=== PATIENT | male | born 1940 | race Caucasian/White ===

== ENCOUNTER 2022-11-04 09:11 | Outpatient (OUT) | payer MEDICARE, SELFPAY ==
[2022-11-04 13:36] LABS: Prostate Specific Antigen Dx <0.13 ng/mL (<=4.00)
== END 2022-11-04 09:12 | disposition home or self-care (01) ==
LOC: LAB 09:15
PROVIDERS: PCP Nurse Practitioner Family; Visit Provider Urology
DX: Z85.46 Personal history of malignant neoplasm of prostate (principal); N40.1 Benign prostatic hyperplasia with lower urinary tract symptoms
CPT/HCPCS: 36415; 84153

== ENCOUNTER 2022-11-04 09:19 | Outpatient (OUT) | payer MEDICARE, SELFPAY ==
[2022-11-04 09:41] LABS: Basophils Absolute Auto 0.1 10^3/uL (0.0-0.1); Basophils Percent Auto 0.8 % (0.2-2.0); Eosinophils Absolute Auto 0.2 10^3/uL (0.0-0.7); Eosinophils Percent Auto 2.3 % (0.9-7.0); Hematocrit 44.9 % (42.0-54.0); Hemoglobin 15.3 g/dL (14.0-18.0); Immature Granulocytes Abs Auto 0.11 10^3/uL (0.00-0.03); Immature Granulocytes Pct Auto 1.7 % (0.0-0.5); Lymphocytes Absolute Auto 0.7 10^3/uL (1.2-3.8); Lymphocytes Percent Auto 10.9 % (20.5-60.0); Mean Corpuscular HGB Conc 34.1 g/dL (29.9-35.2); Mean Corpuscular Hemoglobin 32.1 pg (25.9-34.0); Mean Corpuscular Volume 94.1 fL (80.0-94.0); Mean Platelet Volume 9.5 fL (9.5-13.5); Monocytes Absolute Auto 0.5 10^3/uL (0.3-0.8); Monocytes Percent Auto 7.5 % (1.7-12.0); Neutrophils Percent Auto 76.8 % (43.0-75.0); Platelet Count 195 10^3/uL (150-450); Red Blood Count 4.77 10^6/uL (4.70-6.10); Red Cell Distribution Width 13.4 % (11.0-15.0); White Blood Count 6.5 10^3/uL (4.0-11.0)
[2022-11-04 10:06] LABS: Estimated Average Glucose 126 mg/dL
[2022-11-04 11:24] LABS: Free T4 1.01 ng/dL (0.76-1.46)
[2022-11-04 13:07] LABS: Alanine Aminotransferase 31 U/L (16-63); Albumin Globulin Ratio 1.1; Albumin Level 3.7 g/dL (3.4-5.0); Alkaline Phosphatase 48 U/L (46-116); Anion Gap 15.2; Aspartate Amino Transferase 18 U/L (15-37); BUN Creatinine Ratio 14.9; Bilirubin Total 0.6 mg/dL (0.2-1.0); Calcium 8.8 mg/dL (8.5-10.1); Carbon Dioxide 25.8 mmol/L (21.0-32.0); Chloride 102 mmol/L (98-107); Chol HDL Ratio 5.4; Cholesterol 189 mg/dL (<=200); Estimated GFR (African America >60 (>=60); Estimated GFR (Non-African Ame >60 (>=60); Free T3 2.35 pg/mL (2.18-3.98); Globulin 3.4 g/dL; Glucose 124 mg/dL (74-106); HDL Cholesterol 35 mg/dL (40-60); Sodium 139 mmol/L (136-145); Thyroid Stimulating Hormone 6.817 uIU/mL (0.358-3.740); Total Protein 7.1 g/dL (6.4-8.2); Triglycerides 211 mg/dL (<=150); VLDL CHOLESTEROL 42.2 mg/dL
== END 2022-11-04 09:20 | disposition home or self-care (01) ==
LOC: LAB 09:20
PROVIDERS: PCP Nurse Practitioner Family; Visit Provider Family Medicine
DX: Z00.00 Encounter for general adult medical examination without abnormal findings (principal); I10 Essential (primary) hypertension; E78.1 Pure hyperglyceridemia; E03.9 Hypothyroidism, unspecified; R73.9 Hyperglycemia, unspecified; Z85.46 Personal history of malignant neoplasm of prostate; N40.1 Benign prostatic hyperplasia with lower urinary tract symptoms
CPT/HCPCS: 36415; 80053; 80061; 83036; 84153; 84439; 84443; 84481; 85025

== ENCOUNTER 2023-01-11 13:41 | Outpatient (OUT) | payer MEDICARE, SELFPAY ==
--- NOTE | 2023-01-11 | CONS_ITS ---
CONSULTATION DATE: ??01/11/2023 TO:? Dr. Marion CHIEF COMPLAINT:? Includes right lower back pain. HISTORY OF PRESENT ILLNESS:? Review of systems, past medical/surgical history were obtained and documented on the health questionnaire and is available upon request. He is an 82-year-old male, reports having pain in the above mentioned area for the last four years.? He reports the pain is in his right lower back area, sharp in character, increased with activities such as standing, walking and performing transitioning maneuvers.? He feels most comfortable in the semi-recumbent position.? He denies any change in bowel and bladder habits or new sensorimotor changes in the lower extremities.? He has undergone a home exercise program.? He has also been treated with prednisone orally, gabapentin 100 mg daily and Tylenol p.r.n.; this along with activity modification.? He has failed conservative therapy and is intolerant to nonsteroidal use, and his pain has progressed to the point it has altered his quality of life, level of functioning and sleep pattern.? EXAMINATION:? Notable for patient having no clinical radiculopathy involving the lower extremities.? He did have severe pain with lumbar facet loading maneuvers on the right side from L4 through S1, associated with myofascial spasm.? PLAN:? I have discontinued his gabapentin secondary to ineffectiveness.? I will trial him on Zonegran 50 mg, one at h.s. for seven days, then will increase this to 100 mg at h.s. thereafter.? I have asked him to initiate aquatic therapy.? I have asked him to consider a lumbar MRI without contrast as he has failed conservative.? As well, he has tried two rounds of physical therapy, the last one approximately one year ago, and to proceed with diagnostic right L3, L4, L5 medial branch block for pain from his spondylosis.? Plan was discussed in detail with the patient.? All his questions were answered.? He agrees to proceed with the outlined plan. As part of providing excellent, safe, comprehensive care, the following was completed at our patient's visit: 1. A medication reconciliation and review to ensure accurate knowledge of current/active medications, including asking our patients to inform us about any zerx-gtm-kolzixy medications or herbal remedies/nutritional supplements/alternative remedies. 2. A review to specifically ensure our patients have had annual screening for: elevated body mass index (BMI, see intake chart for exact total), tobacco use, screening for depression, and screening for unhealthy alcohol use.? When screening is concerning, patients are provided with education and the specific recommendation to discuss the concerning health issue and treatment options with their primary care provider. KATHRYN
== END 2023-01-11 13:42 | disposition home or self-care (01) ==
LOC: PM 13:42
PROVIDERS: PCP Nurse Practitioner Family; Visit Provider Anesthesiology
DX: M54.50 Low back pain, unspecified (principal)
CPT/HCPCS: G0463

== ENCOUNTER 2023-01-13 15:41 | Outpatient (RCR) | payer MEDICARE, SELFPAY | END 2023-03-02 13:41 | disposition home or self-care (01) | LOC: PT 15:41 | PROVIDERS: PCP Nurse Practitioner Family; Visit Provider Anesthesiology | DX: M47.816 Spondylosis without myelopathy or radiculopathy, lumbar region (principal) | CPT/HCPCS: 97010; 97012; 97110; 97113; 97140; 97162; 97530; G0283 ==

== ENCOUNTER 2023-01-25 12:07 | Day surgery (SDC) | payer MEDICARE, SELFPAY ==
[2023-01-25 13:01] VITALS: BP 149/77; PULSE 77; RESP 14; TEMP 36.3; O2SAT 96
[2023-01-25 13:48] VITALS: RESP 20
[2023-01-25 13:50] VITALS: BP 149/71; PULSE 89; O2SAT 94
[2023-01-25] MEDS: BUPIVACAINE HCL 0.25% PF 25 MG/10 ML VIAL 4 ML INJ (13:51)
[2023-01-25 13:53] VITALS: BP 147/70; PULSE 80; O2SAT 97
--- NOTE | 2023-01-25 14:01 | W.PM.PROCNOT ---
Date of procedure: 01/25/23 Pre-op diagnosis: Lumbar Spondylosis Post-op diagnosis: same as pre-op Procedure: Right Lumbar 3,4,5 medial branch block Under fluoroscopic guidance Solution injected: 2millilitersMarcaine 0.25% Anesthesia :none Immediate complications none Time out process compliant After informed consent obtained from the patient placed in the Prone proposition . area was prepped and draped in a sterile fashion using Cloraprep .25 gauge spinal needle inserted over each of the above mentioned target areas . [place] were directed towards the target under fluoroscopic guidance . after encountering each of the targets , no indication of intravascular intraneuronal or intrathecal needle tip placement. Then 0 .5 to 1 Milliliter was injected at each level. [place] removed postoperatively. patient transferred to recovery in stable condition to be discharged home after meeting criteria Anesthesia: Local Surgeon: Blaise Acuna Condition: stable
== END 2023-01-25 13:57 | disposition home or self-care (01) ==
LOC: SURGOUT 12:08
PROVIDERS: PCP Nurse Practitioner Family; Visit Provider Anesthesiology Pain Medicine
DX: M47.816 Spondylosis without myelopathy or radiculopathy, lumbar region (principal)
CPT/HCPCS: 64493; 64494

== ENCOUNTER 2023-02-08 14:49 | Outpatient (OUT) | payer MEDICARE, SELFPAY ==
--- NOTE | 2023-02-08 | CONS_ITS ---
CONSULTATION DATE: ??02/08/2023 HISTORY:? Patient returns to the office complaining of 2-7/10 pain in his left buttock area, left lower extremity.? He reports the pain as being 2-7/10 pain, deep aching in character, with a sharp component, increased with activities such as standing and walking.? He reports he feels most comfortable in the semi- recumbent position and sitting.? Denies any change in bowel and bladder habits.? He reports progressive weakness and numbness of his left lower extremity. MEDICATION:? Current medication includes Zonegran 50 mg pills, two pills at bedtime; Tylenol Extra Strength.? He is unable to tolerate nonsteroidal agents.? EXAM:? His examination is notable for patient having 3/5 strength of his left extensor hallucis, a depressed left Achilles reflex.? Straight leg raise on the left side was positive at 90 degrees.? There were no clinical signs consistent with myelopathy, and hypoesthesia along the left L5 dermatome was noted.? There is significant myofascial spasm of the lumbar paravertebral muscles on the left side as well.? IMPRESSION:? Our impression is patient has chronic pain secondary to left L5 radiculopathy. RECOMMENDATIONS:? I recommend patient undergo a lumbosacral MRI without contrast.? Patient has been in physical therapy in the past.? I have asked him to continue with his aquatic program in an independent fashion.? Despite the physical therapy, he continues to have progressive weakness of the left lower extremity.? Will also obtain a lumbar spine film, PA and lateral views, and I have increased the Zonegran, 50 mg pills, three pills at h.s. and to proceed with an L5-S1 epidural injection for the patient?s radicular sign and symptoms. As part of providing excellent, safe, comprehensive care, the following was completed at our patient's visit: 1. A medication reconciliation and review to ensure accurate knowledge of current/active medications, including asking our patients to inform us about any vpyr-lnr-gaacxsz medications or herbal remedies/nutritional supplements/alternative remedies. 2. A review to specifically ensure our patients have had annual screening for: elevated body mass index (BMI, see intake chart for exact total), tobacco use, screening for depression, and screening for unhealthy alcohol use.? When screening is concerning, patients are provided with education and the specific recommendation to discuss the concerning health issue and treatment options with their primary care provider. MTDD
== END 2023-02-08 14:50 | disposition home or self-care (01) ==
LOC: PM 14:50
PROVIDERS: PCP Nurse Practitioner Family; Visit Provider Anesthesiology Pain Medicine
DX: M54.16 Radiculopathy, lumbar region (principal); G89.29 Other chronic pain
CPT/HCPCS: G0463

== ENCOUNTER 2023-02-18 10:21 | Outpatient (OUT) | payer MEDICARE, SELFPAY ==
--- NOTE | 2023-02-18 | MR_ITS ---
The [address] [address] Patient Name: MICHAEL LITTLE MRN: [id number] date: 1940 Sex: M Assigned Patient Location: MRI Current Patient Location: Accession/Order Number: [id number] Exam Date: 02/18/2023 10:50 Report Date: 02/20/2023 19:44 At the request of: KAREN BERRY Procedure: MR lumbar spine wo con MR lumbar spine wo con, 02/18/2023 10:50 AM EDT INDICATION: Lumbar Radiculopathy COMPARISON: Prior x-ray of lumbar spine dated 11/03/2021 TECHNIQUE: Multiplanar, multisequential MRI images of lumbar spine were obtained without contrast. FINDINGS: For dictation purposes, the lowest complete disc space in the lumbar spine considered as S1-S2. 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 There is mild loss of normal physiologic lumbar lordosis. The vertebral height is preserved. The conus medullaris is at the level of L2. No signal abnormality within the visualized spinal cord is noted. Level of T12-L1 is unremarkable. No neural foraminal narrowing or canal stenoses at the level of L1-L2 and L2-L3 is noted. At the level of L3-4, there are disc bulge with mild left neuroforaminal narrowing and no canal stenosis. At the level of L4-5, there are disc bulge with mild to moderate bilateral neuroforaminal narrowing and no canal stenosis. At the level of L5-S1, there grade 1 anterolisthesis uncovering the disc with severe bilateral neuroforaminal narrowing and no canal stenosis. Bilateral S1 nerve roots are in close contact with the disc bulge in the lateral recesses. The paraspinal muscles are unremarkable. Signal abnormality within the sacral bone marrow may be due to postradiation changes in appropriate clinical setting. A sclerotic lesion within the left iliac bone likely a bone island. MR/MR lumbar spine wo con IMPRESSION: Mild to moderate degenerative changes of lumbar spine in particular at L5-S1. Electronically authenticated by: PARTH WALTER Date: 02/20/2023 19:44
== END 2023-02-18 10:22 | disposition home or self-care (01) ==
LOC: MRI 10:21
PROVIDERS: PCP Nurse Practitioner Family; Visit Provider Anesthesiology Pain Medicine
DX: M47.26 Other spondylosis with radiculopathy, lumbar region (principal)
CPT/HCPCS: 72148

== ENCOUNTER 2023-03-15 11:03 | Day surgery (SDC) | payer MEDICARE, SELFPAY ==
[2023-03-15 11:33] VITALS: BP 158/88; PULSE 88; RESP 14; TEMP 36.7; O2SAT 96
[2023-03-15 12:37] VITALS: BP 139/77; PULSE 84; RESP 18; O2SAT 98
[2023-03-15] MEDS: BUPIVACAINE HCL 0.25% PF 25 MG/10 ML VIAL 2 ML INJ (12:38)
[2023-03-15] MEDS: 0.9 % SODIUM CHLORIDE 10 ML SYRINGE - SALINE FLUSH 2 ML INJ (12:38)
[2023-03-15] MEDS: METHYLPREDNISOLONE ACETATE 80 MG/ML VIAL INJ (12:38)
[2023-03-15] MEDS: LIDOCAINE HCL 2% PF 100 MG/5 ML VIAL 2 ML INJ (12:38)
[2023-03-15 12:40] VITALS: PULSE 81; RESP 16; O2SAT 98
[2023-03-15 12:42] VITALS: BP 140/77
[2023-03-15] MEDS: IOHEXOL 300 MG/ML - 50 ML BTL 12 MG INJ (12:47)
--- NOTE | 2023-03-15 13:09 | P.ON_ITS ---
Date of procedure: 03/15/23 Pre-op diagnosis: Lumbar spondylosis Post-op diagnosis: same as pre-op Procedure: Lumbar 5/sacral 1 Epidural Steroid Injection Under fluoroscopic guidance Immediate complications none Solution used for injection: Marcaine 0.25% 2mL, 2cc Normal saline, Depo-Medrol 80mg Omnipaque 3 mL Anesthesia local 2% lidocaine up to 4ml Timeout process compliant After informed consent obtained. Patient brought to the procedure room placed in the prone position. Skin overlying the area was prepped and draped in a sterile fashion using betadine. 25 gauge needle used to raise a skin wheel with local anesthetic over the target area identified under fluoroscopy. A 17 gauge Touhy needle Was inserted over the anesthetized area and directed towards the inter- space under fluoroscopic guidance. Epidural space was identified with loss of resistance technique to air. Needle Tip placement confirmed with injection of contrast solution. Steroid solution was then injected. Anesthesia: Local Surgeon: Blaise Acuna Condition: stable
== END 2023-03-15 12:46 | disposition home or self-care (01) ==
LOC: SURGOUT 11:04
PROVIDERS: PCP Nurse Practitioner Family; Visit Provider Anesthesiology Pain Medicine
DX: M47.816 Spondylosis without myelopathy or radiculopathy, lumbar region (principal)
CPT/HCPCS: 62323; J1040; Q9967

== ENCOUNTER 2023-03-30 10:18 | Outpatient (OUT) | payer MEDICARE, SELFPAY ==
--- NOTE | 2023-03-30 10:39 | PM.CN ---
Consult Note: HPI Data of Consult Patient: known to practice within the last 3 years Requesting Physician: Sahnnon Bradford NP Primary Care Provider: FRANKLYN MCCORD Consult Narrative Reason for consult: f/u Narrative: Dank Barahona a pleasant 82 year old male presents for evaluation and management of low back pain. Today rating pain 5/10 in bilateral legs, extreme numbness and heaviness left leg worse than right. Patient reporting 80% pain relief in low back pain, no change in bilateral leg numbness and weakness/heaviness. Patient does not like the way zonegran makes him feel and wants to restart gabapentin. cc:: CC: Shannon Bradford NP Review of Systems ROS Status of ROS 10 or more systems reviewed and unremarkable except as noted in history and below Meds Home Medications and Allergies Home Medications Medication Instructions Recorded Confirmed Type albuterol sulfate 90 mcg/actuation 1 puff inhalation Q4H PRN 01/14/23 03/15/23 History aerosol inhaler shortness of breath or wheezing budesonide 160 mcg-glycopyr 9 2 inh inhalation BID 01/14/23 03/15/23 History mcg-formot 4.8 mcg/actuation HFA inhaler (Breztri Aerosphere) levothyroxine 50 mcg tablet 50 mcg PO DAILY 01/14/23 03/15/23 History prednisone 5 mg tablet 5 mg PO DAILY 01/14/23 03/15/23 History tamsulosin 0.4 mg capsule 0.4 mg PO BID 01/14/23 03/15/23 History vit C 250 mg-vit E 90 mg-zinc 40 1 tab PO BID 01/14/23 03/15/23 History mg-copper 1 vx-lkerpk-rnnmsb capsule (PreserVision AREDS-2) zonisamide 50 mg capsule 150 mg PO .HS 01/14/23 03/15/23 History Allergies Allergy/AdvReac Type Severity Reaction Status Date / Time No Known Drug Allergies Allergy Verified 01/25/23 12:57 Exam Constitutional Documenting provider has reviewed patient's vital signs: yes Common normals: no apparent distress, oriented x3, healthy appearing, alert and well nourished General appearance: cooperative HENOH Common normals: normocephalic, hearing grossly normal bilaterally and moist oral mucous membranes Head and scalp: normocephalic Eye Common normals: PERRL Pupil: PERRL Neck & C-Spine Common normals: full ROM General: normal visual inspection Chest Common normals: inspection of chest normal Respiratory Common normals: normal respiratory effort, no retractions and no use of accessory muscles Back & Pelvis Lumbar spine/lower back: ROM limited and straight leg raise negative bilaterally Extremity Other: numbness tingling bilateral feet and calves no edema, discoloration. pulses equal and strong decreased sensation to touch bilaterally Neuro Common normals: oriented x3, CN's II-XII intact bilaterally, moves all extremities, no focal motor deficits, no sensory deficits noted and deep tendon reflexes 2+ bilaterally Sensorium/orientation: alert Motor exam: strength 5/5 throughout and no movement abnormalities noted Psych Common normals: mental status grossly normal, thought process normal, cooperative, affect normal, speech normal and activity/motor behavior normal Speech: normal speech Thought process: normal thought process Results Additional Findings Additional findings: I have checked an OARRS report on this patient today and there are no aberrancies noted in the prescribing history.?? A drug screen was completed and reviewed within the last year, and if there has not been a drug screen completed we ordered one today to monitor higher risk, state monitored pain medication use. As part of providing excellent, safe, comprehensive care, the following was completed at our patient's visit: 1. A medication reconciliation and review to ensure accurate knowledge of current/active medications, including asking our patients to inform us about any jhxj-zez-gtqneli medications or herbal remedies/nutritional supplements/alternative remedies. 2. A review to specifically ensure our patients have had annual screening for: elevated body mass index (BMI), tobacco use, screening for depression, and screening for unhealthy alcohol use. When screening is concerning, patients are provided with education and the specific recommendation to discuss the concerning health issue and treatment options with their primary care provider. Assessment and Plan Assessment and Plan (1) Lumbar radiculopathy: (2) Neuropathy: (3) Lumbar spondylosis: Plan emg and ncv stop zonegran start gabapentin 100mg hs for two weeks then increase to 2-3 capsules daily f/u 1 month
== END 2023-03-30 10:19 | disposition home or self-care (01) ==
LOC: PM 10:18
PROVIDERS: PCP Nurse Practitioner Family; Visit Provider Nurse Practitioner
DX: M54.16 Radiculopathy, lumbar region (principal); G62.9 Polyneuropathy, unspecified; M47.816 Spondylosis without myelopathy or radiculopathy, lumbar region
CPT/HCPCS: G0463

== ENCOUNTER 2023-05-05 09:59 | Outpatient (OUT) | payer MEDICARE, SELFPAY ==
--- OUTSIDE RECORDS SUMMARY | 2023-05-05 10:12 | XMS_ITS | CCD ---
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 removed completely through an open incision or with a laparoscope or robotics. ?Transurethral resection of the prostate (TURP). In this procedure, a tool is inserted through the opening at the tip of the penis (urethra). It is used to cut away tissue of the inner core of the prostate. The pieces are removed through the same opening of the penis. This removes the blockage. ?Transurethral incision (TUIP). In this procedure, small cuts are made in the prostate. This lessens the prostate's pressure on the urethra. ?Transurethral microwave thermotherapy (TUMT). This procedure uses microwaves to create heat. The heat destroys and removes a small amount of prostate tissue. ?Transurethral needle ablation (TUNA). This procedure uses radio frequencies to destroy and remove a small amount of prostate tissue. ?Interstitial laser coagulation (ILC). This procedure uses a laser to destroy and remove a small amount of prostate tissue. ?Transurethral electrovaporization (TUVP). This procedure uses electrodes to destroy and remove a small amount of prostate tissue. ?Prostatic urethral lift. This procedure inserts an implant to push the lobes of the prostate away from the urethra. Follow these instructions at home: Take [id number] and prescription medicines only as told by your health care provider. Monitor your symptoms for any changes. Contact your health care provider with any changes. Avoid drinking large amounts of liquid before going to bed or out in public. Avoid or reduce how much caffeine or alcohol you drink. Give yourself time when you urinate. Keep all follow-up visits as told by your health care provider. This is important. Contact a health care provider if: You have unexplained back pain. Your symptoms do not get better with treatment. You develop side effects from the medicine you are taking. Your urine becomes very dark or has a bad smell. Your lower abdomen becomes distended and you have trouble passing your urine. Get help right away if: You have a fever or chills. You suddenly cannot urinate. You feel lightheaded, or very dizzy, or you faint. There are large amounts of blood or clots in the urine. Your urinary problems become hard to manage. You develop moderate to severe low back or flank pain. The flank is the side of your body between the ribs and the hip. These symptoms may represent a serious problem that is an emergency. Do not wait to see if the symptoms will go away. Get medical help right away. Call your local emergency services (911 in the [place] Do not drive yourself to the hospital. Summary Benign prostatic hyperplasia (BPH) is an enlarged prostate that is caused by the normal aging process and not by cancer. An enlarged prostate can press on the urethra. This can make it hard to pass urine. This condition is part of a normal aging process and is more likely to develop in men over the age of 50 years. Get help right away if you suddenly cannot urinate. This information is not intended to replace advice given to you by your health care provider. Make sure you discuss any questions you have with your health care provider. Document Released: 04/25/2006 Document Revised: 03/20/2019 Document Reviewed: 05/30/2017 [employer] Patient Education 2020 [employer]. Follow Up Care 11/03/2020 12:25:53 With:ALOK GARZON, Bigg Isabel, URL Address: [facility] [address], [place] [id number]- [phone] When:Within 1 Year(s) Comments:1 year fu w PSA [facility] Evaluation + Plan note Note Date & Type Note Facility Evaluation + Plan note Future Appointments Appointment Date:11/19/2022 11:00:00 AM Scheduled Provider:Bigg DUNCAN MD Location:[facility] Appointment Type:URO Office Visit Diagnostic Tests PendingPSA Total 11/16/21PSA Total 11/16/21 [facility] Evaluation + Plan note Note Date & Type Note Facility Evaluation + Plan note Future Appointments Appointment Date:11/21/2023 09:45:00 AM Scheduled Provider:Bigg DUNCAN MD Location:[facility] Appointment Type:URO Office Visit Diagnostic Tests PendingPSA Total 10/08/23 [facility] Hospital course Narrative Note Date & Type Note Facility Hospital course Narrative No data available for this section [facility] Progress note Note Date & Type Note Facility Progress note No data available for this section [facility] Summary Purpose Family History No Family History Records FoundNo Family History Records FoundNo Family History Records FoundNo Family History Records Found Advance Directives No Advanced Directives Records FoundNo Advanced Directives Records FoundNo Advanced Directives Records FoundNo Advanced Directives Records Found Additional Source Comments (unrecognized sect ion and content) No Status Records FoundNo Status Records FoundNo Status Records FoundNo Status Records Found INFORMATION SOURCE (unrecogn ized section and content) DATE CREATED AUTHOR 11/02/2017 [facility] DATE CREATED AUTHOR AUTHOR'S ORGANIZ ATION 05/31/2021 [facility] DATE CREATED AUTHOR AUTHOR'S ORGANIZ ATION [facility]/30/2022 [facility] DATE CREATED AUTHOR AUTHOR'S ORGANIZ ATION 11/23/2022 [facility] Care Team (unrecognized sect ion and content) Personnel Name: FRANKLYN BENAVIDES CNP Address: [address] [place] [address] Personnel Name: FRANKLYN BENAVIDES CNP Address: Address: [address] [place] [address] FOR RECORDS PERTAINING TO PATIENTS WHO ARE OR HAVE BEEN ENROLLED IN A CHEMICAL DEPENDENCY/SUBSTANCEABUSE PROGRAM, SOME INFORMATION MAY BE OMITTED. This clinical summary was aggregated from multiple sources. Caution should be exercised in using it in the provision of clinical care. This summary normalizes information from multiple sources, and as a consequence, information in this document may materially change the coding, format and clinical context of patient data. In addition, data may be omitted in some cases. CLINICAL DECISIONS SHOULD BE BASED ON THE PRIMARY CLINICAL RECORDS. [facility] [employer] [facility]. provides no warranty or guarantee of the accuracy or completeness of information in this document.
--- NOTE | 2023-05-05 10:13 | P.CN_ITS ---
Consult Note: HPI Data of Consult Patient: known to practice within the last 3 years Requesting Physician: Shannon Bradford NP Primary Care Provider: FRANKLYN MCCORD Consult Narrative Reason for consult: f/u Narrative: Dank Barahona a pleasant 82 year old male presents for evaluation and management of low back pain and numbness to bilateral legs/feet. Patient finding benefit to gabapentin 100mg daily, did not try increasing as previously discussed. EMG NCV confirmed mild chronic change so S1. Patient feels his symptoms at this time are tolerable and improved. cc:: CC: Shannon Bradford NP Review of Systems ROS Status of ROS 10 or more systems reviewed and unremark able except as noted in history and below Meds Home Medications and Allergies Home Medications Medication Instructions Recorded Confirmed Type albuterol sulfate 90 mcg/actuation 1 puff inhalation Q4H PRN 01/14/23 03/15/23 History aerosol inhaler shortness of breath or wheezing budesonide 160 mcg-glycopyr 9 2 inh inhalation BID 01/14/23 03/15/23 History mcg-formot 4.8 mcg/actuation HFA inhaler (Breztri Aerosphere) levothyroxine 50 mcg tablet 50 mcg PO DAILY 01/14/23 03/15/23 History prednisone 5 mg tablet 5 mg PO DAILY 01/14/23 03/15/23 History tamsulosin 0.4 mg capsule 0.4 mg PO BID 01/14/23 03/15/23 History vit C 250 mg-vit E 90 mg-zinc 40 1 tab PO BID 01/14/23 03/15/23 History mg-copper 1 [id number] capsule (PreserVision AREDS-2) zonisamide 50 mg capsule 150 mg PO .HS 01/14/23 03/15/23 History Allergies Allergy/AdvReac Type Severity Reaction Status Date / Time No Known Drug Allergies Allergy Verified 01/25/23 12:57 Exam Constitutional Documenting provider has reviewed patient's vital signs: yes Common normals: no apparent distress, oriented x3, healthy appearing, alert and well nourished General appearance: cooperative HENMT Common normals: normocephalic, hearing grossly normal bilaterally and moist oral mucous membranes Head and scalp: normocephalic Eye Common normals: PERRL Pupil: PERRL Neck & C-Spine Common normals: full ROM General: normal visual inspection Chest Common normals: inspection of chest normal Respiratory Common normals: normal respiratory effort, no retractions and no use of accessory muscles Back & Pelvis Lumbar spine/lower back: ROM limited and straight leg raise negative bilaterally Extremity Other: numbness tingling bilateral feet and calves no edema, discoloration. pulses equal and strong decreased sensation to touch bilaterally Neuro Common normals: oriented x3, CN's II-XII intact bilaterally, moves all extremities, no focal motor deficits, no sensory deficits noted and deep tendon reflexes 2+ bilaterally Sensorium/orientation: alert Motor exam: strength 5/5 throughout and no movement abnormalities noted Psych Common normals: mental status grossly normal, thought process normal, cooperative, affect normal, speech normal and activity/motor behavior normal Speech: normal speech Thought process: normal thought process Assessment and Plan Assessment and Plan (1) Neuropathy: (2) Lumbar radiculopathy: (3) Lumbar spondylosis: Plan gabapentin 100-200mg daily f/u 6 months, consider caudal JESUS in the future
== END 2023-05-05 10:00 | disposition home or self-care (01) ==
LOC: PM 09:59
PROVIDERS: PCP Nurse Practitioner Family; Visit Provider Nurse Practitioner
DX: G62.9 Polyneuropathy, unspecified (principal); M54.16 Radiculopathy, lumbar region; M47.816 Spondylosis without myelopathy or radiculopathy, lumbar region
CPT/HCPCS: G0463

== ENCOUNTER 2023-07-22 09:21 | Outpatient (OUT) | payer MEDICARE, SELFPAY ==
--- OUTSIDE RECORDS SUMMARY | 2023-07-22 09:32 | XMS_ITS | CCD ---
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 Copies to: Uziel [...] SCV 12/01/201645 Dictated By: Uziel Mcgovern MD, [facility] 12/01/20 1217 Signed By: 12/01/201645 Normal [facility] Hemogram CBC Without Diffon 12-01-2020 Erythrocyte distribution width (RBC) [Ratio] 14.4 % Normal 12.0-14.8 [facility] Comment on above: Performed By: #### B MP, CKMB, HS TROP, CK, CBCNO #### [address] Hematocrit (Bld) [Volume fraction] 43.2 % Normal 38.8-50.0 [facility] Comment on above: Performed By: #### B MP, CKMB, HS TROP, CK, CBCNO #### [address] Hemoglobin (Bld) [Mass/Vol] 14.9 g/dL Normal 13.0-17.0 [facility] Comment on above: Performed By: #### B MP, CKMB, HS TROP, CK, CBCNO #### [address] MCH (RBC) [Entitic mass] 31.3 pg Normal 27.5-35.2 [facility] Comment on above: Performed By: #### B MP, CKMB, HS TROP, CK, CBCNO #### [address] MCV (RBC) [Entitic vol] 91.1 fL Normal 83.5-101 [facility] Comment on above: Performed By: #### B MP, CKMB, HS TROP, CK, CBCNO #### [address] Mean Corpuscular HGB Conc 34.4 g/dL Normal 32.5-35.6 [facility] Comment on above: Performed By: #### B MP, CKMB, HS TROP, CK, CBCNO #### [address] Platelet mean volume (Bld) [Entitic vol] 8.0 fL Normal 6.6-10.1 [facility] Comment on above: Result Comment: PERF ORMED BY: [place] [address] PATHOLOGIST [employer] GUILHERME BRADFORD M.D. Performed By: #### B MP, CKMB, HS TROP, CK, CBCNO #### [address] Platelets (Bld) [#/Vol] 193 10*3/uL Normal 150-450 [facility] Comment on above: Performed By: #### B MP, CKMB, HS TROP, CK, CBCNO #### [facility] [address] RBC (Bld) [#/Vol] 4.74 10*6/uL Normal 3.90-5.60 [facility] Comment on above: Performed By: #### B MP, CKMB, HS TROP, CK, CBCNO #### [address] WBC (Bld) [#/Vol] 5.8 10*3/uL Normal 4.1-10.5 [facility] Comment on above: Performed By: #### B MP, CKMB, HS TROP, CK, CBCNO #### [address] Troponin I High Sensitivityo n 12-01-2020 Troponin I High Sensitivity 3 pg/mL Normal 0-20 [facility] Comment on above: Result Comment: PERF ORMED BY: [place] [address] PATHOLOGIST [employer] GUILHERME BRADFORD M.D. Performed By: #### B MP, CKMB, HS TROP, CK, CBCNO #### [address] Troponin I High Sensitivity 4 pg/mL Normal 0-20 [facility] Comment on above: Result Comment: PERF ORMED BY: [place] [address] PATHOLOGIST [employer] GUILHERME BRADFORD M.D. Performed By: #### C MP, BNP, CBC, HS TROP #### [place] [address] [place] XR chest 1V portableon 12-01 XR chest 1V portable [facility] Main [place] [address] [place] [address] XRay Report Signed Patient: Michael Barahona MR#: [id number] 425 : 1940 Acct:[id number] Age/Sex: 79 / M ADM Date: 12/01/20 Loc: 4N Room: [address] [place] [address] Type: ADM IN Attending Dr: Evert Dent [...] Vicky Bonner M.D.12/01/2020 7:40 AM Dictation Location: [place] [address] Transcribed By: [facility] 12/01/20 0740 Dictated By: Vicky Bonner MD 12/01/20 0739 Signed By: 12/01/20 0740 Normal [facility] ECG 12 lead ECGon 11-30-2020 ECG 12 lead ECG [facility] [place] [address] Electrocardiograph Report Signed Patient: Michael Barahona MR#: [id number] 425 : 1940 Acct:[id number] Age/Sex: 79 / M ADM Date: 12/01/20 Loc: 4N Room: [address] [place] [address] Type: DIS INOo Attending Dr: Evert Dent [...] Rowland DO 11/30/201732 Signed By: 12/02/20 0800 [facility] Vital Signs Date Time Vital Sign Value Performing Clinician Sarah sanchez 11-19-2022 11:29-0400 Blood Pressure Location Bigg DUNCAN [facility] 11-19-2022 11:29-0400 Diastolic blood pressure 77 mm[Hg] Bigg DUNCAN [facility] 11-19-2022 11:29-0400 Heart rate 69 /min Bigg DUNCAN [facility] 11-19-2022 11:29-0400 Respiratory rate 16 /min Bigg DUNCAN [facility] 11-19-2022 11:29-0400 Systolic blood pressure 119 mm[Hg] Bigg DUNCAN [facility] Encounters Encounter Date Encounter Type Care Provider Facility Start: 11-21-2023 ambulatory Bigg DUNCAN Facili ty:[facility] Start: 11-19-2022 End: 11-20-2022 ambulatory Bigg DUNCAN Facility:[facility] Start: 11-19-2022 End: 11-19-2022 Patient encounter procedure Bigg DUNCAN [facility] Start: 12-31-2021 End: 01-15-2022 ambulatory FRANKLYN MCCORD Facility: Start: 11-16-2021 End: 11-16-2021 Patient encounter procedure Bigg DUNCAN [facility] Start: 11-03-2021 End: 11-04-[address] ALEXEY MICHELLE Facility:[facility] Start: 10-21-2021 End: 10-22-[address] FERNANDO GILLSEPIE Facility:[facility] Start: 10-20-2021 End: 10-21-[address] BIGG DUNCAN Facility:[facility] Start: 01-03-2017 End: 01-04-2017 Ambulatory DEFAULT PHYSICIAN Facility:[facility] Procedures Date Procedure Procedure Detail Performing Clinician Start: 10-20-[address] ALEXEY MICHELLE Comment on above: Performed By: #### PSAD #### [facility] [address] [place] [address] Dr. Vannessa Quiroga Start: 01-08-2020 Cystoscopy Bigg DUNCAN Start: 10-14-2016 Brachytherapy Bigg DUNCAN Start: [...] DUNCAN Payers Date Payer Category Payer Unknown [id number] 1940 Unknown [id number] 2.16.84 [id number] 1940 Unknown [id number] 2.16.84 [id number] 1940 Unknown [id number] 2.16.84 [id number] 1940 Unknown [id number] 2.16.84 [id number] 1940 Unknown [id number] 2.16.8 [id number] 1940 Unknown [id number] 2.16.8 [id number] Unknown Social History Date Type Detail Facility Start: 01-08-2020 Tobacco smoking status Ex-smoker (fi nding) [facility] Sex Assigned At Male [facility] Functional Status Date Assessment Result Facility 11-19-2022 Functional Status N/A [facility] 11-16-2021 Functional Status N/A [facility] Discharge instructions 11-19-2022 Note Date & [...] urethra. Follow these instructions at home: Take [id number] and prescription medicines only as told by [...] provider. Document Revised: 11/11/2021 Document Reviewed: 11/11/2021 [employer] Patient Education 2022 [employer]. Follow Up Care 11/16/2021 14:26:07 With:ALOK GARZON, Bigg Isabel, URL Address: [facility] [address], [place] [address]- When: Unknown [facility] Hospital Discharge instructions 11-16-2021 Note Date & [...] 04/25/2006 Document Revised: 01/12/2019 Document Reviewed: 03/25/2017 [employer] Patient Education 2020 [employer]. 11/16/2021 14:13:15 Benign Prostatic Hyperplasia Benign Prostatic [...] urethra. Follow these instructions at home: Take [id number] and prescription medicines only as told by [...] 04/25/2006 Document Revised: 03/20/2019 Document Reviewed: 05/30/2017 [employer] Patient Education 2020 [employer]. Follow Up Care 11/03/2020 12:25:53 With:ALOK GARZON, Bigg Isabel, URL Address: [facility] [address], [place] [address]- [phone] When:Within 1 Year(s) Comments:1 year fu w PSA [facility] Evaluation + Plan note Note Date & Type Note Facility Evaluation + Plan note Future Appointments Appointment Date:11/19/2022 11:00:00 AM Scheduled Provider:Bigg DUNCAN MD Location:[facility] Appointment Type:URO Office Visit Diagnostic Tests PendingPSA Total 11/16/21PSA Total 11/16/21 [facility] Evaluation + Plan note Note Date & Type Note Facility Evaluation + Plan note Future Appointments Appointment Date:11/21/2023 09:45:00 AM Scheduled Provider:Bigg DUNCAN MD Location:[facility] Appointment Type:URO Office Visit Diagnostic Tests PendingPSA Total 10/08/23 [facility] Hospital course Narrative Note Date & Type Note Facility Hospital course Narrative No data available for this section [facility] Progress note Note Date & Type Note Facility Progress note No data available for this section [facility] Summary Purpose Family History No Family History [...] and content) DATE CREATED AUTHOR 11/02/2017 [facility] DATE CREATED AUTHOR AUTHOR'S ORGANIZ ATION 05/31/2021 [facility] DATE CREATED AUTHOR AUTHOR'S ORGANIZ ATION 04/30/2022 [facility] DATE CREATED AUTHOR AUTHOR'S ORGANIZ ATION 11/23/2022 [facility] Care Team (unrecognized sect ion and content) Personnel Name: FRANKLYN BENAVIDES CNP Address: [address] [place] [address] Personnel Name: FRANKLYN BENAVIDES CNP Address: Address: [address] [place] [address] FOR RECORDS PERTAINING TO PATIENTS WHO ARE [...] BE BASED ON THE PRIMARY CLINICAL RECORDS. [facility] [employer] provides no warranty or guarantee of the accuracy or completeness of information in this document.
[2023-07-22 09:44] LABS: Basophils Absolute Auto 0.1 10^3/uL (0.0-0.1); Basophils Percent Auto 0.8 % (0.2-2.0); Eosinophils Absolute Auto 0.2 10^3/uL (0.0-0.7); Eosinophils Percent Auto 2.2 % (0.9-7.0); Hemoglobin 15.1 g/dL (14.0-18.0); Immature Granulocytes Abs Auto 0.08 10^3/uL (0.00-0.03); Immature Granulocytes Pct Auto 1.1 % (0.0-0.5); Lymphocytes Absolute Auto 1.2 10^3/uL (1.2-3.8); Lymphocytes Percent Auto 17.1 % (20.5-60.0); Mean Corpuscular HGB Conc 32.8 g/dL (29.9-35.2); Mean Corpuscular Hemoglobin 32.2 pg (25.9-34.0); Mean Corpuscular Volume 98.1 fL (80.0-94.0); Mean Platelet Volume 10.2 fL (9.5-13.5); Monocytes Absolute Auto 0.8 10^3/uL (0.3-0.8); Monocytes Percent Auto 11.1 % (1.7-12.0); Neutrophils Absolute Auto 4.8 10^3/uL (1.4-6.5); Neutrophils Percent Auto 67.7 % (43.0-75.0); Platelet Count 213 10^3/uL (150-450); Red Blood Count 4.69 10^6/uL (4.70-6.10); Red Cell Distribution Width 12.6 % (11.0-15.0); White Blood Count 7.1 10^3/uL (4.0-11.0)
[2023-07-22 10:44] LABS: Alanine Aminotransferase 26 U/L (16-63); Albumin Globulin Ratio 1.2; Albumin Level 3.8 g/dL (3.4-5.0); Alkaline Phosphatase 44 U/L (46-116); Anion Gap 11.7; Aspartate Amino Transferase 17 U/L (15-37); BUN Creatinine Ratio 14.3; Bilirubin Total 0.7 mg/dL (0.2-1.0); Calcium 9.2 mg/dL (8.5-10.1); Carbon Dioxide 28.2 mmol/L (21.0-32.0); Chloride 102 mmol/L (98-107); Estimated GFR (African America >60 (>=60); Estimated GFR (Non-African Ame >60 (>=60); Free T3 2.31 pg/mL (2.18-3.98); Globulin 3.2 g/dL; Glucose 105 mg/dL (74-106); Potassium 3.9 mmol/L (3.5-5.1); Sodium 138 mmol/L (136-145); Thyroid Stimulating Hormone 5.299 uIU/mL (0.358-3.740)
[2023-07-22 10:48] LABS: Bilirubin Urine NEGATIVE (NEGATIVE); Blood Urine NEGATIVE (NEGATIVE); Clarity Urine CLEAR (CLEAR); Color Urine LT. YELLOW (YELLOW); Glucose Urine UA NEGATIVE (NEGATIVE); Ketones Urine NEGATIVE (NEGATIVE); Leukocyte Esterase Urine NEGATIVE (NEGATIVE); Nitrite Urine NEGATIVE (NEGATIVE); Protein Urine NEGATIVE (NEG/TRACE); Specific Gravity Urine 1.025 (1.005-1.025); Urobilinogen Urine 0.2 EU/dL (0.2-1.0)
[2023-07-22 10:57] LABS: Bacteria Urine NONE SEEN #/HPF (NONE SEEN); Crystals Seen? None Seen #/HPF (None Seen); Mucus Urine TRACE (NONE SEEN); RBC Urine 0-2 #/HPF (0-2); Squamous Epithelial Cell Urine RARE #/LPF (NONE/RARE); WBC Urine 0-2 #/HPF (NONE SEEN)
[2023-07-22 10:58] LABS: Cast Seen? NONE SEEN #/LPF (NONE SEEN)
== END 2023-07-22 09:22 | disposition home or self-care (01) ==
LOC: LAB 09:24
PROVIDERS: PCP Nurse Practitioner Family; Visit Provider Nurse Practitioner Family
DX: R53.83 Other fatigue (principal)
CPT/HCPCS: 36415; 80053; 81001; 84436; 84443; 84481; 85025; 87086

== ENCOUNTER 2023-08-31 12:52 | Outpatient (OUT) | payer MEDICARE, SELFPAY ==
--- NOTE | 2023-08-31 17:13 | W.PM.PROCNOT ---
Date of procedure: 08/31/23 Procedure: Procedure 6-minute walk Date 08/31/2023 Indication Dyspnea MMRC 3 Procedure A 6-minute walk (6MW) was initiated according to standard protocol. Resting BP: 139/78 HR: 89 SpO2: 98% FiO2: 21% (RA) Patti: 0 Patient ambulated for a total of 2 minutes with SpO2 dropping to 88% on RA. New 6MW was initiated on 2L/min. A second 6MW was initiated. HR: 84 SpO2: 97% FiO2: 2L/min Patti: 0 Patient ambulated for a total of 6 minutes with lowest SpO2 dropping to 90% on 2L/min O2. Maximum HR was 116. Maximum Patti was 3. Patient was recovered Recovery BP: 138/85 HR: 97 SpO2: 95% FiO2: 2L/min O2 Patti: 0 Total number of stops: None Total Distance walked: 232m which is 107% of predicted walk distance Impressions: No resting hypoxemia. Ambulatory desaturations on room air successfully resolved on 2L/min supplemental O2. Excellent walk distance. Recommendations: Supplemental O2 @ 2L/min with activity/ambulation. Clinical correlation required.
== END 2023-08-31 12:53 | disposition home or self-care (01) ==
LOC: CARD 12:53
PROVIDERS: PCP Nurse Practitioner Family; Visit Provider Nurse Practitioner Family
DX: J44.9 Chronic obstructive pulmonary disease, unspecified (principal)
CPT/HCPCS: 94618

== ENCOUNTER 2023-09-21 10:37 | Outpatient (OUT) | payer MEDICARE, SELFPAY ==
--- OUTSIDE RECORDS SUMMARY | 2023-09-21 10:57 | XMS_ITS | CCD ---
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 [facility] [address] [place] [address] [place] Platelets (Bld) [#/Vol] 239 10*3/uL Normal 150-450 [facility] Comment on above: Performed By: #### C MP, BNP, CBC, HS TROP #### [facility] [address] [place] [address] RBC (Bld) [#/Vol] 5.19 10*6/uL Normal 3.90-5.60 [facility] Comment on above: Performed By: #### C MP, BNP, CBC, HS TROP #### [address] WBC (Bld) [#/Vol] 8.3 10*3/uL Normal 4.5-11.0 [facility] Comment on above: Performed By: #### C MP, BNP, CBC, HS TROP #### [address] Comprehensive Metabolic Pane johnny 12-01-2020 Albumin [Mass/Vol] 4.4 g/dL Normal 3.2-5.5 [facility] Comment on above: Performed By: #### C MP, BNP, CBC, HS TROP #### [address] Albumin/Globulin [Mass ratio] 1.6 {ratio} Normal [facility] Comment on above: Performed By: #### C MP, BNP, CBC, HS TROP #### [address] ALP [Catalytic activity/Vol] 48 U/L Normal 32-92 [facility] Comment on above: Performed By: #### C MP, BNP, CBC, HS TROP #### [address] ALT [Catalytic activity/Vol] 28 U/L Normal 10-60 [facility] Comment on above: Performed By: #### C MP, BNP, CBC, HS TROP #### [address] AST [Catalytic activity/Vol] 30 U/L Normal 10-42 [facility] Comment on above: Performed By: #### C MP, BNP, CBC, HS TROP #### [address] Bilirubin [Mass/Vol] 1.1 mg/dL Normal 0.3-1.2 [facility] Comment on above: Performed By: #### C MP, BNP, CBC, HS TROP #### [facility] [address] Calcium [Mass/Vol] 9.7 mg/dL Normal 8.2-10.2 [facility] Comment on above: Performed By: #### C MP, BNP, CBC, HS TROP #### [facility] [address] Chloride [Moles/Vol] 101 mmol/L Normal 95-114 [facility] Comment on above: Performed By: #### C MP, BNP, CBC, HS TROP #### [address] CO2 [Moles/Vol] 20.9 mmol/L Low 22.0-30.0 [facility] Comment on above: Performed By: #### C MP, BNP, CBC, HS TROP #### [address] Creatinine [Mass/Vol] 1.33 mg/dL High 0.64-1.27 [facility] Comment on above: Performed By: #### C MP, BNP, CBC, HS TROP #### [address] Creatinine Clr Calc Pharmacy 42.86 [facility] Comment on above: Result Comment: PERF ORMED BY: [place] [address] PATHOLOGIST CLOTHES SHAKER GUILHERME BRADFORD M.D. Performed By: #### C MP, BNP, CBC, HS TROP #### [address] Estimated GFR ( Kacie > 60 Normal [facility] Comment on above: Result Comment: GFR estimated reference range: According to KDOQI guidelines, <60 ml/min/1.73m2 is sufficient to diagnose a patient with chronic kidney disease. Performed By: #### C MP, BNP, CBC, HS TROP #### [address] Estimated GFR (Non- Am 52 Normal [facility] Comment on above: Performed By: #### C MP, BNP, CBC, HS TROP #### [facility] [address] Globulin (S) [Mass/Vol] 2.7 g/dL Normal [facility] Comment on above: Performed By: #### C MP, BNP, CBC, HS TROP #### [address] Glucose [Mass/Vol] 109 mg/dL High 70-100 [facility] Comment on above: Result Comment: [place] Glucose Reference Range is dependent on time and content of last meal. Glucose of more than 200 mg/dL in a nonstressed, ambulatory subject supports the diagnosis of Diabetes Mellitus. ADA recommended reference range Performed By: #### C MP, BNP, CBC, HS TROP #### [address] Potassium [Moles/Vol] 4.4 mmol/L Normal 3.5-5.1 [facility] Comment on above: Performed By: #### C MP, BNP, CBC, HS TROP #### [address] Protein [Mass/Vol] 7.1 g/dL Normal 6.1-7.9 [facility] Comment on above: Performed By: #### C MP, BNP, CBC, HS TROP #### [address] Sodium [Moles/Vol] 139 mmol/L Normal 136-146 [facility] Comment on above: Performed By: #### C MP, BNP, CBC, HS TROP #### [address] Urea nitrogen [Mass/Vol] 25 mg/dL High 9-23 [facility] Comment on above: Performed By: #### C MP, BNP, CBC, HS TROP #### [place] [address] [place] Creatine Kinaseon 07-26-2021 CK [Catalytic activity/Vol] 546 U/L High 22-269 [facility] Comment on above: Performed By: #### B MP, CKMB, HS TROP, CK, CBCNO #### [facility] [address] [place] [id number] [place] Creatinine Kinase MBon 12-01 CK.MB [Mass/Vol] 4.5 ng/mL Normal 0.6-6.3 [facility] Comment on above: Performed By: #### B MP, CKMB, HS TROP, CK, CBCNO #### [facility] [address] [place] [address] [facility] CKMB Relative Index 0.8 % Normal 0.00-2.50 [facility] Comment on above: Performed By: #### B MP, CKMB, HS TROP, CK, CBCNO #### [facility] [address] [place] [id number] [facility] ECG 12 lead ECGon 12-01-2020 ECG 12 lead ECG [facility] Main [place] [address] [place] [address] Electrocardiograph Report Signed Patient: Michael Barahona MR#: [id number] 425 : 1940 Acct:[id number] Age/Sex: 79 / M ADM Date: 12/01/20 Loc: Room: [address] [place] [address] Type: ADM INOo Attending Dr: Evert Dent [...] DO 12/01/20 0734 Signed By: 12/01/20 1214 [facility] echo transthoracicon [facility] echo transthoracic [facility] Main [place] [address] [place], [place] [id number] Echocardiogram Signed Patient: Michael Barahona MR#: [id number] 425 : 1940 Acct:[id number] Age/Sex: 79 / M ADM Date: 12/01/20 Loc: Room: [address] [place] [address] Type: ADM INOo Attending Dr: Evert Dent DO Ordering Provider: Shweta Garcia DO Date of Service: 12/01/20 [facility] echo transthoracic: pericardial effusion Copies to: Uziel [...] mmHg RAP systole: 3.0 mmHg Transcribed By: VERA 12/01/201645 Dictated By: Uziel Mcgovern MD, [facility] 12/01/20 1217 Signed By: 12/01/201645 Normal [facility] Hemogram CBC Without Diffon 12-01-2020 Erythrocyte distribution width (RBC) [Ratio] 14.4 % Normal 12.0-14.8 [facility] Comment on above: Performed By: #### B MP, CKMB, HS TROP, CK, CBCNO #### [facility] [address] [place] [address] Hematocrit (Bld) [Volume fraction] 43.2 % Normal 38.8-50.0 [facility] Comment on above: Performed By: #### B MP, CKMB, HS TROP, CK, CBCNO #### [facility] [address] Hemoglobin (Bld) [Mass/Vol] 14.9 g/dL Normal 13.0-17.0 [facility] Comment on above: Performed By: #### B MP, CKMB, HS TROP, CK, CBCNO #### [address] MCH (RBC) [Entitic mass] 31.3 pg Normal 27.5-35.2 [facility] Comment on above: Performed By: #### B MP, CKMB, HS TROP, CK, CBCNO #### [address] MCV (RBC) [Entitic vol] 91.1 fL Normal 83.5-101 [facility] Comment on above: Performed By: #### B MP, CKMB, HS TROP, CK, CBCNO #### [address] Mean Corpuscular HGB Conc 34.4 g/dL Normal 32.5-35.6 [facility] Comment on above: Performed By: #### B MP, CKMB, HS TROP, CK, CBCNO #### [address] Platelet mean volume (Bld) [Entitic vol] 8.0 fL Normal 6.6-10.1 [facility] Comment on above: Result Comment: PERF ORMED BY: [place] [address] PATHOLOGIST CLOTHES SHAKER GUILHERME BRADFORD M.D. Performed By: #### B MP, CKMB, HS TROP, CK, CBCNO #### [address] Platelets (Bld) [#/Vol] 193 10*3/uL Normal 150-450 [facility] Comment on above: Performed By: #### B MP, CKMB, HS TROP, CK, CBCNO #### [address] RBC (Bld) [#/Vol] 4.74 10*6/uL Normal 3.90-5.60 [facility] Comment on above: Performed By: #### B MP, CKMB, HS TROP, CK, CBCNO #### [address] WBC (Bld) [#/Vol] 5.8 10*3/uL Normal 4.1-10.5 [facility] Comment on above: Performed By: #### B MP, CKMB, HS TROP, CK, CBCNO #### [facility] [address] [place] [address] Troponin I High Sensitivityo n 12-01-2020 Troponin I High Sensitivity 3 pg/mL Normal 0-20 [facility] Comment on above: Result Comment: PERF ORMED BY: [place] [address] PATHOLOGIST CLOTHES SHAKER GUILHERME BRADFORD M.D. Performed By: #### B MP, CKMB, HS TROP, CK, CBCNO #### [facility] [address] [place] [address] Troponin I High Sensitivity 4 pg/mL Normal 0-20 [facility] Comment on above: Result Comment: PERF ORMED BY: [place] [address] PATHOLOGIST CLOTHES SHAKER GUILHERME BRADFORD M.D. Performed By: #### C MP, BNP, CBC, HS TROP #### [facility] [address] [place] [address] XR chest 1V portableon 12-01 XR chest 1V portable [facility] [place] [address] [place] [address] XRay Report Signed Patient: Michael Barahona MR#: [id number] 425 : 1940 Acct:[id number] Age/Sex: 79 / M ADM Date: 12/01/20 Loc: Room: [address] [place] [address] Type: ADM IN Attending Dr: Evert Dent [...] Vicky Bonner M.D.12/01/2020 7:40 AM Dictation Location: [place] [address] Transcribed By: [facility] 12/01/2040 Dictated By: Vicky Bonner MD 12/01/20 0739 Signed By: 12/01/20 0740 [facility] ECG 12 lead ECGon 11-30-2020 ECG 12 lead ECG [facility] [address] Electrocardiograph Report Signed Patient: Michael Barahona MR#: [id number] 425 : 1940 Acct:[id number] Age/Sex: 79 / M ADM Date: 12/01/20 Loc: Room: [address] [place] [address] Type: DIS INOo Attending Dr: Evert Dent [...] By: MUS Dictated By: Brenna Rowland DO 11/30/20 173 Signed By: 12/02/20 08 [facility] Vital Signs Date Time Vital Sign Value Performing Clinician Faci lity 11-19-2022 11:29-0400 Blood Pressure Location Bigg DNUCAN [facility] 11-19-2022 11:29-0400 Diastolic blood pressure 77 mm[Hg] Bigg DUNCAN [facility] 11-19-2022 11:29-0400 Heart rate 69 /min Bigg DUNCAN [facility] 11-19-2022 11:29-0400 Respiratory rate 16 /min Bigg DUNCAN [facility] 11-19-2022 11:29-0400 Systolic blood pressure 119 mm[Hg] Bigg DUNCAN [facility] Encounters Encounter Date Encounter Type Care Provider Facility Start: 11-21-2023 ambulatory Bigg DUNCAN Facili ty:[facility] Start: 09-05-2023 End: 09-05-2023 ambulatory [facility] Start: 08-09-2023 End: 08-11-2023 Emergency department patient visit [facility] Start: 08-09-2023 End: 08-10-2023 ambulatory [facility] Start: 08-02-2023 End: 08-03-2023 ambulatory [facility] Start: 08-01-2023 Telephone encounter Shanti Liu RN [facility] Start: 11-19-2022 End: 11-20-2022 ambulatory Bigg DUNCAN Facility:[facility] Start: 11-19-2022 End: 11-19-2022 Patient encounter procedure Bigg DUNCAN [facility] Start: 12-31-2021 End: 01-15-2022 ambulatory MARZENA MCCORD Facility: Start: 11-16-2021 End: 11-16-2021 Patient encounter procedure Bigg DUNCAN [facility] Start: 11-03-2021 End: 11-04-[address] ALEXEY MICHELLE Facility:[facility] Start: 10-21-2021 End: 10-22-[address] FERNANDO GILLESPIE Facility:[facility] Start: 10-20-2021 End: 10-21-[address] BIGG DUNCAN Facility:[facility] Start: 01-03-2017 End: 01-04-2017 Ambulatory DEFAULT PHYSICIAN Facility:[facility] Procedures Date Procedure Procedure Detail Performing Clinician Start: 09-05-2023 Follow-up visit Follow-up EDWIGE DELANEY Start: 10-20-[address] ALEXEY MICHELLE Comment on above: Performed By: #### PSAD #### [facility] [address] [place] [address] Dr. Vannessa Quiroga Start: 01-08-2020 Cystoscopy Bigg DUNCAN Start: 10-14-2016 Brachytherapy Bigg DUNCAN Start: 06-29-2016 Transrectal biopsy of prostate using ultrasound guidance Bigg DUNCAN Colonoscopy Bigg DUNCAN Cystoscopy Bigg DUNCAN Esophagogastroduodenoscopy P marcy DUNCAN Laser assisted in si tu keratomileusis Bigg DUNCAN Repair of musculoten dinous cuff of shoulder Bigg DUNCAN Repair of spleen Bigg ABBASI ERS Total orchidectomy Bigg CAPONE Transrectal biopsy o f prostate using ultrasound guidance Bigg DUNCAN Transurethral prostatectomy Bigg DUNCAN Plan of Treatment Date Care Activity Detail Author Start: 04-04-2024 Adult BMI Screening Adult BMI Screening [facility] Start: 04-04-2024 Tobacco Screening Tobacco Screening [facility] Start: 10-17-2023 End: 10-17-2023 Patient encounter procedure 10/17/2023 2:30 PM EDT Office Visit [facility] [address] [address] Edwige Delaney MD [address] [facility] [place] [address] [facility] Start: 04-06-2023 COVID-19 Vaccine ( season) COVID-19 Vaccine ( season) [facility] Start: 12-16-2003 Fall Risk Screening Fall Risk Screening [facility] Start: 1957 Administration of varicella zoster vaccine Zoster (Shingles) Vaccine (1 of 2) [facility] Start: 1957 DTaP,Tdap and Td Vaccines (1 - Tdap) DTaP,Tdap and Td Vaccines (1 - Tdap) [facility] Start: 1956 Adult BMI Follow Up Plan Adult BMI Follow Up Plan [facility] Start: 1950 Depression Screening Depression Screening [facility] Start: 1938 Medicare Annual Wellness Visit Medicare Annual Wellness Visit [facility] Payers Date Payer Category Payer Medicare ANTHEM MEDICARE AN[employer]M MEDICARE ADVANTAGE [id number] 2016-Present [phone] [address] [place] [address] [id number] 1959 Unknown [id number] 1940 Unknown [id number] 1940 Unknown [id number] 1938 Unknown [id number] 1938 Unknown [id number] 1938 Unknown [id number] 1938 Unknown [id number] 1938 Unknown [id number] 1940 Unknown [id number] 1940 Unknown [id number] 1940 Unknown [id number] Unknown Social History Date Type Detail Facility Start: 01-08-2020 End: 03-01-2022 Tobacco smoking status Ex-smoker (finding) [facility] Start: 06-19-2020 End: 04-04-2023 Sex Assigned At Male [facility] History of tobacco use Current smoker [facility] Start: 03-01-2022 Tobacco use and exposure Smokeless tobacco non-user [facility] Start: 04-04-2023 Alcohol intake Current non-dr object oriented developer of alcohol (finding[facility] Start: 06-19-2020 End: 04-04-2023 Alcohol intake [facility] Childcare Unknown [facility] Start: 1940 Sex Assigned At Not on file [facility] Functional Status Date Assessment Result Facility 11-19-2022 Functional Status N/A [facility] 11-16-2021 Functional Status N/A [facility] Note 08-01-2023 Telephone Encounter - Shanti Liu RN - 08/01/2023 11:44 AM EDT Note Date & Type Note Facility 08-01-2023 Miscellaneous Notes Formattin g of this note might be different from the original. Pt Angie left message, returned call left message documented in this encounter [facility] Telephone encounter Note 08-01-2023 Telephone Encounter - Shanti Liu RN - 08/01/2023 11:44 AM EDT Note Date & Type Note Facility 08-01-2023 Telephone encount er Note Pt Angie left message, returned call left message [facility] Discharge instructions 11-19-2022 Note Date & [...] urethra. Follow these instructions at home: Take sfxa-jdj-eipksnn and prescription medicines only as told by [...] provider. Document Revised: 11/11/2021 Document Reviewed: 11/11/2021 [employer] Patient Education 2022 [employer]. Follow Up Care 11/16/2021 14:26:07 With:ALOK GARZON, Bigg Isabel, URL Address: [facility] [address], [place] [id number]- When: Unknown [facility] [place] [facility] Discharge instructions 11-16-2021 Note Date & [...] 04/25/2006 Document Revised: 01/12/2019 Document Reviewed: 03/25/2017 [employer] Patient Education 2020 [employer]. 11/16/2021 14:13:15 Benign Prostatic Hyperplasia Benign Prostatic [...] urethra. Follow these instructions at home: Take alpa-gjd-rxsycbi and prescription medicines only as told by [...] 04/25/2006 Document Revised: 03/20/2019 Document Reviewed: 05/30/2017 [employer] Patient Education 2020 [employer]. Follow Up Care 11/03/2020 12:25:53 With:ALOK GARZON, RAYMUNDO Cortez Address: [facility] [address] , [place] [phone] When:Within 1 Year(s) Comments:1 year fu w PSA [facility] Evaluation + Plan note Note Date & Type Note Facility Evaluation + Plan note Future Appointments Appointment Date:11/19/2022 11:00:00 AM Scheduled Provider:Bigg DUNCAN MD Location:[facility] Appointment Type:URO Office Visit Diagnostic Tests PendingPSA Total 11/16/21PSA Total 11/16/21 [facility] Evaluation + Plan note Note Date & Type Note Facility Evaluation + Plan note Future Appointments Appointment Date:11/21/2023 09:45:00 AM Scheduled Provider:Bigg DUNCAN MD Location:[facility] Appointment Type:URO Office Visit Diagnostic Tests PendingPSA Total 10/08/23 [facility] Hospital course Narrative Note Date & Type Note Facility Hospital course Narrative No data available for this section [facility] Instructions Note Date & Type Note Facility Instructions Not on filedocumented in this en counter [facility] note Note Date & Type Note Facility Progress note No data available for this section [facility] Summary Purpose Family History No Family History [...] section and content) DATE CREATED AUTHOR 11/02/2017 [facility] DATE CREATED AUTHOR AUTHOR'S ORGANIZ ATION 05/31/2021 [facility] DATE CREATED AUTHOR AUTHOR'S ORGANIZ ATION 04/30/2022 [facility] [place] [facility] DATE CREATED AUTHOR AUTHOR'S ORGANIZ ATION [facility]2022 [facility] DATE CREATED AUTHOR AUTHOR'S ORGANIZ ATION 08/12/2023 [facility] DATE CREATED AUTHOR AUTHOR'S ORGANIZ ATION 09/06/2023 [facility] Team (unrecognized sect ion and content) Lab Technologist Relationship Specialty Start Date End Date Marzena Mccord, INFECTIOUS DISEASE TECHNICIAN-COOKING INSTRUCTOR [address] [facility] [place] [address] PCP - General Family Medicine 07/18/18 FOR RECORDS PERTAINING TO PATIENTS WHO ARE [...] BE BASED ON THE PRIMARY CLINICAL RECORDS. [employer] provides no warranty or guarantee of the accuracy or completeness of information in this document.
--- NOTE | 2023-09-21 11:15 | P.CN_ITS ---
Consult Note: HPI Data of Consult Patient: known to practice within the last 3 years Requesting Physician: Shannon Bradford NP Primary Care Provider: FRANKLYN MCCORD Consult Narrative Reason for consult: f/u Narrative: Dank Barahona a pleasant 82 year old male presents for evaluation and management of low back pain and numbness to bilateral legs/feet. Patient finding benefit to gabapentin 100mg daily, could not tolerate a higher dose. Prior EMG NCV confirmed mild chronic change so S1. Since last visit patient now utilizing home oxygen and has upcoming EKG, echocardiogram, and abdominal ultrasound. Pain today 3-4/10 in low back increasing pain and weakness in bilateral legs with twisting lifting bending activity walking, improved with sleep and lying down. Patient reports pain increases to 9/10 at its worst, denies loss of bowel/bladders, denies falls. Utilizing a walker. Prior l5-s1 JESUS provided >80% improvement greater than 3 months, patient would like to discuss repeating. cc:: CC: Shannon Bradford NP Review of Systems ROS Status of ROS 10 or more systems reviewed and unremark able except as noted in history and below Musculoskeletal Reports: back pain and muscle weakness Meds Home Medications and Allergies Home Medications ?Medication ?Instructions ?Recorded ?Confirmed ?Type albuterol sulfate 90 mcg/actuation 1 puff inhalation Q4H PRN 01/14/23 03/15/23 History aerosol inhaler shortness of breath or wheezing budesonide 160 mcg-glycopyr 9 2 inh inhalation BID 01/14/23 03/15/23 History mcg-formot 4.8 mcg/actuation HFA inhaler (Breztri Aerosphere) levothyroxine 50 mcg tablet 50 mcg PO DAILY 01/14/23 03/15/23 History prednisone 5 mg tablet 5 mg PO DAILY 01/14/23 03/15/23 History tamsulosin 0.4 mg capsule 0.4 mg PO BID 01/14/23 03/15/23 History vit C 250 mg-vit E 90 mg-zinc 40 1 tab PO BID 01/14/23 03/15/23 History mg-copper 1 [id number]-hgsqnj capsule (PreserVision AREDS-2) zonisamide 50 mg capsule 150 mg PO .HS 01/14/23 03/15/23 History gabapentin 100 mg capsule 100 mg PO DAILY #90 caps 03/04/24 Rx Allergies Allergy/AdvReac Type Severity Reaction Status Date / Time No Known Drug Allergies Allergy Verified 01/25/23 12:57 Exam Constitutional Documenting provider has reviewed patient's vital signs: yes Common normals: no apparent distress, oriented x3, healthy appearing, alert and well nourished General appearance: cooperative HENMT Common normals: normocephalic, hearing grossly normal bilaterally and moist oral mucous membranes Head and scalp: normocephalic Eye Common normals: PERRL Pupil: PERRL Neck & C-Spine Common normals: full ROM General: normal visual inspection Chest Common normals: inspection of chest normal Respiratory Common normals: normal respiratory effort, no retractions and no use of accessory muscles Back & Pelvis Lumbar spine/lower back: ROM limited, pain with ROM and straight leg raise negative bilaterally Extremity Other: numbness tingling bilateral feet and calves no edema, discoloration. pulses equal and strong decreased sensation to touch bilaterally following S1 pattern strength 4/5 in BLE Neuro Common normals: oriented x3, CN's II-XII intact bilaterally, moves all extremities, no focal motor deficits, no sensory deficits noted and deep tendon reflexes 2+ bilaterally Sensorium/orientation: alert Gait (neuro): antalgic Motor exam: no movement abnormalities noted and strength abnormal Psych Common normals: mental status grossly normal, thought process normal, cooperative, affect normal, speech normal and activity/motor behavior normal Speech: normal speech Thought process: normal thought process Assessment and Plan Assessment and Plan (1) Lumbar radiculopathy: (2) Lumbar stenosis with neurogenic claudication: (3) Neuropathy: (4) Lumbar spondylosis: Plan repeat L5-S1 JESUS under fluoroscopy. risks vs benefits discussed. prior JESUS provided >80% improvement in pain and functional ability greater than 3 months continue gabapentin 100 daily, max tolerated doses f/u 2 weeks after JESUS
== END 2023-09-21 10:38 | disposition home or self-care (01) ==
LOC: PM 10:37
PROVIDERS: PCP Nurse Practitioner Family; Visit Provider Nurse Practitioner
DX: M54.16 Radiculopathy, lumbar region (principal); M48.062 Spinal stenosis, lumbar region with neurogenic claudication; G62.9 Polyneuropathy, unspecified; M47.816 Spondylosis without myelopathy or radiculopathy, lumbar region
CPT/HCPCS: G0463

== ENCOUNTER 2023-09-27 09:50 | Day surgery (SDC) | payer MEDICARE, SELFPAY ==
[2023-09-27 10:13] VITALS: BP 149/82; PULSE 90; TEMP 37; O2SAT 95
[2023-09-27 11:17] VITALS: BP 142/63; PULSE 95; O2SAT 97
[2023-09-27 11:19] VITALS: BP 145/65; PULSE 92; O2SAT 97
[2023-09-27] MEDS: IOHEXOL 240 MG/ML - 10 ML VIAL 24 MG INJ (11:23)
[2023-09-27] MEDS: 0.9 % SODIUM CHLORIDE 10 ML SYRINGE - SALINE FLUSH 2 ML INJ (11:23)
[2023-09-27] MEDS: BUPIVACAINE HCL 0.25% PF 25 MG/10 ML VIAL 2 ML INJ (11:23)
--- NOTE | 2023-09-27 11:23 | P.ON_ITS ---
Date of procedure: 09/27/23 Pre-op diagnosis: Lumbar radiculopathy Post-op diagnosis: same as pre-op Procedure: Lumbar 5/sacral 1 Epidural Steroid Injection Under fluoroscopic guidance Immediate complications none Solution used for injection: Marcaine 0.25% 2mL, 2cc Normal saline, Depo-Medrol 80mg Omnipaque 3 mL Anesthesia local 2% lidocaine up to 4ml Timeout process compliant After informed consent obtained. Patient brought to the procedure room placed in the prone position. Skin overlying the area was prepped and draped in a sterile fashion using betadine. 25 gauge needle used to raise a skin wheel with local anesthetic over the target area identified under fluoroscopy. A 17 gauge Touhy needle Was inserted over the anesthetized area and directed towards the inter- space under fluoroscopic guidance. Epidural space was identified with loss of resistance technique to air. Needle Tip placement confirmed with injection of contrast solution. Steroid solution was then injected. Anesthesia: Local Surgeon: Blaise Acuna Condition: stable
[2023-09-27] MEDS: LIDOCAINE HCL 2% PF 100 MG/5 ML VIAL 3 ML INJ (11:24)
[2023-09-27] MEDS: METHYLPREDNISOLONE ACETATE 80 MG/ML VIAL INJ (11:24)
== END 2023-09-27 11:26 | disposition home or self-care (01) ==
LOC: SURGOUT 09:51
PROVIDERS: PCP Nurse Practitioner Family; Visit Provider Anesthesiology Pain Medicine
DX: M54.16 Radiculopathy, lumbar region (principal)
CPT/HCPCS: 62323; J1010; Q9966

== ENCOUNTER 2023-10-06 13:36 | Outpatient (OUT) | payer MEDICARE, SELFPAY ==
--- NOTE | 2023-10-06 13:48 | PM.CN ---
Consult Note: HPI Data of Consult Patient: known to practice within the last 3 years Requesting Physician: Shannon Bradford NP Primary Care Provider: FRANKLYN MCCORD Consult Narrative Reason for consult: f/u Narrative: Dank Barahona a pleasant 82 year old male presents for evaluation and management of low back pain and numbness to bilateral legs/feet. Patient finding benefit to gabapentin 100mg daily, could not tolerate a higher dose. Prior EMG NCV confirmed mild chronic change so S1. Pain today 2/10 in low back increasing pain and weakness in bilateral legs with twisting lifting bending activity walking, improved with sleep and lying down. Patient reports pain increases to 9/10 at its worst, denies loss of bowel/bladders, denies falls. Utilizing a walker. Recently underwent repeat L5-S1 JESUS with moderate improvement ongoing. cc:: CC: Shannon Bradford NP Review of Systems ROS Status of ROS 10 or more systems reviewed and unremarkable except as noted in history and below Musculoskeletal Reports: back pain Meds Home Medications and Allergies Home Medications ?Medication ?Instructions ?Recorded ?Confirmed ?Type albuterol sulfate 90 mcg/actuation 1 puff inhalation Q4H PRN 01/14/23 09/27/23 History aerosol inhaler shortness of breath or wheezing budesonide 160 mcg-glycopyr 9 2 inh inhalation BID 01/14/23 09/27/23 History mcg-formot 4.8 mcg/actuation HFA inhaler (Breztri Aerosphere) levothyroxine 50 mcg tablet 50 mcg PO DAILY 01/14/23 09/27/23 History prednisone 5 mg tablet 5 mg PO DAILY 01/14/23 09/27/23 History tamsulosin 0.4 mg capsule 0.4 mg PO BID 01/14/23 09/27/23 History vit C 250 mg-vit E 90 mg-zinc 40 1 tab PO BID 01/14/23 09/27/23 History mg-copper 1 ne-ijwkmz-raxsru capsule (PreserVision AREDS-2) gabapentin 100 mg capsule 100 mg PO DAILY #90 caps 07/11/23 09/27/23 Rx Allergies Allergy/AdvReac Type Severity Reaction Status Date / Time No Known Drug Allergies Allergy Verified 09/27/23 10:21 Exam Constitutional Documenting provider has reviewed patient's vital signs: yes Common normals: no apparent distress, oriented x3, healthy appearing, alert and well nourished General appearance: cooperative [facility] Common normals: normocephalic, hearing grossly normal bilaterally and moist oral mucous membranes Head and scalp: normocephalic Eye Common normals: PERRL Pupil: PERRL Neck & C-Spine Common normals: full ROM General: normal visual inspection Chest Common normals: inspection of chest normal Respiratory Common normals: normal respiratory effort, no retractions and no use of accessory muscles Back & Pelvis Lumbar spine/lower back: ROM limited, pain with ROM and straight leg raise negative bilaterally Sacroiliac joints: SI joints normal Extremity Other: numbness tingling bilateral feet and calves no edema, discoloration. pulses equal and strong decreased sensation to touch bilaterally following S1 pattern strength 4/5 in BLE Neuro Common normals: oriented x3, CN's II-XII intact bilaterally, moves all extremities, no focal motor deficits, no sensory deficits noted and deep tendon reflexes 2+ bilaterally Sensorium/orientation: alert Gait (neuro): antalgic Motor exam: no movement abnormalities noted and strength abnormal Psych Common normals: mental status grossly normal, thought process normal, cooperative, affect normal, speech normal and activity/motor behavior normal Speech: normal speech Thought process: normal thought process Assessment and Plan Assessment and Plan (1) Lumbar radiculopathy: (2) Lumbar stenosis with neurogenic claudication: (3) Neuropathy: (4) Lumbar spondylosis: Plan patient would like to try gabapentin 100mg BID, will call if he experiences side effects f/u 3 months, sooner if needed
--- OUTSIDE RECORDS SUMMARY | 2023-10-06 13:53 | XMS_ITS | CCD ---
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 [facility] Comment on above: Performed By: #### B MP, CKMB, HS TROP, CK, CBCNO #### [address] WBC (Bld) [#/Vol] 5.8 10*3/uL Normal 4.1-10.5 [facility] Comment on above: Performed By: #### B MP, CKMB, HS TROP, CK, CBCNO #### [address] Troponin I High Sensitivityo n 12-01-2020 Troponin I High Sensitivity 3 pg/mL Normal 0-20 [facility] Comment on above: Result Comment: PERF ORMED BY: [place] [address] PATHOLOGIST PRODUCTION ASSISTANT GUILHERME BRADFORD M.D. Performed By: #### B MP, CKMB, HS TROP, CK, CBCNO #### [address] Troponin I High Sensitivity 4 pg/mL Normal 0-20 [facility] Comment on above: Result Comment: PERF ORMED BY: [place] [address] PATHOLOGIST PRODUCTION ASSISTANT GUILHERME BRADFORD M.D. Performed By: #### C MP, BNP, CBC, HS TROP #### [place] [id number] [place] XR chest 1V portableon 12-01 XR chest 1V portable [facility] [place] [address] XRay Report Signed Patient: Michael Barahona MR#: [id number] 425 : 1940 Acct:[id number] Age/Sex: 79 / M ADM Date: 12/01/20 Loc: Room: [address] [place] [address] Type: ADM IN Attending Dr: Evert Dent [...] Vicky Bonner M.D.12/01/2020 7:40 AM Dictation Location: [place] [address] Transcribed By: [facility] 12/01/2040 Dictated By: Vicky Bonner MD 12/01/20 0739 Signed By: 12/01/20 0740 Normal [facility] ECG 12 lead ECGon 11-30-2020 ECG 12 lead ECG [facility] [place] [id number] Electrocardiograph Report Signed Patient: Michael Barahona MR#: [id number] 425 : 1940 Acct:[id number] Age/Sex: 79 / M ADM Date: 12/01/20 Loc: 4N Room: [address] [place] [address] Type: DIS INOo Attending Dr: Evert Dent [...] Rowland DO 11/30/20 173 Signed By: 12/02/20 0800 [facility] Vital Signs Date Time Vital Sign Value Performing Clinician Sarah sanchez 11-19-2022 11:29-0400 Blood Pressure Location Bigg DUNCAN [facility] 11-19-2022 11:29-0400 Diastolic blood pressure 77 mm[Hg] Bigg DUNCAN [facility] 11-19-2022 11:29-0400 Heart rate 69 /min Bigg DUNCAN [facility] 11-19-2022 11:29-0400 Respiratory rate 16 /min Bigg DUNCAN [facility] 11-19-2022 11:29-0400 Systolic blood pressure 119 mm[Hg] Bigg DUNCAN [facility] Encounters Encounter Date Encounter Type Care Provider Facility Start: 11-21-2023 ambulatory Bigg Payne ty:[facility] Start: 09-29-2023 End: 09-30-2023 ambulatory EDWIGE Dwight ELAINA [facility] Start: 09-26-2023 End: 09-27-2023 ambulatory EDWIGE Dwight ELAINA [facility] Start: 09-05-2023 End: 09-05-2023 ambulatory EDWIGE DELANEY [facility] Start: 08-09-2023 End: 08-11-2023 Emergency department patient visit ANTHON[facility] Start: 08-09-2023 End: 08-10-2023 ambulatory MARZENA MCCORD [facility] Start: 08-02-2023 End: 08-03-2023 ambulatory EDWIGE DELANEY [facility] Start: 08-01-2023 Telephone encounter Shanti Liu RN [facility] Start: 11-19-2022 End: 11-20-2022 ambulatory Bigg DUNCAN Facility:[facility] Start: 11-19-2022 End: 11-19-2022 Patient encounter procedure Bigg DUNCAN [facility] Start: 12-31-2021 End: 01-15-2022 ambulatory MARZENA MCCORD Facility:[facility] Start: 11-16-2021 End: 11-16-2021 Patient encounter procedure Bigg DUNCAN [facility] Start: 11-03-2021 End: 11-04-[address] ALEXEY MICHELLE Facility:[facility] Start: 10-21-2021 End: 10-22-[address] FERNANDO GILLESPIE Facility:[facility] Start: 10-20-2021 End: 10-21-[address] BIGG DUNCAN Facility:[facility] Start: 01-03-2017 End: 01-04-2017 Ambulatory DEFAULT PHYSICIAN Facility:[facility] Procedures Date Procedure Procedure Detail Performing Clinician Start: 09-05-2023 Follow-up visit Follow-up EDWIGE DELANEY Start: 10-20-[address] ALEXEY MICHELLE Comment on above: Performed By: #### PSAD #### [facility] [address] [place] [address] [address] Vannessa Quiroga Start: 01-08-2020 Cystoscopy Bigg DUNCAN Start: 10-14-2016 Brachytherapy Bigg DUNCAN Start: 06-29-2016 Transrectal biopsy of prostate using ultrasound guidance Bigg DUNCAN Colonoscopy Bigg DUNCAN Cystoscopy Bigg DUNCAN Esophagogastroduodenoscopy P marcy DUNCAN Laser assisted in si tu keratomileusis Bigg DUNCAN Repair of musculoten dinous cuff of shoulder Bigg DUNCAN Repair of spleen Bigg ELROY ECHEVERRIA Total orchidectomy Bigg Shweta CAPONE Transrectal biopsy o f prostate using ultrasound guidance Bigg DUNCAN Transurethral prostatectomy Bigg DUNCAN Plan of Treatment Date Care Activity Detail Author Start: 04-04-2024 Adult BMI Screening Adult BMI Screening [facility] Start: 04-04-2024 Tobacco Screening Tobacco Screening [facility] Start: 10-17-2023 End: 10-17-2023 Patient encounter procedure 10/17/2023 2:30 PM EDT Office Visit [facility] [address] [place] [address] Edwige Delaney MD [address] [address] [facility] Start: 04-06-2023 COVID-19 Vaccine ( season) COVID-19 Vaccine ( season) [facility] Start: 12-16-2003 Fall Risk Screening Fall Risk Screening [facility] Start: 1957 Administration of varicella zoster vaccine Zoster (Shingles) Vaccine (1 of 2) [facility] Start: 1957 DTaP,Tdap and Td Vaccines (1 - Tdap) DTaP,Tdap and Td Vaccines (1 - Tdap) [facility] Start: 1956 Adult BMI Follow Up Plan Adult BMI Follow Up Plan [facility] [employer] Start: 1950 Depression Screening Depression Screening [facility] Start: 1938 Medicare Annual Wellness Visit Medicare Annual Wellness Visit [facility] Payers Date Payer Category Payer Medicare ANTHEM MEDICARE ANTHEM MEDICARE ADVANTAGE [id number] 2016-Present [phone] [address] [place] [address] [id number] 1959 Unknown [id number] 1940 Unknown [id number] 1940 Unknown [id number] 1938 Unknown [id number] [id number] 1938 Unknown [id number] 1938 Unknown [id number] [id number] 1938 Unknown [id number] [id number] 1938 Unknown [id number] [id number] 6 1940 Unknown [id number] [id number] 6 1938 Unknown [id number] [id number] 6 1938 Unknown [id number] 2.16.840.1.328973.3.579.2.128 6 1938 Unknown [id number] [id number] 6 1938 Unknown [id number] [id number] 6 1940 Unknown [id number] [id number] 6 Unknown Social History Date Type Detail Facility Start: 01-08-2020 End: 03-01-2022 Tobacco smoking status Ex-smoker (finding) [facility] Start: 06-19-2020 End: 04-04-2023 Sex Assigned At Male [facility] History of tobacco use Current smoker [facility] Start: 03-01-2022 Tobacco use and exposure Smokeless tobacco non-user [facility] Start: 04-04-2023 Alcohol intake Current non-dr administrative fellow of alcohol (finding) [facility] Start: 06-19-2020 End: 04-04-2023 Alcohol intake [facility] Childcare Unknown [facility] Start: 1940 Sex Assigned At Not on file [facility] Functional Status Date Assessment Result Facility 11-19-2022 Functional Status N/A [facility] 11-16-2021 Functional Status N/A [facility] Note 08-01-2023 Telephone Encounter - Shanti Liu RN - 08/01/2023 11:44 AM EDT Note Date & Type Note Facility 08-01-2023 Miscellaneous Notes Formattin g of this note might be different from the original. Pt Angie left message, returned call left message documented in this encounter [facility] Telephone encounter Note 08-01-2023 Telephone Encounter - Shanti Liu RN - 08/01/2023 11:44 AM EDT Note Date & Type Note Facility 08-01-2023 Telephone encount er Note Pt Angie left message, returned call left message [facility] Hospital Discharge instructions 11-19-2022 Note Date & [...] urethra. Follow these instructions at home: Take mnam-ebs-brbkgua and prescription medicines only as told by [...] provider. Document Revised: 11/11/2021 Document Reviewed: 11/11/2021 [employer] Patient Education 2022 [employer] Follow Up Care 11/16/2021 14:26:07 With:ALOK GARZON, Bigg Isabel, URL Address: [facility] [address] , [place] [address]- When: Unknown [facility] Hospital Discharge instructions 11-16-2021 Note Date [...] 04/25/2006 Document Revised: 01/12/2019 Document Reviewed: 03/25/2017 [employer] Patient Education 2020 [employer]. 11/16/2021 14:13:15 Benign Prostatic Hyperplasia Benign Prostatic [...] urethra. Follow these instructions at home: Take cter-axd-jhpxssy and prescription medicines only as told by [...] 04/25/2006 Document Revised: 03/20/2019 Document Reviewed: 05/30/2017 [employer] Patient Education 2020 [employer] Follow Up Care 11/03/2020 12:25:53 With:ALOK GARZON, Bigg Isabel, SILVIOL Address: [facility] [address], [place] [phone] When:Within 1 Year(s) Comments:1 year fu w PSA [facility] Evaluation + Plan note Note Date & Type Note Facility Evaluation + Plan note Future Appointments Appointment Date:11/19/2022 11:00:00 AM Scheduled Provider:Bigg DUNCAN MD Location:[facility] Appointment Type:URO Office Visit Diagnostic Tests PendingPSA Total 11/16/21PSA Total 11/16/[address] [facility] Evaluation + Plan note Note Date & Type Note Facility Evaluation + Plan note Future Appointments Appointment Date:11/21/2023 09:45:00 AM Scheduled Provider:Bigg DUNCAN MD Location:[facility] Appointment Type:URO Office Visit Diagnostic Tests PendingPSA Total 10/08/[address] [facility] Hospital course Narrative Note Date & Type Note Facility Hospital course Narrative No data available for this section [facility] Instructions Note Date & Type Note Facility Instructions Not on filedocumented in this en counter [facility] Progress note Note Date & Type Note Facility Progress note No data available for this section [facility] Summary Purpose Family History No Family History [...] section and content) DATE CREATED AUTHOR 11/02/2017 [facility] DATE CREATED AUTHOR AUTHOR'S ORGANIZ ATION 05/31/2021 [facility] DATE CREATED AUTHOR AUTHOR'S ORGANIZ ATION 04/30/2022 [facility] DATE CREATED AUTHOR AUTHOR'S ORGANIZ ATION 11/23/2022 [facility] DATE CREATED AUTHOR AUTHOR'S ORGANIZ ATION 09/06/2023 [facility] DATE CREATED AUTHOR AUTHOR'S ORGANIZ ATION 10/01/2023 [facility] Care Team (unrecognized sect ion and content) 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 [employer] [facility]. provides no warranty or guarantee of the accuracy or completeness of information in this document.
== END 2023-10-06 13:37 | disposition home or self-care (01) ==
LOC: PM 13:37
PROVIDERS: PCP Nurse Practitioner Family; Visit Provider Nurse Practitioner
DX: M54.16 Radiculopathy, lumbar region (principal); M48.062 Spinal stenosis, lumbar region with neurogenic claudication; G62.9 Polyneuropathy, unspecified; M47.816 Spondylosis without myelopathy or radiculopathy, lumbar region
CPT/HCPCS: G0463

== ENCOUNTER 2023-11-17 14:20 | Outpatient (OUT) | payer MEDICARE, SELFPAY ==
[2023-11-17 16:13] LABS: Prostate Specific Antigen Dx <0.13 ng/mL (<=4.00)
== END 2023-11-17 14:21 | disposition home or self-care (01) ==
LOC: LAB 14:21
PROVIDERS: PCP Nurse Practitioner Family; Visit Provider Urology
DX: Z85.46 Personal history of malignant neoplasm of prostate (principal)
CPT/HCPCS: 36415; 84153

== ENCOUNTER 2023-12-26 13:35 | Outpatient (OUT) | payer MEDICARE, SELFPAY ==
[2023-12-26 14:16] LABS: Ammonia 15 umol/L (11-32)
[2023-12-26 16:00] LABS: Alanine Aminotransferase 29 U/L (16-63); Albumin Globulin Ratio 1.2; Albumin Level 3.7 g/dL (3.4-5.0); Alkaline Phosphatase 49 U/L (46-116); Anion Gap 10.7; Aspartate Amino Transferase 15 U/L (15-37); BUN Creatinine Ratio 17.6; Bilirubin Total 0.6 mg/dL (0.2-1.0); Calcium 9.2 mg/dL (8.5-10.1); Carbon Dioxide 27.6 mmol/L (21.0-32.0); Chloride 101 mmol/L (98-107); Estimated GFR (African America >60 (>=60); Estimated GFR (Non-African Ame >60 (>=60); Globulin 3.2 g/dL; Glucose 98 mg/dL (74-106); Potassium 4.3 mmol/L (3.5-5.1); Sodium 135 mmol/L (136-145); Total Protein 6.9 g/dL (6.4-8.2)
== END 2023-12-26 13:36 | disposition home or self-care (01) ==
LOC: LAB 13:36
PROVIDERS: PCP Nurse Practitioner Family; Visit Provider Nurse Practitioner Family
DX: I10 Essential (primary) hypertension (principal)
CPT/HCPCS: 36415; 80053; 82140

== ENCOUNTER 2024-01-05 13:14 | Outpatient (OUT) | payer MEDICARE, SELFPAY ==
--- NOTE | 2024-01-05 14:01 | P.CN_ITS ---
Consult Note: HPI Data of Consult Patient: known to practice within the last 3 years Requesting Physician: Shannon Bradford NP Primary Care Provider: FRANKLYN MCCORD Consult Narrative Reason for consult: f/u Narrative: Dank Barahona a pleasant 83 year old male presents for evaluation and management of low back pain and numbness to bilateral legs/feet. Patient finding no benefit to gabapentin 100mg daily, could not tolerate a higher dose. Prior EMG NCV confirmed mild chronic change to S1. Pain today 6/10 in low back increasing pain and weakness in bilateral legs with twisting lifting bending activity walking, improved with sleep and lying down. Patient reports pain increases to 9/10 at its worst, denies loss of bowel/bladders, denies falls. Utilizing a walker. Patient does not feel his last JESUS was helpful and would like to discuss alternative treatment options. cc:: CC: Shannon Bradford NP Review of Systems ROS Status of ROS 10 or more systems reviewed and unremark able except as noted in history and below Musculoskeletal Reports: back pain, extremity pain and muscle weakness Meds Home Medications and Allergies Home Medications ?Medication ?Instructions ?Recorded ?Confirmed ?Type albuterol sulfate 90 mcg/actuation 1 puff inhalation Q4H PRN 01/14/23 09/27/23 History aerosol inhaler shortness of breath or wheezing budesonide 160 mcg-glycopyr 9 2 inh inhalation BID 01/14/23 09/27/23 History mcg-formot 4.8 mcg/actuation HFA inhaler (Breztri Aerosphere) levothyroxine 50 mcg tablet 50 mcg PO DAILY 01/14/23 09/27/23 History prednisone 5 mg tablet 5 mg PO DAILY 01/14/23 09/27/23 History tamsulosin 0.4 mg capsule 0.4 mg PO BID 01/14/23 09/27/23 History vit C 250 mg-vit E 90 mg-zinc 40 1 tab PO BID 01/14/23 09/27/23 History mg-copper 1 [id number] capsule (PreserVision AREDS-2) gabapentin 100 mg capsule 100 mg PO DAILY #90 caps 07/11/23 09/27/23 Rx Allergies Allergy/AdvReac Type Severity Reaction Status Date / Time No Known Drug Allergies Allergy Verified 09/27/23 10:21 Exam Constitutional Documenting provider has reviewed patient's vital signs: yes Common normals: no apparent distress, oriented x3, healthy appearing, alert and well nourished General appearance: cooperative HENMT Common normals: normocephalic, hearing grossly normal bilaterally and moist oral mucous membranes Head and scalp: normocephalic Eye Common normals: PERRL Pupil: PERRL Neck & C-Spine Common normals: full ROM General: normal visual inspection Chest Common normals: inspection of chest normal Respiratory Common normals: no retractions and no use of accessory muscles Effort & inspection: not able to speak in complete sentences Back & Pelvis Lumbar spine/lower back: ROM limited, pain with ROM and straight leg raise negative bilaterally Sacroiliac joints: SI joints normal Other: chronic pain following L5/S1 dermatomal pattern numbness tingling to bilateral calves and feet, severe per pt strength 4/5 in BLE Extremity Common normals: normal to inspection and full ROM Neuro Common normals: oriented x3, CN's II-XII intact bilaterally, moves all extremities, no focal motor deficits, no sensory deficits noted and deep tendon reflexes 2+ bilaterally Sensorium/orientation: alert Gait (neuro): antalgic Motor exam: strength 5/5 throughout and no movement abnormalities noted Psych Common normals: mental status grossly normal, thought process normal, cooperative, affect normal, speech normal and activity/motor behavior normal Speech: normal speech Thought process: normal thought process Results Additional Findings Additional findings: If on a controlled substance or opioids, I have checked an [place] report on this patient and there are no aberrancies noted in the prescribing history.??If on a controlled substance or opioid a drug screen was completed and reviewed within the last year, and if there has not been a drug screen completed we ordered one today to monitor higher risk, state monitored pain medication use. As part of providing excellent, safe, comprehensive care, the following was completed at our patient's visit: 1. A medication reconciliation and review to ensure accurate knowledge of current/active medications, including asking our patients to inform us about any [id number] medications or herbal remedies/nutritional supplements/alternative remedies. 2. A review to specifically ensure our patients have had annual screening for screening for depression, screening for tobacco use, and screening for unhealthy alcohol use. For concerning screenings had a discussion with the patient, provided patient education, and recommended follow-up with primary care provider when appropriate. If patient noted with a risk of falling, they received education on strength, gait, and balance training to prevent future risk of falling. Assessment and Plan Assessment and Plan (1) Lumbar radiculopathy: (2) Lumbar spondylosis: Plan Patient expressed interest in surgical intervention for chronic pain, however he does not want back surgery. we discussed trialing a spinal cord stimulator for chronic lumbar radiculopathy unresponsive to greater than 6 weeks of PT, NSAIDs, tylenol, and gabapentin. Patient would like to proceed with spinal cord stimulator trial, risks vs benefits reviewed. We ask that patient complete the psychiatric evaluation and we will request records from PCP from recent visits as patient has a hx of COPD but worsening SOB over the last few months. patient would require PAT prior to IV sedation required to place the spinal cord stimulator trial. handout provided, all questions answered.
== END 2024-01-05 13:15 | disposition home or self-care (01) ==
PROVIDERS: PCP Nurse Practitioner Family; Visit Provider Nurse Practitioner
DX: M54.16 Radiculopathy, lumbar region (principal); M47.816 Spondylosis without myelopathy or radiculopathy, lumbar region
CPT/HCPCS: G0463

== ENCOUNTER 2024-02-10 10:55 | Outpatient (OUT) | payer MEDICARE, SELFPAY ==
--- NOTE | 2024-02-10 | XR_ITS ---
The [address] [address] Patient Name: MICHAEL LITTLE MRN: [id number] date: 1940 Sex: M Assigned Patient Location: Current Patient Location: Accession/Order Number: [id number] Exam Date: 02/10/2024 11:05 Report Date: 02/12/2024 07:21 At the request of: VILLA PRICE Procedure: XR lumbar spine min 4V EXAMINATION: XR lumbar spine min 4V HISTORY: LUMBAR SPINE PAIN COMPARISON: XR L-spine 11/03/2021 FINDINGS: BONES: 21 mm anterior listhesis of L5 on S1 secondary to bilateral pars interarticularis defects. Mild degenerative facet arthropathy L3-L4, L4-L5. Mild bone encroachment on the neural foramen L2-L3 through L5-S1. Normal height and alignment of the remaining lumbar vertebral bodies. Multilevel prominent anterior endplate osteophytes. DISC SPACES: Moderate narrowing L5-S1. Normal height at remaining levels. PARASPINOUS: Negative. No paraspinous abnormality is seen. OTHER: Negative. XR/XR lumbar spine min 4V IMPRESSION: 1. 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 2. Multilevel mild degenerative changes. Electronically authenticated by: JULI OWUSU Date: 02/12/2024 07:21
--- OUTSIDE RECORDS SUMMARY | 2024-02-10 11:07 | XMS_ITS | CCD ---
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 disease. 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 Approved by Resident Miki Gray MD on 10/31/2023 10:44 AM Calos Hubbard MD have personally reviewed the image(s) and agree with and/or edited the report Finalized by Calos Amaya MD on 10/31/2023 11:13 AM Normal [facility] US ABDOMEN LMTDon 10-01-2023 US ABDOMEN LMTD [...] Reilly MD on 10/01/2023 8:35 AM Normal [facility] CBC AND AUTO DIFFon 08-10-19 ABSOLUTE BASOPHIL 0.0 X10E9/L Normal 0.0-0.2 [facility] Comment on above: Performed By: #### C BILLIE [facility], 90634-5 ####[facility] ([id number])[address] [place] [address] 98112 ABSOLUTE NEUTROPHIL 9.7 X10E9/L High 1.5-6.6 [facility] Comment on above: Performed By: #### C BUDDY WISE, 78589-9 ####[facility] ([id number])[address] [place] [address] 46635 Basophils/100 WBC (Bld) 0.2 % Normal [facility] Comment on above: Performed By: #### C BILLIE [facility], 74552-9 ####[facility] ([id number])[address] [place] [address] 80779 Eosinophils (Bld) [#/Vol] 0.0 10*3/uL Normal 0.0-0.4 [facility] Comment on above: Performed By: #### C BUDDY WISE, ####[facility] ([id number])[address] [place] [address] 69198 Eosinophils/100 WBC (Bld) 0.0 % Normal [facility] Comment on above: Performed By: #### Sarah WISE CMP, ####[facility] ([id number])[address] [place] [address] 82616 Erythrocyte distribution width (RBC) [Ratio] 14.1 % Normal 11.5-15.0 [facility] Comment on above: Performed By: #### Sarah WISE CMP, ####[facility] ([id number])[address] [place] [address] 22778 Hematocrit (Bld) [Volume fraction] 41.7 % Normal 39-49 [facility] Comment on above: Performed By: #### Sarah WISE CMP, ####[facility] ([id number])[address] [place] [address] 93142 Hemoglobin (Bld) [Mass/Vol] 14.1 g/dL Normal 13.0-17.0 [facility] Comment on above: Performed By: #### Sarah WISE CMP, ####[facility] ([id number])[address] [place] [address] 81583 Lymphocytes (Bld) [#/Vol] 0.4 10*3/uL Low 1.0-3.5 [facility] Comment on above: Performed By: #### Sarah WISE CMP, ####[facility] ([id number])[address] [place] [address] 06834 Lymphocytes/100 WBC (Bld) 3.4 % Normal [facility] Comment on above: Performed By: #### C BILLIE, CMP, ####[facility] ([id number])[address] [place] [address] 73402 MCH (RBC) [Entitic mass] 33.0 pg Normal 27-34 [facility] Comment on above: Performed By: #### Sarah WISE, CMP, ####[facility] ([id number])[address] [place] [address] 18765 MCHC (RBC) [Mass/Vol] 33.9 g/dL Normal 32-36 [facility] Comment on above: Performed By: #### Sarah WISE, CMP, ####[facility] ([id number])[address] [place] [address] 06649 MCV (RBC) [Entitic vol] 97 fL Normal 80-100 [facility] Comment on above: Performed By: #### Sarah WISE, CMP, ####[facility] ([id number])[address] [place] [address] 78801 Monocytes (Bld) [#/Vol] 0.2 10*3/uL Normal 0-0.9 [facility] Comment on above: Performed By: #### Sarah WISE, CMP, ####[facility] ([id number])[address] [place] [address] 02140 Monocytes/100 WBC (Bld) 1.7 % Normal [facility] Comment on above: Performed By: #### Sarah WISE, CMP, ####[facility] ([id number])[address] [place] [address] 65596 Neutrophils/100 WBC (Bld) 94.7 % Normal [facility] Comment on above: Performed By: #### Sarah WISE, CMP, ####[facility] ([id number])[address] [place] [address] 69796 Platelet mean volume (Bld) [Entitic vol] 8.7 fL Normal 7-12 [facility] Comment on above: Performed By: #### Sarah WISE CMP, 49953-1 ####[facility] ([id number])[address] [place] [address] 24828 Platelets (Bld) [#/Vol] 227 10*3/uL Normal 150-450 [facility] Comment on above: Performed By: #### Sarah WISE CMP, ####[facility] ([id number])[address] [place] [address] 28503 RBC COUNT 4.29 X10E12/L Normal 4.10-5.70 [facility] Comment on above: Performed By: #### Sarah WISE CMP, 40113-9 ####[facility] ([id number])[address] [place] [address] 09561 WBC (Bld) [#/Vol] 10.2 10*3/uL Normal 4.0-11.0 [facility] Comment on above: Performed By: #### Sarah WISE, CMP, 92381-5 ####[facility] ([id number])[address] [place] [address] 79762 COMPREHENSIVE METABOLIC PANE Johnny 08-10-2023 Albumin [Mass/Vol] 3.7 g/dL Normal 3.2-5.3 [facility] Comment on above: Performed By: #### Sarah WISE CMP, 49812-6 ####[facility] ([id number])[address] [place] [address] 41293 ALP [Catalytic activity/Vol] 34 U/L Low 39-130 [facility] Comment on above: Performed By: #### Sarah WISE, CMP, 10601-0 ####[facility] ([id number])[address] [place] [address] [place] [address] ALT [Catalytic activity/Vol] 27 U/L Normal 0-40 [facility] Comment on above: Performed By: #### C BUDDY WISE, ####[facility] ([id number])[address] [place] [address] [place] [address] Anion gap [Moles/Vol] 11 mmol/L Normal 5-15 [facility] Comment on above: Performed By: #### C BUDDY WISE, ####[facility] ([id number])[address] [place] [address] 43662 AST [Catalytic activity/Vol] 21 U/L Normal 0-41 [facility] Comment on above: Performed By: #### C BILLIE [facility], ####[facility] ([id number])[address] [place] [address] 10632 Bilirubin [Mass/Vol] 1.0 mg/dL Normal 0.3-1.2 [facility] Comment on above: Performed By: #### C BILLIE [facility], ####[facility] ([id number])[address] [place] [address] 83217 Calcium [Mass/Vol] 8.9 mg/dL Normal 8.5-10.5 [facility] Comment on above: Performed By: #### C BILLIE [facility], ####[facility] ([id number])[address] [place] [address] [place] [address] Chloride [Moles/Vol] 104 mmol/L Normal 98-109 [facility] Comment on above: Performed By: #### C BILLIE CMP, ####[facility] ([id number])[address] [place] [address] [place] [address] CO2 [Moles/Vol] 21 mmol/L Low 22-32 [facility] Comment on above: Performed By: #### C BILLIE [facility], ####[facility] ([id number])[address] [place] [address] 58809 Creatinine [Mass/Vol] 1.04 mg/dL Normal 0.70-1.20 [facility] Comment on above: Result Comment: METH OD TRACEABLE TO IDMS STANDARD Performed By: #### C BILLIE [facility], ####[facility] ([id number])[address] [place] [address] 96586 GFR/1.73 sq M.predicted among non-blacks MDRD (S/P/Bld) [Vol rate/Area] 71 mL/min/{1.73_m2} Normal >59 [facility] Comment on above: Result Comment: Reported eGFR is based on the CKD-EPI 2020 equation that does not use a race coefficient. Performed By: #### C BILLIE [facility], ####[facility] ([id number])[address] [place] [address] 18455 Glucose [Mass/Vol] 144 mg/dL High 65-99 [facility] Comment on above: Performed By: #### C BILLIE [facility], ####[facility] ([id number])[address] [place] [address] 14011 Potassium [Moles/Vol] 4.1 mmol/L Normal 3.5-5.0 [facility] Comment on above: Performed By: #### C BILLIE [facility], ####[facility] ([id number])[address] [place] [address] 67432 Protein [Mass/Vol] 6.1 g/dL Normal 6.0-8.0 [facility] Comment on above: Performed By: #### C BILLIE [facility], ####[facility] ([id number])[address] [place] [address] 71114 Sodium [Moles/Vol] 136 mmol/L Normal 134-146 [facility] Comment on above: Performed By: #### C BCA, CMP, 46238-5 ####[facility] ([id number])[address] [place] [address] 96617 Urea nitrogen [Mass/Vol] 20 mg/dL Normal 5-27 [facility] Comment on above: Performed By: #### C BCA, CMP, 96731-1 ####[facility] ([id number])[address] [place] [address] 20933 MAGNESIUMon 08-10-2023 Magnesium [Mass/Vol] 2.1 mg/dL Normal 1.8-2.6 [facility] Comment on above: Performed By: #### C BCA, CMP, 22509-2 ####[facility] ([id number])[address] [place] [address] 38713 CBC AND AUTO DIFFon 08-09-19 24 Band form neutrophils/100 WBC (Bld) 1.0 % Normal [facility] Comment on above: Performed By: #### C BCA, CMP, 65993-4, 32609-9, 35556-1, 69382-2, 45632-4, PINR, 55755-5 #### [facility] ([id number]) [address] [place] [address] 67826 Eosinophils (Bld) [#/Vol] 0.1 10*3/uL Normal 0.0-0.4 [facility] Comment on above: Performed By: #### C BCA, CMP, 87366-5, 47814-2, 03311-2, 99268-3, 33620-8, PINR, 07736-7 #### [facility] ([id number]) [address] [place] [address] 34832 Eosinophils/100 WBC (Bld) 1.0 % Normal [facility] Comment on above: Performed By: #### C BCA, CMP, 42625-6, 17038-2, 51471-4, 73029-0, 67266-7, PINR, 98249-1 #### [facility] ([id number]) [address] [place] [address] 24155 Erythrocyte distribution width (RBC) [Ratio] 13.9 % Normal 11.5-15.0 [facility] Comment on above: Performed By: #### C BCA, CMP, 13796-0, 20716-4, 65789-1, 24367-8, 94333-8, PINR, 55288-0 #### [facility] ([id number]) [address] [place] [address] 30323 Hematocrit (Bld) [Volume fraction] 42.3 % Normal 39-49 [facility] Comment on above: Performed By: #### C BCA, CMP, 14126-5, 94212-1, 23935-2, 95708-4, 97462-3, PINR, 13810-5 #### [facility] ([id number]) [address] [place] [address] 78744 Hemoglobin (Bld) [Mass/Vol] 14.5 g/dL Normal 13.0-17.0 [facility] Comment on above: Performed By: #### C BCA, CMP, 83098-5, 43548-0, 62623-9, 80586-7, 63819-1, PINR, 70353-5 #### [facility] ([id number]) [address] [place] [address] 87328 Lymphocytes (Bld) [#/Vol] 1.2 10*3/uL Normal 1.0-3.5 [facility] Comment on above: Performed By: #### C BCA, CMP, 89338-4, 38860-7, 08386-0, 32679-5, 68191-2, PINR, 01108-8 #### [facility] ([id number]) [address] [place] [address] 50836 Lymphocytes/100 WBC (Bld) 14.0 % Normal [facility] Comment on above: Performed By: #### C BCA, CMP, 69733-4, 36654-8, 78955-9, 64629-8, 78029-2, PINR, 88967-1 #### [facility] ([id number]) [address] [place] [address] 28186 MCH (RBC) [Entitic mass] 33.2 pg Normal 27-34 [facility] Comment on above: Performed By: #### C BCA, CMP, 98366-6, 84920-6, 58406-3, 77495-3, 23463-0, PINR, 46369-6 #### [facility] ([id number]) [address] [place] [address] 59427 MCHC (RBC) [Mass/Vol] 34.3 g/dL Normal 32-36 [facility] Comment on above: Performed By: #### C BCA, CMP, 71482-2, 45029-1, 04550-5, 47601-1, 21276-3, PINR, 83027-2 #### [facility] ([id number]) [address] [place] [address] 48245 MCV (RBC) [Entitic vol] 97 fL Normal 80-100 [facility] Comment on above: Performed By: #### C BCA, CMP, 15736-9, 13549-3, 46995-2, 49083-2, 17683-5, PINR, 21304-7 #### [facility] ([id number]) [address] [place] [address] 60786 Metamyelocytes/100 WBC (Bld) 1.0 % Normal [facility] Comment on above: Performed By: #### C BCA, CMP, 95999-1, 97581-6, 62177-7, 95212-6, 61714-5, PINR, 20296-3 #### [facility] ([id number]) [address] [place] [address] 42632 Monocytes (Bld) [#/Vol] 0.8 10*3/uL Normal 0-0.9 [facility] Comment on above: Performed By: #### C BCA, CMP, 93054-1, 44830-2, 60950-8, 48993-2, 93920-4, PINR, 75481-7 #### [facility] ([id number]) [address] [place] [address] 03686 Monocytes/100 WBC (Bld) 9.0 % Normal [facility] Comment on above: Performed By: #### C BCA, CMP, 40256-8, 30683-1, 63400-7, 30671-2, 82269-6, PINR, 39090-7 #### [facility] ([id number]) [address] [place] [address] 09876 MYELOCYTE 1.0 % Normal [facility] Comment on above: Performed By: #### C BCA, CMP, 42379-9, 89933-9, 70742-8, 59226-1, 85930-4, PINR, 65217-9 #### [facility] ([id number]) [address] [place] [address] 44015 Neutrophils (Bld) [#/Vol] 6.4 10*3/uL Normal 1.5-6.6 [facility] Comment on above: Performed By: #### C BCA, CMP, 13135-2, 37222-1, 38266-5, 49843-6, 34407-2, PINR, 19528-1 #### [facility] ([id number]) [address] [place] [address] 99218 Platelet mean volume (Bld) [Entitic vol] 9.0 fL Normal 7-12 [facility] Comment on above: Performed By: #### C BCA, CMP, 83449-3, 39036-4, 92766-1, 66388-2, 49920-8, PINR, 32940-9 #### [facility] ([id number]) [address] [place] [address] 17705 Platelets (Bld) [#/Vol] 241 10*3/uL Normal 150-450 [facility] Comment on above: Performed By: #### C BCA, CMP, 38191-2, 92767-9, 11070-7, 00803-5, 76795-7, PINR, 30350-3 #### [facility] ([id number]) [address] [place] [address] 61318 RBC COUNT 4.37 X10E12/L Normal 4.10-5.70 [facility] Comment on above: Performed By: #### C BCA, CMP, 02667-1, 99179-4, 06443-2, 23077-8, 47564-9, PINR, 47701-1 #### [facility] ([id number]) [address] [place] [address] 47809 SEG NEUTROPHIL 73.0 % Normal [facility] Comment on above: Performed By: #### C BCA, CMP, 19935-6, 12533-9, 93313-8, 36771-9, 23176-9, PINR, 62601-4 #### [facility] ([id number]) [address] [place] [address] 92625 TEARDROP 1+ Abnormal NONE [facility] Comment on above: Performed By: #### C BCA, CMP, 46176-0, 10982-1, 96190-1, 24416-0, 02159-9, PINR, 09449-4 #### [facility] ([id number]) [address] [place] [address] 02965 WBC (Bld) [#/Vol] 8.8 10*3/uL Normal 4.0-11.0 [facility] Comment on above: Performed By: #### C BCA, CMP, 69644-5, 94778-4, 98468-9, 66846-8, 55511-5, PINR, 41258-2 #### [facility] ([id number]) [address] [place] [address] 80646 COMPREHENSIVE METABOLIC PANE Johnny 08-09-2023 Albumin [Mass/Vol] 4.0 g/dL Normal 3.2-5.3 [facility] Comment on above: Performed By: #### C BCA, CMP, 40379-4, 90259-3, 89041-0, 54962-3, 60635-2, PINR, 75034-2 #### [facility] ([id number]) [address] [place] [address] 72656 ALP [Catalytic activity/Vol] 37 U/L Low 39-130 [facility] Comment on above: Performed By: #### C BCA, CMP, 55750-4, 32299-9, 19668-7, 71597-3, 26388-3, PINR, 99418-5 #### [facility] ([id number]) [address] [place] [address] 23309 ALT [Catalytic activity/Vol] 27 U/L Normal 0-40 [facility] Comment on above: Performed By: #### C BCA, CMP, 89741-4, 10465-0, 41511-4, 66242-1, 76855-9, PINR, 04324-1 #### [facility] ([id number]) [address] [place] [address] 95715 Anion gap [Moles/Vol] 5 mmol/L Normal 5-15 [facility] Comment on above: Performed By: #### C BCA, CMP, 92946-9, 84521-4, 97113-2, 49052-1, 69837-8, PINR, 23706-7 #### [facility] ([id number]) [address] [place] [address] 40872 AST [Catalytic activity/Vol] 24 U/L Normal 0-41 [facility] Comment on above: Performed By: #### C BCA, CMP, 65569-1, 96383-0, 16380-9, 91843-1, 82069-5, PINR, 76550-9 #### [facility] ([id number]) [address] [place] [address] 15464 Bilirubin [Mass/Vol] 0.7 mg/dL Normal 0.3-1.2 [facility] Comment on above: Performed By: #### C BCA, CMP, 94420-8, 26588-5, 32495-3, 86781-6, 94804-3, PINR, 15259-1 #### [facility] ([id number]) [address] [place] [address] 02636 Calcium [Mass/Vol] 8.7 mg/dL Normal 8.5-10.5 [facility] Comment on above: Performed By: #### C BCA, CMP, 28805-2, 44469-6, 83818-0, 32879-3, 30044-7, PINR, 60788-9 #### [facility] ([id number]) [address] [place] [address] 68251 Chloride [Moles/Vol] 107 mmol/L Normal 98-109 [facility] Comment on above: Performed By: #### C BCA, CMP, 22092-4, 32601-1, 23798-6, 81350-8, 81908-3, PINR, 76152-0 #### [facility] ([id number]) [address] [place] [address] 35757 CO2 [Moles/Vol] 24 mmol/L Normal 22-32 [facility] Comment on above: Performed By: #### C BCA, CMP, 07387-7, 47996-9, 16322-7, 74596-5, 15511-6, PINR, 83291-2 #### [facility] ([id number]) [address] [place] [address] Creatinine [Mass/Vol] 1.00 mg/dL Normal 0.70-1.20 [facility] Comment on above: Result Comment: METH OD TRACEABLE TO IDMS STANDARD Performed By: #### C BCA, CMP, 22607-3, 61305-4, 81942-1, 18401-3, 35077-1, PINR, 08522-1 #### [facility] ([id number]) [address] [place] [address] 48486 GFR/1.73 sq M.predicted among non-blacks MDRD (S/P/Bld) [Vol rate/Area] 74 mL/min/{1.73_m2} Normal >59 [facility] Comment on above: Result Comment: Reported eGFR is based on the CKD-EPI 2020 equation that does not use a race coefficient. Performed By: #### C BCA, CMP, 55320-8, 81615-6, 52242-5, 90024-7, 31098-1, PINR, 64386-7 #### [facility] ([id number]) [address] [place] [address] 68233 Glucose [Mass/Vol] 100 mg/dL High 65-99 [facility] Comment on above: Performed By: #### C BCA, CMP, 73852-4, 68959-7, 16186-8, 81651-6, 91115-4, PINR, 88384-6 #### [facility] ([id number]) [address] [place] [address] 24232 Potassium [Moles/Vol] 3.9 mmol/L Normal 3.5-5.0 [facility] Comment on above: Performed By: #### C BCA, CMP, 18411-4, 01229-5, 15181-7, 53929-1, 54165-3, PINR, 92982-6 #### [facility] ([id number]) [address] [place] [address] 63288 Protein [Mass/Vol] 6.7 g/dL Normal 6.0-8.0 [facility] Comment on above: Performed By: #### C BCA, CMP, 82866-1, 34510-1, 93892-2, 16451-8, 39495-8, PINR, 73057-8 #### [facility] ([id number]) [address] [place] [address] 16813 Sodium [Moles/Vol] 136 mmol/L Normal 134-146 [facility] Comment on above: Performed By: #### C BCA, CMP, 84656-8, 97941-3, 40347-8, 92065-7, 07592-4, PINR, 90253-1 #### [facility] ([id number]) [address] [place] [address] 98508 Urea nitrogen [Mass/Vol] 19 mg/dL Normal 5-27 [facility] Comment on above: Performed By: #### C BCA, CMP, 20540-1, 27837-3, 25550-6, 44213-7, 07403-4, PINR, 74127-3 #### [facility] ([id number]) [address] [place] [address] 29827 Fibrin D-dimer DDU (PPP) [Ma ss/Vol]on 08-09-2023 D DIMER <150 Normal <255 [facility] Comment on above: Result Comment: Results <255 ng/mL DDU: The presence of a VTE can safely be excluded with a negative D-Dimer result and Wells score. A negative result doesn't exclude the possibility of DIC. The test be repeated along with other diagnostic tests if the patient's symptoms persist or worsen. [email or web address] Performed By: #### C BCA, CMP, 03018-6, 15719-0, 34006-7, 59232-8, 52942-6, PINR, 94469-3 #### [facility] ([id number]) [address] [place] [address]54 Lactate (P antonette) [Moles/Vol]o n 08-09-2023 LACTATE W/REFLEX 1.3 mmol/L Normal 0.4-2.0 [facility] Comment on above: Result Comment: Result did not trigger repeat Lactate, re-order if needed. Performed By: #### C BCA, CMP, 95353-2, 47433-0, 49215-2, 78627-5, 04146-9, PINR, 11645-6 #### [facility] ([id number]) [address] [place] [address]99 MAGNESIUMon 08-09-2023 Magnesium [Mass/Vol] 2.3 mg/dL Normal 1.8-2.6 [facility] Comment on above: Performed By: #### C BCA, CMP, 27895-6, 38629-8, 91812-7, 35265-7, 06849-7, PINR, 25567-6 #### [facility] ([id number]) [address] [place] [address] 36382 Natriuretic peptide B [Mass/ Vol]on 08-09-2023 Natriuretic peptide B (Bld) [Mass/Vol] 79 pg/mL Normal <100.0 [facility] Comment on above: Performed By: #### C BCA, CMP, 60470-1, 24506-4, 93733-5, 27202-2, 67959-9, PINR, 00938-0 #### [facility] ([id number]) [address] [place] [address]752 PROTIME AND INRon 08-09-2023 INR Coag (PPP) [Relative time] 1.1 {INR} Normal 0.8-1.1 [facility] Comment on above: Performed By: #### C BCA, CMP, 51200-0, 09604-9, 58831-7, 47337-5, 68974-5, PINR, 98918-2 #### [facility] ([id number]) [address] [facility], [place] [address] PT Coag (PPP) [Time] 13.0 s Normal 9.8-13.2 [facility] Comment on above: Result Comment: NEW REFERENCE RANGE Performed By: #### C BCA, CMP, 37180-3, 52378-3, 10517-3, 32843-3, 32985-6, PINR, 84846-8 #### [facility] ([id number]) [address] [place] [address] SARS/FLU A+B/RSV by NAAT/Mol ecularon 08-09-2023 SARS/FLU [...] operators who are performing tests using either [employer] or [employer] systems and is limited to laboratories that [...] specimen repeat. Fact Sheet for Healthcare Providers: https://www.fda.gov/ak shiva/296297/download Fact Sheet for Patients: https://www.fda.gov/ak shiva/953430/download Normal [facility] Comment on above: Performed By: #### C OVFLR ####[facility] ([id number])[address] [place] [address] TROPONIN Ion 08-09-2023 Troponin I.cardiac [Mass/Vol] ng/mL Normal 0.00-0.04 [facility] Comment on above: Performed By: #### C BCA, CMP, 41834-6, 85522-3, 39204-2, 20844-5, 17904-8, PINR, [id number] #### [facility] ([id number]) [address] [place] [id number] XR CHEST 1 VWon 08-09-2023 XR CHEST [...] Gurdeep Strong on 08/09/2023 4:09 PM Normal [facility] aPTT Coag (PPP) [Time]on aPTT Coag (Bld) [Time] 32 s Normal 26-37 [facility] Comment on above: Result Comment: NEW REFERENCE RANGE Performed By: #### C BCA, CMP, 33639-8, 77754-3, 11832-5, 17905-4, 95492-5, PINR, [id number] ####[facility] ([id number])[address] [place] [address] XR CHEST 2 VWSon 08-02-2023 XR CHEST [...] Goodwin MD on 08/02/2023 4:01 PM Normal [facility] XR LSPINE MIN 4 VIEWSon 10-08 XR [...] ALEXEY MICHELLE Date: 2021-11-04 07:45 Normal [facility] CBC AUTO DIFFon 10-21-2021 BASO # 0.1 103/ul Normal 0.0-0.1 [facility] Comment on above: Performed By: #### C BC #### [facility] [address] [address] [address] Vannessa Quiroga Basophils/100 WBC (Bld) 1.1 % Normal 0.2-2.0 [facility] Comment on above: Performed By: #### C BC #### [facility] [address] [address] [address] Vannessa Quiroga EO # 0.2 103/ul Normal 0.0-0.7 [facility] Comment on above: Performed By: #### C BC #### [facility] [address] [address] [address] Vannessa Quiroga Eosinophils/100 WBC (Bld) 3.4 % Normal 0.9-7.0 [facility] Comment on above: Performed By: #### C BC #### [facility] [address] [address] [address] Vannessa Quiroga Erythrocyte distribution width (RBC) [Ratio] 13.0 % Normal 11.0-15.0 [facility] Comment on above: Performed By: #### C BC #### [facility] [address] [place] [address] Dr. Vannessa Quiroga Hematocrit (Bld) [Volume fraction] 45.1 % Normal 42.0-54.0 [facility] Comment on above: Performed By: #### C BC #### [facility] [address] [place] [address] Dr. Vannessa Quiroga Hemoglobin (Bld) [Mass/Vol] 15.0 g/dL Normal 14.0-18.0 [facility] Comment on above: Performed By: #### C BC #### [facility] [address] [place] [address] Dr. Vannessa Quiroga IG # 0.07 10e3/ul Critically high 0.00-0.03 [facility] Comment on above: Performed By: #### C BC #### [facility] [address] [place] [address] Dr. Vannessa Quiroga IG % 1.3 % Critically high 0.0-0.5 [facility] Comment on above: Performed By: #### C BC #### [facility] [address] [place] [address] Dr. Vannessa Quiroga LYMPH # 0.9 103/ul Critically low 1.2-3.8 [facility] Comment on above: Performed By: #### C BC #### [facility] [address] [place] [address] Dr. Vannessa Quiroga Lymphocytes/100 WBC (Bld) 17.2 % Critically low 20.5-60.0 [facility] Comment on above: Performed By: #### C BC #### [facility] [address] [place] [address] Dr. Vannessa Quiroga MANUAL DIFF REQ NO Normal [facility] Comment on above: Performed By: #### C BC #### [facility] [address] [place] [address] Dr. Vannessa Quiroga MCH (RBC) [Entitic mass] 31.3 pg Normal 25.9-34.0 [facility] Comment on above: Performed By: #### C BC #### [facility] [address] [place] [address] Dr. Vannessa Quiroga MCHC (RBC) [Mass/Vol] 33.3 g/dL Normal 29.9-35.2 [facility] Comment on above: Performed By: #### C BC #### [facility] [address] [place] [address] Dr. Vannessa Quiroga MCV (RBC) [Entitic vol] 94.2 fL Critically high 80.0-94.0 [facility] Comment on above: Performed By: #### C BC #### [facility] [address] [place] [address] Dr. Vannessa Quiroga MONO # 0.6 103/ul Normal 0.3-0.8 [facility] Comment on above: Performed By: #### C BC #### [facility] [address] [place] [address] Dr. Vannessa Quiroga Monocytes/100 WBC (Bld) 11.2 % Normal 1.7-12.0 [facility] Comment on above: Performed By: #### C BC #### [facility] [address] [place] [address] Dr. Vannessa Quiroga NEUT # 3.5 103/ul Normal 1.4-6.5 [facility] Comment on above: Performed By: #### C BC #### [facility] [address] [place] [address] Dr. Vannessa Quiroga Neutrophils/100 WBC (Bld) 65.8 % Normal 43.0-75.0 [facility] Comment on above: Performed By: #### C BC #### [facility] [address] [address] [address] Vannessa Quiroga Platelet mean volume (Bld) [Entitic vol] 9.9 fL Normal 9.5-13.5 [facility] Comment on above: Performed By: #### C BC #### [facility] [address] [address] [address] Vannessa Quiroga PLT 175 103/ul Normal 150-450 [facility] Comment on above: Performed By: #### C BC #### [facility] [address] [address] [address] Vannessa Quiroga RBC 4.79 106/ul Normal 4.70-6.10 [facility] Comment on above: Performed By: #### C BC #### [facility] [address] [place] [address] Dr. Vannessa Quiroga WBC 5.4 103/ul Normal 4.0-11.0 [facility] Comment on above: Performed By: #### C BC #### [facility] [address] [place] [address] Dr. Vannessa Quiroga FREE T3on 10-21-2021 FREE T3 2.13 pg/mlL Critically low 2.18-3.98 [facility] Comment on above: Performed By: #### T SH, CMP, LIPID, FT3, T4 #### [facility] [address] [place] [address] Dr. Vannessa Quiroga GLYCOHEMOGLOBIN A1Con 2021 ADA RECOMMENDATION SEE BELOW Normal [facility] Comment on above: Result Comment: ADA RECOMMENDED LIMIT 4.0 - 6.0 ADA THERAPEUTIC TARGET < 7.0 ACTION SUGGESTED > 7.0 Performed By: #### A 1C #### [facility] [address] [place] [address] Dr. Vannessa Quiroga Glucose [Mass/Vol] 120 mg/dL Normal [facility] Comment on above: Performed By: #### A 1C #### [facility] [address] [place] [address] Dr. Vannessa Quiroga HbA1c (Bld) [Mass fraction] 5.8 % Normal 4.5-6.2 [facility] Comment on above: Performed By: #### A 1C #### [facility] [address]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 Follow-up visit Follow-up EDWIGE DELANEY Start: 10-20-[address] ALEXEY MICHELLE Comment on above: Performed By: #### PSAD #### [facility] [address] [place] [address] Dr. Vannessa Quiroga Start: 01-08-2020 Cystoscopy Bigg DUNCAN Start: 10-14-2016 Brachytherapy Bigg DUNCAN Start: 06-29-2016 Transrectal biopsy of prostate using ultrasound guidance Bigg DUNCAN Colonoscopy Bigg DUNCAN Cystoscopy Bigg DUNCAN Esophagogastroduodenoscopy P marcy DUNCAN Laser assisted in si tu keratomileusis Bigg DUNCAN Repair of musculoten dinous cuff of shoulder Bigg DUNCAN Repair of spleen Bigg ECHEVERRIA Total orchidectomy Bigg CAPONE Transrectal biopsy o f prostate using ultrasound guidance Bigg DUNCAN Transurethral prostatectomy Bigg DUNCAN Plan of Treatment Date Care Activity Detail Author Start: 04-04-2024 Adult BMI Screening Adult BMI Screening [facility] Start: 04-04-2024 Tobacco Screening Tobacco Screening [facility] Start: 10-17-2023 End: 10-17-2023 Patient encounter procedure 10/17/2023 2:30 PM EDT Office Visit [facility] [address] [place] [address] Edwige Delaney MD [address] [place], [place] [id number] [facility] Start: 04-06-2023 COVID-19 Vaccine ( season) COVID-19 Vaccine ( season) [facility] Start: 12-16-2003 Fall Risk Screening Fall Risk Screening [facility] Start: 1957 Administration of varicella zoster vaccine Zoster (Shingles) Vaccine (1 of 2) [facility] Start: 1957 DTaP,Tdap and Td Vaccines (1 - Tdap) DTaP,Tdap and Td Vaccines (1 - Tdap) [facility] Start: 1956 Adult BMI Follow Up Plan Adult BMI Follow Up Plan [facility] Start: 1950 Depression Screening Depression Screening [facility] Start: 1940 Medicare Annual Wellness Visit Medicare Annual Wellness Visit [facility] Payers Date Payer Category Payer Medicare ANTHEM MEDICARE ANTHEM MEDICARE ADVANTAGE [id number] 2016-Present [phone] [address] [place] [address] [id number] 1959 Unknown [id number] 1940 Unknown [id number] 1938 Unknown [id number] 2.840.1.591064.3.579.2.593 1938 Unknown [id number] 2.16.840.1.901722.3.579.2.593 1938 Unknown [id number] 2.16.840.1.435755.3.579.2.593 1938 Unknown [id number] 2.16.840.1.964250.3.579.2.128 6 1938 Unknown [id number] 2.16.840.1.405639.3.579.2.128 6 1938 Unknown [id number] 2.16.840.1.622799.3.579.2.128 6 1938 Unknown [id number] 2.16.840.1.304761.3.579.2.128 6 1938 Unknown [id number] 2.16.840.1.025119.3.579.2.128 6 1938 Unknown [id number] 2.16.840.1.238519.3.579.2.128 6 1938 Unknown [id number] 2.16.840.1.466417.3.579.2.128 6 1938 Unknown [id number] 2.16.840.1.183608.3.579.2.128 6 1938 Unknown [id number] 2.16.840.1.999023.3.579.2.128 6 1938 Unknown [id number] 2.16.840.1.168580.3.579.2.128 6 1938 Unknown [id number] 2.16.840.1.596805.3.579.2.128 6 1938 Unknown [id number] 2.16.840.1.750230.3.579.2.128 6 1938 Unknown [id number] 2.16.840.1.861611.3.579.2.128 6 1938 Unknown [id number] 2.16.840.1.177908.3.579.2.128 6 1938 Unknown [id number] 2.16.840.1.976546.3.579.2.128 6 1938 Unknown [id number] 2.16.840.1.687995.3.579.2.128 6 1938 Unknown [id number] 2.16.840.1.097391.3.579.2.727 1938 Unknown [id number] 2.16.840.1.975916.3.579.2.727 1938 Unknown [id number] 2.16.840.1.472528.3.579.2.128 6 1938 Unknown [id number] 2.16.840.1.312211.3.579.2.128 6 1938 Unknown [id number] 2.16.840.1.239835.3.579.2.128 6 1938 Unknown [id number] 2.16.840.1.475497.3.579.2.128 6 1938 Unknown [id number] 2.16.840.1.608463.3.579.2.128 6 1938 Unknown [id number] 2.16.840.1.933038.3.579.2.128 6 Unknown Social History Date Type Detail Facility Start: 01-08-2020 End: 12-30-2023 Tobacco smoking status Ex-smoker (finding) [facility] Start: 06-19-2020 End: 04-04-2023 Sex Assigned At Male [facility] History of tobacco use Current smoker [facility] Start: 03-01-2022 Tobacco use and exposure Smokeless tobacco non-user [facility] Start: 04-04-2023 Alcohol intake Current non-dr tube heater of alcohol (finding) [facility] Start: 06-19-2020 End: 04-04-2023 Alcohol intake [facility] Childcare Unknown [facility] Start: 1940 [facility]igned At [facility] Functional Status Date Assessment Result Facility 12-30-2023 Functional Status N/A [facility] 11-19-2022 Functional Status N/A [facility] 11-16-2021 Functional Status N/A [facility] Clinical Notes 11-16-2021 to 12-30-2023 Telephone Encounter - Shanti Liu RN - 08/01/2023 11:44 AM EDTTelephone Encounter - Shanti Liu RN - 08/01/2023 11:44 AM EDT Note Date & Type Note Facility 12-30-2023 Hospital Discharge instructions Patient Education 12/30/2023 11:56:03 Prostate Cancer Screening Prostate Cancer Screening Prostate cancer screening is testing that is done to check for the presence of prostate cancer in men. The prostate gland is a walnut-sized gland that is located below the bladder and in front of the rectum in males. The function of the prostate is to add fluid to semen during ejaculation. Prostate cancer is one of the most common types of cancer in men. Who should have prostate cancer screening? Screening recommendations vary based on age and other risk factors, as well as between the professional organizations who make the recommendations. In general, screening is recommended if: You are age 50 to 70 and have an average risk for prostate cancer. You should talk with your health care provider about your need for screening and how often screening should be done. Because most prostate cancers are slow growing and will not cause , screening in this age group is generally reserved for men who have a 10- to 15-year life expectancy. You are younger than age 50, and you have these risk factors: ?Having a father, brother, or uncle who has been diagnosed with prostate cancer. The risk is higher if your family member's cancer occurred at an early age or if you have multiple family members with prostate cancer at an early age. ?Being a male who is Black or is of [place] or sub-Saharan descent. In general, screening is not recommended if: You are younger than age 40. You are between the ages of 40 and 49 and you have no risk factors. You are 70 years of age or older. At this age, the risks that screening can cause are greater than the benefits that it may provide. If you are at high risk for prostate cancer, your health care provider may recommend that you have screenings more often or that you start screening at a younger age. How is screening for prostate cancer done? The recommended prostate cancer screening test is a blood test called the prostate-specific antigen (PSA) test. PSA is a protein that is made in the prostate. As you age, your prostate naturally produces more PSA. Abnormally high PSA levels may be caused by: Prostate cancer. An enlarged prostate that is not caused by cancer (benign prostatic hyperplasia, or BPH). This condition is very common in older men. A prostate gland infection (prostatitis) or urinary tract infection. Certain medicines such as male hormones (like testosterone) or other medicines that raise testosterone levels. A rectal exam may be done as part of prostate cancer screening to help provide information about the size of your prostate gland. When a rectal exam is performed, it should be done after the PSA level is drawn to avoid any effect on the results. Depending on the PSA results, you may need more tests, such as: A physical exam to check the size of your prostate gland, if not done as part of screening. Blood and imaging tests. A procedure to remove tissue samples from your prostate gland for testing (biopsy). This is the only way to know for certain if you have prostate cancer. What are the benefits of prostate cancer screening? Screening can help to identify cancer at an early stage, before symptoms start and when the cancer can be treated more easily. There is a small chance that screening may lower your risk of dying from prostate cancer. The chance is small because prostate cancer is a slow-growing cancer, and most men with prostate cancer from a different cause. What are the risks of prostate cancer screening? The main risk of prostate cancer screening is diagnosing and treating prostate cancer that would never have caused any symptoms or problems. This is called overdiagnosisand overtreatment. PSA screening cannot tell you if your PSA is high due to cancer or a different cause. A prostate biopsy is the only procedure to diagnose prostate cancer. Even the results of a biopsy may not tell you if your cancer needs to be treated. Slow-growing prostate cancer may not need any treatment other than monitoring, so diagnosing and treating it may cause unnecessary stress or other side effects. Questions to ask your health care provider When should I start prostate cancer screening? What is my risk for prostate cancer? How often do I need screening? What type of screening tests do I need? How do I get my test results? What do my results mean? Do I need treatment? Where to find more information [employer]: www.cancer.org [employer]: www.auanet.org Contact a health care provider if: You have difficulty urinating. You have pain when you urinate or ejaculate. You have blood in your urine or semen. You have pain in your back or in the area of your prostate. Summary Prostate cancer is a common type of cancer in men. The prostate gland is located below the bladder and in front of the rectum. This gland adds fluid to semen during ejaculation. Prostate cancer screening may identify cancer at an early stage, when the cancer can be treated more easily and is less likely to have spread to other areas of the body. The prostate-specific antigen (PSA) test is the recommended screening test for prostate cancer, but it has associated risks. Discuss the risks and benefits of prostate cancer screening with your health care provider. If you are age 70 or older, the risks that screening can cause are greater than the benefits that it may provide. This information is not intended to replace advice given to you by your health care provider. Make sure you discuss any questions you have with your health care provider. Document Revised: 10/19/2021 Document Reviewed: 10/19/2021 [employer] Patient Education 2022 Aternity. Follow Up Care 11/19/2022 12:00:06 With:ALOK GARZON, Bigg Isabel, URL Address: [facility] [address] , [place] [address] [phone] When: Unknown Comments:1 yr w/ PSA [facility] 12-30-2023 Note Patient Education Oncology Prostate Cancer Screening Prostate cancer screening is testing that is done to check for the presence of prostate cancer in men. The prostate gland is a walnut-sized gland that is located below the bladder and in front of the rectum in males. The function of the prostate is to add fluid to semen during ejaculation. Prostate cancer is one of the most common types of cancer in men. Who should have prostate cancer screening? Screening recommendations vary based on age and other risk factors, as well as between the professional organizations who make the recommendations. In general, screening is recommended if: ? You are age 50 to 70 and have an average risk for prostate cancer. You should talk with your health care provider about your need for screening and how often screening should be done. Because most prostate cancers are slow growing and will not cause , screening in this age group is generally reserved for men who have a 10- to 15-year life expectancy. ? You are younger than age 50, and you have these risk factors: ? Having a father, brother, or uncle who has been diagnosed with prostate cancer. The risk is higher if your family member's cancer occurred at an early age or if you have multiple family members with prostate cancer at an early age. ? Being a male who is Black or is of [place] or sub-Saharan descent. In general, screening is not recommended if: ? You are younger than age 40. ? You are between the ages of 40 and 49 and you have no risk factors. ? You are 70 years of age or older. At this age, the risks that screening can cause are greater than the benefits that it may provide. If you are at high risk for prostate cancer, your health care provider may recommend that you have screenings more often or that you start screening at a younger age. How is screening for prostate cancer done? The recommended prostate cancer screening test is a blood test called the prostate-specific antigen (PSA) test. PSA is a protein that is made in the prostate. As you age, your prostate naturally produces more PSA. Abnormally high PSA levels may be caused by: ? Prostate cancer. ? An enlarged prostate that is not caused by cancer (benign prostatic hyperplasia, or BPH). This condition is very common in older men. ? A prostate gland infection (prostatitis) or urinary tract infection. ? Certain medicines such as male hormones (like testosterone) or other medicines that raise testosterone levels. A rectal exam may be done as part of prostate cancer screening to help provide information about the size of your prostate gland. When a rectal exam is performed, it should be done after the PSA level is drawn to avoid any effect on the results. Depending on the PSA results, you may need more tests, such as: ? A physical exam to check the size of your prostate gland, if not done as part of screening. ? Blood and imaging tests. ? A procedure to remove tissue samples from your prostate gland for testing (biopsy). This is the only way to know for certain if you have prostate cancer. What are the benefits of prostate cancer screening? ? Screening can help to identify cancer at an early stage, before symptoms start and when the cancer can be treated more easily. ? There is a small chance that screening may lower your risk of dying from prostate cancer. The chance is small because prostate cancer is a slow-growing cancer, and most men with prostate cancer from a different cause. What are the risks of prostate cancer screening? The main risk of prostate cancer screening is diagnosing and treating prostate cancer that would never have caused any symptoms or problems. This is called overdiagnosisand overtreatment. PSA screening cannot tell you if your PSA is high due to cancer or a different cause. A prostate biopsy is the only procedure to diagnose prostate cancer. Even the results of a biopsy may not tell you if your cancer needs to be treated. Slow-growing prostate cancer may not need any treatment other than monitoring, so diagnosing and treating it may cause unnecessary stress or other side effects. Questions to ask your health care provider ? When should I start prostate cancer screening? ? What is my risk for prostate cancer? ? How often do I need screening? ? What type of screening tests do I need? ? How do I get my test results? ? What do my results mean? ? Do I need treatment? Where to find more information ? The [place] [employer]: www.cancer.org ? [employer]: www.auanet.org Contact a health care provider if: ? You have difficulty urinating. ? You have pain when you urinate or ejaculate. ? You have blood in your urine or semen. ? You have pain in your back or in the area of your prostate. Summary ? Prostate cancer is a common type of cancer in men. The prostate gland is located below the bladder and in front of the rectum. (more content not included)... [facility] 08-01-2023 Miscellaneous Notes Pt Angie left message, returned call left message documented in this encounter [facility] 08-01-2023 Telephone encounter Note Pt Angie left message, returned call left message [facility] 11-19-2022 Hospital Discharge instructions Patient Education 11/19/2022 [...] urethra. Follow these instructions at home: Take gotz-kvv-zshvhtr and prescription medicines only as told by [...] provider. Document Revised: 11/11/2021 Document Reviewed: 11/11/2021 [employer] Patient Education 2022 Aternity. Follow Up Care 11/16/2021 14:26:07 With:ALOK GARZON, Bigg Isabel, URL Address: [facility] [address] , [place] [address]- When: Unknown [facility] 11-16-2021 Hospital Discharge instructions Patient Education 11/16/2021 [...] 04/25/2006 Document Revised: 01/12/2019 Document Reviewed: 03/25/2017 [employer] Patient Education 2020 Aternity. 11/16/2021 14:13:15 Benign Prostatic Hyperplasia Benign Prostatic [...] urethra. Follow these instructions at home: Take tuqf-ewo-fyzykpf and prescription medicines only as told by [...] 04/25/2006 Document Revised: 03/20/2019 Document Reviewed: 05/30/2017 [employer] Patient Education 2020 A[employer]ity. Follow Up Care 11/03/2020 12:25:53 With:Bigg DUNCAN MD, URL Address: [facility] [address] , [place] [address]- [phone] When:Within 1 Year(s) Comments:1 year fu w PSA [facility] Evaluation + Plan note Future Appointments Appointment Date:11/19/2022 11:00:00 AM Scheduled Provider:Bigg DUNCAN MD Location:[facility] Appointment Type:URO Office Visit Diagnostic Tests PendingPSA Total 11/16/21PSA Total 11/16/21 [facility] Evaluation + Plan note Future Appointments Appointment Date:11/21/2023 09:45:00 AM Scheduled Provider:Bigg DUNCAN MD Location:[facility] Appointment Type:URO Office Visit Diagnostic Tests PendingPSA Total 10/08/23 [facility] Evaluation + Plan note Future Appointments Appointment Date:12/31/2024 10:45:00 AM Scheduled Provider:Bigg DUNCAN MD Location:[facility] Appointment Type:URO Office Visit Diagnostic Tests PendingPSA Total 12/30/23 [facility] Hospital course Narrative No data available for this section [facility] [employer] Instructions Not on filedocumente d in this encounter [facility] note No data available for this section [facility] Summary Purpose Family History No Family History Records FoundNo Family History Records FoundNo Family History Records FoundNo Family History Records Found No data available for this section No Family History Records FoundNo Family History [...] section and content) DATE CREATED AUTHOR 11/02/2017 [facility] DATE CREATED AUTHOR AUTHOR'S ORGANIZ ATION 05/31/2021 [facility] DATE CREATED AUTHOR AUTHOR'S ORGANIZ ATION 04/30/2022 [facility] DATE CREATED AUTHOR AUTHOR'S ORGANIZ ATION 12/10/2023 [facility] DATE CREATED AUTHOR AUTHOR'S ORGANIZ ATION 01/01/2024 [facility] DATE CREATED AUTHOR AUTHOR'S ORGANIZ ATION 02/09/2024 [facility] Care Team (unrecognized sect ion and content) 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 [employer] provides no warranty or guarantee of the accuracy or completeness of information in this document.
== END 2024-02-10 10:56 | disposition home or self-care (01) ==
LOC: EC 10:56
PROVIDERS: PCP Nurse Practitioner Family; Visit Provider Orthopaedic Surgery Orthopaedic Surgery of the Spine
DX: M54.50 Low back pain, unspecified (principal); M51.369 Other intervertebral disc degeneration, lumbar region without mention of lumbar back pain or lower extremity pain
CPT/HCPCS: 72110

== ENCOUNTER 2024-04-30 08:32 | Outpatient (OUT) | payer MEDICARE, SELFPAY ==
--- OUTSIDE RECORDS SUMMARY | 2024-04-30 09:00 | XMS_ITS | CCD ---
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 Lymphocytes (Bld) [#/Vol] 0.4 10*3/uL Low 1.0-3.5 [facility] Comment on above: Performed By: #### Sarah WISE CMP, ####[facility] ([id number])[address] [place] [address] 60718 Lymphocytes/100 WBC (Bld) 3.4 % Normal [facility] Comment on above: Performed By: #### C BILLIE CMP, ####[facility] ([id number])[address] [place] [address] 99897 MCH (RBC) [Entitic mass] 33.0 pg Normal 27-34 [facility] Comment on above: Performed By: #### Sarah WISE, CMP, ####[facility] ([id number])[address] [place] [address] 47628 MCHC (RBC) [Mass/Vol] 33.9 g/dL Normal 32-36 [facility] Comment on above: Performed By: #### Sarah WISE CMP, ####[facility] ([id number])[address] [place] [address] 16798 MCV (RBC) [Entitic vol] 97 fL Normal 80-100 [facility] Comment on above: Performed By: #### Sarah WISE, CMP, ####[facility] ([id number])[address] [place] [address] 75138 Monocytes (Bld) [#/Vol] 0.2 10*3/uL Normal 0-0.9 [facility] Comment on above: Performed By: #### Sarah WISE CMP, ####[facility] ([id number])[address] [place] [address] 36622 Monocytes/100 WBC (Bld) 1.7 % Normal [facility] Comment on above: Performed By: #### Sarah WISE, CMP, ####[facility] ([id number])[address] [place] [address] 84258 Neutrophils/100 WBC (Bld) 94.7 % Normal [facility] Comment on above: Performed By: #### Sarah WISE, CMP, ####[facility] ([id number])[address] [place] [address] 16858 Platelet mean volume (Bld) [Entitic vol] 8.7 fL Normal 7-12 [facility] Comment on above: Performed By: #### C BILLIE CMP, ####[facility] ([id number])[address] [place] [address] 04983 Platelets (Bld) [#/Vol] 227 10*3/uL Normal 150-450 [facility] Comment on above: Performed By: #### C BILLIE, CMP, ####[facility] ([id number])[address] [place] [address] 74618 RBC COUNT 4.29 X10E12/L Normal 4.10-5.70 [facility] Comment on above: Performed By: #### Sarah WISE CMP, ####[facility] ([id number])[address] [place] [address] 76648 WBC (Bld) [#/Vol] 10.2 10*3/uL Normal 4.0-11.0 [facility] Comment on above: Performed By: #### Sarah WISE, CMP, 18359-5 ####[facility] ([id number])[address] [place] [address] 38290 COMPREHENSIVE METABOLIC PANE Johnny 08-10-2023 Albumin [Mass/Vol] 3.7 g/dL Normal 3.2-5.3 [facility] Comment on above: Performed By: #### C BILLIE, CMP, ####[facility] ([id number])[address] [place] [address] 75304 ALP [Catalytic activity/Vol] 34 U/L Low 39-130 [facility] Comment on above: Performed By: #### Sarah BCA, CMP, ####[facility] ([id number])[address], [place] [address] ALT [Catalytic activity/Vol] 27 U/L Normal 0-40 [facility] Comment on above: Performed By: #### C BUDDY WISE, 74742-4 ####[facility] ([id number])[address] [place] [address] [place] [address] Anion gap [Moles/Vol] 11 mmol/L Normal 5-15 [facility] Comment on above: Performed By: #### C BUDDY WISE, 78019-6 ####[facility] ([id number])[address] [place] [address] 91664 AST [Catalytic activity/Vol] 21 U/L Normal 0-41 [facility] Comment on above: Performed By: #### C BUDDY WISE, 48881-3 ####[facility] ([id number])[address] [place] [address] [place] [address] Bilirubin [Mass/Vol] 1.0 mg/dL Normal 0.3-1.2 [facility] Comment on above: Performed By: #### C BUDDY WISE, 45575-7 ####[facility] ([id number])[address] [place] [address] [place] [address] Calcium [Mass/Vol] 8.9 mg/dL Normal 8.5-10.5 [facility] Comment on above: Performed By: #### C BUDDY WISE, 31991-1 ####[facility] ([id number])[address] [place] [address] [place] [address] Chloride [Moles/Vol] 104 mmol/L Normal 98-109 [facility] Comment on above: Performed By: #### C BILLIE CMP, 72527-5 ####[facility] ([id number])[address] [place] [address] [place] [address] CO2 [Moles/Vol] 21 mmol/L Low 22-32 [facility] Comment on above: Performed By: #### C BILLIE CMP, 08611-9 ####[facility] ([id number])[address] [place] [address] 01030 Creatinine [Mass/Vol] 1.04 mg/dL Normal 0.70-1.20 [facility] Comment on above: Result Comment: METH OD TRACEABLE TO IDMS STANDARD Performed By: #### C BILLIE [facility], ####[facility] ([id number])[address] [place] [address] 45664 GFR/1.73 sq M.predicted among non-blacks MDRD (S/P/Bld) [Vol rate/Area] 71 mL/min/{1.73_m2} Normal >59 [facility] Comment on above: Result Comment: Reported eGFR is based on the CKD-EPI 2020 equation that does not use a race coefficient. Performed By: #### C BILLIE [facility], ####[facility] ([id number])[address] [place] [address] 40617 Glucose [Mass/Vol] 144 mg/dL High 65-99 [facility] Comment on above: Performed By: #### C BILLIE [facility], 44759-7 ####[facility] ([id number])[address] [place] [address] 35960 Potassium [Moles/Vol] 4.1 mmol/L Normal 3.5-5.0 [facility] Comment on above: Performed By: #### C BILLIE [facility], 58830-1 ####[facility] ([id number])[address] [place] [address] 12917 Protein [Mass/Vol] 6.1 g/dL Normal 6.0-8.0 [facility] Comment on above: Performed By: #### C BILLIE [facility], 32633-4 ####[facility] ([id number])[address] [place] [address] 78024 Sodium [Moles/Vol] 136 mmol/L Normal 134-146 [facility] Comment on above: Performed By: #### C BCA, CMP, 72868-8 ####[facility] ([id number])[address] [place] [address] 00025 Urea nitrogen [Mass/Vol] 20 mg/dL Normal 5-27 [facility] Comment on above: Performed By: #### C BCA, CMP, 66347-7 ####[facility] ([id number])[address] [place] [address] 39360 MAGNESIUMon 08-10-2023 Magnesium [Mass/Vol] 2.1 mg/dL Normal 1.8-2.6 [facility] Comment on above: Performed By: #### C BCA, CMP, 55549-6 ####[facility] ([id number])[address] [place] [address] 22887 CBC AND AUTO DIFFon 08-09-19 24 Band form neutrophils/100 WBC (Bld) 1.0 % Normal [facility] Comment on above: Performed By: #### C BCA, CMP, 32603-5, 96584-5, 55701-5, 13922-5, 66830-0, PINR, 36191-4 #### [facility] ([id number]) [address] [place] [address] 33773 Eosinophils (Bld) [#/Vol] 0.1 10*3/uL Normal 0.0-0.4 [facility] Comment on above: Performed By: #### C BCA, CMP, 13677-7, 67307-6, 79131-5, 04916-2, 96590-1, PINR, 67546-1 #### [facility] ([id number]) [address] [place] [address] 13735 Eosinophils/100 WBC (Bld) 1.0 % Normal [facility] Comment on above: Performed By: #### C BCA, CMP, 94774-4, 55532-0, 44828-1, 44727-8, 70344-8, PINR, 29938-6 #### [facility] ([id number]) [address] [place] [address] 80434 Erythrocyte distribution width (RBC) [Ratio] 13.9 % Normal 11.5-15.0 [facility] Comment on above: Performed By: #### C BCA, CMP, 21016-2, 91869-9, 17902-6, 17648-4, 19231-7, PINR, 16237-8 #### [facility] ([id number]) [address] [place] [address] 19735 Hematocrit (Bld) [Volume fraction] 42.3 % Normal 39-49 [facility] Comment on above: Performed By: #### C BCA, CMP, 99447-3, 84708-2, 59383-2, 74088-2, 98132-0, PINR, 55139-6 #### [facility] ([id number]) [address] [place] [address] 78185 Hemoglobin (Bld) [Mass/Vol] 14.5 g/dL Normal 13.0-17.0 [facility] Comment on above: Performed By: #### C BCA, CMP, 47719-3, 30726-4, 80121-4, 81714-1, 02659-7, PINR, 71659-3 #### [facility] ([id number]) [address] [place] [address] 17333 Lymphocytes (Bld) [#/Vol] 1.2 10*3/uL Normal 1.0-3.5 [facility] Comment on above: Performed By: #### C BCA, CMP, 75607-9, 93732-7, 49740-2, 29055-2, 09473-4, PINR, 85804-5 #### [facility] ([id number]) [address] [place] [address] 81012 Lymphocytes/100 WBC (Bld) 14.0 % Normal [facility] Comment on above: Performed By: #### C BCA, CMP, 97017-3, 90702-9, 03519-6, 25419-5, 60540-6, PINR, 51455-9 #### [facility] ([id number]) [address] [place] [address] 36193 MCH (RBC) [Entitic mass] 33.2 pg Normal 27-34 [facility] Comment on above: Performed By: #### C BCA, CMP, 69960-2, 86668-1, 46165-9, 00330-2, 83647-1, PINR, 64062-5 #### [facility] ([id number]) [address] [place] [address] 44150 MCHC (RBC) [Mass/Vol] 34.3 g/dL Normal 32-36 [facility] Comment on above: Performed By: #### C BCA, CMP, 04014-9, 37813-5, 52148-5, 97137-2, 51743-5, PINR, 67295-8 #### [facility] ([id number]) [address] [place] [address] 01140 MCV (RBC) [Entitic vol] 97 fL Normal 80-100 [facility] Comment on above: Performed By: #### C BCA, CMP, 93703-5, 25270-1, 56832-9, 86564-9, 81276-7, PINR, 74939-8 #### [facility] ([id number]) [address] [place] [address] 99050 Metamyelocytes/100 WBC (Bld) 1.0 % Normal [facility] Comment on above: Performed By: #### C BCA, CMP, 89375-0, 85104-5, 04856-6, 51378-0, 52602-2, PINR, 02638-0 #### [facility] ([id number]) [address] [place] [address] 06966 Monocytes (Bld) [#/Vol] 0.8 10*3/uL Normal 0-0.9 [facility] Comment on above: Performed By: #### C BCA, CMP, 77960-2, 67437-7, 48659-8, 64760-3, 98209-6, PINR, 54201-9 #### [facility] ([id number]) [address] [place] [address] 32865 Monocytes/100 WBC (Bld) 9.0 % Normal [facility] Comment on above: Performed By: #### C BCA, CMP, 69577-8, 43117-6, 91667-3, 51127-1, 12424-0, PINR, 60724-9 #### [facility] ([id number]) [address] [place] [address] 22468 MYELOCYTE 1.0 % Normal [facility] Comment on above: Performed By: #### C BCA, CMP, 60912-6, 75196-9, 07794-4, 53339-2, 63916-5, PINR, 87881-0 #### [facility] ([id number]) [address] [place] [address] 85183 Neutrophils (Bld) [#/Vol] 6.4 10*3/uL Normal 1.5-6.6 [facility] Comment on above: Performed By: #### C BCA, CMP, 57065-3, 55422-4, 18000-9, 03583-0, 70371-3, PINR, 05925-1 #### [facility] ([id number]) [address] [place] [address] 81764 Platelet mean volume (Bld) [Entitic vol] 9.0 fL Normal 7-12 [facility] Comment on above: Performed By: #### C BCA, CMP, 34335-8, 66028-4, 34939-7, 80837-6, 89061-6, PINR, 98747-0 #### [facility] ([id number]) [address] [place] [address] 51709 Platelets (Bld) [#/Vol] 241 10*3/uL Normal 150-450 [facility] Comment on above: Performed By: #### C BCA, CMP, 48438-7, 67616-8, 60689-5, 44178-6, 10452-7, PINR, 61178-5 #### [facility] ([id number]) [address] [place] [address] 57825 RBC COUNT 4.37 X10E12/L Normal 4.10-5.70 [facility] Comment on above: Performed By: #### C BCA, CMP, 04807-7, 60762-9, 93785-2, 58649-9, 59770-9, PINR, 33490-5 #### [facility] ([id number]) [address] [place] [address] 68014 SEG NEUTROPHIL 73.0 % Normal [facility] Comment on above: Performed By: #### C BCA, CMP, 74632-0, 47382-5, 24233-0, 75521-0, 38351-3, PINR, 51745-8 #### [facility] ([id number]) [address] [place] [address] 84324 TEARDROP 1+ Abnormal NONE [facility] Comment on above: Performed By: #### C BCA, CMP, 50700-3, 25511-4, 21064-0, 80345-2, 56267-3, PINR, 72814-4 #### [facility] ([id number]) [address] [place] [address] 92027 WBC (Bld) [#/Vol] 8.8 10*3/uL Normal 4.0-11.0 [facility] Comment on above: Performed By: #### C BCA, CMP, 60425-4, 02612-7, 55097-3, 35101-4, 68253-4, PINR, 87906-8 #### [facility] ([id number]) [address] [place] [address] 17552 COMPREHENSIVE METABOLIC PANE Johnny 08-09-2023 Albumin [Mass/Vol] 4.0 g/dL Normal 3.2-5.3 [facility] Comment on above: Performed By: #### C BCA, CMP, 46283-2, 46426-9, 79431-9, 93420-4, 79083-7, PINR, 08102-1 #### [facility] ([id number]) [address] [place] [address] 50250 ALP [Catalytic activity/Vol] 37 U/L Low 39-130 [facility] Comment on above: Performed By: #### C BCA, CMP, 24853-4, 49410-9, 83641-9, 36621-0, 57571-4, PINR, 22769-5 #### [facility] ([id number]) [address] [place] [address] 59741 ALT [Catalytic activity/Vol] 27 U/L Normal 0-40 [facility] Comment on above: Performed By: #### C BCA, CMP, 93449-2, 44762-0, 06147-6, 30551-1, 03519-2, PINR, 48082-5 #### [facility] ([id number]) [address] [place] [address] 06814 Anion gap [Moles/Vol] 5 mmol/L Normal 5-15 [facility] Comment on above: Performed By: #### C BCA, CMP, 01631-4, 06980-4, 79023-8, 16916-2, 08509-9, PINR, 31442-7 #### [facility] ([id number]) [address], [place] [address] AST [Catalytic activity/Vol] 24 U/L Normal 0-41 [facility] Comment on above: Performed By: #### C BCA, CMP, 64951-3, 53093-3, 25727-3, 90418-1, 13436-1, PINR, 82264-4 #### [facility] ([id number]) [address] [place] [address] 60227 Bilirubin [Mass/Vol] 0.7 mg/dL Normal 0.3-1.2 [facility] Comment on above: Performed By: #### C BCA, CMP, 49699-6, 78226-3, 76309-3, 90168-0, 27241-1, PINR, 37370-1 #### [facility] ([id number]) [address] [place] [address] 66224 Calcium [Mass/Vol] 8.7 mg/dL Normal 8.5-10.5 [facility] Comment on above: Performed By: #### C BCA, CMP, 17822-5, 95295-6, 77121-6, 39121-6, 64948-2, PINR, 54582-8 #### [facility] ([id number]) [address] [place] [address] 74495 Chloride [Moles/Vol] 107 mmol/L Normal 98-109 [facility] Comment on above: Performed By: #### C BCA, CMP, 72946-8, 38666-8, 27767-2, 99069-2, 18010-5, PINR, 66180-0 #### [facility] ([id number]) [address] [place] [address] [place] [address] CO2 [Moles/Vol] 24 mmol/L Normal 22-32 [facility] Comment on above: Performed By: #### C BCA, CMP, 65840-0, 12495-5, 87242-9, 45622-2, 84016-2, PINR, 59433-8 #### [facility] ([id number]) [address] [place] [address] 72966 Creatinine [Mass/Vol] 1.00 mg/dL Normal 0.70-1.20 [facility] Comment on above: Result Comment: METH OD TRACEABLE TO IDMS STANDARD Performed By: #### C BCA, CMP, 55997-3, 17912-0, 04616-3, 40414-5, 85157-2, PINR, 69115-9 #### [facility] ([id number]) [address] [place] [address] 78860 GFR/1.73 sq M.predicted among non-blacks MDRD (S/P/Bld) [Vol rate/Area] 74 mL/min/{1.73_m2} Normal >59 [facility] Comment on above: Result Comment: Reported eGFR is based on the CKD-EPI 2020 equation that does not use a race coefficient. Performed By: #### C BCA, CMP, 61515-7, 16631-7, 62492-0, 13002-3, 19428-2, PINR, 41339-7 #### [facility] ([id number]) [address] [place] [address] 28727 Glucose [Mass/Vol] 100 mg/dL High 65-99 [facility] Comment on above: Performed By: #### C BCA, CMP, 28850-2, 35832-9, 30722-0, 33604-4, 68345-0, PINR, 77372-2 #### [facility] ([id number]) [address] [place] [address] 77131 Potassium [Moles/Vol] 3.9 mmol/L Normal 3.5-5.0 [facility] Comment on above: Performed By: #### C BCA, CMP, 10261-9, 29442-3, 46751-8, 07172-1, 38371-3, PINR, 14394-6 #### [facility] ([id number]) [address] [place] [address] [place] [address] Protein [Mass/Vol] 6.7 g/dL Normal 6.0-8.0 [facility] Comment on above: Performed By: #### C BCA, CMP, 20606-4, 48666-3, 53119-6, 52199-2, 00819-3, PINR, 69666-8 #### [facility] ([id number]) [address] [place] [address] 73532 Sodium [Moles/Vol] 136 mmol/L Normal 134-146 [facility] Comment on above: Performed By: #### C BCA, CMP, 19211-1, 54307-5, 16729-0, 69720-9, 14203-4, PINR, 67064-6 #### [facility] ([id number]) [address] [place] [address] 13944 Urea nitrogen [Mass/Vol] 19 mg/dL Normal 5-27 [facility] Comment on above: Performed By: #### C BCA, CMP, 96303-2, 82389-0, 83977-6, 72504-8, 94553-0, PINR, 40358-0 #### [facility] ([id number]) [address] [place] [address] 75629 Fibrin D-dimer DDU (PPP) [Ma ss/Vol]on 08-09-2023 D DIMER <150 Normal <255 [facility] Comment on above: Result Comment: Results <255 ng/mL DDU: The presence of a VTE can safely be excluded with a negative D-Dimer result and Wells score. A negative result doesn't exclude the possibility of DIC. The test be repeated along with other diagnostic tests if the patient's symptoms persist or worsen. [email or web address] Performed By: #### C BCA, CMP, 82743-7, 71678-3, 33426-4, 81004-5, 67675-4, PINR, 24093-5 #### [facility] ([id number]) [address] [place] [address] Lactate (P antonette) [Moles/Vol]o n 08-09-2023 LACTATE W/REFLEX 1.3 mmol/L Normal 0.4-2.0 [facility] Comment on above: Result Comment: Result did not trigger repeat Lactate, re-order if needed. Performed By: #### C BCA, CMP, 60464-2, 12350-3, 22353-6, 23896-0, 86451-7, PINR, 79318-6 #### [facility] ([id number]) [address] [place] [address] MAGNESIUMon 08-09-2023 Magnesium [Mass/Vol] 2.3 mg/dL Normal 1.8-2.6 [facility] Comment on above: Performed By: #### C BCA, CMP, 16601-3, 07783-8, 81780-9, 95875-9, 04029-0, PINR, 14382-0 #### [facility] ([id number]) [address] [place] [address] Natriuretic peptide B [Mass/ Vol]on 08-09-2023 Natriuretic peptide B (Bld) [Mass/Vol] 79 pg/mL Normal <100.0 [facility] Comment on above: Performed By: #### C BCA, CMP, 64976-1, 48554-7, 65045-4, 89157-2, 92742-5, PINR, 42179-0 #### [facility] ([id number]) [address] [place] [address]2812 PROTIME AND INRon 08-09-2023 INR Coag (PPP) [Relative time] 1.1 {INR} Normal 0.8-1.1 [facility] Comment on above: Performed By: #### C BCA, CMP, 76363-7, 43314-7, 80044-0, 37082-5, 99857-6, PINR, 24109-3 #### [facility] ([id number]) [address] [place] [address] PT Coag (PPP) [Time] 13.0 s Normal 9.8-13.2 [facility] Comment on above: Result Comment: NEW REFERENCE RANGE Performed By: #### C BCA, CMP, 07180-0, 68308-3, 61234-4, 28838-0, 12217-6, PINR, 79768-1 #### [facility] ([id number]) [address] [place] [address] SARS/FLU A+B/RSV by NAAT/Mol ecularon 08-09-2023 SARS/FLU [...] operators who are performing tests using either [email or web address] [facility] or [facility] systems and is limited to laboratories that [...] specimen repeat. Fact Sheet for Healthcare Providers: https://www.fda.gov/me shiva/819864/download Fact Sheet for Patients: https://www.fda.gov/ct shiva/294874/download Normal [facility] Comment on above: Performed By: #### C OVFLR ####[facility] ([id number])[address] [place] [address] TROPONIN Ion 08-09-2023 Troponin I.cardiac [Mass/Vol] ng/mL Normal 0.00-0.04 [facility] Comment on above: Performed By: #### C BCA, CMP, 30464-1, 98513-2, 77672-1, 98085-4, 53604-9, PINR, 64885-4 #### [facility] ([id number]) [address] [place] [address]17 XR CHEST 1 VWon 08-09-2023 XR CHEST [...] Gurdeep Strong on 08/09/2023 4:09 PM Normal [facility] aPTT Coag (PPP) [Time]on aPTT Coag (Bld) [Time] 32 s Normal 26-37 [facility] Comment on above: Result Comment: NEW REFERENCE RANGE Performed By: #### C BCA, CMP, 81397-0, 26310-7, 96193-7, 89604-5, 31515-1, PINR, 99081-0 ####[facility] ([id number])[address] [place] [address] XR CHEST 2 VWSon 08-02-2023 XR CHEST [...] Goodwin MD on 08/02/2023 4:01 PM Normal [facility] XR LSPINE MIN 4 VIEWSon 10-08 XR [...] ALEXEY MICHELLE Date: 2021-11-04 07:45 Normal [facility] CBC AUTO DIFFon 10-21-2021 BASO # 0.1 103/ul Normal 0.0-0.1 [facility] Comment on above: Performed By: #### C BC #### [facility] [address] [address] [address] Vannessa Quiroga Basophils/100 WBC (Bld) 1.1 % Normal 0.2-2.0 [facility] Comment on above: Performed By: #### C BC #### [facility] [address] [address] [address] Vannessa Quiroga EO # 0.2 103/ul Normal 0.0-0.7 [facility] Comment on above: Performed By: #### C BC #### [facility] [address] [address] [address] Vannessa Quiroga Eosinophils/100 WBC (Bld) 3.4 % Normal 0.9-7.0 [facility] Comment on above: Performed By: #### C BC #### [facility] [address] [place] [address] Dr. Vannessa Quiroga Erythrocyte distribution width (RBC) [Ratio] 13.0 % Normal 11.0-15.0 [facility] Comment on above: Performed By: #### C BC #### [facility] [address] [place] [address] Dr. Vannessa Quiroga Hematocrit (Bld) [Volume fraction] 45.1 % Normal 42.0-54.0 [facility] Comment on above: Performed By: #### C BC #### [facility] [address] [place] [address] Dr. Vannessa Quiroga Hemoglobin (Bld) [Mass/Vol] 15.0 g/dL Normal 14.0-18.0 [facility] Comment on above: Performed By: #### C BC #### [facility] [address] [place] [address] Dr. Vannessa Quiroga IG # 0.07 10e3/ul Critically high 0.00-0.03 [facility] Comment on above: Performed By: #### C BC #### [facility] [address] [place] [address] Dr. Vannessa Quiroga IG % 1.3 % Critically high 0.0-0.5 [facility] Comment on above: Performed By: #### C BC #### [facility] [address] [place] [address] Dr. Vannessa Quiroga LYMPH # 0.9 103/ul Critically low 1.2-3.8 [facility] Comment on above: Performed By: #### C BC #### [facility] [address] [place] [address] Dr. Vannessa Quiroga Lymphocytes/100 WBC (Bld) 17.2 % Critically low 20.5-60.0 [facility] Comment on above: Performed By: #### C BC #### [facility] [address] [place] [address] Dr. Vannessa Quiroga MANUAL DIFF REQ NO Normal [facility] Comment on above: Performed By: #### C BC #### [facility] [address] [place] [address] Dr. Vannessa Quiroga MCH (RBC) [Entitic mass] 31.3 pg Normal 25.9-34.0 [facility] Comment on above: Performed By: #### C BC #### [facility] [address] [place] [address] Dr. Vannessa Quiroga MCHC (RBC) [Mass/Vol] 33.3 g/dL Normal 29.9-35.2 [facility] Comment on above: Performed By: #### C BC #### [facility] [address] [place] [address] Dr. Vannessa Quiroga MCV (RBC) [Entitic vol] 94.2 fL Critically high 80.0-94.0 [facility] Comment on above: Performed By: #### C BC #### [facility] [address] [place] [address] Dr. Vannessa Quiroga MONO # 0.6 103/ul Normal 0.3-0.8 [facility] Comment on above: Performed By: #### C BC #### [facility] [address] [place] [address] Dr. Vannessa Quiroga Monocytes/100 WBC (Bld) 11.2 % Normal 1.7-12.0 [facility] Comment on above: Performed By: #### C BC #### [facility] [address] [place] [address] Dr. Vannessa Quiroga NEUT # 3.5 103/ul Normal 1.4-6.5 [facility] Comment on above: Performed By: #### C BC #### [facility] [address] [place] [address] Dr. Vannessa Quiroga Neutrophils/100 WBC (Bld) 65.8 % Normal 43.0-75.0 [facility] Comment on above: Performed By: #### C BC #### [facility] [address] [address] [address] Vannessa Quiroga Platelet mean volume (Bld) [Entitic vol] 9.9 fL Normal 9.5-13.5 [facility] Comment on above: Performed By: #### C BC #### [facility] [address] [address] [address] Vannessa Quiroga PLT 175 103/ul Normal 150-450 [facility] Comment on above: Performed By: #### C BC #### [facility] [address] [address] [address] Vannessa Quiroga RBC 4.79 106/ul Normal 4.70-6.10 [facility] Comment on above: Performed By: #### C BC #### [facility] [address] [place] [address] Dr. Vannessa Quiroga WBC 5.4 103/ul Normal 4.0-11.0 [facility] Comment on above: Performed By: #### C BC #### [facility] [address] [place] [address] Dr. Vannessa Quiroga FREE T3on 10-21-2021 FREE T3 2.13 pg/mlL Critically low 2.18-3.98 [facility] Comment on above: Performed By: #### T SH, CMP, LIPID, FT3, T4 #### [facility] [address] [address] [address] Vannessa Quiroga GLYCOHEMOGLOBIN A1Con 2021 ADA RECOMMENDATION SEE BELOW Normal [facility] Comment on above: Result Comment: ADA RECOMMENDED LIMIT 4.0 - 6.0 ADA THERAPEUTIC TARGET < 7.0 ACTION SUGGESTED > 7.0 Performed By: #### A 1C #### [facility] [address] [address] [address] Vannessa Quiroga Glucose [Mass/Vol] 120 mg/dL Normal [facility] Comment on above: Performed By: #### A 1C #### [facility] [address] [place] [address] Dr. Vannessa Quiroga HbA1c (Bld) [Mass fraction] 5.8 % Normal 4.5-6.2 [facility] Comment on above: Performed By: #### A 1C #### [facility] [address] [address] [address] Vannessa Quiroga LIPID PROFILEon 10-21-2021 CHOL-HDL RATIO NORM SEE BELOW Normal [facility] Comment on above: Result Comment: 3.3 - 4.4 LOW RISK 4.4 - 7.1 AVERAGE RISK 7.1 - 11.0 MODERATE RISK >11.0 HIGH RISK Performed By: #### T SH, CMP, LIPID, FT3, T4 #### [facility] [address] [address] [address] Vannessa Quiroga Cholesterol [Mass/Vol] 172 mg/dL Normal <=200 [facility] Comment on above: Performed By: #### T SH, CMP, LIPID, FT3, T4 #### [facility] [address] [address] [address] Vannessa Quiroga Cholesterol in HDL [Mass/Vol] 30 mg/dL Critically low 40-60 [facility] Comment on above: Performed By: #### T SH, CMP, LIPID, FT3, T4 #### [facility] [address] [address] [address] Vannessa Quiroga Cholesterol in LDL [Mass/Vol] 102.2 mg/dL Normal [facility] Comment on above: Performed By: #### T SH, CMP, LIPID, FT3, T4 #### [facility] [address] [address] [address] Vannessa Quiroga Cholesterol.total/Ch olesterol in HDL [Mass ratio] 5.7 {ratio} Normal [facility] Comment on above: Performed By: #### T SH, CMP, LIPID, FT3, T4 #### [facility] [address] [address] [address] Vannessa Quiroga HDL NORMAL > or = 60 mg/dl - LO W CARDIOVASCULAR RISK <40 mg/dl - HIGH CARDIOVASCULAR RISK Normal [facility] Comment on above: Performed By: #### T SH, CMP, LIPID, FT3, T4 #### [facility] [address] [place] [address] Dr. Vannessa Quiroga LDL CALC NORMAL SEE BELOW Normal [facility] Comment on above: Result Comment: <100 mg/dl OPTIMAL 100 - 129 mg/dl NEAR OR ABOVE OPTIMAL 130 - 159 mg/dl BORDERLINE HIGH 160 - 189 mg/dl HIGH >190 mg/dl VERY HIGH Performed By: #### T SH, CMP, LIPID, FT3, T4 #### [facility] [address] [address] [address] Vannessa Quiroga Triglyceride [Mass/Vol] 199 mg/dL Critically high <=150 [facility] Comment on above: Performed By: #### T SH, CMP, LIPID, FT3, T4 #### [facility] [address]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 Performing Clinician Start: 09-05-2023 Follow-up visit Follow-up EDWIGE DELANEY Start: 10-20-[address] ALEXEY MICHELLE Comment on above: Performed By: #### PSAD #### [facility] [address] [place] [address] Dr. Vannessa Quiroga Start: 01-08-2020 Cystoscopy Paula DUNCAN Start: 10-14-2016 Brachytherapy Paula DUNCAN Start: 06-29-2016 Transrectal biopsy of prostate using ultrasound guidance Paula DUNCAN Colonoscopy Paula DUNCAN Cystoscopy Paula DUNCAN Esophagogastroduodenoscopy P jannienolan DUNCAN Laser assisted in si tu keratomileusis Paula DUNCAN Repair of musculoten dinous cuff of shoulder Paula DUNCAN Repair of spleen Paula ELROY ECHEVERRIA Total orchidectomy Paula Shweta CAPONE Transrectal biopsy o f prostate using ultrasound guidance Paula DUNCAN Transurethral prostatectomy Paula DUNCAN Plan of Treatment Date Care Activity Detail Author Start: 02-07-2025 Adult BMI Screening Adult BMI Screen ing [facility] Start: 02-07-2025 Tobacco Screening Tobacco Screening [facility] [employer] [facility] Start: 08-20-2024 End: 08-20-2024 Patient encounter procedure 08/20/2024 11:45 AM EDT Office Visit [facility] [address] [place] [address] Edwige Delaney MD [address] [facility] [address] [place] [address] [facility] Start: 04-30-2024 End: 04-30-2024 Patient encounter procedure 04/30/2024 3:00 PM EST Office Visit [facility] [address] [place] [address] [place] [address] [place] [address] [facility] Start: 04-18-2024 End: 04-18-2025 XR Chest PA and Lateral X-ray chest 2 views Imaging Routine Chronic obstructive pulmonary disease, unspecified COPD type (CMS-HCC) SOB (shortness of breath) Emphysema ([facility]-HCC) Expected: 04/18/2024, Expires: 04/18/2025 [facility] Work Phone: Comment on above: Expected: 04/18/2024 , Expires: 04/18/2025 Start: 04-04-2024 Adult BMI Screening Adult BMI Screen ing [facility] Start: 04-04-2024 Tobacco Screening Tobacco Screening [facility] Start: 01-08-2024 COVID-19 Vaccine ( season) COVID-19 Vaccine () [facility] Start: 01-08-2024 COVID-19 Vaccine ( season) COVID-19 Vaccine ( season) [facility] Start: 01-08-2024 Influenza vaccination Influenza Vacc ine [facility] Start: 10-17-2023 End: 10-17-2023 Patient encounter procedure 10/17/2023 2:30 PM EDT Office Visit [facility] [address] [place] [id number] Edwige Delaney MD [address] [address] [facility] Start: 04-06-2023 COVID-19 Vaccine ( season) COVID-19 Vaccine ( season) [facility] Start: 12-16-2003 Fall Risk Screening Fall Risk Screen ing [facility] Start: 1957 Administration of varicella zoster vaccine Zoster (Shingles) Vaccine (1 of 2) [facility] Start: 1957 DTaP,Tdap and Td Vac cines (1 - Tdap) DTaP,Tdap and Td Vaccines (1 - Tdap) [facility] Start: 1956 Adult BMI Follow Up Plan Adult BMI Follow Up Plan [facility] Start: 1950 Depression Screening Depression Scre ening [facility] Start: 1938 Medicare Annual Well ness Visit Medicare Annual Wellness Visit [facility] Immunizations Immunization Date Immunization Notes Care Provider Fa cility 02-09-2023 Covid-19, Mrna, Lnp- s, Pf,priya-sucrose,30 Mcg/0.3ml Fall23 Ban Bill PHP SOFTWARE ENGINEER-AUTOMATION CONTROLS SPECIALIST Work Phone: [facility] 02-09-2023 Influenza Vaccine, Quadrivalent, Adjuvanted Ban Bill PHP SOFTWARE ENGINEER-AUTOMATION CONTROLS SPECIALIST Work Phone: [facility] 02-09-2023 RSV, bivalent, prote in subunit RSVpreF, diluent reconstituted, 0.5 mL, PF Ban Bill PHP SOFTWARE ENGINEER-AUTOMATION CONTROLS SPECIALIST Work Phone: [facility] 02-09-2023 influenza virus vacc ine, unspecified formulation Ban Bill PHP SOFTWARE ENGINEER-AUTOMATION CONTROLS SPECIALIST Work Phone: [facility] 03-01-2022 influenza, injectabl e, quadrivalent, preservative free Ban Bill PHP SOFTWARE ENGINEER-AUTOMATION CONTROLS SPECIALIST Work Phone: [facility] 03-02-2021 influenza, high dose seasonal, preservative-free aBn Bill PHP SOFTWARE ENGINEER-AUTOMATION CONTROLS SPECIALIST Work Phone: [facility] 08-25-2020 COVID-19 Vaccine, vector-nr, rS-Ad26, PF, 0.5mL Banharpreet Bill PHP SOFTWARE ENGINEER-AUTOMATION CONTROLS SPECIALIST Work Phone: [facility] 01-30-2020 Influenza, High-dose , Quadrivalent Ban Bill PHP SOFTWARE ENGINEER-AUTOMATION CONTROLS SPECIALIST Work Phone: [facility] 01-11-2018 influenza, high dose seasonal, preservative-free Ban Bill PHP SOFTWARE ENGINEER-AUTOMATION CONTROLS SPECIALIST Work Phone: [facility] 03-16-2017 pneumococcal conjuga te vaccine, 13 valent Ban Bill PHP SOFTWARE ENGINEER-AUTOMATION CONTROLS SPECIALIST Work Phone: [facility] 03-09-2017 influenza virus vacc ine, unspecified formulation Ban Bill PHP SOFTWARE ENGINEER-AUTOMATION CONTROLS SPECIALIST Work Phone: [facility] 04-08-2016 pneumococcal polysaccharide vaccine, 23 valent Ban Bill PHP SOFTWARE ENGINEER-AUTOMATION CONTROLS SPECIALIST Work Phone: [facility] 02-07-2016 influenza, injectabl e, quadrivalent, preservative free Ban Bill PHP SOFTWARE ENGINEER-AUTOMATION CONTROLS SPECIALIST Work Phone: [facility] 01-27-2016 influenza, seasonal, injectable, preservative free Ban Bill PHP SOFTWARE ENGINEER-AUTOMATION CONTROLS SPECIALIST Work Phone: [facility] 03-21-2015 pneumococcal conjuga te vaccine, 13 valent Ban Bill PHP SOFTWARE ENGINEER-AUTOMATION CONTROLS SPECIALIST Work Phone: [facility] 02-04-2015 influenza, seasonal, injectable Ban Bill PHP SOFTWARE ENGINEER-AUTOMATION CONTROLS SPECIALIST Work Phone: [facility] 02-19-2014 influenza, seasonal, injectable Ban Bill PHP SOFTWARE ENGINEER-AUTOMATION CONTROLS SPECIALIST Work Phone: [facility] 03-14-2013 influenza virus vacc ine, whole virus Ban Bill PHP SOFTWARE ENGINEER-AUTOMATION CONTROLS SPECIALIST Work Phone: [facility] 02-23-2012 influenza virus vacc ine, whole virus Ban Bill PHP SOFTWARE ENGINEER-AUTOMATION CONTROLS SPECIALIST Work Phone: [facility] 02-25-2011 influenza virus vacc ine, whole virus Ban Bill PHP SOFTWARE ENGINEER-AUTOMATION CONTROLS SPECIALIST Work Phone: [facility] 11-10-2010 pneumococcal polysaccharide vaccine, 23 valent Ban Fly PHP SOFTWARE ENGINEER-AUTOMATION CONTROLS SPECIALIST Work Phone: [facility] Payers Date Payer Category Payer Medicare [facility] MEDICARE ANTHEM MEDICARE ADVANTAGE [id number] 2016-Present [phone] [address] [place] [address] [id number] 2016 Medicare HMO AN[employer] MED[employer] Member Subscriber Plan / Payer (Effective 2016-Present) Name: Michael Barahona Relation to Subscriber: Self Name: Michael Barahona Payer ID: [id number] (NAIC) Group ID: [id number] Type: Not on file Address: [address] [place] [id number] 1959 Unknown [id number] 1940 Unknown [id number] 2.16.840.1.824138.3.579.2.59 3 1938 Unknown [id number] 2.16840.1.140597.3.579.2.59 3 1938 Unknown [id number] 2.16.840.1.594515.3.579.2.59 3 1938 Unknown [id number] 2.16.840.1.927544.3.579.2.59 3 1938 Unknown [id number] 2.16.840.1.915203.3.579.2.72 7 1938 Unknown [id number] 2.16.840.1.088892.3.579.2.72 7 1938 Unknown [id number] 2.16.840.1.710654.3.579.2.12 86 1938 Unknown [id number] 2.16.840.1.530804.3.579.2.12 86 1938 Unknown [id number] 2.16.840.1.119947.3.579.2.12 86 1938 Unknown [id number] 2.16.840.1.078061.3.579.2.12 86 1938 Unknown [id number] 2.16.840.1.701543.3.579.2.12 86 1938 Unknown [id number] 2.16.840.1.437265.3.579.2.12 86 1938 Unknown [id number] 2.16.840.1.099120.3.579.2.12 86 1938 Unknown [id number] 2.16.840.1.078945.3.579.2.12 86 1938 Unknown [id number] 2.16.840.1.820558.3.579.2.12 86 1938 Unknown [id number] 2.16.840.1.025982.3.579.2.12 86 1938 Unknown [id number] 2.16.840.1.227284.3.579.2.12 86 1938 Unknown [id number] 2.16.840.1.520017.3.579.2.12 86 1938 Unknown [id number] 2.16.840.1.990976.3.579.2.12 86 1938 Unknown [id number] 2.16.840.1.016124.3.579.2.12 86 1938 Unknown [id number] 2.16.840.1.368115.3.579.2.12 86 1938 Unknown [id number] 2.16.840.1.228648.3.579.2.12 86 1938 Unknown [id number] 2.16.840.1.576358.3.579.2.12 86 1938 Unknown [id number] 2.16.840.1.470358.3.579.2.12 86 1938 Unknown [id number] 2.16.840.1.023406.3.579.2.12 86 1938 Unknown [id number] 2.16.840.1.250610.3.579.2.12 86 1938 Unknown [id number] 2.16.840.1.456742.3.579.2.12 86 1938 Unknown [id number] 2.16.840.1.537925.3.579.2.12 86 1938 Unknown [id number] 2.16.840.1.999770.3.579.2.12 86 Unknown Social History Date Type Detail Facility Start: 01-08-2020 End: 03-01-2022 Tobacco smoking status Ex-smoker (finding) [facility] Start: 06-19-2020 End: 04-04-2023 Sex Assigned At Male [facility] History of tobacco use Current smoker [facility] Start: 03-01-2022 Tobacco use and exposure Smokeless tobacco non-user [facility] Start: 04-04-2023 End: 02-08-2024 Alcohol intake Current non-drinker of alcohol (finding) [facility] Start: 06-19-2020 End: 04-04-2023 Alcohol intake [facility] Childcare Unknown [facility] Start: 1940 Sex Assigned At Not on file P [facility] Has the [employer], charming charlie, or water [employer] threatened to shut off services in your home in past 12Mo No [facility] [employer] [facility] Start: 1940 Sex assigned at Male P [facility] Start: 08-09-2023 Gender identity Identifies as male gender (finding) [facility] Start: 08-09-2023 Sexual orientation Heterosexual (fin ding) [facility] Start: 12-12-2014 Sex Male (finding) [facility] Goals Date Patient Goal Desired Activity /State Personal health goal Comment on above: Formatting of this n ote might be different from the original. Evaluation of progress towards goal: home Functional Status Date Assessment Result Facility 12-30-2023 Functional Status N/A [facility] 11-19-2022 Functional Status N/A [facility] 11-16-2021 Functional Status N/A [facility] Clinical Notes 11-16-2021 to 04-18-2024 Telephone Encounter - Rosa Elena Melendez - 04/18/2024 12:34 PM ESTTelephone Encounter - RADHA Neumann - 04/18/2024 12:34 PM ESTTelephone Encounter - RADHA Neumann - 04/18/2024 12:34 PM EST Note Date & Type Note Facility 04-18-2024 Miscellaneous Notes Pt's doctors office LVM requesting pulmonary clearance for surgery scheduled on 05/16/2024. Please call Uma back to discuss at [phone], option 3, extension [phone]. Thank you! [employer] Operator called Uma back and left voicemail requesting a return call. Uma called office back and informed her that we would call patient and try to get him in on 04/30/2024. Uma verbalized understanding and asked that we call her once he is scheduled. [employer] Operator verbalized understanding. [employer] Operator called patient and spoke with his /HIPAA, Angie, offered 3pm on 04/30/2024 for pulmonary clearance. Angie confirmed appointment date and time. [employer] Operator called Uma back and left voicemail informing her of date and time. Asked that Uma fax over the clearance request form for KW to sign off on to [phone]. Chest xray only please Order for CXR placed, hand sign writer called patient and spoke to his /HIPAA, Angie, informed her that JOSÉ would like CXR completed prior to his appointment with her on 04/30/2024, Angie verbalized understanding. [facility] Telephone encounter Note Pt's doctors office LVM requesting pulmonary clearance for surgery scheduled on 05/16/2024. Please call Uma back to discuss at [phone], option 3, extension [phone]. Thank you! [facility] Telephone encounter Note Waste[employer] Treatment Plant Operator called Uma back and left voicemail requesting a return call. [facility] 04-18-2024 Telephone encounter Note Uma called office back and informed her that we would call patient and try to get him in on 04/30/2024. Uma verbalized understanding and asked that we call her once he is scheduled. [employer] Operator verbalized understanding. [facility] 04-18-2024 Telephone encounter Note Waste[employer] Treatment [employer] Operator called patient and spoke with his /HIPAA, Angie, offered 3pm on 04/30/2024 for pulmonary clearance. Angie confirmed appointment date and time. [facility] 04-18-2024 Telephone encounter Note [employer] Operator called Uma back and left voicemail informing her of date and time. Asked that Uma fax over the clearance request form for JOSÉ to sign off on to [phone]. [facility] 04-18-2024 Telephone encounter Note Chest xray only please [facility] 04-18-2024 Telephone encounter Note Order for CXR placed, hand sign writer called patient and spoke to his /HIPAA, Angie, informed her that JOSÉ would like CXR completed prior to his appointment with her on 04/30/2024, Angie verbalized understanding. [facility] 02-08-2024 History of Present illness Narrative [facility] Follow Up CHIEF COMPLAINT: Chief Complaint Patient presents with Difficulty Swallowing Follow-up hepatic steatosis -itchy all over HISTORY OF PRESENT ILLNESS: Michael Barahona is a 83 y.o. male who has a past medical history of BPH, gastritis, COPD, COVID-19, GERD, hypothyroidism, prostate CA s/p radiation seeds, and pulmonary HTN who presents today for follow up. He was initially seen in November 2023 with complaints of intermittent postprandial vomiting, ? Dysphagia, globus sensation, early satiety, bloating, constipation, and fatty liver. He had abdominal ultrasound 09/2023 that revealed increased hepatic echotexture suggestive of diffuse hepatocellular disease, most commonly diffuse hepatic steatosis. He has normal platelets. Liver enzymes showed AST and ALT normal. ALP 34. Viral hepatitis and autoimmune markers are negative. Fibrotest with F2, moderate fibrosis. He has no family history of liver disease. He denies any alcohol consumption. No illicit drug use. He has no jaundice or dark colored urine. UGI 11/2023 showed delayed gastric emptying. However SPGES 11/2023 was normal with only 2% remaining at 4 hours. KUB was not performed. Today he reports overall feeling well. No further nausea/vomiting since starting Pantoprazole 40 mg daily. He will use Zofran prn with relief but has not needed for awhile. He has no abdominal pain. He is moving his bowels every couple days. He is having harder stools with straining. No hematochezia or melena. He is taking a stool softener prn. His main complaint is generalized pruritus. He was prescribed Atarax without significant improvement. He reportedly had a prior EGD many years ago with possible ulcer. Weight 02/08/24 0917 79.8 kg (176 lb) 02/06/24 0902 78.6 kg (173 lb 4.8 oz) 11/14/23 1126 80.7 kg (178 lb) 11/07/23 1351 80.9 kg (178 lb 6.4 oz) 10/17/23 1419 83 kg (182 lb 14.4 oz) 09/05/23 1129 84.9 kg (187 lb 1.6 oz) 08/10/23 0357 85.2 kg (187 lb 14.4 oz) 08/09/23 1948 85.2 kg (187 lb 12.8 oz) 08/09/23 1545 83.9 kg (185 lb) 04/04/23 1441 84.3 kg (185 lb 12.8 oz) 09/13/22 1131 83.9 kg (185 lb) 05/18/22 1017 81.9 kg (180 lb 9.6 oz) 03/01/22 0922 83 kg (183 lb) 08/14/21 1011 82.6 kg (182 lb) 02/16/21 1454 84.4 kg (186 lb) 10/03/20 1051 81.6 kg (180 lb) 09/29/20 1501 85.4 kg (188 lb 3.2 oz) Past Medical History: Diagnosis Date Abnormal EKG 01/21/2017 Benign prostatic hyperplasia with urinary obstruction 08/09/2023 Chronic gastritis COPD (chronic obstructive pulmonary disease) ([facility]) COPD exacerbation ([facility]) 08/09/2023 COVID-19 05/25/2020 Esophagitis GERD (gastroesophageal reflux disease) Hypothyroidism 08/09/2023 On home oxygen therapy Prostate cancer ([facility]) 07/27/2016 Pulmonary hypertension ([facility]) 01/21/2017 Shortness of breath 01/21/2017 PREVIOUS ENDOSCOPY OR X-RAY PROCEDURES: As noted in the HPI Past Surgical History: Past Surgical History: Procedure Laterality Date COLONOSCOPY HERNIA REPAIR SHOULDER SURGERY Current Medications: Current Outpatient Medications: albuterol (PROVENTIL HFA;VENTOLIN HFA) 90 mcg/actuation inhaler, Inhale 2 puffs every 6 (six) hours as needed for wheezing., Disp: , Rfl: albuterol (PROVENTIL HFA;VENTOLIN HFA) 90 mcg/actuation inhaler, Inhale 2 puffs every 6 (six) hours as needed for wheezing., Disp: 18 g, Rfl: 11 albuterol (PROVENTIL,VENTOLIN) 2.5 mg /3 mL (0.083 %) nebulizer solution, Inhale 3 mL (2.5 mg total) by nebulization every 4 (four) hours as needed for wheezing., Disp: 75 mL, Rfl: 1 ANTIOX #8/OM3/DHA/EPA/LUT/ZEAX (PRESERVISION AREDS 2, OMEGA-3, ORAL), Take 2 capsules by mouth in the morning., Disp: , Rfl: mcgsdxgugm-xbxmfuaf-apmljupenb 160-9-4.8 mcg/actuation HFA aerosol inhaler, Inhale 2 puffs in the morning and 2 puffs before bedtime., Disp: 10.7 g, Rfl: 11 gabapentin (NEURONTIN) 100 mg capsule, Take 1 capsule (100 mg total) by mouth 3 (three) times a day., Disp: , Rfl: hydrOXYzine (ATARAX) 25 mg tablet, Take 1 tablet (25 mg total) by mouth., Disp: , Rfl: levothyroxine (SYNTHROID, LEVOTHROID) 50 MCG tablet, Take 1 tablet (50 mcg total) by mouth in the morning., Disp: , Rfl: ondansetron (ZOFRAN) 4 mg tablet, Take 1 tablet (4 mg total) by mouth., Disp: , Rfl: pantoprazole (PROTONIX) 40 mg EC tablet, Take 1 tablet (40 mg total) by mouth every morning before breakfast., Disp: , Rfl: predniSONE (DELTASONE) 5 mg tablet, Take 1 tablet (5 mg total) by mouth in the morning., Disp: 90 tablet, Rfl: 0 tamsulosin (FLOMAX) 0.4 mg capsule,extended release 24hr, Take 1 capsule (0.4 mg total) by mouth in the morning and 1 capsule (0.4 mg total) before bedtime., Disp: , Rfl: CEPHalexin (KEFLEX) 500 mg capsule, Take 1 capsule (500 mg total) by mouth in the morning and 1 capsule (500 mg total) before bedtime. (Patient not taking: Reported on 02/08/2024), Disp: , Rfl: I reviewed and reconciled this patient's medication list today. The list included in this note is the most up to date list that I can attest to at this time based on the information that the patient has provided me and the electronic medical record. ALLERGIES: Patient has no known allergies. SOCIAL HISTORY: Social History Tobacco Use Smoking status: Former Smokeless tobacco: Never Vaping Use Vaping status: Never Used Substance Use Topics Alcohol use: No Alcohol/week: 0.0 standard drinks of alcohol Drug use: No FAMILY HISTORY: Family History Problem Relation Age of Onset Glaucoma Mother Cancer Mother Diabetes Father Heart disease Father ASSESSMENTS: REVIEW OF SYSTEMS: See HPI, otherwise ROS as below CONSTITUTIONAL: No significant weight change, fatigue, fever, or chills HEENT: No eye pain or painful swallowing RESPIRATORY: Shortness of breath CARDIOVASCULAR: Dyspnea on exertion; No chest pain, palpitations or edema GASTROINTESTINAL: Constipation; No abdominal pain, nausea or blood in stools GENITOURINARY: No dysuria or hematuria INTEGUMENT/BREAST: No skin rashes or skin lesions HEMATOLOGIC/LYMPHATIC: No anemia or easy bruising ALLERGIC/IMMUNOLOGIC: No seasonal allergies, itching, or hay fever ENDOCRINE: No heat/cold intolerance, no diabetes MUSCULOSKELETAL: No joint/muscle pain or arthritis NEUROLOGICAL: No headache or seizures BEHAVIOR/PSYCH: No anxiety or depression PHYSICAL EXAM: Vitals: 02/08/24 0917 BP: 155/72 Weight: 79.8 kg (176 lb) Height: 165.1 cm (5' 5 ) Body mass index is 29.29 kg/m . CONSTITUTIONAL: Alert, well developed and well-nourished. No apparent distress. present for appt. TEJON. HEAD: Normocephalic, atraumatic EYES: Pupils equal, round and reactive to light; conjunctiva pink; no scleral icterus. ENT: Oral pharynx with moist mucus membranes. LUNGS: increased work of breathing CARDIOVASCULAR: no edema ABDOMEN: Soft, distended and non-tender. SKIN: Warm and dry. No bruising or bleeding, no rashes and no jaundice. MS: Normal range of motion, moves all 4 extremities spontaneously, and ambulates without difficulty. NEURO: Oriented to person, place, and time. No focal deficits. PSYCH: Normal mood and affect. Behavior is normal. Depression Screening DATA: CBC: Lab Results Component Value Date WBC 10.2 08/10/2023 HGB 14.1 08/10/2023 HCT 41.7 08/10/2023 MCV 97 08/10/2023 RDW 14.1 08/10/2023 PLT 227 08/10/2023 CMP: Lab Results Component Value Date K 4.1 08/10/2023 CL 104 08/10/2023 CO2 21 (L) 08/10/2023 BUN 20 08/10/2023 GLU 144 (H) 08/10/2023 08/09/23 15:55 08/10/23 04:42 Total bilirubin 0.7 1.0 AST 24 21 ALT 27 27 Alkaline phosphatase 37 (L) 34 (L) 11/09/23 08:23 Barbie screen Negative Mitochondrial AB (M2) <0.1 Smooth muscle AB Negative 11/09/23 08:23 Hep A IgM Ab Non-Reactive Hepatitis B Surface Ag Negative Hep B Core IgM Ab Negative Anti HCV w/ PCR reflex Non-Reactive FibroTest Stage F2 FibroTest Interpretation moderate fibrosis IMAGING: [facility] 11/2023: Findings: Static images demonstrate activity in the stomach with emptying. No distal esophageal activity is seen. At 1 hour, there is 92% retention of activity. At 2 hours, there is 61% retention of activity. At 4 hours, there is 2% retention of activity. Impression: * Normal solid phase gastric emptying UGI 11/2023: FINDINGS: Study was compromised due to patient's [...] IMPRESSION: Delayed gastric emptying. Small bowel diverticula. Abdominal ultrasound 09/2023: Findings: Real-time sonographic evaluation abdomen performed. Pancreas [...] hepatic steatosis. Unremarkable gallbladder. No biliary dilatation. ASSESSMENT AND PLAN: Michael Barahona is a 83 y.o. male with a past medical history of BPH, gastritis, COPD, COVID-19, GERD, hypothyroidism, prostate CA s/p radiation seeds, and pulmonary HTN who presents today for follow up. He had abdominal ultrasound 09/2023 that revealed increased hepatic echotexture suggestive of diffuse hepatocellular disease, most commonly diffuse hepatic steatosis. Viral hepatitis and autoimmune markers are negative. Fibrotest with F2, moderate fibrosis. Overall he is feeling well. His main complaint is constipation and generalized pruritus. We have discussed fatty liver with importance of diet and exercise as tolerated. I have advised him to avoid sugary foods/beverages. He will continue daily PPI. I have advised him to start one capful of MiraLax daily. He will call if no improvement. Michael was seen today for difficulty swallowing and follow-up. Diagnoses and all orders for this visit: Fatty liver Gastroesophageal reflux disease, unspecified whether esophagitis present Chronic idiopathic constipation Follow up in 6 months or sooner if needed. Ban Bill, PHP SOFTWARE ENGINEER-AUTOMATION CONTROLS SPECIALIST [facility] [address] [place] [address] PH: [phone] /KAELYN Total time spent: 45 minutes Preparing to see the patient (e.g., review of tests) Obtaining and/or reviewing separately obtained history Performing a medically appropriate examination and/or evaluation Counseling and educating the patient/family/caregiver Ordering medications, tests, or procedures GILBERTO Prince 02/08/24 1225 documented in this encounter [facility] 02-08-2024 Instructions GILBERTO Prince - 02/08/2024 9:30 AM EDT PLAN: Start one capful of MiraLax daily. Reduce sugar foods, caffeine Continue Pantoprazole 40 mg daily at least 30 minutes before breakfast. Call if no improvement. Follow up in 6 months or sooner if needed. The following attachments cannot be sent through Care Everywhere.Nonalcoholic fatty liver disease ([place])documented in this encounter [facility] 12-30-2023 Hospital Discharge instructions Patient Education 12/30/2023 [...] treatment? Where to find more information The [place] Cancer Society: www.cancer.org [place] Urological Association: www.auanet.org Contact a health care [...] provider. Document Revised: 10/19/2021 Document Reviewed: 10/19/2021 [employer] Patient Education 2022 [email or web address]. Follow Up Care 11/19/2022 12:00:06 With:ALOK GARZON, Paula Isabel, URL Address: [facility] [address] [place] [address]- [phone] When: Unknown Comments:1 yr w/ PSA [facility] 12-30-2023 Note Patient Education Oncology Prostate [...] Where to find more information ? [place] Cancer Society: www.cancer.org ? [place] Urological Association: www.auanet.org Contact a health care [...] of the rectum. (more content not included)... [facility] 08-01-2023 Miscellaneous Notes Pt Angie left message, returned call left message documented in this encounter [facility] 08-01-2023 Telephone encounter Note Pt Angie left message, returned call left message [facility] 11-19-2022 Hospital Discharge instructions Patient Education 11/19/2022 [...] urethra. Follow these instructions at home: Take vxhu-hie-fbchyrm and prescription medicines only as told by [...] provider. Document Revised: 11/11/2021 Document Reviewed: 11/11/2021 Elsevier Patient Education 2022 [email or web address]. Follow Up Care 11/16/2021 14:26:07 With:ALOK GARZON, Paula Isabel, URL Address: [facility] [address] , [place] [address]- When: Unknown [facility] 11-16-2021 Hospital Discharge instructions Patient Education 11/16/2021 [...] 04/25/2006 Document Revised: 01/12/2019 Document Reviewed: 03/25/2017 [employer] Patient Education 2020 [email or web address]. 11/16/2021 14:13:15 Benign Prostatic Hyperplasia Benign Prostatic [...] urethra. Follow these instructions at home: Take nfcr-rds-sxsitzh and prescription medicines only as told by [...] 04/25/2006 Document Revised: 03/20/2019 Document Reviewed: 05/30/2017 [employer] Patient Education 2020 [employer] Follow Up Care 11/03/2020 12:25:53 With:Paula DUNCAN MD, URL Address: [facility] [address] , [place] [address]- [phone] When:Within 1 Year(s) Comments:1 year fu w PSA [facility] Evaluation + Plan note Future Appointments Appointment Date:11/19/2022 11:00:00 AM Scheduled Provider:Paula DUNCAN MD Location:[facility] Appointment Type:URO Office Visit Diagnostic Tests PendingPSA Total 11/16/21PSA Total 11/16/21 [facility] Evaluation + Plan note Future Appointments Appointment Date:11/21/2023 09:45:00 AM Scheduled Provider:Paula DUNCAN MD Location:[facility] Appointment Type:URO Office Visit Diagnostic Tests PendingPSA Total 10/08/23 [facility] Evaluation + Plan note Future Appointments Appointment Date:12/31/2024 10:45:00 AM Scheduled Provider:Paula DUNCAN MD Location:[facility] Appointment Type:URO Office Visit Diagnostic Tests PendingPSA Total 12/30/23 [facility] Evaluation note Diagnosis Fatty liver- Primary Other chronic nonalcoholic liver disease Gastroesophageal reflux disease, unspecified whether esophagitis present Chronic idiopathic constipation Unspecified constipation [facility] Diagnosis Chronic obstructive pulmonary disease, unspecified COPD type (CMS-HCC)- Primary SOB (shortness of breath) Shortness of breath Emphysema (CMS-HCC) [facility] Narrative No data available for this section [facility] [employer] InstructionsNot on filedocumented in this encounter [facility] filedocumented in this encounter [facility] No data available for this section [facility] Summary Purpose Family History No Family History Records FoundNo Family History Records FoundNo Family History Records Found No data available for this section No Family History Records FoundNo Family History Records FoundNo Family History Records Found Advance Directives No Advanced Directives Records Found Date Activated Date Inactivated Comments 08/09/2023 5:48 PM 08/10/2023 2:14 PM Additional Source Comments (unrecognized sect ion and content) No Status Records FoundNo Status Records FoundNo Status Records FoundNo Status Records FoundNo Status Records FoundNo Status Records Found INFORMATION SOURCE (unrecogn ized section and content) DATE CREATED AUTHOR 11/02/2017 [facility] DATE CREATED AUTHOR AUTHOR'S ORGANIZ ATION 05/31/2021 [facility] DATE CREATED AUTHOR AUTHOR'S ORGANIZ ATION 04/30/2022 [facility] DATE CREATED AUTHOR AUTHOR'S ORGANIZ ATION 01/01/2024 [facility] DATE CREATED AUTHOR AUTHOR'S ORGANIZ ATION 02/09/2024 [facility] DATE CREATED AUTHOR AUTHOR'S ORGANIZ ATION 04/25/2024 [facility] Care Team (unrecognized sect ion and content) 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 Start Date End Date Marzena Mccord APRN-CNP [address] [facility] [place] [address] PCP - General Family Medicine 07/18/18 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 [facility]. provides no warranty or guarantee of the accuracy or completeness of information in this document.
[2024-04-30 09:31] LABS: Basophils Absolute Auto 0.1 10^3/uL (0.0-0.1); Basophils Percent Auto 0.7 % (0.2-2.0); Eosinophils Absolute Auto 0.2 10^3/uL (0.0-0.7); Eosinophils Percent Auto 2.5 % (0.9-7.0); Hematocrit 47.5 % (42.0-54.0); Hemoglobin 16.1 g/dL (14.0-18.0); Immature Granulocytes Abs Auto 0.09 10^3/uL (0.00-0.03); Lymphocytes Absolute Auto 1.1 10^3/uL (1.2-3.8); Lymphocytes Percent Auto 11.5 % (20.5-60.0); Mean Corpuscular HGB Conc 33.9 g/dL (29.9-35.2); Mean Corpuscular Hemoglobin 32.6 pg (25.9-34.0); Mean Corpuscular Volume 96.2 fL (80.0-94.0); Mean Platelet Volume 9.9 fL (9.5-13.5); Monocytes Absolute Auto 0.8 10^3/uL (0.3-0.8); Monocytes Percent Auto 8.7 % (1.7-12.0); Neutrophils Absolute Auto 6.9 10^3/uL (1.4-6.5); Neutrophils Percent Auto 75.6 % (43.0-75.0); Platelet Count 223 10^3/uL (150-450); Red Blood Count 4.94 10^6/uL (4.70-6.10); White Blood Count 9.2 10^3/uL (4.0-11.0)
--- NOTE | 2024-04-30 09:31 | XR_ITS ---
The [address] [address] Patient Name: MICHAEL LITTLE MRN: [id number] date: 1940 Sex: M Assigned Patient Location: LAB Current Patient Location: LAB Accession/Order Number: [id number] Exam Date: 04/30/2024 10:05 Report Date: 04/30/2024 23:37 At the request of: HATTIE ISAAC Procedure: XR chest 2V EXAMINATION: XR chest 2V HISTORY: Pre Surgical Evaluation COMPARISON: XR chest 06/02/2020 FINDINGS: LUNGS: Moderate chronic interstitial changes without appreciable acute infiltrates. Round circumscribed density projecting over left lung base suspected represent nipple shadow artifact, but chronic nodule cannot be excluded. VASCULATURE: No increased pulmonary vasculature. PLEURA: No pneumothorax, effusion, or pleural thickening. CARDIAC: No cardiomegaly or cardiac silhouette abnormality. MEDIASTINUM: No visible mass or adenopathy. BONES: No fracture or visible bone lesion. OTHER: Negative. XR/XR chest 2V IMPRESSION: 1. No appreciable acute cardiopulmonary process. 2. Grossly stable chronic interstitial changes. Electronically authenticated by: JULI OWUSU Date: 04/30/2024 23:37
[2024-04-30 09:50] LABS: INR 1.06; Partial Thromboplastin Time 28.7 sec (22.3-36.2); Prothrombin Time 11.2 sec (9.0-11.6)
[2024-04-30 10:13] LABS: Anion Gap 15.2; BUN Creatinine Ratio 14.5; Calcium 9.4 mg/dL (8.5-10.1); Carbon Dioxide 26.8 mmol/L (21.0-32.0); Chloride 104 mmol/L (98-107); Estimated GFR (African America >60 (>=60 mL/min/1.73m^2); Estimated GFR (Non-African Ame >60 (>=60 mL/min/1.73m^2); Glucose 113 mg/dL (74-106); Sodium 142 mmol/L (136-145)
== END 2024-04-30 08:33 | disposition home or self-care (01) ==
PROVIDERS: PCP Nurse Practitioner Family
DX: M43.17 Spondylolisthesis, lumbosacral region (principal); M51.372 Other intervertebral disc degeneration, lumbosacral region with discogenic back pain and lower extremity pain; M48.07 Spinal stenosis, lumbosacral region; M47.26 Other spondylosis with radiculopathy, lumbar region
CPT/HCPCS: 36415; 71046; 80048; 85025; 85610; 85730; 87081

== ENCOUNTER 2024-05-01 07:33 | Outpatient (OUT) | payer MEDICARE, SELFPAY ==
--- OUTSIDE RECORDS SUMMARY | 2024-05-01 07:35 | XMS_ITS | CCD ---
Author Organization [facility]iniSy[facility] Care Team Providers Care Account Management Specialist Name Role Phone PHYSICIAN, DEFAULT Unavailable Unavailable PHYSICIAN, DEFAULT Unavailable Unavailable KENNEDY, MARZENA Ordonez Primary Care Physician VIVIANA, DR ALEXEY Rodriguez Consulting Unavailable SURI, MARZENA Primary Care Unavailable SURI, MARZENA Admitting Unavailable SURI, MARZENA Attending Unavailable SURI, MARZENA Consulting Unavailable HOY, DR KING Attending Unavailable LIDYAY, DR KING Consulting Unavailable JOSE MIGUEL, DR KING Admitting Unavailable SURI, MARZENA Primary Care Unavailable ALOK, DR MITCHELL Attending Unavailable ALOK, DR MITCHELL Consulting Unavailable ALOK, DR MITCHELL Admitting Unavailable SURI, MARZENA Primary Care Unavailable SURI, MARZENA Attending Unavailable SURI, MARZENA Primary Care Unavailable SURI, MARZENA Admitting Unavailable Suri SCREEN HANDLER-APPOINTMENT COORDINATOR, Marzena S Primary Care Provider Paula DUNCAN [...] SURI, MARZENA S Primary Care Unavailable Suri SCREEN HANDLER-APPOINTMENT COORDINATOR, Marzena S Primary Care Provider EDWIGE DELANEY Attending Unavailable EDWIGE DELANEY Referring Unavailable SURI, MARZENA S Primary Care Unavailable SURI, MARZENA S Primary Care Unavailable MARIAH LANDIS Attending Unavailable CLINTONMIGUELYANG Garry Admitting Unavailable MARTINA, ANTHONY Attending Unavailable ANTHONY MACK Referring Unavailable SURI, [...] Drug Class(es) Dates Sig (Normalized) Sig (Original) [id number] 200 actuat albuterol 0.09 mg/actuat metered dose inhaler (13 sources) beta2-Adrenergic Agonist Start: 09-07-2023 take 2 puff(s) by inhalation every six hours as needed for wheezing albuterol (PROVENTIL HFA;VENTOLIN HFA) 90 mcg/actuation inhaler Indications: COPD with exacerbation ([facility]) Inhale 2 puffs every 6 (six) hours as needed for wheezing. 18 g 11 09/07/2023 Active Start: 08-10-2023 take 3 mL by inhalat ion every four hours as needed for wheezing albuterol (PROVENTIL,VENTOLIN) 2.5 mg /3 mL (0.083 %) nebulizer solution Indications: COPD exacerbation ([facility]) Inhale 3 mL (2.5 mg total) by [...] (six) hours as needed for wheezing. Active Budesonide / formoterol (1 source) Corticosteroid, beta2-Adrenergic Agonist Start: 11-30-2021 take 2 puff(s) by inhalation in the morning budesonide-formoteroL (SYMBICORT) 160-4.5 mcg/actuation inhaler Indications: Chronic obstructive pulmonary disease, unspecified COPD type ([facility]) Inhale 2 puffs in the morning and 2 puffs before bedtime. 10.2 g 12 11/30/2021 Active 120 actuat budesonide 0.16 mg/actuat / formoterol fumarate 0.0048 mg/actuat / glycopyrrolate 0.009 mg/actuat metered dose inhaler (4 sources) Corticosteroid, beta2-Adrenergic Agonist Start: 01-02-2024 End: 04-30-2024 take 2 puff(s) by inhalation in the morning prfapqzxqr-lugzakam-rjd moterol 160-9-4.8 mcg/actuation HFA aerosol inhaler Indications: Chronic obstructive pulmonary disease, unspecified COPD type ([facility]) Inhale 2 puffs in the morning and 2 puffs before bedtime. 10.7 g 5 04/30/2024 Active calcium carbonate 500 mg chewable tablet [...] 0 Active gabapentin 100 mg oral capsule (5 sources) Anti-epileptic Agent Start: 12-30-2023 gabapentin 100 mg Cap 100 mg = 1 cap(s), Refills(s) 0 Start Date: 12/30/23 Status: Ordered Start: 01-08-2023 take 1 capsule by mo uth once daily at bedtime gabapentin (NEURONTIN) 100 mg capsule TAKE 1 CAPSULE BY MOUTH EVERY DAY AT BEDTIME 0 01/08/2023 Active take 1 capsule by mo uth three times daily gabapentin (NEURONTIN) 100 mg capsule Take 1 capsule (100 mg total) by mouth 3 (three) times a day. Active hydrOXYzine hydrochloride 25 mg oral tablet (3 sources) Antihistamine hydrOXYzine (VANESSA RAX) 25 mg tablet Take 1 tablet (25 mg total) by mouth. Active levothyroxine sodium 0.05 mg oral tablet (7 sources) l-Thyroxine Start: 11-19-2022 Euthyrox 50 mcg [...] by mouth in the morning. 0 Active pantoprazole 40 mg delayed release oral tablet (3 sources) Proton Pump Inhibitor Start: 4 take 1 tablet by mouth once daily before breakfast pantoprazole (PROTONIX) 40 mg EC tablet Take 1 tablet (40 mg total) by mouth every morning before breakfast. 01/23/2024 Active predniSONE 5 mg oral tablet (4 sources) Start: 4 take 1 tablet by mouth in the [...] Active Start: 02-25-2023 take 1 tablet by [facility] in the morning predniSONE (DELTASONE) 5 mg tablet Take 1 tablet (5 mg total) by mouth in the morning. 30 tablet 5 02/25/2023 Active tamsulosin hydrochloride 0.4 mg oral capsule (7 sources) alpha-Adrenergic Dipika Start: 09-14-2023 take 1 capsule by mouth twice daily tamsulosin 0.4 mg Cap 0.4 mg = 1 cap(s), Oral, BID, # 180 cap(s), Refills(s) 3, Pharmacy: [facility], 165, cm, 11/19/22 11:43:00 EDT, Height/Length Dosing, 82, kg, 11/19/22 11:43:00 EDT, Weight Dosing Start Date: 09/14/23 Status: Ordered Start: 11-16-2021 take 1 capsule by [facility] twice daily tamsulosin 0.4 mg Cap 0.4 mg = 1 cap(s), Oral, BID, # 180 cap(s), Refills(s) 3, Pharmacy: [facility], 165, cm, 11/16/21 13:41:00 EDT, Height/Length Dosing, 80, kg, 11/16/21 13:41:00 EDT, Weight Dosing Start Date: 11/16/21 Status: Ordered take 1 capsule by [facility] every twenty-four hours in the morning, [...] Refills(s) 0 Start Date: 11/19/22 Status: Ordered Completed/Discontinued Medications Medication Drug Class(es) Dates Sig (Normalized) Sig (Original) ANTIOX #8/OM3/DHA/EPA/LUT /ZEAX (PRESERVISION AREDS 2, OMEGA-3, ORAL) (4 sources) End: 04-30-2024 take 2 capsules by mouth in the morning ANTIOX #8/OM3/DHA/EPA/LUT/ ZEAX (PRESERVISION AREDS 2, OMEGA-3, ORAL) Take 2 capsules by mouth in the morning. 04/30/2024 Discontinued take 2 capsules by m outh in the morning ANTIOX #8/OM3/DHA/EPA/LUT/ZEAX (PRESERVI GERBER AREDS 2, OMEGA-3, ORAL) Take 2 capsules by mouth in the morning. Active take 2 capsules by m outh twice daily ANTIOX #8/OM3/DHA/EPA/LUT/ZEAX (PRESERVI GERBER AREDS 2, OMEGA-3, ORAL) Take 2 capsules by mouth 2 (two) times a day. 0 Active cephalexin 500 mg oral capsule (3 sources) Cephalosporin Antibacterial Start: 12-27-2023 End: 04-30-2024 take 1 capsule by mouth in the morning, then take 1 capsule by mouth at bedtime CEPHalexin (KEFLEX) 500 mg capsule Take 1 capsule (500 mg total) by mouth in the morning and 1 capsule (500 mg total) before bedtime. 12/27/2023 04/30/2024 Discontinued ondansetron 4 mg oral tablet (3 sources) Serotonin-3 Receptor Antagonist Start: 01-23-2024 End: 04-30-2024 ondansetron (ZOFRAN) 4 mg tablet Take 1 tablet (4 mg total) by mouth. 01/23/2024 04/30/2024 Discontinued Problems Active Problems Problem Classification Problem Date Documented Da te Episodic/Chronic Cancer of prostate (4 sources) Malignant tumor of prostate; Translations: [Malignant neoplasm of prostate] Onset: 07-27-2016 02-28-2017 Chronic Cancer of prostate (10 sources) Personal history of malignant neoplasm of prostate; Translations: [History of malignant neoplasm of prostate] Onset: 10-20-2021 Episodic Chronic obstructive pulmonary disease and bronchiectasis (20 sources) Chronic obstructive lung disease; Translations: [Pulmonary [...] [Nocturia] Onset: 10-22-2021 Episodic Hyperplasia of prostate (9 sources) Benign prostatic hypertrophy with outflow obstruction; Translations: [Benign prostatic hyperplasia with lower urinary tract symptoms] Onset: 10-22-2021 02-16-2019 Chronic Osteoarthritis (1 source) Unspecified osteoarthritis, unspecified site; Translations: [UNSPECIFIED OSTEOARTHRITIS UNS SITE] Onset: 12-31-2021 Chronic Other aftercare (1 source) Long-term current use of systemic steroid; Translations: [rodent exterminator (current) use of systemic steroids] 04-30-2024 Episodic Other diseases of kidney and ureters (1 [...] of epididymis 02-07-2019 Episodic Pulmonary heart disease (4 sources) Pulmonary hypertension; Translations: [Pulmonary hypertension, unspecified] Onset: 01-21-2017 07-20-2018 Chronic Respiratory failure; insufficiency; arrest (adult) (2 sources) Chronic respiratory failure with hypoxia; Translations: [Chronic respiratory failure with hypoxia] Onset: 10-17-2023 Chronic Screening and history of mental health and substance abuse codes (3 sources) Ex-smoker 01-08-2020 Episodic Thyroid disorders (4 sources) Hypothyroidism, unspecified; Translations: [Hypothyroidism] Onset: 10-22-2021 [...] 11-07-2023 Episodic Other aftercare (1 source) Other rodent exterminator (current) drug therapy; Translations: [OTH GROUP HOME CURRENT DRUG THERAPY] Onset: 10-22-2021 Episodic Other gastrointestinal disorders (1 source) Other constipation; Translations: [Other constipation] Onset: 11-07-2023 Episodic Other gastrointestinal disorders (1 source) Other dysphagia; Translations: [Other dysphagia] Onset: 11-24-2023 Episodic Other lower respiratory disease (7 sources) Dyspnea; Translations: [Shortness of breath] Onset: [...] conditions (not mental disorders or infectious disease) (7 sources) Encounter for screening for malignant neoplasm [...] Chronic obstructive pulmonary disease, unspecified COPD type (CMS-HCC); SOB (shortness of breath); Emphysema (CMS-HCC) Comparison: 08/09/23. * No pulmonary edema or consolidation. Mild interstitial changes and scarring. Stable heart size. Degenerative changes of the thoracic spine. Postoperative changes with surgical fixation of the left proximal humerus. Severe left glenohumeral degenerative changes. Finalized by Maciel Pinto MD on 04/23/2024 1:45 PM Normal [facility] Urology Office/Clinic Noteon 12-30-2023 Urology Office/Clinic Note [...] <0.13 11/17/23 - <0.13 TRUS/bx 06/29/16 - [place] 7 (3+4) x1 core, 22% involvement. [place] 6 (3+3) x1 core, 3% involvement. Brachytherapy [...] URL [facility] [address], [place] [address]- [phone] Additional Instructions: 1 yr w/ PSA Patient Education Prostate Cancer Screening Heather Hubbard, personally scribed for Dr. Duncan on 12/30/2023 [...] Primary malignant neoplasm of lung: Mother. Normal [facility] Comment on above: Result Comment: Elec tronically Signed By: Paula DUNCAN MD\.br\Date and Time Signed: 12/30/23 12:03 EDT\.br\Electronically Co-Signed By: Heather Valadez\.br\Date and Time Co-Signed: 12/30/23 11:59 EDT ACUTE HEPATITIS PANELon 07-0 ANTI HCV W/PCR REFLX Non-Reactive Normal NRCT [facility] Comment on above: Result Comment: If recent infection suspected, recommend repeat testing (>2 months). Hsxcou-vq-wgixjh ratio is <0.80. Performed By: #### A , 68732-9 ####[facility] ([id number])[address], [address] [place] [address]#### 08458-1, 06123-1, 98682-6 ####[facility] ([id number])[address] [place] [address] 69728 HEPATITIS A IGM Non-Reactive Normal NRCT [facility] Comment on above: Performed By: #### A HP, 08785-0 ####[facility] ([id number])[address], [address] [place] [address]#### 75114-6, 64748-8, 89497-6 ####[facility] ([id number])[address] [place] [address] 34297 HEPATITIS B CORE IGM Negative Normal NEG [facility] Comment on above: Performed By: #### A , 34602-8 ####[facility] ([id number])[address], [address] [place] [address]71#### 73369-9, 52065-1, 93982-1 ####[facility] ([id number])[address] [place] [address] 10871 HEPATITIS B SURF AG Negative Normal NEG [facility] Comment on above: Performed By: #### A HP, 51063-7 ####[facility] ([id number])[address], [address] [place] [address]#### 81268-4, 81898-7, 47890-0 ####[facility] ([id number])[address] [place] [address] 03904 FL UGI WITH ESOPHAGUSon 07-0 3-2023 FL UGI WITH ESOPHAGUS FL UGI WITH [...] White MD on 11/09/2023 10:09 AM Normal [facility] HCV FibroSURE panelon 2023 ActiTest Grade A0 Normal [facility] Comment on above: Performed By: #### C BUDDY WISE, 15817-8, 47502-3, 02043-2, 45872-2, 84965-0, PINR, 03722-3 #### [facility] ([id number]) [address] [place] [address] ActiTest Interpretation no activity Normal [facility] Comment on above: Result Comment: NOTE ActiTest estimates necroinflammatory activity ActiTest Score Grade Interpretation 0.00-0.17 A0 no activity 0.17-0.29 A0-A1 no activity 0.29-0.36 A1 minimal activity 0.36-0.52 A1-A2 minimal activity 0.52-0.60 A2 significant activity 0.60-0.62 A2-A3 significant activity 0.62-1.00 A3 severe activity Performed By: #### C BUDDY WISE, 63510-2, 99337-2, 58179-3, 21250-0, 45240-9, PINR, 17983-9 #### [facility] ([id number]) [address] [place] [address] 70608 ActiTest Score 0.11 Normal [facility] Comment on above: Performed By: #### C BCA, CMP, 96495-1, 89835-1, 88225-6, 90586-6, 92193-9, PINR, 24607-7 #### [facility] ([id number]) [address] [place] [address] 05579 Fiehy-6-Gfxbrevwlbbb n, S 198 mg/dL Normal 100 - 280 [facility] Comment on above: Performed By: #### C BCA, CMP, 23832-9, 61590-5, 33960-3, 12417-2, 57253-0, PINR, 70996-3 #### [facility] ([id number]) [address] [place] [address] 40425 ALT [Catalytic activity/Vol] 20 U/L Normal 7-55 [facility] Comment on above: Performed By: #### C BCA, CMP, 52692-1, 02283-8, 37455-1, 84985-1, 04047-6, PINR, 08060-5 #### [facility] ([id number]) [address] [place] [address] 60410 Amylase [Catalytic activity/Vol] 12 U/L Normal 8 - 61 [facility] Comment on above: Performed By: #### C BCA, CMP, 34035-2, 88110-9, 18025-0, 90488-9, 20402-3, PINR, 01448-2 #### [facility] ([id number]) [address] [place] [address] 77139 Apolipoprotein A1, S 109 mg/dL Low >=120 [facility] Comment on above: Performed By: #### C BCA, CMP, 56905-8, 33924-4, 99343-9, 86279-1, 95985-8, PINR, 89064-8 #### [facility] ([id number]) [address] [place] [address] 11727 Bilirubin [Mass/Vol] 0.7 mg/dL Normal 0.0 - 1.2 [facility] Comment on above: Result Comment: NOTE Test Performed by: [facility] [address] [place] [address] [employer] Sales Representative: Rosendo Gerardo Ph.D.; CLIA# [id number] Test Performed by: [facility] [address] [place] [address] [employer] Sales Representative: Rosendo Gerardo Ph.D.; CLIA# [id number] Performed By: #### C BCA, CMP, 09380-5, 43811-6, 15915-7, 96859-4, 80935-8, PINR, 53773-1 #### [facility] ([id number]) [address] [place] [address] [employer] Serial Number [id number] Normal [facility] Comment on above: Performed By: #### C BCA, CMP, 56753-0, 79917-5, 83272-1, 66596-6, 12355-8, PINR, 18238-4 #### [facility] ([id number]) [address] [place] [address] 47183 FibroTest Interpretation moderate fibrosis Normal [facility] Comment on above: Result Comment: NOTE FibroTest estimates liver fibrosis FibroTest Score Stage Interpretation 0.00-0.21 F0 no fibrosis 0.21-0.27 F0-F1 no fibrosis 0.27-0.31 F1 minimal fibrosis 0.31-0.48 F1-F2 minimal fibrosis 0.48-0.58 F2 moderate fibrosis 0.58-0.72 F3 advanced fibrosis 0.72-0.74 F3-F4 advanced fibrosis 0.74-1.00 F4 severe fibrosis (Cirrhosis) Performed By: #### C BCA, CMP, 84996-0, 91430-4, 61423-2, 43586-5, 65666-7, PINR, 00304-0 #### [facility] ([id number]) [address] [facility], [place] [address] FibroTest Score 0.50 Normal [facility] Comment on above: Performed By: #### C BCA, CMP, 56081-9, 41649-0, 79498-4, 10694-2, 23638-3, PINR, 62599-7 #### [facility] ([id number]) [address] [facility], [place] [address] FibroTest Stage F2 Normal [facility] Comment on above: Performed By: #### C BCA, CMP, 01016-6, 19321-5, 07754-5, 94799-2, 62331-6, PINR, 78922-7 #### [facility] ([id number]) [address] [facility], [place] [address] FibroTest-ActiTest Comment See Note Normal [facility] Comment on above: Result Comment: NOTE The reliability of results is dependent on compliance with the preanalytical and analytical conditions recommended by [employer]. The tests have to be deferred for: [...] developed and its performance characteristics determined by [facility] in a manner consistent with CLIA requirements. This test has not been cleared or approved by the U.S. Food and Drug Administration. Performed By: #### C BCA, CMP, 50592-8, 37678-6, 44021-5, 50237-3, 47216-7, PINR, 14023-1 #### [facility] ([id number]) [address] [place] [address] 95345 Haptoglobin, S 127 mg/dL Normal 30 - 200 [facility] Comment on above: Performed By: #### C BCA, CMP, 62935-8, 35448-0, 71702-4, 17070-9, 05970-5, PINR, 77385-6 #### [facility] ([id number]) [address] [place] [address] 97887 Mitochondria M2 Ab IA Qn (S) on 11-09-2023 Mitochondrial Ab (M2) <0.1 Normal <0.1 (Negative) [facility] Comment on above: Result Comment: NOTE Test Performed by: [facility] [address] [place] [address] [employer] Sales Representative: Rosendo Gerardo Ph.D.; CLIA# [id number] Performed By: #### C BCA, CMP, 14314-0, 72618-8, 67493-9, 40327-2, 41676-2, PINR, 60396-8 #### [facility] ([id number]) [address] [place] [address] 08909 Nuclear Ab IA Ql (S)on 11-08 BARBIE Screen w/reflex Negative Normal NEG [facility] Comment on above: Result Comment: Testing performed using multiplex flow immunoassay. Eleven different antigens associated with systemic autoimmune diseases (dsDNA,Sm,Sm/GOLF BALL MARKER,GOLF BALL MARKER,Chromatin, SSA,SSB,Diane-1,Scl70,Ribo P,Centromere B) are included in this screening test. Performed By: #### A , 83434-0 ####[facility] ([id number])[address] [facility], [address] [place] [address]#### 30279-1, 39212-0, 61421-3 ####[facility] ([id number])[address] [place] [address] 63795 Smooth muscle Ab IF Ql (S)on 11-09-2023 Smooth Muscle Ab Negative Normal Negative [facility] Comment on above: Result Comment: NOTE Negative: No further testing will be performed ADDITIONAL INFORMATION This test was developed and its performance characteristics determined by [facility] in a manner consistent with CLIA requirements. This test has not been cleared or approved by the U.S. Food and Drug Administration. Test Performed by: [facility] - [address] [address] [employer] Sales Representative: Rosendo Gerardo Ph.D.; CLIA# [id number] Performed By: #### C BCA, CMP, 12829-1, 52731-2, 22813-8, 11359-4, 71348-4, PINR, 42110-1 #### [facility] ([id number]) [address] [place] [address] CHEST WO CONTon CT CHEST WO [...] Miki Gray MD on 10/31/2023 10:44 AM I, Calos Amaya MD have personally reviewed the image(s) and agree with and/or edited the report Finalized by Calos Amaya MD on 10/31/2023 11:13 AM Normal [facility] US ABDOMEN LMTDon 10-01-2023 US [...] Reilly MD on 10/01/2023 8:35 AM Normal [facility] CBC AND AUTO DIFFon 08-10-19 ABSOLUTE BASOPHIL 0.0 X10E9/L Normal 0.0-0.2 [facility] Comment on above: Performed By: #### C BCA, CMP, 58857-2 ####[facility] ([id number])[address] [place] [address] ABSOLUTE NEUTROPHIL 9.7 X10E9/L High 1.5-6.6 [facility] Comment on above: Performed By: #### Sarah WISE CMP, ####[facility] ([id number])[address] [place] [address] 40285 Basophils/100 WBC (Bld) 0.2 % Normal [facility] Comment on above: Performed By: #### Sarah WISE CMP, ####[facility] ([id number])[address] [place] [address] 93715 Eosinophils (Bld) [#/Vol] 0.0 10*3/uL Normal 0.0-0.4 [facility] Comment on above: Performed By: #### Sarah WISE CMP, ####[facility] ([id number])[address] [place] [address] 53712 Eosinophils/100 WBC (Bld) 0.0 % Normal [facility] Comment on above: Performed By: #### Sarah WISE CMP, ####[facility] ([id number])[address] [place] [address] 82402 Erythrocyte distribution width (RBC) [Ratio] 14.1 % Normal 11.5-15.0 [facility] Comment on above: Performed By: #### Sarah WISE CMP, ####[facility] ([id number])[address] [place] [address] 97226 Hematocrit (Bld) [Volume fraction] 41.7 % Normal 39-49 [facility] Comment on above: Performed By: #### Sarah WISE CMP, ####[facility] ([id number])[address] [place] [address] 40323 Hemoglobin (Bld) [Mass/Vol] 14.1 g/dL Normal 13.0-17.0 [facility] Comment on above: Performed By: #### C BUDDY WISE, ####[facility] ([id number])[address] [place] [address] 37791 Lymphocytes (Bld) [#/Vol] 0.4 10*3/uL Low 1.0-3.5 [facility] Comment on above: Performed By: #### Sarah WISE CMP, ####[facility] ([id number])[address] [place] [address] 85269 Lymphocytes/100 WBC (Bld) 3.4 % Normal [facility] Comment on above: Performed By: #### Sarah WISE CMP, ####[facility] ([id number])[address] [place] [address] 98100 MCH (RBC) [Entitic mass] 33.0 pg Normal 27-34 [facility] Comment on above: Performed By: #### Sarah WISE [facility], ####[facility] ([id number])[address] [place] [address] 46151 MCHC (RBC) [Mass/Vol] 33.9 g/dL Normal 32-36 [facility] Comment on above: Performed By: #### Sarah WISE CMP, ####[facility] ([id number])[address] [place] [address] 41650 MCV (RBC) [Entitic vol] 97 fL Normal 80-100 [facility] Comment on above: Performed By: #### Sarah WISE CMP, ####[facility] ([id number])[address] [place] [address] 99557 Monocytes (Bld) [#/Vol] 0.2 10*3/uL Normal 0-0.9 [facility] Comment on above: Performed By: #### Sarah WISE CMP, ####[facility] ([id number])[address] [place] [address] 00439 Monocytes/100 WBC (Bld) 1.7 % Normal [facility] Comment on above: Performed By: #### C BILLIE, CMP, 19847-2 ####[facility] ([id number])[address] [place] [address] 53383 Neutrophils/100 WBC (Bld) 94.7 % Normal [facility] Comment on above: Performed By: #### C BILLIE, CMP, 98789-2 ####[facility] ([id number])[address] [place] [address] 45146 Platelet mean volume (Bld) [Entitic vol] 8.7 fL Normal 7-12 [facility] Comment on above: Performed By: #### Sarah WISE, CMP, ####[facility] ([id number])[address] [place] [address] 40962 Platelets (Bld) [#/Vol] 227 10*3/uL Normal 150-450 [facility] Comment on above: Performed By: #### Sarah WISE, CMP, ####[facility] ([id number])[address] [place] [address] 33159 RBC COUNT 4.29 X10E12/L Normal 4.10-5.70 [facility] Comment on above: Performed By: #### Sarah WISE, CMP, ####[facility] ([id number])[address] [place] [address] 40369 WBC (Bld) [#/Vol] 10.2 10*3/uL Normal 4.0-11.0 [facility] Comment on above: Performed By: #### C BILLIE, CMP, ####[facility] ([id number])[address] [place] [address] 21992 COMPREHENSIVE METABOLIC PANE Johnny 08-10-2023 Albumin [Mass/Vol] 3.7 g/dL Normal 3.2-5.3 [facility] Comment on above: Performed By: #### C BILLIE CMP, ####[facility] ([id number])[address] [place] [address] 13600 ALP [Catalytic activity/Vol] 34 U/L Low 39-130 [facility] Comment on above: Performed By: #### C BCA, CMP, ####[facility] ([id number])[address] [place] [address] 44702 ALT [Catalytic activity/Vol] 27 U/L Normal 0-40 [facility] Comment on above: Performed By: #### C IBLLIE, CMP, ####[facility] ([id number])[address] [place] [address] [place] [address] Anion gap [Moles/Vol] 11 mmol/L Normal 5-15 [facility] Comment on above: Performed By: #### C BILLIE, CMP, ####[facility] ([id number])[address] [place] [address] 34215 AST [Catalytic activity/Vol] 21 U/L Normal 0-41 [facility] Comment on above: Performed By: #### C BCA, CMP, ####[facility] ([id number])[address] [place] [address] [place] [address] Bilirubin [Mass/Vol] 1.0 mg/dL Normal 0.3-1.2 [facility] Comment on above: Performed By: #### C BCA, CMP, 42392-7 ####[facility] ([id number])[address] [place] [address] 91176 Calcium [Mass/Vol] 8.9 mg/dL Normal 8.5-10.5 [facility] Comment on above: Performed By: #### C BILLIE [facility], ####[facility] ([id number])[address] [place] [address] 90138 Chloride [Moles/Vol] 104 mmol/L Normal 98-109 [facility] Comment on above: Performed By: #### C BILLIE [facility], ####[facility] ([id number])[address] [place] [address] 40481 CO2 [Moles/Vol] 21 mmol/L Low 22-32 [facility] Comment on above: Performed By: #### C BILLIE [facility], ####[facility] ([id number])[address] [place] [address] 23701 Creatinine [Mass/Vol] 1.04 mg/dL Normal 0.70-1.20 [facility] Comment on above: Result Comment: METH OD TRACEABLE TO IDMS STANDARD Performed By: #### C BILLIE [facility], ####[facility] ([id number])[address] [place] [address] 80644 GFR/1.73 sq M.predicted among non-blacks MDRD (S/P/Bld) [Vol rate/Area] 71 mL/min/{1.73_m2} Normal >59 [facility] Comment on above: Result Comment: Reported eGFR is based on the CKD-EPI 1 equation that does not use a race coefficient. Performed By: #### C BUDDY WISE, ####[facility] ([id number])[address] [place] [address] 96186 Glucose [Mass/Vol] 144 mg/dL High 65-99 [facility] Comment on above: Performed By: #### C BILLIE [facility], ####[facility] ([id number])[address] [place] [address] 26644 Potassium [Moles/Vol] 4.1 mmol/L Normal 3.5-5.0 [facility] Comment on above: Performed By: #### C BILLIE, CMP, ####[facility] ([id number])[address] [place] [address] 75629 Protein [Mass/Vol] 6.1 g/dL Normal 6.0-8.0 [facility] Comment on above: Performed By: #### C BILLIE, CMP, ####[facility] ([id number])[address] [place] [address] 86855 Sodium [Moles/Vol] 136 mmol/L Normal 134-146 [facility] Comment on above: Performed By: #### Sarah BCA, CMP, ####[facility] ([id number])[address] [place] [address] 62764 Urea nitrogen [Mass/Vol] 20 mg/dL Normal 5-27 [facility] Comment on above: Performed By: #### C BILLIE, CMP, ####[facility] ([id number])[address] [place] [address] 68418 MAGNESIUMon 08-10-2023 Magnesium [Mass/Vol] 2.1 mg/dL Normal 1.8-2.6 [facility] Comment on above: Performed By: #### Sarah BCA, CMP, ####[facility] ([id number])[address] [place] [address] 52070 CBC AND AUTO DIFFon 08-09-19 24 Band form neutrophils/100 WBC (Bld) 1.0 % Normal [facility] Comment on above: Performed By: #### C BCA, CMP, 13287-0, 76080-4, 63009-6, 79397-7, 76347-1, PINR, 43712-2 #### [facility] ([id number]) [address] [place] [address] 60181 Eosinophils (Bld) [#/Vol] 0.1 10*3/uL Normal 0.0-0.4 [facility] Comment on above: Performed By: #### C BCA, CMP, 90888-2, 74943-2, 85698-5, 83185-2, 60305-1, PINR, 51166-0 #### [facility] ([id number]) [address] [place] [address] 08394 Eosinophils/100 WBC (Bld) 1.0 % Normal [facility] Comment on above: Performed By: #### C BCA, CMP, 87044-4, 17484-3, 89523-1, 69954-7, 20961-8, PINR, 95117-5 #### [facility] ([id number]) [address] [place] [address] 01828 Erythrocyte distribution width (RBC) [Ratio] 13.9 % Normal 11.5-15.0 [facility] Comment on above: Performed By: #### C BCA, CMP, 79822-1, 40417-8, 20408-9, 40372-4, 33753-6, PINR, 50047-0 #### [facility] ([id number]) [address] [place] [address] 87587 Hematocrit (Bld) [Volume fraction] 42.3 % Normal 39-49 [facility] Comment on above: Performed By: #### C BCA, CMP, 85187-9, 68145-5, 42874-1, 20668-8, 66644-2, PINR, 92251-6 #### [facility] ([id number]) [address] [place] [address] 55402 Hemoglobin (Bld) [Mass/Vol] 14.5 g/dL Normal 13.0-17.0 [facility] Comment on above: Performed By: #### C BCA, CMP, 36286-4, 80405-0, 26512-6, 20301-1, 68466-7, PINR, 77083-8 #### [facility] ([id number]) [address] [place] [address] 52991 Lymphocytes (Bld) [#/Vol] 1.2 10*3/uL Normal 1.0-3.5 [facility] Comment on above: Performed By: #### C BCA, CMP, 07391-7, 33956-0, 10586-4, 13871-9, 96436-8, PINR, 21930-2 #### [facility] ([id number]) [address] [place] [address] 33707 Lymphocytes/100 WBC (Bld) 14.0 % Normal [facility] Comment on above: Performed By: #### C BCA, CMP, 49114-2, 83689-7, 13777-7, 65140-7, 12179-2, PINR, 90787-1 #### [facility] ([id number]) [address] [place] [address] 98541 MCH (RBC) [Entitic mass] 33.2 pg Normal 27-34 [facility] Comment on above: Performed By: #### C BCA, CMP, 35771-9, 94068-6, 26260-0, 22073-6, 50442-2, PINR, 35685-1 #### [facility] ([id number]) [address] [place] [address] 83345 MCHC (RBC) [Mass/Vol] 34.3 g/dL Normal 32-36 [facility] Comment on above: Performed By: #### C BCA, CMP, 29375-5, 93326-9, 64210-9, 81258-1, 85194-5, PINR, 02961-7 #### [facility] ([id number]) [address] [place] [address] 34449 MCV (RBC) [Entitic vol] 97 fL Normal 80-100 [facility] Comment on above: Performed By: #### C BCA, CMP, 59134-0, 70424-9, 65451-3, 32478-7, 75122-1, PINR, 27723-8 #### [facility] ([id number]) [address] [place] [address] 39536 Metamyelocytes/100 WBC (Bld) 1.0 % Normal [facility] Comment on above: Performed By: #### C BCA, CMP, 03148-0, 58707-8, 16023-8, 20677-9, 30290-1, PINR, 89556-2 #### [facility] ([id number]) [address] [place] [address] 57323 Monocytes (Bld) [#/Vol] 0.8 10*3/uL Normal 0-0.9 [facility] Comment on above: Performed By: #### C BCA, CMP, 37939-2, 49822-7, 08466-0, 62793-8, 07947-2, PINR, 62462-5 #### [facility] ([id number]) [address] [place] [address] 15313 Monocytes/100 WBC (Bld) 9.0 % Normal [facility] Comment on above: Performed By: #### C BCA, CMP, 47872-3, 63753-7, 41682-7, 37517-3, 16696-4, PINR, 47900-3 #### [facility] ([id number]) [address] [place] [address] 44282 MYELOCYTE 1.0 % Normal [facility] Comment on above: Performed By: #### C BCA, CMP, 46688-4, 92385-5, 30715-5, 87364-6, 57561-8, PINR, 12671-3 #### [facility] ([id number]) [address] [place] [address] 16954 Neutrophils (Bld) [#/Vol] 6.4 10*3/uL Normal 1.5-6.6 [facility] Comment on above: Performed By: #### C BCA, CMP, 36975-6, 92213-9, 34670-8, 23112-2, 67786-1, PINR, 11478-1 #### [facility] ([id number]) [address] [place] [address] 15139 Platelet mean volume (Bld) [Entitic vol] 9.0 fL Normal 7-12 [facility] Comment on above: Performed By: #### C BCA, CMP, 39811-6, 73979-2, 62015-9, 14970-8, 17620-9, PINR, 48809-6 #### [facility] ([id number]) [address] [place] [address] 40378 Platelets (Bld) [#/Vol] 241 10*3/uL Normal 150-450 [facility] Comment on above: Performed By: #### C BCA, CMP, 78266-1, 49443-9, 44749-4, 33301-4, 02006-7, PINR, 74258-2 #### [facility] ([id number]) [address] [place] [address] 09696 RBC COUNT 4.37 X10E12/L Normal 4.10-5.70 [facility] Comment on above: Performed By: #### C BCA, CMP, 34246-9, 47334-4, 36419-5, 93261-6, 26661-7, PINR, 91325-6 #### [facility] ([id number]) [address] [place] [address] 79584 SEG NEUTROPHIL 73.0 % Normal [facility] Comment on above: Performed By: #### C BCA, CMP, 88118-1, 08027-5, 35819-8, 63083-4, 91465-4, PINR, 59477-0 #### [facility] ([id number]) [address] [place] [address] 33410 TEARDROP 1+ Abnormal NONE [facility] Comment on above: Performed By: #### C BCA, CMP, 11057-5, 57031-0, 64343-1, 99335-3, 05762-6, PINR, 60636-3 #### [facility] ([id number]) [address] [place] [address] 07894 WBC (Bld) [#/Vol] 8.8 10*3/uL Normal 4.0-11.0 [facility] Comment on above: Performed By: #### C BCA, CMP, 52377-2, 50399-2, 11482-2, 70300-1, 88197-7, PINR, 04261-7 #### [facility] ([id number]) [address] [place] [address] 71086 COMPREHENSIVE METABOLIC PANE Johnny 08-09-2023 Albumin [Mass/Vol] 4.0 g/dL Normal 3.2-5.3 [facility] Comment on above: Performed By: #### C BCA, CMP, 15595-8, 09901-1, 65715-7, 37430-1, 99020-1, PINR, 17739-8 #### [facility] ([id number]) [address] [place] [address] 79968 ALP [Catalytic activity/Vol] 37 U/L Low 39-130 [facility] Comment on above: Performed By: #### C BCA, CMP, 66622-9, 21185-5, 68680-4, 75760-3, 24358-1, PINR, 68655-2 #### [facility] ([id number]) [address] [place] [address] 32515 ALT [Catalytic activity/Vol] 27 U/L Normal 0-40 [facility] Comment on above: Performed By: #### C BCA, CMP, 57017-1, 29645-9, 71899-2, 71198-8, 22277-5, PINR, 99330-0 #### [facility] ([id number]) [address] [place] [address] 24540 Anion gap [Moles/Vol] 5 mmol/L Normal 5-15 [facility] Comment on above: Performed By: #### C BCA, CMP, 77939-7, 14761-5, 55021-1, 29696-4, 64236-4, PINR, 35752-5 #### [facility] ([id number]) [address] [place] [address] 28688 AST [Catalytic activity/Vol] 24 U/L Normal 0-41 [facility] Comment on above: Performed By: #### C BCA, CMP, 61351-0, 24061-3, 55335-6, 11426-5, 41133-3, PINR, 23838-6 #### [facility] ([id number]) [address] [place] [address] 53025 Bilirubin [Mass/Vol] 0.7 mg/dL Normal 0.3-1.2 [facility] Comment on above: Performed By: #### C BCA, CMP, 77699-1, 03378-4, 97179-0, 11047-0, 65840-9, PINR, 80311-5 #### [facility] ([id number]) [address] [place] [address] 36001 Calcium [Mass/Vol] 8.7 mg/dL Normal 8.5-10.5 [facility] Comment on above: Performed By: #### C BCA, CMP, 97557-8, 54290-3, 33644-4, 28691-5, 94610-3, PINR, 08480-8 #### [facility] ([id number]) [address] [place] [address] 79457 Chloride [Moles/Vol] 107 mmol/L Normal 98-109 [facility] Comment on above: Performed By: #### C BCA, CMP, 73551-0, 11484-1, 31880-6, 43416-1, 20614-6, PINR, 88854-1 #### [facility] ([id number]) [address] [place] [address] 66889 CO2 [Moles/Vol] 24 mmol/L Normal 22-32 [facility] Comment on above: Performed By: #### C BCA, CMP, 38040-9, 00689-0, 71470-3, 10077-5, 55451-0, PINR, 52254-6 #### [facility] ([id number]) [address] [place] [address] 36944 Creatinine [Mass/Vol] 1.00 mg/dL Normal 0.70-1.20 [facility] Comment on above: Result Comment: METH OD TRACEABLE TO IDMS STANDARD Performed By: #### C BCA, CMP, 08296-9, 63840-2, 89908-5, 99578-0, 90818-4, PINR, 39913-6 #### [facility] ([id number]) [address] [place] [address] 95461 GFR/1.73 sq M.predicted among non-blacks MDRD (S/P/Bld) [Vol rate/Area] 74 mL/min/{1.73_m2} Normal >59 [facility] Comment on above: Result Comment: Reported eGFR is based on the CKD-EPI 2020 equation that does not use a race coefficient. Performed By: #### C BCA, CMP, 19052-0, 81635-1, 65166-4, 37172-1, 25061-8, PINR, 41709-7 #### [facility] ([id number]) [address] [place] [address] 54507 Glucose [Mass/Vol] 100 mg/dL High 65-99 [facility] Comment on above: Performed By: #### C BCA, CMP, 68604-1, 39871-3, 77075-4, 61930-1, 31194-6, PINR, 27735-8 #### [facility] ([id number]) [address] [place] [address] 52248 Potassium [Moles/Vol] 3.9 mmol/L Normal 3.5-5.0 [facility] Comment on above: Performed By: #### C BCA, CMP, 03675-8, 42636-9, 07073-8, 18565-0, 31433-1, PINR, 31119-4 #### [facility] ([id number]) [address] [place] [address] 53919 Protein [Mass/Vol] 6.7 g/dL Normal 6.0-8.0 [facility] Comment on above: Performed By: #### C BCA, CMP, 66960-0, 02329-4, 34069-8, 24923-1, 79876-6, PINR, 07778-5 #### [facility] ([id number]) [address] [place] [address] 29389 Sodium [Moles/Vol] 136 mmol/L Normal 134-146 [facility] Comment on above: Performed By: #### C BCA, CMP, 66768-6, 53314-9, 30362-4, 70974-4, 38949-3, PINR, 39585-6 #### [facility] ([id number]) [address] [place] [address] 51169 Urea nitrogen [Mass/Vol] 19 mg/dL Normal 5-27 [facility] Comment on above: Performed By: #### C BCA, CMP, 21563-6, 29985-0, 25891-1, 36656-0, 14256-4, PINR, 84950-8 #### [facility] ([id number]) [address] [place] [address] 78807 Fibrin D-dimer DDU (PPP) [Ma ss/Vol]on 08-09-2023 D DIMER <150 Normal <255 [facility] Comment on above: Result Comment: Results <255 ng/mL DDU: The presence of a VTE can safely be excluded with a negative D-Dimer result and Wells score. A negative result doesn't exclude the possibility of DIC. The test be repeated along with other diagnostic tests if the patient's symptoms persist or worsen. [email or web address] Performed By: #### C BCA, CMP, 99057-5, 92490-2, 33447-5, 87436-3, 48110-6, PINR, 83305-8 #### [facility] ([id number]) [address] [place] [address] 75345 Lactate (P antonette) [Moles/Vol]o n 08-09-2023 LACTATE W/REFLEX 1.3 mmol/L Normal 0.4-2.0 [facility] Comment on above: Result Comment: Result did not trigger repeat Lactate, re-order if needed. Performed By: #### C BCA, CMP, 60711-0, 93898-1, 64320-7, 71354-1, 12854-6, PINR, 93676-6 #### [facility] ([id number]) [address] [place] [address] 28429 MAGNESIUMon 08-09-2023 Magnesium [Mass/Vol] 2.3 mg/dL Normal 1.8-2.6 [facility] Comment on above: Performed By: #### C BCA, CMP, 38175-4, 77916-0, 18770-4, 46311-0, 01226-5, PINR, 33705-7 #### [facility] ([id number]) [address] [place] [address] 66352 Natriuretic peptide B [Mass/ Vol]on 08-09-2023 Natriuretic peptide B (Bld) [Mass/Vol] 79 pg/mL Normal <100.0 [facility] Comment on above: Performed By: #### C BCA, CMP, 39897-8, 74750-0, 03479-0, 83958-3, 42026-1, PINR, 92111-7 #### [facility] ([id number]) [address] [place] [address] PROTIME AND INRon 08-09-2023 INR Coag (PPP) [Relative time] 1.1 {INR} Normal 0.8-1.1 [facility] Comment on above: Performed By: #### C BCA, CMP, 11119-6, 25320-3, 89671-2, 64437-6, 13170-8, PINR, 83513-0 #### [facility] ([id number]) [address] [place] [address], [place] [address] PT Coag (PPP) [Time] 13.0 s Normal 9.8-13.2 [facility] Comment on above: Result Comment: NEW REFERENCE RANGE Performed By: #### C BCA, CMP, 55317-1, 53965-3, 19744-4, 51948-3, 98325-2, PINR, 61930-3 #### [facility] ([id number]) [address] [place] [address], [place] [address] SARS/FLU A+B/RSV by NAAT/Mol ecularon 08-09-2023 SARS/FLU [...] operators who are performing tests using either Gene[employer] Party DX or GeneXDobleas systems and is limited to laboratories that [...] repeat. Fact Sheet for Healthcare Providers: https://www.fda.gov/me shiva/928338/download Fact Sheet for Patients: https://www.fda.gov/me shiva/642491/download Normal [facility] Comment on above: Performed By: #### C OVFLR ####[facility] ([id number])[address] [place] [address] 36867 TROPONIN Ion 08-09-2023 Troponin I.cardiac [Mass/Vol] ng/mL Normal 0.00-0.04 [facility] Comment on above: Performed By: #### C BCA, CMP, 38673-3, 42440-6, 31484-6, 54046-0, 57777-1, PINR, 61327-6 #### [facility] ([id number]) [address] [place] [address] 39374 XR CHEST 1 VWon 08-09-2023 XR CHEST [...] Gurdeep Strong on 08/09/2023 4:09 PM Normal [facility] aPTT Coag (PPP) [Time]on aPTT Coag (Bld) [Time] 32 s Normal 26-37 [facility] Comment on above: Result Comment: NEW REFERENCE RANGE Performed By: #### C BCA, CMP, 65319-0, 69674-6, 78416-0, 12313-0, 45394-6, PINR, 10534-4 ####[facility] ([id number])[address] [place] [address] XR CHEST 2 VWSon 08-02-2023 XR CHEST [...] Goodwin MD on 08/02/2023 4:01 PM Normal [facility] XR LSPINE MIN 4 VIEWSon [...] by: ALEXEY MICHELLE Date: 2021-11-04 07:45 Normal [facility] CBC AUTO DIFFon 10-21-2021 BASO # 0.1 103/ul Normal 0.0-0.1 [facility] Comment on above: Performed By: #### C BC #### [facility] [address] [address] [address] Vannessa Quiroga Basophils/100 WBC (Bld) 1.1 % Normal 0.2-2.0 [facility] Comment on above: Performed By: #### C BC #### [facility] [address] [address] [address] Vannessa Quiroga EO # 0.2 103/ul Normal 0.0-0.7 [facility] Comment on above: Performed By: #### C BC #### [facility] [address] [place] [address] Dr. Vannessa Quiroga Eosinophils/100 WBC (Bld) 3.4 % Normal 0.9-7.0 [facility] Comment on above: Performed By: #### C BC #### [facility] [address] [place] [address] Dr. Vannessa Quiroga Erythrocyte distribution width (RBC) [Ratio] 13.0 % Normal 11.0-15.0 [facility] Comment on above: Performed By: #### C BC #### [facility] [address] [place] [address] Dr. Vannessa Quiroga Hematocrit (Bld) [Volume fraction] 45.1 % Normal 42.0-54.0 [facility] Comment on above: Performed By: #### C BC #### [facility] [address] [place] [address] Dr. Vannessa Quiroga Hemoglobin (Bld) [Mass/Vol] 15.0 g/dL Normal 14.0-18.0 [facility] Comment on above: Performed By: #### C BC #### [facility] [address] [place] [address] Dr. Vannessa Quiroga IG # 0.07 10e3/ul Critically high 0.00-0.03 [facility] Comment on above: Performed By: #### C BC #### [facility] [address] [place] [address] Dr. Vannessa Quiroga IG % 1.3 % Critically high 0.0-0.5 [facility] Comment on above: Performed By: #### C BC #### [facility] [address] [address] [address] Vannessa Quiroga LYMPH # 0.9 103/ul Critically low 1.2-3.8 [facility] Comment on above: Performed By: #### C BC #### [facility] [address] [address] [address] Vannessa Quiroga Lymphocytes/100 WBC (Bld) 17.2 % Critically low 20.5-60.0 [facility] Comment on above: Performed By: #### C BC #### [facility] [address] [place] [address] Dr. Vannessa Quiroga MANUAL DIFF REQ NO Normal [facility] Comment on above: Performed By: #### C BC #### [facility] [address] [place] [address] Dr. Vannessa Quiroga MCH (RBC) [Entitic mass] 31.3 pg Normal 25.9-34.0 [facility] Comment on above: Performed By: #### C BC #### [facility] [address] [place] [address] Dr. Vannessa Quiroga MCHC (RBC) [Mass/Vol] 33.3 g/dL Normal 29.9-35.2 [facility] Comment on above: Performed By: #### C BC #### [facility] [address] [place] [address] Dr. Vannessa Quiroga MCV (RBC) [Entitic vol] 94.2 fL Critically high 80.0-94.0 [facility] Comment on above: Performed By: #### C BC #### [facility] [address] [place] [address] Dr. Vannessa Quiroga MONO # 0.6 103/ul Normal 0.3-0.8 [facility] Comment on above: Performed By: #### C BC #### [facility] [address] [place] [address] Dr. Vannessa Quiroga Monocytes/100 WBC (Bld) 11.2 % Normal 1.7-12.0 [facility] Comment on above: Performed By: #### C BC #### [facility] [address] [place] [address] Dr. Vannessa Quiroga NEUT # 3.5 103/ul Normal 1.4-6.5 [facility] Comment on above: Performed By: #### C BC #### [facility] [address] [place] [address] Dr. Vannessa Quiroga Neutrophils/100 WBC (Bld) 65.8 % Normal 43.0-75.0 [facility] Comment on above: Performed By: #### C BC #### [facility] [address] [place] [address] Dr. Vannessa Quiroga Platelet mean volume (Bld) [Entitic vol] 9.9 fL Normal 9.5-13.5 [facility] Comment on above: Performed By: #### C BC #### [facility] [address] [place] [address] Dr. Vannessa Quiroga PLT 175 103/ul Normal 150-450 [facility] Comment on above: Performed By: #### C BC #### [facility] [address] [place] [address] Dr. Vannessa Quiroga RBC 4.79 106/ul Normal 4.70-6.10 [facility] Comment on above: Performed By: #### C BC #### [facility] [address] [place] [address] Dr. Vannessa Quiroga WBC 5.4 103/ul Normal 4.0-11.0 [facility] Comment on above: Performed By: #### C BC #### [facility] [address] [place] [address] Dr. Vannessa Quiroga FREE T3on 10-21-2021 FREE T3 2.13 pg/mlL Critically low 2.18-3.98 [facility] Comment on above: Performed By: #### T SH, CMP, LIPID, FT3, T4 #### [facility] [address] [place] [address] Dr. Vannessa Quiroga GLYCOHEMOGLOBIN A1Con 2021 ADA RECOMMENDATION SEE BELOW Normal [facility] Comment on above: Result Comment: ADA RECOMMENDED LIMIT 4.0 - 6.0 ADA THERAPEUTIC TARGET < 7.0 ACTION SUGGESTED > 7.0 Performed By: #### A 1C #### [facility] [address] [place] [address] Dr. Vannessa Quiroga Glucose [Mass/Vol] 120 mg/dL Normal [facility] Comment on above: Performed By: #### A 1C #### [facility] [address] [place] [address] Dr. Vannessa Quiroga HbA1c (Bld) [Mass fraction] 5.8 % Normal 4.5-6.2 [facility] Comment on above: Performed By: #### A 1C #### [facility] [address] [place] [address] Dr. Vannessa Quiroga LIPID PROFILEon 10-21-2021 CHOL-HDL RATIO NORM SEE BELOW Normal [facility] Comment on above: Result Comment: 3.3 - 4.4 LOW RISK 4.4 - 7.1 AVERAGE RISK 7.1 - 11.0 MODERATE RISK >11.0 HIGH RISK Performed By: #### T SH, CMP, LIPID, FT3, T4 #### [facility] [address] [place] [address] Dr. Vannessa Quiroga Cholesterol [Mass/Vol] 172 mg/dL Normal <=200 [facility] Comment on above: Performed By: #### T SH, CMP, LIPID, FT3, T4 #### [facility] [address] [address] [address] Vannessa Quiroga Cholesterol in HDL [Mass/Vol] 30 mg/dL Critically low 40-60 [facility] Comment on above: Performed By: #### T SH, CMP, LIPID, FT3, T4 #### [facility] [address] [address] [address] Vannessa Quiroga Cholesterol in LDL [Mass/Vol] 102.2 mg/dL Normal [facility] Comment on above: Performed By: #### T SH, CMP, LIPID, FT3, T4 #### [facility] [address] [address] [address] Vannessa Quiroga Cholesterol.total/Ch olesterol in HDL [Mass ratio] 5.7 {ratio} Normal [facility] Comment on above: Performed By: #### T SH, CMP, LIPID, FT3, T4 #### [facility] [address] [address] [address] Vannessa Quiroga HDL NORMAL > or = 60 mg/dl - LO W CARDIOVASCULAR RISK <40 mg/dl - HIGH CARDIOVASCULAR RISK Normal [facility] Comment on above: Performed By: #### T SH, CMP, LIPID, FT3, T4 #### [facility] [address] [address] [address] Vannessa Quiroga LDL CALC NORMAL SEE BELOW Normal [facility] Comment on above: Result Comment: <100 mg/dl OPTIMAL 100 - 129 mg/dl NEAR OR ABOVE OPTIMAL 130 - 159 mg/dl BORDERLINE HIGH 160 - 189 mg/dl HIGH >190 mg/dl VERY HIGH Performed By: #### T SH, CMP, LIPID, FT3, T4 #### [facility] [address] [place] [address] Dr. Vannessa Quiroga Triglyceride [Mass/Vol] 199 mg/dL Critically high <=150 [facility] Comment on above: Performed By: #### T SH, CMP, LIPID, FT3, T4 #### [facility] [address] [address] [address] Vannessa Quiroga VLDL CALC 39.8 mg/dL Normal [facility] Comment on above: Performed By: #### T SH, CMP, LIPID, FT3, T4 #### [facility] [address] [place] [address] Dr. Vannessa Quiroga PROF 14(COMP METB)on 022 Albumin [Mass/Vol] 3.6 g/dL Normal 3.4-5.0 [facility] Comment on above: Performed By: #### T SH, CMP, LIPID, FT3, T4 #### [facility] [address] [place] [address] Dr. Vannessa Quiroga Albumin/Globulin [Mass ratio] 1.2 {ratio} Normal [facility] Comment on above: Performed By: #### T SH, CMP, LIPID, FT3, T4 #### [facility] [address] [address] [address] Vannessa Quiroga ALP [Catalytic activity/Vol] 50 U/L Normal 46-116 [facility] Comment on above: Performed By: #### T SH, CMP, LIPID, FT3, T4 #### [facility] [address] [place] [address] Dr. Vannessa Quiroga ALT [Catalytic activity/Vol] 25 U/L Normal 16-63 [facility] Comment on above: Performed By: #### T SH, CMP, LIPID, FT3, T4 #### [facility] [address] [place] [address] Dr. Vannessa Quiroga Anion gap [Moles/Vol] 13.9 mmol/L Normal [facility] Comment on above: Performed By: #### T SH, CMP, LIPID, FT3, T4 #### [facility] [address] [place] [address] Dr. Vannessa Quiroga AST [Catalytic activity/Vol] 12 U/L Critically low 15-37 [facility] Comment on above: Performed By: #### T SH, CMP, LIPID, FT3, T4 #### [facility] [address] [place] [address] Dr. Vannessa Quiroga Bilirubin [Mass/Vol] 0.5 mg/dL Normal 0.2-1.0 [facility] Comment on above: Performed By: #### T SH, CMP, LIPID, FT3, T4 #### [facility] [address] [place] [address] Dr. Vannessa Quiroga Calcium [Mass/Vol] 8.5 mg/dL Normal 8.5-10.1 [facility] Comment on above: Performed By: #### T SH, CMP, LIPID, FT3, T4 #### [facility] [address] [place] [address] Dr. Vannessa Quiroga Chloride [Moles/Vol] 107 mmol/L Normal 98-107 [facility] Comment on above: Performed By: #### T SH, CMP, LIPID, FT3, T4 #### [facility] [address] [address] [address] Vannessa Quiroga CO2 [Moles/Vol] 25.3 mmol/L Normal 21.0-32.0 [facility] Comment on above: Performed By: #### T SH, CMP, LIPID, FT3, T4 #### [facility] [address] [place] [address] Dr. Vannessa Quiroga Creatinine [Mass/Vol] 1.09 mg/dL Normal 0.70-1.30 [facility] Comment on above: Performed By: #### T SH, CMP, LIPID, FT3, T4 #### [facility] [address] [place] [address] Dr. Vannessa Quiroga EGFR-AF SAO TOMEAN >60 Normal >=60 [facility] Comment on above: Performed By: #### T SH, CMP, LIPID, FT3, T4 #### [facility] [address] [place] [address] Dr. Vannessa Quiroga EGFR-NON AF SAO TOMEAN >60 Normal >=60 [facility] Comment on above: Performed By: #### T SH, CMP, LIPID, FT3, T4 #### [facility] [address] [place] [address] Dr. Vannessa Quiroga Globulin (S) [Mass/Vol] 3.0 g/dL Normal [facility] Comment on above: Performed By: #### T SH, CMP, LIPID, FT3, T4 #### [facility] [address] [place] [address] Dr. Vannessa Quiroga Glucose [Mass/Vol] 115 mg/dL Critically high 74-106 [facility] Comment on above: Performed By: #### T SH, CMP, LIPID, FT3, T4 #### [facility] [address] [place] [address] Dr. Vannessa Quiroga Potassium [Moles/Vol] 4.2 mmol/L Normal 3.5-5.1 [facility] Comment on above: Performed By: #### T SH, CMP, LIPID, FT3, T4 #### [facility] [address] [place] [address] Dr. Vannessa Quiroga Protein [Mass/Vol] 6.6 g/dL Normal 6.4-8.2 [facility] Comment on above: Performed By: #### T SH, CMP, LIPID, FT3, T4 #### [facility] [address] [place] [address] Dr. Vannessa Quiroga Sodium [Moles/Vol] 142 mmol/L Normal 136-145 [facility] Comment on above: Performed By: #### T SH, CMP, LIPID, FT3, T4 #### [facility] [address] [place] [address] Dr. Vannessa Quiroga Urea nitrogen [Mass/Vol] 12.0 mg/dL Normal 7.0-18.0 [facility] Comment on above: Performed By: #### T SH, CMP, LIPID, FT3, T4 #### [facility] [address] [place] [address] Dr. Vannessa Quiroga Urea nitrogen/Creatinine [Mass ratio] 11.0 mg/mg Normal [facility] Comment on above: Performed By: #### T SH, CMP, LIPID, FT3, T4 #### [facility] [address] [place] [address] Dr. Vannessa Quiroga T4on 10-21-2021 T4 [Mass/Vol] 7.60 ug/dL Normal 4.50-12.10 [facility] Comment on above: Performed By: #### T SH, CMP, LIPID, FT3, T4 #### [facility] [address] [place] [address] Dr. Vannessa Quiroga TSHon 10-21-2021 TSH 4.103 uIU/mL Critically high 0.358-3.740 [facility] Comment on above: Performed By: #### T SH, CMP, LIPID, FT3, T4 #### [facility] [address] [place] [address] Dr. Vannessa Quiroga B-Type Natriuretic Peptideon 12-01-2020 Natriuretic peptide B (Bld) [Mass/Vol] 32.0 pg/mL Normal 5-100 [facility] Comment on above: Result Comment: PERF ORMED BY: [place] [address] PATHOLOGIST [employer]BOARD MAKER GUILHERME BRADFORD M.D. Performed By: #### C MP, BNP, CBC, HS TROP #### [address] Basic Metabolic Panelon 07-2 Calcium [Mass/Vol] 9.0 mg/dL Normal 8.2-10.2 [facility] Comment on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 Phone: [facility] 01-11-2018 influenza, high dose seasonal, preservative-free Ban Bill SCREEN HANDLER-APPOINTMENT COORDINATOR Work Phone: [facility] 03-16-2017 pneumococcal conjuga te vaccine, 13 valent Ban Bill SCREEN HANDLER-APPOINTMENT COORDINATOR Work Phone: [facility] 03-09-2017 influenza virus vacc ine, unspecified formulation Ban Bill SCREEN HANDLER-APPOINTMENT COORDINATOR Work Phone: [facility] 04-08-2016 pneumococcal polysaccharide vaccine, 23 valent Ban Bill SCREEN HANDLER-APPOINTMENT COORDINATOR Work Phone: [facility] 02-07-2016 influenza, injectabl e, quadrivalent, preservative free Ban Bill SCREEN HANDLER-APPOINTMENT COORDINATOR Work Phone: [facility] 01-27-2016 influenza, seasonal, injectable, preservative free Ban Bill SCREEN HANDLER-APPOINTMENT COORDINATOR Work Phone: [facility] 03-21-2015 pneumococcal conjuga te vaccine, 13 valent Ban Bill SCREEN HANDLER-APPOINTMENT COORDINATOR Work Phone: [facility] 02-04-2015 influenza, seasonal, injectable Ban Bill SCREEN HANDLER-APPOINTMENT COORDINATOR Work Phone: [facility] 02-19-2014 influenza, seasonal, injectable Ban Bill SCREEN HANDLER-APPOINTMENT COORDINATOR Work Phone: [facility] 03-14-2013 influenza virus vacc ine, whole virus Ban Bill SCREEN HANDLER-APPOINTMENT COORDINATOR Work Phone: [facility] 02-23-2012 influenza virus vacc ine, whole virus Ban Bill SCREEN HANDLER-APPOINTMENT COORDINATOR Work Phone: [facility] 02-25-2011 influenza virus vacc ine, whole virus Ban Bill SCREEN HANDLER-APPOINTMENT COORDINATOR Work Phone: [facility] 11-10-2010 pneumococcal polysaccharide vaccine, 23 valent Ban Bill SCREEN HANDLER-APPOINTMENT COORDINATOR Work Phone: [facility] Payers Date Payer Category Payer Medicare ANTHEM MEDICARE ANTHEM MEDICARE ADVANTAGE [id number] 2016-Present [phone] [address] [place] [address] [id number] 2016 Medicare HMO [facility] MED[facility] [id number] 1959 Unknown [id number] 1938 Unknown [id number] 2.16.840.1.172633.3.579.2.59 3 1938 Unknown [id number] 2.16.840.1.065484.3.579.2.59 3 1938 Unknown [id number] 2.16.840.1.304404.3.579.2.59 3 1938 Unknown [id number] 2.16.840.1.417067.3.579.2.59 3 1938 Unknown [id number] 2.16.840.1.092990.3.579.2.72 7 1938 Unknown [id number] 2.16.840.1.859380.3.579.2.72 7 1938 Unknown [id number] 2.16.840.1.916210.3.579.2.12 86 1938 Unknown [id number] 2.16.840.1.212670.3.579.2.12 86 1938 Unknown [id number] 2.16.840.1.062775.3.579.2.12 86 1938 Unknown [id number] 2.16.840.1.672027.3.579.2.12 86 1938 Unknown [id number] 2.16.840.1.849058.3.579.2.12 86 1938 Unknown [id number] 2.16.840.1.807926.3.579.2.12 86 1938 Unknown [id number] 2.16.840.1.508058.3.579.2.12 86 1938 Unknown [id number] 2.16.840.1.283045.3.579.2.12 86 1938 Unknown [id number] 2.16.840.1.995159.3.579.2.12 86 1938 Unknown [id number] 2.16.840.1.195582.3.579.2.12 86 1938 Unknown [id number] 2.16.840.1.337720.3.579.2.12 86 1938 Unknown [id number] 2.16.840.1.330046.3.579.2.12 86 1938 Unknown [id number] 2.16.840.1.239887.3.579.2.12 86 1938 Unknown [id number] 2.16.840.1.558565.3.579.2.12 86 1938 Unknown [id number] 2.16.840.1.081745.3.579.2.12 86 1938 Unknown [id number] 2.16.840.1.943560.3.579.2.12 86 1938 Unknown [id number] 2.16.840.1.007256.3.579.2.12 86 1938 Unknown [id number] 2.16.840.1.365179.3.579.2.12 86 1938 Unknown [id number] 2.16.840.1.322006.3.579.2.12 86 1938 Unknown [id number] 2.16.840.1.107019.3.579.2.12 86 1938 Unknown [id number] 2.16.840.1.184776.3.579.2.12 86 1938 Unknown [id number] 2.16.840.1.568385.3.579.2.12 86 1938 Unknown [id number] 2.16.840.1.594296.3.579.2.12 86 Unknown Social History Date Type Detail Facility Start: 01-08-2020 End: 03-01-2022 Tobacco smoking status Ex-smoker (finding) [facility] Start: 06-19-2020 End: 04-04-2023 Sex Assigned At Male [facility] History of tobacco use Current smoker [facility] [employer] [facility] Start: 03-01-2022 Tobacco use and exposure Smokeless tobacco non-user [facility] Start: 04-04-2023 End: 04-30-2024 Alcohol intake Current non-drinker of alcohol (finding) [facility] Start: 06-19-2020 End: 04-04-2023 Alcohol intake [facility] Childcare Unknown [facility] Start: 1940 Sex Assigned At Not on file P [facility] Has the [employer], [employer], [employer], or water company threatened to shut off services in your home in past 12Mo No [facility] Start: 1940 [facility] Start: 08-09-2023 Gender identity Identifies as male gender (finding) [facility] Start: 08-09-2023 Sexual orientation Heterosexual (fin ding) [facility] Start: 12-12-2014 Sex Male (finding) [facility] Goals Date Patient Goal Desired Activity /State Personal health goal Comment on above: Formatting of this n ote might be different from the original. Evaluation of progress towards goal: home Functional Status Date Assessment Result Facility 12-30-2023 Functional Status N/A [facility] 11-19-2022 Functional Status N/A [facility] 11-16-2021 Functional Status N/A [facility] Clinical Notes 11-16-2021 to 04-30-2024 Edwige Delaney MD - 04/30/2024 3:00 PM ESTPatient InstructionsTelephone Encounter - Rosa Elena Melendez - 04/18/2024 12:34 PM ESTTelephone Encounter - RADHA Neumann - 04/18/2024 12:34 PM EST Note Date & Type Note Facility 04-30-2024 History of Present illness Narrative Images from the original note were not included. [address] [place] [address] Patient: Dank Barahona Date of : 1940 Encounter Date: 04/30/2024 History of Present Illness: The patient is a 83 y.o. male, is here for follow up of preoperative risk assessment. He is here today with his . He reports that he has been to see a surgeon about his chronic back pain. He is looking to have back surgery in May to help with some of his mobility. [] Cough [] Dry [] Productive [] Wheeze [x] Shortness of breath - stable [] Chest pain [] Lower limb swelling Supplemental oxygen = 6 minute walk, November 2023, did not require supplemental oxygen Pulmonary regimen: Current = Breztri 2 puffs, BID Prednisone 5 mg Albuterol HFA, rare Albuterol Neblizer 2-3x a week (has shaking) Past = Trelegy (ineffective), symbicort (ineffective) Triggers: Nicotine use = remote history, (1 ppd), quit 2005 Vaping / e-cigarettes = none Second hand smoke = none Exacerbation history = Last hospitalization = August 2023 (dyspnea) Last ER / urgent care visit August 2023 Respiratory need for antibiotics steroids August 2023, prednisone July 2023 (doxy / pred burst) Physical Exam: BP 149/74 (BP Site: Right Arm, BP Postition: Sitting) Pulse 79 Ht 165.1 cm (5' 5 ) Wt 80.7 kg (178 lb) SpO2 94% BMI 29.62 kg/m General Appearance - Awake, alert, oriented, in no acute distress Neck - Supple, trachea midline Lungs - Clear Cardiovascular - Heart sounds are normal. Regular rate and rhythm. Skin - no bruising or bleeding Extremities - no cyanosis, clubbing or edema Assessment: 1. 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 Severe emphysematous lung disease 3. GERD 4. Generalized pruritus 5. History of prostate cancer 6. COVID infection May 2020 7. Chronic back pain 8. Extensive nicotine use history, 48 pyh, quit 2006 Plan: 1. Continue on prednisone 5 mg 2. Possible travel insurance agent for itching 3. Intermediate risk for perioperative pulmonary complications, not prohibitive for surgery 4. Follow up in 6 month Edwige Delaney MD Pulmonary [facility] Sleep Medicine [facility] Past Medical, Family, and Social History Update: The following portions of the patient's history were reviewed and updated as appropriate: allergies, current medications, past family history, past medical history, past social history, past surgical history and problem list. Past Medical History: Diagnosis Date Abnormal EKG 01/21/2017 Benign prostatic hyperplasia with urinary obstruction 08/09/2023 Chronic gastritis COPD (chronic obstructive pulmonary disease) ([facility]) COPD exacerbation ([facility]) 08/09/2023 COVID-19 05/25/2020 Esophagitis GERD (gastroesophageal reflux disease) Hypothyroidism 08/09/2023 On home oxygen therapy Prostate cancer ([facility]) 07/27/2016 Pulmonary hypertension ([facility]) 01/21/2017 Shortness of breath 01/21/2017 Past Surgical History: Procedure Laterality Date COLONOSCOPY HERNIA REPAIR SHOULDER SURGERY Family History Problem Relation Age of Onset Glaucoma Mother Cancer Mother Diabetes Father Heart disease Father Current Outpatient Medications Medication Sig Dispense Refill albuterol (PROVENTIL HFA;VENTOLIN HFA) 90 mcg/actuation inhaler Inhale 2 puffs every 6 (six) hours as needed for wheezing. albuterol (PROVENTIL HFA;VENTOLIN HFA) 90 mcg/actuation inhaler Inhale 2 puffs every 6 (six) hours as needed for wheezing. 18 g 11 albuterol (PROVENTIL,VENTOLIN) 2.5 mg /3 mL (0.083 %) nebulizer solution Inhale 3 mL (2.5 mg total) by nebulization every 4 (four) hours as needed for wheezing. 75 mL 1 gabapentin (NEURONTIN) 100 mg capsule Take 1 capsule (100 mg total) by mouth 3 (three) times a day. hydrOXYzine (ATARAX) 25 mg tablet Take 1 tablet (25 mg total) by mouth. levothyroxine (SYNTHROID, LEVOTHROID) 50 MCG tablet Take 1 tablet (50 mcg total) by mouth in the morning. pantoprazole (PROTONIX) 40 mg EC tablet Take 1 tablet (40 mg total) by mouth every morning before breakfast. predniSONE (DELTASONE) 5 mg tablet Take 1 tablet (5 mg total) by mouth in the morning. 90 tablet 0 tamsulosin (FLOMAX) 0.4 mg capsule,extended release 24hr Take 1 capsule (0.4 mg total) by mouth in the morning and 1 capsule (0.4 mg total) before bedtime. No current facility-administered medications for this visit. (All medications reviewed and updated by provider since last office visit or hospitalization) Allergies: Patient has no known allergies. Tobacco History: Social History Tobacco Use Smoking Status Former Smokeless Tobacco Never (If patient a smoker, smoking cessation counseling offered) Social History: Social History Substance and Sexual Activity Alcohol Use No Alcohol/week: 0.0 standard drinks of alcohol documented in this encounter [facility] 04-30-2024 Instructions Edwige Delaney MD - 04/30/2024 3:00 PM EST 1. Continue on prednisone 5 mg 2. Possible travel insurance agent for itching 3. Intermediate risk for perioperative pulmonary complications, not prohibitive for surgery 4. Follow up in 6 month documented in this encounter [facility] 04-18-2024 Miscellaneous Notes Pt's doctors office LVM requesting pulmonary clearance for surgery scheduled on 05/16/2024. Please call Uma back to discuss at [phone], option 3, extension [phone]. Thank you! Metallurgical Analyst called Uma back and left voicemail requesting a return call. Uma called office back and informed her that we would call patient and try to get him in on 04/30/2024. Uma verbalized understanding and asked that we call her once he is scheduled. Metallurgical Analyst verbalized understanding. Metallurgical Analyst called patient and spoke with his /HIPAA, Angie, offered 3pm on 04/30/2024 for pulmonary clearance. Angie confirmed appointment date and time. Metallurgical Analyst called Uma back and left voicemail informing her of date and time. Asked that Uma fax over the clearance request form for KW to sign off on to [phone]. Chest xray only please Order for CXR placed, information writer called patient and spoke to his /HIPAA, Angie, informed her that KW would like CXR completed prior to his appointment with her on 04/30/2024, Angie verbalized understanding. [facility] Telephone encounter Note Pt's doctors office LVM requesting pulmonary clearance for surgery scheduled on 05/16/2024. Please call Uma back to discuss at [phone], option 3, extension [phone]. Thank you! [facility] Telephone encounter Note Metallurgical Analyst called Uma back and left voicemail requesting a return call. [facility] Telephone encounter Note Uma called office back and informed her that we would call patient and try to get him in on 04/30/2024. Uma verbalized understanding and asked that we call her once he is scheduled. Metallurgical Analyst verbalized understanding. [facility] 04-18-2024 Telephone encounter Note Metallurgical Analyst called patient and spoke with his /HIPAA, Angie, offered 3pm on 04/30/2024 for pulmonary clearance. Angie confirmed appointment date and time. [facility] 04-18-2024 Telephone encounter Note Metallurgical Analyst called Uma back and left voicemail informing her of date and time. Asked that Uma fax over the clearance request form for JOSÉ to sign off on to [phone]. [facility] 04-18-2024 Telephone encounter Note Chest xray only please [facility] 04-18-2024 Telephone encounter Note Order for CXR placed, information writer called patient and spoke to his /HIPAA, Angie, informed her that JOSÉ would like CXR completed prior to his appointment with her on 04/30/2024, Angie verbalized understanding. [facility] 02-08-2024 History of Present illness Narrative [facility] Follow Up CHIEF COMPLAINT: Chief Complaint Patient presents with Difficulty Swallowing Follow-up hepatic steatosis -itchy all over HISTORY OF PRESENT ILLNESS: Dank Barahona is a 83 y.o. male who [...] Chronic gastritis COPD (chronic obstructive pulmonary disease) ([facility]) COPD exacerbation ([facility]) 08/09/2023 COVID-19 05/25/2020 Esophagitis GERD (gastroesophageal reflux disease) Hypothyroidism 08/09/2023 On home oxygen therapy Prostate cancer ([facility]) 07/27/2016 Pulmonary hypertension ([facility]) 01/21/2017 Shortness of breath 01/21/2017 PREVIOUS ENDOSCOPY [...] mouth in the morning., Disp: , Rfl: ortcyhkvyp-vuojdhgd-wogunellzs 160-9-4.8 mcg/actuation HFA aerosol inhaler, Inhale 2 [...] well-nourished. No apparent distress. present for appt. QAGAN TAYAGUNGIN. HEAD: Normocephalic, atraumatic EYES: Pupils equal, round [...] Stage F2 FibroTest Interpretation moderate fibrosis IMAGING: SPGES 11/2023: Findings: Static images demonstrate activity in [...] gallbladder. No biliary dilatation. ASSESSMENT AND PLAN: Dank Barahona is a 83 y.o. male with [...] daily. He will call if no improvement. Dank was seen today for difficulty swallowing and follow-up. Diagnoses and all orders for this visit: Fatty liver Gastroesophageal reflux disease, unspecified whether esophagitis present Chronic idiopathic constipation Follow up in 6 months or sooner if needed. GILBERTO Turcios [facility] [address] [place] [address] PH: [phone] /KAELYN Total time spent: 45 minutes Preparing to see the patient (e.g., review of tests) Obtaining and/or reviewing separately obtained history Performing a medically appropriate examination and/or evaluation Counseling and educating the patient/family/caregiver Ordering medications, tests, or procedures GILBERTO Prince 02/08/24 1225 documented in this encounter [facility] [employer] [facility] 02-08-2024 Instructions GILBERTO Prince - 02/08/2024 9:30 AM EDT PLAN: Start one capful of MiraLax daily. Reduce sugar foods, caffeine Continue Pantoprazole 40 mg daily at least 30 minutes before breakfast. Call if no improvement. Follow up in 6 months or sooner if needed. The following attachments cannot be sent through Care Everywhere.Nonalcoholic fatty liver disease (Faroese)documented in this encounter [facility] [employer] [facility] 12-30-2023 Hospital Discharge instructions Patient Education 12/30/2023 [...] treatment? Where to find more information The [employer]: www.cancer.org [place] [employer]: www.auanet.org Contact a health care [...] provider. Document Revised: 10/19/2021 Document Reviewed: 10/19/2021 [employer] Patient Education 2022 [employer]. Follow Up Care 11/19/2022 12:00:06 With:ALOK GARZON, Paula Isabel, URL Address: [facility] [address] , [place] [address]- [phone] When: Unknown Comments:1 yr w/ PSA [facility] 12-30-2023 Note Patient Education Oncology Prostate Cancer [...] Where to find more information ? The [employer]: www.cancer.org ? [employer]: www.auanet.org Contact a health care [...] of the rectum. (more content not included)... [facility] 08-01-2023 Miscellaneous Notes Pt Angie left message, returned call left message documented in this encounter [facility] 08-01-2023 Telephone encounter Note Pt Angie left message, returned call left message [facility] 11-19-2022 Hospital Discharge instructions Patient Education 11/19/2022 [...] urethra. Follow these instructions at home: Take ylgu-ifp-zripoav and prescription medicines only as told by [...] provider. Document Revised: 11/11/2021 Document Reviewed: 11/11/2021 [employer] Patient Education 2022 [employer]. Follow Up Care 11/16/2021 14:26:07 With:ALOK GARZON, RAYMUNDO Cortez Address: [facility] [address] , [place] [address]- When: Unknown [facility] 11-16-2021 Hospital Discharge instructions Patient Education 11/16/2021 [...] 04/25/2006 Document Revised: 01/12/2019 Document Reviewed: 03/25/2017 [employer] Patient Education 2020 [employer]. 11/16/2021 14:13:15 Benign Prostatic Hyperplasia Benign Prostatic [...] urethra. Follow these instructions at home: Take fzqb-qmh-xkqzbsz and prescription medicines only as told by [...] 04/25/2006 Document Revised: 03/20/2019 Document Reviewed: 05/30/2017 [employer] Patient Education 2020 [employer]. Follow Up Care 11/03/2020 12:25:53 With:ALOK GARZON, RAYMUNDO Cortez Address: [facility] [address] , [place] [address]- [phone] When:Within 1 Year(s) Comments:1 year rebel HACKETT [facility] note Future Appointments Appointment Date:11/19/2022 11:00:00 AM Scheduled Provider:Paula DUNCAN MD Location:[facility] Appointment Type:URO Office Visit Diagnostic Tests PendingPSA Total 11/16/21PSA Total 11/16/21 [facility] Plan note Future Appointments Appointment Date:11/21/2023 09:45:00 AM Scheduled Provider:Paula DUNCAN MD Location:[facility] Appointment Type:URO Office Visit Diagnostic Tests PendingPSA Total 10/08/23 [facility] + Plan note Future Appointments Appointment Date:12/31/2024 10:45:00 AM Scheduled Provider:Paula DUNCAN MD Location:[facility] Appointment Type:URO Office Visit Diagnostic Tests PendingPSA Total 12/30/23 [facility] note Diagnosis Fatty liver- Primary Other chronic nonalcoholic liver disease Gastroesophageal reflux disease, unspecified whether esophagitis present Chronic idiopathic constipation Unspecified constipation documented in this encounter [facility] Diagnosis Chronic obstructive pulmonary disease, unspecified COPD type (CMS-HCC)- Primary SOB (shortness of breath) Shortness of breath Emphysema (CMS-HCC) [facility] Diagnosis Preop pulmonary/respiratory exam- Primary Pre-operative respiratory examination Chronic obstructive pulmonary disease, unspecified COPD type (CMS-HCC) Current chronic use of systemic steroids documented in this encounter [facility] Narrative No data available for this section [facility] InstructionsNot on filedocumented in this encounter [facility] filedocumented in this encounter [facility] No data available for this section [facility] Summary Purpose Family History No Family History Records FoundNo Family History Records FoundNo Family History Records Found No data available for this section No Family History Records FoundNo Family History Records FoundNo Family History Records Found Advance Directives Date Activated Date Inactivated Comments 08/09/2023 5:48 PM 08/10/2023 2:14 PM Additional Source Comments (unrecognized sect ion and content) No Status Records FoundNo Status Records FoundNo Status Records FoundNo Status Records FoundNo Status Records FoundNo Status Records Found INFORMATION SOURCE (unrecogn ized section and content) DATE CREATED AUTHOR 11/02/2017 [facility] DATE CREATED AUTHOR AUTHOR'S ORGANIZ ATION 05/31/2021 [facility] DATE CREATED AUTHOR AUTHOR'S ORGANIZ ATION 04/30/2022 [facility] DATE CREATED AUTHOR AUTHOR'S ORGANIZ ATION 01/01/2024 [facility] DATE CREATED AUTHOR AUTHOR'S ORGANIZ ATION 02/09/2024 [facility] DATE CREATED AUTHOR AUTHOR'S ORGANIZ ATION 04/25/2024 [facility] Care Team (unrecognized sect ion and content) Account Management Specialist Relationship Specialty Start Date End Date Marzena Mccord APRN-CNP [address] [place] [address] PCP - General Family Medicine 07/18/18 Account Management Specialist Relationship Specialty Start Date End Date Marzena Mccord APRN-CNP [address] [facility] [place] [address] PCP - General Family Medicine 08/09/23 Account Management Specialist Relationship Specialty Start Date End Date Marzena Mccord APRN-CNP [address] [facility] [place] [address] PCP - General Family Medicine 08/09/23 Account Management Specialist Relationship Specialty Start Date End Date Marzena Mccord APRN-CNP [address] [facility] [place] [address] PCP - General Family Medicine 08/09/23 Reason for Visit (unrecogniz ed section and content) Reason Comments Difficulty Swallowing Follow-up hepatic steatosis -i tchy all over Reason Comments Follow-up Needs clearance for surgeryCXR: 04/13/24CT w/o contrast: 10/28/23PFT: 11/30/23 FOR RECORDS PERTAINING TO PATIENTS WHO ARE [...] BE BASED ON THE PRIMARY CLINICAL RECORDS. [facility]. provides no warranty or guarantee of the accuracy or completeness of information in this document.
--- NOTE | 2024-05-01 07:45 | ECG_ITS ---
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
== END 2024-05-01 07:34 | disposition home or self-care (01) ==
LOC: CARD 07:33
PROVIDERS: PCP Nurse Practitioner Family
DX: M43.17 Spondylolisthesis, lumbosacral region (principal)
CPT/HCPCS: 93005

== ENCOUNTER 2024-05-21 12:40 | Outpatient (OUT) | payer MEDICARE, SELFPAY ==
--- NOTE | 2024-05-21 12:44 | MR_ITS ---
[address] [address] Patient Name: MICHAEL LITTLE MRN: [id number] date: 1940 Sex: M Assigned Patient Location: MRI Current Patient Location: MRI Accession/Order Number: [id number] Exam Date: 05/21/2024 13:00 Report Date: 05/21/2024 15:16 At the request of: HATTIE ISAAC Procedure: MR lumbar spine wo con EXAMINATION: MR lumbar spine wo con HISTORY: spondyloisthesis, lumbosacral region COMPARISON: No relevant comparison available. TECHNIQUE: A variety of imaging planes and parameters were utilized for visualization of suspected pathology. FINDINGS: For the purposes of numbering, sagittal T2 image # 8 extends from the T11 vertebral body superiorly to the S2 level inferiorly. PARASPINAL AREA: Normal with no visible mass. BONES: Stable 1.1 cm anterolisthesis of L5 on S1 CORD/CAUDA EQUINA: Normal caliber, contour, and signal intensity. DISC LEVELS: 12-L1: No significant disc/facet abnormality, spinal stenosis, or foraminal stenosis. L1-L2: No significant disc/facet abnormality, spinal stenosis, or foraminal stenosis. L2-L3: No significant disc/facet abnormality, spinal stenosis, or foraminal stenosis. L3-L4: No significant disc/facet abnormality, spinal stenosis, or foraminal stenosis. L4-L5: No significant disc/facet abnormality, spinal stenosis, or foraminal stenosis. L5-S1: 1.1 cm anterolisthesis of L5 on S1 with bilateral pars interarticularis fractures. Severe disc space narrowing. Severe bilateral foraminal stenosis with no central canal stenosis MR/MR lumbar spine wo con IMPRESSION: Stable 1.1 cm anterolisthesis of L5 on S1 with severe bilateral foraminal stenosis Electronically authenticated by: ALEXEY MICHELLE Date: 05/21/2024 15:16
== END 2024-05-21 12:41 | disposition home or self-care (01) ==
LOC: MRI 12:40
PROVIDERS: PCP Nurse Practitioner Family
DX: M43.17 Spondylolisthesis, lumbosacral region (principal)
CPT/HCPCS: 72148

== ENCOUNTER 2024-05-30 13:45 | Outpatient (OUT) | payer MEDICARE, SELFPAY ==
--- NOTE | 2024-05-30 14:00 | CA_ITS ---
Patient Name: MICHAEL LITTLE MR#: [id number] : 1940 Exam Date: 05/30/2024 Ordering Doctor: FRANKLYN MCCORD LICENSED PRACTICAL VOCATIONAL NURSE ECHOCARDIOGRAM REPORT PROCEDURE: CA ECHO DOPPLER COMPLETE INDICATIONS: Pre-op testing, chronic diastolic heart failure, pulmonary hypertension, COPD COMPARISON: None. DESCRIPTION: COMPLETE ECHOCARDIOGRAM Real-time transthoracic echocardiography with 2D, M-mode, spectral and color flow Doppler performed. QUALITY: Technical quality was good. LEFT VENTRICLE: Normal chamber size. Proximal septal hypertrophy (sigmoid septum). LV EF: Global left ventricular systolic function is normal; visually estimated ejection fraction is 55 to 60%. No wall motion abnormalities. DIASTOLIC: Diastolic function is indeterminate. ATRIAL SEPTUM: Visually appears intact. LEFT ATRIUM: Normal chamber size. RIGHT ATRIUM: Normal chamber size. RIGHT VENTRICLE: Normal chamber size. Normal right ventricular systolic function. TRICUSPID VALVE: Normal mobility and thickness. No stenosis with trivial regurgitation. Doppler studies reveal mildly (35-45) elevated right sided pressures. RVSP 43 mmHg MITRAL VALVE: Normal mobility and thickness. No evidence of mitral valve stenosis. There is no mitral annular calcification. No mitral regurgitation. AORTIC VALVE: Normal trileaflet appearance. Mildly calcified aortic valve. Normal leaflet mobility. No evidence of aortic valve stenosis. No aortic regurgitation. AORTIC ROOT: Normal diameter and appearance. Ascending aorta is normal in size. PULMONIC VALVE: Normal thickness and mobility. No stenosis. Mild regurgitation. PERICARDIUM: Anterior free space; trivial effusion versus fat pad. IVC: IVC is normal in size, does not fully collapse. PLEURA: CONCLUSION: 1. Global left ventricular systolic function is normal; visually estimated ejection fraction is 55 to 60% 2. Normal right ventricular size and systolic function 3. Diastolic function is indeterminate 4. The left atrium is normal in size 5. Mildly elevated right ventricular systolic pressure; RVSP 43 mmHg 6. Mild pulmonic regurgitation 7. Anterior free space; trivial effusion versus fat pad Adult Echocardiography Procedure Report Left Ventricle LVEDD (3.7 - 5.6 cm): 4.01 cm LVESD (2.2 - 4.0 cm): 2.51 cm LVIVS thickness (0.6 - 1.2 cm): 1.42 cm LVPW thickness (0.5 - 1.0 cm): 0.54 cm e': 0.07 m/s E - e': 12.40 LVOT Max Gradient: 1.79 mm[Hg] LVOT Area (cm2): 0.67 m/s Peak Velocity (LVOT): 0.67 m/s Mean Velocity (LVOT): 0.44 m/s LVOT Diameter 2.07 cm Left Atrium Left Atrium Systolic Dimension: 3.27 cm Mitral Valve MV E to A Ratio: 0.91 Mitral Valve A-Wave Peak Velocity: 0.91 m/s Mitral Valve E-Wave Peak Velocity: 0.83 m/s Right Ventricle Aorta AO Root Diam: 3.47 cm Ascending Ao Diam: 2.77 cm Aortic Valve AoV Area (Peak John): 2.32 cm2, 2.32 cm2 AoV Area (VTI): 2.42 cm2, 2.42 cm2 Peak Velocity(Antegrade Flow): 0.97 m/s Peak Gradient(Antegrade Flow): 3.77 mm[Hg] Mean Velocity(Antegrade Flow): 0.65 m/s Mean Gradient(Antegrade Flow): 1.93 mm[Hg] Velocity Time Integral: 23.77 cm Tricuspid Valve Peak Velocity (Regurgitant Flow): 2.95 m/s Pulmonic Valve Mean Gradient: 3.18 mm[Hg] Mean Velocity: 0.83 m/s Peak Velocity: 1.27 m/s, 1.26 m/s Peak Gradient: 6.39 mm[Hg], 6.48 mm[Hg] Right Atrium Right Atrium Systolic Pressure: 36.10 ml, 36.10 ml Dictated by: Leroy Shipman M.D. on 05/31/2024 at 12:40 Approved by: Leroy Shipman M.D. on 05/31/2024 at 12:44
--- OUTSIDE RECORDS SUMMARY | 2024-05-30 14:00 | XMS_ITS | CCD ---
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 16632-8, 73012-8, 00849-5, 64896-8, PINR, 55101-0 #### [facility] ([id number]) [address] [place] [address] 58635 Erythrocyte distribution width (RBC) [Ratio] 13.9 % Normal 11.5-15.0 [facility] Comment on above: Performed By: #### C BCA, CMP, 03411-8, 39136-7, 39321-1, 37294-0, 12946-2, PINR, 43056-8 #### [facility] ([id number]) [address] [place] [address] 37457 Hematocrit (Bld) [Volume fraction] 42.3 % Normal 39-49 [facility] Comment on above: Performed By: #### C BCA, CMP, 62314-4, 30754-2, 66239-6, 94372-4, 26538-3, PINR, 34544-2 #### [facility] ([id number]) [address] [place] [address] 01330 Hemoglobin (Bld) [Mass/Vol] 14.5 g/dL Normal 13.0-17.0 [facility] Comment on above: Performed By: #### C BCA, CMP, 23299-9, 47106-1, 03554-3, 45083-1, 47234-0, PINR, 60306-3 #### [facility] ([id number]) [address] [place] [address] 18748 Lymphocytes (Bld) [#/Vol] 1.2 10*3/uL Normal 1.0-3.5 [facility] Comment on above: Performed By: #### C BCA, CMP, 23670-4, 73242-6, 71300-4, 45443-4, 44910-3, PINR, 09355-0 #### [facility] ([id number]) [address] [place] [address] 90390 Lymphocytes/100 WBC (Bld) 14.0 % Normal [facility] Comment on above: Performed By: #### C BCA, CMP, 19965-1, 23388-4, 03717-4, 95452-2, 82077-1, PINR, 26863-1 #### [facility] ([id number]) [address] [place] [address] 43723 MCH (RBC) [Entitic mass] 33.2 pg Normal 27-34 [facility] Comment on above: Performed By: #### C BCA, CMP, 71832-7, 14889-8, 80928-5, 68894-0, 56913-5, PINR, 22090-0 #### [facility] ([id number]) [address] [place] [address] 86220 MCHC (RBC) [Mass/Vol] 34.3 g/dL Normal 32-36 [facility] Comment on above: Performed By: #### C BCA, CMP, 13598-8, 47863-1, 50284-5, 48724-8, 12937-9, PINR, 00071-8 #### [facility] ([id number]) [address] [place] [address] 99719 MCV (RBC) [Entitic vol] 97 fL Normal 80-100 [facility] Comment on above: Performed By: #### C BCA, CMP, 86962-9, 71073-7, 04745-9, 24022-6, 07737-9, PINR, 94258-9 #### [facility] ([id number]) [address] [place] [address] 35639 Metamyelocytes/100 WBC (Bld) 1.0 % Normal [facility] Comment on above: Performed By: #### C BCA, CMP, 76402-6, 64975-5, 94307-5, 74309-6, 76304-9, PINR, 28477-2 #### [facility] ([id number]) [address] [place] [address] 60422 Monocytes (Bld) [#/Vol] 0.8 10*3/uL Normal 0-0.9 [facility] Comment on above: Performed By: #### C BCA, CMP, 23958-4, 29144-1, 99613-0, 91494-1, 11190-2, PINR, 05505-4 #### [facility] ([id number]) [address] [place] [address] 46021 Monocytes/100 WBC (Bld) 9.0 % Normal [facility] Comment on above: Performed By: #### C BCA, CMP, 71290-3, 32748-0, 91549-0, 61917-0, 16892-0, PINR, 88216-5 #### [facility] ([id number]) [address] [place] [address] 73227 MYELOCYTE 1.0 % Normal [facility] Comment on above: Performed By: #### C BCA, CMP, 75875-4, 13189-2, 86876-9, 66326-9, 75768-2, PINR, 32931-5 #### [facility] ([id number]) [address] [place] [address] 60370 Neutrophils (Bld) [#/Vol] 6.4 10*3/uL Normal 1.5-6.6 [facility] Comment on above: Performed By: #### C BCA, CMP, 75042-6, 54111-1, 29702-1, 33840-2, 73850-8, PINR, 53032-4 #### [facility] ([id number]) [address] [place] [address] 94904 Platelet mean volume (Bld) [Entitic vol] 9.0 fL Normal 7-12 [facility] Comment on above: Performed By: #### C BCA, CMP, 46550-9, 94389-0, 72720-7, 93223-5, 24220-1, PINR, 35728-7 #### [facility] ([id number]) [address] [place] [address] 40737 Platelets (Bld) [#/Vol] 241 10*3/uL Normal 150-450 [facility] Comment on above: Performed By: #### C BCA, CMP, 14581-1, 48256-7, 81772-6, 58068-3, 20344-4, PINR, 82700-7 #### [facility] ([id number]) [address] [place] [address] 47288 RBC COUNT 4.37 X10E12/L Normal 4.10-5.70 [facility] Comment on above: Performed By: #### C BCA, CMP, 62201-6, 78031-0, 42912-9, 99824-5, 00835-8, PINR, 17621-0 #### [facility] ([id number]) [address] [place] [address] 12697 SEG NEUTROPHIL 73.0 % Normal [facility] Comment on above: Performed By: #### C BCA, CMP, 26751-0, 30694-3, 91020-9, 08912-9, 72926-8, PINR, 33783-7 #### [facility] ([id number]) [address] [place] [address] 33393 TEARDROP 1+ Abnormal NONE [facility] Comment on above: Performed By: #### C BCA, CMP, 55175-7, 67677-2, 27474-4, 83211-1, 17426-4, PINR, 60762-9 #### [facility] ([id number]) [address] [place] [address] 83677 WBC (Bld) [#/Vol] 8.8 10*3/uL Normal 4.0-11.0 [facility] Comment on above: Performed By: #### C BCA, CMP, 37947-0, 57907-5, 33856-6, 66050-3, 08000-2, PINR, 21542-8 #### [facility] ([id number]) [address] [place] [address] 54524 COMPREHENSIVE METABOLIC PANE Johnny 08-09-2023 Albumin [Mass/Vol] 4.0 g/dL Normal 3.2-5.3 [facility] Comment on above: Performed By: #### C BCA, CMP, 55928-2, 23757-0, 05451-1, 35117-2, 13168-3, PINR, 12386-7 #### [facility] ([id number]) [address] [place] [address] 86052 ALP [Catalytic activity/Vol] 37 U/L Low 39-130 [facility] Comment on above: Performed By: #### C BCA, CMP, 29883-2, 34408-6, 04902-5, 12567-5, 90652-2, PINR, 17561-0 #### [facility] ([id number]) [address] [place] [address] 78297 ALT [Catalytic activity/Vol] 27 U/L Normal 0-40 [facility] Comment on above: Performed By: #### C BCA, CMP, 72831-9, 57104-1, 98142-8, 87785-5, 48218-5, PINR, 33791-8 #### [facility] ([id number]) [address] [place] [address] 13426 Anion gap [Moles/Vol] 5 mmol/L Normal 5-15 [facility] Comment on above: Performed By: #### C BCA, CMP, 35393-0, 46765-4, 61221-2, 92256-1, 77616-3, PINR, 32332-8 #### [facility] ([id number]) [address] [place] [address] 09365 AST [Catalytic activity/Vol] 24 U/L Normal 0-41 [facility] Comment on above: Performed By: #### C BCA, CMP, 49487-0, 90859-6, 78708-9, 82559-4, 28680-7, PINR, 02695-5 #### [facility] ([id number]) [address] [place] [address] 49263 Bilirubin [Mass/Vol] 0.7 mg/dL Normal 0.3-1.2 [facility] Comment on above: Performed By: #### C BCA, CMP, 25247-0, 58808-0, 37438-4, 99696-7, 63641-3, PINR, 47461-1 #### [facility] ([id number]) [address] [place] [address] 93438 Calcium [Mass/Vol] 8.7 mg/dL Normal 8.5-10.5 [facility] Comment on above: Performed By: #### C BCA, CMP, 30372-3, 34245-4, 54743-0, 44471-3, 36147-1, PINR, 81245-6 #### [facility] ([id number]) [address] [place] [address] 57127 Chloride [Moles/Vol] 107 mmol/L Normal 98-109 [facility] Comment on above: Performed By: #### C BCA, CMP, 39356-7, 95930-7, 48659-1, 15748-4, 58601-9, PINR, 92072-1 #### [facility] ([id number]) [address] [place] [address] 00153 CO2 [Moles/Vol] 24 mmol/L Normal 22-32 [facility] Comment on above: Performed By: #### C BCA, CMP, 38125-7, 02992-7, 62841-8, 76790-1, 66626-4, PINR, 26735-0 #### [facility] ([id number]) [address] [place] [address] 03438 Creatinine [Mass/Vol] 1.00 mg/dL Normal 0.70-1.20 [facility] Comment on above: Result Comment: METH OD TRACEABLE TO IDMS STANDARD Performed By: #### C BCA, CMP, 44787-5, 56616-9, 15795-9, 60918-9, 00658-6, PINR, 58311-3 #### [facility] ([id number]) [address] [place] [address] 10815 GFR/1.73 sq M.predicted among non-blacks MDRD (S/P/Bld) [Vol rate/Area] 74 mL/min/{1.73_m2} Normal >59 [facility] Comment on above: Result Comment: Reported eGFR is based on the CKD-EPI 2020 equation that does not use a race coefficient. Performed By: #### C BCA, CMP, 72317-2, 90466-9, 56130-3, 63748-7, 14041-4, PINR, 37838-0 #### [facility] ([id number]) [address] [place] [address] 47522 Glucose [Mass/Vol] 100 mg/dL High 65-99 [facility] Comment on above: Performed By: #### C BCA, CMP, 43204-3, 09878-3, 35733-4, 08419-5, 08060-9, PINR, 10980-3 #### [facility] ([id number]) [address] [place] [address] 26838 Potassium [Moles/Vol] 3.9 mmol/L Normal 3.5-5.0 [facility] Comment on above: Performed By: #### C BCA, CMP, 02493-3, 66567-3, 71984-9, 82797-5, 14024-0, PINR, 07512-6 #### [facility] ([id number]) [address] [place] [address] 68168 Protein [Mass/Vol] 6.7 g/dL Normal 6.0-8.0 [facility] Comment on above: Performed By: #### C BCA, CMP, 06686-6, 02122-4, 82064-8, 64918-0, 96181-8, PINR, 19192-1 #### [facility] ([id number]) [address] [place] [address] 21808 Sodium [Moles/Vol] 136 mmol/L Normal 134-146 [facility] Comment on above: Performed By: #### C BCA, CMP, 73206-7, 44853-7, 82742-1, 99518-9, 09962-9, PINR, 17561-0 #### [facility] ([id number]) [address] [place] [address] 34106 Urea nitrogen [Mass/Vol] 19 mg/dL Normal 5-27 [facility] Comment on above: Performed By: #### C BCA, CMP, 50511-1, 87098-1, 16062-2, 85435-4, 29268-3, PINR, 59906-4 #### [facility] ([id number]) [address] [place] [address] 82966 Fibrin D-dimer DDU (PPP) [Ma ss/Vol]on 08-09-2023 D DIMER <150 Normal <255 [facility] Comment on above: Result Comment: Results <255 ng/mL DDU: The presence of a VTE can safely be excluded with a negative D-Dimer result and Wells score. A negative result doesn't exclude the possibility of DIC. The test be repeated along with other diagnostic tests if the patient's symptoms persist or worsen. [email or web address] Performed By: #### C BILLIE, BUDDY, 77857-1, 84704-5, 52087-1, 28385-9, 13349-2, PINR, 60358-7 #### [facility] ([id number]) [address] [place] [address] 43466 Lactate (P antonette) [Moles/Vol]o n 08-09-2023 LACTATE W/REFLEX 1.3 mmol/L Normal 0.4-2.0 [facility] Comment on above: Result Comment: Result did not trigger repeat Lactate, re-order if needed. Performed By: #### C BILLIE, CMP, 83696-3, 02472-3, 68889-8, 29495-6, 12457-9, PINR, 42338-1 #### [facility] ([id number]) [address] [place] [address] 80042 MAGNESIUMon 08-09-2023 Magnesium [Mass/Vol] 2.3 mg/dL Normal 1.8-2.6 [facility] Comment on above: Performed By: #### C BILLIE, CMP, 91779-6, 80869-6, 96771-9, 14126-8, 47322-2, PINR, 41903-8 #### [facility] ([id number]) [address] [place] [address] 40576 Natriuretic peptide B [Mass/ Vol]on 08-09-2023 Natriuretic peptide B (Bld) [Mass/Vol] 79 pg/mL Normal <100.0 [facility] Comment on above: Performed By: #### C BCA, CMP, 00716-7, 70392-8, 88416-4, 83004-1, 47099-8, PINR, 53270-8 #### [facility] ([id number]) [address] [place] [address] 08017 PROTIME AND INRon 08-09-2023 INR Coag (PPP) [Relative time] 1.1 {INR} Normal 0.8-1.1 [facility] Comment on above: Performed By: #### C BCA, CMP, 52692-5, 93697-5, 40239-6, 95768-9, 03139-5, PINR, 82633-6 #### [facility] ([id number]) [address] [place] [address] PT Coag (PPP) [Time] 13.0 s Normal 9.8-13.2 [facility] Comment on above: Result Comment: NEW REFERENCE RANGE Performed By: #### C BCA, CMP, 84230-0, 87513-2, 86438-0, 26063-5, 26577-7, PINR, 09619-8 #### [facility] ([id number]) [address] [place] [address] SARS/FLU A+B/RSV by NAAT/Mol ecularon 08-09-2023 SARS/FLU [...] operators who are performing tests using either [employer] or [place] systems and is limited to laboratories that [...] repeat. Fact Sheet for Healthcare Providers: https://www.fda.gov/me shiva/682806/download Fact Sheet for Patients: https://www.fda.gov/me shiva/879523/download Normal [facility] Comment on above: Performed By: #### C OVFLR ####[facility] ([id number])[address] [place] [address] 06860 TROPONIN Ion 08-09-2023 Troponin I.cardiac [Mass/Vol] ng/mL Normal 0.00-0.04 [facility] Comment on above: Performed By: #### C BCA, CMP, 38673-6, 16781-2, 65617-9, 24945-7, 45325-1, PINR, 78146-4 #### [facility] ([id number]) [address] [place] [address] 06524 XR CHEST 1 VWon 08-09-2023 XR CHEST [...] Gurdeep Strong on 08/09/2023 4:09 PM Normal [facility] aPTT Coag (PPP) [Time]on aPTT Coag (Bld) [Time] 32 s Normal 26-37 [facility] Comment on above: Result Comment: NEW REFERENCE RANGE Performed By: #### C BCA, CMP, 11244-9, 35547-0, 87388-6, 10501-9, 28069-6, PINR, 76762-5 ####[facility] ([id number])[address] [place] [address] 73137 XR CHEST 2 VWSon 08-02-2023 XR CHEST [...] Goodwin MD on 08/02/2023 4:01 PM Normal [facility] XR LSPINE MIN 4 VIEWSon [...] ALEXEY MICHELLE Date: 2021-11-04 07:45 Normal [facility] CBC AUTO DIFFon 10-21-2021 BASO # 0.1 103/ul Normal 0.0-0.1 [facility] Comment on above: Performed By: #### C BC #### [facility] [address] [place] [address] Dr. Vannessa Quiroga Basophils/100 WBC (Bld) 1.1 % Normal 0.2-2.0 [facility] Comment on above: Performed By: #### C BC #### [facility] [address] [address] [address] Vannessa Quiroga EO # 0.2 103/ul Normal 0.0-0.7 [facility] Comment on above: Performed By: #### C BC #### [facility] [address] [place] [address] Dr. Vannessa Quiroga Eosinophils/100 WBC (Bld) 3.4 % Normal 0.9-7.0 [facility] Comment on above: Performed By: #### C BC #### [facility] [address] [place] [address] Dr. Vannessa Quiroga Erythrocyte distribution width (RBC) [Ratio] 13.0 % Normal 11.0-15.0 [facility] Comment on above: Performed By: #### C BC #### [facility] [address] [place] [address] Dr. Vannessa Quiroga Hematocrit (Bld) [Volume fraction] 45.1 % Normal 42.0-54.0 [facility] Comment on above: Performed By: #### C BC #### [facility] [address] [place] [address] Dr. Vannessa Quiroga Hemoglobin (Bld) [Mass/Vol] 15.0 g/dL Normal 14.0-18.0 [facility] Comment on above: Performed By: #### C BC #### [facility] [address] [place] [address] Dr. Vannessa Quiroga IG # 0.07 10e3/ul Critically high 0.00-0.03 [facility] Comment on above: Performed By: #### C BC #### [facility] [address] [address] [address] Vannessa Quiroga IG % 1.3 % Critically high 0.0-0.5 [facility] Comment on above: Performed By: #### C BC #### [facility] [address] [address] [address] Vannessa Quiroga LYMPH # 0.9 103/ul Critically low 1.2-3.8 [facility] Comment on above: Performed By: #### C BC #### [facility] [address] [place] [address] Dr. Vannessa Quiroga Lymphocytes/100 WBC (Bld) 17.2 % Critically low 20.5-60.0 [facility] Comment on above: Performed By: #### C BC #### [facility] [address] [place] [address] Dr. Vannessa Quiroga MANUAL DIFF REQ NO Normal [facility] Comment on above: Performed By: #### C BC #### [facility] [address] [place] [address] Dr. Vannessa Quiroga MCH (RBC) [Entitic mass] 31.3 pg Normal 25.9-34.0 [facility] Comment on above: Performed By: #### C BC #### [facility] [address] [place] [address] Dr. Vannessa Quiroga MCHC (RBC) [Mass/Vol] 33.3 g/dL Normal 29.9-35.2 [facility] Comment on above: Performed By: #### C BC #### [facility] [address] [place] [address] Dr. Vannessa Quiroga MCV (RBC) [Entitic vol] 94.2 fL Critically high 80.0-94.0 [facility] Comment on above: Performed By: #### C BC #### [facility] [address] [place] [address] Dr. Vannessa Quiroga MONO # 0.6 103/ul Normal 0.3-0.8 [facility] Comment on above: Performed By: #### C BC #### [facility] [address] [place] [address] Dr. Vannessa Quiroga Monocytes/100 WBC (Bld) 11.2 % Normal 1.7-12.0 [facility] Comment on above: Performed By: #### C BC #### [facility] [address] [place] [address] Dr. Vannessa Quiroga NEUT # 3.5 103/ul Normal 1.4-6.5 [facility] Comment on above: Performed By: #### C BC #### [facility] [address] [place] [address] Dr. Vannessa Quiroga Neutrophils/100 WBC (Bld) 65.8 % Normal 43.0-75.0 [facility] Comment on above: Performed By: #### C BC #### [facility] [address] [place] [address] Dr. Vannessa Quiroga Platelet mean volume (Bld) [Entitic vol] 9.9 fL Normal 9.5-13.5 [facility] Comment on above: Performed By: #### C BC #### [facility] [address] [place] [address] Dr. Vannessa Quiroga PLT 175 103/ul Normal 150-450 [facility] Comment on above: Performed By: #### C BC #### [facility] [address] [place] [address] Dr. Vanenssa Quiroga RBC 4.79 106/ul Normal 4.70-6.10 [facility] Comment on above: Performed By: #### C BC #### [facility] [address] [place] [address] Dr. Vannessa Quiroga WBC 5.4 103/ul Normal 4.0-11.0 [facility] Comment on above: Performed By: #### C BC #### [facility] [address] [place] [address] Dr. Vannessa Quiroga FREE T3on 10-21-2021 FREE T3 2.13 pg/mlL Critically low 2.18-3.98 [facility] Comment on above: Performed By: #### T SH, CMP, LIPID, FT3, T4 #### [facility] [address] [address] [address] Vannessa Quiroga GLYCOHEMOGLOBIN A1Con 2021 ADA RECOMMENDATION SEE BELOW Normal [facility] Comment on above: Result Comment: ADA RECOMMENDED LIMIT 4.0 - 6.0 ADA THERAPEUTIC TARGET < 7.0 ACTION SUGGESTED > 7.0 Performed By: #### A 1C #### [facility] [address] [address] [address] Vannessa Quiroga Glucose [Mass/Vol] 120 mg/dL Normal [facility] Comment on above: Performed By: #### A 1C #### [facility] [address] [address] [address] Vannessa Quiroga HbA1c (Bld) [Mass fraction] 5.8 % Normal 4.5-6.2 [facility] Comment on above: Performed By: #### A 1C #### [facility] [address] [place] [address] Dr. Vannessa Quiroga LIPID PROFILEon 10-21-2021 CHOL-HDL RATIO NORM SEE BELOW Normal [facility] Comment on above: Result Comment: 3.3 - 4.4 LOW RISK 4.4 - 7.1 AVERAGE RISK 7.1 - 11.0 MODERATE RISK >11.0 HIGH RISK Performed By: #### T SH, CMP, LIPID, FT3, T4 #### [facility] [address] [address] [address] Vannessa Quiroga Cholesterol [Mass/Vol] 172 mg/dL Normal <=200 [facility] Comment on above: Performed By: #### T SH, CMP, LIPID, FT3, T4 #### [facility] [facility] [address] [address] [address] Vannessa Quiroga Cholesterol in HDL [Mass/Vol] 30 mg/dL Critically low 40-60 [facility] Comment on above: Performed By: #### T SH, CMP, LIPID, FT3, T4 #### [facility] [address] [address] [address] Vannessa Quiroga Cholesterol in LDL [Mass/Vol] 102.2 mg/dL Normal [facility] Comment on above: Performed By: #### T SH, CMP, LIPID, FT3, T4 #### [facility] [address] [address] [address] Vannessa Quiroga Cholesterol.total/Ch olesterol in HDL [Mass ratio] 5.7 {ratio} Normal [facility] Comment on above: Performed By: #### T SH, CMP, LIPID, FT3, T4 #### [facility] [address] [address] [address] Vannessa Quiroga HDL NORMAL > or = 60 mg/dl - LO W CARDIOVASCULAR RISK <40 mg/dl - HIGH CARDIOVASCULAR RISK Normal [facility] Comment on above: Performed By: #### T SH, CMP, LIPID, FT3, T4 #### [facility] [address] [address] [address] Vannessa Quiroga LDL CALC NORMAL SEE BELOW Normal [facility] Comment on above: Result Comment: <100 mg/dl OPTIMAL 100 - 129 mg/dl NEAR OR ABOVE OPTIMAL 130 - 159 mg/dl BORDERLINE HIGH 160 - 189 mg/dl HIGH >190 mg/dl VERY HIGH Performed By: #### T SH, CMP, LIPID, FT3, T4 #### [facility] [address] [address] [address] Vannessa Quiroga Triglyceride [Mass/Vol] 199 mg/dL Critically high <=150 [facility] Comment on above: Performed By: #### T SH, CMP, LIPID, FT3, T4 #### [facility] [address] [address] [address] Vannessa Quiroga VLDL CALC 39.8 mg/dL Normal [facility] Comment on above: Performed By: #### T SH, CMP, LIPID, FT3, T4 #### [facility] [address] [address] [address] Vannessa Quiroga PROF 14(COMP METB)on 022 Albumin [Mass/Vol] 3.6 g/dL Normal 3.4-5.0 [facility] Comment on above: Performed By: #### T SH, CMP, LIPID, FT3, T4 #### [facility] [address] [place] [address] Dr. Vannessa Quiroga Albumin/Globulin [Mass ratio] 1.2 {ratio} Normal [facility] Comment on above: Performed By: #### T SH, CMP, LIPID, FT3, T4 #### [facility] [address] [address] [address] Vannessa Quiroga ALP [Catalytic activity/Vol] 50 U/L Normal 46-116 [facility] Comment on above: Performed By: #### T SH, CMP, LIPID, FT3, T4 #### [facility] [address] [place] [address] Dr. Vannessa Quiroga ALT [Catalytic activity/Vol] 25 U/L Normal 16-63 [facility] Comment on above: Performed By: #### T SH, CMP, LIPID, FT3, T4 #### [facility] [address] [place] [address] Dr. Vannessa Quiroga Anion gap [Moles/Vol] 13.9 mmol/L Normal [facility] Comment on above: Performed By: #### T SH, CMP, LIPID, FT3, T4 #### [facility] [address] [place] [address] Dr. Vannessa Quiroga AST [Catalytic activity/Vol] 12 U/L Critically low 15-37 [facility] Comment on above: Performed By: #### T SH, CMP, LIPID, FT3, T4 #### [facility] [address] [place] [address] Dr. Vannessa Quiroga Bilirubin [Mass/Vol] 0.5 mg/dL Normal 0.2-1.0 [facility] Comment on above: Performed By: #### T SH, CMP, LIPID, FT3, T4 #### [facility] [address] [place] [address] Dr. Vannessa Quiroga Calcium [Mass/Vol] 8.5 mg/dL Normal 8.5-10.1 [facility] Comment on above: Performed By: #### T SH, CMP, LIPID, FT3, T4 #### [facility] [address] [place] [address] Dr. Vannessa Quiroga Chloride [Moles/Vol] 107 mmol/L Normal 98-107 [facility] Comment on above: Performed By: #### T SH, CMP, LIPID, FT3, T4 #### [facility] [address] [place] [address] Dr. Vannessa Quiroga CO2 [Moles/Vol] 25.3 mmol/L Normal 21.0-32.0 [facility] Comment on above: Performed By: #### T SH, CMP, LIPID, FT3, T4 #### [facility] [address] [place] [address] Dr. Vannessa Quiroga Creatinine [Mass/Vol] 1.09 mg/dL Normal 0.70-1.30 [facility] Comment on above: Performed By: #### T SH, CMP, LIPID, FT3, T4 #### [facility] [address] [place] [address] Dr. Vannessa Quiroga EGFR-AF [place]LANDER >60 Normal >=60 [facility] Comment on above: Performed By: #### T SH, CMP, LIPID, FT3, T4 #### [facility] [address] [place] [address] Dr. Vannessa Quiroga EGFR-NON AF [place] >60 Normal >=60 [facility] Comment on above: Performed By: #### T SH, CMP, LIPID, FT3, T4 #### [facility] [address] [place] [address] Dr. Vannessa Quiroga Globulin (S) [Mass/Vol] 3.0 g/dL Normal [facility] Comment on above: Performed By: #### T SH, CMP, LIPID, FT3, T4 #### [facility] [address] [place] [address] Dr. Vannessa Quiroga Glucose [Mass/Vol] 115 mg/dL Critically high 74-106 [facility] Comment on above: Performed By: #### T SH, CMP, LIPID, FT3, T4 #### [facility] [address] [place] [address] Dr. Vannessa Quiroga Potassium [Moles/Vol] 4.2 mmol/L Normal 3.5-5.1 [facility] Comment on above: Performed By: #### T SH, CMP, LIPID, FT3, T4 #### [facility] [address] [place] [address] Dr. Vannessa Quiroga Protein [Mass/Vol] 6.6 g/dL Normal 6.4-8.[address] [facility] Comment on above: Performed By: #### T SH, CMP, LIPID, FT3, T4 #### [facility] [address] [place] [address] Dr. Vannessa Quiroga Sodium [Moles/Vol] 142 mmol/L Normal 136-[address] [facility] Comment on above: Performed By: #### T SH, CMP, LIPID, FT3, T4 #### [facility] [address] [place] [address] Dr. Vannessa Quiroga Urea nitrogen [Mass/Vol] 12.0 mg/dL Normal 7.0-18.0 [facility] Comment on above: Performed By: #### T SH, CMP, LIPID, FT3, T4 #### [facility] [address] [place] [address] Dr. Vannessa Quiroga Urea nitrogen/Creatinine [Mass ratio] 11.0 mg/mg Normal [facility] Comment on above: Performed By: #### T SH, CMP, LIPID, FT3, T4 #### [facility] [address] [place] [address] Dr. Vannessa Quiroga T4on 10-21-2021 T4 [Mass/Vol] 7.60 ug/dL Normal 4.50-12.10 [facility] Comment on above: Performed By: #### T SH, CMP, LIPID, FT3, T4 #### [facility] [address] [place] [address] Dr. Vannessa Quiroga TSHon 10-21-2021 TSH 4.103 uIU/mL Critically high 0.358-3.[address] [facility] Comment on above: Performed By: #### T SH, CMP, LIPID, FT3, T4 #### [facility] [address] [place] [address] Dr. Vannessa Quiroga B-Type Natriuretic Peptideon 12-01-2020 Natriuretic peptide B (Bld) [Mass/Vol] 32.0 pg/mL Normal 5-100 [facility] Comment on above: Result Comment: PERF ORMED BY: [place] [address] PATHOLOGIST [employer] GUILHERME BRADFORD M.D. Performed By: #### C MP, BNP, CBC, HS TROP #### [address] Basic Metabolic Panelon 11-07 Calcium [Mass/Vol] 9.0 mg/dL Normal 8.2-10.2 [facility] Comment on above: Performed By: #### B MP, CKMB, HS TROP, CK, CBCNO #### [address] Chloride [Moles/Vol] 106 mmol/L Normal 95-114 [facility] Comment on above: Performed By: #### B MP, CKMB, HS TROP, CK, CBCNO #### [address] CO2 [Moles/Vol] 20.1 mmol/L Low 22.0-30.0 [facility] Comment on above: Performed By: #### B MP, CKMB, HS TROP, CK, CBCNO #### [address] Creatinine [Mass/Vol] 1.02 mg/dL Normal 0.64-1.27 [facility] Comment on above: Performed By: #### B MP, CKMB, HS TROP, CK, CBCNO #### [address] Creatinine Clr Calc Pharmacy 55.48 [facility] Comment on above: Result Comment: PERF ORMED BY: [place] [address] PATHOLOGIST [employer] GUILHERME BRADFORD M.D. Performed By: #### B MP, CKMB, HS TROP, CK, CBCNO #### [address] Estimated GFR ( Kacie > 60 Normal [facility] Comment on above: Result Comment: GFR estimated reference range: According to KDOQI guidelines, <60 ml/min/1.73m2 is sufficient to diagnose a patient with chronic kidney disease. Performed By: #### B MP, CKMB, HS TROP, CK, CBCNO #### [facility] [address] [place] [address] [place] Estimated GFR (Non- Am > 60 Normal [facility] Comment on above: Performed By: #### B MP, CKMB, HS TROP, CK, CBCNO #### [facility] [address] [place] [address] [place] Glucose [Mass/Vol] 120 mg/dL High 70-100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 GRINDING WHEEL FACER-RENAL DIETITIAN Work Phone: [facility] 02-19-2014 influenza, seasonal, injectable Ban Bill GRINDING WHEEL FACER-RENAL DIETITIAN Work Phone: [facility] 03-14-2013 influenza virus vacc ine, whole virus Ban Bill GRINDING WHEEL FACER-RENAL DIETITIAN Work Phone: [facility] 02-23-2012 influenza virus vacc ine, whole virus Ban Bill GRINDING WHEEL FACER-RENAL DIETITIAN Work Phone: [facility] 02-25-2011 influenza virus vacc ine, whole virus Ban Bill GRINDING WHEEL FACER-RENAL DIETITIAN Work Phone: [facility] 11-10-2010 pneumococcal polysaccharide vaccine, 23 valent Ban Bill GRINDING WHEEL FACER-RENAL DIETITIAN Work Phone: [facility] Payers Date Payer Category Payer Medicare ANTHEM MEDICARE [facility] MEDICARE ADVANTAGE [id number] 2016-Present [phone] [address] [place] [address] [id number] 2016 Medicare HMO [employer]M MEDICARE [id number] 1959 Unknown [id number] 1938 Unknown [id number] 2.16.840.1.019221.3.579.2.59 3 1938 Unknown [id number] 2.16.840.1.623102.3.579.2.59 3 1938 Unknown [id number] 2.16.840.1.865235.3.579.2.59 3 1938 Unknown [id number] 2.16.840.1.327134.3.579.2.59 3 1938 Unknown [id number] 2.16.840.1.759644.3.579.2.72 7 1938 Unknown [id number] 2.16.840.1.272481.3.579.2.72 7 1938 Unknown [id number] 2.16.840.1.398186.3.579.2.12 86 1938 Unknown [id number] 2.16.840.1.827110.3.579.2.12 86 1938 Unknown [id number] 2.16.840.1.710218.3.579.2.12 86 1938 Unknown [id number] 2.16.840.1.241547.3.579.2.12 86 1938 Unknown [id number] 2.16.840.1.750023.3.579.2.12 86 1938 Unknown [id number] 2.16.840.1.874270.3.579.2.12 86 1938 Unknown [id number] 2.16.840.1.680664.3.579.2.12 86 1938 Unknown [id number] 2.16.840.1.510919.3.579.2.12 86 1938 Unknown [id number] 2.16.840.1.808841.3.579.2.12 86 1938 Unknown [id number] 2.16.840.1.953442.3.579.2.12 86 1938 Unknown [id number] 2.16.840.1.778555.3.579.2.12 86 1938 Unknown [id number] 2.16.840.1.992252.3.579.2.12 86 1938 Unknown [id number] 2.16.840.1.994117.3.579.2.12 86 1938 Unknown [id number] 2.16.840.1.791112.3.579.2.12 86 1938 Unknown [id number] 2.16.840.1.900901.3.579.2.12 86 1938 Unknown [id number] 2.16.840.1.937583.3.579.2.12 86 1938 Unknown [id number] 2.16.840.1.544802.3.579.2.12 86 1938 Unknown [id number] 2.16.840.1.253668.3.579.2.12 86 1938 Unknown [id number] 2.16.840.1.244224.3.579.2.12 86 1938 Unknown [id number] 2.16.840.1.641271.3.579.2.12 86 1938 Unknown [id number] 2.16.840.1.657616.3.579.2.12 86 1938 Unknown [id number] 2.16.840.1.159034.3.579.2.12 86 1938 Unknown [id number] 2.16.840.1.241662.3.579.2.12 86 1938 Unknown [id number] 2.16.840.1.633819.3.579.2.12 86 Unknown Social History Date Type Detail Facility Start: 01-08-2020 End: 03-01-2022 Tobacco smoking status Ex-smoker (finding) [facility] Start: 06-19-2020 End: 04-04-2023 Sex Assigned At Male [facility] History of tobacco use Current smoker [facility] Start: 03-01-2022 Tobacco use and exposure Smokeless tobacco non-user [facility] Start: 04-04-2023 End: 04-30-2024 Alcohol intake Current non-drinker of alcohol (finding) [facility] Start: 06-19-2020 End: 04-04-2023 Alcohol intake [facility] Childcare Unknown [facility] Start: 1940 Sex Assigned At Not on file [facility] Has the [employer], [employer], or [employer] threatened to shut off services in your home in past 12Mo No [facility] Start: 1940 Sex assigned at Male P [facility] Start: 08-09-2023 Gender identity Identifies as male gender (finding) [facility] Start: 08-09-2023 Sexual orientation Heterosexual (fin ding) [facility] Start: 12-12-2014 Sex Male (finding) [facility] Goals Date Patient Goal Desired Activity /State Personal health goal Comment on above: Formatting of this n ote might be different from the original. Evaluation of progress towards goal: home Functional Status Date Assessment Result Facility 12-30-2023 Functional Status N/A [facility] 11-19-2022 Functional Status N/A [facility] 11-16-2021 Functional Status N/A [facility] Clinical Notes 11-16-2021 to 04-30-2024 Edwige Delaney MD - 04/30/2024 3:00 PM ESTPatient InstructionsTelephone Encounter - Rosa Elena Melendez - 04/18/2024 12:34 PM ESTTelephone Encounter - RADHA Neumann - 04/18/2024 12:34 PM EST Note Date & Type Note Facility 04-30-2024 History of Present illness Narrative Images from the original note were not included. [address] [place] [address] Patient: Dank Barahona Date of : 1940 [...] Extensive nicotine use history, 50 pyh, quit 2005 Plan: 1. Continue on prednisone 5 mg 2. 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 Intermediate risk for perioperative pulmonary complications, not prohibitive for surgery 4. Follow up in 6 month Edwige Delaney MD Pulmonary and Sleep Medicine [facility] Past Medical, Family, and Social History Update: The following portions of the patient's history were reviewed and updated as appropriate: allergies, current medications, past family history, past medical history, past social history, past surgical history and problem list. Past Medical History: Diagnosis Date Abnormal EKG 01/21/2017 Benign prostatic hyperplasia with urinary obstruction 08/09/2023 Chronic gastritis COPD (chronic obstructive pulmonary disease) ([facility]) COPD exacerbation ([facility]) 08/09/2023 COVID-19 05/25/2020 Esophagitis GERD (gastroesophageal reflux disease) Hypothyroidism 08/09/2023 On home oxygen therapy Prostate cancer ([facility]) 07/27/2016 Pulmonary hypertension ([facility]) 01/21/2017 Shortness of breath 01/21/2017 Past Surgical [...] drinks of [facility] Instructions Edwige Delaney MD - 04/30/2024 3:00 PM EST 1. Continue on prednisone 5 mg 2. 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 Intermediate risk for perioperative pulmonary complications, not prohibitive for surgery 4. Follow up in 6 month [facility] Miscellaneous Notes Pt's doctors office LVM requesting pulmonary clearance for surgery scheduled on 05/16/2024. Please call Uma back to discuss at [phone], option 3, extension [phone]. Thank you! Heater Operator called Uma back and left voicemail requesting a return call. Uma called office back and informed her that we would call patient and try to get him in on 04/30/2024. Uma verbalized understanding and asked that we call her once he is scheduled. Heater Operator verbalized understanding. Heater Operator called patient and spoke with his /HIPAA, Angie, offered 3pm on 04/30/2024 for pulmonary clearance. Angie confirmed appointment date and time. Heater Operator called Uma back and left voicemail informing her of date and time. Asked that Uma fax over the clearance request form for KW to sign off on to [phone]. Chest xray only please Order for CXR placed, curriculum writer called patient and spoke to his /HIPAA, Angie, informed her that JOSÉ would like CXR completed prior to his appointment with her on 04/30/2024, Angie verbalized understanding. [facility] Telephone encounter Note Pt's doctors office LVM requesting pulmonary clearance for surgery scheduled on 05/16/2024. Please call Uma back to discuss at [phone], option 3, extension [phone]. Thank you! [facility] 04-18-2024 Telephone encounter Note Heater Operator called Uma back and left voicemail requesting a return call. [facility] 04-18-2024 Telephone encounter Note Uma called office back and informed her that we would call patient and try to get him in on 04/30/2024. Uma verbalized understanding and asked that we call her once he is scheduled. Heater Operator verbalized understanding. [facility] 04-18-2024 Telephone encounter Note Heater Operator called patient and spoke with his /HIPAA, Angie, offered 3pm on 04/30/2024 for pulmonary clearance. Angie confirmed appointment date and time. [facility] 04-18-2024 Telephone encounter Note Heater Operator called Uma back and left voicemail informing her of date and time. Asked that Uma fax over the clearance request form for KW to sign off on to [phone]. [facility] 04-18-2024 Telephone encounter Note Chest xray only please [facility] 04-18-2024 Telephone encounter Note Order for CXR placed, curriculum writer called patient and spoke to his /HIPAA, Angie, informed her that JOSÉ would like CXR completed prior to his appointment with her on 04/30/2024, Angie verbalized understanding. [facility] 02-08-2024 History of Present illness Narrative [facility] Follow Up CHIEF [...] Chronic gastritis COPD (chronic obstructive pulmonary disease) ([facility]) COPD exacerbation ([facility]) 08/09/2023 COVID-19 05/25/2020 Esophagitis GERD (gastroesophageal reflux disease) Hypothyroidism 08/09/2023 On home oxygen therapy Prostate cancer ([facility]) 07/27/2016 Pulmonary hypertension ([facility] [facility] [place] 01/21/2017 Shortness of breath 01/21/2017 PREVIOUS ENDOSCOPY [...] mouth in the morning., Disp: , Rfl: htbnbmjvqk-qzpjezrl-ufzwqlkevo 160-9-4.8 mcg/actuation HFA aerosol inhaler, Inhale 2 [...] well-nourished. No apparent distress. present for appt. CHITIMACHA. HEAD: Normocephalic, atraumatic EYES: Pupils equal, round [...] months or sooner if needed. GILBERTO [facility] [address] [address] PH: [phone] /KAELYN Total time spent: 45 minutes Preparing to see the patient (e.g., review of tests) Obtaining and/or reviewing separately obtained history Performing a medically appropriate examination and/or evaluation Counseling and educating the patient/family/caregiver Ordering medications, tests, or procedures GILBERTO Prince 02/08/24 1225 [facility] Instructions GILBERTO Prince - 02/08/2024 9:30 AM EDT PLAN: Start one capful of MiraLax daily. Reduce sugar foods, caffeine Continue Pantoprazole 40 mg daily at least 30 minutes before breakfast. Call if no improvement. Follow up in 6 months or sooner if needed. The following attachments cannot be sent through Care Everywhere.Nonalcoholic fatty liver disease (Romanian)documented [facility] Discharge instructions Patient Education 12/30/2023 [...] treatment? Where to find more information [employer]: www.cancer.org [employer]: www.auanet.org Contact a health care [...] provider. Document Revised: 10/19/2021 Document Reviewed: 10/19/2021 [email or web address] Patient Education 2022 [employer]. Follow Up Care 11/19/2022 12:00:06 With:ALOK GARZON, Paula Isabel, URL Address: [facility] [address] [place] [address]- [phone] When: Unknown Comments:1 yr w/ PSA [facility] 12-30-2023 Note Patient Education Oncology Prostate [...] Where to find more information ? [employer]: www.cancer.org ? [employer]: www.auanet.org Contact a health care [...] of the rectum. (more content not included)... [facility] 08-01-2023 Miscellaneous Notes Pt Angie left message, returned call left message documented in this encounter [facility] 08-01-2023 Telephone encounter Note Pt Angie left message, returned call left message [facility] 11-19-2022 Hospital Discharge instructions Patient Education [...] urethra. Follow these instructions at home: Take gjth-aqw-ckcczgn and prescription medicines only as told by [...] Document Reviewed: 11/11/2021 Elsevier Patient Education 2022 [employer]. Follow Up Care 11/16/2021 14:26:07 With:ALOK GARZON, Paula Isabel, URL Address: [facility] [address] [place] [address]- When: Unknown [facility] 11-16-2021 Hospital Discharge instructions Patient Education [...] 04/25/2006 Document Revised: 01/12/2019 Document Reviewed: 03/25/2017 [employer] Patient Education 2020 [employer]. 11/16/2021 14:13:15 Benign Prostatic Hyperplasia Benign Prostatic [...] urethra. Follow these instructions at home: Take gspf-htf-eupwgbs and prescription medicines only as told by [...] 04/25/2006 Document Revised: 03/20/2019 Document Reviewed: 05/30/2017 Elsevier Patient Education 2020 [employer] Inc. Follow Up Care 11/03/2020 12:25:53 With:Paula DUNCAN MD, URL Address: [facility] [address], [place] [address]- [phone] When:Within 1 Year(s) Comments:1 year fu w PSA [facility] Evaluation + Plan note Future Appointments Appointment Date:11/19/2022 11:00:00 AM Scheduled Provider:Paula DUNCAN MD Location:[facility] Appointment Type:URO Office Visit Diagnostic Tests PendingPSA Total 11/16/21PSA Total 11/16/21 [facility] Evaluation + Plan note Future Appointments Appointment Date:11/21/2023 09:45:00 AM Scheduled Provider:Paula DUNCAN MD Location:[facility] Appointment Type:URO Office Visit Diagnostic Tests PendingPSA Total 10/08/23 [facility] Evaluation + Plan note Future Appointments Appointment Date:12/31/2024 10:45:00 AM Scheduled Provider:Paula DUNCAN MD Location:[facility] Appointment Type:URO Office Visit Diagnostic Tests PendingPSA Total 12/30/23 [facility] Evaluation note Diagnosis Fatty liver- Primary Other chronic nonalcoholic liver disease Gastroesophageal reflux disease, unspecified whether esophagitis present Chronic idiopathic constipation Unspecified constipation documented in this encounter [facility]* Diagnosis Chronic obstructive pulmonary disease, unspecified COPD type (CMS-HCC)- Primary SOB (shortness of breath) Shortness of breath Emphysema (CMS-HCC) documented in this encounter [facility]* Diagnosis Preop pulmonary/respiratory exam- Primary Pre-operative respiratory examination Chronic obstructive pulmonary disease, unspecified COPD type (CMS-HCC) Current chronic use of systemic steroids documented in this encounter [facility] Narrative No data available for this section [facility] InstructionsNot on filedocumented in this encounter [facility] filedocumented in this encounter [facility] No data available for this section [facility] Summary Purpose Family History No Family [...] section and content) DATE CREATED AUTHOR 11/02/2017 [facility] DATE CREATED AUTHOR AUTHOR'S ORGANIZ ATION 05/31/2021 [facility] DATE CREATED AUTHOR AUTHOR'S ORGANIZ ATION 04/30/2022 [facility] DATE CREATED AUTHOR AUTHOR'S ORGANIZ ATION 01/01/2024 [facility] DATE CREATED AUTHOR AUTHOR'S ORGANIZ ATION 04/25/2024 [facility] DATE CREATED AUTHOR AUTHOR'S ORGANIZ ATION 05/02/2024 [facility] Care Team (unrecognized sect ion and content) Product Test Engineer Relationship Specialty Start Date End Date Marzena Mccord APRN-CNP [address] [facility] [place] [place] [address] PCP - General Family Medicine 07/18/18 Product Test Engineer Relationship Specialty Start Date End Date Marzena Mccord APRN-CNP [address] [place] [address] PCP - General Family Medicine 08/09/23 Product Test Engineer Relationship Specialty Start Date End Date Marzena Mccord GRINDING WHEEL FACER-RENAL DIETITIAN [address] [facility] [place] [address] PCP - General Family Medicine 08/09/23 Product Test Engineer Relationship Specialty Start Date End Date Marzena Mccord APRN-CNP [address] [facility] [place] [address] PCP - General Family Medicine 08/09/23 Reason [...] BE BASED ON THE PRIMARY CLINICAL RECORDS. Relevant e-solution [facility]. provides no warranty or guarantee of the accuracy or completeness of information in this document.
== END 2024-05-30 13:46 | disposition home or self-care (01) ==
LOC: CARD 13:45
PROVIDERS: PCP Nurse Practitioner Family; Visit Provider Nurse Practitioner Family
DX: Z01.810 Encounter for preprocedural cardiovascular examination (principal); Z01.818 Encounter for other preprocedural examination; I10 Essential (primary) hypertension; E03.9 Hypothyroidism, unspecified; E78.1 Pure hyperglyceridemia; R20.2 Paresthesia of skin; J44.9 Chronic obstructive pulmonary disease, unspecified; U07.1 COVID-19; K21.9 Gastro-esophageal reflux disease without esophagitis; C61 Malignant neoplasm of prostate
CPT/HCPCS: 93306

== ENCOUNTER 2024-07-05 09:50 | Outpatient (OUT) | payer MEDICARE, SELFPAY ==
--- NOTE | 2024-07-05 10:16 | P.CN_ITS ---
Consult Note: HPI Data of Consult Patient: known to practice within the last 3 years Requesting Physician: Shannon Bradford NP Primary Care Provider: FRANKLYN MCCORD Consult Narrative Reason for consult: f/u Narrative: Dank Barahona a pleasant 83 year old male presents for evaluation and management of low back pain and numbness to bilateral legs/feet. Patient finding benefit to gabapentin 100mg BID. Prior EMG NCV confirmed mild chronic change to S1. Pain today 8/10 in low back increasing pain and weakness in bilateral legs with twisting lifting bending activity walking, improved with sleep and lying down. Patient reports pain increases to 9/10 at its worst, denies loss of bowel/bladders, denies falls. Utilizing a walker. Pending L5-S1 decompression and fusion with Dr Alba, previously we had discussed a spinal cord stim trial. cc:: CC: Shannon Bradford NP Review of Systems ROS Status of ROS 10 or more systems reviewed and unremark able except as noted in history and below Musculoskeletal Reports: back pain, extremity pain and muscle weakness Meds Home Medications and Allergies Home Medications ?Medication ?Instructions ?Recorded ?Confirmed ?Type albuterol sulfate 90 mcg/actuation 1 puff inhalation Q4H PRN 01/14/23 09/27/23 History aerosol inhaler shortness of breath or wheezing budesonide 160 mcg-glycopyr 9 2 inh inhalation BID 01/14/23 09/27/23 History mcg-formot 4.8 mcg/actuation HFA inhaler (Breztri Aerosphere) levothyroxine 50 mcg tablet 50 mcg PO DAILY 01/14/23 09/27/23 History prednisone 5 mg tablet 5 mg PO DAILY 01/14/23 09/27/23 History tamsulosin 0.4 mg capsule 0.4 mg PO BID 01/14/23 09/27/23 History vit C 250 mg-vit E 90 mg-zinc 40 1 tab PO BID 01/14/23 09/27/23 History mg-copper 1 kk-gfaokl-ebiokj capsule (PreserVision AREDS-2) gabapentin 100 mg capsule 100 mg PO DAILY #90 caps 07/11/23 09/27/23 Rx Allergies Allergy/AdvReac Type Severity Reaction Status Date / Time No Known Drug Allergies Allergy Verified 09/27/23 10:21 Exam Constitutional Documenting provider has reviewed patient's vital signs: yes Common normals: no apparent distress, oriented x3, healthy appearing, alert and well nourished General appearance: cooperative HENMT Common normals: normocephalic, hearing grossly normal bilaterally and moist oral mucous membranes Head and scalp: normocephalic Eye Common normals: PERRL Pupil: PERRL Neck & C-Spine Common normals: full ROM General: normal visual inspection Chest Common normals: inspection of chest normal Respiratory Common normals: normal respiratory effort, no retractions and no use of acces gabo muscles Effort & inspection: not able to speak in complete sentences Back & Pelvis Lumbar spine/lower back: ROM limited, pain with ROM and straight leg raise negative bilaterally Sacroiliac joints: SI joints normal Other: chronic pain following L5/S1 dermatomal pattern numbness tingling to bilateral calves and feet, severe per pt strength 4/5 in BLE Extremity Common normals: normal to inspection and full ROM Neuro Common normals: oriented x3, CN's II-XII intact bilaterally, moves all extremities, no focal motor deficits, no sensory deficits noted and deep tendon reflexes 2+ bilaterally Sensorium/orientation: alert Gait (neuro): antalgic Motor exam: strength 5/5 throughout and no movement abnormalities noted Psych Common normals: mental status grossly normal, thought process normal, cooperative, affect normal, speech normal and activity/motor behavior normal Speech: normal speech Thought process: normal thought process Results Additional Findings Additional findings: If on a controlled substance or opioids, I have checked an [place]ARRS report on this patient and there are no aberrancies noted in the prescribing history.??If on a controlled substance or opioid a drug screen was completed and reviewed within the last year, and if there has not been a drug screen completed we ordered one today to monitor higher risk, state monitored pain medication use. As part of providing excellent, safe, comprehensive care, the following was completed at our patient's visit: 1. A medication reconciliation and review to ensure accurate knowledge of current/active medications, including asking our patients to inform us about any qhzv-dyv-jsmzwgs medications or herbal remedies/nutritional supplements/alternative remedies. 2. A review to specifically ensure our patients have had annual screening for screening for depression, screening for tobacco use, and screening for unhealthy alcohol use. For concerning screenings had a discussion with the patient, provided patient education, and recommended follow-up with primary care provider when appropriate. If patient noted with a risk of falling, they received education on strength, gait, and balance training to prevent future risk of falling. Portions of this note may have been carried over from the previous visit and u pdated as appropriate. Please note this office utilizes paper charting in addition to the electronic medical record. A list of current medications, vitals, and PMH is available there as the clinical staff outside of myself do not have access to [employer] charting during the clinic day operations. As part of providing quality comprehensive care the current medications, vitals, and PMH were reviewed in the paper chart. Assessment and Plan Assessment and Plan (1) Lumbar radiculopathy: (2) Lumbar spondylosis: Plan continue care with Dr Alba, pending L5-S1 decompression/fusion continue current medications, risks vs benefits reviewed continue HEP as tolerated f/u 6 months, sooner if needed
== END 2024-07-05 09:51 | disposition home or self-care (01) ==
LOC: PM 09:51
PROVIDERS: PCP Nurse Practitioner Family; Visit Provider Nurse Practitioner
DX: M54.16 Radiculopathy, lumbar region (principal); M47.816 Spondylosis without myelopathy or radiculopathy, lumbar region
CPT/HCPCS: G0463

== ENCOUNTER 2024-07-27 11:03 | Outpatient (OUT) | payer MEDICARE, SELFPAY ==
[2024-07-27 14:08] LABS: Free T3 1.98 pg/mL (2.18-3.98)
[2024-07-27 14:09] LABS: Thyroid Stimulating Hormone 3.554 uIU/mL (0.358-3.740)
== END 2024-07-27 11:04 | disposition home or self-care (01) ==
LOC: LAB 07-30 11:03
PROVIDERS: PCP Nurse Practitioner Family; Visit Provider Nurse Practitioner Family
DX: E03.9 Hypothyroidism, unspecified (principal)
CPT/HCPCS: 84436; 84443; 84481

== ENCOUNTER 2024-07-27 12:29 | Outpatient (OUT) | payer MEDICARE, SELFPAY ==
[2024-07-27 13:27] LABS: Hematocrit 46.2 % (42.0-54.0); Hemoglobin 15.8 g/dL (14.0-18.0); Mean Corpuscular HGB Conc 34.2 g/dL (29.9-35.2); Mean Corpuscular Hemoglobin 32.5 pg (25.9-34.0); Mean Corpuscular Volume 95.1 fL (80.0-94.0); Mean Platelet Volume 9.8 fL (9.5-13.5); Platelet Count 206 10^3/uL (150-450); Red Blood Count 4.86 10^6/uL (4.70-6.10); Red Cell Distribution Width 13.4 % (11.0-15.0); White Blood Count 9.6 10^3/uL (4.0-11.0)
[2024-07-27 13:46] LABS: INR 1.11; Partial Thromboplastin Time 31.4 sec (22.3-36.2); Prothrombin Time 11.6 sec (9.0-11.6)
[2024-07-27 14:09] LABS: Alanine Aminotransferase 32 U/L (16-63); Albumin Globulin Ratio 1.2; Alkaline Phosphatase 52 U/L (46-116); Anion Gap 12.8; Aspartate Amino Transferase 21 U/L (15-37); Band Neutrophils Absolute 0.2 10^3/uL (0.0-0.3); Bilirubin Direct 0.2 mg/dL (0.0-0.2); Bilirubin Total 0.9 mg/dL (0.2-1.0); Calcium 9.1 mg/dL (8.5-10.1); Carbon Dioxide 26.6 mmol/L (21.0-32.0); Chloride 102 mmol/L (98-107); Eosinophils Absolute Manual 0.19 10^3/uL (0.00-0.70); Estimated GFR (African America >60 (>=60 mL/min/1.73m^2); Estimated GFR (Non-African Ame >60 (>=60 mL/min/1.73m^2); Globulin 3.4 g/dL; Glucose 112 mg/dL (74-106); Lymphocytes Absolute Manual 0.96 10^3/uL (1.20-3.80); Monocytes Absolute Manual 0.86 10^3/uL (0.30-0.80); Potassium 4.4 mmol/L (3.5-5.1); Segmented Neut Absolute Manual 7.39 10^3/uL (1.4-6.5); Sodium 137 mmol/L (136-145); Total Protein 7.4 g/dL (6.4-8.2)
== END 2024-07-27 12:30 | disposition home or self-care (01) ==
LOC: PST 12:29
PROVIDERS: PCP Nurse Practitioner Family; Visit Provider Orthopaedic Surgery Orthopaedic Surgery of the Spine
DX: Z01.812 Encounter for preprocedural laboratory examination (principal); M48.07 Spinal stenosis, lumbosacral region; E03.9 Hypothyroidism, unspecified
CPT/HCPCS: 80048; 80076; 84436; 84443; 84481; 85007; 85027; 85610; 85730; 86850; 86900; 86901; 87081

== ENCOUNTER 2024-08-10 11:44 | Observation (INO) | payer MEDICARE, SELFPAY ==
[2024-07-27 13:17] VITALS: BP 156/83; PULSE 80; TEMP 36.3; O2SAT 95; BMI 30.7
[2024-08-10] VITALS (173 sets, daily range): BP systolic 121–190; BP diastolic 68–104; PULSE 74–99; TEMP 36.2–36.6; O2SAT 2–99; BMI 30.3
--- NOTE | 2024-08-10 | XR_ITS ---
The [address] [address] Patient Name: MICHAEL LITTLE MRN: [id number] date: 1940 Sex: M Assigned Patient Location: [facility] Current Patient Location: [facility] Accession/Order Number: [id number] Exam Date: 08/10/2024 10:36 Report Date: 08/10/2024 10:41 At the request of: VILLA PRICE MD Procedure: XR lumbar spine 2-3V PORTABLE LUMBAR SPINE - 1view COMPARISON: 02/12/2024 and MRI 05/21/2024 CLINICAL DATA: Intraoperative localization for lumbosacral fusion A single lateral prone view of the lumbar spine was obtained in the operating room following surgery. This demonstrates new laminectomy and fusion with posterior rods and pedicle screws at the lumbosacral junction. There is continued lumbosacral spondylolisthesis of approximately 12 mm. There is disc space narrowing at that level. There is also still minimal retrolisthesis of L4 and L5. XR/XR lumbar spine 2-3V IMPRESSION: INTERVAL LUMBOSACRAL DECOMPRESSION AND FUSION Impression dictated by: Vicky Bonner M.D.08/10/2024 10:41 AM Dictation Location: [place] [address] Electronically authenticated by: [id number] Y Date: 08/10/2024 10:41
[2024-08-10] MEDS: ALBUTEROL SULFATE 2.5 MG/3 ML VIAL NEB IH (07:26)
[2024-08-10] MEDS: LACTATED RINGER'S SOLUTION 1,000 ML 50 ML IV ×2 (07:26→09:27)
[2024-08-10] MEDS: CEFAZOLIN SODIUM 2 GM/50 ML D5W PREMIX IV (07:44)
[2024-08-10] MEDS: VANCOMYCIN HCL 1,000 MG VIAL 1000 MG TOPICAL (09:50)
--- NOTE | 2024-08-10 10:17 | PM.ONB ---
Brief Operative Note Date of procedure: 08/10/24 Pre-op diagnosis general: L5-S1 spondylolisthesis with stenosis and radiculopathy Post-op diagnosis: same as pre-op Procedure: L5-S1 decompression and fusion Anesthesia: CRISTÓBAL Surgeon: Candis Portillo Purchasing Assistant: Shabbir Castelan Estimated blood loss (mL): 400 Pathology: none sent Condition: stable Disposition: PACU
[2024-08-10] MEDS: HYDROMORPHONE HCL 0.5 MG/0.5 ML SYRINGE IV ×4 (10:41→23:26)
[2024-08-10] MEDS: 0.9 % SODIUM CHLORIDE 1,000 ML 125 ML IV ×2 (11:59→20:17)
--- OUTSIDE RECORDS SUMMARY | 2024-08-10 12:03 | XMS_ITS | CCD ---
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 ([id number])[address] [place] [address] 21114 Creatinine [Mass/Vol] 1.04 mg/dL Normal 0.70-1.20 [facility] Comment on above: Result Comment: METH OD TRACEABLE TO IDMS STANDARD Performed By: #### C BUDDY WISE, 80305-2 ####[facility] ([id number])[address] [place] [address] 42748 GFR/1.73 sq M.predicted among non-blacks MDRD (S/P/Bld) [Vol rate/Area] 71 mL/min/{1.73_m2} Normal >59 [facility] Comment on above: Result Comment: Reported eGFR is based on the CKD-EPI 2020 equation that does not use a race coefficient. Performed By: #### C BUDDY WISE, 31620-2 ####[facility] ([id number])[address] [place] [address] 94149 Glucose [Mass/Vol] 144 mg/dL High 65-99 [facility] Comment on above: Performed By: #### C BUDDY WISE, 01243-9 ####[facility] ([id number])[address] [place] [address] 43385 Potassium [Moles/Vol] 4.1 mmol/L Normal 3.5-5.0 [facility] Comment on above: Performed By: #### C BUDDY WISE, ####[facility] ([id number])[address] [place] [address] 09524 Protein [Mass/Vol] 6.1 g/dL Normal 6.0-8.0 [facility] Comment on above: Performed By: #### C BUDDY WISE, ####[facility] ([id number])[address] [place] [address] 48500 Sodium [Moles/Vol] 136 mmol/L Normal 134-146 [facility] Comment on above: Performed By: #### C BCA, CMP, 78146-3 ####[facility] ([id number])[address] [place] [address] 17510 Urea nitrogen [Mass/Vol] 20 mg/dL Normal 5-27 [facility] Comment on above: Performed By: #### C BCA, CMP, 64827-6 ####[facility] ([id number])[address] [place] [address] 93776 MAGNESIUMon 08-10-2023 Magnesium [Mass/Vol] 2.1 mg/dL Normal 1.8-2.6 [facility] Comment on above: Performed By: #### C BCA, CMP, 85429-9 ####[facility] ([id number])[address] [place] [address] 42542 CBC AND AUTO DIFFon 08-09-19 24 Band form neutrophils/100 WBC (Bld) 1.0 % Normal [facility] Comment on above: Performed By: #### C BCA, CMP, 44694-1, 23105-8, 95713-2, 00432-1, 31214-2, PINR, 94761-8 #### [facility] ([id number]) [address] [place] [address] 78153 Eosinophils (Bld) [#/Vol] 0.1 10*3/uL Normal 0.0-0.4 [facility] Comment on above: Performed By: #### C BCA, CMP, 13905-2, 74650-3, 72586-4, 94026-3, 43854-6, PINR, 66044-0 #### [facility] ([id number]) [address] [place] [address] 16487 Eosinophils/100 WBC (Bld) 1.0 % Normal [facility] Comment on above: Performed By: #### C BCA, CMP, 69274-2, 52185-0, 51625-4, 25954-2, 57983-1, PINR, 67696-6 #### [facility] ([id number]) [address] [place] [address] 70004 Erythrocyte distribution width (RBC) [Ratio] 13.9 % Normal 11.5-15.0 [facility] Comment on above: Performed By: #### C BCA, CMP, 26552-7, 13434-0, 03036-2, 96454-2, 12938-4, PINR, 65549-1 #### [facility] ([id number]) [address] [place] [address] 06512 Hematocrit (Bld) [Volume fraction] 42.3 % Normal 39-49 [facility] Comment on above: Performed By: #### C BCA, CMP, 07956-2, 26237-2, 06061-7, 81353-1, 91406-1, PINR, 69556-4 #### [facility] ([id number]) [address] [place] [address] 61350 Hemoglobin (Bld) [Mass/Vol] 14.5 g/dL Normal 13.0-17.0 [facility] Comment on above: Performed By: #### C BCA, CMP, 36376-5, 11710-9, 30533-0, 82035-3, 16101-6, PINR, 14243-9 #### [facility] ([id number]) [address] [place] [address] 45609 Lymphocytes (Bld) [#/Vol] 1.2 10*3/uL Normal 1.0-3.5 [facility] Comment on above: Performed By: #### C BCA, CMP, 55225-4, 75292-8, 67240-4, 07853-3, 90577-2, PINR, 51797-5 #### [facility] ([id number]) [address] [place] [address] 15267 Lymphocytes/100 WBC (Bld) 14.0 % Normal [facility] Comment on above: Performed By: #### C BCA, CMP, 70066-3, 94247-0, 78239-5, 43651-7, 54673-7, PINR, 79332-7 #### [facility] ([id number]) [address] [place] [address] 07458 MCH (RBC) [Entitic mass] 33.2 pg Normal 27-34 [facility] Comment on above: Performed By: #### C BCA, CMP, 03338-6, 52604-8, 47559-5, 52394-0, 14082-4, PINR, 17602-8 #### [facility] ([id number]) [address] [place] [address] 61037 MCHC (RBC) [Mass/Vol] 34.3 g/dL Normal 32-36 [facility] Comment on above: Performed By: #### C BCA, CMP, 00993-6, 04798-1, 46166-1, 90283-7, 14861-1, PINR, 06908-8 #### [facility] ([id number]) [address] [place] [address] 90707 MCV (RBC) [Entitic vol] 97 fL Normal 80-100 [facility] Comment on above: Performed By: #### C BCA, CMP, 34091-4, 53957-2, 51690-3, 89757-3, 21939-6, PINR, 32522-3 #### [facility] ([id number]) [address] [place] [address] 83587 Metamyelocytes/100 WBC (Bld) 1.0 % Normal [facility] Comment on above: Performed By: #### C BCA, CMP, 20938-6, 01063-3, 29181-9, 99176-2, 24134-5, PINR, 13808-0 #### [facility] ([id number]) [address] [place] [address] Monocytes (Bld) [#/Vol] 0.8 10*3/uL Normal 0-0.9 [facility] Comment on above: Performed By: #### C BCA, CMP, 54138-4, 48722-4, 68038-6, 78922-9, 24677-3, PINR, 18343-3 #### [facility] ([id number]) [address] [place] [address] 87523 Monocytes/100 WBC (Bld) 9.0 % Normal [facility] Comment on above: Performed By: #### C BCA, CMP, 03824-9, 48531-9, 48158-1, 74663-8, 66434-3, PINR, 03505-3 #### [facility] ([id number]) [address] [place] [address] 77761 MYELOCYTE 1.0 % Normal [facility] Comment on above: Performed By: #### C BCA, CMP, 16026-1, 49049-8, 07369-6, 83929-9, 84620-8, PINR, 42235-4 #### [facility] ([id number]) [address] [place] [address] 05490 Neutrophils (Bld) [#/Vol] 6.4 10*3/uL Normal 1.5-6.6 [facility] Comment on above: Performed By: #### C BCA, CMP, 60124-3, 72890-2, 88523-3, 57575-8, 77919-4, PINR, 74117-3 #### [facility] ([id number]) [address] [place] [address] 16885 Platelet mean volume (Bld) [Entitic vol] 9.0 fL Normal 7-12 [facility] Comment on above: Performed By: #### C BCA, CMP, 87966-7, 92021-1, 59523-3, 03909-2, 88190-0, PINR, 06394-8 #### [facility] ([id number]) [address] [place] [address] 70214 Platelets (Bld) [#/Vol] 241 10*3/uL Normal 150-450 [facility] Comment on above: Performed By: #### C BCA, CMP, 71771-7, 86288-1, 84684-9, 50419-6, 37833-6, PINR, 13076-6 #### [facility] ([id number]) [address] [place] [address] 28720 RBC COUNT 4.37 X10E12/L Normal 4.10-5.70 [facility] Comment on above: Performed By: #### C BCA, CMP, 43687-8, 46523-2, 99018-8, 16320-7, 72506-2, PINR, 48930-6 #### [facility] ([id number]) [address] [place] [address] 61351 SEG NEUTROPHIL 73.0 % Normal [facility] Comment on above: Performed By: #### C BCA, CMP, 63987-9, 76352-2, 13344-8, 42776-9, 52883-3, PINR, 25144-6 #### [facility] ([id number]) [address] [place] [address] 13182 TEARDROP 1+ Abnormal NONE [facility] Comment on above: Performed By: #### C BCA, CMP, 84193-5, 62591-2, 79451-3, 55031-6, 08141-5, PINR, 03406-8 #### [facility] ([id number]) [address] [place] [address] 17289 WBC (Bld) [#/Vol] 8.8 10*3/uL Normal 4.0-11.0 [facility] Comment on above: Performed By: #### C BCA, CMP, 33710-9, 76494-3, 04277-2, 91693-5, 79119-0, PINR, 35195-6 #### [facility] ([id number]) [address] [place] [address] 01411 COMPREHENSIVE METABOLIC PANE Johnny 08-09-2023 Albumin [Mass/Vol] 4.0 g/dL Normal 3.2-5.3 [facility] Comment on above: Performed By: #### C BCA, CMP, 10086-8, 04037-7, 87101-1, 72575-8, 90591-6, PINR, 28448-5 #### [facility] ([id number]) [address] [place] [address] 75301 ALP [Catalytic activity/Vol] 37 U/L Low 39-130 [facility] Comment on above: Performed By: #### C BCA, CMP, 19566-7, 98111-2, 16745-9, 80584-3, 82041-1, PINR, 78025-0 #### [facility] ([id number]) [address] [place] [address] 44368 ALT [Catalytic activity/Vol] 27 U/L Normal 0-40 [facility] Comment on above: Performed By: #### C BCA, CMP, 46675-9, 00014-1, 18428-6, 16342-1, 39457-0, PINR, 76414-4 #### [facility] ([id number]) [address] [place] [address] 70200 Anion gap [Moles/Vol] 5 mmol/L Normal 5-15 [facility] Comment on above: Performed By: #### C BCA, CMP, 14204-3, 63304-4, 61680-9, 34573-7, 98201-6, PINR, 28439-1 #### [facility] ([id number]) [address] [place] [address] 39460 AST [Catalytic activity/Vol] 24 U/L Normal 0-41 [facility] Comment on above: Performed By: #### C BCA, CMP, 04823-4, 75989-8, 10412-7, 88074-0, 22891-6, PINR, 93182-9 #### [facility] ([id number]) [address] [place] [address] 03035 Bilirubin [Mass/Vol] 0.7 mg/dL Normal 0.3-1.2 [facility] Comment on above: Performed By: #### C BCA, CMP, 14591-0, 20668-8, 22280-9, 34903-2, 42882-4, PINR, 17734-4 #### [facility] ([id number]) [address] [place] [address] 16264 Calcium [Mass/Vol] 8.7 mg/dL Normal 8.5-10.5 [facility] Comment on above: Performed By: #### C BCA, CMP, 42525-9, 66966-6, 48700-1, 85339-3, 53565-3, PINR, 97338-0 #### [facility] ([id number]) [address] [place] [address] 08514 Chloride [Moles/Vol] 107 mmol/L Normal 98-109 [facility] Comment on above: Performed By: #### C BCA, CMP, 38760-4, 59638-1, 69285-5, 95380-6, 66968-1, PINR, 38394-3 #### [facility] ([id number]) [address] [place] [address] 13191 CO2 [Moles/Vol] 24 mmol/L Normal 22-32 [facility] Comment on above: Performed By: #### C BCA, CMP, 83128-4, 93004-4, 46639-2, 48510-5, 80838-0, PINR, 52466-7 #### [facility] ([id number]) [address] [place] [address] 31202 Creatinine [Mass/Vol] 1.00 mg/dL Normal 0.70-1.20 [facility] Comment on above: Result Comment: METH OD TRACEABLE TO IDMS STANDARD Performed By: #### C BCA, CMP, 53115-6, 73747-4, 85395-9, 53857-6, 05554-0, PINR, 15849-4 #### [facility] ([id number]) [address] [place] [address] 32214 GFR/1.73 sq M.predicted among non-blacks MDRD (S/P/Bld) [Vol rate/Area] 74 mL/min/{1.73_m2} Normal >59 [facility] Comment on above: Result Comment: Reported eGFR is based on the CKD-EPI 2020 equation that does not use a race coefficient. Performed By: #### C BCA, CMP, 13219-7, 23348-1, 15657-2, 54440-2, 83836-0, PINR, 06035-6 #### [facility] ([id number]) [address] [place] [address] 78231 Glucose [Mass/Vol] 100 mg/dL High 65-99 [facility] Comment on above: Performed By: #### C BCA, CMP, 37305-4, 34537-5, 88762-8, 97863-4, 32070-9, PINR, 07906-7 #### [facility] ([id number]) [address] [place] [address] 89689 Potassium [Moles/Vol] 3.9 mmol/L Normal 3.5-5.0 [facility] Comment on above: Performed By: #### C BCA, CMP, 73529-2, 26142-1, 25645-4, 37579-2, 09423-5, PINR, 65163-1 #### [facility] ([id number]) [address] [place] [address] Protein [Mass/Vol] 6.7 g/dL Normal 6.0-8.0 [facility] Comment on above: Performed By: #### C BCA, CMP, 40637-6, 07711-9, 09361-3, 37433-3, 52828-5, PINR, 58449-8 #### [facility] ([id number]) [address] [place] [address] 22814 Sodium [Moles/Vol] 136 mmol/L Normal 134-146 [facility] Comment on above: Performed By: #### C BCA, CMP, 55948-7, 99592-2, 79231-3, 52406-8, 12284-4, PINR, 32245-0 #### [facility] ([id number]) [address] [place] [address] 34309 Urea nitrogen [Mass/Vol] 19 mg/dL Normal 5-27 [facility] Comment on above: Performed By: #### C BCA, CMP, 35167-3, 45955-7, 58925-5, 57018-9, 83331-9, PINR, 11280-2 #### [facility] ([id number]) [address] [place] [address] [place] [address] Fibrin D-dimer DDU (PPP) [Ma ss/Vol]on 08-09-2023 D DIMER <150 Normal <255 [facility] Comment on above: Result Comment: Results <255 ng/mL DDU: The presence of a VTE can safely be excluded with a negative D-Dimer result and Wells score. A negative result doesn't exclude the possibility of DIC. The test be repeated along with other diagnostic tests if the patient's symptoms persist or worsen. [email or web address] Performed By: #### C BCA, CMP, 71486-8, 23060-9, 20150-3, 05350-0, 15306-6, PINR, 76173-4 #### [facility] ([id number]) [address] [place] [address] 03296 Lactate (P antonette) [Moles/Vol]o n 08-09-2023 LACTATE W/REFLEX 1.3 mmol/L Normal 0.4-2.0 [facility] Comment on above: Result Comment: Result did not trigger repeat Lactate, re-order if needed. Performed By: #### C BCA, CMP, 49629-3, 59764-5, 99889-9, 70235-8, 56049-8, PINR, 91662-2 #### [facility] ([id number]) [address] [place] [address] 41035 MAGNESIUMon 08-09-2023 Magnesium [Mass/Vol] 2.3 mg/dL Normal 1.8-2.6 [facility] Comment on above: Performed By: #### C BCA, CMP, 12798-4, 73737-1, 19783-1, 85065-5, 32940-3, PINR, 88068-3 #### [facility] ([id number]) [address] [place] [address] 39164 Natriuretic peptide B [Mass/ Vol]on 08-09-2023 Natriuretic peptide B (Bld) [Mass/Vol] 79 pg/mL Normal <100.0 [facility] Comment on above: Performed By: #### C BCA, CMP, 62839-7, 94173-9, 07482-5, 66995-2, 87696-4, PINR, 34276-5 #### [facility] ([id number]) [address] [place] [address] 29649 PROTIME AND INRon 08-09-2023 INR Coag (PPP) [Relative time] 1.1 {INR} Normal 0.8-1.1 [facility] Comment on above: Performed By: #### C BCA, CMP, 82542-4, 13779-5, 76568-7, 29347-9, 16609-8, PINR, 57989-9 #### [facility] ([id number]) [address] [facility], [place] [address] PT Coag (PPP) [Time] 13.0 s Normal 9.8-13.2 [facility] Comment on above: Result Comment: NEW REFERENCE RANGE Performed By: #### C BCA, CMP, 87620-8, 91078-5, 84491-8, 13877-3, 59865-9, PINR, 02369-5 #### [facility] ([id number]) [address] [facility], [place] [address] SARS/FLU A+B/RSV by NAAT/Mol ecularon 08-09-2023 SARS/FLU [...] operators who are performing tests using either [employer] or [employer] systems and is limited to laboratories that [...] specimen repeat. Fact Sheet for Healthcare Providers: https://www.[facility].gov/pr shiva/169235/download Fact Sheet for Patients: https://www.[facility].gov/pr shiva/981622/download Normal [facility] Comment on above: Performed By: #### C OVFLR ####[facility] ([id number])[address] [place] [address] 27797 TROPONIN Ion 08-09-2023 Troponin I.cardiac [Mass/Vol] ng/mL Normal 0.00-0.04 [facility] Comment on above: Performed By: #### C BCA, CMP, 37218-8, 54932-9, 19375-2, 29627-7, 17141-0, PINR, 47949-8 #### [facility] ([id number]) [address] [place] [address] 59428 XR CHEST 1 VWon 08-09-2023 XR CHEST [...] Gurdeep Strong on 08/09/2023 4:09 PM Normal [facility] aPTT Coag (PPP) [Time]on aPTT Coag (Bld) [Time] 32 s Normal 26-37 [facility] Comment on above: Result Comment: NEW REFERENCE RANGE Performed By: #### C BCA, CMP, 67526-4, 17106-8, 13689-9, 86989-1, 20784-9, PINR, 96648-9 ####[facility] ([id number])[address] [place] [address] XR CHEST 2 VWSon 08-02-2023 XR CHEST [...] Goodwin MD on 08/02/2023 4:01 PM Normal [facility] XR LSPINE MIN 4 VIEWSon 10-08 [...] ALEXEY MICHELLE Date: 2021-11-04 07:45 Normal [facility] CBC AUTO DIFFon 10-21-2021 BASO # 0.1 103/ul Normal 0.0-0.1 [facility] Comment on above: Performed By: #### C BC #### [facility] [address] [place] [address] Dr. Vannessa Quiroga Basophils/100 WBC (Bld) 1.1 % Normal 0.2-2.0 [facility] Comment on above: Performed By: #### C BC #### [facility] [address] [place] [address] [address] Vannessa Quiroga EO # 0.2 103/ul Normal 0.0-0.7 [facility] Comment on above: Performed By: #### C BC #### [facility] [address] [address] [address] Vannessa Quiroga Eosinophils/100 WBC (Bld) 3.4 % Normal 0.9-7.0 [facility] Comment on above: Performed By: #### C BC #### [facility] [address] [address] [address] Vannessa Quiroga Erythrocyte distribution width (RBC) [Ratio] 13.0 % Normal 11.0-15.0 [facility] Comment on above: Performed By: #### C BC #### [facility] [address] [place] [address] Dr. Vannessa Quiroga Hematocrit (Bld) [Volume fraction] 45.1 % Normal 42.0-54.0 [facility] Comment on above: Performed By: #### C BC #### [facility] [address] [place] [address] Dr. Vannessa Quiroga Hemoglobin (Bld) [Mass/Vol] 15.0 g/dL Normal 14.0-18.0 [facility] Comment on above: Performed By: #### C BC #### [facility] [address] [place] [address] Dr. Vannessa Quiroga IG # 0.07 10e3/ul Critically high 0.00-0.03 [facility] Comment on above: Performed By: #### C BC #### [facility] [address] [place] [address] Dr. Vannessa Quiroga IG % 1.3 % Critically high 0.0-0.5 [facility] Comment on above: Performed By: #### C BC #### [facility] [address] [place] [address] Dr. Vannessa Quiroga LYMPH # 0.9 103/ul Critically low 1.2-3.8 [facility] Comment on above: Performed By: #### C BC #### [facility] [address] [place] [address] Dr. Vannessa Quiroga Lymphocytes/100 WBC (Bld) 17.2 % Critically low 20.5-60.0 [facility] Comment on above: Performed By: #### C BC #### [facility] [address] [place] [address] Dr. Vannessa Quiroga MANUAL DIFF REQ NO Normal [facility] Comment on above: Performed By: #### C BC #### [facility] [address] [place] [address] Dr. Vannessa Quiroga MCH (RBC) [Entitic mass] 31.3 pg Normal 25.9-34.0 [facility] Comment on above: Performed By: #### C BC #### [facility] [address] [place] [address] Dr. Vannessa Quiroga MCHC (RBC) [Mass/Vol] 33.3 g/dL Normal 29.9-35.2 [facility] Comment on above: Performed By: #### C BC #### [facility] [address] [place] [address] Dr. Vannessa Quiroga MCV (RBC) [Entitic vol] 94.2 fL Critically high 80.0-94.0 [facility] Comment on above: Performed By: #### C BC #### [facility] [address] [place] [address] Dr. Vannessa Quiroga MONO # 0.6 103/ul Normal 0.3-0.8 [facility] Comment on above: Performed By: #### C BC #### [facility] [address] [place] [address] Dr. Vannessa Quiroga Monocytes/100 WBC (Bld) 11.2 % Normal 1.7-12.0 [facility] Comment on above: Performed By: #### C BC #### [facility] [address] [place] [address] Dr. Vannessa Quiroga NEUT # 3.5 103/ul Normal 1.4-6.5 [facility] Comment on above: Performed By: #### C BC #### [facility] [address] [place] [address] Dr. Vannessa Quiroga Neutrophils/100 WBC (Bld) 65.8 % Normal 43.0-75.0 [facility] Comment on above: Performed By: #### C BC #### [facility] [address] [address] [address] Vannessa Quiroga Platelet mean volume (Bld) [Entitic vol] 9.9 fL Normal 9.5-13.5 [facility] Comment on above: Performed By: #### C BC #### [facility] [address] [place] [address] Dr. Vannessa Quiroga PLT 175 103/ul Normal 150-450 [facility] Comment on above: Performed By: #### C BC #### [facility] [address] [address] [address] Vannessa Quiroga RBC 4.79 106/ul Normal 4.70-6.10 [facility] Comment on above: Performed By: #### C BC #### [facility] [address] [place] [address] Dr. Vannessa Quiroga WBC 5.4 103/ul Normal 4.0-11.0 [facility] Comment on above: Performed By: #### C BC #### [facility] [address] [place] [address] Dr. Vannessa Quiroga FREE T3on 10-21-2021 FREE T3 2.13 pg/mlL Critically low 2.18-3.98 [facility] Comment on above: Performed By: #### T SH, CMP, LIPID, FT3, T4 #### [facility] [address] [place] [address] Dr. Vannessa Quiroga GLYCOHEMOGLOBIN A1Con 2021 ADA RECOMMENDATION SEE BELOW Normal [facility] Comment on above: Result Comment: ADA RECOMMENDED LIMIT 4.0 - 6.0 ADA THERAPEUTIC TARGET < 7.0 ACTION SUGGESTED > 7.0 Performed By: #### A 1C #### [facility] [address] [place] [address] Dr. Vannessa Quiroga Glucose [Mass/Vol] 120 mg/dL Normal [facility] Comment on above: Performed By: #### A 1C #### [facility] [address] [place] [address] Dr. Vannessa Quiroga HbA1c (Bld) [Mass fraction] 5.8 % Normal 4.5-6.2 [facility] Comment on above: Performed By: #### A 1C #### [facility] [address] [address] [address] Vannessa Quiroga LIPID PROFILEon 10-21-2021 CHOL-HDL RATIO NORM SEE BELOW Normal [facility] Comment on above: Result Comment: 3.3 - 4.4 LOW RISK 4.4 - 7.1 AVERAGE RISK 7.1 - 11.0 MODERATE RISK >11.0 HIGH RISK Performed By: #### T SH, CMP, LIPID, FT3, T4 #### [facility] [address] [address] [address] Vannessa Quiroga Cholesterol [Mass/Vol] 172 mg/dL Normal <=200 [facility] Comment on above: Performed By: #### T SH, CMP, LIPID, FT3, T4 #### [facility] [address] [address] [address] Vannessa Quiroga Cholesterol in HDL [Mass/Vol] 30 mg/dL Critically low 40-60 [facility] Comment on above: Performed By: #### T SH, CMP, LIPID, FT3, T4 #### [facility] [address] [address] [address] Vannessa Quiroga Cholesterol in LDL [Mass/Vol] 102.2 mg/dL Normal [facility] Comment on above: Performed By: #### T SH, CMP, LIPID, FT3, T4 #### [facility] [address] [place] [address] Dr. Vannessa Quiroga Cholesterol.total/Ch olesterol in HDL [Mass ratio] 5.7 {ratio} Normal [facility] Comment on above: Performed By: #### T SH, CMP, LIPID, FT3, T4 #### [facility] [address] [address] [address] Vannessa Quiroga HDL NORMAL > or = 60 mg/dl - LO W CARDIOVASCULAR RISK <40 mg/dl - HIGH CARDIOVASCULAR RISK Normal [facility] Comment on above: Performed By: #### T SH, CMP, LIPID, FT3, T4 #### [facility] [address] [address] [address] Vannessa Quiroga LDL CALC NORMAL SEE BELOW Normal [facility] Comment on above: Result Comment: <100 mg/dl OPTIMAL 100 - 129 mg/dl NEAR OR ABOVE OPTIMAL 130 - 159 mg/dl BORDERLINE HIGH 160 - 189 mg/dl HIGH >190 mg/dl VERY HIGH Performed By: #### T SH, CMP, LIPID, FT3, T4 #### [facility] [address] [address] [address] Vannessa Quiroga Triglyceride [Mass/Vol] 199 mg/dL Critically high <=150 [facility] Comment on above: Performed By: #### T SH, CMP, LIPID, FT3, T4 #### [facility] [address] [address] [address] Vannessa Quiroga VLDL CALC 39.8 mg/dL Normal [facility] Comment on above: Performed By: #### T SH, CMP, LIPID, FT3, T4 #### [facility] [address] [place] [address] Dr. Vannessa Quiroga PROF 14(COMP METB)on 022 Albumin [Mass/Vol] 3.6 g/dL Normal 3.4-5.0 [facility] Comment on above: Performed By: #### T SH, CMP, LIPID, FT3, T4 #### [facility] [address] [place] [address] Dr. Vannessa Quiroga Albumin/Globulin [Mass ratio] 1.2 {ratio} Normal [facility] Comment on above: Performed By: #### T SH, CMP, LIPID, FT3, T4 #### [facility] [address] [address] [address] Vannessa Quiroga ALP [Catalytic activity/Vol] 50 U/L Normal 46-116 [facility] Comment on above: Performed By: #### T SH, CMP, LIPID, FT3, T4 #### [facility] [address] [place] [address] Dr. Vannessa Quiroga ALT [Catalytic activity/Vol] 25 U/L Normal 16-63 [facility] Comment on above: Performed By: #### T SH, CMP, LIPID, FT3, T4 #### [facility] [address] [place] [address] Dr. Vannessa Quiroga Anion gap [Moles/Vol] 13.9 mmol/L Normal [facility] Comment on above: Performed By: #### T SH, CMP, LIPID, FT3, T4 #### [facility] [address] [address] [address] Vannessa Quiroga AST [Catalytic activity/Vol] 12 U/L Critically low 15-37 [facility] Comment on above: Performed By: #### T SH, CMP, LIPID, FT3, T4 #### [facility] [address] [address] [address] Vannessa Quiroga Bilirubin [Mass/Vol] 0.5 mg/dL Normal 0.2-1.0 [facility] Comment on above: Performed By: #### T SH, CMP, LIPID, FT3, T4 #### [facility] [address] [address] [address] Vannessa Quiroga Calcium [Mass/Vol] 8.5 mg/dL Normal 8.5-10.1 [facility] Comment on above: Performed By: #### T SH, CMP, LIPID, FT3, T4 #### [facility] [address] [address] [address] Vannessa Quiroga Chloride [Moles/Vol] 107 mmol/L Normal 98-107 [facility] Comment on above: Performed By: #### T SH, CMP, LIPID, FT3, T4 #### [facility] [address] [address] [address] Vannessa Quiroga CO2 [Moles/Vol] 25.3 mmol/L Normal 21.0-32.0 [facility] Comment on above: Performed By: #### T SH, CMP, LIPID, FT3, T4 #### [facility] [address] [address] [address] Vannessa Quiroga Creatinine [Mass/Vol] 1.09 mg/dL Normal 0.70-1.30 [facility] Comment on above: Performed By: #### T SH, CMP, LIPID, FT3, T4 #### [facility] [address] [address] [address] Vannessa Quiroga EGFR-AF BRITISH >60 Normal >=60 [facility] Comment on above: Performed By: #### T SH, CMP, LIPID, FT3, T4 #### [facility] [address] [place] [address] Dr. Vannessa Quiroga EGFR-NON AF BRITISH >60 Normal >=60 [facility] Comment on above: Performed By: #### T SH, CMP, LIPID, FT3, T4 #### [facility] [address] [place] [address] Dr. Vannessa Qurioga Globulin (S) [Mass/Vol] 3.0 g/dL Normal [facility] Comment on above: Performed By: #### T SH, CMP, LIPID, FT3, T4 #### [facility] [address] [place] [address] Dr. Vannessa Quiroga Glucose [Mass/Vol] 115 mg/dL Critically high 74-106 [facility] Comment on above: Performed By: #### T SH, CMP, LIPID, FT3, T4 #### [facility] [address] [place] [address] Dr. Vannessa Quiroga Potassium [Moles/Vol] 4.2 mmol/L Normal 3.5-5.1 [facility] Comment on above: Performed By: #### T SH, CMP, LIPID, FT3, T4 #### [facility] [address] [place] [address] Dr. Vannessa Quiroga Protein [Mass/Vol] 6.6 g/dL Normal 6.4-8.2 [facility] Comment on above: Performed By: #### T SH, CMP, LIPID, FT3, T4 #### [facility] [address] [place] [address] Dr. Vannessa Quiroga Sodium [Moles/Vol] 142 mmol/L Normal 136-145 [facility] Comment on above: Performed By: #### T SH, CMP, LIPID, FT3, T4 #### [facility] [address] [place] [address] Dr. Vannessa Quiroga Urea nitrogen [Mass/Vol] 12.0 mg/dL Normal 7.0-18.0 [facility] Comment on above: Performed By: #### T SH, CMP, LIPID, FT3, T4 #### [facility]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 [facility] Start: 10-31-2023 End: 10-31-2023 ambulatory EDWIGE DELANEY [facility] Start: 10-28-2023 End: 10-28-2023 ambulatory EDWIGE DELANEY [facility] Start: 10-24-2023 End: 10-27-2023 Telephone encounter Chetna [facility] Start: 10-17-2023 End: 10-17-2023 Office outpatient visit 25 minutes Edwige Delaney MD [facility] Comment on above: Chronic respiratory failure with hypoxia ([facility]) (Primary Dx); Dyspnea, unspecified type; COPD with exacerbation ([facility]) Start: 10-17-2023 End: 10-17-2023 ambulatory EDWIGE DELANEY [facility] Start: 09-29-2023 End: 09-29-2023 ambulatory EDWIGE DELANEY [facility] Start: 09-26-2023 End: 09-26-2023 ambulatory EDWIGE DELANEY [facility] Start: 09-26-2023 End: 09-27-2023 ambulatory EDWIGE DELANEY [facility] Start: 09-05-2023 End: 09-05-2023 Office outpatient visit 15 minutes Edwige Delaney MD Work Phone: [facility] Comment on above: SOB (shortness of br eath) (Primary Dx); COPD with exacerbation (CMS-HCC) Start: 09-05-2023 End: 09-05-2023 ambulatory EDWIGE DELANEY [facility] Start: 08-26-2023 End: 09-05-2023 Telephone encounter Shanti Liu RN [facility] Start: 08-09-2023 End: 08-11-2023 Emergency department patient visit ANTHONY [facility] Start: 08-09-2023 End: 08-10-2023 ambulatory MARZENA S [facility] Start: 08-02-2023 End: 08-02-2023 ambulatory EDWIGE DELANEY [facility] Start: 08-01-2023 Telephone encounter Shanti Liu RN [facility] Start: 11-19-2022 End: 11-19-2022 Patient encounter procedure Paula DUNCAN [facility] Start: 12-31-2021 End: 01-15-2022 ambulatory MARZENA MCCORD Facility:[facility] Start: 11-16-2021 End: 11-16-2021 Patient encounter procedure Paula DUNCAN [facility] Start: 11-03-2021 End: 11-04-[address] ALEXEY MICHELLE Facility:[facility] Start: 10-21-2021 End: 10-22-[address] FERNANDO GILLESPIE Facility:[facility] Start: 10-20-2021 End: 10-21-[address] PAULA DUNCAN Facility:[facility] Start: 01-03-2017 End: 01-04-2017 Ambulatory DEFAULT PHYSICIAN Facility:[facility] Procedures Date Procedure Procedure Detail Performing Clinician Start: 09-05-2023 Follow-up visit Follow-up EDWIGE DELANEY Start: 10-20-[address] ALEXEY MICHELLE Comment on above: Performed By: #### PSAD #### [facility] [address] [place] [address] Dr. Vannessa Quiroga Start: 01-08-2020 Cystoscopy Paula DUNCAN Start: 10-14-2016 Brachytherapy Paula DUNCAN Start: 06-29-2016 Transrectal biopsy of prostate using ultrasound guidance Paula DUNCAN Colonoscopy Paula DUNCAN Cystoscopy Paula DUNCAN Esophagogastroduodenoscopy Donna DUNCAN Laser assisted in si tu keratomileusis Paula DUNCAN Repair of musculoten dinous cuff of shoulder Paula DUNCAN Repair of spleen Paula ECHEVERRIA Total orchidectomy Paula CAPONE Transrectal biopsy o f prostate using ultrasound guidance Paula DUNCAN Transurethral prostatectomy Paula DUNCAN Plan of Treatment Date Care Activity Detail Author Start: 04-30-2025 Tobacco Screening Tobacco Screening [facility] Start: 02-07-2025 Adult BMI Screening Adult BMI Screening [facility] Start: 02-07-2025 Tobacco Screening Tobacco Screening [facility] Start: 02-05-2025 Adult BMI Screening Adult BMI Screening [facility] Start: 02-05-2025 Tobacco Screening Tobacco Screening [facility] Start: 11-13-2024 Adult BMI Screening Adult BMI Screening [facility] Start: 11-13-2024 Tobacco Screening Tobacco Screening [facility] Start: 11-06-2024 Adult BMI Screening Adult BMI Screening [facility] Start: 11-06-2024 Tobacco Screening Tobacco Screening [facility] Start: 11-05-2024 End: 11-05-2024 Patient encounter procedure 11/05/2024 2:00 PM EDT Office Visit [facility] [address] [place] [address] [place] [address] [place] [address] [place] [address] [facility] Start: 10-16-2024 Adult BMI Screening Adult BMI Screening [facility] Start: 10-16-2024 Tobacco Screening Tobacco Screening [facility] Start: 09-04-2024 Adult BMI Screening Adult BMI Screening [facility] Start: 09-04-2024 Tobacco Screening Tobacco Screening [facility] Start: 08-20-2024 End: 08-20-2024 Patient encounter procedure 08/20/2024 11:45 AM EDT Office Visit [facility] [address] [place] [address] [place] [address] [place] [address] [place] [address] [facility] Start: 05-19-2024 COVID-19 Vaccine ( season) COVID-19 Vaccine ( season) [facility] Start: 04-30-2024 End: 04-30-2024 Patient encounter procedure 04/30/2024 3:00 PM EST Office Visit [facility] [address] [place] [address] [place] [address] [place] [address] [place] [address] [facility] Start: 04-18-2024 End: 04-18-2025 XR Chest PA and Lateral X-ray chest 2 views Imaging Routine Chronic obstructive pulmonary disease, unspecified COPD type (CMS-HCC) SOB (shortness of breath) Emphysema ([facility]) Expected: 04/18/2024, Expires: 04/18/2025 [facility] Work Phone: Comment on above: Expected: 04/18/2024, Expires: Start: 04-04-2024 Adult BMI Screening Adult BMI Screening [facility] Start: 04-04-2024 Tobacco Screening Tobacco Screening [facility] Start: 02-09-2024 End: 02-09-2024 Patient encounter procedure 02/09/2024 1:15 PM EDT Office Visit [facility] [address] [place] [phone] Ban Bill, RIBBON INKER-LABEL CUTTER [email or web address] [address] [address] [facility] Start: 02-08-2024 End: 02-08-2024 Patient encounter procedure 02/08/2024 9:30 AM EDT Office Visit [facility] [email or web address] [address] [address] Ban Bill, RIBB[employer] INKER-LABEL CUTTER [email or web address] [address] [address] [facility] Start: 02-06-2024 End: 02-06-2024 Patient encounter procedure 02/06/2024 9:00 AM EDT Office Visit [facility] [address] [place] [id number] [place] [address] [place] [address] [facility] Start: 01-08-2024 COVID-19 Vaccine ( season) COVID-19 Vaccine ( season) [facility] Start: 01-08-2024 COVID-19 Vaccine ( season) COVID-19 Vaccine () [facility] Start: 01-08-2024 Influenza vaccination Influenza Vaccine [facility] Start: 11-24-2023 End: 11-24-2023 Patient encounter procedure [facility] - Nuclear MedIcine Start: 11-14-2023 End: 11-14-2023 Patient encounter procedure 11/14/2023 11:15 AM EDT Office Visit [facility] [address] [place] [address] Edwige Delaney MD [address] [address] [facility] Start: 11-07-2023 End: 11-07-2023 Patient encounter procedure 11/07/2023 2:00 PM EDT Office Visit [facility] [email or web address] [address] [address] Ban Bill, [facility] [place] [address] [employer] [address] [facility] Start: 11-07-2023 End: 11-06-2024 RF Gastrointestinal tract upper Views W air contrast PO and W barium contrast PO Fluoroscopy upper GI with esophagus Imaging Routine Globus sensation Vomiting without nausea, unspecified vomiting type Expected: 11/07/2023, Expires: 11/06/2024 [facility] Work Phone: Comment on above: Expected: 11/07/2023, Expires: Start: 11-07-2023 End: 11-06-2024 XR Abdomen AP X-ray abdomen ap 1 view Imaging Routine Chronic constipation Expected: 11/07/2023, Expires: 11/06/2024 [facility] Comment on above: Expected: 11/07/2023, Expires: Start: 10-31-2023 End: 10-31-2023 Patient encounter procedure 10/31/2023 11:30 AM EDT Appointment [facility] - Pulmonary Function [address] [place] [address] [place] [address] [place] [address] [facility] - Pulmonary Function Start: 10-28-2023 End: 10-28-2023 Patient encounter procedure 10/28/2023 10:30 AM EDT Appointment [facility] - CT Imaging [address] [place] [address] [place] [address] [place] [address] [facility] - CT Imaging Start: 10-17-2023 End: 10-17-2023 Patient encounter procedure 10/17/2023 2:30 PM EDT Office Visit [facility] [address] [place] [address] [place] [address] [place] [address] [facility] Start: 10-17-2023 End: 10-16-2024 CT Chest WO contrast CT chest without contrast Imaging Routine Dyspnea, unspecified type Expected: 10/17/2023, Expires: 10/16/2024 [facility] Comment on above: Expected: 10/17/2023, Expires: Start: 09-26-2023 End: 09-26-2023 Patient encounter procedure [facility] - Ultrasound Start: 09-05-2023 End: 09-04-2024 Echo complete W/O contrast Echo complete W/O contrast Echocardiography Routine SOB (shortness of breath) Expected: 09/05/2023, Expires: 09/04/2024 [employer] Work Phone: Comment on above: Expected: 09/05/2023, Expires: Start: 09-05-2023 End: 09-04-2024 US Abdomen Ultrasound abdomen complete Imaging Routine SOB (shortness of breath) Expected: 09/05/2023, Expires: 09/04/2024 [facility] Comment on above: Expected: 09/05/2023, Expires: Start: 04-06-2023 COVID-19 Vaccine ( season) COVID-19 Vaccine () [facility] Start: 12-16-2003 Fall Risk Screening Fall Risk Screening [facility] Start: 1957 Administration of varicella zoster vaccine Zoster (Shingles) Vaccine (1 of 2) [facility] Start: 1957 DTaP,Tdap and Td Vaccines (1 - Tdap) DTaP,Tdap and Td Vaccines (1 - Tdap) [facility] Start: 1956 Adult BMI Follow Up Plan Adult BMI Follow Up Plan [facility] Start: 1950 Depression Screening Depression Screening [facility] Start: 1938 Medicare Annual Wellness Visit Medicare Annual Wellness Visit [facility] End: 11-06-2024 BARBIE Screen w/ Reflex BARBIE Screen w/ Reflex Lab Routine Hepatic steatosis 1 Occurrences starting 11/07/2023 until 11/06/2024 [facility] Comment on above: 1 Occurrences starting 11/07/2023 until 11/06/2024 End: 11-06-2024 FibroTest-ActiTest FibroTest-ActiTest Lab Routine Hepatic steatosis 1 Occurrences starting 11/07/2023 until 11/06/2024 [facility] Comment on above: 1 Occurrences starting 11/07/2023 until 11/06/2024 End: 11-06-2024 Hepatitis panel, acute Hepatitis panel, acute Lab Routine Hepatic steatosis Abnormal results of liver function studies 1 Occurrences starting 11/07/2023 until 11/06/2024 [facility] [employer] Comment on above: 1 Occurrences starting 11/07/2023 until 11/06/2024 End: 11-06-2024 Mitochondrial AB (M2) Mitochondrial AB (M2) Lab Routine Hepatic steatosis 1 Occurrences starting 11/07/2023 until 11/06/2024 [facility] Comment on above: 1 Occurrences starting 11/07/2023 until 11/06/2024 End: 10-16-2024 Pulmonary function test Complete PFT w/ BD (Spirometry (Flow Volume Loop) pre/post short acting bronchodilator w/ DLCO (diffusion study) and Lung Volume) Pulmonary function test Complete PFT w/ BD (Spirometry (Flow Volume Loop) pre/post short acting bronchodilator w/ DLCO (diffusion study) and Lung Volume) PFT Routine Chronic respiratory failure with hypoxia (CMS-HCC) 1 Occurrences starting 10/17/2023 until 10/16/2024 [employer]: Comment on above: 1 Occurrences starting 10/17/2023 until 10/16/2024 End: 11-06-2024 Smooth Muscle AB Smooth Muscle AB Lab Routine Hepatic steatosis 1 Occurrences starting 11/07/2023 until 11/06/2024 [facility] [employer] Comment on above: 1 Occurrences starting 11/07/2023 until 11/06/2024 Immunizations Immunization Date Immunization Notes Care Provider Fa cility 02-09-2023 Covid-19, Mrna, Lnp- s, Pf,priya-sucrose,30 Mcg/0.3ml Fall23 Shanti Liu RN [facility] 02-09-2023 Influenza Vaccine, Quadrivalent, Adjuvanted Shanti Liu RN [facility] 02-09-2023 RSV, bivalent, prote in subunit RSVpreF, diluent reconstituted, 0.5 mL, PF Shanti Liu RN [facility] 02-09-2023 influenza virus vacc ine, unspecified formulation Shanti Liu RN [facility] 03-01-2022 influenza, injectabl e, quadrivalent, preservative free Shanti Liu RN [facility] 03-02-2021 influenza, high dose seasonal, preservative-free Shanti Liu RN [facility] 08-25-2020 COVID-19 Vaccine, vector-nr, rS-Ad26, PF, 0.5mL Shanti Liu RN [facility] 01-30-2020 Influenza, High-dose , Quadrivalent Shanti Liu RN [facility] 01-11-2018 influenza, high dose seasonal, preservative-free Shanti Liu RN [facility] 03-16-2017 pneumococcal conjuga te vaccine, 13 valent Shanti Mehranoff RN [facility] 03-09-2017 influenza virus vacc ine, unspecified formulation Shanti Liu RN [facility] 04-08-2016 pneumococcal polysaccharide vaccine, 23 valent Shanti Panoff RN [facility] 02-07-2016 influenza, injectabl e, quadrivalent, preservative free Shanti Liu RN [facility] 01-27-2016 influenza, seasonal, injectable, preservative free Shanti Mehranoff RN [facility] 03-21-2015 pneumococcal conjuga te vaccine, 13 valent Shanti Panoff RN [facility] 02-04-2015 influenza, seasonal, injectable Shanti Alexa RN [facility] 02-19-2014 influenza, seasonal, injectable Shanti Panoff RN [facility] 03-14-2013 influenza virus vacc ine, whole virus Shanti Alexa RN [facility] 02-23-2012 influenza virus vacc ine, whole virus Shanti Mehranoff RN [facility] 02-25-2011 influenza virus vacc ine, whole virus Shanti Panoff RN [facility] 11-10-2010 pneumococcal polysaccharide vaccine, 23 valent Shanti Panoff RN [facility] Payers Date Payer Category Payer Medicare ANTHEM MEDICARE ANTHEM MEDICARE ADVANTAGE [id number] 2016-Present [phone] [address] [place] [address] [id number] 2016 Medicare HMO [employer]M MEDICARE [id number] 1959 Unknown [id number] 1938 Unknown [id number] 2.16.840.1.879366.3.579.2.59 3 1938 Unknown [id number] 2.16.840.1.599735.3.579.2.59 3 1938 Unknown [id number] 2.16.840.1.310680.3.579.2.59 3 1938 Unknown [id number] 2.16.840.1.537357.3.579.2.59 3 1938 Unknown [id number] 2.16.840.1.889333.3.579.2.72 7 1938 Unknown [id number] 2.16.840.1.474930.3.579.2.72 7 1938 Unknown [id number] 2.16.840.1.122058.3.579.2.12 86 1938 Unknown [id number] 2.16.840.1.432532.3.579.2.12 86 1938 Unknown [id number] 2.16.840.1.805945.3.579.2.12 86 1938 Unknown [id number] 2.16.840.1.842985.3.579.2.12 86 1938 Unknown [id number] 2.16.840.1.872042.3.579.2.12 86 1938 Unknown [id number] 2.16.840.1.173009.3.579.2.12 86 1938 Unknown [id number] 2.16.840.1.317772.3.579.2.12 86 1938 Unknown [id number] 2.16.840.1.661761.3.579.2.12 86 1938 Unknown [id number] 2.16.840.1.838546.3.579.2.12 86 1938 Unknown [id number] 2.16.840.1.151631.3.579.2.12 86 1938 Unknown [id number] 2.16.840.1.288331.3.579.2.12 86 1938 Unknown [id number] 2.16.840.1.759711.3.579.2.12 86 1938 Unknown [id number] 2.16.840.1.986858.3.579.2.12 86 1938 Unknown [id number] 2.16.840.1.643777.3.579.2.12 86 1938 Unknown [id number] 2.16.840.1.539736.3.579.2.12 86 1938 Unknown [id number] 2.16.840.1.193886.3.579.2.12 86 1938 Unknown [id number] 2.16.840.1.238808.3.579.2.12 86 1938 Unknown [id number] 2.16.840.1.141850.3.579.2.12 86 1938 Unknown [id number] 2.16.840.1.398418.3.579.2.12 86 1938 Unknown [id number] 2.16.840.1.492616.3.579.2.12 86 1938 Unknown [id number] 2.16.840.1.336867.3.579.2.12 86 1938 Unknown [id number] 2.16.840.1.825058.3.579.2.12 86 1938 Unknown [id number] 2.16.840.1.280766.3.579.2.12 86 1938 Unknown [id number] 2.16.840.1.096312.3.579.2.12 86 Unknown Social History Date Type Detail Facility Start: 01-08-2020 End: 03-01-2022 Tobacco smoking status Ex-smoker (finding) [facility] Start: 06-19-2020 End: 08-09-2023 Sex Assigned At Male [facility] Tobacco smoking status Never [facility] History of tobacco use Current smoker [facility] Start: 03-01-2022 Tobacco use and exposure Smokeless tobacco non-user [facility] Start: 02-08-2024 End: 04-30-2024 Alcoholic beverage intake Current non-drinker of alcohol (finding) [facility] Start: 06-19-2020 End: 04-30-2024 Alcoholic beverage intake [facility] Has the [employer], or [employer] threatened to shut off services in your home in past 12Mo No [facility] Start: 1940 Sex assigned at Male P [facility] Start: 12-12-2014 Sex Male (finding) [facility] Start: 08-09-2023 Gender identity Identifies as male gender (finding) [facility] Start: 08-09-2023 Sexual orientation Heterosexual (fin ding) [facility] Start: 1940 Sex Assigned At Not on file P [facility] Goals Date Patient Goal Desired Activity /State Personal health goal Comment on above: Formatting of this n ote might be different from the original. Evaluation of progress towards goal: home Functional Status Date Assessment Result Facility 12-30-2023 Functional Status N/A [facility] 11-19-2022 Functional Status N/A [facility] 11-16-2021 Functional Status N/A [facility] Clinical Notes 11-16-2021 to 06-08-2024 Telephone Encounter - RADHA Neumann - 06/08/2024 9:50 AM ESTTelephone Encounter - RADHA Neumann - 06/08/2024 9:50 AM Noah Delaney MD - 04/30/2024 3:00 PM ESTPatient Instructions Note Date & Type Note Facility 06-08-2024 Miscellaneous Notes Patient's /HIPAAAngie, called office requesting a refill of Prednisone 5 mg to be sent to [facility] in [place]. documented in this encounter [facility] 06-08-2024 Telephone encounter Note Patient's /HIPAAAngie, called office requesting a refill of Prednisone 5 mg to be sent to [facility] in [place]. [facility] 04-30-2024 History of Present illness Narrative Images from the original note were not included. [address] [place] [address] Patient: Dank Barahona Date of : 1940 [...] symbicort (ineffective) Triggers: Nicotine use = remote history,12-66 (1 ppd), quit 2005 Vaping / e-cigarettes [...] Continue on prednisone 5 mg 2. Possible health professional for itching 3. Intermediate risk for perioperative [...] Chronic gastritis COPD (chronic obstructive pulmonary disease) ([facility]) [place] 08/09/2023 COVID-19 05/25/2020 Esophagitis GERD (gastroesophageal reflux disease) Hypothyroidism 08/09/2023 On home oxygen therapy Prostate cancer [place] 07/27/2016 Pulmonary hypertension ([facility] 01/21/2017 Shortness of breath 01/21/2017 Past Surgical [...] drinks of alcohol documented in this encounter [facility] 04-30-2024 Instructions Edwige Delaney MD - 04/30/2024 3:00 PM EST 1. Continue on prednisone 5 mg 2. Possible health professional for itching 3. Intermediate risk for perioperative pulmonary complications, not prohibitive for surgery 4. Follow up in 6 month documented in this encounter [facility] 04-18-2024 Miscellaneous Notes Pt's doctors office LVM requesting pulmonary clearance for surgery scheduled on 05/16/2024. Please call Uma back to discuss at [phone], option 3, extension [phone]. Thank you! Spinneret Cleaner called Uma back and left voicemail requesting a return call. Uma called office back and informed her that we would call patient and try to get him in on 04/30/2024. Uma verbalized understanding and asked that we call her once he is scheduled. [employer] verbalized understanding. [employer] called patient and spoke with his /HIPAA, Angie, offered 3pm on 04/30/2024 for pulmonary clearance. Angie confirmed appointment date and time. [employer]er called Uma back and left voicemail informing her of date and time. Asked that Uma fax over the clearance request form for KW to sign off on to [phone]. Chest xray only please Order for CXR placed, health technical writer called patient and spoke to his /HIPAA, Angie, informed her that KW would like CXR completed prior to his appointment with her on 04/30/2024, Angie verbalized understanding. [facility] 04-18-2024 Telephone encounter Note Pt's doctors office LVM requesting pulmonary clearance for surgery scheduled on 05/16/2024. Please call Uma back to discuss at [phone], option 3, extension [phone]. Thank you! [facility] 04-18-2024 Telephone encounter Note [employer]er called Uma back and left voicemail requesting a return call. [facility] 04-18-2024 Telephone encounter Note Uma called office back and informed her that we would call patient and try to get him in on 04/30/2024. Uma verbalized understanding and asked that we call her once he is scheduled. [employer] verbalized understanding. [facility] 04-18-2024 Telephone encounter Note Spinne[employer] Cleaner called patient and spoke with his /HIPAA, Angie, offered 3pm on 04/30/2024 for pulmonary clearance. Angie confirmed appointment date and time. [facility] 04-18-2024 Telephone encounter Note Spinne[employer] Cleaner called Uma back and left voicemail informing her of date and time. Asked that Uma fax over the clearance request form for JOSÉ to sign off on to [phone]. [facility] 04-18-2024 Telephone encounter Note Chest xray only please [facility] 04-18-2024 Telephone encounter Note Order for CXR placed, health technical writer called patient and spoke to his /HIPAA, Angie, informed her that JOSÉ would like CXR completed prior to his appointment with her on 04/30/2024, Angie verbalized understanding. [facility] 02-08-2024 History of Present illness Narrative [facility] Follow Up CHIEF [...] Chronic gastritis COPD (chronic obstructive pulmonary disease) [place] exacerbation [place] 08/09/2023 COVID-19 05/25/2020 Esophagitis GERD (gastroesophageal reflux disease) Hypothyroidism 08/09/2023 On home oxygen therapy Prostate cancer [place] 07/27/2016 Pulmonary hypertension [place] 01/21/2017 Shortness of breath 01/21/2017 PREVIOUS ENDOSCOPY [...] mouth in the morning., Disp: , Rfl: zqvruevxhx-cssnmnqh-kluwceyicz 160-9-4.8 mcg/actuation HFA aerosol inhaler, Inhale 2 [...] well-nourished. No apparent distress. present for appt. [facility]. HEAD: Normocephalic, atraumatic EYES: Pupils equal, round [...] months or sooner if needed. GILBERTO Turcios [facility] [place] [address] PH: [phone] /KAELYN Total time spent: 45 minutes Preparing to see the patient (e.g., review of tests) Obtaining and/or reviewing separately obtained history Performing a medically appropriate examination and/or evaluation Counseling and educating the patient/family/caregiver Ordering medications, tests, or procedures GILBERTO Prince 02/08/24 1225 documented in this encounter [facility] 02-08-2024 Instructions GILBERTO Prince - 02/08/2024 9:30 AM EDT PLAN: Start one capful of MiraLax daily. Reduce sugar foods, caffeine Continue Pantoprazole 40 mg daily at least 30 minutes before breakfast. Call if no improvement. Follow up in 6 months or sooner if needed. The following attachments cannot be sent through Care Everywhere.Nonalcoholic fatty liver disease (Lithuanian)documented in this encounter [employer] 02-06-2024 History of Present illness Narrative Images from the original note were not included. [address] [place] [address] Patient: Dank Barahona Date of : 1940 Encounter Date: 02/06/2024 History of Present Illness: The patient is a 83 y.o. male, is here for follow up of dyspnea, emphysema and COPD. He is here today with his . He reports he continues to be short of breath with minimal exertion. Additionally he has started developing generalized pruritus. They are going to change his washing detergent. He has had an evaluation for an abnormal liver ultrasound which has been unremarkable thus far per his report. He continues to struggle with back pain. His has noted some change in his overall personality where he becomes more short tempered. [] Cough [] Dry [] Productive [] Wheeze [x] Shortness of breath [] Chest pain [] Lower limb swelling Supplemental oxygen = 6 minute walk completed 11/30/2023 did not show any evidence of hypoxemia on exertion. Pulmonary regimen: Current = Breztri 2 puffs BID Albuterol HFA as needed, rare use Albuterol nebulizer 3-4x a day Prednisone 5 mg daily Nasal saline Past = Trelegy (ineffective), symbicort (ineffective) Triggers: Nicotine use = remote history, (1 ppd), quit 2005 Vaping / e-cigarettes = none Second hand smoke = none currently Exacerbation history = Last hospitalization = August 2023 (dyspnea) Last ER / urgent care visit August 2023 Respiratory need for antibiotics steroids August 2023, prednisone July 2023 (doxy / pred burst) Physical Exam: BP 145/69 Pulse 70 Ht 165.1 cm (5' 5 ) Wt 78.6 kg (173 lb 4.8 oz) SpO2 95% BMI 28.84 kg/m General Appearance - Awake, alert, oriented, in no acute distress Neck - Supple, trachea midline Lungs - Clear Cardiovascular - Heart sounds are normal. Regular rate and rhythm. Skin - no bruising or bleeding Extremities - no cyanosis, clubbing or edema October 2023 Assessment: 1. 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 Severe emphysematous lung disease 3. GERD 4. Generalized pruritus 5. History of prostate cancer 6. COVID infection May 2020 7. Chronic back pain 8. Extensive nicotine use history, 50 pyh, quit 2005 Plan: 1. Focus on purse lip breathing (on exertion). Discussed extensively the technique in the importance of this with his breathing. 2. Reviewed CT, discussed emphysema 3. Continue on current regimen. Prednisone may contribute to his mood change. Could consider decreasing total steroid dose over time. 4. Follow up in 6 months Edwige Delaney MD Pulmonary and Sleep Medicine [...] Chronic gastritis COPD (chronic obstructive pulmonary disease) [place] COPD exacerbation [place] 08/09/2023 COVID-19 05/25/2020 Esophagitis GERD (gastroesophageal reflux disease) Hypothyroidism 08/09/2023 On home oxygen therapy Prostate cancer [place] 07/27/2016 Pulmonary hypertension ([facility] 01/21/2017 Shortness of breath 01/21/2017 Past Surgical [...] as needed for wheezing. 75 mL 1 ANTIOX #8/OM3/DHA/EPA/LUT/ZEAX (PRESERVISION AREDS 2, OMEGA-3, ORAL) Take 2 capsules by mouth in the morning. pxoqzgoswe-zryjozeb-jmmcwtfkhq 160-9-4.8 mcg/actuation HFA aerosol inhaler Inhale 2 puffs in the morning and 2 puffs before bedtime. 10.7 g 11 CEPHalexin (KEFLEX) 500 mg capsule Take 1 capsule (500 mg total) by mouth in the morning and 1 capsule (500 mg total) before bedtime. gabapentin (NEURONTIN) 100 mg capsule Take 1 capsule (100 mg total) by mouth 3 (three) times a day. hydrOXYzine (ATARAX) 25 mg tablet Take 1 tablet (25 mg total) by mouth. levothyroxine (SYNTHROID, LEVOTHROID) 50 MCG tablet Take 1 tablet (50 mcg total) by mouth in the morning. predniSONE (DELTASONE) 5 mg tablet Take 1 [...] drinks of alcohol [facility] 02-06-2024 Instructions Edwige Delaney MD - 02/06/2024 9:00 AM EDT 1. Focus on purse lip breathing (on exertion) 2. Reviewed CT, discussed emphysema 3. Follow up in 6 months documented in this encounter [facility] 01-02-2024 Miscellaneous Notes Patient needs new prescription for Breztri, prescription needs printed and signed and then sent to [facility]. documented in this encounter [facility] 01-02-2024 Telephone encounter Note Patient needs new prescription for Breztri, prescription needs printed and signed and then sent to [facility]. [facility] 12-30-2023 Hospital Discharge instructions Patient Education [...] treatment? Where to find more information [employer]: www.cancer.org [employer]: www.auanet.org Contact a health care [...] provider. Document Revised: 10/19/2021 Document Reviewed: 10/19/2021 [employer] Patient Education 2022 [employer]. Follow Up Care 11/19/2022 12:00:06 With:ALOK GARZON, Paula Isabel, URL Address: [facility] [address] , [place] [address]- [phone] When: Unknown Comments:1 yr w/ PSA [facility] 12-30-2023 Note Patient Education Oncology Prostate Cancer [...] Where to find more information ? The [employer]: www.cancer.org ? [employer]: www.auanet.org Contact a health care [...] of the rectum. (more content not included)... [facility] 12-09-2023 History of Present illness Narrative Received fax from [facility] requesting update six minute test results. Routed message to KW and MP to review patient's six minute walk test results and advise if oxygen is needed. documented in this encounter [facility] 11-21-2023 Miscellaneous Notes Received fax from [facility] requesting an updated order and updated office note, re-faxed updated oxygen order, office note, and 6MWT to [facility]. documented in this encounter [facility] 11-21-2023 Telephone encounter Note Received fax from [facility] requesting an updated order and updated office note, re-faxed updated oxygen order, office note, and 6MWT to [facility]. [facility] 11-14-2023 History of Present illness Narrative Images from the original note were not included. [address] [place] [address] Patient: Dank Barahona Date of : 1940 Encounter Date: 11/14/2023 History of Present Illness: The patient is a 82 y.o. male, is here for follow up of dyspnea. 6MW at [facility] faxed to [facility] on 11/08. Has repeated PFTs and is here for follow up. He feels his shortness of breath is about the same. It varies from day-to-day. He does note that when he is more bloated he is significantly more short of breath. He is having episodes of regurgitation every night after dinnertime. [] Cough [] Dry [] Productive [] Wheeze [x] Shortness of breath - stable [] Chest pain [] Lower limb swelling Supplemental oxygen = 2L continuously Pulmonary regimen: Current = Breztri 2 puffs BID (no missed doses) Albuterol HFA as needed, rare use Albuterol nebulizer 3-4x a day Prednisone 5 mg daily Nasal saline Past = Trelegy (ineffective), symbicort (ineffective) Breo (ineffective) Triggers: Nicotine use = 12-66 (1 ppd), quit 2005 Second hand smoke = none Exacerbation history = Last hospitalization = August 2023 (dyspnea) Last ER / urgent care visit August 2023 Respiratory need for antibiotics steroids August 2023, prednisone July 2023 (doxy / pred burst) Physical Exam: BP 127/69 (BP Site: Right Arm, BP Postition: Sitting) Pulse 80 Ht 165.1 cm (5' 5 ) Wt 80.7 kg (178 lb) SpO2 100% Comment: 2L BMI 29.62 kg/m General Appearance - Awake, alert, oriented, in no acute distress Neck - Supple, trachea midline Lungs - Clear Cardiovascular - Heart sounds are normal. Regular rate and rhythm. Skin - no bruising or bleeding Extremities - no cyanosis, clubbing or edema PFTS FVC FEV1 DLCO 2015 3.88 (116) 1.78 (75) 2016 (-BD) 5.36 (163) 2.25 (96) 2019 (-BD) 4.17 (123) 1.94 (90) 10 (60) 2020 3.84 (115) 2.09 (98) 8.7 (54) 2023 (-BD) 4.33 (132) 2.07 (102) 7.7 (48) September 2023: Assessment: 1. 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 Severe emphysematous lung disease 3. Delayed gastric emptying 4. Generalized pruritus 5. History of prostate cancer 6. COVID infection May 2020 7. Frequent GERD / waterbrash / vomiting 8. Extensive nicotine use history, 50 pyh, quit 2005 Plan: 1. Discussed prednisone and GERD 2. Biotine mouth wash (prior to bed time), if no improvement, consider xylomelts (over the counter) 3. Discussed possible referral to Dr. Keller for valve therapy for empyhsema 4. Follow up in 3 months Edwige Delaney MD Pulmonary and Sleep Medicine [...] Chronic gastritis COPD (chronic obstructive pulmonary disease) [place] 08/09/2023 COVID-19 05/25/2020 Esophagitis GERD (gastroesophageal reflux disease) Hypothyroidism 08/09/2023 On home oxygen therapy Prostate cancer [place] 07/27/2016 Pulmonary hypertension [place] 01/21/2017 Shortness of breath 01/21/2017 Past Surgical [...] as needed for wheezing. 75 mL 1 ANTIOX #8/OM3/DHA/EPA/LUT/ZEAX (PRESERVISION AREDS 2, OMEGA-3, ORAL) Take 2 capsules by mouth in the morning. gnozdyrknd-wlyamnqo-qcjsjbhapc 160-9-4.8 mcg/actuation HFA aerosol inhaler Inhale. gabapentin (NEURONTIN) 100 mg capsule Take 1 capsule (100 mg total) by mouth 3 (three) times a day. levothyroxine (SYNTHROID, LEVOTHROID) 50 MCG tablet Take 1 tablet (50 mcg total) by mouth in the morning. predniSONE (DELTASONE) 5 mg tablet Take 1 [...] drinks of alcohol documented in this encounter [facility] 11-14-2023 Instructions Edwige Delaney MD - 11/14/2023 11:15 AM EDT 1. Discussed prednisone and GERD 2. Biotine mouth wash (prior to bed time), if no improvement, consider xylomelts (over the counter) 3. Discussed possible referral to Dr. Keller for valve therapy for empyhsema 4. Follow up in 3 months documented in this encounter [facility] 11-07-2023 History of Present illness Narrative [facility] New Patient Visit - History & Physical CHIEF COMPLAINT: Chief Complaint Patient presents with GI Problem Difficulty Swallowing Vomiting New patient here for fatty liver, also states he has some difficulty swallowing, food gets stuck and he coughs and vomits. He complains of itching from head to toe. HISTORY OF PRESENT ILLNESS: Dank Barahona is a 82 y.o. male who has a past medical history of BPH, gastritis, COPD, COVID-19, GERD, hypothyroidism, prostate CA s/p radiation seeds, and pulmonary HTN who presents today for evaluation of fatty liver. He recently had abdominal ultrasound 09/2023 that revealed increased hepatic echotexture suggestive of diffuse hepatocellular disease, most commonly diffuse hepatic steatosis. He has normal platelets. Liver enzymes showed AST and ALT normal. ALP 34. He has no family history of liver disease. He denies any alcohol consumption. No illicit drug use. He has no jaundice or dark colored urine. Today he has several GI complaints. He has intermittent postprandial vomiting. No specific trigger foods. He is unsure if he has dysphagia. He has no odynophagia. He notes a globus sensation that resolves with vomiting. No heartburn. He has early satiety. No nausea or abdominal pain. He does have complaints of abdominal bloating. He has been struggling with constipation. He is moving his bowels roughly every other day but passing a small amount of hard stools. No hematochezia or melena. He will take MOM prn with relief. He has been losing weight. Appetite is decreased. He has complaints of generalized pruritus. He reportedly had a prior EGD many years ago with possible ulcer. Past Medical History: Diagnosis Date Abnormal EKG 01/21/2017 Benign prostatic hyperplasia with urinary obstruction 08/09/2023 Chronic gastritis COPD (chronic obstructive pulmonary disease) [place] exacerbation [place] 08/09/2023 COVID-19 05/25/2020 Esophagitis GERD (gastroesophageal reflux disease) Hypothyroidism 08/09/2023 On home oxygen therapy Prostate cancer [place] 07/27/2016 Pulmonary hypertension [place] 01/21/2017 Shortness of breath 01/21/2017 PREVIOUS ENDOSCOPY [...] mouth in the morning., Disp: , Rfl: nanthgwzkg-qblmdfmm-trcxuuhvfg 160-9-4.8 mcg/actuation HFA aerosol inhaler, Inhale., Disp: , Rfl: gabapentin (NEURONTIN) 100 mg capsule, Take 1 capsule (100 mg total) by mouth 3 (three) times a day., Disp: , Rfl: levothyroxine (SYNTHROID, LEVOTHROID) 50 MCG tablet, Take 1 tablet (50 mcg total) by mouth in the morning., Disp: , Rfl: predniSONE (DELTASONE) 5 mg tablet, Take 1 tablet (5 mg total) by mouth in the morning., Disp: 90 tablet, Rfl: 0 tamsulosin (FLOMAX) 0.4 mg capsule,extended release 24hr, Take 1 capsule (0.4 mg total) by mouth in the morning and 1 capsule (0.4 mg total) before bedtime., Disp: , Rfl: I reviewed and reconciled [...] No chest pain, palpitations or edema GASTROINTESTINAL: Vomiting and constipation; No abdominal pain, nausea or blood in stools GENITOURINARY: No dysuria or hematuria INTEGUMENT/BREAST: No skin rashes or skin lesions HEMATOLOGIC/LYMPHATIC: No anemia or easy bruising ALLERGIC/IMMUNOLOGIC: No seasonal allergies, itching, or hay fever ENDOCRINE: No heat/cold intolerance, no diabetes MUSCULOSKELETAL: No joint/muscle pain or arthritis NEUROLOGICAL: No headache or seizures BEHAVIOR/PSYCH: No anxiety or depression PHYSICAL EXAM: Vitals: 11/07/23 1351 BP: 151/81 Weight: 80.9 kg (178 lb 6.4 oz) Height: 165.1 cm (5' 5 ) Body mass index is 29.69 kg/m . CONSTITUTIONAL: Alert, well developed and well-nourished. No apparent distress. present for appt. [facility]. HEAD: Normocephalic, atraumatic EYES: Pupils equal, round and reactive to light; conjunctiva pink; no scleral icterus. ENT: Oral pharynx with moist mucus membranes. LUNGS: increased work of breathing; on 2L per [place] CARDIOVASCULAR: no edema ABDOMEN: Soft, distended and [...] 27 Alkaline phosphatase 37 (L) 34 (L) IMAGING: Abdominal ultrasound 09/2023: Findings: Real-time sonographic evaluation [...] ASSESSMENT AND PLAN: Dank Barahona is a 82 y.o. male with a past medical history of BPH, gastritis, COPD, COVID-19, GERD, hypothyroidism, prostate CA s/p radiation seeds, and pulmonary HTN who presents today for evaluation of fatty liver. He recently had abdominal ultrasound 09/2023 that revealed increased hepatic echotexture suggestive of diffuse hepatocellular disease, most commonly diffuse hepatic steatosis. His main GI complaints today include intermittent postprandial vomiting, ? Dysphagia, bloating, and constipation. He has no blood in the stool. He has early satiety. Prior EGD many years ago reportedly with an ulcer. Will check viral hepatitis and autoimmune liver disease as well as Fibrotest to evaluate fibrosis. I will plan UGI and KUB to assess stool burden. Would consider SPGES and possible EGD pending results. Diagnoses and all orders for this visit: Chronic constipation - X-ray abdomen ap 1 view; Future Hepatic steatosis - Hepatitis panel, acute; Future - Mitochondrial AB (M2); Future - Smooth Muscle AB; Future - BARBIE Screen w/ Reflex; Future - FibroTest-ActiTest; Future Globus sensation - Fluoroscopy upper GI with esophagus; Future Vomiting without nausea, unspecified vomiting type - Fluoroscopy upper GI with esophagus; Future Follow up in 3 months or sooner if [place] [address] PH: [phone] SR/MB Total time spent: 45 minutes Preparing to see the patient (e.g., review of tests) Obtaining and/or reviewing separately obtained history Performing a medically appropriate examination and/or evaluation Counseling and educating the patient/family/caregiver Ordering medications, tests, or procedures GILBERTO Prince 11/07/23 1545 documented in this encounter [facility] 10-24-2023 Miscellaneous Notes Images from the original note were not included. [facility] sent out office a fax requesting that patient has updated oxygen testing. Please review and advise. It was just done at [facility] [employer]er called and left voicemail for [facility] Records requesting that they fax any recent oxygen testing that the patient had completed with them recently. Images from the original note were not included. Received 6MWT from [facility], health technical writer faxed 6MWT with oxygen order to [facility]. documented in this encounter [facility] 10-24-2023 Telephone encounter Note Images from the original note were not included. [facility] sent out office a fax requesting that patient has updated oxygen testing. Please review and advise. [facility] 10-24-2023 Telephone encounter Note It was just done at [facility] 10-24-2023 Telephone encounter Note [employer]er called and left voicemail for [facility] Records requesting that they fax any recent oxygen testing that the patient had completed with them recently. [facility] 10-24-2023 Telephone encounter Note Images from the original note were not included. Received 6MWT from [facility], health technical writer faxed 6MWT with oxygen order to [facility]. [facility] 10-17-2023 History of Present illness Narrative Images from the original note were not included. [address] [place] [id number] Patient: Dank Barahona Date of : 1940 Encounter Date: 10/17/2023 History of Present Illness: The patient is a 82 y.o. male, is here for follow up of dyspnea on exertion. He is here today with his . Since our last visit he has continued to be persistently short of breath with minimal exertion. Often he will be on his supplemental oxygen and his saturations are in the mid 90s but his heart rate are in the 110s. He feels short of breath with minimal exertion. His abdomen continues to get bigger, he feels very bloated and feels as though this is increasing with time. [] Cough [] Dry [] Productive [] Wheeze [x] Shortness of breath - mMRC 4 [] Chest pain [] Lower limb swelling Supplemental oxygen = 2L continously Pulmonary regimen: Current = Breztri 2 puffs BID Albuterol HFA as needed, rare use Albuterol nebulizer 3-4x a day Prednisone 5 mg daily Nasal saline Past = Trelegy (ineffective), symbicort (ineffective) Triggers: Nicotine use = none Second hand smoke = none Exacerbation history = Last hospitalization = August 2023 (dyspnea) Last ER / urgent care visit August 2023 Respiratory need for antibiotics steroids August 2023, prednisone July 2023 (doxy / pred burst) Physical Exam: Ht 165.1 cm (5' 5 ) Wt 83 kg (182 lb 14.4 oz) SpO2 95% Comment: Arrived on 2Lnc of O2 BMI 30.44 kg/m General Appearance - Awake, alert, oriented, in no acute distress Neck - Supple, trachea midline Lungs - Clear Cardiovascular - Heart sounds are normal. Regular rate and rhythm. Skin - no bruising or bleeding Extremities - no cyanosis, clubbing or edema Assessment: 1. COPD (FEV1 98%, reduced ratio, 2020) chronic bronchitis phenotype with preserved pulmonary function, currently poorly controlled 2. Bilateral lower lobe interstitial change, unknown subtype 3. Chronic hypoxic respiratory failure 4. GERD 5. Prostate cancer 6. COVID 27 May 2020 7. Chronic steroid use (prednisone 5 mg daily) 8. History of nicotine use, 2005 Plan: 1. Normal d-dimer, CT chest 2. Repeat PFTs 3. Prescription for oxygen concentrator 4. Continue on Breztri 5. Follow up after testing by phone call. Edwige Delaney MD Pulmonary and Sleep Medicine [facility] Past Medical, Family, and Social History Update: The following portions of the patient's history were reviewed and updated as appropriate: allergies, current medications, past family history, past medical history, past social history, past surgical history and problem list. Past Medical History: Diagnosis Date Chronic gastritis COPD (chronic obstructive pulmonary disease) ([facility]) COVID-19 05/25/2020 Esophagitis GERD (gastroesophageal reflux disease) Hypothyroidism 08/09/2023 Past Surgical History: Procedure Laterality Date COLONOSCOPY [...] as needed for wheezing. 75 mL 1 ANTIOX #8/OM3/DHA/EPA/LUT/ZEAX (PRESERVISION AREDS 2, OMEGA-3, ORAL) Take 2 capsules by mouth in the morning. anxbprtsaz-ejuwdmal-jbmrmwphsh 160-9-4.8 mcg/actuation HFA aerosol inhaler Inhale. gabapentin (NEURONTIN) 100 mg capsule Take 1 capsule (100 mg total) by mouth 3 (three) times a day. levothyroxine (SYNTHROID, LEVOTHROID) 50 MCG tablet Take 1 tablet (50 mcg total) by mouth in the morning. tamsulosin (FLOMAX) 0.4 mg capsule,extended release 24hr [...] drinks of alcohol [facility] Instructions Edwige Delaney MD - 10/17/2023 2:30 PM EDT 1. Normal d-dimer, CT chest 2. Repeat PFTs 3. Prescription for oxygen concentrator 4. Continue on Breztri 5. Follow up after testing by phone call. [facility] History of Present illness Narrative Images from the original note were not included. [address] [place] [address] Patient: Dank Barahona Date of : 1940 Encounter Date: 09/05/2023 History of Present Illness: The patient is a 82 y.o. male, is here for follow up of COPD. [x] Cough [x] Dry - started July 2023 [] Productive [] Wheeze [x] Shortness of breath - with minimal exertion, talking [] Chest pain [x] Lower limb swelling / abdominal swelling Supplemental oxygen = 2L with sleep Pulmonary regimen: Current = Breztri 2 puffs BID Albuterol HFA as needed, rare use Albuterol nebulizer 3-4x a day Prednisone 5 mg daily Nasal saline Past = Trelegy (ineffective), symbicort (ineffective) Triggers: Nicotine use = none Second hand smoke = none Exacerbation history = Last hospitalization = August 2023 (dyspnea) Last ER / urgent care visit August 2023 Respiratory need for antibiotics steroids July 2023 (doxy / pred burst) Physical Exam: BP 145/65 Pulse 80 Ht 165.1 cm (5' 5 ) Wt 84.9 kg (187 lb 1.6 oz) SpO2 97% Comment: arrived on 2Lnc of O2 BMI 31.14 kg/m General Appearance - Awake, alert, oriented, in no acute distress Neck - Supple, trachea midline Lungs - diminished Cardiovascular - Heart sounds are normal. Regular rate and rhythm. Skin - no bruising or bleeding Extremities - no cyanosis, clubbing or edema Assessment: 1. COPD (FEV1 98%, reduced ratio, 2020) chronic bronchitis phenotype with preserved pulmonary function, currently poorly controlled 2. Possible pulmonary hypertension (RVSP 36 mmHg, improved from 2017) 3. Bilateral lower lobe interstitial change, unknown subtype 4. GERD 5. Prostate cancer 6. COVID 27 May 2020 7. Chronic steroid use (prednisone 5 mg daily) 8. History of nicotine use, 2005 Plan: 1. 6 minute walk from [place] last week 2. Use oxygen when exerting 3. Discuss issues with swallowing with PCP 4. Start antihistamine (Claritin) 5. Continue Breztri 6. ECHO and ultrasound of abdomen. Jitendra has a very distended abdomen and I do wonder if this is contributing to his significant dyspnea 7. Follow up in October 2023 Edwige Delaney MD Pulmonary and Sleep Medicine [facility] Past Medical, Family, and Social History Update: The following portions of the patient's history were reviewed and updated as appropriate: allergies, current medications, past family history, past medical history, past social history, past surgical history and problem list. Past Medical History: Diagnosis Date Chronic gastritis COPD (chronic obstructive pulmonary disease) ([facility]) COVID-19 05/25/2020 Esophagitis GERD (gastroesophageal reflux disease) Hypothyroidism 08/09/2023 Past Surgical History: Procedure Laterality Date COLONOSCOPY HERNIA REPAIR SHOULDER SURGERY Family History Problem Relation Age of Onset Glaucoma Mother Cancer Mother Diabetes Father Heart disease Father Current Outpatient Medications Medication Sig Dispense Refill albuterol (PROVENTIL HFA;VENTOLIN HFA) 90 mcg/actuation inhaler Inhale 2 puffs every 6 (six) hours as needed for wheezing. albuterol (PROVENTIL,VENTOLIN) 2.5 mg /3 mL (0.083 %) nebulizer solution Inhale 3 mL (2.5 mg total) by nebulization every 4 (four) hours as needed for wheezing. 75 mL 1 ANTIOX #8/OM3/DHA/EPA/LUT/ZEAX (PRESERVISION AREDS 2, OMEGA-3, ORAL) Take 2 capsules by mouth in the morning. belajfxtnh-goareuwv-cygnzfmuew 160-9-4.8 mcg/actuation HFA aerosol inhaler Inhale. gabapentin (NEURONTIN) 100 mg capsule Take 1 capsule (100 mg total) by mouth 3 (three) times a day. levothyroxine (SYNTHROID, LEVOTHROID) 50 MCG tablet Take 1 tablet (50 mcg total) by mouth in the morning. tamsulosin (FLOMAX) 0.4 mg capsule,extended release 24hr Take 1 capsule (0.4 mg total) by mouth in the morning and 1 capsule (0.4 mg total) before bedtime. budesonide-formoteroL (SYMBICORT) 160-4.5 mcg/actuation inhaler Inhale 2 puffs in the morning and 2 puffs before bedtime. (Patient not taking: Reported on 09/05/2023) 10.2 g 12 No current facility-administered medications for this visit. [...] drinks of alcohol [facility] Instructions Edwige Delaney MD - 09/05/2023 11:15 AM EDT 1. 6 minute walk from [place] last week 2. Use oxygen when exerting 3. Discuss issues with swallowing with PCP 4. Start antihistamine (Claritin) 5. Continue Breztri 6. ECHO and ultrasound of abdomen 7. Follow up in October 2023 documented in this encounter [employer] [facility] 08-26-2023 Miscellaneous Notes Received call from pt PCP asking to move appt up. Per PCP pt has been experiencing increase in SOB. Call pt, spoke with pt . Pt has increase in SOB on exertion. Denies cough, wheeze or fever. Pt is using albuterol nebulizer BID is some relief, Breztri and rescue inhaler daily. O2 levels have been >90%. Most recent CXR done 08/09/23 while in ED. Ok to add on. Please have him increase his albuterol to every 4 hours. Pt agreeable to increase albuterol q4h. Chetna can you reach out to schedule? Lives in [place]. Spinneret Cleaner called patient and spoke with patient's /HIPAA, Angie, offered for patient to follow up in [facility] due to no sooner appointments in [place], Angie stated she would prefer [place] as they are unsure where the [facility] is and they are not comfortable traveling that far. Please advise as KW has no sooner appointments in [place] and has patient's already scheduled over her lunch. Can we keep an eye out for a cancellation with KW? Patient was seen in office on 09/05/2023 with JOSÉ. documented in this encounter [facility] 08-26-2023 Telephone encounter Note Received call from pt PCP asking to move appt up. Per PCP pt has been experiencing increase in SOB. Call pt, spoke with pt . Pt has increase in SOB on exertion. Denies cough, wheeze or fever. Pt is using albuterol nebulizer BID is some relief, Breztri and rescue inhaler daily. O2 levels have been >90%. Most recent CXR done 08/09/23 while in ED. [facility] 08-26-2023 Telephone encounter Note Ok to add on. Please have him increase his albuterol to every 4 hours. [facility] 08-26-2023 Telephone encounter Note Pt agreeable to increase albuterol q4h. Chetna can you reach out to schedule? Lives in [place]. [facility] 08-26-2023 Telephone encounter Note [employer] Cleaner called patient and spoke with patient's /HIPAA, Angie, offered for patient to follow up in [facility] due to no sooner appointments in [place], Angie stated she would prefer [place] as they are unsure where the [facility] is and they are not comfortable traveling that far. Please advise as KW has no sooner appointments in [place] and has patient's already scheduled over her lunch. [facility] 08-26-2023 Telephone encounter Note Can we keep an eye out for a cancellation with KW? [facility] 08-26-2023 Telephone encounter Note Patient was seen in office on 09/05/2023 with KW. [facility] 08-01-2023 Miscellaneous Notes Pt Angie left message, returned call left message documented in this encounter [facility] 08-01-2023 Telephone encounter Note Pt Angie left message, returned call left message [facility] 11-19-2022 Hospital Discharge instructions Patient Education [...] urethra. Follow these instructions at home: Take rqxn-sns-txtlymv and prescription medicines only as told by [...] provider. Document Revised: 11/11/2021 Document Reviewed: 11/11/2021 [employer] Patient Education 2022 [employer]. Follow Up Care 11/16/2021 14:26:07 With:ALOK GARZON, Paula Isabel, URL Address: [facility] [address] [place] [address]- When: Unknown [facility] 11-16-2021 Hospital Discharge instructions Patient Education [...] 04/25/2006 Document Revised: 01/12/2019 Document Reviewed: 03/25/2017 [employer] Patient Education 2020 [employer] 11/16/2021 14:13:15 Benign Prostatic Hyperplasia Benign Prostatic [...] urethra. Follow these instructions at home: Take cqlm-gfv-bcaqlbt and prescription medicines only as told by [...] 04/25/2006 Document Revised: 03/20/2019 Document Reviewed: 05/30/2017 [employer] Patient Education 2020 [employer]. Follow Up Care 11/03/2020 12:25:53 With:Paula DUNCAN MD, URL Address: [facility] [address] , [place] [address]- [phone] When:Within 1 Year(s) Comments:1 year fu w PSA [facility] Evaluation + Plan note Future Appointments Appointment Date:11/19/2022 11:00:00 AM Scheduled Provider:Paula DUNCAN MD Location:[facility] Appointment Type:URO Office Visit Diagnostic Tests PendingPSA Total 11/16/21PSA Total 11/16/21 [facility] Evaluation + Plan note Future Appointments Appointment Date:11/21/2023 09:45:00 AM Scheduled Provider:Paula DUNCAN MD Location:[facility] Appointment Type:URO Office Visit Diagnostic Tests PendingPSA Total 10/08/23 [facility] Evaluation + Plan note Future Appointments Appointment Date:12/31/2024 10:45:00 AM Scheduled Provider:Paula DUNCAN MD Location:[facility] Appointment Type:URO Office Visit Diagnostic Tests PendingPSA Total 12/30/23 [facility] Evaluation note Diagnosis Preop pulmonary/respiratory exam- Primary Pre-operative respiratory examination Chronic obstructive pulmonary disease, unspecified COPD type (CMS-HCC) Current chronic use of systemic steroids [facility] Diagnosis SOB (shortness of breath)- Primary Shortness of breath COPD with exacerbation (CMS-HCC) documented in this encounter [facility]* Diagnosis Chronic respiratory failure with hypoxia (CMS-HCC)- Primary Dyspnea, unspecified type COPD with exacerbation (CMS-HCC) documented in this encounter [facility]* Diagnosis Chronic constipation- Primary Unspecified constipation Hepatic steatosis Other chronic nonalcoholic liver disease Globus sensation Gastrointestinal malfunction arising from mental factors Vomiting without nausea, unspecified vomiting type Abnormal results of liver function studies Nonspecific abnormal results of liver function study documented in this encounter [facility]* Diagnosis Dyspnea, unspecified type Hepatic steatosis Other chronic nonalcoholic liver disease Chronic respiratory failure with hypoxia (CMS-HCC) Chronic obstructive pulmonary disease, unspecified COPD type (CMS-HCC) documented in this encounter [facility]* Diagnosis Chronic respiratory failure with hypoxia (CMS-HCC)- Primary SOB (shortness of breath) Shortness of breath Chronic obstructive pulmonary disease, unspecified COPD type (CMS-HCC) documented in this encounter [facility]* Diagnosis Chronic obstructive pulmonary disease, unspecified COPD type (CMS-HCC)- Primary documented in this encounter [facility] SystemEvaluation [facility]* Diagnosis Chronic obstructive pulmonary disease, unspecified COPD type (CMS-HCC)- Primary SOB (shortness of breath) Shortness of breath Pulmonary emphysema, unspecified emphysema type (CMS-HCC) Generalized pruritus Unspecified pruritic disorder documented in this encounter [facility] Diagnosis Fatty liver- Primary Other chronic nonalcoholic liver disease Gastroesophageal reflux disease, unspecified whether esophagitis present Chronic idiopathic constipation Unspecified constipation documented in this encounter [facility]* Diagnosis Chronic obstructive pulmonary disease, unspecified COPD type ([facility])- Primary SOB (shortness of breath) Shortness of breath Emphysema ([facility]) documented in this encounter [facility] SystemHospital course Narrative No data available for this section [facility] InstructionsNot on filedocumented in this encounter [facility] filedocumented in this encounter [facility]ructionsNot on filedocumented in this encounter [facility]* Attachments The following attachments cannot be sent through Care Everywhere. * Nonalcoholic fatty liver disease (Lithuanian) [facility]ructionsNot on file documented in [facility] System[facility]ructionsNot on file [facility] No data available for this section [facility] Summary Purpose Family History No Family History Records FoundNo Family History Records FoundNo Family History Records Found No data available for this section No Family History Records FoundNo Family History Records FoundNo Family History Records Found Advance Directives Date Activated Date Inactivated Comments 08/09/2023 5:48 PM 08/10/2023 2:14 PM Date Activated Date Inactivated Comments 08/09/2023 5:48 PM 08/10/2023 2:14 PM Reason for Referral Specialty Diagnoses / Procedures Referred By Raphael teixeira Referred To Contact Diagnoses Globus sensation Vomiting without nausea, unspecified vomiting type Procedures Fluoroscopy upper GI with esophagus Ban Bill, [employer] [address] [id number] Referral ID Status Reason Start Date Expiration Date V isits Requested Visits Authorized [id number] Pending Review 11/07/2023 11/06/2024 1 1 Specialty Diagnoses / Procedures Referred By Contac t Referred To Contact Radiology Diagnoses Dyspnea, unspecified type Procedures [place] [address] [place] [id number] Referral ID Status Reason Start Date Expiration Date V isits Requested Visits Authorized [id number] Pending Review 10/17/2023 10/16/2024 1 1 Specialty Diagnoses / Procedures Referred By Contac t Referred To Contact Diagnoses Chronic respiratory failure with hypoxia ([facility]) Procedures [place] [address] [place] [id number] Referral ID Status Reason Start Date Expiration Date V isits Requested Visits Authorized [id number] Pending Review 10/17/2023 10/16/2024 1 1 Specialty Diagnoses / Procedures Referred By Contac t Referred To Contact Diagnoses SOB (shortness of breath) Procedures Echo complete W/O contrast Edwige Delaney MD [address] [place] [id number] [facility] [address] [place] [address] Phone: [phone] Referral ID Status Reason Start Date Expiration Date V isits Requested Visits Authorized [id number] Authorized 09/06/2023 12/04/2023 1 1 Additional Source Comments (unrecognized sect ion and content) No Status Records FoundNo Status Records FoundNo Status Records FoundNo Status Records FoundNo Status Records FoundNo Status Records Found INFORMATION SOURCE (unrecogn ized section and content) DATE CREATED AUTHOR 11/02/2017 [facility] DATE CREATED AUTHOR AUTHOR'S ORGANIZ ATION 05/31/2021 [facility] DATE CREATED AUTHOR AUTHOR'S ORGANIZ ATION 04/30/2022 [facility] DATE CREATED AUTHOR AUTHOR'S ORGANIZ ATION 01/01/2024 [facility] DATE CREATED AUTHOR AUTHOR'S ORGANIZ ATION 04/25/2024 [facility] DATE CREATED AUTHOR AUTHOR'S ORGANIZ ATION 05/02/2024 [facility] Team (unrecognized sect ion and content) Porter Marina Relationship Specialty Start Date End Date Marzena Mccord APRN-CNP [address], [place] [address] PCP - General Family Medicine 08/09/23 Porter Marina Relationship Specialty Start Date End Date Marzena Mccord APRN-CNP [address], [place] [address] PCP - General Family Medicine 08/09/23 Porter Marina Relationship Specialty Start Date End Date Marzena Mccord APRN-LABEL CUTTER [address], [place] [address] PCP - General Family Medicine 08/09/23 Porter Marina Relationship Specialty Start Date End Date Marzena Mccord APRN-LABEL CUTTER [address], [place] [address] PCP - General Family Medicine 08/09/23 Porter Marina Relationship Specialty Start Date End Date Marzena Mccord APRN-LABEL CUTTER [address], [place] [address] PCP - General Family Medicine 08/09/23 Porter Marina Relationship Specialty Start Date End Date Marzena Mccord APRN-LABEL CUTTER [address], [place] [address] PCP - General Family Medicine 08/09/23 Porter Marina Relationship Specialty Start Date End Date Marzena Mccord APRN-LABEL CUTTER [address], [place] [address] PCP - General Family Medicine 08/09/23 Porter Marina Relationship Specialty Start Date End Date Marzena Mccord APRN-CNP [address], [place] [address] PCP - General Family Medicine 08/09/23 Porter Marina Relationship Specialty Start Date End Date Marzena Mccord APRN-CNP [address], [place] [address] PCP - General Family Medicine 07/18/18 Porter Marina Relationship Specialty Start Date End Date Marzena Mccord APRN-CNP [address] [place] [address] PCP - General Family Medicine 08/09/23 Porter Marina Relationship Specialty Start Date End Date Marzena Mccord APRN-CNP [address] , [place] [address] PCP - General Family Medicine 08/09/23 Porter Marina Relationship Specialty Start Date End Date Marzena Mccord APRN-CNP [address] , [place] [address] PCP - General Family Medicine 08/09/23 Porter Marina Relationship Specialty Start Date End Date Marzena Mccord APRN-CNP [address] , [place] [address] PCP - General Family Medicine 08/09/23 Reason for Visit (unrecogniz ed section and content) Reason Comments Follow-up Needs clearance for surgeryCXR: 04/13/24CT w/o contrast: 10/28/23PFT: 11/30/23 Reason Onset Date Comments Med Refill 06/08/2024 Reason Comments Follow-up CXR: 08/02/2023 & 4Arrived on 2Lnc of O2On 2Lnc of O2 at home on exertion COPD Shortness of Breath Reason Comments COPD Echo: 4Arri carmine on 2Lnc of O2On 2Lnc of O2 with ambulation and at nightUS: 09/29/2023 Reason Comments GI Problem Difficulty Swallowing Vomiting New patient here for fatty liver, also states he has some difficulty swallowing, food gets stuck and he coughs and vomits. He complains of itching from head to toe. Specialty Diagnoses / Procedures Referred By Raphael teixeira Referred To Contact Gastroenterology Diagnoses [place] [address] [place] [address] [address] [place] [address] [place] [address] [place] [address], [address] [place] [address] Referral ID Status Reason Start Date Expiration Date Visits Requested Visits Authorized [id number] Pending Review Specialty Services Required 10/10/2023 10/09/2024 1 1 Reason Comments Follow-up Shortness of Breath Still the same as fa r as sob goes -2L Cough Occasionally Wheezing Denies Reason Onset Date Comments Med Refill 01/02/2024 Reason Comments Follow-up Chronic respiratory failure with hypoxiaCT: 4PFT: MWT: 11/30/2023 Shortness of Breath Reason Comments Difficulty Swallowing Follow-up hepatic steatosis [...] BE BASED ON THE PRIMARY CLINICAL RECORDS. [facility] provides no warranty or guarantee of the accuracy or completeness of information in this document.
--- NOTE | 2024-08-10 12:05 | P.PN_ITS ---
Progress Note: Subjective Subjective Interval history: Patient known to me from the office, sees my nurse practitioner, had discussion with anesthesia right after surgery and difficulty maintaining oxygenation, patient has been slowly improving since that time, still requiring 3 L of supplemental extremity first got to the ICU, now down to 2 L, patient denies shortness of breath or chest pain, only concern is his back pain Exam Constitutional Vital Signs, click to edit/add: Last Vital Signs Temp 97.8 F 08/10/24 10:21 Pulse 87 08/10/24 11:35 Resp 27 H 08/10/24 10:46 BP 163/80 H 08/10/24 11:30 Pulse Ox 98 08/10/24 11:35 O2 Del Method Nasal Cannula 08/10/24 11:31 O2 Flow Rate 4 08/10/24 11:31 Documenting provider has reviewed patient's vital signs: yes Common normals: no apparent distress Chest Common normals: inspection of chest normal Respiratory Common normals: normal respiratory effort, no retractions and clear to auscultation bilaterally Cardio Common normals: regular rate, regular rhythm and no murmurs GI Common normals: Normal to inspection, nondistended, normoactive bowel sounds present, soft to palpation and non-tender Extremity Common normals: normal to inspection and no clubbing, cyanosis or edema Progress Note: A&P Assessment and Plan (1) Lumbar stenosis with neurogenic claudication: (2) Hypothyroidism: (3) Pulmonary hypertension: (4) Hypothyroidism (acquired): (5) GERD (gastroesophageal reflux disease): (6) COPD (chronic obstructive pulmonary disease): Plan Admission findings: Patient with acute hypoxia mild respiratory distress postoperatively with uncontrolled hypertension, slowly improving since admission to the ICU Lumbar radiculopathy-plan per surgery Acute hypoxia on top of chronic hypoxic respiratory failure secondary to COPD- complicated by surgery, so far improving and is down to 2 L, respiratory distress also significantly improved Uncontrolled hypertension postop-improving Hypothyroidism-continue with home medications BPH-continue with home medications Admission status: Patient placed in observation status postoperatively, discharge disposition per orthopedic surgery assuming his respiratory status continues to improve, if unable to discharge safely tomorrow, medically necessary treatment would then span 2 midnights, patient to be changed to inpatient status
--- NOTE | 2024-08-10 12:31 | PC.NURSE ---
neurovascular assessment completed. levon post tib and dorsalis pedis pulses palpable,strong. pt denies n/t to levon le, feels this nurse touching feet. wiggles toes without difficulty. levon feet warm, pink
[2024-08-10] MEDS: OXYCODONE HCL 5 MG TABLET PO ×2 (13:19→20:40)
[2024-08-10] MEDS: POLYETHYLENE GLYCOL 3350 17 GM POWDER PACKET PO (15:12)
[2024-08-10] MEDS: BISACODYL 5 MG TABLET PO (15:12)
[2024-08-10] MEDS: CYCLOBENZAPRINE HCL 10 MG TABLET PO (15:14)
--- NOTE | 2024-08-10 15:31 | SWNOTE1 ---
ILIANA consulted for home health. SW stopped in and spoke with pt, pt's , and pt's son in room. SW did explain that there is a chance pt will return home with the hemovac drain. Pt's son then stated it was removed, SW asked nurse, and it was still there. ILIANA explained that we can set up nurse to asssist and monitor hemovac drain. Pt and family in agreement. They do not have a preference on company. ILIANA to send to [facility] as they have a quick response time. Referral sent to [facility]. Referral included face sheet, pre-admission H&P, and operative note.
[2024-08-10] MEDS: CEFAZOLIN SODIUM/DEXTROSE,ISO 2 GM/50 ML PIGGYBACK IV (16:01)
--- NOTE | 2024-08-10 16:08 | SWNOTE1 ---
ILIANA received a call and [facility] is able to accept. ILIANA let nurse and family know. ILIANA left CRF and list of information that will need sent to [facility] at discharge on pt's chart.
[2024-08-10] MEDS: ONDANSETRON PF 4 MG/2 ML VIAL IV (16:24)
[2024-08-10] MEDS: 0.9 % SODIUM CHLORIDE 10 ML SYRINGE - SALINE FLUSH IV (20:17)
[2024-08-10] MEDS: TAMSULOSIN HCL 0.4 MG CAPSULE PO (20:18)
[2024-08-10] MEDS: [UNRECOGNIZED DRUG - REMARK] 1 EACH IH (22:32)
[2024-08-11] VITALS (21 sets, daily range): BP systolic 116–159; BP diastolic 2–77; PULSE 72–113; TEMP 36.3–36.7; O2SAT 88–97
[2024-08-11] MEDS: CEFAZOLIN SODIUM/DEXTROSE,ISO 2 GM/50 ML PIGGYBACK IV (00:14)
[2024-08-11] MEDS: HYDROMORPHONE HCL 0.5 MG/0.5 ML SYRINGE IV ×3 (01:56→05:53)
[2024-08-11] MEDS: 0.9 % SODIUM CHLORIDE 1,000 ML 125 ML IV (03:47)
[2024-08-11] MEDS: ACETAMINOPHEN 500 MG TABLET 1000 MG PO ×3 (03:57→22:56)
[2024-08-11] MEDS: CYCLOBENZAPRINE HCL 10 MG TABLET PO ×2 (04:00→14:42)
[2024-08-11] MEDS: PANTOPRAZOLE SODIUM 40 MG TABLET.DR PO (05:53)
[2024-08-11] MEDS: LEVOTHYROXINE SODIUM 25 MCG TABLET 50 MCG PO (05:53)
[2024-08-11 06:25] LABS: Basophils Percent Auto 0.1 % (0.2-2.0); Hematocrit 37.2 % (42.0-54.0); Hemoglobin 12.4 g/dL (14.0-18.0); Immature Granulocytes Abs Auto 0.15 10^3/uL (0.00-0.03); Immature Granulocytes Pct Auto 0.9 % (0.0-0.5); Lymphocytes Absolute Auto 0.8 10^3/uL (1.2-3.8); Lymphocytes Percent Auto 4.4 % (20.5-60.0); Mean Corpuscular HGB Conc 33.3 g/dL (29.9-35.2); Mean Corpuscular Hemoglobin 32.5 pg (25.9-34.0); Mean Corpuscular Volume 97.4 fL (80.0-94.0); Mean Platelet Volume 10.1 fL (9.5-13.5); Monocytes Absolute Auto 1.3 10^3/uL (0.3-0.8); Monocytes Percent Auto 7.6 % (1.7-12.0); Neutrophils Absolute Auto 14.7 10^3/uL (1.4-6.5); Platelet Count 271 10^3/uL (150-450); Red Blood Count 3.82 10^6/uL (4.70-6.10); Red Cell Distribution Width 13.2 % (11.0-15.0); White Blood Count 16.9 10^3/uL (4.0-11.0)
[2024-08-11 06:46] LABS: Anion Gap 16.3; BUN Creatinine Ratio 11.6; Calcium 8.5 mg/dL (8.5-10.1); Chloride 105 mmol/L (98-107); Estimated GFR (African America >60 (>=60 mL/min/1.73m^2); Estimated GFR (Non-African Ame 57 (>=60 mL/min/1.73m^2); Glucose 111 mg/dL (74-106); Potassium 4.3 mmol/L (3.5-5.1); Sodium 142 mmol/L (136-145)
--- NOTE | 2024-08-11 07:47 | P.PN_ITS ---
Progress Note: Subjective Subjective Interval history: Patient is 83 y.o with known COPD requiring 2L of as needed oxygen at home, CHF, pulmonary hypertension. He is POD #1 s/p L5/S1 decompression and fusion by Dr. Hart. Patient was having some issues maintaining oxygen saturations post op as to be expected with known COPD, age, surgical risks. He was in the ICU yesterday and with administration of IV pain medications had respiratory decompensation. He has been doing well on 3L and 2L of Nasal [place] oxygen overnight. Saturations have been in the 90's. Patient was transferred to Med surg. Overall his pain is controlled with oral medications. He has no complaints this morning. Exam Narrative Exam Narrative: General: Patient is alert, and oriented to person, place and time with normal affect, proper hygiene Skin: no visible rashes, or ulcers Head: atraumatic, acephalic Eyes: PERRLA, no nystagmus present, conjunctiva clear, no scleral icterus Ears: normal gross auditory acuity Heart: Normal rate and rhythm, no murmurs/rubs/gallops Lungs: no audible wheezes, crackles and normal breath sounds all lung mayers Abdomen: Normal audible bowel sounds, no distension, No palpable masses, no organomegaly, no rebound/guarding/ or rigidity Musculoskeletal: no swelling bilateral lower extremities, back brace in place Neuro: CN II-X grossly intact Constitutional Vital Signs, click to edit/add: Last Vital Signs Temp 97.4 F L 08/11/24 05:00 Pulse 72 08/11/24 06:00 Resp 16 08/11/24 05:00 BP 150/76 H 08/11/24 05:00 Pulse Ox 97 08/11/24 05:00 O2 Del Method Nasal Cannula 08/11/24 05:00 O2 Flow Rate 2 08/11/24 05:00 Progress Note: Objective Labs Labs: Short CBC 08/11/24 Range/Units 05:35 WBC 16.9 H (4.0-11.0) 10^3/uL Hgb 12.4 L (14.0-18.0) g/dL Hct 37.2 L (42.0-54.0) % Plt Count 271 (150-450) 10^3/uL BMP 08/11/24 05:35 Sodium 142 Potassium 4.3 Chloride 105 Carbon Dioxide 25.0 BUN 14.0 Creatinine 1.21 Glucose 111 H Calcium 8.5 Progress Note: A&P Assessment and Plan (1) Lumbar stenosis with neurogenic claudication: Assessment and Plan: POD #1, pain control per primary surgical team along with restrictions, and discharge planning. Try to avoid IV sedative pain medications. continue gabapentin and oxycodone (2) Hypothyroidism: Assessment and Plan: resume levothyroxine Qualifiers: Hypothyroidism type: acquired Qualified Code(s): E03.9 - Hypothyroi dism, unspecified (3) Pulmonary hypertension: Assessment and Plan: monitor respiratory status, inhalers as needed. (4) GERD (gastroesophageal reflux disease): Assessment and Plan: continue protonix Qualifiers: Esophagitis presence: without esophagitis Qualified Code(s): K21.9 - Gastro-esophageal reflux disease without esophagitis (5) COPD (chronic obstructive pulmonary disease): Assessment and Plan: continue nebs, add OPEP and pulmicort. Check Chest X-ray today. Qualifiers: COPD type: emphysema Emphysema type: panlobular Qualified Code(s): J43.1 - Panlobular emphysema (6) On home oxygen therapy: Assessment and Plan: due to #5 (7) BPH with obstruction/lower urinary tract symptoms: Assessment and Plan: continue flomax Plan Patient is a full code Patient is in surgical observation
--- NOTE | 2024-08-11 09:21 | P.ORPN_ITS ---
Progress Note: A&P Assessment and Plan (1) Lumbar stenosis with neurogenic claudication: Assessment and Plan: POD #1 L5-S1 decompression/fusion - Neurovascularly intact bilateral lower extremities - PT evaluation?ambulation as tolerated by pain - LSO brace when out of bed - Hemovac output 100 mL in 6 hours, last recorded, maintain for today - Bowel regimen - Hopeful for discharge tomorrow if medically stable Plan discussed with my Supervising Physician, Dr Portillo. (2) Hypothyroidism: Qualifiers: Hypothyroidism type: acquired Qualified Code(s): E03.9 - Hypoth yroidism, unspecified (3) Pulmonary hypertension: (4) GERD (gastroesophageal reflux disease): Qualifiers: Esophagitis presence: without esophagitis Qualified Code(s): K21.9 - Gastro-esophageal reflux disease without esophagitis (5) COPD (chronic obstructive pulmonary disease): Qualifiers: COPD type: emphysema Emphysema type: panlobular Qualified Code(s): J43.1 - Panlobular emphysema (6) On home oxygen therapy: (7) BPH with obstruction/lower urinary tract symptoms: Subjective Subjective Principal diagnosis: Post Operative Care after L5-S1 decompression with Fusion Interval history: Patient is POD #1 status post L5-S1 decompression/fusion. Patient sitting in the chair this morning, working with physical therapy. He was in the ICU postoperatively yesterday for some increased oxygen demand in the setting of his COPD. His baseline is 2L. He is now a MedSurg floor and O2 saturations are fine on 2 L. He did desat briefly when moving to the chair from the bed this morning into the 80s but recovered quickly and was asymptomatic. Patient reports that he is having flatus, but denies bowel movement yet. He is having some tingling to his toes bilaterally. Exam Narrative Exam Narrative: On exam patient is in no distress, sitting in the chair, age-appropriate, alert and oriented x 3. LSO brace and Hemovac in place. There is 5/5 strength to the right lower extremity, 4+/5 strength to the left lower extremity in flexion/extension, flexion/extension, otherwise 5/5. 2+ DP pulses palpated. Sensation is intact light touch to bilateral lower extremities. Constitutional Vital Signs, click to edit/add: Last Vital Signs Temp 97.7 F 08/11/24 07:51 Pulse 82 04/05/25 08:00 Resp 18 08/11/24 07:51 BP 148/77 H 08/11/24 07:51 Pulse Ox 90 L 08/11/24 08:00 O2 Del Method Nasal Cannula 08/11/24 07:51 O2 Flow Rate 2 08/11/24 07:51
[2024-08-11] MEDS: HYDROXYZINE HCL 25 MG TABLET PO (09:42)
[2024-08-11] MEDS: GABAPENTIN 100 MG CAPSULE PO ×2 (09:42→22:56)
[2024-08-11] MEDS: PREDNISONE 5 MG TABLET PO (09:42)
[2024-08-11] MEDS: TAMSULOSIN HCL 0.4 MG CAPSULE PO ×2 (09:42→22:55)
[2024-08-11] MEDS: BISACODYL 5 MG TABLET PO (09:43)
[2024-08-11] MEDS: SENNOSIDES/DOCUSATE SODIUM 1 TAB TABLET PO ×2 (09:43→22:55)
[2024-08-11] MEDS: POLYETHYLENE GLYCOL 3350 17 GM POWDER PACKET PO (09:43)
--- NOTE | 2024-08-11 10:32 | PT.DAILY ---
Physical Therapy Daily Note PT Daily Note/Assess Start: 08/11/24 10:21 Freq: Status: Active Protocol: Document 08/11/24 10:21 [id number] (Rec: 08/11/24 10:31 [id number]) Physical Therapy Daily Note/Assessment Time In/Time Out Time In 08:49 Time Out 09:09 Pain In Pain Level 5 Pain Out Pain Level 3 Subjective Subjective Patient received supine in bed. Patient agreeable to participate with PT and requests to use urinal. Therapeutic Activity Time Therapeutic Activity 20 Minutes (minutes) Therapeutic Activity 1 Units Therapeutic Activity Treatment Bed Mobility Ability Minimum Assist,Moderate Assist,1 Person Assist Chair Transfer Contact Guard Assist Ability Therapeutic Activity O2 level 94% prior to functional mobility. Bed Comments mobility: supine to R log rolling with use of R hand rail is MIN to MOD A +1, MOD A for transfer from R side lying to sitting. MAX A +1 to henri lumbar brace. Sit to stand to 2WW is MIN A +1. Patient stood at 2WW ~3 minutes with 1 UE on 2WW while urinating. Patient ambulated ~15 feet with 2WW with CGA +1. Patient seated in chair at bedside, O2 level 84%. Verbal cues for breathing, level returned to 94% ~30 seconds. Sit to stand to 2WW with CGA +1 and ambulated 5 ft FWD & retro with return to chair. O2 level @ 84% and recovers in ~30 seconds to 94%. Patient performed second time with O2 level @ 84% with exertion and returns to 94% ~30 seconds. Patient experienced one episode of L knee buckling, able to self correct without assistance. Patient JP elevated, CBWR and post treatment needs met. Total Physical Therapy Time Total Therapy 20 Minutes Total Physical 1 Therapy Units Summary Daily Note Summary Patient demonstrates increased walking distance. O2 levels drop to 84% with exertion and recover in ~30 seconds. Patient report pain level at 3/10 after walking. Patient would benefit from PT to address L LE weakness for return to PLOF.
[2024-08-11] MEDS: [UNRECOGNIZED DRUG - REMARK] 1 EACH IH ×2 (11:15→22:56)
--- NOTE | 2024-08-11 11:17 | RESP.RT ---
titrated down to 1 LPM
[2024-08-11] MEDS: OXYCODONE HCL 5 MG TABLET PO ×2 (11:28→17:43)
[2024-08-11] MEDS: MAGNESIUM SULFATE IN WATER 2 GM/50 ML PREMIX IV (17:44)
[2024-08-11] MEDS: TIZANIDINE HCL 4 MG TABLET PO (22:55)
[2024-08-12] VITALS (9 sets, daily range): BP systolic 118; BP diastolic 64–72; PULSE 73–98; TEMP 36.6; O2SAT 86–98
[2024-08-12] MEDS: OXYCODONE HCL 5 MG TABLET PO ×2 (00:07→08:19)
[2024-08-12] MEDS: TIZANIDINE HCL 4 MG TABLET PO (05:45)
[2024-08-12] MEDS: PANTOPRAZOLE SODIUM 40 MG TABLET.DR PO (05:46)
[2024-08-12] MEDS: LEVOTHYROXINE SODIUM 25 MCG TABLET 50 MCG PO (05:46)
[2024-08-12 06:08] LABS: Basophils Percent Auto 0.3 % (0.2-2.0); Eosinophils Absolute Auto 0.1 10^3/uL (0.0-0.7); Eosinophils Percent Auto 0.9 % (0.9-7.0); Hemoglobin 10.3 g/dL (14.0-18.0); Immature Granulocytes Abs Auto 0.06 10^3/uL (0.00-0.03); Immature Granulocytes Pct Auto 0.7 % (0.0-0.5); Lymphocytes Absolute Auto 0.8 10^3/uL (1.2-3.8); Lymphocytes Percent Auto 8.5 % (20.5-60.0); Mean Corpuscular HGB Conc 33.2 g/dL (29.9-35.2); Mean Corpuscular Hemoglobin 32.4 pg (25.9-34.0); Mean Corpuscular Volume 97.5 fL (80.0-94.0); Monocytes Absolute Auto 1.2 10^3/uL (0.3-0.8); Neutrophils Absolute Auto 6.8 10^3/uL (1.4-6.5); Neutrophils Percent Auto 76.6 % (43.0-75.0); Platelet Count 192 10^3/uL (150-450); Red Blood Count 3.18 10^6/uL (4.70-6.10); Red Cell Distribution Width 13.5 % (11.0-15.0); White Blood Count 8.9 10^3/uL (4.0-11.0)
[2024-08-12 06:20] LABS: Anion Gap 12.5; BUN Creatinine Ratio 16.8; Calcium 8.2 mg/dL (8.5-10.1); Carbon Dioxide 27.4 mmol/L (21.0-32.0); Chloride 105 mmol/L (98-107); Estimated GFR (African America >60 (>=60 mL/min/1.73m^2); Estimated GFR (Non-African Ame >60 (>=60 mL/min/1.73m^2); Glucose 116 mg/dL (74-106); Potassium 3.9 mmol/L (3.5-5.1); Sodium 141 mmol/L (136-145)
--- NOTE | 2024-08-12 07:15 | PM.PN ---
Progress Note: Subjective Subjective Interval history: Patient is POD #2 s/p L5/S1 decompression and fusion by Dr. Hart. Overall his pain is controlled with oral medications. Patient did complain of some bilateral lower ext muscle cramps yesterday evening. I increased Gabapentin to 100mg BID, stopped Flexeril and added Zanaflex to see if this would improve symptoms and gave him 2 grams of IV magnesium. He has been walking with brace. He is still requiring 2-3 L of NC oxygen but has this at home. Chest X-ray on 08/11/24 showed no acute changes, no effusions. Labs are stable. Hb 10.3. Patient wishes to go home today and from hospitalist stand point he is able. He will need to be cleared by primary ortho team today for final discharge planning. He has home health set up to call/start tomorrow. Oxygen walk test 86% on room air saturation, and recovered on 2L via NC to >90%. Patient uses [employer] in [place] for oxygen. He has portable oxygen at home. He will remain on 2L via NC continuous until evaluated by PCP. Exam Narrative Exam Narrative: General: Patient is alert, and oriented to person, place and time with normal affect, proper hygiene Skin: no visible rashes, or ulcers Head: atraumatic, acephalic Eyes: PERRLA, no nystagmus present, conjunctiva clear, no scleral icterus Ears: normal gross auditory acuity Heart: Normal rate and rhythm, no murmurs/rubs/gallops Lungs: no audible wheezes, crackles and normal breath sounds all lung mayers Abdomen: Normal audible bowel sounds, no distension, No palpable masses, no organomegaly, no rebound/guarding/ or rigidity Musculoskeletal: no swelling bilateral lower extremities, back brace in place, KEVIN drain visible Neuro: CN II-X grossly intact Constitutional Vital Signs, click to edit/add: Last Vital Signs Temp 97.8 F 08/12/24 03:00 Pulse 93 H 08/12/24 06:00 Resp 18 08/12/24 03:00 BP 118/72 08/12/24 03:00 Pulse Ox 95 08/12/24 06:00 O2 Del Method Nasal Cannula 08/12/24 03:00 O2 Flow Rate 3 08/12/24 03:00 Progress Note: Objective Labs Labs: Short CBC 08/12/24 Range/Units 05:39 WBC 8.9 (4.0-11.0) 10^3/uL Hgb 10.3 L (14.0-18.0) g/dL Hct 31.0 L (42.0-54.0) % Plt Count 192 (150-450) 10^3/uL BMP 08/12/24 05:39 Sodium 141 Potassium 3.9 Chloride 105 Carbon Dioxide 27.4 BUN 17.0 Creatinine 1.01 Glucose 116 H Calcium 8.2 L Progress Note: A&P Assessment and Plan (1) Lumbar stenosis with neurogenic claudication: Assessment and Plan: POD #2, pain control per primary surgical team along with restrictions, and discharge planning and narcotic prescriptions. Try to avoid IV sedative pain medications. continue gabapentin and oxycodone, zanaflex. (2) Hypothyroidism: Assessment and Plan: continue levothyroxine Qualifiers: Hypothyroidism type: acquired Qualified Code(s): E03.9 - Hypothyroidism, unspecified (3) Pulmonary hypertension: Assessment and Plan: monitor respiratory status, inhalers as needed. OPEP (4) GERD (gastroesophageal reflux disease): Assessment and Plan: continue protonix Qualifiers: Esophagitis presence: without esophagitis Qualified Code(s): K21.9 - Gastro-esophageal reflux disease without esophagitis (5) COPD (chronic obstructive pulmonary disease): Assessment and Plan: continue nebs, add OPEP and pulmicort.Chest X-ray clear 08/11/24 Qualifiers: COPD type: emphysema Emphysema type: panlobular Qualified Code(s): J43.1 - Panlobular emphysema (6) On home oxygen therapy: Assessment and Plan: due to #5 (7) BPH with obstruction/lower urinary tract symptoms: Assessment and Plan: continue flomax Plan Patient is a full code Patient is in surgical observation and is expected to be discharged home today per primary surgical team with close follow up.
[2024-08-12] MEDS: BISACODYL 5 MG TABLET PO (08:18)
[2024-08-12] MEDS: GABAPENTIN 100 MG CAPSULE PO (08:18)
[2024-08-12] MEDS: PREDNISONE 5 MG TABLET PO (08:18)
[2024-08-12] MEDS: HYDROXYZINE HCL 25 MG TABLET PO (08:18)
[2024-08-12] MEDS: TAMSULOSIN HCL 0.4 MG CAPSULE PO (08:18)
[2024-08-12] MEDS: SENNOSIDES/DOCUSATE SODIUM 1 TAB TABLET PO (08:19)
[2024-08-12] MEDS: POLYETHYLENE GLYCOL 3350 17 GM POWDER PACKET PO (08:19)
--- NOTE | 2024-08-12 10:02 | PM.ORCN ---
History of Present Illness HPI Chief complaint: spinal stenosis Narrative: Error [facility] Medical History (Updated 08/11/24 @ 07:53 by Shahnaz Saravia DO) Shoulder pain ?M25.519 - Pain in unspecified shoulder (ICD-10) Arthritis ?M19.90 - Unspecified osteoarthritis, unspecified site (ICD-10) Dyspnea on exertion ?R06.09 - Other forms of dyspnea (ICD-10) Hypothyroidism ?E03.9 - Hypothyroidism, unspecified (ICD-10) History of brachytherapy ?Z92.3 - Personal history of irradiation (ICD-10) Ruptured spleen ?S36.09XA - Other injury of spleen, initial encounter (ICD-10) Macular degeneration ?H35.30 - Unspecified macular degeneration (ICD-10) Cataract ?H26.9 - Unspecified cataract (ICD-10) Dry mouth ?R68.2 - Dry mouth, unspecified (ICD-10) Pulmonary hypertension ?I27.20 - Pulmonary hypertension, unspecified (ICD-10) On home oxygen therapy ?Z99.81 - Dependence on supplemental oxygen (ICD-10) Hypothyroidism (acquired) ?E03.9 - Hypothyroidism, unspecified (ICD-10) Esophagitis ?K20.90 - Esophagitis, unspecified without bleeding (ICD-10) Gastritis ?K29.70 - Gastritis, unspecified, without bleeding (ICD-10) BPH with obstruction/lower urinary tract symptoms ?N40.1 - Benign prostatic hyperplasia with lower urinary tract symptoms (ICD-10) ?N13.8 - Other obstructive and reflux uropathy (ICD-10) Abnormal EKG ?R94.31 - Abnormal electrocardiogram [ECG] [EKG] (ICD-10) COVID-19 ?U07.1 - COVID-19 (ICD-10) Prostate cancer ?C61 - Malignant neoplasm of prostate (ICD-10) Pruritus ?L29.9 - Pruritus, unspecified (ICD-10) GERD (gastroesophageal reflux disease) ?K21.9 - Gastro-esophageal reflux disease without esophagitis (ICD-10) Emphysema lung ?J43.9 - Emphysema, unspecified (ICD-10) COPD (chronic obstructive pulmonary disease) ?J44.9 - Chronic obstructive pulmonary disease, unspecified (ICD-10) Back pain ?M54.9 - Dorsalgia, unspecified (ICD-10) Spinal stenosis ?M48.00 - Spinal stenosis, site unspecified (ICD-10) Surgical History (Updated 07/27/24 @ 13:19 by Jessie Altamirano NP) H/O abdominal surgery ?Z98.890 - Other specified postprocedural states (ICD-10) History of spinal surgery (1981) ?Z98.890 - Other specified postprocedural states (ICD-10) S/P cataract extraction and insertion of intraocular lens ?Z98.49 - Cataract extraction status, unspecified eye (ICD-10) ?Z96.1 - Presence of intraocular lens (ICD-10) S/P epidural steroid injection ?Z92.241 - Personal history of systemic steroid therapy (ICD-10) History of open reduction and internal fixation (ORIF) procedure (~1984) ?Z98.890 - Other specified postprocedural states (ICD-10) History of hernia repair ?Z98.890 - Other specified postprocedural states (ICD-10) ?Z87.19 - Personal history of other diseases of the digestive system (ICD-10) H/O colonoscopy ?Z98.890 - Other specified postprocedural states (ICD-10) Family History (Updated 07/27/24 @ 13:04 by Jessie Altamirano NP) Other Family history of diabetes mellitus Family history of lung cancer Family history of myocardial infarction Social History (Updated 07/27/24 @ 12:53 by Jessie Altamirano NP) Within the past year, how often did you have a drink containing alcohol: never Score interpretation: A score less than 4 is consistent with normal alcohol consumption. Smoking status: Former smoker Non-prescribed substance use: denies use Highest level of school completed/degree received: 7th grade Little interest or pleasure in doing things: not at all Feeling down, depressed, or hopeless: not at all Meds Home Medications and Allergies Home Medications ?Medication ?Instructions ?Recorded ?Confirmed ?Type albuterol sulfate 90 mcg/actuation 1 puff inhalation Q4H PRN 01/14/23 08/10/24 History aerosol inhaler shortness of breath or wheezing budesonide 160 mcg-glycopyr 9 2 inh inhalation BID 01/14/23 08/10/24 History mcg-formot 4.8 mcg/actuation HFA inhaler (Breztri Aerosphere) levothyroxine 50 mcg tablet 50 mcg PO DAILY 01/14/23 08/10/24 History prednisone 5 mg tablet 5 mg PO DAILY 01/14/23 08/10/24 History tamsulosin 0.4 mg capsule 0.4 mg PO BID 01/14/23 08/10/24 History vit C 250 mg-vit E 90 mg-zinc 40 1 tab PO BID 01/14/23 08/10/24 History mg-copper 1 ke-jtdaep-lqzuve capsule (PreserVision AREDS-2) gabapentin 100 mg capsule 100 mg PO DAILY #90 caps 07/11/23 08/10/24 Rx pantoprazole 40 mg tablet,delayed 40 mg PO DAILY 07/27/24 08/10/24 History release hydroxyzine HCl 25 mg tablet 25 mg PO DAILY 08/10/24 08/10/24 History Allergies Allergy/AdvReac Type Severity Reaction Status Date / Time No Known Drug Allergies Allergy Verified 08/10/24 06:51 Exam Constitutional Vital Signs, click to edit/add: Last Vital Signs Temp 97.8 F 08/12/24 07:26 Pulse 93 H 08/12/24 09:56 Resp 16 08/12/24 07:26 BP 118/64 08/12/24 07:26 Pulse Ox 94 L 08/12/24 09:56 O2 Del Method Nasal Cannula 08/12/24 07:26 O2 Flow Rate 3 08/12/24 03:00 Results Labs Labs: Abnormal lab results 08/12/24 Range/Units 05:39 RBC 3.18 L (4.70-6.10) 10^6/uL Hgb 10.3 L (14.0-18.0) g/dL Hct 31.0 L (42.0-54.0) % MCV 97.5 H (80.0-94.0) fL Neut % (Auto) 76.6 H (43.0-75.0) % Lymph % (Auto) 8.5 L (20.5-60.0) % [place] % (Auto) 13.0 H (1.7-12.0) % Neut # (Auto) 6.8 H (1.4-6.5) 10^3/uL Lymph # (Auto) 0.8 L (1.2-3.8) 10^3/uL [place] # (Auto) 1.2 H (0.3-0.8) 10^3/uL Abs Immat Gran (auto) 0.06 H (0.00-0.03) 10^3/uL Imm/Tot Granulo (auto) 0.7 H (0.0-0.5) % Glucose 116 H (74-106) mg/dL Calcium 8.2 L (8.5-10.1) mg/dL H & H 08/11/24 08/12/24 Range/Units 05:35 05:39 Hgb 12.4 L 10.3 L (14.0-18.0) g/dL Hct 37.2 L 31.0 L (42.0-54.0) % All other labs normal. Assessment and Plan Assessment and Plan (1) Lumbar stenosis with neurogenic claudication:
--- NOTE | 2024-08-12 10:09 | PM.ORPN ---
Progress Note: A&P Assessment and Plan (1) Lumbar stenosis with neurogenic claudication: Assessment and Plan: POD #2 L5-S1 decompression/fusion - Neurovascularly intact bilateral lower extremities - Ambulate as tolerated with LSO brace on when out of bed - Hemovac output 45 mL in 24 hours, drain removed at bedside, patient tolerated well. Dressing for this can may need to be changed more often throughout the day at first, change daily if not saturated. 4x4 with tape is fine. - Bowel regimen, continue at home while on pain medications. - Post op pain meds sent to pharmacy, pt confirmed with family member that they have picked them up, Flexeril 10mg and Percocet 5mg. Percocet may have caused patient to be confused briefly, he told me he is aware that he doesn't do well mentally when in the hospital, patients family can call us when he gets home if he is still having issues with confusion and we may need to change meds. - Will discharge patient to home today, Hospitalist cleared patient medically for discharge. Plan discussed and agreed upon by my Supervising Physician, Dr Portillo. Subjective Subjective Principal diagnosis: Post Op Care status post L5-S1 decompression and fusion Interval history: Patient is POD #2 status post L5-S1 decompression/fusion and continues to do well. Pain is controlled. Per his RN, he did have a bit of confusion after she changed his IV and he had called his and was confused. Other than this episode she has not had any issues with disorientation and he has been A&O x 3. Patient is still getting some muscle spasms in his legs and numbness in his feet depending on his position. He has not had a BM but does endorse flatus still. He states that he does not go every day and has not been eating a lot here. He denies abdominal pain. Exam Narrative Exam Narrative: On exam patient is in no distress, sitting in the chair, age-appropriate, alert and oriented x 3. Hemovac in place. There is 5/5 strength to the right lower extremity, 4+/5 strength to the left lower extremity in hip flexion/extension, otherwise 5/5. 2+ DP pulses palpated. Sensation is intact light touch to bilateral lower extremities. Constitutional Vital Signs, click to edit/add: Last Vital Signs Temp 97.8 F 04/06/25 07:26 Pulse 93 H 08/12/24 09:56 Resp 16 08/12/24 07:26 BP 118/64 08/12/24 07:26 Pulse Ox 94 L 08/12/24 09:56 O2 Del Method Nasal Cannula 08/12/24 07:26 O2 Flow Rate 3 08/12/24 03:00
--- NOTE | 2024-08-12 10:40 | PT.DAILY ---
Physical Therapy Daily Note PT Daily Note/Assess Start: 08/11/24 10:21 Freq: Status: Active Protocol: Document 08/12/24 10:30 [id number] (Rec: 08/12/24 10:40 [id number]) Physical Therapy Daily Note/Assessment Time In/Time Out Time In 10:11 Time Out 10:29 Pain In Pain Level 4 Pain Out Pain Level 4 Subjective Subjective Patient seated in chair at beside. Patient on 2L O2 NC . Patient agreeable to participate with PT. Son present during treatment. Chair alarm disengaged. Therapeutic Exercise Time Therapeutic Exercise 5 Minutes (minutes) Therapeutic Exercise 0 Units Therapeutic Exercise Treatment Therapeutic Exercise Seated JP LE ankle/heel raises, marching, hip ABD x 10 Treatment reps to increase LE strength with gait and ADL's Therapeutic Activity Time Therapeutic Activity 13 Minutes (minutes) Therapeutic Activity 1 Units Therapeutic Activity Treatment Chair Transfer Contact Guard Assist Ability Therapeutic Activity Patient is MAX +1 to henri lumbar brace. Patient O2 Comments level at 95% prior to functional movement. Sit to stand to 2WW transfer is CGA +1 with verbal cues for safe hand placement on arms of chair. Per nursing patient is allow to ambulate without O2. Patient ambulated ~60 feet with 2WW with CGA +1. One episode of L knee buckling ~ 40 feet into walk, patient is able to self correct without assistance. Patient returned to chair at beside and chair alarm engaged. CBWR and tray placed beside patient. All post treatment needs met. Patient O2 level post ambulation was 82%, required ~2 minutes for O2 level to return to 95%. Total Physical Therapy Time Total Therapy 18 Minutes Total Physical 1 Therapy Units Summary Daily Note Summary Patient re-educated to ensure lumbar brace is on when up. States he understands. Patient demonstrates increased distance walking this date. Patient verbalizes increased JP calf pain during walking. Experienced one episode of L knee buckling with self correction. Patient would benefit from HH PT upon DC to address LE weakness and overall functional deficits for return to PLOF.
[2024-08-12] MEDS: [UNRECOGNIZED DRUG - REMARK] 1 EACH IH (11:08)
--- NOTE | 2024-08-13 13:34 | CM.NOTE ---
Spoke with Dr. Saravia, pt had home oxygen prn and discharged on Tuesday to home. New walk test and order for continous oxygen faxed to [facility]. Face Sheet, discharge, H&P and order.
--- NOTE | 2024-08-13 14:30 | W.PM.OPNOTE ---
Surgery Operative Note Operative Note Procedure Date: 08/10/24 Time Out Performed: yes Pre-op Diagnosis: 1. Chronic bilateral L5 spondylolysis 2. L5-S1 spondylolisthesis, grade 1 3. L5-S1 degenerative disc disease with discogenic back pain and leg pain 4. L5-S1 lumbar stenosis with radiculopathy Post-op Diagnosis: same as pre-op Procedures performed: 1. ?L5-S1 bilateral laminectomy, partial medial facetectomies and foraminotomies of L5 and S1 nerve roots along with total facetectomies at L5-S1 for complete decompression of the bilateral L5 nerve roots 2. ?L5-S1 posterior spinal fusion. 3. ?L5-S1 posterior spinal instrumentation, Goblin, Medynus instrumentation. 4. ?Use of local autograft bone Anesthesia: CRISTÓBAL Primary Surgeon: Candis Portillo Complications: None Estimated blood loss (mL): 400 Findings: Stenosis Specimens: None Drains: Hemovac Indications for Procedures: This is a 83-year-old male with refractory back and leg pain from degenerative disc disease and lumbar stenosis L5-S1. Patient also with a spondylolytic spondylolisthesis at L5-S1. ?Patient has failed full conservative therapy including medication management, physical therapy, and epidural steroid injections. Due to the persistence of symptoms and reduction in the ADLs, patient elected surgical treatment.?Patient, therefore, understood indications for the surgery as well as its risks, benefits, and alternatives. ?These risks include but are not limited to paralysis, infection, hematoma, dural tear, nerve root injury, nonunion, DVT/PE, stroke, IA, etc. ?All questions were answered. Informed consent was obtained. Detailed description of Procedure: The patient was taken to the operating room by the Anesthesiology Service and had satisfactory general anesthesia.?A first-generation cephalosporin was given within 1 hour of surgical incision. ?2 gm of cefazolin was given IV. ?Venous thromboembolic prophylaxis was performed with sequential devices. The patient was then positioned prone on a standard OSI frame with the abdomen hanging free and all bony prominences well padded. ?The low back was then prepped and draped in its entirety in the usual sterile fashion. Before incision, a formal timeout was taken per protocol. We next took a midline longitudinal approach and performed subperiosteal dissection out to the tips of the transverse processes of L5 and S1.?Intraoperative localization of level was confirmed using anatomic landmarks. ?We then began the laminectomy as well as decompression by removing the spinous process of L5. ?We entered the spinal canal, resecting the ligamentum flavum in its entirety over this region. Patient had significant stenosis in the lateral recess and neural foramina.?Partial medial facetectomy was then performed with an osteotome to get lateral to the facet overhang, but just medial to the pedicles and nerve roots. ?Kerrison's were then used to perform foraminotomies of the L5 and S1 nerve roots bilaterally. In order to get further lateral to the bilateral L5 nerve root, total facetectomy was performed at L5-S1. ?In this way, the bilateral L5 nerve root was completely visualized and foraminized. ?In this way, we completed decompression at L5-S1 with foraminotomies of the L5 and S1 nerve roots bilaterally. Satisfied with this, we then turned our attention to perform spinal instrumentation and posterolateral fusion. Using anatomic landmarks and guided by direct visualization of the pedicles from within the canal, pedicle screws were placed bilaterally at L5 and S1. ?All the screws were completely interosseous as determined by bony palpation except for the tip of the S1 screw which remained bicortical by design. ?Before the screws were inserted, the transverse processes were decorticated with a high-speed bur at L5 and S1. ?Local autograft bone was placed over the decorticated elements bilaterally from L5-S1. The screws were then inserted which were under tapped by 1 mm. ?Two rods were placed from L5-S1, set screws engaged and tightened down to their final torque.?Everything was tightened down. ?A very rigid construct was achieved. ?Final x-ray was taken, demonstrated good position of the spine and all of the implants. Satisfied with this, we then achieved hemostasis. ?We then copiously irrigated the wound with Irrisept. ?We then inserted a Hemovac drain through a separate stab incision. ?The wound was then closed in layer with interrupted 1 and 2-0 Vicryl sutures and dusted with vancomycin powder. ?A 3-0 Monocryl was used for the skin. The skin edges were sealed with Dermabond. ?A dry sterile dressing was applied. ?The patient was then returned to the hospital bed, extubated, and taken to the recovery room in stable condition. Spinal cord monitoring remained stable throughout the operation. SALES DONOR RECRUITMENT REPRESENTATIVE: ?BHARGAVI Worthy PA-C, assisted throughout the procedure with positioning, draping, retraction, wound closure, and dressing application. POSTOPERATIVE CARE: ?The patient will be recovered in PACU and then a regular nursing floor. ??Once the drainage is low and pain is under control, patient will be discharged home per clinical indication. Patient will follow up in the office in 6 weeks. ?At that time, AP and lateral x-rays of the lumbar spine will be obtained to assess instrumentation and fusion. MODIFIER 22: ?Due to the patient's BMI greater than 30, modifier 22 will be applied due to the patient's case taking 50% longer due to poor visualization and orientation. Parking Meter Servicer: Shabbir Castelan
--- NOTE | 2024-08-13 15:37 | CM.NOTE ---
Spoke with Dr. Saravia regarding pt not having active order for oxygen through [place] [place]. SW talking with [place] [place] and they are running pt's insurance.
--- NOTE | 2024-08-13 15:45 | SWNOTE1 ---
See case management notes as well. ILIANA received call from Ivette at [facility] and she received referral and Ivette asked if pt was discharging today? ILIANA advised that he left over the weekend. ILIANA advised Ivette that physician was told by patient that he had PRN oxygen from [facility]. Ivette confirmed that he does not, but she will process the order and call SW back. ILIANA updated case management, who updated doctor.
--- NOTE | 2024-08-14 10:09 | SWNOTE1 ---
ILIANA called [facility] to check on pt's home oxygen. Ivette at [facility] stated it has been approved and it will be delivered today and [facility] reaching out to pt.
--- NOTE | 2024-08-14 14:09 | CM.DCFOLLOWU ---
Person spoke with:patient's How are you feeling? well How is your pain? none Did you understand your discharge instructions?yes Do you have any questions about your discharge instructions?no Were you given any prescriptions at discharge?yes Were you able to get your prescriptions filled?yes Do you understand how to take your medications as ordered?yes Do you have any questions about your follow up appointment and do you plan to keep your follow up appointment? no questions, follow ups reviewed Is there anything else that you would like to discuss? no Questions/Comments/Concerns/Other: none
== END 2024-08-12 11:10 | disposition home health service (06) ==
LOC: SURGOUT 11:45 → ICU 11:45 → MS 08-11 01:48
PROVIDERS: Family Medicine; Admitting Provider Family Medicine; PCP Nurse Practitioner Family; Visit Provider Orthopaedic Surgery Orthopaedic Surgery of the Spine
PROC: (CPT 20936; principal; 2024-08-10 07:30)
DX: M51.372 Other intervertebral disc degeneration, lumbosacral region with discogenic back pain and lower extremity pain (principal); M48.07 Spinal stenosis, lumbosacral region; Z87.891 Personal history of nicotine dependence; M43.17 Spondylolisthesis, lumbosacral region; M54.17 Radiculopathy, lumbosacral region; M48.062 Spinal stenosis, lumbar region with neurogenic claudication; R25.2 Cramp and spasm; Z99.81 Dependence on supplemental oxygen; E03.9 Hypothyroidism, unspecified; Z79.890 Hormone replacement therapy; K21.9 Gastro-esophageal reflux disease without esophagitis; I27.20 Pulmonary hypertension, unspecified; J43.1 Panlobular emphysema; N40.1 Benign prostatic hyperplasia with lower urinary tract symptoms; I50.9 Heart failure, unspecified; J96.11 Chronic respiratory failure with hypoxia; I11.0 Hypertensive heart disease with heart failure
CPT/HCPCS: 20936; 22612; 22840; 63047; 63048; 36415; 71045; 72100; 80048; 85025; 94640; 94667; 94668; 94761; 95861; 95938; 96365; 96367; 96375; 96376; 97161; 97530; C1713; G0378; J0690; J1100; J1171; J1805; J2371; J2405; J2704; J3010; J3370; J3475; J7512

== ENCOUNTER 2024-09-03 14:59 | Emergency (ER) | payer MEDICARE, SELFPAY ==
[2024-09-03 15:05] VITALS: BP 168/96; PULSE 91; TEMP 36.6; O2SAT 96
--- NOTE | 2024-09-03 15:14 | ECG_ITS ---
[facility] Test Date: 2024-09-03 Pat Name: MICHAEL LITTLE Department: Room: - Gender: Male Twisthand: : 1940 Requested By: [id number] Order Number: [id number] Reading MD: AMINAH THOMAS Measurements Intervals [place] Rate: 83 P: 47 DE: 134 QRS: 45 QRSD: 76 T: 68 QT: 374 QTc: 413 Interpretive Statements 1100 Sinus rhythm 1970 with occasional ectopic premature complexes 9140 abnormal rhythm ECG Compared to ECG 09/03/2024 15:14:14 No significant changes Electronically Signed On 09-04-2024 12:22:30 EDT by AMINAH THOMAS
--- NOTE | 2024-09-03 15:21 | ECG_ITS ---
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 Measurements Intervals [place] Rate: 87 P: 138 MI: 138 QRS: 52 QRSD: 108 T: 37 QT: 382 QTc: 436 Interpretive Statements Sinus rhythm with frequent supraventricular premature complexes ARTIFACT IN LEAD(S) Otherwise normal ECG Compared to ECG 05/01/2024 07:55:45 No significant changes Electronically Signed On 09-03-2024 16:16:10 EDT by LILIAN PRECIADO M.D.
[2024-09-03 15:24] VITALS: PULSE 85; O2SAT 100
[2024-09-03 15:28] LABS: Basophils Percent Auto 0.4 % (0.2-2.0); Eosinophils Absolute Auto 0.1 10^3/uL (0.0-0.7); Eosinophils Percent Auto 0.9 % (0.9-7.0); Hematocrit 35.1 % (42.0-54.0); Hemoglobin 11.5 g/dL (14.0-18.0); Immature Granulocytes Abs Auto 0.03 10^3/uL (0.00-0.03); Immature Granulocytes Pct Auto 0.4 % (0.0-0.5); Lymphocytes Absolute Auto 0.6 10^3/uL (1.2-3.8); Lymphocytes Percent Auto 9.4 % (20.5-60.0); Mean Corpuscular HGB Conc 32.8 g/dL (29.9-35.2); Mean Corpuscular Hemoglobin 31.8 pg (25.9-34.0); Mean Platelet Volume 9.4 fL (9.5-13.5); Monocytes Absolute Auto 0.7 10^3/uL (0.3-0.8); Neutrophils Absolute Auto 5.4 10^3/uL (1.4-6.5); Neutrophils Percent Auto 78.9 % (43.0-75.0); Platelet Count 292 10^3/uL (150-450); Red Blood Count 3.62 10^6/uL (4.70-6.10); Red Cell Distribution Width 13.5 % (11.0-15.0); White Blood Count 6.8 10^3/uL (4.0-11.0)
[2024-09-03 15:40] LABS: INR 1.14; Prothrombin Time 11.9 sec (9.0-11.6)
[2024-09-03 15:44] LABS: Alanine Aminotransferase 23 U/L (16-63); Albumin Globulin Ratio 1.2; Albumin Level 3.6 g/dL (3.4-5.0); Alkaline Phosphatase 74 U/L (46-116); Anion Gap 13.2; Aspartate Amino Transferase 23 U/L (15-37); BUN Creatinine Ratio 15.6; Bilirubin Total 0.6 mg/dL (0.2-1.0); Carbon Dioxide 26.6 mmol/L (21.0-32.0); Chloride 105 mmol/L (98-107); Estimated GFR (African America >60 (>=60 mL/min/1.73m^2); Estimated GFR (Non-African Ame >60 (>=60 mL/min/1.73m^2); Globulin 3.1 g/dL; Glucose 104 mg/dL (74-106); Potassium 3.8 mmol/L (3.5-5.1); Sodium 141 mmol/L (136-145); Total Protein 6.7 g/dL (6.4-8.2)
[2024-09-03 15:46] LABS: Troponin I High Sensitivity 8.2 pg/mL (4.0-76.1)
[2024-09-03 16:25] VITALS: BP 158/78; PULSE 84; O2SAT 96
--- NOTE | 2024-09-03 16:25 | ED.SOB1 ---
HPI - SOB/Dyspnea General Chief Complaint: Shortness of Breath/Dyspnea Stated Complaint: SHORT OF BREATH Time Seen by Provider: 09/03/24 15:20 Source: patient Mode of arrival: Wheelchair History of Present Illness HPI Narrative: There she has come to the ER with a few days history of shortness of breath, although he mentioned that he has been having the shortness of breath since he had a back surgery, this shortness of breath is not associated with any nausea vomiting chest pain or any coughing, he mentioned that it is episodic The patient is wearing his 2 L nasal cannula as a baseline he did not use more than that at any time Related Data Home Medications ?Medication ?Instructions ?Recorded ?Confirmed albuterol sulfate 90 mcg/actuation 1 puff inhalation Q4H PRN 01/14/23 09/03/24 aerosol inhaler shortness of breath or wheezing budesonide 160 mcg-glycopyr 9 2 inh inhalation BID 01/14/23 09/03/24 mcg-formot 4.8 mcg/actuation HFA inhaler (Breztri Aerosphere) levothyroxine 50 mcg tablet 50 mcg PO DAILY 01/14/23 09/03/24 prednisone 5 mg tablet 5 mg PO DAILY 01/14/23 09/03/24 tamsulosin 0.4 mg capsule 0.4 mg PO BID 01/14/23 09/03/24 vit C 250 mg-vit E 90 mg-zinc 40 1 tab PO BID 01/14/23 09/03/24 mg-copper 1 [id number] capsule (PreserVision AREDS-2) pantoprazole 40 mg tablet,delayed 40 mg PO DAILY 07/27/24 09/03/24 release hydroxyzine HCl 25 mg tablet 25 mg PO DAILY 08/10/24 09/03/24 Previous Rx's ?Medication ?Instructions ?Recorded gabapentin 100 mg capsule 100 mg PO DAILY #90 caps 07/11/23 Allergies Allergy/AdvReac Type Severity Reaction Status Date / Time No Known Drug Allergies Allergy Verified 09/03/24 15:04 Review of Systems ROS Status of ROS 10 or more systems reviewed and unremarkable except as noted in history and below [facility] Medical History (Updated 09/03/24 @ 16:26 by Sara Mueller MD) Shoulder pain ?M25.519 - Pain in unspecified shoulder (ICD-10) Arthritis ?M19.90 - Unspecified osteoarthritis, unspecified site (ICD-10) Dyspnea on exertion ?R06.09 - Other forms of dyspnea (ICD-10) Hypothyroidism ?E03.9 - Hypothyroidism, unspecified (ICD-10) History of brachytherapy ?Z92.3 - Personal history of irradiation (ICD-10) Ruptured spleen ?S36.09XA - Other injury of spleen, initial encounter (ICD-10) Macular degeneration ?H35.30 - Unspecified macular degeneration (ICD-10) Cataract ?H26.9 - Unspecified cataract (ICD-10) Dry mouth ?R68.2 - Dry mouth, unspecified (ICD-10) Pulmonary hypertension ?I27.20 - Pulmonary hypertension, unspecified (ICD-10) On home oxygen therapy ?Z99.81 - Dependence on supplemental oxygen (ICD-10) Hypothyroidism (acquired) ?E03.9 - Hypothyroidism, unspecified (ICD-10) Esophagitis ?K20.90 - Esophagitis, unspecified without bleeding (ICD-10) Gastritis ?K29.70 - Gastritis, unspecified, without bleeding (ICD-10) BPH with obstruction/lower urinary tract symptoms ?N40.1 - Benign prostatic hyperplasia with lower urinary tract symptoms (ICD-10) ?N13.8 - Other obstructive and reflux uropathy (ICD-10) Abnormal EKG ?R94.31 - Abnormal electrocardiogram [ECG] [EKG] (ICD-10) COVID-19 ?U07.1 - COVID-19 (ICD-10) Prostate cancer ?C61 - Malignant neoplasm of prostate (ICD-10) Pruritus ?L29.9 - Pruritus, unspecified (ICD-10) GERD (gastroesophageal reflux disease) ?K21.9 - Gastro-esophageal reflux disease without esophagitis (ICD-10) Emphysema lung ?J43.9 - Emphysema, unspecified (ICD-10) COPD (chronic obstructive pulmonary disease) ?J44.9 - Chronic obstructive pulmonary disease, unspecified (ICD-10) Back pain ?M54.9 - Dorsalgia, unspecified (ICD-10) Spinal stenosis ?M48.00 - Spinal stenosis, site unspecified (ICD-10) Surgical History (Updated 07/27/24 @ 13:19 by Jessie Altamirano NP) H/O abdominal surgery ?Z98.890 - Other specified postprocedural states (ICD-10) History of spinal surgery (1981) ?Z98.890 - Other specified postprocedural states (ICD-10) S/P cataract extraction and insertion of intraocular lens ?Z98.49 - Cataract extraction status, unspecified eye (ICD-10) ?Z96.1 - Presence of intraocular lens (ICD-10) S/P epidural steroid injection ?Z92.241 - Personal history of systemic steroid therapy (ICD-10) History of open reduction and internal fixation (ORIF) procedure (~1984) ?Z98.890 - Other specified postprocedural states (ICD-10) History of hernia repair ?Z98.890 - Other specified postprocedural states (ICD-10) ?Z87.19 - Personal history of other diseases of the digestive system (ICD-10) H/O colonoscopy ?Z98.890 - Other specified postprocedural states (ICD-10) Family History (Updated 07/27/24 @ 13:04 by Jessie Altamirano NP) Other Family history of diabetes mellitus Family history of lung cancer Family history of myocardial infarction Social History (Updated 07/27/24 @ 12:53 by Jessie Altamirano NP) Within the past year, how often did you have a drink containing alcohol: never Score interpretation: A score less than 4 is consistent with normal alcohol consumption. Smoking status: Former smoker Non-prescribed substance use: denies use Highest level of school completed/degree received: 7th grade Little interest or pleasure in doing things: not at all Feeling down, depressed, or hopeless: not at all Exam Narrative Exam Narrative: Nurses notes and vital signs reviewed and patient is not hypoxic. General: Well-appearing and in no apparent distress. Skin: Warm, dry, no pallor noted. No rash. Head: Normocephalic, atraumatic. Neck: Supple, non-tender. Eye: Pupils are equal, round and EOMI. No scleral icterus. Ears, Nose, Mouth, and Throat: TM are clear, no nasal mucosal hypertrophy. Oral mucosa is moist, no posterior oropharynx erythema, uvula is mid-line Cardiovascular: Regular Rate and Rhythm without murmur, gallop or rub. Respiratory :distant breathing sound bilaterally Chest Wall: no tenderness Back: No midline thoracic or lumbar vertebral tenderness. No CVA tenderness Musculoskeletal: normal ROM, no calf or popliteal tenderness, no lower extremity edema/swelling GI: Abdomen is soft, non-distended. Normal bowel sounds. No masses appreciated. No tenderness to palpation. No rebound, guarding, or rigidity noted. Neurological: A&O x4. No cranial nerve dysfunction observed. No truncal ataxia. Moves all extremities. Sensation intact. Psychiatric: Cooperative and interactive. Normal mood and affect. Constitutional Vital Signs, click to edit/add: Last Vital Signs Temp 97.9 F 09/03/24 15:05 Pulse 84 09/03/24 16:25 Resp 18 09/03/24 16:25 BP 158/78 H 09/03/24 16:25 Pulse Ox 96 09/03/24 16:25 O2 Del Method Nasal Cannula 09/03/24 15:24 O2 Flow Rate 2 09/03/24 15:24 Course Vital Signs Vital signs: Vital Signs Temperature 97.9 F 09/03/24 15:05 Pulse Rate 91 H 09/03/24 15:05 Respiratory Rate 20 09/03/24 15:05 Blood Pressure 168/96 H 09/03/24 15:05 Pulse Oximetry 96 09/03/24 15:05 Oxygen Delivery Method Room Air 09/03/24 15:05 Temperature 97.9 F 09/03/24 15:05 Pulse Rate 84 09/03/24 16:25 Respiratory Rate 18 09/03/24 16:25 Blood Pressure 158/78 H 09/03/24 16:25 Pulse Oximetry 96 09/03/24 16:25 Oxygen Delivery Method Nasal Cannula 09/03/24 15:24 Oxygen Delivery Flow Rate 2 09/03/24 15:24 MDM - SOB/Dyspnea MDM Narrative Medical decision making narrative: Patient EKG showing sinus rhythm with a heart rate of 87 there was some artifact but there is no ST elevation or depression Patient had no chest pain at any time CBC chemistry showed no acute significant pathology and his chest x-ray showed no acute pathology as well The patient has been short of breath since he had the surgery he actually was evaluated by pulmonary critical and started on oxygen because on movement he needs oxygen sometimes His shortness of breath today is not continuous it is episodic. By the time he came back to evaluate the patient he was feeling much better he was able to ambulate with no difficulty, I did explain to the patient that right now initially my plan was to keep him for observation but since he was feeling much better he was discharged to follow-up with his primary care he is to come back to the ER in case of any new symptoms or concerns It is highly unlikely that the patient have a PE especially that the shortness of breath started from the day of surgery and with shortness of breath being episodic that is not likely The patient is to follow up with primary care physician in next 2-3 days or to return to the emergency department should any of the signs or symptoms worsen or new symptoms develop. The patient agrees with the following Diagnosis and Treatment plan and the patient will be discharged home. Lab Data Labs: Lab Results 09/03/24 Range/Units 15:12 WBC 6.8 (4.0-11.0) 10^3/uL RBC 3.62 L (4.70-6.10) 10^6/uL Hgb 11.5 L (14.0-18.0) g/dL Hct 35.1 L (42.0-54.0) % MCV 97.0 H (80.0-94.0) fL MCH 31.8 (25.9-34.0) pg MCHC 32.8 (29.9-35.2) g/dL RDW 13.5 (11.0-15.0) % Plt Count 292 (150-450) 10^3/uL MPV 9.4 L (9.5-13.5) fL Neut % (Auto) 78.9 H (43.0-75.0) % Lymph % (Auto) 9.4 L (20.5-60.0) % [place] % (Auto) 10.0 (1.7-12.0) % Eos % (Auto) 0.9 (0.9-7.0) % Baso % (Auto) 0.4 (0.2-2.0) % Neut # (Auto) 5.4 (1.4-6.5) 10^3/uL Lymph # (Auto) 0.6 L (1.2-3.8) 10^3/uL [place] # (Auto) 0.7 (0.3-0.8) 10^3/uL Eos # (Auto) 0.1 (0.0-0.7) 10^3/uL Baso # (Auto) 0.0 (0.0-0.1) 10^3/uL Abs Immat Gran (auto) 0.03 (0.00-0.03) 10^3/uL Imm/Tot Granulo (auto) 0.4 (0.0-0.5) % PT 11.9 H (9.0-11.6) sec INR 1.14 Sodium 141 (136-145) mmol/L Potassium 3.8 (3.5-5.1) mmol/L Chloride 105 (98-107) mmol/L Carbon Dioxide 26.6 (21.0-32.0) mmol/L Anion Gap 13.2 BUN 14.0 (7.0-18.0) mg/dL Creatinine 0.90 (0.70-1.30) mg/dL Est GFR ( Amer) >60 (>=60 mL/min/1.73m^2) Est GFR (Non-Af Amer) >60 (>=60 mL/min/1.73m^2) BUN/Creatinine Ratio 15.6 Glucose 104 (74-106) mg/dL Calcium 9.0 (8.5-10.1) mg/dL Total Bilirubin 0.6 (0.2-1.0) mg/dL AST 23 (15-37) U/L ALT 23 (16-63) U/L Alkaline Phosphatase 74 (46-116) U/L Troponin I High Sens 8.2 (4.0-76.1) pg/mL Total Protein 6.7 (6.4-8.2) g/dL Albumin 3.6 (3.4-5.0) g/dL Globulin 3.1 g/dL Albumin/Globulin Ratio 1.2 Discharge Plan Discharge Chief Complaint: Shortness of Breath/Dyspnea Clinical Impression: Dyspnea Patient Disposition: Home, Self-Care Time of Disposition Decision: 16:25 Condition: Good Prescriptions / Home Meds: No Action albuterol sulfate 90 mcg/actuation HFA aerosol inhaler 1 puff INHALATION Q4H PRN (Reason: shortness of breath or wheezing) PreserVision AREDS-2 250-90-40-1 mg capsule 1 tab PO BID tamsulosin 0.4 mg capsule 0.4 mg PO BID levothyroxine 50 mcg tablet 50 mcg PO DAILY prednisone 5 mg tablet 5 mg PO DAILY Breztri Aerosphere 160-9-4.8 mcg/actuation HFA aerosol inhaler 2 inh inhalation BID pantoprazole 40 mg tablet,delayed release (DR/EC) 40 mg PO DAILY hydroxyzine HCl 25 mg tablet 25 mg PO DAILY gabapentin 100 mg capsule 100 mg PO DAILY Qty: 90 0RF Print Language: Icelandic Instructions: Dyspnea (ED) Referrals: Blayne Marion MD [Primary Care Provider] - 1 week
== END 2024-09-03 16:32 | disposition home or self-care (01) ==
PROVIDERS: Emergency Provider Emergency Medicine; PCP Family Medicine
DX: R06.00 Dyspnea, unspecified (principal); Z99.81 Dependence on supplemental oxygen; Z87.891 Personal history of nicotine dependence; Z98.890 Other specified postprocedural states
CPT/HCPCS: 36415; 71045; 80053; 84484; 85025; 85610; 93005; 99285

== ENCOUNTER 2024-10-09 21:23 | Emergency (ER) | payer MEDICARE, SELFPAY ==
--- OUTSIDE RECORDS SUMMARY | 2020-11-11 09:30 | XMS_ITS | Continuity of Care Document ---
Author Organization [facility] Address [address] [place] [address] Phone Care Team Providers Care Supervisor Special Education Name Role Phone David Iglesias MD Unavailable Unavailable Allergies, Adverse Reactions, Alerts Substance Reaction Status Criticality No Known Allergies Active No Inform ation Medications Medication Instructions Dosage Effective Dates (start - stop) Status Comments AREDS 2 BUCCAL TABLET - Active TRELEGY ELLIPTA (unknown strength) inhale 1 puff by inhalation route every day at the same time each day Not Available - Active albuterol sulfate 2.5 mg/3 mL (0.083 %) solution for nebulization inhale 3 milliliter by nebulization route 3 times every day 2.5 MG - Active Flomax 0.4 mg capsule take 1 capsule by oral route every day - Active CLEAR EYES COMPLETE (unknown strength) OU PRN as needed Not Available - Active Tirosint 25 mcg capsule take 1 capsule by oral route every day 25 MCG - Active Symbicort 160 mcg-4.5 mcg/actuation HFA aerosol inhaler inhale 1 by inhalation route once in the morning and evening - No Longer Active Procedures Procedure Date Ophthal DX Image Post Retina I And R Uni Or Bi OFFICE/OUTPATIENT VISIT, EST, Moderate J Ophthal DX Image Post Retina I And R Uni Or Bi Eye Exam Established Patient Comprehensi ve 1 Or More Visits Ophthal DX Image Post Retina I And R Uni Or Bi Eye Exam Established Patient Comprehensi ve 1 Or More Visits Ophthal DX Image Post Retina I And R Uni Or Bi Eye Exam Established Patient Intermediat e Ophthal DX Image Post Retina I And R Uni Or Bi Eye Exam Established Patient Comprehensi ve 1 Or More Visits Fluorescein Angiography Fundus Photos Medical Eye Exam, Est With Tx 9 OCT Medical Eye Exam, Est With Tx 8 OCT Medical Eye Exam, Est With Tx 8 OCT Medical Eye Exam, Est With Tx 8 OCT Medical Eye Exam, Established 8 OCT Medical Eye Exam, Established 8 OCT Medical Eye Exam, Est With Tx 7 OCT Medical Eye Exam, Established 7 OCT Medical Eye Exam, Est With Tx 7 Intravitreal Injection OCT Eylea Aflibercept Intravitreal Injection OCT Eylea Aflibercept Intravitreal Injection OCT Eylea Aflibercept Medical Eye Exam, Established 7 Intravitreal Injection OCT Eylea Aflibercept Intravitreal Injection OCT Eylea Aflibercept Intravitreal Injection OCT Eylea Aflibercept Medical Eye Exam, Established 7 Intravitreal Injection OCT Eylea Aflibercept Intravitreal Injection OCT Eylea Aflibercept Intravitreal Injection OCT Eylea Aflibercept Medical Eye Exam, Established 6 Intravitreal Injection OCT Injection Bevacizumab .25 MG Intraocular Avastin Medical Eye Exam, Established With Tx No Intravitreal Injection OCT Injection Bevacizumab .25 MG Intraocular Avastin Intravitreal Injection OCT Injection Bevacizumab .25 MG Intraocular Avastin Fluorescein Angiography Fluorescein Angiography Intravitreal Injection Fundus Photos Injection Bevacizumab .25 MG Intraocular Avastin New Patient, Moderate Advance Directives Directive Yes / No Effective Date File Name No Information Encounters Encounter Description Practice Location Reason(s) For Visit Diagnoses Date Provider Providers Copied on Encounter OFFICE/OUTPA TIENT VISIT, EST, Moderate [facility], [address] [place], [address], [place] tel:[phone] [facility] [place] AMD (chief complaint) Exudative age-rel mclr degn, left eye, with inactive scarNexdtve age-related mclr degn, right eye, intermed dry stageVitreous degeneration, bilateralPresence of intraocular lens 1 Kelsie Hernandez. [address] [place] [address], [place], [place], [id number] , [place]. tel:[phone] Referring Provider: Hira Quintanilla, [address], [place], [address]. tel:[phone] [facility], [address] [place], [place], [facility], [place] tel:[phone] [facility] [place] macular degeneration (chief complaint)sta ble vision (chief complaint) Exudative age-rel mclr degn, left eye, with inactive scarNexdtve age-related mclr degn, right eye, intermed dry stageVitreous degeneration, bilateralPresence of intraocular lens 0 Kelsie Pedroza [address], [address], [place], [place], [address] , [place]. tel:[phone] Referring Provider: aDvid Colunga, [address], [place], [address] . tel:[phone] [facility], [address] [place], [address], [place] tel:[phone] [facility] [place] macular degeneration (chief complaint)sta ble vision (chief complaint) Exdtve age-rel mclr degn, left eye, with actv chrdl neovasSerous detachment of retinal pigment epithelium, left eyeNexdtve age-related mclr degn, right eye, intermed dry stagePuckering of macula, right eyePresence of intraocular lens Apr- 9 Orgel Rachelle. [address], [address], [place], [place], [id number] , . tel:[phone] Referring Provider: Rachelle Colunga, [address], [place], [address] . 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 [address], [address], [place], [id number] , . [phone] Referring Provider: Rachelle Colunga, [address], [address] . tel:[phone] [facility], [address] [employer] [place], [place], [facility], tel:[phone] [facility] [place] macular degeneration (chief complaint) Exdtve age-rel mclr degn, left eye, with actv chrdl neovasSerous detachment of retinal pigment epithelium, left eyeNexdtve age-related mclr degn, right eye, intermed dry stagePuckering of macula, right eyePresence of intraocular lens 9 Orgel Rachelle. [address], [address], [place], [id number] , [place]. tel:[phone] Referring Provider: Hira Quintanilla, [address], [place], [address]. tel:[phone] [facility] Physician [facility], [address] [place], [address], [place] tel:[phone] [facility] [place] macular degeneration (chief complaint)dec reased vision (chief complaint) Exdtve age-rel mclr degn, left eye, with actv chrdl neovasSerous detachment of retinal pigment epithelium, left eyeNexdtve age-related mclr degn, right eye, intermed dry stagePuckering of macula, right eyePresence of intraocular lens Jul-05 09- 9 Orgel Rachelle. [address], [address], [place], [place], [address] , [place]. [phone] Referring Provider: Hira Quintanilla, [address], [place], [address]. tel:[phone] [facility]ician [facility], [address] [employer] [place], [place], [facility], [place] tel:[phone] [facility] [place] macular degeneration (chief complaint)sta ble vision (chief complaint) Exdtve age-rel mclr degn, left eye, with actv chrdl neovasSerous detachment of retinal pigment epithelium, left eyeNexdtve age-related mclr degn, right eye, intermed dry stagePuckering of macula, right eyePresence of intraocular lens 0 8 Orgel Rachelle. [address], [address], [place], [place], [id number] , [place]. tel:[phone] Referring Provider: Hira Quintanilla, [address], [place], [address]. 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 [address], [address], [place], [place], [address] , . tel:[phone] Referring Provider: Rachelle Colunga, [address], [place], [address] . 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 [address], Suite [facility], [place], [place], [address] , . tel:[phone] Referring Provider: Rachelle Colunga, [address] [facility], [place], [address] . tel:[phone] [facility], [address] [place], [place], [facility], tel:[phone] [facility] [place] macular degeneration (chief complaint)imp rovement in spot in vision (chief complaint)rep orts no visual changes (chief complaint) Exdtve age-rel mclr degn, left eye, with actv chrdl neovasSerous detachment of retinal pigment epithelium, left eyeNexdtve age-related mclr degn, right eye, intermed dry stageDrusen (degenerative) of macula, bilateralPuckering of macula, right eyePresence of intraocular lens Mar-2 6-201 8 Orgel Rachelle. [address], [address], [place], [place], [address] , [place]. tel:[phone] Referring Provider: Rachelle Colunga, [address], [place], [address] . 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 [address], [address], [place], [place], [address] , [place]. tel:[phone] Referring Provider: Rachelle Colunga, [address], [place], [address] . tel:[phone] [facility], [address] [place], [place], [facility], [place] tel:[phone] [facility] macular degeneration (chief complaint)rep orts no visual changes (chief complaint)B/P (chief complaint) Exdtve age-rel mclr degn, left eye, with actv chrdl neovasSerous detachment of retinal pigment epithelium, left eyeNexdtve age-related mclr degn, right eye, intermed dry stageDrusen (degenerative) of macula, bilateralPuckering of macula, right eyePresence of intraocular lens Orgel Rachelle. [address], [address], [place], [place], [id number] , [place]. tel:[phone] Referring Provider: Rachelle Colunga, [address], [place], [address] . tel:[phone] [facility], [address] [place], [place], [place] tel:[phone] [facility] [place] macular degeneration (chief complaint)den ies vision changes (chief complaint)BP 123/79 (chief complaint) Exdtve age-rel mclr degn, left eye, with actv chrdl neovasSerous detachment of retinal pigment epithelium, left eyeNexdtve age-related mclr degn, right eye, intermed dry stageDrusen (degenerative) of macula, bilateralPuckering of macula, right eyePresence of intraocular lens Nov- 7 Orgel Rachelle. [address], [address], [place], [place], [id number] , [place]. tel:[phone] Referring Provider: Rachelle Colunga, [address], [place], [address] . tel:[phone] [facility], [address] [place], [address], [place] tel:[phone] [facility] [place] macular degeneration (chief complaint)adrian rry vision (chief complaint)Add itional Information (chief complaint) Exdtve age-rel mclr degn, left eye, with actv chrdl neovasSerous detachment of retinal pigment epithelium, left eyeNexdtve age-related mclr degn, right eye, intermed dry stageDrusen (degenerative) of macula, bilateralPuckering of macula, right eyePresence of intraocular lens Oct-0 7 Orgel Rachelle. [address], [address], [place], [place], [address] , [place]. [phone] Referring Provider: Rachelle Colunga, [address], [place], [address] . 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 [address], [address], [place], [address] , [place]. tel:[phone] Referring Provider: Rachelle Colunga, [address] [place] [address], [address] . 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 [address], [address] [place] [address], [id number] , [place]. tel:[phone] Referring Provider: Rachelle Colunga, [address] [place] [address], [address] . 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 [address], [address], [place], [address] , [place]. tel:[phone] Referring Provider: Rachelle Orgel K, [address], [place], [address] . 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 [address], [address], [place], [place], [address] , [place]. tel:[phone] Referring Provider: Rachelle Colunga, [address], [place], [address] . tel:[phone] [facility], [address] [place], [place], [place] tel:[phone] [facility] [place] macular degeneration (chief complaint)Add itional Information (chief complaint)no changes in vision (chief complaint) Exdtve age-rel mclr degn, left eye, with actv chrdl neovasNexdtve age-related mclr degn, right eye, intermed dry stageSerous detachment of retinal pigment epithelium, left eyeDrusen (degenerative) of macula, bilateralPuckering of macula, right eyePresence of intraocular lens 7 Orgel Rachelle. [address], [address], [place], [place], [address] , [place]. tel:[phone] Referring Provider: Rachelle Colunga, [address], [place], [address] . tel:[phone] [facility], [address] [place], [place] tel:[phone] [facility] macular degeneration (chief complaint)Add itional Information (chief complaint)imp roved vision (chief complaint) Exdtve age-rel mclr degn, left eye, with actv chrdl neovasNexdtve age-related mclr degn, right eye, intermed dry stageSerous detachment of retinal pigment epithelium, left eyeDrusen (degenerative) of macula, bilateralPuckering of macula, right eyePresence of intraocular lens Orgel Rachelle. [address], [address], [place], [place], [address] , [place]. tel:[phone] Referring Provider: Rachelle Colunga, [address], [place], [address] . tel:[phone] [facility], [address] [place], [address], [place] tel:[phone] [facility] [place] macular degeneration (chief complaint)inc rease in vision (chief complaint)fla shes (chief complaint) Exdtve age-rel mclr degn, left eye, with actv chrdl neovasNexdtve age-related mclr degn, right eye, intermed dry stageSerous detachment of retinal pigment epithelium, left eyeDrusen (degenerative) of macula, bilateralPuckering of macula, right eyePresence of intraocular lens Orgel Rachelle. [address], [address], [place], [place], [address] , [place]. tel:[phone] Referring Provider: Rachelle Colunga, [address], [place], [address] . tel:[phone] [facility]ician [facility], [address] [place], [address], [place] tel:[phone] [facility] macular degeneration (chief complaint)sta ble vision (chief complaint)blo od pressure (chief complaint) Exdtve age-rel mclr degn, left eye, with actv chrdl neovasNexdtve age-related mclr degn, right eye, intermed dry stageSerous detachment of retinal pigment epithelium, left eyeDrusen (degenerative) of macula, bilateralPuckering of macula, right eyePresence of intraocular lens 7 Orgel Rachelle. [address], [address], [place], [place], [address] , . tel:[phone] Referring Provider: Rachelle Colunga, [address], [place], [address] . tel:[phone] [facility], [address] [place], [place], [place] tel:[phone] [facility] macular degeneration (chief complaint)inc rease in vision (chief complaint)sta ble vision (chief complaint) Exdtve age-rel mclr degn, left eye, with actv chrdl neovasNexdtve age-related mclr degn, right eye, intermed dry stageSerous detachment of retinal pigment epithelium, left eyeDrusen (degenerative) of macula, bilateralPuckering of macula, right eyePresence of intraocular lens 6 Orgel Rachelle. [address], [address], [place], [place], [address] , [place]. [phone] Referring Provider: Rachelle Colunga, [address], [place], [address] . tel:[phone] [facility], [address] [place], [place], tel:[phone] [facility] [place] macular degeneration (chief complaint)imp roving vision (chief complaint)___ _ (chief complaint) Exdtve age-rel mclr degn, left eye, with actv chrdl neovasNexdtve age-related mclr degn, right eye, intermed dry stageDrusen (degenerative) of macula, bilateralPuckering of macula, right eyePresence of intraocular lensSerous detachment of retinal pigment epithelium, left eye 6 Orgel Rachelle. [address], [address], [place], [place], [address] , . tel:[phone] Referring Provider: Rachelle Colunga, [address] , [place], [address] . tel:[phone] [facility], [address] [place], [address], [place] tel:[phone] [facility] [place] amd (chief complaint)imp roved vision (chief complaint)blo od pressure reading (chief complaint) Exdtve age-rel mclr degn, left eye, with actv chrdl neovasNexdtve age-related mclr degn, right eye, intermed dry stageDrusen (degenerative) of macula, bilateralPuckering of macula, right eyePresence of intraocular lensSerous detachment of retinal pigment epithelium, left eye Oct-1 0-201 6 Orgel Rachelle. [address], [address], [place], [place], [address] , . [phone] Referring Provider: Rachelle Colunga, [address], [place], [address] . tel:[phone] [facility], [address] [employer] [place], [place], [facility], [place] tel:[phone] [facility] [place] AMD (chief complaint)imp roved vision (chief complaint)no visual changes (chief complaint) Exudative age-related macular degenerationRetina l hemorrhage, left eyeSerous detachment of retinal pigment epithelium, left eyeNonexudative age-related macular degenerationDrusen (degenerative) of macula, bilateralPuckering of macula, right eyePresence of intraocular lens Sep-1 2-201 6 Orgel Rachelle. [address], [address], [place], [place], [address] , [place]. [phone] Referring Provider: Rachelle Colunga, [address], [place], [address] . tel:[phone] New Patient, Moderate [facility], [address] [place], [address], [place] tel: [phone] HUMBERTO Saleem referred by Dr. Cowan for AMD (chief complaint)alissa ck spot in center of vision (chief complaint)thao udiness in vision (chief complaint) Drusen (degenerative) of macula, bilateralPuckering of macula, right eyeExudative age-related macular degenerationNonexu dative age-related macular degenerationPresen ce of intraocular lensSerous detachment of retinal pigment epithelium, left eyeRetinal hemorrhage, left eye 6 Org Rachelle. [address] [facility] [address], [address], [place], [place], [address] , . tel: [phone] Referring Provider: Hira Quintanilla [address], [place], [address]. tel:[phone] Family History Family Member Type Diagnosis Age At Onset Problem (finding) Family history of Cance r, brain Problem (finding) Family history of malignant neoplasm of lung Problem (finding) Family history of blind ness Problem (finding) Family history of glauc maria r Problem (finding) Family history of catar act Immunizations Vaccine Date Status Comments Influenza, seasonal, injecta ble, 3 yrs or older (36 mos+) FluLaval administered Source: Other Provider Payers Payer name Insurance type Covered constitution party ID Authorjonathana corry(s) Anthem Medicare BL [id number] Social History Type Description Quantity Date Captured Comments Alcohol Use Details No Caffeine Use Details coffee 2 cups per day Tobacco Use Status Ex-cigarette smoker 021 Smoking Status Former smoker Smoking Tobacco Use Details Cigarette: Age Started: 13, Age Stopped: 60, Years Used 45 Cigarette: 20 Cigarettes per day, Pack Year: 47 Sex Male Vital Signs Date / Time: Height Weight BMI Pulse Rate Blood Pressure Temperature Respiratory Rate Body Surface Area Head Circumference Head Circ. Percentile Wt./Miguel. Percentile BMI percentile Pulse Ox Inhaled Ox 1:57 PM 131/67 mm[Hg] Chief Complaint And Reason For Visit From encounter dated '11/11/2020 13:30'. AMD (chief complaint). Description: The 79 year old male presents for AMD in the right and left eyes since last visit 1 year ago. Patient reports stable vision OU. Occasional floaters OU. It affects both near and distance vision. In addition, the condition is associated with daily activities and chores. Patient denies eye pain and flashes. Reason For Referral Reason For Referral No Information Plan Of Treatment Date Type Action Status Goal Tobacco cessation counseling completed Goal Tobacco cessation counseling completed Goal Tobacco cessation counseling completed Goal Tobacco cessation counseling completed Goal Tobacco cessation counseling completed Goal Tobacco cessation counseling completed Goal Tobacco cessation counseling completed Goal Tobacco cessation counseling completed Goal Tobacco cessation counseling completed Goal Tobacco cessation counseling completed History Of Present Illness Encounter Date Complaint History Of Prese nt Illness AMD The 79 year old male presents for AMD in the right and left eyes since last visit 1 year ago. Patient reports stable vision OU. Occasional floaters OU. It affects both near and distance vision. In addition, the condition is associated with daily activities and chores. Patient denies eye pain and flashes. macular degeneration The 78 year old male presents for macular degeneration in both eyes. stable vision The patient repo rts stable vision in both eyes since last visit 6 months ago. It occurs constantly. It affects both near and distance vision. The symptom is all of the time. In addition, the condition is associated with daily activities and chores. Patient denies flashes and floaters. macular degeneration The 78 year old male presents for evaluation of macular degeneration in both eyes. stable vision The patient repo rts stable vision in both eyes since his last visit 3 months ago. It occurs constantly. It affects both near and distance vision. The symptom is all of the time. In addition, the condition is associated with daily activities and chores. Patient denies eye pain. Patient reports a floater in the right eye x years not affecting the vision. macular degeneration followup Th e 78 year old male presents for evaluation of macular degeneration followup in both eyes. The patient reports stable vision since last exam 3 months ago. The patient denies eye pain and flashes. macular degeneration The 77 year old male presents for evaluation of macular degeneration in both eyes. The patient reports stable vision since last exam 3 months ago. It affects both near and far vision. The symptom is constant. In addition, the condition is associated with daily activity and chores. Patient denies eye pain and flashes. macular degeneration The 77 year old male presents for macular degeneration in both eyes. decreased vision The patient rep orts decreased vision in both eyes since last visit about 3 months ago. It occurs when reading. The onset was gradual. It affects near vision. In addition, the condition is associated with daily activity and chores. Patient denies flashes. Patient reports intermittent floaters in right eye. macular degeneration The 77 year old male presents for evaluation of macular degeneration in the right eye and left eye. stable vision The patient is p resent for evaluation of stable vision in both eyes since last exam about 3 months ago. It affects both near and far vision. The symptom is constant. In addition, the condition is associated with daily activity and chores. Patient denies eye pain and flashes. denies vision change The patient denies vision change in both eyes since his last exam 3 months ago. The patient denies eye pain. macular degeneration The 77 year old male presents for evaluation of macular degeneration in both eyes. reports no visual chanes The jay mally reports no visual changes in the right eye and left eye since last visit 6 weeks ago. It affects both near and far vision. The symptom is constant. The condition is stable. In addition, the condition is associated with daily activity and chores. The patient denies flashes, floaters. BP 110 BP 110/60 macular degeneration The 76 year old male presents for evaluation of macular degeneration in the right eye and left eye. improvement in spot in vision Th e patient reports an improvement in vision in the left eye. It started about 8 weeks ago . The onset was gradual. It affects near vision. The symptom is constant. The condition is improving. The condition is described as blurring. In addition, the condition is associated with daily activity and chores. 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 reports no visual changes The nika emerson reports no visual changes in the right eye since his last visit 8 weeks ago. It affects both near and far vision. The symptom is constant. The condition is stable. In addition, the condition is associated with daily activity and chores. The patient denies flashes and floaters. macular degeneration The 76 year old male presents for evaluation of macular degeneration in the right eye and left eye. Additional Information BP is 101 /69. blurry vision The patient repo rts stable blurry vision in the left > right. It started about 6 weeks ago. The onset was gradual. It affects both near and far vision. The symptom is constant. It occurs all the time. The condition is severe. The condition is described as fuzzy vision. In addition, the condition is associated with daily activity and chores. macular degeneration The 76 year old male presents for evaluation of macular degeneration in the right eye and left eye. S/P Eylea OS 01/03/17. B/P B/P: 143/69 reports no visual changes The pa idania reports no visual changes in the right eye and left eye since his last visit 5 weeks ago. It affects both near and far vision. The symptom is constant. The condition is stable. In addition, the condition is associated with daily activity and chores. The patient denies flashes, floaters. macular degeneration The 76 year old male presents for evaluation of macular degeneration in the right eye and left eye. BP 123/79 BP 123/79 denies vision changes The patien t denies vision changes in the right eye and left eye since last visit about 4 weeks ago . The onset was ongoing. It affects both near and far vision. The symptom is constant. It occurs when focusing. In addition, the condition is associated with daily activity and chores. macular degeneration The 76 year old male presents for evaluation of macular degeneration in the right eye and left eye. Additional Information Additiona l Information: BP today is 135/68. blurry vision The patient comp lains of blurry vision in the left eye. It started about 5 weeks ago. It affects both near and far vision. The symptom is constant. It occurs all the time. The condition is moderate. The condition is described as fuzzy vision. In addition, the condition is associated with daily activity and chores. macular degeneration The 76 year old male presents for evaluation of macular degeneration in the right eye and left eye. floaters The patient repo rts floaters in the left > right. It started about 1 year ago in the left eye and years in the right eye. The onset was gradual. Vision is not affected. The symptom is intermittent. The condition is mild. In addition, the condition is associated with daily activity and chores. The patient denies flashes. increase in vision The patient r eports an increase in vision in the left eye. It started about 4 weeks ago . The onset was gradual. It affects both near and far vision. The symptom is constant. The condition is improving. In addition, the condition is associated with daily activity and chores. macular degeneration The 76 year old male presents for evaluation of macular degeneration in the right eye and left eye. stable vision The patient repo rts stable vision in the right eye. It started about 5 weeks ago. It affects both near and far vision. The symptom is constant. It occurs all the time. The condition is stable. The patient denies flashes and floaters. BP 115/68 improved vision The patient repo rts improved vision in the left eye. It started about 5 weeks ago . The onset was gradual. It affects both near and far vision. The symptom is constant. The condition is improving. The condition is described as seeing floaters. The patient denies flashes, eye pain. macular degeneration The 75 year old male presents for evaluation of macular degeneration in both eyes. stable vision The patient repo rts constant stable distance and near vision in the rights. Occasional floaters. Denies flashes.BP 119/69 improved vision The patient repo rts gradual improved distance and near vision in the left eye X 1 month. Patient reports occasional flashes and floaters. macular degeneration The 75 year old male presents for evaluation of macular degeneration in both eyes. Blood Pressure Blood Pressure 1 37/75 reports vision improvement The p atient reports vision improvement in the left eye. It started about 1 month ago . The onset was gradual. It affects peripheral vision. The symptom is constant. It occurs when focusing. The condition is improving. In addition, the condition is associated with daily activity and chores. macular degeneration The 75 year old male presents for evaluation of macular degeneration in the right eye and left eye. Additional Information Patient's blood pressure is 122/65. no changes in vision Patient den ies any significant changes to vision of either eye since the last exam and treatment. macular degeneration The 75 year old male presents for evaluation of macular degeneration in the right eye and left eye. Additional Information Patient's blood pressure is 121/81 improved vision Patient feels th at there has been some improvement in vision in the left eye more so than the right eye since the last exam and treatment. macular degeneration The 75 year old male presents for evaluation of macular degeneration in the right eye and left eye. flashes The patient repo rts flashes in the left eye for monthsThe onset was sudden. Vision is not affected. The symptom is intermittent. The condition is mild. In addition, the condition is associated with evening hours. increase in vision The patient r eports of an increase in vision in the left eye. It started about 5 weeks ago . The onset was gradual. It affects both near and far vision. The symptom is constant. The condition is improving. In addition, the condition is associated with daily activity and chores. Patient reports fogginess is improving and he can see a little bit better. macular degeneration The 75 year old male presents for evaluation of macular degeneration in the right eye and left eye. blood pressure blood pressure 1 54/91 stable vision The patient note s of stable vision in both eyes since his last visit 5 weeks ago. It affects both near and far vision. The symptom is frequent. It occurs persistently. In addition, the condition is associated with daily activity and chores. The patient denies eye pain, floaters. macular degeneration The 75 year old male presents for evaluation of macular degeneration in both eyes. increase in vision The patient r eports an increase in vision in the left eye. It started about 5 weeks ago. The onset was gradual. It affects both near and far vision. The symptom is constant. The condition is improving. In addition, the condition is associated with daily activity and chores. stable vision Patient states t he vision has been stable in the right eye since his last visit 3 weeks ago that is constant in all activities. macular degeneration The 75 year old male presents for evaluation of macular degeneration in the right eye and left eye. B P 148/80 improving vision The patient rep orts improving vision in the right eye and left eye. It started about 1 month ago . The onset was gradual. It affects both near and far vision. The symptom is frequent. It occurs with no pattern. The condition is improving. The condition is described as sharper. In addition, the condition is associated with daily activity and chores. The patient denies decreased vision. macular degeneration The 75 year old male presents for evaluation of macular degeneration in the right eye and left eye. blood pressure reading blood pre ssure reading 152/78 improved vision The patient stat es of improved vision in both eyes since his last visit about 1 month ago. It affects both near and far vision. The symptom is constant. It occurs all the time. The condition is improving. In addition, the condition is associated with daily activity and chores. The patient denies eye pain, flashes. amd The 75 year old male presents for evaluation of amd in the left eye. no visual changes The patient st ates of no visual changes in the right eye. It started about 4 weeks ago. The symptom is constant. It occurs all the time. In addition, the condition is associated with daily activity and chores. The patient denies eye pain and flashes. Blood pressure reading of 132/71 improved vision The patient stat es of improved vision in the left eye. It started about 4 weeks ago. Patient states that the black spot in the left eye has improved greatly, states he can almost see through the spot now. Patient also stated that the spot is no longer black and is becoming talley/white and is able to see through it better. Patient states that the more light he has to the eye the better he can see. The symptom is constant. It occurs all the time. The condition is improving. The patient denies eye pain, flashes, floaters. AMD The 75 year old male presents for evaluation of AMD in the left eye. black spot in center of vision T he patient notes black spot in center of vision in the left eye. It started about 2 months ago. The onset was gradual. It affects both near and far vision. The symptom is constant. The condition is improving. The condition is described as blurring. In addition, the condition is associated with daily activity and chores. Patient states the black spot is now ewing. cloudiness in vision The patient reports cloudiness in vision in the right eye. It started about 6 months ago. The onset was gradual. Vision is not affected. The symptom is constant. The condition is mild. In addition, the condition is associated with daily activity and chores. The patient denies flashes and floaters. referred by Dr. Cowan for AMD Th e 75 year old male referred by Dr. Cowan for AMD in the left eye. 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, left eye Impression/Plan 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, left eye, with actv chrdl neovas Return in 3 months w agustina Colon for FU/OCT Related to Presence of intraocular lens Impression/Plan Related to Prese nce of intraocular lens Impression/Plan 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, right eye Impression/Plan 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, right eye, intermed dry stage Impression/Plan 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, left eye Impression/Plan 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, left eye, with actv chrdl neovas Impression/Plan Related to Prese nce of intraocular lens Impression/Plan 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, right eye Impression/Plan 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, right eye, intermed dry stage Impression/Plan 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, left eye Impression/Plan 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, left eye, with actv chrdl neovas Impression/Plan 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, right eye Impression/Plan 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, right eye, intermed dry stage Impression/Plan 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 Colon for follow up exam and OCT. Impression/Plan - We ll positioned intraocular lens implants were again noted on examination today. I advised the patient of the importance of regular follow up appointments with the patients referring physician for all comprehensive needs. 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 Surgical intervention is not indicated at this time. Will continue to monitor for progression. The patient was advised to call with vision changes. Related to Puckering of macula, right eye Impression/Plan - No nexudative Age Related Macular Degeneration was noted on examination today and explained to the patient. The patient was advised to monitor an Amsler grid on a daily basis and to use the antioxidant vitamins as described in the Age Related Eye Disease Study. The patient was instructed to call immediately with any grid or vision changes. 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 Because of the poor prognosis and the patient not noticing a significant change in vision, we will continue to hold off on treatment and observe closely for now. Patient was advised to call [facility] with any vision changes and to continue the use of the Amsler grid. 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 Surgical intervention is not indicated at this time. Will continue to monitor for progression. The patient was advised to call with vision changes. 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 I advised the patient of the importance of regular follow up appointments with the patients referring physician for all comprehensive needs. 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 Colon for follow up exam and OCT. Impression/Plan - No nexudative Age Related Macular Degeneration was noted on examination today and explained to the patient. The patient was advised to monitor an Amsler grid on a daily basis and to use the antioxidant vitamins as described in the Age Related Eye Disease Study. The patient was instructed to call immediately with any grid or vision changes. 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 Because of the poor prognosis and the patient not noticing a significant change in vision, we will continue to hold off on treatment and observe closely for now. Patient was advised to call [facility] with any vision changes and to continue the use of the Amsler grid. 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 The patient was advised to monitor an Amsler grid on a daily basis and to use the antioxidant vitamins as described in the Age Related Eye Disease Study. The patient was instructed to call immediately with any grid or vision changes. 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 Because of the poor prognosis and the patient not noticing a significant change in vision, we will continue to hold off on treatment and observe closely for now. Patient was advised to call [facility] with any vision changes and to continue the use of the Amsler grid. 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 Colon for follow up exam and OCT. Impression/Plan - We ll positioned intraocular lens implants were again noted on examination today. I advised the patient of the importance of regular follow up appointments with the patients referring physician for all comprehensive needs. 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 Surgical intervention is not indicated at this time. Will continue to monitor for progression. The patient was advised to call with vision changes. 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 Surgical intervention is not indicated at this time. Will continue to monitor for progression. The patient was advised to call with vision changes. 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 The patient was advised to monitor an Amsler grid on a daily basis and to use the antioxidant vitamins as described in the Age Related Eye Disease Study. The patient was instructed to call immediately with any grid or vision changes. 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 Because of the poor prognosis and the patient not noticing a significant change in vision, we will continue to hold off on treatment and observe closely for now. Patient was advised to call [facility] with any vision changes and to continue the use of the Amsler grid. 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 I advised the patient of the importance of regular follow up appointments with the patients referring physician for all comprehensive needs. 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 Colon for follow up exam and OCT. Impression/Plan - We will continue to monitor. 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 Colon for follow up exam and OCT. Impression/Plan - We ll positioned intraocular lens implants were again noted on examination today. I advised the patient of the importance of regular follow up appointments with the patients referring physician for all comprehensive needs. 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 Surgical intervention is not indicated at this time. Will continue to monitor for progression. The patient was advised to call with vision changes. 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 The patient was advised to monitor an Amsler grid on a daily basis and to use the antioxidant vitamins as described in the Age Related Eye Disease Study. The patient was instructed to call immediately with any grid or vision changes. 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 Because of the poor prognosis and the patient not noticing a significant change in vision, we will continue to hold off on treatment and observe closely for now. Patient was advised to call GUY with any vision changes and to continue the use of the Amsler grid. 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 Surgical intervention is not indicated at this time. Will continue to monitor for progression. The patient was advised to call with vision changes. 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 The patient was advised to monitor an Amsler grid on a daily basis and to use the antioxidant vitamins as described in the Age Related Eye Disease Study. The patient was instructed to call immediately with any grid or vision changes. 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 Because of the poor prognosis, we discussed the possibility of stopping anti-VEGf. Will continue to hold off on treatment and observe closely for now. The patient will return in 4-5 weeks for re-evaluation. Patient was advised to call GUY with any vision changes and to continue the use of the Amsler grid. 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 Colon for follow up exam with OCT and possible Eylea. Impression/Plan - We ll positioned intraocular lens implants were again noted on examination today. I advised the patient of the importance of regular follow up appointments with the patients referring physician for all comprehensive needs. Related to Presence of intraocular lens Feb- Impression/Plan - We will continue to monitor. 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 Because of the poor prognosis, we discussed the possibility of stopping anti-VEGf. After a lengthy discussion, the patient has agreed to hold off on treatment and observe closely for now. The patient will return in 4-5 weeks for re-evaluation. Patient was advised to call GUY with any vision changes and to continue the use of the Amsler grid. 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 Surgical intervention is not indicated at this time. Will continue to monitor for progression. The patient was advised to call with vision changes. 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 The patient was advised to monitor an Amsler grid on a daily basis and to use the antioxidant vitamins as described in the Age Related Eye Disease Study. The patient was instructed to call immediately with any grid or vision changes. 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 Colon for follow up exam with OCT and possible Eylea. Impression/Plan - We ll positioned intraocular lens implants were again noted on examination today. I advised the patient of the importance of regular follow up appointments with the patients referring physician for all comprehensive needs. Related to Presence of intraocular lens Follow up - Return i n 5-[address] Colon for follow up exam with OCT and possible Eylea. Impression/Plan - We ll positioned intraocular lens implants were again noted on examination today. I advised the patient of the importance of regular follow up appointments with the patients referring physician for all comprehensive needs. 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 Surgical intervention is not indicated at this time. Will continue to monitor for progression. The patient was advised to call with vision changes. 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 The patient was advised to monitor an Amsler grid on a daily basis and to use the antioxidant vitamins as described in the Age Related Eye Disease Study. The patient was instructed to call immediately with any grid or vision changes. 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 The risks, benefits, and alternatives were reviewed. The patient wishes to continue and received an intravitreal injection of Eylea today. We will slowly increase dosing intervals to 5-6 weeks. If fluid continues to persistent at next visit we may consider stopping treatment due to poor response to anti-VEGf. The patient tolerated the procedure well and has been instructed to call immediately with the onset of severe pain or visual loss. The patient will continue following an Amsler grid daily and the use of the Age Related Eye Disease Study vitamins. 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 The patient was advised to monitor an Amsler grid on a daily basis and to use the antioxidant vitamins as described in the Age Related Eye Disease Study. The patient was instructed to call immediately with any grid or vision changes. 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 The risks, benefits, and alternatives were reviewed. The patient wishes to continue and received an intravitreal injection of Eylea today. We will maintain dosing intervals at 4-5 weeks. The patient tolerated the procedure well and has been instructed to call immediately with the onset of severe pain or visual loss. The patient was strongly advised on the importance of keeping up with current treatment schedule. The patient will continue following an Amsler grid daily and the use of the Age Related Eye Disease Study vitamins. 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 Colon for follow up exam with OCT and possible Eylea OS. Impression/Plan - We ll positioned intraocular lens implants were again noted on examination today. I advised the patient of the importance of regular follow up appointments with the patients referring physician for all comprehensive needs. 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 Surgical intervention is not indicated at this time. Will continue to monitor for progression. The patient was advised to call with vision changes. 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 Surgical intervention is not indicated at this time. Will continue to monitor for progression. The patient was advised to call with vision changes. 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 The patient was advised to monitor an Amsler grid on a daily basis and to use the antioxidant vitamins as described in the Age Related Eye Disease Study. The patient was instructed to call immediately with any grid or vision changes. 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 The risks, benefits, and alternatives were reviewed. The patient wishes to continue and received an intravitreal injection of Eylea today. We will maintain dosing intervals at 4-5 weeks. The patient tolerated the procedure well and has been instructed to call immediately with the onset of severe pain or visual loss. The patient was strongly advised on the importance of keeping up with current treatment schedule. The patient will continue following an Amsler grid daily and the use of the Age Related Eye Disease Study vitamins. 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 I advised the patient of the importance of regular follow up appointments with the patients referring physician for all comprehensive needs. 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 Colon for , follow up exam with OCT and possible Eylea OS. Impression/Plan - We ll positioned intraocular lens implants were again noted on examination today. I advised the patient of the importance of regular follow up appointments with the patients referring physician for all comprehensive needs. Related to Presence of intraocular lens Impression/Plan - We will continue to monitor. 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 The patient was advised to monitor an Amsler grid on a daily basis and to use the antioxidant vitamins as described in the Age Related Eye Disease Study. The patient was instructed to call immediately with any grid or vision changes. 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 The risks, benefits, and alternatives were reviewed. The patient wishes to continue and received an intravitreal injection of Eylea today. We will maintain dosing intervals at 4-5 weeks. The patient tolerated the procedure well and has been instructed to call immediately with the onset of severe pain or visual loss. The patient was strongly advised on the importance of keeping up with current treatment schedule. The patient will continue following an Amsler grid daily and the use of the Age Related Eye Disease Study vitamins. 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 Colon for follow up exam with OCT and possible Eylea OS. 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 Surgical intervention is not indicated at this time. Will continue to monitor for progression. The patient was advised to call with vision changes. 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 The patient was advised to monitor an Amsler grid on a daily basis and to use the antioxidant vitamins as described in the Age Related Eye Disease Study. The patient was instructed to call immediately with any grid or vision changes. 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 Colon for follow up exam with OCT and possible Eylea. Impression/Plan - We ll positioned intraocular lens implants were again noted on examination today. I advised the patient of the importance of regular follow up appointments with the patients referring physician for all comprehensive needs. 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 Surgical intervention is not indicated at this time. Will continue to monitor for progression. The patient was advised to call with vision changes. 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 The risks, benefits, and alternatives were reviewed. The patient wishes to continue and received an intravitreal injection of Eylea today. We will maintain dosing intervals at 4-5 weeks due to persistent fluid. The patient tolerated the procedure well and has been instructed to call immediately with the onset of severe pain or visual loss. The patient was strongly advised on the importance of keeping up with current treatment schedule. The patient will continue following an Amsler grid daily and the use of the Age Related Eye Disease Study vitamins. 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 Colon for follow up exam with OCT and possible Eylea OS. Exdtve age-rel mclr degn, left eye, with actv chrdl neovas - Use of grid discussed. 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 I advised the patient of the importance of regular follow up appointments with the patients referring physician for all comprehensive needs. 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 Surgical intervention is not indicated at this time. Will continue to monitor for progression. The patient was advised to call with vision changes. 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 The risks, benefits, and alternatives were reviewed. The patient wishes to continue and received an intravitreal injection of Eylea today. We will maintain dosing intervals at 4-5 weeks due to persistent fluid. The patient tolerated the procedure well and has been instructed to call immediately with the onset of severe pain or visual loss. The patient was strongly advised on the importance of keeping up with current treatment schedule. The patient will continue following an Amsler grid daily and the use of the Age Related Eye Disease Study vitamins. 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 Because of the high risk of progression to Exudative ARMD, an exam of this eye was performed today. The patient was advised to monitor an Amsler grid on a daily basis and to use the antioxidant vitamins as described in the Age Related Eye Disease Study. The patient was instructed to call immediately with any grid or vision changes. 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 Colon for follow up, OCT, and possible EYL OS. 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 I advised the patient of the importance of regular follow up appointments with the patients referring physician for all comprehensive needs. 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 Surgical intervention is not indicated at this time. Will continue to monitor for progression. The patient was advised to call with vision changes. 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 The risks, benefits, and alternatives were reviewed. The patient wishes to continue and received an intravitreal injection of Eylea today. We switched from Avastin to Eylea due to persistent fluid. The patient tolerated the procedure well and has been instructed to call immediately with the onset of severe pain or visual loss. The patient was strongly advised on the importance of keeping up with current treatment schedule. The patient will continue following an Amsler grid daily and the use of the Age Related Eye Disease Study vitamins. Continue with q 4-5 week interval at this time. 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 Because of the high risk of progression to Exudative ARMD, an exam of this eye was performed today. The patient was advised to monitor an Amsler grid on a daily basis and to use the antioxidant vitamins as described in the Age Related Eye Disease Study. The patient was instructed to call immediately with any grid or vision changes. 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 The risks, benefits, and alternatives were reviewed. The patient wishes to continue and received an intravitreal injection of Eylea today. We switched from Avastin to Eylea due to persistent fluid. The patient tolerated the procedure well and has been instructed to call immediately with the onset of severe pain or visual loss. The patient was strongly advised on the importance of keeping up with current treatment schedule. The patient will continue following an Amsler grid daily and the use of the Age Related Eye Disease Study vitamins. Eylea program signed today. 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 Surgical intervention is not indicated at this time. Will continue to monitor for progression. The patient was advised to call with vision changes. 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 Colon for follow up exam with OCT and possible Eylea OS. Impression/Plan - No nexudative Age Related Macular Degeneration was noted on examination today and explained to the patient. Because of the high risk of progression to Exudative ARMD, an exam of this eye was performed today. The patient was advised to monitor an Amsler grid on a daily basis and to use the antioxidant vitamins as described in the Age Related Eye Disease Study. The patient was instructed to call immediately with any grid or vision changes. 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 I advised the patient of the importance of regular follow up appointments with the patients referring physician for all comprehensive needs. Related to Presence of intraocular lens Impression/Plan - We will continue to monitor. 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 Because of the high risk of progression to Exudative ARMD, an exam of this eye was performed today. The patient was advised to monitor an Amsler grid on a daily basis and to use the antioxidant vitamins as described in the Age Related Eye Disease Study. The patient was instructed to call immediately with any grid or vision changes. 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 The risks, benefits, and alternatives were reviewed. The patient wishes to continue and received an intravitreal injection of Avastin today. We will maintain dosing intervals at 4-5 weeks initially. The patient tolerated the procedure well and has been instructed to call immediately with the onset of severe pain or visual loss. The patient was strongly advised on the importance of keeping up with current treatment schedule. The patient will continue following an Amsler grid daily and the use of the Age Related Eye Disease Study vitamins. 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 Colon for follow up exam with OCT and possible Avastin or Eylea OS. Impression/Plan - We ll positioned intraocular lens implants were again noted on examination today. I advised the patient of the importance of regular follow up appointments with the patients referring physician for all comprehensive needs. 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 Surgical intervention is not indicated at this time. Will continue to monitor for progression. The patient was advised to call with vision changes. 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 Colon for follow up exam with OCT and possible Avastin OS. 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 The goal of a treat and extend regimen was explained and will be implemented as long as good treatment response and resolution of subretinal blood and subretinal fluid and/or subRPE fluid is observed. The off-label status of Avastin and use of a compounding pharmacy were discussed. The patient chose to continue and received an intravitreal injection of Avastin today. The patient tolerated the procedure well and has been instructed to call immediately with the onset of severe pain, non-watery discharge or visual loss. The patient will continue following an Amsler grid daily and the use of the Age Related Eye Disease Study vitamins. Appropriate follow up with primary eye vision care associate was recommended. The patient should call with any concerns or change in symptoms. 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 The patient was advised to monitor an Amsler grid on a daily basis and to use the antioxidant vitamins as described in the Age Related Eye Disease Study. They were instructed to report any grid or vision changes immediately. Risk of transition to Exudative AMD was discussed. 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 Colon for follow up exam with OCT and possible Avastin OS. 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 I advised the patient of the importance of regular follow up appointments with the patients referring physician for all comprehensive needs. Related to Presence of intraocular lens Feb- Impression/Plan - Ma cular Pucker was noted on examination today and explained to the patient. Surgical intervention is not indicated at this time. Will continue to monitor for progression. The patient was advised to call with vision changes. 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 Colon for follow up exam with OCT and possible Avastin OS. Exudative age-relate d macular degeneration - Use of grid discussed. Related to Exudative age-related macular degeneration Impression/Plan - Ma cular Pucker was again noted on examination today and explained to the patient. Surgical intervention is not indicated at this time. Will continue to monitor for progression. The patient was advised to call with vision changes. 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 I advised the patient of the importance of regular follow up appointments with the patients referring physician for all comprehensive needs. Related to Presence of intraocular lens Impression/Plan - No nexudative Age Related Macular Degeneration was again noted on examination today and explained to the patient. The patient was advised to monitor an Amsler grid on a daily basis and to use the antioxidant vitamins as described in the Age Related Eye Disease Study. The patient was instructed to call immediately with any grid or vision changes. Related to Nonexudative age-related macular degeneration Impression/Plan - We will continue to monitor. 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 We will continue to monitor. Related to Retinal hemorrhage, left eye Impression/Plan - Ba sed on today's exam findings and interpretation of testing, continued antiVEGF treatment for Exudative Age Related Macular Degeneration was again recommended and discussed with the patient. The risks, benefits, and alternatives were reviewed. The patient wishes to continue and received an intravitreal injection of Avastin today. The patient tolerated the procedure well and has been instructed to call immediately with the onset of severe pain or visual loss. The patient was strongly advised on the importance of keeping up with current treatment schedule. The patient will continue following an Amsler grid daily and the use of the Age Related Eye Disease Study vitamins. Related to Exudative age-related macular degeneration - Based on today's e xam and interpretation of testing, initial antiVEGF treatment for Exudative Age Related Macular Degeneration was recommended and explained to the patient. The risks, benefits, and alternatives were discussed. The goal of a treat and extend regimen was explained and will be implemented as long as good treatment response and regressing exam findings allow. The off-label status of Avastin and use of a compounding pharmacy was discussed. The patient wishes to proceed and received an intravitreal injection of Avastin today. The patient tolerated the procedure well and has been instructed to call immediately with the onset of severe pain or visual loss. The need for ongoing treatment will be determined at future visits. The patient was instructed to start using the antioxidant vitamins as described in the Age Related Eye Disease Study and to follow an Amsler grid daily. Informational brochure, AREDS sample and amsler provided today. Related to Exudative age-related macular degeneration - Well positioned in traocular lens implants were noted on examination today. I advised the patient of the importance of regular follow up appointments with the patients referring physician for all comprehensive needs. Related to Presence of intraocular lens - Macular Pucker was noted on examination today and explained to the patient. Surgical intervention is not indicated at this time. Will continue to monitor for progression. The patient was advised to call with vision changes. 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 R elated to Drusen (degenerative) of macula, bilateral Exudative age-relate d macular degeneration - Use of grid discussed. Related to Exudative age-related macular degeneration - Nonexudative Age R elated Macular Degeneration was noted on examination today and explained to the patient. The patient was advised to monitor an Amsler grid on a daily basis and to use the antioxidant vitamins as described in the Age Related Eye Disease Study. The patient was instructed to call immediately with any grid or vision changes. Informational brochure, AREDS sample and amsler provided today. Related to Nonexudative age-related macular degeneration - Associated with TYLER GARZON. We will continue to monitor. Related to Retinal hemorrhage, left eye - We will continue to monitor. R elated to Serous detachment of retinal pigment epithelium, left eye - Return in [address] Colon for follow up exam with OCT and possible INJ-Avastin OS. Related to Exudative age-related macular degeneration Assessments Type Assessment Date assessment Exudative age-rel mclr degn, lef t eye, with inactive scar impression Exudative age-rel mc lr degn, left eye, with inactive scar: H35.3223. Conditions: severe, chronic, stable assessment Nexdtve age-related mclr degn, r ight eye, intermed dry stage impression Nexdtve age-related mclr degn, right eye, intermed dry stage: H35.3112. OD. Condition: chronic, moderate, stable assessment Vitreous degeneration, bilateral impression Vitreous degeneration, bilateral : H43.813. Conditions: stable assessment Presence of intraocular lens Nov impression Diagnosis: Presence of intraocular lens. Code: Z96.1. Side: OU. Condition: established, stable Patient Care Teams Name Effective Dates (start - stop) Status Members No Information
[2024-10-09 21:27] VITALS: BP 139/93; PULSE 94; TEMP 36.4; O2SAT 97
--- NOTE | 2024-10-09 21:28 | CT_ITS ---
[facility] [place] [id number] Patient Name: MICHAEL LITTLE MRN: [id number] date: 1940 Sex: M Assigned Patient Location: ED.MAIN Current Patient Location: ED.MAIN Accession/Order Number: [id number] Exam Date: 10/09/2024 22:15 Report Date: 10/09/2024 22:27 At the request of: COLLETTE ARMANDO Procedure: CT cervical spine wo con CT Cervical Spine withoutcontrast TECHNIQUE: Axial imaging with 2-D and 3-D reconstruction. The CT exam was performed using one or more the following dose reduction techniques: Automated exposure control, adjustment of the MA and/or Kv according to patient size, or use of the iterative reconstruction technique. COMPARISON: None HISTORY: Neck pain with radiation into the shoulders POST SURGERY CHANGES: None BONY ALIGNMENT: Adequate BONY SPINAL CANAL: Patent central bony canal FRACTURE: None BONY LESIONS: None SOFT TISSUES: Unremarkable DEGENERATIVE CHANGES: Extensive C5-6 and C6-7 disc space narrowing and endplate spurring. Extensive multilevel facet degeneration. Moderate C5-6 and C6-7 bilateral bony neural foraminal narrowing. 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 Impression dictated by: Charles Thomason M.D. 10/09/2024 10:27 PM Dictation Location: [place] [address] Electronically authenticated by: [id number] Y Date: 10/09/2024 22:27
--- NOTE | 2024-10-09 21:29 | ED_ITS ---
Documented by User: Isabel Allen 10/09/24 21:47 HPI HPI - Neck Pain/Injury General Chief Complaint: Neck Pain/Injury Stated Complaint: NECK PAIN Time Seen by Provider: 10/09/24 21:28 History of Present Illness HPI Narrative: 83 year old male presents to the ED for neck pain, muscle spasms. Onset was 10/07/24 upon waking. Denies injury, fever, chills, weakness, N/T. The pain is worse with movement and palpation. he took Tylenol earlier today without relief. He is accompanied by his son for a ride home. Related Data Home Medications ?Medication ?Instructions ?Recorded ?Confirmed albuterol sulfate 90 mcg/actuation 1 puff inhalation Q 4H PRN 01/14/23 10/09/24 aerosol inhaler shortness of breath or wheez ing budesonide 160 mcg-glycopyr 9 2 inh inhalation BID 12/2910/09/24 mcg-formot 4.8 mcg/actuation HFA inhaler (Breztri Aerosphere) levothyroxine 50 mcg tablet 50 mcg PO DAILY 01/14/23 0 10/09/24 prednisone 5 mg tablet 5 mg PO DAILY 01/14/2310/09 tamsulosin 0.4 mg capsule 0.4 mg PO BID 01/14/2310/09 vit C 250 mg-vit E 90 mg-zinc 40 1 tab PO BID 01/14/23 10/09/24 mg-copper 1 [id number]-[id number] capsule (PreserVision AREDS-2) pantoprazole 40 mg tablet,delayed 40 mg PO DAILY 07/2710/09/24 release hydroxyzine HCl 25 mg tablet 25 mg PO DAILY 08/10/24 0 10/09/24 Previous Rx's ?Medication ?Instructions ?Recorded gabapentin 100 mg capsule 100 mg PO DAILY #90 caps 08/30 Allergies Allergy/AdvReac Type Severity Reaction Status Date / Time No Known Drug Allergies Allergy Verified 09/03/24 15:04 Opioid HPI Opioid Management Most Recent Opioid Data: Last Pain Scale 8 Today, 22:14 Last Pain Intensity 4 08/12/24, 10:30 Last MAR Pain Assessment Today, 21:40 Last ORT Total Score 0 08/10/24, 11:54 Last ORT Risk Category Low Risk 08/10/24, 11:54 Review of Systems ROS Constitutional Denies: fever or chills Ears, nose, mouth, and throat Reports: neck pain; Denies: throat pain Cardiovascular Denies: chest pain Respiratory Denies: shortness of breath Gastrointestinal Denies: abdominal pain, nausea or vomiting Musculoskeletal Reports: neck pain; Denies: back pain or extremity pain Integumentary/Breast Denies: rash Neurological Denies: headache, numbness in extremities, weakness in extremities or dizziness [facility] Medical History (Updated 10/09/24 @ 22:43 by Rosamaria Redman MD) Shoulder pain ?M25.519 - Pain in unspecified shoulder (ICD-10) Arthritis ?M19.90 - Unspecified osteoarthritis, unspecified site (ICD-10) Dyspnea on exertion ?R06.09 - Other forms of dyspnea (ICD-10) Hypothyroidism ?E03.9 - Hypothyroidism, unspecified (ICD-10) History of brachytherapy ?Z92.3 - Personal history of irradiation (ICD-10) Ruptured spleen ?S36.09XA - Other injury of spleen, initial encounter (ICD-10) Macular degeneration ?H35.30 - Unspecified macular degeneration (ICD-10) Cataract ?H26.9 - Unspecified cataract (ICD-10) Dry mouth ?R68.2 - Dry mouth, unspecified (ICD-10) Pulmonary hypertension ?I27.20 - Pulmonary hypertension, unspecified (ICD-10) On home oxygen therapy ?Z99.81 - Dependence on supplemental oxygen (ICD-10) Hypothyroidism (acquired) ?E03.9 - Hypothyroidism, unspecified (ICD-10) Esophagitis ?K20.90 - Esophagitis, unspecified without bleeding (ICD-10) Gastritis ?K29.70 - Gastritis, unspecified, without bleeding (ICD-10) BPH with obstruction/lower urinary tract symptoms ?N40.1 - Benign prostatic hyperplasia with lower urinary tract symptoms (ICD- 10) ?N13.8 - Other obstructive and reflux uropathy (ICD-10) Abnormal EKG ?R94.31 - Abnormal electrocardiogram [ECG] [EKG] (ICD-10) COVID-19 ?U07.1 - COVID-19 (ICD-10) Prostate cancer ?C61 - Malignant neoplasm of prostate (ICD-10) Pruritus ?L29.9 - Pruritus, unspecified (ICD-10) GERD (gastroesophageal reflux disease) ?K21.9 - Gastro-esophageal reflux disease without esophagitis (ICD-10) Emphysema lung ?J43.9 - Emphysema, unspecified (ICD-10) COPD (chronic obstructive pulmonary disease) ?J44.9 - Chronic obstructive pulmonary disease, unspecified (ICD-10) Back pain ?M54.9 - Dorsalgia, unspecified (ICD-10) Spinal stenosis ?M48.00 - Spinal stenosis, site unspecified (ICD-10) Surgical History (Updated 07/27/24 @ 13:19 by Jessie Altamirano NP) H/O abdominal surgery ?Z98.890 - Other specified postprocedural states (ICD-10) History of spinal surgery (1981) ?Z98.890 - Other specified postprocedural states (ICD-10) S/P cataract extraction and insertion of intraocular lens ?Z98.49 - Cataract extraction status, unspecified eye (ICD-10) ?Z96.1 - Presence of intraocular lens (ICD-10) S/P epidural steroid injection ?Z92.241 - Personal history of systemic steroid therapy (ICD-10) History of open reduction and internal fixation (ORIF) procedure (~1984) ?Z98.890 - Other specified postprocedural states (ICD-10) History of hernia repair ?Z98.890 - Other specified postprocedural states (ICD-10) ?Z87.19 - Personal history of other diseases of the digestive system (ICD-10) H/O colonoscopy ?Z98.890 - Other specified postprocedural states (ICD-10) Family History (Updated 07/27/24 @ 13:04 by Jessie Altamirano NP) Other Family history of diabetes mellitus Family history of lung cancer Family history of myocardial infarction Social History (Updated 07/27/24 @ 12:53 by Jessie Altamirano NP) Within the past year, how often did you have a drink containing alcohol: never Score interpretation: A score less than 4 is consistent with normal alcohol consumption. Smoking status: Former smoker Non-prescribed substance use: denies use Highest level of school completed/degree received: 7th grade Little interest or pleasure in doing things: not at all Feeling down, depressed, or hopeless: not at all Exam Constitutional Vital Signs, click to edit/add: Last Vital Signs Temp 97.6 F 10/09/24 21:27 Pulse 94 H 10/09/24 21:27 Resp 20 10/09/24 21:27 BP 139/93 H 10/09/24 21:27 Pulse Ox 97 10/09/24 21:27 O2 Del Method Room Air 10/09/24 21:27 Common normals: oriented x3 General appearance: cooperative and in distress; not ill appearing and not diaphoretic HENMT Common normals: moist oral mucous membranes Eye Common normals: conjunctivae normal and no scleral icterus Neck & C-Spine Cervical spine: cervical spine tenderness, paracervical muscle tenderness and paracervical muscle spasm Chest Chest: symmetrical chest wall rise Respiratory Common normals: normal respiratory effort Effort & inspection: able to speak in complete sentences and symmetric chest movement Cardio Common normals: regular rate Neuro Common normals: oriented x3, CN's II-XII intact bilaterally, moves all extremities and no focal motor deficits Sensorium/orientation: awake and alert Speech: speech normal Course Vital Signs Vital signs: Vital Signs Temperature 97.6 F 10/09/24 21:27 Pulse Rate 94 H 10/09/24 21:27 Respiratory Rate 20 10/09/24 21:27 Blood Pressure 139/93 H 10/09/24 21:27 Pulse Oximetry 97 10/09/24 21:27 Oxygen Delivery Method Room Air 10/09/24 21:27 Temperature 97.6 F 10/09/24 21:27 Pulse Rate 94 H 10/09/24 21:27 Respiratory Rate 20 10/09/24 21:27 Blood Pressure 139/93 H 10/09/24 21:27 Pulse Oximetry 97 10/09/24 21:27 Oxygen Delivery Method Room Air 10/09/24 21:27 MDM - Neck Pain/Injury MDM Narrative Medical decision making narrative: CT scan was ordered and was pending. The patient was medicated with Decadron, Norflex, and Goodrich here in the ED. Care was resumed to Dr. Redman. See her dictation for further evaluation and treatment. Differential Diagnosis Differential diagnosis: Likely disc disorder of cervical region, cervical radiculopathy, torticollis and strain of neck muscle Medical Records Attestation: I reviewed the patient's medical records. 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 Impression dictated by: Charles Thomason M.D. 10/09/2024 10:27 PM Dictation Location: [place] [address] Electronically authenticated by: [id number] Y Date: 10/09/2024 22:27 Discharge Plan Discharge Chief Complaint: Neck Pain/Injury Clinical Impression: Neck pain, Muscle spasms of neck Patient Disposition: Home, Self-Care Time of Disposition Decision: 22:42 Condition: Good Prescriptions / Home Meds: No Action albuterol sulfate 90 mcg/actuation HFA aerosol inhaler 1 puff INHALATION Q4H PRN (Reason: shortness of breath or wheezing) PreserVision AREDS-2 250-90-40-1 mg capsule 1 tab PO BID tamsulosin 0.4 mg capsule 0.4 mg PO BID levothyroxine 50 mcg tablet 50 mcg PO DAILY prednisone 5 mg tablet 5 mg PO DAILY Breztri Aerosphere 160-9-4.8 mcg/actuation HFA aerosol inhaler 2 inh inhalation BID pantoprazole 40 mg tablet,delayed release (DR/EC) 40 mg PO DAILY hydroxyzine HCl 25 mg tablet 25 mg PO DAILY gabapentin 100 mg capsule 100 mg PO DAILY Qty: 90 0RF Print Language: Micronesian Instructions: Muscle Spasm (ED), Acute Neck Pain (ED) Referrals: Blayne Marion MD [Primary Care Provider, Family Practice] - 1 week Documented by User: Rosamaria Redman MD 10/09/24 22:49 HPI HPI - Neck Pain/Injury General Chief Complaint: Neck Pain/Injury Stated Complaint: NECK PAIN Time Seen by Provider: 10/09/24 21:28 Related Data Home Medications ?Medication ?Instructions ?Recorded ?Confirmed albuterol sulfate 90 mcg/actuation 1 puff inhalation Q 4H PRN 01/14/23 10/09/24 aerosol inhaler shortness of breath or wheez ing budesonide 160 mcg-glycopyr 9 2 inh inhalation BID 12/2910/09/24 mcg-formot 4.8 mcg/actuation HFA inhaler (Breztri Aerosphere) levothyroxine 50 mcg tablet 50 mcg PO DAILY 01/14/23 0 10/09/24 prednisone 5 mg tablet 5 mg PO DAILY 01/14/2310/09 tamsulosin 0.4 mg capsule 0.4 mg PO BID 01/14/2310/09 vit C 250 mg-vit E 90 mg-zinc 40 1 tab PO BID 01/14/23 10/09/24 mg-copper 1 [id number] capsule (PreserVision AREDS-2) pantoprazole 40 mg tablet,delayed 40 mg PO DAILY 07/2710/09/24 release hydroxyzine HCl 25 mg tablet 25 mg PO DAILY 08/10/24 0 10/09/24 Previous Rx's ?Medication ?Instructions ?Recorded gabapentin 100 mg capsule 100 mg PO DAILY #90 caps 08/30 Allergies Allergy/AdvReac Type Severity Reaction Status Date / Time No Known Drug Allergies Allergy Verified 09/03/24 15:04 Opioid HPI Opioid Management Most Recent Opioid Data: Last Pain Scale 8 Today, 22:14 Last Pain Intensity 4 08/12/24, 10:30 Last MAR Pain Assessment Today, 21:40 Last ORT Total Score 0 08/10/24, 11:54 Last ORT Risk Category Low Risk 08/10/24, 11:54 [facility] Medical History (Updated 10/09/24 @ 22:43 by Rosamaria Redman MD) Shoulder pain ?M25.519 - Pain in unspecified shoulder (ICD-10) Arthritis ?M19.90 - Unspecified osteoarthritis, unspecified site (ICD-10) Dyspnea on exertion ?R06.09 - Other forms of dyspnea (ICD-10) Hypothyroidism ?E03.9 - Hypothyroidism, unspecified (ICD-10) History of brachytherapy ?Z92.3 - Personal history of irradiation (ICD-10) Ruptured spleen ?S36.09XA - Other injury of spleen, initial encounter (ICD-10) Macular degeneration ?H35.30 - Unspecified macular degeneration (ICD-10) Cataract ?H26.9 - Unspecified cataract (ICD-10) Dry mouth ?R68.2 - Dry mouth, unspecified (ICD-10) Pulmonary hypertension ?I27.20 - Pulmonary hypertension, unspecified (ICD-10) On home oxygen therapy ?Z99.81 - Dependence on supplemental oxygen (ICD-10) Hypothyroidism (acquired) ?E03.9 - Hypothyroidism, unspecified (ICD-10) Esophagitis ?K20.90 - Esophagitis, unspecified without bleeding (ICD-10) Gastritis ?K29.70 - Gastritis, unspecified, without bleeding (ICD-10) BPH with obstruction/lower urinary tract symptoms ?N40.1 - Benign prostatic hyperplasia with lower urinary tract symptoms (ICD- 10) ?N13.8 - Other obstructive and reflux uropathy (ICD-10) Abnormal EKG ?R94.31 - Abnormal electrocardiogram [ECG] [EKG] (ICD-10) COVID-19 ?U07.1 - COVID-19 (ICD-10) Prostate cancer ?C61 - Malignant neoplasm of prostate (ICD-10) Pruritus ?L29.9 - Pruritus, unspecified (ICD-10) GERD (gastroesophageal reflux disease) ?K21.9 - Gastro-esophageal reflux disease without esophagitis (ICD-10) Emphysema lung ?J43.9 - Emphysema, unspecified (ICD-10) COPD (chronic obstructive pulmonary disease) ?J44.9 - Chronic obstructive pulmonary disease, unspecified (ICD-10) Back pain ?M54.9 - Dorsalgia, unspecified (ICD-10) Spinal stenosis ?M48.00 - Spinal stenosis, site unspecified (ICD-10) Surgical History (Updated 07/27/24 @ 13:19 by Jessie Altamirano NP) H/O abdominal surgery ?Z98.890 - Other specified postprocedural states (ICD-10) History of spinal surgery (1981) ?Z98.890 - Other specified postprocedural states (ICD-10) S/P cataract extraction and insertion of intraocular lens ?Z98.49 - Cataract extraction status, unspecified eye (ICD-10) ?Z96.1 - Presence of intraocular lens (ICD-10) S/P epidural steroid injection ?Z92.241 - Personal history of systemic steroid therapy (ICD-10) History of open reduction and internal fixation (ORIF) procedure (~1984) ?Z98.890 - Other specified postprocedural states (ICD-10) History of hernia repair ?Z98.890 - Other specified postprocedural states (ICD-10) ?Z87.19 - Personal history of other diseases of the digestive system (ICD-10) H/O colonoscopy ?Z98.890 - Other specified postprocedural states (ICD-10) Family History (Updated 07/27/24 @ 13:04 by Jessie Altamirano NP) Other Family history of diabetes mellitus Family history of lung cancer Family history of myocardial infarction Social History (Updated 07/27/24 @ 12:53 by Jessie Altamirano NP) Within the past year, how often did you have a drink containing alcohol: never Score interpretation: A score less than 4 is consistent with normal alcohol consumption. Smoking status: Former smoker Non-prescribed substance use: denies use Highest level of school completed/degree received: 7th grade Little interest or pleasure in doing things: not at all Feeling down, depressed, or hopeless: not at all Exam Constitutional Vital Signs, click to edit/add: Last Vital Signs Temp 97.6 F 10/09/24 21:27 Pulse 94 H 10/09/24 21:27 Resp 20 10/09/24 21:27 BP 139/93 H 10/09/24 21:27 Pulse Ox 97 10/09/24 21:27 O2 Del Method Room Air 10/09/24 21:27 Course Vital Signs Vital signs: Vital Signs Temperature 97.6 F 10/09/24 21:27 Pulse Rate 94 H 10/09/24 21:27 Respiratory Rate 20 10/09/24 21:27 Blood Pressure 139/93 H 10/09/24 21:27 Pulse Oximetry 97 10/09/24 21:27 Oxygen Delivery Method Room Air 10/09/24 21:27 Temperature 97.6 F 10/09/24 21:27 Pulse Rate 94 H 10/09/24 21:27 Respiratory Rate 20 10/09/24 21:27 Blood Pressure 139/93 H 10/09/24 21:27 Pulse Oximetry 97 10/09/24 21:27 Oxygen Delivery Method Room Air 10/09/24 21:27 MDM - Neck Pain/Injury MDM Narrative Medical decision making narrative: CT scan was ordered and was pending. The patient was medicated with Decadron, Norflex, and Goodrich here in the ED. Care was resumed to Dr. Redman. See her dictation for further evaluation and treatment. This patient was seen and evaluated in conjunction with the midlevel provider. Please refer to her H&P. He was seen and evaluated and is uncomfortable due to neck pain and spasms. He does not have any focal weakness numbness or tingling. He did recently have back surgery with Dr. Saint Hadley in [facility]. He took Percocet at that time. I did review his OARRS report. He gets gabapentin prescriptions and had 28 Percocet after his back surgery. In the emergency department despite Decadron, Goodrich and Norflex he was moaning in pain. He was able to tolerate a CT scan. After coming back from CT scan he was given 4 mg of IM morphine and oral Zofran. His CT scan shows degenerative changes in the neck specifically at C5-C6 and C6-C7 but no acute fractures or spinal cord impingement noted. The results of the CT scan were discussed with the patient and his son. He was given a copy. He will be referred back to Dr. Saint Hadley for further evaluation and treatment. He will be discharged home with 2 Percocet for home use and a prescription for Percocet, Norflex and Colace was given to him at the time of discharge. 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 Impression dictated by: Charles Thomason M.D. 10/09/2024 10:27 PM Dictation Location: [email or web address] Electronically authenticated by: [id number] Y Date: 10/09/2024 22:27 Discharge Plan Discharge Chief Complaint: Neck Pain/Injury Clinical Impression: Neck pain, Muscle spasms of neck Patient Disposition: Home, Self-Care Time of Disposition Decision: 22:42 Condition: Good Prescriptions / Home Meds: No Action albuterol sulfate 90 mcg/actuation HFA aerosol inhaler 1 puff INHALATION Q4H PRN (Reason: shortness of breath or wheezing) PreserVision AREDS-2 250-90-40-1 mg capsule 1 tab PO BID tamsulosin 0.4 mg capsule 0.4 mg PO BID levothyroxine 50 mcg tablet 50 mcg PO DAILY prednisone 5 mg tablet 5 mg PO DAILY Breztri Aerosphere 160-9-4.8 mcg/actuation HFA aerosol inhaler 2 inh inhalation BID pantoprazole 40 mg tablet,delayed release (DR/EC) 40 mg PO DAILY hydroxyzine HCl 25 mg tablet 25 mg PO DAILY gabapentin 100 mg capsule 100 mg PO DAILY Qty: 90 0RF Print Language: Micronesian Instructions: Muscle Spasm (ED), Acute Neck Pain (ED) Referrals: Blayne Marion MD [Primary Care Provider, Family Practice] - 1 week
--- OUTSIDE RECORDS SUMMARY | 2024-10-09 21:29 | XMS_ITS | Encounter Summary ---
Author Organization [facility] [employer] Address [id number] [address] [place] [address] Care Team Providers Care Boxcar Weigher Name Role Phone Marzena Fong BUNCHER HAND-GROUP CHIEF OPERATOR Primary Care Provider Encounter Details Date Type Department Care Team (Late st Contact Info) Description 09/13/2024 Telephone [facility] [address] [place] [phone] Shanti Liu, RN Social History Tobacco Use Types Packs/Day Years Used Date Smoking Tobacco: Former Smokeless Tobacco: Never Alcohol Use Standard Drinks/Week Comments No 0 (1 standard drink = 0.6 oz pur e alcohol) [facility] Utilities Answer Date Recorded In the past 12 months has e electric, gas, oil, or water company threatened to shut off services in your home? No 08/09/2023 PRAPARE - Transportation Answer Date Re corded In the past 12 months, has l ack of transportation kept you from medical appointments or from getting medications? No 06/2023 In the past 12 months, has l ack of transportation kept you from meetings, work, or from getting things needed for daily living? No 08/09/2023 Housing Instability Answer Date Recorde d Are you worried or concerned that in the next two months you may not have stable housing that you own, rent or stay in as a part of a household? No 08/09/2023 Childcare Answer Date Recorded Childcare Unknown 10/18/2018 Employment Answer Date Recorded Employment Unknown 10/18/2018 Hunger Screening Answer Date Recorded Within the past 12 months we worried whether our food would run out before we got money to buy more. Never True 02/08/2024 Within the past 12 months th e food we bought just didn't last and we didn't have money to get more. Never True 02/08/2024 Purpose - Life Answer Date Recorded Purpose and direction in life Unknown Sex and Gender Information Value Date Recorded Sex Assigned at Male 08/09/2023 9:00 PM EDT Legal Sex Male 11:25 AM EDT Gender Identity Male 08/09/2023 9:00 PM EDT Sexual Orientation Straight 08/09/2023 9: 00 PM EDT documented as of this encounter Miscellaneous Notes * Telephone Encounter - Shanti Liu RN - 09/13/2024 2:04 PM EDT Received call from PCP asking if appt could be moved up if possible. Per PCP pt unable to get off O2 since back surgery. Currently scheduled 11/05 documented in this encounter Plan of Treatment Upcoming Encounters Date Type Department Care Team ([facility] st Contact Info) Description 11/05/2024 2:00 PM EDT Office Visit [facility] [address] [place] [address] Edwige Patel MD [address] [place] [address] documented as of this encounter Goals Goal Patient Goal Type Associated Problems Recent Progress Patient-Stated? Author home with self care General Yes Lian Reyes RN Note: Evaluation of progress towards goal: home documented as of this encounter Visit Diagnoses Not on filedocumented in this encounter Care Teams Boxcar Weigher Relationship Specialty Start Date End Date Marzena Fong, BUNCHER HAND-GROUP CHIEF OPERATOR [address] [facility] [place] [address] PCP - General Family Medicine 08/09/23 documented as of this encounter
--- OUTSIDE RECORDS SUMMARY | 2024-10-09 21:29 | XMS_ITS | Encounter Summary ---
[id number] [address] [place] [address] Care Team Providers Care Seed Cleaning Machine Operator Name Role Phone Marzena Fong SENIOR ADVOCATE-OFFICE MACHINE INSPECTOR Primary Care Provider Encounter Details Date Type Department Care Team (Late st Contact Info) Description 10/27/2023 Orders Only [facility] [address] [place] [phone] Shanti Liu, RN Social History Tobacco Use Types Packs/Day Years Used Date Smoking Tobacco: Former Smokeless Tobacco: Never Alcohol Use Standard Drinks/Week Comments No 0 (1 standard drink = 0.6 oz pur e alcohol) [facility] Utilities Answer Date Recorded In the past 12 months has e [employer], gas, oil, or water company threatened to [...] got money to buy more. Never True 08/09/2023 Within the past 12 months th e food we bought just didn't last and we didn't have money to get more. Never True 08/09/2023 Purpose - Life Answer Date Recorded Purpose and direction in life Unknown Sex and Gender Information Value Date Recorded Sex Assigned at Male 08/09/2023 9:00 PM EDT Legal Sex Male 11:25 AM EDT Gender Identity Male 08/09/2023 9:00 PM EDT Sexual Orientation Straight 08/09/2023 9: 00 PM EDT documented as of this encounter Plan of Treatment Upcoming Encounters Date Type Department Care Team (Late st Contact Info) Description 11/05/2024 2:00 PM EDT Office Visit [facility] [address] [place] [address] Edwige Patel MD [address] [facility] [place] [address] documented as of this encounter Goals Goal Patient Goal Type Associated Problems Recent Progress Patient-Stated? Author home with self care General Yes Lian Reyes, RN Note: Evaluation of progress towards goal: home documented as of this encounter Procedures Procedure Name Priority Date/Time Associated Diagnosis Comments SIX MINUTE WALK Routine 08/31/2023 3:56 PM EDT documented in this encounter Results * Six minute walk (08/31/2023 3:56 PM EDT) us Scanning Provider External RESPIRATORY CARE SUDHA GRANT Final Result MANUALLY TRANSCRIBED RESULTS documented in this encounter Visit Diagnoses Not on filedocumented in this encounter Care Teams Seed Cleaning Machine Operator Relationship Specialty Start Date End Date Marzena Fong, SENIOR ADVOCATE-OFFICE MACHINE INSPECTOR [address] [facility] [place] [phone] PCP - General Family Medicine 08/09/23 documented as of this encounter
--- OUTSIDE RECORDS SUMMARY | 2024-10-09 21:29 | XMS_ITS | Encounter Summary ---
Author Organization [facility] [employer] Address [facility] [id number] [address] [place] [address] Care Team Providers Care Business Integration Analyst Name Role Phone Marzena Fong SYBASE DEVELOPER-BUSINESS REPORTING DEVELOPER Primary Care Provider Encounter Details Date Type Department Care Team (Late st Contact Info) Description 08/01/2023 Telephone [facility] [address] [place] [phone] Shanti Liu, RN Social History Tobacco Use Types Packs/Day Years Used Date Smoking Tobacco: Former Smokeless Tobacco: Never Alcohol Use Standard Drinks/Week Comments No 0 (1 standard drink = 0.6 oz pur e alcohol) Childcare Answer Date Recorded Childcare Unknown 10/18/2018 Employment Answer Date Recorded Employment Unknown 10/18/2018 Hunger Screening Answer Date Recorded Within the past 12 months we worried whether our food would run out before we got money to buy more. Never True 09/13/2022 Within the past 12 months th e food we bought just didn't last and we didn't have money to get more. Never True 09/13/2022 Purpose - Life Answer Date Recorded Purpose [...] Encounter - Shanti Liu RN - 08/01/2023 4:26 PM EDT Pt called c/o increase SOB over the last couple of weeks, dry cough. Pt using Breztri, albuterol rescue inhaler and prednisone 5 mg daily. Pt pulse ox has been >95%. Denies fever. * Telephone Encounter - Edwige Patel MD - 08/01/2023 4:26 PM EDT Increase prednisone to 40 mg x 5 days and CXR * Telephone Encounter - Shanti Liu RN - 08/01/2023 4:26 PM EDT Spoke with pt , agreeable to plan. CXR order placed, prednisone sent to pharmacy documented in this encounter Plan of Treatment Upcoming Encounters Date Type Department Care Team (Late st Contact Info) Description 11/05/2024 2:00 PM EDT Office Visit [facility] [address] [place] [phone] Edwige Patel MD [address] [place] [address] documented as of this encounter Visit Diagnoses Not on filedocumented in this encounter Additional Health Concerns Infection Onset Date Last Indicated Resolved Time COVID-19 Rule-Out 08/09/2023 08/09/2023 08/09/2023 5:26 PM EDT documented as of this encounter Care Teams Business Integration Analyst Relationship Specialty Start Date End Date Marzena Fong, SYBASE DEVELOPER-BUSINESS REPORTING DEVELOPER [address] [facility] [place] [phone] PCP - General Family Medicine 08/09/23 documented as of this encounter
--- OUTSIDE RECORDS SUMMARY | 2024-10-09 21:29 | XMS_ITS | Encounter Summary ---
[id number] [address] [place] [address] Care Team Providers Care Analysis Manager Name Role Phone Marzena Fong APRN-BLEACHER KRAFT PULP Primary Care Provider Encounter Details Date Type Department Care Team (Late Contact Info) Description 03/25/2021 Orders Only [facility] [address] [place] [address] Ref Prov, [place] [address] Social History Tobacco Use Types Packs/Day Years Used Date Smoking Tobacco: Former Smokeless Tobacco: Never Alcohol Use Standard Drinks/Week Comments No 0 (1 standard drink = 0.6 oz pur e alcohol) Childcare Answer Date Recorded Childcare Unknown 10/18/2018 Employment Answer Date Recorded Employment Unknown 10/18/2018 Purpose - Life Answer Date Recorded Purpose [...] Visit [facility] [address] [place] [address] Edwige Patel MD [address] [facility] [address] [place], [place] [id number] documented as of this encounter Procedures Procedure Name Priority Date/Time Associated Diagnosis Comments [id number] Routine 03/20/2021 documented in this encounter Results * [id number] (03/20/2021) us Not In System Ref Prov LAB BLOOD ORDERABLES Iwona l Result MANUALLY TRANSCRIBED RESULTS documented in this encounter Visit Diagnoses Not on filedocumented in this encounter Additional Health Concerns Infection Onset Date Last Indicated Resolved Time COVID-19 Rule-Out 08/09/2023 08/09/2023 08/09/2023 5:26 PM EDT documented as of this encounter Care Teams Analysis Manager Relationship Specialty Start Date End Date Marzena Fong, PRECISION ASSEMBLY INSPECTOR-BLEACHER KRAFT PULP [address] [facility] [place] [phone] PCP - General Family Medicine 08/09/23 documented as of this encounter
--- OUTSIDE RECORDS SUMMARY | 2024-10-09 21:29 | XMS_ITS | Clinical Summary ---
Author Organization [facility] Address [address] [place], [place] [id number] Care Team Providers Care Senior Actuarial Analyst Name Role Phone Blayne Marion MD Primary Care Provider [phone] Allergies No known active allergies Medications VIT C/E/ZN/COPPR/ARGENIS TEIN/ZEAXAN (PRESERVISION AREDS 2 ORAL)Indication s:Prostate cancer (HCC) Take by mouth. Ac tive budesonide-form oterol (SYMBICORT) 160-4.5 mcg/actuation inhalerIndicati ons:Prostate cancer (HCC) Inhale 2 Puffs as instructed twice daily. Active albuterol HFA (PROAIR HFA) 90 mcg/actuation inhalerIndicati ons:Prostate cancer (HCC) Inhale 2 Puffs as instructed. Active levothyroxine (SYNTHROID) 50 mcg tablet 7 Active Active Problems Problem Noted Date Diagnosed Date History of prostate cancer 06/08/2017 Prostate cancer 07/27/2016 Family History Medical History Relation Comments Cancer Brother astrocytoma Cancer Mother Lung Relation Status Comments Brother Mother Social History Tobacco Use Types Packs/Day Years Used Date Smoking Tobacco: Former Cigarettes 1 56 1 950 - 05/09/2005 Smokeless Tobacco: Former Alcohol Use Standard Drinks/Week Comments No 0 (1 standard drink = 0.6 oz pur e alcohol) PHQ-2 Answer Date Recorded PHQ-2 score 0 06/06/2019 Area Deprivation Index Answer Date Elliot rded National Score (1-100), lower number is lower ri sk Not on file 04/17/2020 State Score (1-10), lower number is lower risk N ot on file 04/17/2020 Data from: https://www.neighborhoodatlas.medicine.[facility]/. Last address used for calculation Not on file 04/17/2020 Sex and Gender Information Value Date Recorded Sex Assigned at Not on file Legal Sex Male 4:28 PM EST Gender Identity Not on file Sexual Orientation Not on file Last Filed Vital Signs Vital Sign Reading Time Taken Comments Blood Pressure 141/77 06/06/2019 9:30 AM EST Pulse 78 06/06/2019 9:30 AM EST Temperature 36.4 C (97.5 F) 06/06/2019 9:30 AM EST Respiratory Rate 16 06/06/2019 9:30 AM EST Oxygen Saturation 95% 06/07/2018 9:22 AM EST Inhaled Oxygen Concentration - - Weight 79.4 kg (175 lb) 06/06/2019 9:30 AM EST Height 171.5 cm (5' 7.5 ) 07/27/2016 10:46 AM ED T Body Mass Index 27 07/27/2016 10:46 AM EDT Plan of Treatment Health Maintenance Due Date Last Done Comments Anxiety Screening 1958 Depression Screening 1958 DTaP,Tdap,Td Vaccine (1 - Tdap) 1957 Diabetes Screening 12/16/1983 Shingrix Vaccine (1 of 2) 1988 RSV Vaccine (1 - 1-dose 75+ series) 2013 Covid-19 Vaccine ( - 2023-2 5 season) 2024 Advance Directive Discussion 05/09/2024 Influenza Vaccine (Season Ended) 2025 03/09/2017, 02/07/2016, 01/27/2016, Additional history exists Pneumococcal Vaccine: 50+ Completed 2016, 04/08/2016, 03/21/2015, Additional history exists Insurance MEDICARE ADVANTAGE HMO Care Teams Senior Actuarial Analyst Relationship Specialty Start Date End Date Blayne Marion MD PCP - General Family Medicine 06/06/19
--- OUTSIDE RECORDS SUMMARY | 2024-10-09 21:29 | XMS_ITS | Encounter Summary ---
Author Organization [facility] Address [id number] [address] [place] [address] Care Team Providers Care Sound Mixer Name Role Phone Marzena Fong BED SETTER-CLUTCH MECHANIC Primary Care Provider Encounter Details Date Type Department Care Team (Late st Contact Info) Description 03/01/2024 Orders Only [facility] [address] [place] [phone] Shanti Liu, RN Social History Tobacco Use Types Packs/Day Years Used Date Smoking Tobacco: Former Smokeless Tobacco: Never Alcohol Use Standard Drinks/Week Comments No 0 (1 standard drink = 0.6 oz pur e alcohol) [facility] Utilities Answer Date Recorded In the past 12 months has e [employer], gas, oil, or water company threatened to [...] Upcoming Encounters Date Type Department Care Team ([facility] st Contact Info) Description 11/05/2024 2:00 PM EDT Office Visit [facility] [address] [facility] [address] [place] [place] [address] Edwige Patel MD [address] [facility] [place] [address] documented as of this encounter Goals Goal Patient Goal Type Associated Problems Recent Progress Patient-Stated? Author home with self care General Yes Lian Reyes, RN Note: Evaluation of progress towards goal: home documented as of this encounter Visit Diagnoses Not on filedocumented in this encounter Care Teams Sound Mixer Relationship Specialty Start Date End Date Marzena Fong, BED SETTER-CLUTCH MECHANIC [address] [place] [address] PCP - General Family Medicine 08/09/23 documented as of this encounter
--- OUTSIDE RECORDS SUMMARY | 2024-10-09 21:29 | XMS_ITS | Encounter Summary ---
Author Organization [facility] Address [id number] [address] [place] [address] Care Team Providers Care University Extension Specialist Name Role Phone Marzena Fong ELECTRICAL APPRENTICE-LADLE OPERATOR Primary Care Provider Encounter Details Date Type Department Care Team (Late st Contact Info) Description 11/23/2023 Orders Only [facility] [address] [place] [phone] Shanti Liu, ELBA Dyspnea, unspecified type (Primary Dx) Social History Tobacco Use Types Packs/Day Years Used Date Smoking Tobacco: Former Smokeless Tobacco: Never Alcohol Use Standard Drinks/Week Comments No 0 (1 standard drink = 0.6 oz pur e alcohol) [facility] Utilities Answer Date Recorded In the past 12 months has e [employer], gas, oil, or water [employer] threatened to shut off services in your [...] got money to buy more. Never True 11/07/2023 Within the past 12 months th e food we bought just didn't last and we didn't have money to get more. Never True 11/07/2023 Purpose - Life Answer Date Recorded Purpose [...] Office Visit [facility] [address] [place] [address] Edwige Patel MD [address] [facility] [address] [place] [address] documented as of this encounter Goals Goal Patient Goal Type Associated Problems Recent Progress Patient-Stated? Author home with self care General Yes Lian Reyes, RN Note: Evaluation of progress towards goal: home documented as of this encounter Results * 6 MINUTE WALK TESTING (PFT) (11/30/2023 12:04 PM EDT) Narrative MANUALLY TRANSCRIBED RESULTS - 12/25/2023 3:50 PM EDT Pt on room air saO2 reading 96%. Pt started walk and instantly began breathing thur mouth. Instructed pt to do pursed lip breathing technique. Pt had no breaks and continued walk with heavy breathing and instructed to do pursed-lip breathing. Sao2 ranged from 96% to 90% with walk. Pt tolerated procedure well. Total distance was 54% predicted. No evidence of desaturation, suboptimal distance walked, clinical correlation for underlying lung disease and recommendation for pulmonary rehab if available. Edwige Patel MD PFT ORDERABLES Final Resu lt MANUALLY TRANSCRIBED RESULTS documented in this encounter Visit Diagnoses Diagnosis Dyspnea, unspecified type- Primary Dyspnea, unspecified type documented in this encounter Care Teams University Extension Specialist Relationship Specialty Start Date End Date Marzena Fong, ELECTRICAL APPRENTICE-LADLE OPERATOR [address] [place] [phone] PCP - General Family Medicine 08/09/23 documented as of this encounter
--- OUTSIDE RECORDS SUMMARY | 2024-10-09 21:29 | XMS_ITS | Clinical Summary ---
Author Organization [facility] tem Address [id number] [address] [place] [address] Care Team Providers Care Public Relations Analyst Name Role Phone Marzena Fong PROFESSOR OF RELIGIOUS STUDIES-MEDICAL ANTHROPOLOGIST Primary Care Provider Allergies No known active allergies Medications albuterol (PROVENTIL HFA;VENTOLIN HFA) 90 mcg/actuation inhaler Inhale 2 puffs every 6 (six) hours as needed for wheezing. Active tamsulosin (FLOMAX) 0.4 mg capsule,extended release 24hr Take 1 capsule (0.4 mg total) by mouth in the morning and 1 capsule (0.4 mg total) before bedtime. Active levothyroxine (SYNTHROID, LEVOTHROID) 50 MCG tablet Take 1 tablet (50 mcg total) by mouth in the morning. Active albuterol (PROVENTIL,LUCIANA JIMMIE) 2.5 mg /3 mL (0.083 %) nebulizer solutionIndicati ons:COPD exacerbation (CMS-HCC) Inhale 3 mL (2.5 mg total) by nebulization every 4 (four) hours as needed for wheezing. 75 mL 1 4 Active gabapentin (NEURONTIN) 100 mg capsule Take 1 capsule (100 mg total) by mouth 3 (three) times a day. Active albuterol (PROVENTIL HFA;VENTOLIN HFA) 90 mcg/actuation inhalerIndicatio ns:COPD with exacerbation (CMS-HCC) Inhale 2 puffs every 6 (six) hours as needed for wheezing. 18 g 11 4 Active hydrOXYzine (ATARAX) 25 mg tablet Take 1 tablet (25 mg total) by mouth. Active pantoprazole (PROTONIX) 40 mg EC tablet Take 1 tablet (40 mg total) by mouth every morning before breakfast. 4 Active budesonide-glyco pyr-formoterol 160-9-4.8 mcg/actuation HFA aerosol inhalerIndicatio ns:Chronic obstructive pulmonary disease, unspecified COPD type ([facility]-H[facility]) Inhale 2 puffs in the morning and 2 puffs before bedtime. 10.7 g 5 4 Active predniSONE (DELTASONE) 5 mg tablet TAKE 1 TABLET BY MOUTH IN THE MORNING 90 tablet 5 Active Active Problems Problem Noted Date Diagnosed Date Benign prostatic hyperplasia with urinary obstru ction 08/09/2023 COPD exacerbation 08/09/2023 Hypothyroidism 08/09/2023 Shortness of breath 01/21/2017 Abnormal EKG 01/21/2017 Pulmonary hypertension 01/21/2017 Prostate cancer 07/27/2016 COPD (chronic obstructive pulmonary disease) Encounters Date Type Department Care Team Description 09/13/2024 Telephone [facility] [address] [place] [address] Shanti Liu RN 09/03/2024 Refill [facility] [address] [address] Edwige Patel MD from Last 3 Months Immunizations Immunization Administration Dates Next Due COVID-19 Vaccine, vector-nr, rS-Ad26, PF, 0.5mL 08/25/2020 Covid-19, Mrna, Lnp-s, Pf,tr is-sucrose,30 Mcg/0.3ml Seasonal 02/09/2023 Influenza (IM) Preservative Free 01/27/2016 Influenza High Dose Preservative Free IM 021,01/11/2018 Influenza Vaccine, Quadrivalent, Adjuvanted 08/2022 Influenza Whole 03/14/2013,02/23/2012,02/25/2011 Influenza, High-dose, Quadrivalent 01/30/2020 Influenza, Im Trivalent Preservative 02/04/2015, 02/19/2014 Influenza, Injectable, quadrivalent (PF) 022,02/07/2016 Influenza, Unspecified 03/09/2017 Pneumococcal Conjugate 13-Valent 03/16/2017,03/09 Pneumococcal Polysaccharide 04/08/2016, 1 RSV, bivalent, protein subun it RSVpreF, diluent reconstituted, 0.5 mL, PF 02/09/2023 Family History Medical History Relation Name Comments Diabetes Father Heart disease Father Cancer Mother Glaucoma Mother Relation Name Status Comments Father Mother Social History Tobacco Use Types Packs/Day Years Used Date Smoking Tobacco: Former Smokeless Tobacco: Never Tobacco Cessation:Counseling Given: Not Answered Alcohol Use Standard Drinks/Week Comments No 0 (1 standard drink = 0.6 oz pur e alcohol) [facility] Utilities Answer Date Recorded In the past 12 months has th e [employer], gas, oil, or water company threatened to [...] Orientation Straight 08/09/2023 9: 00 PM EDT Last Filed Vital Signs Vital Sign Reading Time Taken Comments Blood Pressure 149/74 04/30/2024 3:40 PM EST Pulse 79 04/30/2024 3:40 PM EST Temperature 36.7 C (98 F) 08/10/2023 7:11 AM EDT Respiratory Rate 20 08/10/2023 7:11 AM EDT Oxygen Saturation 94% 04/30/2024 3:40 PM EST Inhaled Oxygen Concentration - - Weight 80.7 kg (178 lb) 04/30/2024 3:40 PM EST Height 165.1 cm (5' 5 ) 04/30/2024 3:40 PM EST Body Mass Index 29.62 04/30/2024 3:40 PM EST Plan of Treatment Upcoming Encounters Date Type Department Care Team (Late st Contact Info) Description 11/05/2024 2:00 PM EDT Office Visit [facility] [address] [place] [address] Edwige Patel MD [id number] [place], [place] [id number] Health Maintenance Due Date Last Done Comments Depression Screening 1952 DTaP,Tdap and Td Vaccines (1 - Tdap) 1957 Zoster (Shingles) Vaccine (1 of 2) 1959 Fall Risk Screening 12/16/2003 COVID-19 Vaccine (2023-2 5 season) 2024 03/24/2024, 02/09/2023, 03/01/2022, Additional history exists Influenza Vaccine 01/07/2025 03/24/2024, , 03/01/2022, Additional history exists Tobacco Screening 04/30/2025 04/30/2024 Goals Goal Patient Goal Type Associated Problems Recent Progress Patient-Stated? Author home with self care General Yes Lian Reyes, RN Note: Evaluation of progress towards goal: home Medical Devices Not on file [place] [address] MEDICARE Advance Directives * Full Code (Latest Code Status on File) Date Activated Date Inactivated Comments 08/09/2023 5:48 PM 08/10/2023 2:14 PM Care Teams Public Relations Analyst Relationship Specialty Start Date End Date Marzena Fong, PROFESSOR OF RELIGIOUS STUDIES-MEDICAL ANTHROPOLOGIST [address] [facility] [place] [id number] PCP - General Family Medicine 08/09/23
--- OUTSIDE RECORDS SUMMARY | 2024-10-09 21:29 | XMS_ITS | Encounter Summary ---
Author Organization [facility] tem Address [id number] [address] [place] [address] Care Team Providers Care Supervisory Lifeguard Name Role Phone AjitMarzena Luann ZHONG-PRESCHOOL TEACHER AIDE Primary Care Provider Reason for Referral * Diagnostic Imaging (Routine) - Closed Specialty Diagnoses / Procedures Referred By Raphael teixeira Referred To Contact Radiology Diagnoses Other dysphagia Procedures NM gastric emptying solid Ban Haney APRN-CNP [address] [place] [id number] Phone: tel: fax: [facility] [address] [place] [address] Phone: tel: Referral ID Status Reason Start Date Expiration Date Visits Re quested Visits Authorized [id number] Closed 11/11/2023 11/10/2024 5 5 Encounter Details Date Type Department Care Team (Late st Contact Info) Description 11/11/2023 Orders Only [facility] [address] [place] [id number] Morenita Rojas CMA Other dysphagia (Primary Dx) Social History Tobacco Use Types Packs/Day Years Used Date Smoking Tobacco: Former Smokeless Tobacco: Never Alcohol Use Standard Drinks/Week Comments No 0 (1 standard drink = 0.6 oz pur e alcohol) [facility] Utilities Answer Date Recorded In the past 12 months has th e electric, gas, oil, or water company [...] [facility] [address] [place] [address] Edwige Patel MD [address] [facility] [place] [address] documented as of this encounter Goals Goal Patient Goal Type Associated Problems Recent Progress Patient-Stated? Author home with self care General Yes Lian Reyes RN Note: Evaluation of progress towards goal: home documented as of this encounter Results * NM gastric emptying solid (11/24/2023 12:56 PM EDT) Anatomical Region Laterality Modality Nuc Med N/A Nuclear Medicine 11/25/2023 11:0 1 AM EDT Narrative 11/25/2023 11:02 AM EDT NM GASTRIC EMPTYING SOLID: 11/24/2023 8:24 AM Clinical: Nausea vomiting EXAM: SOLID PHASE GASTRIC EMPTYING Procedure: Solid-phase gastric emptying study performed with PO administration of 1.1 mCi technetium 99m sulfur colloid in egg meal. Findings: Static images demonstrate activity in the stomach with emptying. No distal esophageal activity is seen. At 1 hour, there is 92% retention of activity. At 2 hours, there is 61% retention of activity. At 4 hours, there is 2% retention of activity. Impression: * Normal solid phase gastric emptying NORMAL VALUES: 1 hour - 30 - 90% retention 2 hour - < 60% retention 3 hour - < 30% retention 4 hour < 10% retention Finalized by Sai Perez MD on 11/25/2023 11:02 AM Procedure Note Sai Perez MD - 11/25/2023 NM GASTRIC EMPTYING SOLID: 11/24/2023 8:24 AM Clinical: Nausea vomiting EXAM: SOLID PHASE GASTRIC EMPTYING Procedure: Solid-phase gastric emptying study performed with PO administration of 1.1mCi technetium 99m sulfur colloid in egg meal. Findings: Static images demonstrate activity in the stomach with emptying. No distalesophageal activity is seen. At 1 hour, there is 92% retention of activity. At 2 hours, there is 61% retention of activity. At 4 hours, there is 2% retention of activity. Impression: * Normal solid phase gastric emptying NORMAL VALUES: 1 hour - 30 - 90% retention 2 hour - < 60% retention 3 hour - < 30% retention 4 hour < 10% retention Finalized by Sai Perez MD on 11/25/2023 11:02 AM us Ban Haney PHOTOGRAPH FINISHER-PRESCHOOL TEACHER AIDE IMG NM ORDERABLES Iwona l Result documented in this encounter Visit Diagnoses Diagnosis Other dysphagia- Primary Other dysphagia documented in this encounter Care Teams Supervisory Lifeguard Relationship Specialty Start Date End Date Marzena Fong, PHOTOGRAPH FINISHER-PRESCHOOL TEACHER AIDE [address] [facility], [place] [address] PCP - General Family Medicine 08/09/23 documented as of this encounter
--- OUTSIDE RECORDS SUMMARY | 2024-10-09 21:29 | XMS_ITS | CCD ---
Author Organization [facility] CliniSymt Care Team Providers Care Organizational Effectiveness Director Name Role Phone PHYSICIAN, DEFAULT Unavailable Unavailable PHYSICIAN, DEFAULT Unavailable Unavailable MARZENA BENAVIDES Primary Care Physician VIVIANA, DR ALEXEY Rodriguez Consulting Unavailable SURI, MARZENA Primary Care Unavailable SURI, MARZENA Admitting Unavailable SURI, MARZENA Attending Unavailable SURI, MARZENA Consulting Unavailable JOSE MIGUEL, DR KING Attending Unavailable LIDYAY, DR KING [...] SURI, MARZENA S Primary Care Unavailable Suri TITLE SPECIALISTDEB Marzena S Primary Care Provider EDWIGE DELANEY [...] SURI, MARZENA S Primary Care Unavailable Suri TITLE SPECIALISTDEB Marzena S Primary Care Provider [facility] Marzena S Primary Care Provider Medications Current Medications Medication Drug Class(es) Dates Sig (Normalized) Sig (Original) [id number] actuat albuterol 0.09 mg/actuat metered dose inhaler (20 sources) beta2-Adrenergic Agonist Start: 09-07-2023 take 2 puff(s) by inhalation every six hours as needed for wheezing albuterol (PROVENTIL HFA;VENTOLIN HFA) 90 mcg/actuation inhaler Indications: COPD with exacerbation ([facility]) Inhale 2 puffs every 6 (six) hours as needed for wheezing. 18 g 11 09/07/2023 Active Start: 08-10-2023 take 3 mL by inhalat ion every four hours as needed for wheezing albuterol (PROVENTIL,VENTOLIN) 2.5 mg /3 mL (0.083 %) nebulizer solution Indications: [place] exacerbation [place] Inhale 3 mL (2.5 mg total) [...] / glycopyrrolate 0.009 mg/actuat metered dose inhaler (17 sources) Corticosteroid, beta2-Adrenergic Agonist Start: 01-02-2024 End: 04-30-2024 take 2 puff(s) by inhalation in the morning tepdcmvtgb-rkafuerh-kxogtxwnsr 160-9-4.8 mcg/actuation HFA aerosol inhaler Indications: Chronic obstructive pulmonary disease, unspecified COPD type [place] [place] Inhale 2 puffs in the morning and 2 puffs before bedtime. 10.7 g 5 04/30/2024 Active End: 01-02-2024 yxwrddvamb-urlhifta-dxiafmag ol 160-9-4.8 mcg/actuation HFA aerosol inhaler Inhale. [...] 0 Active gabapentin 100 mg oral capsule (17 sources) Anti-epileptic Agent Start: 4 gabapentin 100 mg Cap 100 mg = 1 cap(s), Refills(s) 0 Start Date: 12/30/23 Status: Ordered Start: 01-08-2023 take 1 capsule by mo uth once daily at bedtime gabapentin (NEURONTIN) 100 mg capsule TAKE 1 CAPSULE BY MOUTH EVERY DAY AT BEDTIME 0 01/08/2023 Active hydrOXYzine hydrochloride 25 mg oral tablet (6 sources) Antihistamine hydrOXYzine (VANESSA RAX) 25 mg tablet Take 1 tablet (25 mg total) by mouth. Active levothyroxine sodium 0.05 mg oral tablet (20 sources) l-Thyroxine Start: 11-19-2022 Euthyrox 50 mcg [...] pantoprazole 40 mg delayed release oral tablet (5 sources) Proton Pump Inhibitor Start: 4 take 1 tablet by mouth once daily before breakfast pantoprazole (PROTONIX) 40 mg EC tablet Take 1 tablet (40 mg total) by mouth every morning before breakfast. 01/23/2024 Active predniSONE 5 mg oral tablet (15 sources) Start: 5 take 1 tablet by mouth in the morning predniSONE (DELTASONE) 5 mg tablet TAKE 1 TABLET BY MOUTH IN THE MORNING 90 tablet 09/04/2024 Active Start: 03-01-2024 End: 09-04-2024 take 1 tablet by mouth in the morning predniSONE (DELTASONE) 5 mg tablet Take 1 tablet (5 mg total) by mouth in the morning. 90 tablet 06/08/2024 09/04/2024 Discontinued Start: 10-27-2023 take 1 tablet by daniel [...] Active tamsulosin hydrochloride 0.4 mg oral capsule (20 sources) alpha-Adrenergic Dipika Start: 09-14-2023 take 1 capsule by mouth twice daily tamsulosin 0.4 mg Cap 0.4 mg = 1 cap(s), Oral, BID, # 180 cap(s), Refills(s) 3, Pharmacy: [facility], 165, cm, 11/19/22 11:43:00 EDT, Height/Length Dosing, 82, kg, 11/19/22 11:43:00 EDT, Weight Dosing Start Date: 09/14/23 Status: Ordered Start: 11-16-2021 take 1 capsule by [facility] twice daily tamsulosin 0.4 mg Cap 0.4 mg = 1 cap(s), Oral, BID, # 180 cap(s), Refills(s) 3, Pharmacy: [facility], 165, cm, 11/16/21 13:41:00 EDT, Height/Length Dosing, 80, kg, 11/16/21 13:41:00 EDT, Weight Dosing Start Date: 11/16/21 Status: Ordered take 1 capsule by [facility] every twenty-four hours in the morning, then [...] Documented Da te Episodic/Chronic Cancer of prostate (17 sources) Malignant tumor of prostate; Translations: [Malignant [...] current use of systemic steroid; 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] 04-30-2024 Episodic [...] of epididymis 02-07-2019 Episodic Pulmonary heart disease (17 sources) Pulmonary hypertension; Translations: [Pulmonary hypertension, unspecified] Onset: 01-21-2017 07-20-2018 Chronic Respiratory failure; insufficiency; arrest (adult) (5 sources) Chronic respiratory failure with hypoxia; Translations: [Chronic hypoxemic respiratory failure] Onset: 10-17-2023 10-17-2023 Chronic Screening and history of mental health and substance abuse codes (3 sources) Ex-smoker 01-08-2020 Episodic Thyroid disorders (17 sources) Hypothyroidism, unspecified; Translations: [Hypothyroidism] Onset: 10-22-2021 [...] 11-07-2023 Episodic Other aftercare (1 source) 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 * No pulmonary edema or consolidation. Mild interstitial changes and scarring. Stable heart size. Degenerative changes of the thoracic spine. Postoperative changes with surgical fixation of the left proximal humerus. Severe left glenohumeral degenerative changes. Finalized by Maciel Pinto MD on 04/23/2024 1:45 PM Normal [facility] Urology Office/Clinic Noteon 12-30-2023 Urology Office/Clinic Note [...] <0.13 11/17/23 - <0.13 TRUS/bx 06/29/16 - [place] 7 (3+4) x1 core, 22% involvement. [place] 6 (3+3) x1 core, 3% involvement. Brachytherapy [...] [facility] [address], [place] [address] [id number] Additional Instructions: 1 yr w/ PSA Patient [...] Primary malignant neoplasm of lung: Mother. Normal [facility] Comment on above: Result Comment: Elec tronically Signed By: Paula DUNCAN MD\.br\Date and Time Signed: 12/30/23 12:03 EDT\.br\Electronically Co-Signed By: Heather Valadez\.br\Date and Time Co-Signed: 12/30/23 11:59 EDT ACUTE HEPATITIS PANELon 07-0 ANTI HCV W/PCR REFLX Non-Reactive Normal NRCT Pr [facility] Comment on above: Result Comment: If recent infection suspected, recommend repeat testing (>2 months). Njttkm-bp-dzfqgc ratio is <0.80. Performed By: #### A , 13341-3 ####[facility] ([id number])[address] [place] [address], [address] [place] [address]#### 38964-9, 59657-0, 39511-7 ####[facility] ([id number])[address] [place] [address] HEPATITIS A IGM Non-Reactive Normal NR[facility] Comment on above: Performed By: #### A HP, 03949-9 ####[facility] ([id number])[address] [place] [address], [place] [address]#### 77204-9, 94481-4, 09367-4 ####[facility] ([id number])[address] [place] [address] HEPATITIS B CORE IGM Negative Normal NEG [facility] Comment on above: Performed By: #### A , 09547-8 ####[facility] ([id number])[facility], [address] [place] [address]#### 25982-1, 33724-8, 84020-8 ####[facility] ([id number])[address] [place] [address] HEPATITIS B SURF AG Negative Normal NEG [facility] Comment on above: Performed By: #### A HP, 35807-9 ####[facility] ([id number])[facility], [address] [place] [address]#### 47769-2, 96892-0, 20149-3 ####[facility] ([id number])[address] [place] [address] FL UGI WITH ESOPHAGUSon FL UGI WITH [...] White MD on 11/09/2023 10:09 AM Normal [facility] HCV FibroSURE panelon 2023 ActiTest Grade A0 Normal [facility] Comment on above: Performed By: #### C BCA, CMP, 07088-8, 73321-2, 37561-4, 13359-5, 68330-8, PINR, 61589-9 #### [facility] ([id number]) [address] [place] [address] ActiTest Interpretation no activity Normal [facility] Comment on above: Result Comment: NOTE ActiTest estimates necroinflammatory activity ActiTest Score Grade Interpretation 0.00-0.17 A0 no activity 0.17-0.29 A0-A1 no activity 0.29-0.36 A1 minimal activity 0.36-0.52 A1-A2 minimal activity 0.52-0.60 A2 significant activity 0.60-0.62 A2-A3 significant activity 0.62-1.00 A3 severe activity Performed By: #### C BCA, CMP, 02263-4, 80850-9, 28606-5, 21638-3, 60987-0, PINR, 03864-2 #### [facility] ([id number]) [address] [place] [address] 55712 ActiTest Score 0.11 Normal [facility] Comment on above: Performed By: #### C BCA, CMP, 16977-4, 66060-6, 16956-9, 84180-3, 56445-0, PINR, 62592-6 #### [facility] ([id number]) [address] [place] [address] 66751 Lozzc-0-Sebksuylvqds n, S 198 mg/dL Normal 100 - 280 [facility] Comment on above: Performed By: #### C BCA, CMP, 18163-3, 25082-3, 76979-2, 79473-7, 60075-3, PINR, 39834-7 #### [facility] ([id number]) [address] [place] [address] 55467 ALT [Catalytic activity/Vol] 20 U/L Normal 7-55 [facility] Comment on above: Performed By: #### C BCA, CMP, 03937-1, 26533-9, 96295-1, 62978-4, 91095-6, PINR, 02685-6 #### [facility] ([id number]) [address] [place] [address] 82904 Amylase [Catalytic activity/Vol] 12 U/L Normal 8 - 61 [facility] Comment on above: Performed By: #### C BCA, CMP, 60721-0, 94556-3, 32455-1, 92812-8, 51575-6, PINR, 38237-5 #### [facility] ([id number]) [address] [place] [address] 08632 Apolipoprotein A1, S 109 mg/dL Low >=120 [facility] Comment on above: Performed By: #### C BCA, CMP, 61873-7, 66107-4, 73423-2, 05058-9, 21726-3, PINR, 27953-6 #### [facility] ([id number]) [address] [place] [address] 03031 Bilirubin [Mass/Vol] 0.7 mg/dL Normal 0.0 - 1.2 [facility] Comment on above: Result Comment: NOTE Test Performed by: [facility] [address] [place] [address] Broaching Machine Repairer: Rosendo Gerardo Ph.D.; CLIA# [id number] Test Performed by: [facility] [address] [place] [address] Broaching Machine Repairer: Rosendo Gerardo Ph.D.; CLIA# [id number] Performed By: #### C BCA, CMP, 03820-5, 19753-0, 55886-0, 53743-2, 30349-1, PINR, 08203-7 #### [facility] ([id number]) [address] [place] [address] 68140 BioPredictive Serial Number [id number] Normal [facility] Comment on above: Performed By: #### C BCA, CMP, 67696-6, 74142-5, 27485-1, 37961-9, 52295-6, PINR, 38331-0 #### [facility] ([id number]) [address] [place] [address] 62265 FibroTest Interpretation moderate fibrosis [facility] Comment on above: Result Comment: NOTE FibroTest estimates liver fibrosis FibroTest Score Stage Interpretation 0.00-0.21 F0 no fibrosis 0.21-0.27 F0-F1 no fibrosis 0.27-0.31 F1 minimal fibrosis 0.31-0.48 F1-F2 minimal fibrosis 0.48-0.58 F2 moderate fibrosis 0.58-0.72 F3 advanced fibrosis 0.72-0.74 F3-F4 advanced fibrosis 0.74-1.00 F4 severe fibrosis (Cirrhosis) Performed By: #### C BCA, CMP, 33580-3, 09564-1, 21913-2, 45645-1, 14355-7, PINR, 76200-4 #### [facility] ([id number]) [address] [place] [address] 72757 FibroTest Score 0.50 Normal [facility] Comment on above: Performed By: #### C BCA, CMP, 34498-5, 58036-9, 87274-2, 50660-9, 02878-4, PINR, 03399-4 #### [facility] ([id number]) [address] [place] [address] 81465 FibroTest Stage F2 Normal [facility] Comment on above: Performed By: #### C BCA, CMP, 93344-9, 01401-4, 48862-8, 54820-4, 41311-9, PINR, 38612-3 #### [facility] ([id number]) [address] [place] [address] FibroTest-ActiTest Comment See Note Normal [facility] Comment on above: Result Comment: NOTE The [...] developed and its performance characteristics determined by [facility] in a manner consistent with CLIA requirements. This test has not been cleared or approved by the U.S. Food and Drug Administration. Performed By: #### C BCA CMP, 59038-9, 44938-5, 80395-0, 14400-2, 28138-3, PINR, 50772-7 #### [facility] ([id number]) [address] [place] [address] Haptoglobin, S 127 mg/dL Normal 30 - 200 [facility] Comment on above: Performed By: #### C BCA, CMP, 30103-7, 72411-3, 74238-3, 38558-5, 30937-0, PINR, 20758-4 #### [facility] ([id number]) [address] [place] [address] 46462 Mitochondria M2 Ab IA Qn (S) on 11-09-2023 Mitochondrial Ab (M2) <0.1 Normal <0.1 (Negative) [facility] Comment on above: Result Comment: NOTE Test Performed by: [facility] [address] [place] [address] Broaching Machine Repairer: Rosendo Gerardo Ph.D.; CLIA# [id number] Performed By: #### C BCA, CMP, 68601-4, 64092-2, 33371-1, 85548-4, 63464-0, PINR, 81138-1 #### [facility] ([id number]) [address] [place] [address] 93680 Nuclear Ab IA Ql (S)on 11-08 ABRBIE Screen w/reflex Negative Normal NEG [facility] Comment on above: Result Comment: Testing performed using multiplex flow immunoassay. Eleven different antigens associated with systemic autoimmune diseases (dsDNA,Sm,Sm/OYSTER WASHER,OYSTER WASHER,Chromatin, SSA,SSB,Diane-1,Scl70,Ribo P,Centromere B) are included in this screening test. Performed By: #### A , 48339-3 ####[facility] ([id number])[address] [facility], [address] [place] [address]#### 54568-0, 26253-2, 61461-9 ####[facility] ([id number])[address] [place] [address] 18494 Smooth muscle Ab IF Ql (S)on 11-09-2023 Smooth Muscle Ab Negative Normal Negative [facility] Comment on above: Result Comment: NOTE Negative: No further testing will be performed ADDITIONAL INFORMATION This test was developed and its performance characteristics determined by [facility] in a manner consistent with CLIA requirements. This test has not been cleared or approved by the U.S. Food and Drug Administration. Test Performed by: [facility] [address] [place] [address] Broaching Machine Repairer: Rosendo Gerardo Ph.D.; CLIA# [id number] Performed By: #### C BCA, CMP, 64008-6, 32952-5, 22264-0, 76832-7, 17837-4, PINR, 75451-5 #### [facility] ([id number]) [address] [place] [address], [place] [address] CT CHEST WO CONTon CT CHEST WO [...] Amaya MD on 10/31/2023 11:13 AM Normal [facility] US ABDOMEN LMTDon 10-01-2023 US ABDOMEN LMTD [...] Reilly MD on 10/01/2023 8:35 AM Normal [facility] CBC AND AUTO DIFFon 08-10-19 ABSOLUTE BASOPHIL 0.0 X10E9/L Normal 0.0-0.2 [facility] Comment on above: Performed By: #### C BILLIE [facility], 37652-6 ####[facility] ([id number])[address] [place] [address] 59465 ABSOLUTE NEUTROPHIL 9.7 X10E9/L High 1.5-6.6 [facility] Comment on above: Performed By: #### C BILLIE [facility], 50395-3 ####[facility] ([id number])[address] [place] [address] 26655 Basophils/100 WBC (Bld) 0.2 % Normal [facility] Comment on above: Performed By: #### C BILLIE [facility], 92710-0 ####[facility] ([id number])[address] [place] [address] 02519 Eosinophils (Bld) [#/Vol] 0.0 10*3/uL Normal 0.0-0.4 [facility] Comment on above: Performed By: #### C BUDDY WISE, ####[facility] ([id number])[address] [place] [address] 33698 Eosinophils/100 WBC (Bld) 0.0 % Normal [facility] Comment on above: Performed By: #### Sarah WISE CMP, ####[facility] ([id number])[address] [place] [address] 00970 Erythrocyte distribution width (RBC) [Ratio] 14.1 % Normal 11.5-15.0 [facility] Comment on above: Performed By: #### Sarah WISE CMP, ####[facility] ([id number])[address] [place] [address] 88800 Hematocrit (Bld) [Volume fraction] 41.7 % Normal 39-49 [facility] Comment on above: Performed By: #### Sarah WISE [facility], ####[facility] ([id number])[address] [place] [address] 19083 Hemoglobin (Bld) [Mass/Vol] 14.1 g/dL Normal 13.0-17.0 [facility] Comment on above: Performed By: #### Sarah WISE CMP, ####[facility] ([id number])[address] [place] [address] 57529 Lymphocytes (Bld) [#/Vol] 0.4 10*3/uL Low 1.0-3.5 [facility] Comment on above: Performed By: #### Sarah WISE CMP, ####[facility] ([id number])[address] [place] [address] 72990 Lymphocytes/100 WBC (Bld) 3.4 % Normal [facility] Comment on above: Performed By: #### C BILLIE CMP, ####[facility] ([id number])[address] [place] [address] 19086 MCH (RBC) [Entitic mass] 33.0 pg Normal 27-34 [facility] Comment on above: Performed By: #### Sarah WISE, CMP, ####[facility] ([id number])[address] [place] [address] 20672 MCHC (RBC) [Mass/Vol] 33.9 g/dL Normal 32-36 [facility] Comment on above: Performed By: #### Sarah WISE CMP, ####[facility] ([id number])[address] [place] [address] 95789 MCV (RBC) [Entitic vol] 97 fL Normal 80-100 [facility] Comment on above: Performed By: #### Sarah WISE, CMP, ####[facility] ([id number])[address] [place] [address] 07909 Monocytes (Bld) [#/Vol] 0.2 10*3/uL Normal 0-0.9 [facility] Comment on above: Performed By: #### Sarah WISE CMP, ####[facility] ([id number])[address] [place] [address] 57753 Monocytes/100 WBC (Bld) 1.7 % Normal [facility] Comment on above: Performed By: #### Sarah WISE, CMP, ####[facility] ([id number])[address] [place] [address] 62285 Neutrophils/100 WBC (Bld) 94.7 % Normal [facility] Comment on above: Performed By: #### Sarah WISE, CMP, ####[facility] ([id number])[address] [place] [address] 39802 Platelet mean volume (Bld) [Entitic vol] 8.7 fL Normal 7-12 [facility] Comment on above: Performed By: #### C BILLIE CMP, ####[facility] ([id number])[address] [place] [address] 10171 Platelets (Bld) [#/Vol] 227 10*3/uL Normal 150-450 [facility] Comment on above: Performed By: #### C BILLIE, CMP, ####[facility] ([id number])[address] [place] [address] 70517 RBC COUNT 4.29 X10E12/L Normal 4.10-5.70 [facility] Comment on above: Performed By: #### Sarah WISE CMP, ####[facility] ([id number])[address] [place] [address] 04632 WBC (Bld) [#/Vol] 10.2 10*3/uL Normal 4.0-11.0 [facility] Comment on above: Performed By: #### Sarah WISE, CMP, 76454-0 ####[facility] ([id number])[address] [place] [address] 26440 COMPREHENSIVE METABOLIC PANE Johnny 08-10-2023 Albumin [Mass/Vol] 3.7 g/dL Normal 3.2-5.3 [facility] Comment on above: Performed By: #### C BILLIE, CMP, ####[facility] ([id number])[address] [place] [address] 37857 ALP [Catalytic activity/Vol] 34 U/L Low 39-130 [facility] Comment on above: Performed By: #### Sarah BCA, CMP, ####[facility] ([id number])[address], [place] [address] ALT [Catalytic activity/Vol] 27 U/L Normal 0-40 [facility] Comment on above: Performed By: #### C BUDDY WISE, 17466-7 ####[facility] ([id number])[address] [place] [address] [place] [address] Anion gap [Moles/Vol] 11 mmol/L Normal 5-15 [facility] Comment on above: Performed By: #### C BUDDY WISE, 05338-0 ####[facility] ([id number])[address] [place] [address] 89544 AST [Catalytic activity/Vol] 21 U/L Normal 0-41 [facility] Comment on above: Performed By: #### C BUDDY WISE, 70524-4 ####[facility] ([id number])[address] [place] [address] [place] [address] Bilirubin [Mass/Vol] 1.0 mg/dL Normal 0.3-1.2 [facility] Comment on above: Performed By: #### C BUDDY WISE, 98022-3 ####[facility] ([id number])[address] [place] [address] [place] [address] Calcium [Mass/Vol] 8.9 mg/dL Normal 8.5-10.5 [facility] Comment on above: Performed By: #### C BUDDY WISE, 13628-6 ####[facility] ([id number])[address] [place] [address] [place] [address] Chloride [Moles/Vol] 104 mmol/L Normal 98-109 [facility] Comment on above: Performed By: #### C BILLIE CMP, 39911-9 ####[facility] ([id number])[address] [place] [address] [place] [address] CO2 [Moles/Vol] 21 mmol/L Low 22-32 [facility] Comment on above: Performed By: #### C BILLIE CMP, 94289-0 ####[facility] ([id number])[address] [place] [address] 07083 Creatinine [Mass/Vol] 1.04 mg/dL Normal 0.70-1.20 [facility] Comment on above: Result Comment: METH OD TRACEABLE TO IDMS STANDARD Performed By: #### C BILLIE [facility], ####[facility] ([id number])[address] [place] [address] 57024 GFR/1.73 sq M.predicted among non-blacks MDRD (S/P/Bld) [Vol rate/Area] 71 mL/min/{1.73_m2} Normal >59 [facility] Comment on above: Result Comment: Reported eGFR is based on the CKD-EPI 2020 equation that does not use a race coefficient. Performed By: #### C BILLIE [facility], ####[facility] ([id number])[address] [place] [id number] Glucose [Mass/Vol] 144 mg/dL High 65-99 [facility] Comment on above: Performed By: #### C BILLIE [facility], [id number] ####[facility] ([id number])[address] [place] [address] 09318 Potassium [Moles/Vol] 4.1 mmol/L Normal 3.5-5.0 [facility] Comment on above: Performed By: #### C BILLIE [facility], 61590-2 ####[facility] ([id number])[address] [place] [address] 76651 Protein [Mass/Vol] 6.1 g/dL Normal 6.0-8.0 [facility] Comment on above: Performed By: #### C BILLIE [facility], 31406-9 ####[facility] ([id number])[address] [place] [address] 32831 Sodium [Moles/Vol] 136 mmol/L Normal 134-146 [facility] Comment on above: Performed By: #### C BCA, CMP, 86911-1 ####[facility] ([id number])[address] [place] [address] 20901 Urea nitrogen [Mass/Vol] 20 mg/dL Normal 5-27 [facility] Comment on above: Performed By: #### C BCA, CMP, 98084-2 ####[facility] ([id number])[address] [place] [address] 28996 MAGNESIUMon 08-10-2023 Magnesium [Mass/Vol] 2.1 mg/dL Normal 1.8-2.6 [facility] Comment on above: Performed By: #### C BCA, CMP, 88043-7 ####[facility] ([id number])[address] [place] [address] 60833 CBC AND AUTO DIFFon 08-09-19 24 Band form neutrophils/100 WBC (Bld) 1.0 % Normal [facility] Comment on above: Performed By: #### C BCA, CMP, 51735-5, 02808-3, 55454-7, 50606-2, 71262-3, PINR, 77459-6 #### [facility] ([id number]) [address] [place] [address] 84619 Eosinophils (Bld) [#/Vol] 0.1 10*3/uL Normal 0.0-0.4 [facility] Comment on above: Performed By: #### C BCA, CMP, 73889-9, 48615-1, 47200-2, 53356-4, 14662-0, PINR, 60721-4 #### [facility] ([id number]) [address] [place] [address] 87790 Eosinophils/100 WBC (Bld) 1.0 % Normal [facility] Comment on above: Performed By: #### C BCA, CMP, 92302-0, 17230-1, 31323-4, 39208-8, 35137-7, PINR, 49786-3 #### [facility] ([id number]) [address] [place] [address] 29208 Erythrocyte distribution width (RBC) [Ratio] 13.9 % Normal 11.5-15.0 [facility] Comment on above: Performed By: #### C BCA, CMP, 24581-7, 33547-3, 14047-5, 78692-2, 79412-8, PINR, 35860-4 #### [facility] ([id number]) [address] [place] [address] 55297 Hematocrit (Bld) [Volume fraction] 42.3 % Normal 39-49 [facility] Comment on above: Performed By: #### C BCA, CMP, 60597-8, 29184-1, 45413-4, 25140-6, 16462-0, PINR, 36838-8 #### [facility] ([id number]) [address] [place] [address] 59250 Hemoglobin (Bld) [Mass/Vol] 14.5 g/dL Normal 13.0-17.0 [facility] Comment on above: Performed By: #### C BCA, CMP, 54959-0, 77797-1, 54886-6, 22058-4, 97538-6, PINR, 56395-4 #### [facility] ([id number]) [address] [place] [address] 22351 Lymphocytes (Bld) [#/Vol] 1.2 10*3/uL Normal 1.0-3.5 [facility] Comment on above: Performed By: #### C BCA, CMP, 18531-7, 22617-8, 31144-3, 74740-3, 68828-9, PINR, 63116-9 #### [facility] ([id number]) [address] [place] [address] 96826 Lymphocytes/100 WBC (Bld) 14.0 % Normal [facility] Comment on above: Performed By: #### C BCA, CMP, 09123-5, 22742-2, 98055-5, 26540-9, 28100-0, PINR, 83948-4 #### [facility] ([id number]) [address] [place] [address] 92632 MCH (RBC) [Entitic mass] 33.2 pg Normal 27-34 [facility] Comment on above: Performed By: #### C BCA, CMP, 60753-2, 72612-5, 72370-2, 76104-7, 48802-2, PINR, 51424-8 #### [facility] ([id number]) [address] [place] [address] 11115 MCHC (RBC) [Mass/Vol] 34.3 g/dL Normal 32-36 [facility] Comment on above: Performed By: #### C BCA, CMP, 19748-9, 34829-4, 34203-7, 03620-3, 09160-8, PINR, 26050-6 #### [facility] ([id number]) [address] [place] [address] 91084 MCV (RBC) [Entitic vol] 97 fL Normal 80-100 [facility] Comment on above: Performed By: #### C BCA, CMP, 71510-2, 20697-0, 70348-0, 88898-5, 43491-2, PINR, 08072-3 #### [facility] ([id number]) [address] [place] [address] 17782 Metamyelocytes/100 WBC (Bld) 1.0 % Normal [facility] Comment on above: Performed By: #### C BCA, CMP, 92373-7, 91998-3, 11977-1, 89214-2, 10712-2, PINR, 49387-5 #### [facility] ([id number]) [address] [place] [address] 13364 Monocytes (Bld) [#/Vol] 0.8 10*3/uL Normal 0-0.9 [facility] Comment on above: Performed By: #### C BCA, CMP, 40091-6, 94735-7, 33011-2, 38570-6, 67132-7, PINR, 43556-9 #### [facility] ([id number]) [address] [place] [address] 56867 Monocytes/100 WBC (Bld) 9.0 % Normal [facility] Comment on above: Performed By: #### C BCA, CMP, 44590-6, 62644-7, 53323-5, 37927-0, 28341-7, PINR, 17920-7 #### [facility] ([id number]) [address]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 HS TROP #### [address] Eosinophils (Bld) [#/Vol] 0.0 10*3/uL Normal 0.0-0.45 [facility] Comment on above: Performed By: #### C MP, BNP, CBC, HS TROP #### [address] Eosinophils/100 WBC (Bld) 0.5 % Normal . [facility] Comment on above: Performed By: #### C MP, BNP, CBC, HS TROP #### [address] Erythrocyte distribution width (RBC) [Ratio] 14.0 % Normal 12.0-14.8 [facility] Comment on above: Performed By: #### C MP, BNP, CBC, HS TROP #### [address] Hematocrit (Bld) [Volume fraction] 47.3 % Normal 38.8-50.0 [facility] Comment on above: Performed By: #### C MP, BNP, CBC, HS TROP #### [address] Hemoglobin (Bld) [Mass/Vol] 15.8 g/dL Normal 13.0-17.0 [facility] Comment on above: Performed By: #### C MP, BNP, CBC, HS TROP #### [address] Lymphocytes (Bld) [#/Vol] 0.9 10*3/uL Low 1.00-4.8 [facility] Comment on above: Performed By: #### C MP, BNP, CBC, HS TROP #### [address] Lymphocytes/100 WBC (Bld) 10.7 % Normal . [facility] Comment on above: Performed By: #### C MP, BNP, CBC, HS TROP #### [address] MCH (RBC) [Entitic mass] 30.5 pg Normal 27.5-35.2 [facility] Comment on above: Performed By: #### C MP, BNP, CBC, HS TROP #### [address] MCV (RBC) [Entitic vol] 91.2 fL Normal 83.5-101 [facility] Comment on above: Performed By: #### C MP, BNP, CBC, HS TROP #### [address] Mean Corpuscular HGB Conc 33.4 g/dL Normal 32.5-35.6 [facility] Comment on above: Performed By: #### C MP, BNP, CBC, HS TROP #### [address] Monocytes (Bld) [#/Vol] 0.9 10*3/uL High 0.0-0.8 [facility] Comment on above: Performed By: #### C MP, BNP, CBC, HS TROP #### [place] [address] [place] Monocytes/100 WBC (Bld) 11.4 % Normal . [facility] Comment on above: Performed By: #### C MP, BNP, CBC, HS TROP #### [address] Neutrophils (Bld) [#/Vol] 6.4 10*3/uL Normal 1.8-7.7 [facility] Comment on above: Performed By: #### C MP, BNP, CBC, HS TROP #### [address] Neutrophils/100 WBC (Bld) 76.7 % Normal . [facility] Comment on above: Performed By: #### C MP, BNP, CBC, HS TROP #### [address] Nucleated RBC/100 WBC (Bld) [Ratio] 0.1 % Normal 0-0.5 [facility] Comment on above: Performed By: #### C MP, BNP, CBC, HS TROP #### [address] Platelet mean volume (Bld) [Entitic vol] 7.9 fL Normal 6.6-10.1 [facility] Comment on above: Performed By: #### C MP, BNP, CBC, HS TROP #### [address] Platelets (Bld) [#/Vol] 239 10*3/uL Normal 150-450 [facility] Comment on above: Performed By: #### C MP, BNP, CBC, HS TROP #### [address] RBC (Bld) [#/Vol] 5.19 10*6/uL Normal 3.90-5.60 [facility] Comment on above: Performed By: #### C MP, BNP, CBC, HS TROP #### [address] WBC (Bld) [#/Vol] 8.3 10*3/uL Normal 4.5-11.0 [facility] Comment on above: Performed By: #### C MP, BNP, CBC, HS TROP #### [address] Comprehensive Metabolic Pane johnny 12-01-2020 Albumin [Mass/Vol] 4.4 g/dL Normal 3.2-5.5 [facility] Comment on above: Performed By: #### C MP, BNP, CBC, HS TROP #### [facility] [address] [place] [address] [place] Albumin/Globulin [Mass ratio] 1.6 {ratio} Normal [facility] Comment on above: Performed By: #### C MP, BNP, CBC, HS TROP #### [facility] [address] [place] [id number] [facility] ALP [Catalytic activity/Vol] 48 U/L Normal 32-92 [facility] Comment on above: Performed By: #### C MP, BNP, CBC, HS TROP #### [facility] [address] [place] [address] [place] ALT [Catalytic activity/Vol] 28 U/L Normal 10-60 [facility] Comment on above: Performed By: #### C MP, BNP, CBC, HS TROP #### [facility] [address] AST [Catalytic activity/Vol] 30 U/L Normal 10-42 [facility] Comment on above: Performed By: #### C MP, BNP, CBC, HS TROP #### [facility] [address] [place] [address] [place] Bilirubin [Mass/Vol] 1.1 mg/dL Normal 0.3-1.2 [facility] Comment on above: Performed By: #### C MP, BNP, CBC, HS TROP #### [facility] [address] [place] [address] [place] Calcium [Mass/Vol] 9.7 mg/dL Normal 8.2-10.2 [facility] Comment on above: Performed By: #### C MP, BNP, CBC, HS TROP #### [facility] [address] [place] [address] [place] Chloride [Moles/Vol] 101 mmol/L Normal 95-114 [facility] Comment on above: Performed By: #### C MP, BNP, CBC, HS TROP #### [facility] [address] [place] [address] [place] CO2 [Moles/Vol] 20.9 mmol/L Low 22.0-30.0 [facility] Comment on above: Performed By: #### C MP, BNP, CBC, HS TROP #### [address] Creatinine [Mass/Vol] 1.33 mg/dL High 0.64-1.27 [facility] Comment on above: Performed By: #### C MP, BNP, CBC, HS TROP #### [address] Creatinine Clr Calc Pharmacy 42.86 [facility] Comment on above: Result Comment: PERF ORMED BY: [place] [address] PATHOLOGIST CURVE SAW OPERATOR GUILHERME BRADFORD M.D. Performed By: #### C MP, BNP, CBC, HS TROP #### [address] Estimated GFR ( Kacie > 60 [facility] Comment on above: Result Comment: GFR estimated reference range: According to KDOQI guidelines, <60 ml/min/1.73m2 is sufficient to diagnose a patient with chronic kidney disease. Performed By: #### C MP, BNP, CBC, HS TROP #### [address] Estimated GFR (Non- Am 52 [facility] Comment on above: Performed By: #### C MP, BNP, CBC, HS TROP #### [address] Globulin (S) [Mass/Vol] 2.7 g/dL [facility] Comment on above: Performed By: #### C MP, BNP, CBC, HS TROP #### [address] Glucose [Mass/Vol] 109 mg/dL High 70-100 [facility] Comment on above: Result Comment: [place] om Glucose Reference Range is dependent on time and content of last meal. Glucose of more than 200 mg/dL in a nonstressed, ambulatory subject supports the diagnosis of Diabetes Mellitus. ADA recommended reference range Performed By: #### C MP, BNP, CBC, HS TROP #### [address] Potassium [Moles/Vol] 4.4 mmol/L Normal 3.5-5.1 [facility] Comment on above: Performed By: #### C MP, BNP, CBC, HS TROP #### [address] Protein [Mass/Vol] 7.1 g/dL Normal 6.1-7.9 [facility] Comment on above: Performed By: #### C MP, BNP, CBC, HS TROP #### [address] Sodium [Moles/Vol] 139 mmol/L Normal 136-146 [facility] Comment on above: Performed By: #### C MP, BNP, CBC, HS TROP #### [address] Urea nitrogen [Mass/Vol] 25 mg/dL High 9-23 [facility] Comment on above: Performed By: #### C MP, BNP, CBC, HS TROP #### [address] Creatine Kinaseon 12-01-2020 CK [Catalytic activity/Vol] 546 U/L High 22-269 [facility] Comment on above: Performed By: #### B MP, CKMB, HS TROP, CK, CBCNO #### [address] Creatinine Kinase MBon 12-01 CK.MB [Mass/Vol] 4.5 ng/mL Normal 0.6-6.3 [facility] Comment on above: Performed By: #### B MP, CKMB, HS TROP, CK, CBCNO #### [address] CKMB Relative Index 0.8 % Normal 0.00-2.50 [facility] Comment on above: Performed By: #### B MP, CKMB, HS TROP, CK, CBCNO #### [address] ECG 12 lead ECGon 12-01-2020 ECG 12 lead ECG [facility] [address] [address] Electrocardiograph Report Signed Patient: Dank Barahona MR#: [id number] 425 : 1940 Acct:[id number] Age/Sex: 79 / M ADM Date: 12/01/20 Loc: 4N Room: [address] [place] [address] Type: ADM INOo Attending Dr: Evert Dent [...] 12/01/20 0734 Signed By: 12/01/20 1214 Normal [facility] ECH echo transthoracicon ECH echo transthoracic [facility] Main [address] [address] Echocardiogram Signed Patient: Dank Barahona MR#: [id number] 425 : 1940 Acct:[id number] Age/Sex: 79 / M ADM Date: 12/01/20 Loc: 4N Room: [address] [place] [address] Type: ADM INOo Attending Dr: Evert Dent [...] 12/01/20 1646 Dictated By: Ryder Mcgovern MD, [facility] 12/01/20 1217 Signed By: 12/01/20 1646 Normal [facility] Hemogram CBC Without Diffon 12-01-2020 Erythrocyte distribution width (RBC) [Ratio] 14.4 % Normal 12.0-14.8 [facility] Comment on above: Performed By: #### B MP, CKMB, HS TROP, CK, CBCNO #### [address] Hematocrit (Bld) [Volume fraction] 43.2 % Normal 38.8-50.0 [facility] Comment on above: Performed By: #### B MP, CKMB, HS TROP, CK, CBCNO #### [address] Hemoglobin (Bld) [Mass/Vol] 14.9 g/dL Normal 13.0-17.0 [facility] Comment on above: Performed By: #### B MP, CKMB, HS TROP, CK, CBCNO #### [address] MCH (RBC) [Entitic mass] 31.3 pg Normal 27.5-35.2 [facility] Comment on above: Performed By: #### B MP, CKMB, HS TROP, CK, CBCNO #### [address] MCV (RBC) [Entitic vol] 91.1 fL Normal 83.5-101 [facility] Comment on above: Performed By: #### B MP, CKMB, HS TROP, CK, CBCNO #### [address] Mean Corpuscular HGB Conc 34.4 g/dL Normal 32.5-35.6 [facility] Comment on above: Performed By: #### B MP, CKMB, HS TROP, CK, CBCNO #### [address] Platelet mean volume (Bld) [Entitic vol] 8.0 fL Normal 6.6-10.1 [facility] Comment on above: Result Comment: PERF ORMED BY: [place] [address] PATHOLOGIST CURVE SAW OPERATOR GUILHERME BRADFORD M.D. Performed By: #### B MP, CKMB, HS TROP, CK, CBCNO #### [facility] [address] [place] [address] [place] Platelets (Bld) [#/Vol] 193 10*3/uL Normal 150-450 [facility] Comment on above: Performed By: #### B MP, CKMB, HS TROP, CK, CBCNO #### [facility] [address] RBC (Bld) [#/Vol] 4.74 10*6/uL Normal 3.90-5.60 [facility] Comment on above: Performed By: #### B MP, CKMB, HS TROP, CK, CBCNO #### [facility] [address] WBC (Bld) [#/Vol] 5.8 10*3/uL Normal 4.1-10.5 [facility] Comment on above: Performed By: #### B MP, CKMB, HS TROP, CK, CBCNO #### [address] Troponin I High Sensitivityo n 12-01-2020 Troponin I High Sensitivity 3 pg/mL Normal 0-20 [facility] Comment on above: Result Comment: PERF ORMED BY: [facility] [address] [place] [address] PATHOLOGIST CURVE SAW OPERATOR GUILHERME BRADFORD M.D. Performed By: #### B MP, CKMB, HS TROP, CK, CBCNO #### [address] Troponin I High Sensitivity 4 pg/mL Normal 0-20 [facility] Comment on above: Result Comment: PERF ORMED BY: [facility] [address] [place] [address] PATHOLOGIST CURVE SAW OPERATOR GUILHERME BRADFORD M.D. Performed By: #### C MP, BNP, CBC, HS TROP #### [place] [id number] [facility] XR chest 1V portableon 12-01 XR chest 1V portable [facility] Main [place] [id number] XRay Report Signed Patient: Dank Barahona MR#: [id number] 425 : 1940 Acct:[id number] Age/Sex: 79 / M ADM Date: 12/01/20 Loc: 4N Room: [address] [place] [address] Type: ADM IN Attending Dr: Evert Dent [...] Vicky Bonner M.D.12/01/2020 7:40 AM Dictation Location: [place] [address] Transcribed By: [facility] 12/01/20 0740 Dictated By: Vicky Bonner MD 12/01/20 0739 Signed By: 12/01/20 0740 Normal [facility] ECG 12 lead ECGon 11-30-2020 ECG 12 lead ECG [facility] Main [place] [id number] Electrocardiograph Report Signed Patient: Dank Barahona MR#: [id number] 425 : 1940 Acct:[id number] Age/Sex: 79 / M ADM Date: 12/01/20 Loc: 4N Room: [address] [place] [address] Type: DIS INOo Attending Dr: Evert Dent [...] DO 11/30/20 1733 Signed By: 12/02/20 0800 [facility] Vital Signs Date Time Vital Sign Value Performing Clinician Facility 04-30-2024 15:40-0500 Body height 165.1 cm Edwige Delaney MD Work Phone: [facility] 04-30-2024 15:40-0500 Body mass index (BMI) [Ratio] 29.62 kg/m2 Edwige Delaney MD Work Phone: [facility] 04-30-2024 15:40-0500 Body weight 80.74 kg Edwige Delaney MD Work Phone: [facility] 04-30-2024 15:40-0500 Diastolic blood pressure 74 mm[Hg] Edwige Delaney MD Work Phone: [facility] 04-30-2024 15:40-0500 Heart rate 79 /min Edwige Delaney MD Work Phone: [facility] 04-30-2024 15:40-0500 SaO2% (BldA) [Mass fraction] 94 % Edwige Delaney MD Work Phone: [facility] 04-30-2024 15:40-0500 Systolic blood pressure 149 mm[Hg] Edwige Delaney MD Work Phone: [facility] 02-08-2024 09:17-0400 Body height 165.1 cm Ban Bill TITLE SPECIALIST-REFINERY OPERATOR Work Phone: [facility] 02-08-2024 09:17-0400 Body mass index (BMI) [Ratio] 29.29 kg/m2 Ban Bill TITLE SPECIALIST-REFINERY OPERATOR Work Phone: [facility] 02-08-2024 09:17-0400 Body weight 79.83 kg Ban Bill TITLE SPECIALIST-REFINERY OPERATOR Work Phone: [facility] 02-08-2024 09:17-0400 Diastolic blood pressure 72 mm[Hg] aBn Bill TITLE SPECIALIST-REFINERY OPERATOR Work Phone: [facility] 02-08-2024 09:17-0400 Systolic blood pressure 155 mm[Hg] Ban Bill TITLE SPECIALIST-REFINERY OPERATOR Work Phone: [facility] 02-06-2024 09:02-0400 Body height 165.1 cm Edwige Delaney MD Work Phone: [facility] 02-06-2024 09:02-0400 Body mass index (BMI) [Ratio] 28.84 kg/m2 Edwige Delaney MD Work Phone: [facility] 02-06-2024 09:02-0400 Body weight 78.61 kg Edwige Delaney MD Work Phone: [facility] 02-06-2024 09:02-0400 Diastolic blood pressure 69 mm[Hg] Edwige Delaney MD Work Phone: [facility] 02-06-2024 09:02-0400 Heart rate 70 /min Edwige Delaney MD Work Phone: [facility] 02-06-2024 09:02-0400 SaO2% (BldA) [Mass fraction] 95 % Edwige Delaney MD Work Phone: [facility] 02-06-2024 09:02-0400 Systolic blood pressure 145 mm[Hg] Edwige Delaney MD Work Phone: [facility] 12-30-2023 11:14-0400 Blood Pressure Location Paula DUNCAN [facility] 12-30-2023 11:14-0400 Body temperature 98.6 [degF] Paula DUNCAN [facility] 12-30-2023 11:14-0400 Diastolic blood pressure 70 mm[Hg] Paula DUNCAN [facility] 12-30-2023 11:14-0400 Heart rate 62 /min Paula DUNCAN [facility] 12-30-2023 11:14-0400 Respiratory rate 16 /min Paula DUNCAN [facility] 12-30-2023 11:14-0400 Systolic blood pressure 127 mm[Hg] Paula DUNCAN [facility] 11-14-2023 11:26-0400 Body height 165.1 cm Edwige Delaney MD Work Phone: [facility] 11-14-2023 11:26-0400 Body mass index (BMI) [Ratio] 29.62 kg/m2 Edwige Delaney MD Work Phone: [facility] 11-14-2023 11:26-0400 Body weight 80.74 kg Edwige Delaney MD Work Phone: [facility] 11-14-2023 11:26-0400 Diastolic blood pressure 69 mm[Hg] Edwige Delaney MD Work Phone: [facility] 11-14-2023 11:26-0400 Heart rate 80 /min Edwige Delaney MD Work Phone: [facility] 11-14-2023 11:26-0400 SaO2% (BldA) [Mass fraction] 100 % Edwige Delaney MD Work Phone: [facility] Comment on above: 2L 11-14-2023 11:26-0400 Systolic blood pressure 127 mm[Hg] Edwige Delaney MD Work Phone: [facility] 11-07-2023 13:51-0400 Body height 165.1 cm Ban Bill TITLE SPECIALIST-REFINERY OPERATOR Work Phone: [facility] 11-07-2023 13:51-0400 Body mass index (BMI) [Ratio] 29.69 kg/m2 Ban Bill TITLE SPECIALIST-REFINERY OPERATOR Work Phone: [facility] 11-07-2023 13:51-0400 Body weight 80.92 kg Ban Bill TITLE SPECIALIST-REFINERY OPERATOR Work Phone: [facility] 11-07-2023 13:51-0400 Diastolic blood pressure 81 mm[Hg] Ban Bill TITLE SPECIALIST-REFINERY OPERATOR Work Phone: [facility] 11-07-2023 13:51-0400 Systolic blood pressure 151 mm[Hg] Ban Bill TITLE SPECIALIST-REFINERY OPERATOR Work Phone: [facility] 10-17-2023 14:19-0400 Body height 165.1 cm Edwige Delaney MD Work Phone: [facility] 10-17-2023 14:19-0400 Body mass index (BMI) [Ratio] 30.44 kg/m2 Edwige Delaney MD Work Phone: [facility] 10-17-2023 14:19-0400 Body weight 82.96 kg Edwige Delaney MD Work Phone: [facility] 10-17-2023 14:19-0400 Diastolic blood pressure 74 mm[Hg] Edwige Delaney MD Work Phone: [facility] 10-17-2023 14:19-0400 Heart rate 96 /min Edwige Delaney MD Work Phone: [facility] 10-17-2023 14:19-0400 SaO2% (BldA) [Mass fraction] 95 % Edwige Delaney MD Work Phone: [facility] Comment on above: Arrived on 2Lnc of O2 10-17-2023 14:19-0400 Systolic blood pressure 140 mm[Hg] Edwige Delaney MD Work Phone: [facility] 09-05-2023 11:29-0400 Body height 165.1 cm Edwige Delaney MD Work Phone: [facility] 09-05-2023 11:29-0400 Body mass index (BMI) [Ratio] 31.14 kg/m2 Edwige Delaney MD Work Phone: [facility] 09-05-2023 11:29-0400 Body weight 84.87 kg Edwige Delaney MD Work Phone: [facility] 09-05-2023 11:29-0400 Diastolic blood pressure 65 mm[Hg] Edwige Delaney MD Work Phone: [facility] 09-05-2023 11:29-0400 Heart rate 80 /min Edwige Delaney MD Work Phone: [facility] 09-05-2023 11:29-0400 SaO2% (BldA) [Mass fraction] 97 % Edwige Delaney MD Work Phone: [facility] Comment on above: arrived on 2Lnc of O2 09-05-2023 11:29-0400 Systolic blood pressure 145 mm[Hg] Edwige Delaney MD Work Phone: [facility] 11-19-2022 11:29-0400 Blood Pressure Location Paula DUNCAN [facility] 11-19-2022 11:29-0400 Diastolic blood pressure 77 mm[Hg] Paula DUNCAN [facility] 11-19-2022 11:29-0400 Heart rate 69 /min Paula DUNCAN [facility] 11-19-2022 11:29-0400 Respiratory rate 16 /min Paula DUNCAN [facility] 11-19-2022 11:29-0400 Systolic blood pressure 119 mm[Hg] Paula ALOK [facility] Encounters Encounter Date Encounter Type Care Provider Facility Start: 12-31-2024 ambulatory Paula DUNCAN Facili ty:[facility] Start: 09-03-2024 End: 09-04-2024 Refill Edwige Delaney MD [facility] Start: 06-08-2024 End: 06-08-2024 Refill Chetna GARCIA [facility] Start: 04-30-2024 End: 04-30-2024 Office outpatient visit 25 minutes Edwige Delaney MD Work Phone: [facility] Comment on above: Preop pulmonary/resp iratory exam (Primary Dx); Chronic obstructive pulmonary disease, unspecified COPD type (CMS-HCC); Current chronic use of systemic steroids Start: 04-30-2024 End: 04-30-2024 Patient encounter status Edwige Delaney MD Work Phone: [facility] Start: 04-30-2024 End: 04-30-2024 ambulatory EDWIGE DELANEY [facility] Start: 04-23-2024 End: 04-23-2024 ambulatory EDWIGE DELANEY [facility] Start: 04-18-2024 End: 04-18-2024 Telephone encounter Rosa Elena Melendez [facility] Start: 02-08-2024 End: 02-08-2024 Office outpatient visit 15 minutes Ban MACIAS Work Phone: [facility] Comment on above: Fatty liver (Primary Dx); Gastroesophageal reflux disease, unspecified whether esophagitis present; Chronic idiopathic constipation Start: 02-08-2024 End: 02-08-[address] [facility] Start: 02-06-2024 End: 02-06-2024 Office outpatient visit 15 minutes Edwige Delaney MD Work Phone: [facility] Comment on above: Chronic obstructive pulmonary disease, unspecified COPD type (CMS-HCC) (Primary Dx); SOB (shortness of breath); Pulmonary emphysema, unspecified emphysema type (CMS-HCC); Generalized pruritus Start: 02-06-2024 End: 02-06-2024 ambulatory EDWIGE DELANEY [facility] Start: 01-02-2024 End: 01-02-2024 Refill [facility]tna [facility] Comment on above: Chronic obstructive pulmonary disease, unspecified COPD type (CMS-HCC) (Primary Dx) Start: 12-30-2023 End: 12-30-2023 ambulatory Paula DUNCAN Facility:[facility] Start: 12-30-2023 End: 12-30-2023 Patient encounter procedure Paula DUNCAN [facility] Start: 12-21-2023 End: 12-21-2023 Orders Only Chetna [facility] Comment on above: Chronic respiratory failure with hypoxia (CMS-HCC) (Primary Dx); SOB (shortness of breath); Chronic obstructive pulmonary disease, unspecified COPD type (CMS-HCC) Start: 12-09-2023 End: 12-09-2023 Orders Only Chetna [facility] Start: 11-30-2023 End: 11-30-2023 ambulatory MARZENA MCCORD [facility] Start: 11-24-2023 End: 11-24-2023 ambulatory [facility] Start: 11-24-2023 End: 11-24-[address] [facility] Start: 11-24-2023 End: 11-24-[address] [facility] Start: 11-21-2023 End: 11-21-2023 Telephone encounter Chetna [facility] Start: 11-14-2023 End: 11-14-2023 Office outpatient visit 25 minutes Edwige Delaney MD Work Phone: [facility] Comment on above: SOB (shortness of br eath) (Primary Dx); Hepatic steatosis; Dyspnea, unspecified type; Chronic respiratory failure with hypoxia (CMS-HCC); Chronic obstructive pulmonary disease, unspecified COPD type (CMS-HCC) Start: 11-14-2023 End: 11-14-2023 ambulatory EDWIGE DELANEY [facility] Start: 11-09-2023 End: 11-09-2023 ambulatory MARZENA S [facility] Start: 11-07-2023 End: 11-07-2023 Office outpatient new 60 minutes Ban Bill APRN-REFINERY OPERATOR Work Phone: [facility] Comment on above: Chronic constipation (Primary Dx); Hepatic steatosis; Globus sensation; Vomiting without nausea, unspecified vomiting type; Abnormal results of liver function studies Start: 11-07-2023 End: 11-07-[address] [facility] Start: 10-31-2023 End: 10-31-2023 ambulatory EDWIGE DELANEY [facility] Start: 10-28-2023 End: 10-28-2023 ambulatory EDWIGE DELANEY [facility] Start: 10-24-2023 End: 10-27-2023 Telephone encounter Chetna [facility] Start: 10-17-2023 End: 10-17-2023 Office outpatient visit 25 minutes Edwige Delaney MD Work Phone: [facility] Comment on above: Chronic respiratory failure with hypoxia (CMS-HCC) (Primary Dx); Dyspnea, unspecified type; [place] Start: 10-17-2023 End: 10-17-2023 ambulatory EDWIGE DELANEY [facility] Start: 09-29-2023 End: 09-29-2023 ambulatory EDWIGE [facility] Start: 09-26-2023 End: 09-26-2023 ambulatory EDWIGE [facility] Start: 09-26-2023 End: 09-27-2023 ambulatory EDWIGE DELANEY [facility] Start: 09-05-2023 End: 09-05-2023 Office outpatient visit 15 minutes Edwige Delaney MD Work Phone: [facility] Comment on above: SOB (shortness of br eath) (Primary Dx); COPD with exacerbation [place] [place] Start: 09-05-2023 End: 09-05-2023 ambulatory EDWIGE [facility] Start: 08-26-2023 End: 09-05-2023 Telephone encounter Shanti Liu RN [facility] Start: 08-09-2023 End: 08-11-2023 Emergency department patient visit ANTHONY [facility] Start: 08-09-2023 End: 08-10-2023 ambulatory [facility] Luann [facility] Start: 08-02-2023 End: 08-02-2023 ambulatory EDWIGE E [facility] Start: 08-01-2023 Telephone encounter Shanti Liu RN [facility] Start: 11-19-2022 End: 11-19-2022 Patient encounter procedure Paula DUNCAN [facility] Start: 12-31-2021 End: 01-15-2022 ambulatory MARZENA [facility] Facility:[facility] Start: 11-16-2021 End: 11-16-2021 Patient encounter procedure Paula DUNCAN [facility] Start: 11-03-2021 End: 11-04-[address] ALEXEY MICHELLE Facility:[facility] Start: 10-21-2021 End: 10-22-[address] FERNANDO GILLESPIE Facility:[facility] Start: 10-20-2021 End: 10-21-[address] PAULA DUNCAN Facility:[facility] Start: 01-03-2017 End: 01-04-2017 Ambulatory DEFAULT PHYSICIAN Facility:[facility] Procedures Date Procedure Procedure Detail Performing Clinician Start: 09-05-2023 Follow-up visit Follow-up EDWIGE DELANEY Start: 10-20-[address] ALEXEY MICHELLE Comment on above: Performed By: #### PSAD #### [facility] [address] [place] [address] Dr. Vannessa Quiroga Start: 01-08-2020 Cystoscopy Paula DUNCAN Start: 10-14-2016 Brachytherapy Paula DUNCAN Start: 06-29-2016 Transrectal biopsy of prostate using ultrasound guidance Paula DUNCAN Colonoscopy Paula DUNCAN Cystoscopy Paula DUNCAN Esophagogastroduodenoscopy P marcy DUNCAN Laser assisted in si tu keratomileusis Paula DUNCAN Repair of musculoten dinous cuff of shoulder Paula DUNCAN Repair of spleen Paula ECHEVERRIA Total orchidectomy Paula Rock ATEMIGUELITO Transrectal biopsy o f prostate using ultrasound guidance Paula DUNCAN Transurethral prostatectomy Paula DUNCAN Plan of Treatment Date Care Activity Detail Author Start: 04-30-2025 Tobacco Screening Tobacco Screening [facility] Start: 02-07-2025 Adult BMI Screening Adult BMI Screening [facility] Start: 02-07-2025 Tobacco Screening Tobacco Screening [facility] Start: 02-05-2025 Adult BMI Screening Adult BMI Screening [facility] Start: 02-05-2025 Tobacco Screening Tobacco Screening [facility] Start: 01-07-2025 Influenza vaccination Influenza Vaccine [facility] Start: 11-13-2024 Adult BMI Screening Adult BMI Screening [facility] Start: 11-13-2024 Tobacco Screening Tobacco Screening [facility] Start: 11-06-2024 Adult BMI Screening Adult BMI Screening [facility] Start: 11-06-2024 Tobacco Screening Tobacco Screening [facility] Start: 11-05-2024 End: 11-05-2024 Patient encounter procedure 11/05/2024 2:00 PM EDT Office Visit [facility] [address] [phone] Edwige Delaney MD [address] [place] [address] [facility] Start: 10-16-2024 Adult BMI Screening Adult BMI Screening [facility] Start: 10-16-2024 Tobacco Screening Tobacco Screening [facility] Start: 09-21-2024 COVID-19 Vaccine ( season) COVID-19 Vaccine () [facility] Start: 09-04-2024 Adult BMI Screening Adult BMI Screening [facility] Start: 09-04-2024 Tobacco Screening Tobacco Screening [facility] Start: 08-20-2024 End: 08-20-2024 Patient encounter procedure 08/20/2024 11:45 AM EDT Office Visit [facility] [address] [place] [phone] [place] [address] [place] [address] [facility] Start: 05-19-2024 COVID-19 Vaccine ( season) COVID-19 Vaccine ( season) [facility] [email or web address] [facility] Start: 04-30-2024 End: 04-30-2024 Patient encounter procedure 04/30/2024 3:00 PM EST Office Visit [facility] [address] [place] [phone] Edwige Delaney MD [address] [place] [address] [facility] Start: 04-18-2024 End: 04-18-2025 XR Chest PA and Lateral X-ray chest 2 views Imaging Routine Chronic obstructive pulmonary disease, unspecified COPD type (CMS-HCC) SOB (shortness of breath) Emphysema (CMS-HCC) Expected: 04/18/2024, Expires: 04/18/2025 [facility] Work Phone: Comment on above: Expected: 04/18/2024, Expires: Start: 04-04-2024 Adult BMI Screening Adult BMI Screening [facility] Start: 04-04-2024 Tobacco Screening Tobacco Screening [facility] Start: 02-09-2024 End: 02-09-2024 Patient encounter procedure 02/09/2024 1:15 PM EDT Office Visit [facility] [address] [employer] [address] [place] [phone] Ban Bill, TITLE SPECIALIST-REFINERY OPERATOR [address] [employer] [address] [place] [address] [facility] Start: 02-08-2024 End: 02-08-2024 Patient encounter procedure 02/08/2024 9:30 AM EDT Office Visit [facility] [address] [employer] [address] [place] [address] [phone] Ban Bill, TITLE SPECIALIST-REFINERY OPERATOR [address] [employer] [address] [place] [address] [facility] Start: 02-06-2024 End: 02-06-2024 Patient encounter procedure 02/06/2024 9:00 AM EDT Office Visit [facility] [address] [phone] dEwige Delaney MD [address] [address] [facility] Start: 01-08-2024 COVID-19 Vaccine ( season) COVID-19 Vaccine ( season) [facility] Start: 01-08-2024 COVID-19 Vaccine ( season) COVID-19 Vaccine () [facility] Start: 01-08-2024 Influenza vaccination Influenza Vaccine [facility] Start: 11-24-2023 End: 11-24-2023 Patient encounter procedure [facility] Nuclear Med[facility] Start: 11-14-2023 End: 11-14-2023 Patient encounter procedure 11/14/2023 11:15 AM EDT Office Visit [facility] [address] [phone] Edwige Delaney MD [address] [address] [facility] Start: 11-07-2023 End: 11-07-2023 Patient encounter procedure 11/07/2023 2:00 PM EDT Office Visit [facility] [address] [place] [phone] Ban Bill APRNREFINERY OPERATOR [address] [address] [facility] Start: 11-07-2023 End: 11-06-2024 RF Gastrointestinal tract upper Views W air contrast PO and W barium contrast PO Fluoroscopy upper GI with esophagus Imaging Routine Globus sensation Vomiting without nausea, unspecified vomiting type Expected: 11/07/2023, Expires: 11/06/2024 [facility] Work Phone: Comment on above: Expected: 11/07/2023, Expires: Start: 11-07-2023 End: 11-06-2024 XR Abdomen AP X-ray abdomen ap 1 view Imaging Routine Chronic constipation Expected: 11/07/2023, Expires: 11/06/2024 [facility] [email or web address] [facility] Comment on above: Expected: 11/07/2023, Expires: Start: 10-31-2023 End: 10-31-2023 Patient encounter procedure 10/31/2023 11:30 AM EDT Appointment [facility] - Pulmonary Function [address] [place] [phone] [place] [address] [place] [address] [facility] - Pulmonary Function Start: 10-28-2023 End: 10-28-2023 Patient encounter procedure 10/28/2023 10:30 AM EDT Appointment [facility] - CT Imaging [address] [place] [phone] Edwige Delaney MD [address] [address] [facility] CT Imaging Start: 10-17-2023 End: 10-17-2023 Patient encounter procedure 10/17/2023 2:30 PM EDT Office Visit [facility] [address] [phone] Edwige Delaney MD [address] [address] [facility] Start: 10-17-2023 End: 10-16-2024 CT Chest WO contrast CT chest without contrast Imaging Routine Dyspnea, unspecified type Expected: 10/17/2023, Expires: 10/16/2024 [facility] Comment on above: Expected: 10/17/2023, Expires: Start: 09-26-2023 End: 09-26-2023 Patient encounter procedure [facility] - Ultrasound Start: 09-05-2023 End: 09-04-2024 Echo complete W/O contrast Echo complete W/O contrast Echocardiography Routine SOB (shortness of breath) Expected: 09/05/2023, Expires: 09/04/2024 [facility] Work Phone: Comment on above: Expected: 09/05/2023, Expires: Start: 09-05-2023 End: 09-04-2024 US Abdomen Ultrasound abdomen complete Imaging Routine SOB (shortness of breath) Expected: 09/05/2023, Expires: 09/04/2024 [facility] Comment on above: Expected: 09/05/2023, Expires: Start: 04-06-2023 COVID-19 Vaccine ( season) COVID-19 Vaccine ( season) [facility] Start: 12-16-2003 Fall Risk Screening Fall Risk Screening [facility] Start: 1957 Administration of varicella zoster vaccine Zoster (Shingles) Vaccine (1 of 2) [facility] Start: 1957 DTaP,Tdap and Td Vaccines (1 - Tdap) DTaP,Tdap and Td Vaccines (1 - Tdap) [facility] Start: 1956 Adult BMI Follow Up Plan Adult BMI Follow Up Plan [facility] Start: 1950 Depression Screening Depression Screening [facility] Start: 1938 Medicare Annual Wellness Visit Medicare Annual Wellness Visit [facility] End: 11-06-2024 BARBIE Screen w/ Reflex BARBIE Screen w/ Reflex Lab Routine Hepatic steatosis 1 Occurrences starting 11/07/2023 until 11/06/2024 [email or web address] Comment on above: 1 Occurrences starting 11/07/2023 until 11/06/2024 End: 11-06-2024 FibroTest-ActiTest FibroTest-ActiTest Lab Routine Hepatic steatosis 1 Occurrences starting 11/07/2023 until 11/06/2024 [email or web address] Comment on above: 1 Occurrences starting 11/07/2023 until 11/06/2024 End: 11-06-2024 Hepatitis panel, acute Hepatitis panel, acute Lab Routine Hepatic steatosis Abnormal results of liver function studies 1 Occurrences starting 11/07/2023 until 11/06/2024 [email or web address] Comment on above: 1 Occurrences starting 11/07/2023 until 11/06/2024 End: 11-06-2024 Mitochondrial AB (M2) Mitochondrial AB (M2) Lab Routine Hepatic steatosis 1 Occurrences starting 11/07/2023 until 11/06/2024 [email or web address] Comment on above: 1 Occurrences starting 11/07/2023 [...] (CMS-HCC) 1 Occurrences starting 10/17/2023 until 10/16/2024 [employer] Work Phone: Comment on above: 1 Occurrences starting 10/17/2023 until 10/16/2024 End: 11-06-2024 Smooth Muscle AB Smooth Muscle AB Lab Routine Hepatic steatosis 1 Occurrences starting 11/07/2023 until 11/06/2024 [email or web address] Comment on above: 1 Occurrences starting 11/07/2023 until 11/06/2024 Immunizations Immunization Date Immunization Notes Care Provider [facility] [facility] 03-24-2024 influenza virus vacc ine, unspecified formulation Edwige Delaney MD Work Phone: [email or web address] 02-09-2023 Covid-19, Mrna, Lnp- s, Pf,priya-sucrose,30 Mcg/0.3ml Fall23 Shanti Liu RN [facility] 02-09-2023 Influenza Vaccine, Quadrivalent, Adjuvanted Shanti Liu RN [facility] 02-09-2023 RSV, bivalent, prote in subunit RSVpreF, diluent reconstituted, 0.5 mL, PF Shanti Liu RN [facility] 02-09-2023 influenza virus vacc ine, unspecified formulation Shanti Liu RN [facility] 03-01-2022 influenza, injectabl e, quadrivalent, preservative free Shanti Liu RN [facility] 03-02-2021 influenza, high dose seasonal, preservative-free Shanti Liu RN [facility] 08-25-2020 COVID-19 Vaccine, vector-nr, rS-Ad26, PF, 0.5mL Shanti Liu RN [facility] 01-30-2020 Influenza, High-dose , Quadrivalent Shanti Liu RN [facility] 01-11-2018 influenza, high dose seasonal, preservative-free Shanti Liu RN [facility] 03-16-2017 pneumococcal conjuga te vaccine, 13 valent Shanti Liu RN [facility] 03-09-2017 influenza virus vacc ine, unspecified formulation Shanti Liu RN [facility] 04-08-2016 pneumococcal polysaccharide vaccine, 23 valent Shanti Liu RN [facility] 02-07-2016 influenza, injectabl e, quadrivalent, preservative free Shanti Liu RN [facility] 01-27-2016 influenza, seasonal, injectable, preservative free Shanti Liu RN [facility] 03-21-2015 pneumococcal conjuga te vaccine, 13 valent Shanti Liu RN [facility] 02-04-2015 influenza, seasonal, injectable Shanti Liu RN [facility] 02-19-2014 influenza, seasonal, injectable Shanti Liu RN [facility] 03-14-2013 influenza virus vacc ine, whole virus Shanti Liu RN [facility] 02-23-2012 influenza virus vacc ine, whole virus Shanti Liu RN [facility] 02-25-2011 influenza virus vacc ine, whole virus Shanti Liu RN [facility] 11-10-2010 pneumococcal polysaccharide vaccine, 23 valent Shanti Liu RN [facility] Payers Date Payer Category Payer Medicare [facility] MEDIC[facility] ANTHEM MEDICARE ADVANTAGE [id number] 2016-Present [phone] [address] [place] [address] [id number] 2016 Medicare HMO AN[employer]M MEDICARE Member Subscriber Plan / Payer (Effective 2016-Present) Name: Brooklyn Dank Aleks Relation to Subscriber: Self Name: Brooklyn Dank Aleks Payer ID: [id number] (NAIC) Group ID: [id number] Type: Not on file Address: [address] [place] [id number] 1959 Unknown [id number] 1938 Unknown [id number] 2.16840.1.356954.3.579.2.59 3 1938 Unknown [id number] 2.840.1.792275.3.579.2.59 3 1938 Unknown [id number] 2.16840.1.639549.3.579.2.59 3 1938 Unknown [id number] 2.16840.1.053619.3.579.2.59 3 1938 Unknown [id number] 2.16.840.1.829919.3.579.2.72 7 1938 Unknown [id number] 2.16840.1.847737.3.579.2.72 7 1938 Unknown [id number] 2.16.840.1.583862.3.579.2.12 86 1938 Unknown [id number] 2.16.840.1.759555.3.579.2.12 86 1938 Unknown [id number] 2.16.840.1.587230.3.579.2.12 86 1938 Unknown [id number] 2.16.840.1.055458.3.579.2.12 86 1938 Unknown [id number] 2.16.840.1.281877.3.579.2.12 86 1938 Unknown [id number] 2.16.840.1.330491.3.579.2.12 86 1938 Unknown [id number] 2.16.840.1.732130.3.579.2.12 86 1938 Unknown [id number] 2.16.840.1.445422.3.579.2.12 86 1938 Unknown [id number] 2.16.840.1.666377.3.579.2.12 86 1938 Unknown [id number] 2.16.840.1.833654.3.579.2.12 86 1938 Unknown [id number] 2.16.840.1.219449.3.579.2.12 86 1938 Unknown [id number] 2.16.840.1.285469.3.579.2.12 86 1938 Unknown [id number] 2.16.840.1.489107.3.579.2.12 86 1938 Unknown [id number] 2.16.840.1.364620.3.579.2.12 86 1938 Unknown [id number] 2.16.840.1.096797.3.579.2.12 86 1938 Unknown [id number] 2.16.840.1.016770.3.579.2.12 86 1939 Unknown [id number] 2.16.840.1.760887.3.579.2.12 86 1938 Unknown [id number] 2.16.840.1.648030.3.579.2.12 86 1938 Unknown [id number] 2.16.840.1.635102.3.579.2.12 86 1938 Unknown [id number] 2.16.840.1.196508.3.579.2.12 86 1938 Unknown [id number] 2.16.840.1.708619.3.579.2.12 86 1938 Unknown [id number] 2.16.840.1.875682.3.579.2.12 86 1938 Unknown [id number] 2.16.840.1.646047.3.579.2.12 86 1938 Unknown [id number] 2.16.840.1.375647.3.579.2.12 86 Unknown Social History Date Type Detail Facility Start: 01-08-2020 End: 03-01-2022 Tobacco smoking status Ex-smoker (finding) [facility] Start: 06-19-2020 End: 08-09-2023 Sex Assigned At Male [facility] Tobacco smoking status Never [facility] History of tobacco use Current smoker [facility] Start: 03-01-2022 Tobacco use and exposure Smokeless tobacco non-user [facility] Start: 02-08-2024 End: 04-30-2024 Alcoholic beverage intake Current non-drinker of alcohol (finding) [email or web address] Start: 06-19-2020 End: 04-30-2024 Alcoholic beverage intake [facility] Has the [employer], or [employer] threatened to shut off services in your home in past 12Mo No [facility] Start: 1940 Sex assigned at Male [facility] Start: 12-12-2014 Sex Male (finding) [facility] Start: 08-09-2023 Gender identity Identifies as male gender (finding) [facility] Start: 08-09-2023 Sexual orientation Heterosexual (fin jaden) [facility] Start: 1940 Sex Assigned At Not on file [facility] Goals Date Patient Goal Desired Activity /State Personal health goal Comment on above: Formatting of this n ote might be different from the original. Evaluation of progress towards goal: home Functional Status Date Assessment Result Facility 12-30-2023 Functional Status N/A [facility] 11-19-2022 Functional Status N/A [facility] 11-16-2021 Functional Status N/A [facility] Clinical Notes 11-16-2021 to 06-08-2024 Telephone Encounter - RADHA Neumann - 06/08/2024 9:50 AM ESTTelephone Encounter - RADHA Neumann - 06/08/2024 9:50 AM Noah Delaney MD - 04/30/2024 3:00 PM ESTPatient Instructions Note Date & Type Note Facility 06-08-2024 Miscellaneous Notes Patient's /VIOLA Angie, called office requesting a refill of Prednisone 5 mg to be sent to [facility] in [place]. documented in this encounter [facility] 06-08-2024 Telephone encounter Note Patient's /ALINACAITLYN Angie, called office requesting a refill of Prednisone 5 mg to be sent to [facility] in [place]. [facility] 04-30-2024 History of Present illness Narrative Images from the original note were not included. [address] [place] [address] Patient: Dank Barahona Date of : 1940 [...] Continue on prednisone 5 mg 2. Possible buyer planner for itching 3. Intermediate risk for perioperative pulmonary complications, not prohibitive for surgery 4. Follow up in 6 month Edwige Delaney MD Pulmonary and Sleep Medicine [facility] Past Medical, Family, and Social History Update: The following portions of the patient's history were reviewed and updated as appropriate: allergies, current medications, past family history, past medical history, past social history, past surgical history and problem list. Past Medical History: Diagnosis Date Abnormal EKG 01/21/2017 Benign prostatic hyperplasia with urinary obstruction 08/09/2023 Chronic gastritis [place] obstructive [place] disease[place] [place] 08/09/2023 COVID-19 05/25/2020 Esophagitis GERD (gastroesophageal reflux disease) Hypothyroidism 08/09/2023 On home oxygen therapy Prostate cancer [place] 07/27/2016 Pulmonary hypertension [place] 01/21/2017 Shortness of breath 01/21/2017 Past Surgical [...] drinks of alcohol documented [email or web address] 04-30-2024 Instructions Edwige Delaney MD - 04/30/2024 3:00 PM EST 1. Continue on prednisone 5 mg 2. Possible buyer planner for itching 3. Intermediate risk for perioperative pulmonary complications, not prohibitive for surgery 4. Follow up in 6 month documented in this encounter [email or web address] 04-18-2024 Miscellaneous Notes Pt's doctors office LVM requesting pulmonary clearance for surgery scheduled on 05/16/2024. Please call Uma back to discuss at [phone], option 3, extension [phone]. Thank you! Provisioning Specialist called Uma back and left voicemail requesting a return call. Uma called office back and informed her that we would call patient and try to get him in on 04/30/2024. Uma verbalized understanding and asked that we call her once he is scheduled. Provisioning Specialist verbalized understanding. Provisioning Specialist called patient and spoke with his /HIPAA, Angie, offered 3pm on 04/30/2024 for pulmonary clearance. Angie confirmed appointment date and time. Provisioning Specialist called Uma back and left voicemail informing her of date and time. Asked that Uma fax over the clearance request form for KW to sign off on to [phone]. Chest xray only please Order for CXR placed, leader writer called patient and spoke to his /HIPAA, Angie, informed her that KW would like CXR completed prior to his appointment with her on 04/30/2024, Angie verbalized understanding. [facility]-18[facility]24 Telephone encounter Note Pt's doctors office LVM requesting pulmonary clearance for surgery scheduled on 05/16/2024. Please call Uma back to discuss at [phone], option 3, extension [phone]. Thank you! [email or web address] 04-18-2024 Telephone encounter Note Provisioning Specialist called Uma back and left voicemail requesting a return call. [facility] 04-18-2024 Telephone encounter Note Uma called office back and informed her that we would call patient and try to get him in on 04/30/2024. Uma verbalized understanding and asked that we call her once he is scheduled. Provisioning Specialist verbalized understanding. [facility] 04-18-2024 Telephone encounter Note Provisioning Specialist called patient and spoke with his /HIPAA, Angie, offered 3pm on 04/30/2024 for pulmonary clearance. Angie confirmed appointment date and time. [facility] 04-18-2024 Telephone encounter Note Provisioning Specialist called Uma back and left voicemail informing her of date and time. Asked that Uma fax over the clearance request form for JOSÉ to sign off on to [phone]. [facility] 04-18-2024 Telephone encounter Note Chest xray only please [facility] 04-18-2024 Telephone encounter Note Order for CXR placed, leader writer called patient and spoke to his /HIPAA, Angie, informed her that JOSÉ would like CXR completed prior to his appointment with her on 04/30/2024, Angie verbalized understanding. [facility] 02-08-2024 History of Present illness Narrative [facility] Follow Up CHIEF COMPLAINT: [...] Chronic gastritis COPD [place]chronic obstructive pulmonary disease[place] [place] [place] 08/09/2023 COVID-19 05/25/2020 Esophagitis GERD (gastroesophageal reflux disease) Hypothyroidism 08/09/2023 On home oxygen therapy Prostate cancer [place] [place] 07/27/2016 Pulmonary hypertension [place] [place] 01/21/2017 Shortness of breath 01/21/2017 PREVIOUS [...] mouth in the morning., Disp: , Rfl: vfcilwkvtx-fowurksf-utxfqdjucl 160-9-4.8 mcg/actuation HFA aerosol inhaler, Inhale 2 [...] well-nourished. No apparent distress. present for appt. CROW. HEAD: Normocephalic, atraumatic EYES: Pupils equal, round [...] Stage F2 FibroTest Interpretation moderate fibrosis IMAGING: [facility] 11/2023: Findings: Static images [...] months or sooner if needed. Ban Bill, TITLE SPECIALIST-REFINERY OPERATOR [facility] [address] [place] [address] PH: [phone] SR/KAELYN Total time spent: 45 minutes Preparing to see the patient (e.g., review of tests) Obtaining and/or reviewing separately obtained history Performing a medically appropriate examination and/or evaluation Counseling and educating the patient/family/caregiver Ordering medications, tests, or procedures GILBERTO Prince 02/08/24 1225 documented in this encounter [facility] 02-08-2024 Instructions GILBERTO Prince - 02/08/2024 9:30 AM EDT PLAN: Start one capful of MiraLax daily. Reduce sugar foods, caffeine Continue Pantoprazole 40 mg daily at least 30 minutes before breakfast. Call if no improvement. Follow up in 6 months or sooner if needed. The following attachments cannot be sent through Care Everywhere.Nonalcoholic fatty liver disease (Gambian)documented in this encounter [facility] 02-06-2024 History of Present illness Narrative Images from the original note were not included. [address] [place] [address] Patient: Dank Barahona Date of : 1940 [...] Chronic gastritis COPD (chronic obstructive pulmonary disease) (CMS-HCC) COPD exacerbation [place] [place] 08/09/2023 COVID-19 05/25/2020 Esophagitis GERD (gastroesophageal reflux disease) Hypothyroidism 08/09/2023 On home oxygen therapy Prostate cancer [place] [place] 07/27/2016 Pulmonary hypertension [place] [place] 01/21/2017 Shortness of breath 01/21/2017 Past Surgical [...] 2 capsules by mouth in the morning. rloyjcgmcj-soisjawi-iifkimjlbq 160-9-4.8 mcg/actuation HFA aerosol inhaler Inhale 2 [...] drinks of alcohol documented in this encounter [facility] 02-06-2024 Instructions Edwige Delaney MD - 02/06/2024 9:00 AM EDT 1. Focus on purse lip breathing (on exertion) 2. Reviewed CT, discussed emphysema 3. Follow up in 6 months documented in this encounter [facility] 01-02-2024 Miscellaneous Notes Patient needs new prescription for Breztri, prescription needs printed and signed and then sent to [facility]. documented in this encounter [facility] 01-02-2024 Telephone encounter Note Patient needs new prescription for Breztri, prescription needs printed and signed and then sent to [employer]. [facility] 12-30-2023 Hospital Discharge instructions Patient Education [...] to find more information [place] Cancer Society: www.cancer.org [place] Urological Association: www.auanet.org Contact a health care [...] provider. Document Revised: 10/19/2021 Document Reviewed: 10/19/2021 [facility] Patient Education 2022 [employer]. Follow Up Care 11/19/2022 12:00:06 With:ALOK GARZON, Paula Isabel, URL Address: [facility] [address] [place] [id number]- [phone] When: Unknown Comments:1 yr w/ PSA [facility] 12-30-2023 Note Patient Education Oncology Prostate [...] find more information ? [place] Cancer Society: www.cancer.org ? [place] Urological Association: www.auanet.org Contact a health care [...] of the rectum. (more content not included)... [facility] 12-09-2023 History of Present illness Narrative Received fax from [facility] requesting update six minute test results. Routed message to KW and MP to review patient's six minute walk test results and advise if oxygen is needed. documented in this encounter [facility] 11-21-2023 Miscellaneous Notes Received fax from [facility] requesting an updated order and updated office note, re-faxed updated oxygen order, office note, and 6MWT to [facility]. documented in this encounter [facility] 11-21-2023 Telephone encounter Note Received fax from [facility] requesting an updated order and updated office note, re-faxed updated oxygen order, office note, and 6MWT to [facility]. [facility] 11-14-2023 History of Present illness Narrative Images from the original note were not included. [address] [place] [address] Patient: Dank Barahona Date of : 1940 Encounter Date: 11/14/2023 History of Present Illness: The patient is a 82 y.o. male, is here for follow up of dyspnea. 6MW at [place] faxed to [facility] on 11/08. Has repeated PFTs and is [...] (ineffective) Breo (ineffective) Triggers: Nicotine use = - (1 ppd), quit 2005 Second hand smoke [...] history, 50 pyh, quit 2006 Plan: 1. Discussed prednisone and GERD 2. [...] Chronic gastritis COPD [place]chronic obstructive pulmonary disease) [place] [place] [place] 08/09/2023 COVID-19 05/25/2020 Esophagitis GERD (gastroesophageal reflux disease) Hypothyroidism 08/09/2023 On home oxygen therapy Prostate cancer [place] [place] [place] 07[place]27/2016 Pulmonary hypertension [place] 01/21/2017 Shortness of breath 01/21/2017 Past Surgical [...] 2 capsules by mouth in the morning. azfcejquex-dsomdqgs-jfgeiozamr 160-9-4.8 mcg/actuation HFA aerosol inhaler Inhale. gabapentin [...] drinks of alcohol documented in this encounter [facility] 11-14-2023 Instructions Edwige Delaney MD - 11/14/2023 11:15 AM EDT 1. Discussed prednisone and GERD 2. Biotine mouth wash (prior to bed time), if no improvement, consider xylomelts (over the counter) 3. Discussed possible referral to Dr. Keller for valve therapy for empyhsema 4. Follow up in 3 months documented in this encounter [facility] 11-07-2023 History of Present illness Narrative [facility] New Patient Visit - History & Physical [...] Chronic gastritis COPD (chronic obstructive pulmonary disease) [place] [place] [place]ation [place] [place] [place] 08/09/2023 COVID-19 05/25/2020 Esophagitis GERD (gastroesophageal reflux disease) Hypothyroidism 08/09/2023 On home oxygen therapy Prostate cancer [place] 07/27/2016 Pulmonary hypertension [place] 01/21/2017 Shortness of breath 01/21/2017 PREVIOUS [...] mouth in the morning., Disp: , Rfl: wupgpjzhjh-kphvdrqy-uedcmgphke 160-9-4.8 mcg/actuation HFA aerosol inhaler, Inhale., Disp: [...] well-nourished. No apparent distress. present for appt. CROW. HEAD: Normocephalic, atraumatic EYES: Pupils equal, round [...] months or sooner if needed. GILBERTO Turcios [facility] [address] [place] [id number] PH: [phone] SR/KAELYN Total time spent: 45 minutes Preparing to see the patient (e.g., review of tests) Obtaining and/or reviewing separately obtained history Performing a medically appropriate examination and/or evaluation Counseling and educating the patient/family/caregiver Ordering medications, tests, or procedures GILBERTO Prince 11/07/23 1545 documented in this encounter [facility] 10-24-2023 Miscellaneous Notes Images from the original note were not included. [facility] sent out office a fax requesting that patient has updated oxygen testing. Please review and advise. It was just done at [facility] Provisioning Specialist called and left voicemail for [facility] requesting that they fax any recent oxygen testing that the patient had completed with them recently. Images from the original note were not included. Received 6MWT from [facility], leader writer faxed 6MWT with oxygen order to [facility]. documented in this encounter [facility] 10-24-2023 Telephone encounter Note Images from the original note were not included. [facility]oke sent out office a fax requesting that patient has updated oxygen testing. Please review and advise. [facility] 10-24-2023 Telephone encounter Note It was just done at [facility] 10-24-2023 Telephone encounter Note Provisioning Specialist called and left voicemail for [facility] requesting that they fax any recent oxygen testing that the patient had completed with them recently. [facility] 10-24-2023 Telephone encounter Note Images from the original note were not included. Received 6MWT from [facility], leader writer faxed 6MWT with oxygen order to [facility]. [facility] 10-17-2023 History of Present illness Narrative Images from the original note were not included. [address] [place] [address] Patient: Dank Barahona Date of : 1940 [...] Chronic gastritis COPD (chronic obstructive pulmonary disease) ([facility] COVID-19 05/25/2020 Esophagitis GERD (gastroesophageal reflux disease) [...] 2 capsules by mouth in the morning. iempigvxif-sweajkmi-npthmghkwk 160-9-4.8 mcg/actuation HFA aerosol inhaler Inhale. gabapentin [...] drinks of alcohol [facility] 10-17-2023 Instructions Edwige Delaney MD - 10/17/2023 2:30 PM EDT 1. Normal d-dimer, CT chest 2. Repeat PFTs 3. Prescription for oxygen concentrator 4. Continue on Breztri 5. Follow up after testing by phone call. documented [email or web address] 09-[facility]23 History of Present illness Narrative Images from the original note were not included. [address] [place] [address] Patient: Dank Barahona Date of : 1940 [...] pulmonary hypertension (RVSP 36 mmHg, improved from 2016) 3. Bilateral lower lobe interstitial change, unknown subtype 4. GERD 5. Prostate cancer 6. COVID 27 May 2020 7. Chronic steroid use (prednisone 5 mg daily) 8. History of nicotine use, 2005 Plan: 1. 6 minute walk from [place] last week 2. Use oxygen when exerting [...] Chronic gastritis COPD (chronic obstructive pulmonary disease) ([facility] COVID-19 05/25/2020 Esophagitis GERD (gastroesophageal reflux disease) [...] 2 capsules by mouth in the morning. qxnysxhtuw-grjpqqfv-fodfqifnha 160-9-4.8 mcg/actuation HFA aerosol inhaler Inhale. gabapentin [...] drinks of alcohol documented in this encounter [facility] 09-05-2023 Instructions Edwige Delaney MD - 09/05/2023 11:15 AM EDT 1. 6 minute walk from [place] last week 2. Use oxygen when exerting 3. Discuss issues with swallowing with PCP 4. Start antihistamine (Claritin) 5. Continue Breztri 6. ECHO and ultrasound of abdomen 7. Follow up in October 2023 documented in this encounter [facility] 08-26-2023 Miscellaneous Notes Received call from pt [...] you reach out to schedule? Lives in [place]. Provisioning Specialist called patient and spoke with patient's /HIPAA, Angie, offered for patient to follow up in [facility] due to no sooner appointments in [place], Angie stated she would prefer [place] as they are unsure where the [facility] is and they are not comfortable traveling that far. Please advise as JOSÉ has no sooner appointments in [place] and has patient's already scheduled over her lunch. Can we keep an eye out for a cancellation with KW? Patient was seen in office on 09/05/2023 with JOSÉ. documented in this encounter [facility] 08-26-2023 Telephone encounter Note Received call [...] recent CXR done 08/09/23 while in ED. [facility] 08-26-2023 Telephone encounter Note Ok to add on. Please have him increase his albuterol to every 4 hours. [facility] 08-26-2023 Telephone encounter Note Pt agreeable to increase albuterol q4h. Chetna can you reach out to schedule? Lives in [place]. [facility] 08-26-2023 Telephone encounter Note Provisioning Specialist called patient and spoke with patient's /HIPAA, Angie, offered for patient to follow up in [facility] due to no sooner appointments in [place], Angie stated she would prefer [place] as they are unsure where the [place] is and they are not comfortable traveling that far. Please advise as KW has no sooner appointments in [place] and has patient's already scheduled over her lunch. [facility] 08-26-2023 Telephone encounter Note Can we keep an eye out for a cancellation with KW? [facility] 08-26-2023 Telephone encounter Note Patient was seen in office on 09/05/2023 with KW. [facility] 08-01-2023 Miscellaneous Notes Pt Angie left message, returned call left message documented in this encounter [facility] 08-01-2023 Telephone encounter Note Pt Angie left message, returned call left message [facility] 11-19-2022 Hospital Discharge instructions Patient Education [...] urethra. Follow these instructions at home: Take ouja-anj-aojxcpd and prescription medicines only as told by [...] provider. Document Revised: 11/11/2021 Document Reviewed: 11/11/2021 [facility] Patient Education 2022 Metric Insights. Follow Up Care 11/16/2021 14:26:07 With:ALOK GARZON Paula Isabel, URL Address: [facility] [address], [place] [address]- When: Unknown [facility] 11-16-2021 Hospital Discharge instructions Patient Education 11/16/2021 [...] 04/25/2006 Document Revised: 01/12/2019 Document Reviewed: 03/25/2017 [facility] Patient Education 2020 Metric Insights. 11/16/2021 14:13:15 Benign Prostatic Hyperplasia Benign Prostatic [...] urethra. Follow these instructions at home: Take ocup-skb-ebcfxgr and prescription medicines only as told by [...] 04/25/2006 Document Revised: 03/20/2019 Document Reviewed: 05/30/2017 [facility] Patient Education 2020 Metric Insights. Follow Up Care 11/03/2020 12:25:53 With:ALOK GARZON, Paula Isabel, SILVIOL Address: [facility] [address] , [place] [phone] When:Within 1 Year(s) Comments:1 year fu w PSA [facility] Evaluation + Plan note Future Appointments Appointment Date:11/19/2022 11:00:00 AM Scheduled Provider:Paula DUNCAN MD Location:[facility] Appointment Type:URO Office Visit Diagnostic Tests PendingPSA Total 11/16/21PSA Total 11/16/21 [facility] Evaluation + Plan note Future Appointments Appointment Date:11/21/2023 09:45:00 AM Scheduled Provider:Paula DUNCAN MD Location:[facility] [place] Appointment Type:URO Office Visit Diagnostic Tests PendingPSA Total 10/08/23 [facility] Evaluation + Plan note Future Appointments Appointment Date:12/31/2024 10:45:00 AM Scheduled Provider:Paula DUNCAN MD Location:[facility] Appointment Type:URO Office Visit Diagnostic Tests PendingPSA Total 12/30/23 [facility] Evaluation note Diagnosis Preop pulmonary/respiratory exam- Primary Pre-operative respiratory examination Chronic obstructive pulmonary disease, unspecified COPD type ([facility]-HCC) Current chronic use of systemic steroids documented in this encounter [facility] System[facility] note* Diagnosis SOB (shortness of breath)- Primary Shortness of breath COPD with exacerbation ([facility]) documented in this encounter [employer] [employer] SystemEvaluation note* Diagnosis Chronic respiratory failure with hypoxia (CMS-HCC)- Primary Dyspnea, unspecified type COPD with exacerbation (CMS-HCC) documented in this encounter [facility] SystemEvaluation note* Diagnosis Chronic constipation- Primary Unspecified constipation Hepatic steatosis Other chronic nonalcoholic liver disease Globus sensation Gastrointestinal malfunction arising from mental factors Vomiting without nausea, unspecified vomiting type Abnormal results of liver function studies Nonspecific abnormal results of liver function study documented in this encounter [facility] SystemEvaluation note* Diagnosis Dyspnea, unspecified type Hepatic steatosis Other chronic nonalcoholic liver disease Chronic respiratory failure with hypoxia (CMS-HCC) Chronic obstructive pulmonary disease, unspecified COPD type (CMS-HCC) documented in [facility] encounter [facility]* Diagnosis Chronic respiratory failure with hypoxia (CMS-HCC)- Primary SOB (shortness of breath) Shortness of breath Chronic obstructive pulmonary disease, unspecified COPD type (CMS-HCC) [facility] encounter [facility]* Diagnosis Chronic obstructive pulmonary disease, unspecified COPD type (CMS-HCC)- Primary documented in this encounter [facility]* Diagnosis Chronic obstructive pulmonary disease, unspecified COPD type (CMS-HCC)- Primary SOB (shortness of breath) Shortness of breath Pulmonary emphysema, unspecified emphysema type ([facility]) Generalized pruritus Unspecified pruritic disorder documented in this encounter [facility]* Diagnosis Fatty liver- Primary Other chronic nonalcoholic liver disease Gastroesophageal reflux disease, unspecified whether esophagitis present Chronic idiopathic constipation Unspecified constipation documented in this encounter [facility] note* Diagnosis Chronic obstructive pulmonary disease, unspecified COPD type (CMS-HCC)- Primary SOB (shortness of breath) Shortness of breath Emphysema ([facility]) documented in this encounter [facility] SystemHospital course Narrative No data available for this section [facility] InstructionsNot on filedocumented in this encounter [facility]ructionsNot on filedocumented in this encounter [facility] SystemInstructionsNot on filedocumented in this encounter [facility] SystemInstructions* Attachments The following attachments cannot be sent through Care Everywhere. * Nonalcoholic fatty liver disease ([place]) documented in this [facility] SystemInstructionsNot on file documented in this encounterProMediri Health SystemInstructionsNot on file documented in this encounterProSelect [facility]ty Hospital Health SystemInstructionsNot on file documented [facility] SystemProgress note No data available for this section [facility] Summary Purpose Family History No Family History [...] Referral Specialty Diagnoses / Procedures Referred By Contac t Referred To Contact Diagnoses Globus sensation Vomiting without nausea, unspecified vomiting type Procedures Fluoroscopy upper GI with esophagus Ban Bill, TITLE SPECIALIST-REFINERY OPERATOR [address] [address] Referral ID Status Reason Start Date Expiration Date V isits Requested Visits Authorized [id number] Pending Review 11/07/2023 11/06/2024 1 1 Specialty Diagnoses / Procedures Referred By Contac t Referred To Contact Radiology Diagnoses Dyspnea, unspecified type Procedures CT chest without contrast Edwige Delaney MD [address] [place] [address] Referral ID Status Reason Start Date Expiration Date V isits Requested Visits Authorized [id number] Pending Review 10/17/2023 10/16/2024 1 1 Specialty Diagnoses / Procedures Referred By Contac t Referred To Contact Diagnoses Chronic respiratory failure with hypoxia ([facility]) Procedures Oxygen Therapy Edwige Delaney MD [address] [place] [address] Referral ID Status Reason Start Date Expiration Date V isits Requested Visits Authorized [id number] Pending Review 10/17/2023 10/16/2024 1 1 Specialty Diagnoses / Procedures Referred By Contac t Referred To Contact Diagnoses SOB (shortness of breath) Procedures Echo complete W/O contrast Edwige Delaney MD [address] [place] [address] [facility] [address] [place] [address] Phone: [phone] Referral ID Status Reason Start Date Expiration Date V isits Requested Visits Authorized [id number] Authorized 09/06/2023 12/04/2023 1 1 Additional Source Comments (unrecognized sect ion and content) No Status Records FoundNo Status Records FoundNo Status Records FoundNo Status Records FoundNo Status Records FoundNo Status Records Found INFORMATION SOURCE (unrecogn ized section and content) DATE CREATED AUTHOR 11/02/2017 [facility] DATE CREATED AUTHOR AUTHOR'S ORGANIZ ATION 05/31/2021 [facility] DATE CREATED AUTHOR AUTHOR'S ORGANIZ ATION 04/30/2022 [facility] DATE CREATED AUTHOR AUTHOR'S ORGANIZ ATION 01/01/2024 [facility] DATE CREATED AUTHOR AUTHOR'S ORGANIZ ATION 04/25/2024 [facility] DATE CREATED AUTHOR AUTHOR'S ORGANIZ ATION 05/02/2024 [facility] Care Team (unrecognized sect ion and content) Organizational Effectiveness Director Relationship Specialty Start Date End Date Marzena Mccord APRN-CNP [address] [facility] [place] [address] PCP - General Family Medicine 08/09/23 Organizational Effectiveness Director Relationship Specialty Start Date End Date Marzena Mccord APRN-CNP [address] [facility], [place] [address] PCP - General Family Medicine 08/09/23 Organizational Effectiveness Director Relationship Specialty Start Date End Date Marzena Mccord APRN-CNP [address] [facility] [place] [address] PCP - General Family Medicine 08/09/23 Organizational Effectiveness Director Relationship Specialty Start Date End Date Marzena Mccord APRN-CNP [address] [facility], [place] [address] PCP - General Family Medicine 08/09/23 Organizational Effectiveness Director Relationship Specialty Start Date End Date Marzena Mccord APRN-CNP [address] [facility], [place] [address] PCP - General Family Medicine 08/09/23 Organizational Effectiveness Director Relationship Specialty Start Date End Date Marzena Mccord APRN-CNP [address] [facility], [place] [address] PCP - General Family Medicine 08/09/23 Organizational Effectiveness Director Relationship Specialty Start Date End Date Marzena Mccord APRN-CNP [address] [facility], [place] [address] PCP - General Family Medicine 08/09/23 Organizational Effectiveness Director Relationship Specialty Start Date End Date Marzena Mccord APRN-CNP [address] [facility], [place] [address] PCP - General Family Medicine 08/09/23 Organizational Effectiveness Director Relationship Specialty Start Date End Date Marzena Mccord APRN-CNP [address] [facility], [place] [address] PCP - General Family Medicine 07/18/18 Organizational Effectiveness Director Relationship Specialty Start Date End Date Marzena cMcord APRN-CNP [address] [facility], [place] [address] PCP - General Family Medicine 08/09/23 Organizational Effectiveness Director Relationship Specialty Start Date End Date Marzena Mccord APRN-CNP [address] [place] [address] PCP - General Family Medicine 08/09/23 Organizational Effectiveness Director Relationship Specialty Start Date End Date Marzena Mccord APRN-CNP [address] [facility], [place] [address] PCP - General Family Medicine 08/09/23 Organizational Effectiveness Director Relationship Specialty Start Date End Date Marzena MccordTREVIN-REFINERY OPERATOR [address] [facility], [place] [address] PCP - General Family Medicine 08/09/23 Reason [...] Gastroenterology Diagnoses Hepatic steatosis Edwige Delaney MD [address] [place] [address] [address] [place] [address] Narciso Longoria MD [address] [place] [address], [address] [place] [address] Referral ID Status Reason Start Date Expiration Date Visits Requested Visits Authorized [id number] Pending Review Specialty Services Required 10/10/2023 10/09/2024 1 1 Reason Comments Follow-up Shortness of Breath Still the same as fa r as sob goes -2L Cough Occasionally Wheezing Denies Reason Onset Date Comments Med Refill 01/02/2024 Reason Comments Follow-up Chronic respiratory failure with hypoxiaCT: 10/28/2023FT: MWT: 11/30/2023 Shortness of Breath Reason Comments Difficulty Swallowing Follow-up hepatic steatosis -i tchy all over Reason Comments Med Refill FOR RECORDS PERTAINING TO PATIENTS WHO ARE [...] BE BASED ON THE PRIMARY CLINICAL RECORDS. [facility]. provides no warranty or guarantee of the accuracy or completeness of information in this document.
--- OUTSIDE RECORDS SUMMARY | 2024-10-09 21:29 | XMS_ITS | Encounter Summary ---
Author Organization [facility] tem Address [id number] [address] [place] [address] Care Team Providers Care Hourly Sign Language Interpreter Name Role Phone Marzena Fong GHOST WRITER-PHOTOGRAPH FINISHER Primary Care Provider Reason for Referral * Consultation (Routine) - Pending Review Specialty Diagnoses / Procedures Referred By Raphael teixeira Referred To Contact Gastroenterology Diagnoses Hepatic steatosis Edwige Patel MD [address] [facility] [address] [place] [address] Phone: tel: fax: Narciso Longoria MD [address] [facility] [place] [address] Phone: tel: fax: Referral ID Status Reason Start Date Expiration Date Visits Requested Visits Authorized [id number] Pending Review Specialty Services Required 10/10/2023 10/09/2024 1 1 Encounter Details Date Type Department Care Team ([facility] Contact Info) Description 10/10/2023 Orders Only [facility] [address] [place] [phone] Shanti Liu, RN Hepatic steatosis (Primary Dx) Social History Tobacco Use Types Packs/Day Years Used Date Smoking Tobacco: Former Smokeless Tobacco: Never Alcohol Use Standard Drinks/Week Comments No 0 (1 standard drink = 0.6 oz pur e alcohol) [facility] Utilities Answer Date Recorded In the [...] [facility] [address] [place] [address] Edwige Patel MD [address] [facility] [address] [place] [address] Scheduled Referrals Name Type Priority Associated Diagnoses Order Schedule Ambulatory referral to Gastroenterology ([facility]) Outpatient Referral Routine Hepatic steatosis 1 Occurrences starting 10/10/2023 until 10/09/2024 documented as of this encounter Goals Goal Patient Goal Type Associated Problems Recent Progress Patient-Stated? Author home with self care General Yes Lian Reyes, RN Note: Evaluation of progress towards goal: home documented as of this encounter Visit Diagnoses Diagnosis Hepatic steatosis- Primary Other chronic nonalcoholic liver disease documented in this encounter Care Teams Hourly Sign Language Interpreter Relationship Specialty Start Date End Date Marzena Fong, GHOST WRITER-PHOTOGRAPH FINISHER [address] [place] [address] PCP - General Family Medicine 08/09/23 documented as of this encounter
--- OUTSIDE RECORDS SUMMARY | 2024-10-09 21:29 | XMS_ITS | Encounter Summary ---
Author Organization [facility] Address [id number] [address] [place] [address] Care Team Providers Care Manager Maritime Name Role Phone Marzena Fong RIG SUPERVISOR-FINANCE ASSOCIATE Primary Care Provider Reason for Visit * Reason Comments Med Refill Encounter Details Date Type Department Care Team (Late st Contact Info) Description 09/12/2021 Refill [facility] [address] [facility] [place] [address] Lizette Green, RIG SUPERVISOR-FINANCE ASSOCIATE [address] [place] [address], [address] [place] [address] Chronic obstructive pulmonary disease, unspecified COPD type ([facility]) Social History Tobacco Use Types Packs/Day Years [...] Orientation Straight 08/09/2023 9: 00 PM EDT COVID-19 Exposure Response Date Recorded In the last 10 days, have yo u been in contact with someone who was confirmed or suspected to have Coronavirus/COVID-19? No / Unsure 08/14/2021 9:58 AM EDT documented as of this encounter Plan of Treatment Upcoming Encounters Date Type Department Care Team ([facility] st Contact Info) Description 11/05/2024 2:00 PM EDT Office Visit [facility] [address] [facility] [place] [address] Edwige Patel MD [address] [facility] [address] [place] [address] documented as of this encounter Visit Diagnoses Diagnosis Chronic obstructive pulmonary disease, unspecified COPD type (CMS-HCC) documented in this encounter Additional Health Concerns Infection Onset Date Last Indicated Resolved Time COVID-19 Rule-Out 08/09/2023 08/09/2023 08/09/2023 5:26 PM EDT documented as of this encounter Care Teams Manager Maritime Relationship Specialty Start Date End Date Marzena Fong, RIG SUPERVISOR-FINANCE ASSOCIATE [address] [facility] [place] [address] PCP - General Family Medicine 08/09/23 documented as of this encounter
--- OUTSIDE RECORDS SUMMARY | 2024-10-09 21:29 | XMS_ITS | Clinical Summary ---
Author Organization [facility] Healthcare Address [address] [place] [address] Care Team Providers Care Track Repairer Helper Name Role Phone Unavailable Primary Care Provider Unavailabl e Social History Tobacco Use Types Packs/Day Years Used Date Smoking Tobacco: Never Assessed Sex and Gender Information Value Date Recorded Sex Assigned at Not on file Legal Sex Male 7:40 PM EDT Gender Identity Not on file Sexual Orientation Not on file Last Filed Vital Signs Vital Sign Reading Time Taken Comments Blood Pressure - - Pulse - - Temperature - - Respiratory Rate - - Oxygen Saturation - - Inhaled Oxygen Concentration - - Weight 79.4 kg (175 lb) 03/17/2020 12:00 PM EST Height 165.1 cm (5' 5 ) 03/17/2020 12:00 PM EST Body Mass Index 29.12 03/17/2020 12:00 PM EST Plan of Treatment Not on file Insurance [employer]
--- OUTSIDE RECORDS SUMMARY | 2024-10-09 21:29 | XMS_ITS ---
Author Organization [employer] [facility] tem Address [id number] [place] [address] Care Team Providers Care It Professional Name Role Phone Marzena Fong VESSEL CREW MEMBER-PROGRAMS DIRECTOR Primary Care Provider Active Problems Problem Noted Date Diagnosed Date Benign prostatic hyperplasia with urinary obstru ction 08/09/2023 COPD exacerbation 08/09/2023 Hypothyroidism 08/09/2023 Shortness of breath 01/21/2017 Abnormal EKG 01/21/2017 Pulmonary hypertension 01/21/2017 Prostate cancer 07/27/2016 COPD (chronic obstructive pulmonary disease) Current Treatment and Therapy Plans No current plan information found. Past Treatment and Therapy Plans No past plan information found. Lifetime Dose Tracking * Chemical Lifetime Dose Automatic Entry Manual Entr y Fluoroscopy 3 mGy 3 mGy 0 mGy
--- OUTSIDE RECORDS SUMMARY | 2024-10-09 21:29 | XMS_ITS | Encounter Summary ---
Author Organization [employer] [facility] tem Address [id number] [address] [place] [address] Care Team Providers Care Marshmallow Machine Operator Name Role Phone Marzena Fong TREVIN-ACCOUNTING MANAGER CONTROLLER Primary Care Provider Reason for Referral * Misc (Routine) - Pending Review Specialty Diagnoses / Procedures Referred By Raphael teixeira Referred To Contact Diagnoses Chronic respiratory failure with hypoxia (CMS-HCC) Procedures Oxygen Therapy Edwige Patel MD [address] [facility] [address] [place] [address] Phone: tel: fax: Referral ID Status Reason Start Date Expiration Date V isits Requested Visits Authorized [id number] Pending Review 11/21/2023 11/20/2024 1 1 Encounter Details Date Type Department Care Team (Late st Contact Info) Description 11/21/2023 Orders Only [facility] [address] [id number] Shanti Liu RN Chronic respiratory failure with hypoxia (CMS-HCC) (Primary Dx) Social History Tobacco Use Types Packs/Day Years Used Date Smoking Tobacco: Former Smokeless Tobacco: Never Alcohol Use Standard Drinks/Week Comments No 0 (1 standard drink = 0.6 oz pur e alcohol) [facility] Utilities Answer Date Recorded In the [...] Visit [facility] [address] [place] [address] Edwige Patel MD [address] [facility] [address] [place] [address] documented as of this encounter Goals Goal Patient Goal Type Associated Problems Recent Progress Patient-Stated? Author home with self care General Yes Lian Reyes, RN Note: Evaluation of progress towards goal: home documented as of this encounter Visit Diagnoses Diagnosis Chronic respiratory failure with hypoxia (CMS-HCC)- Primary documented in this encounter Care Teams Marshmallow Machine Operator Relationship Specialty Start Date End Date Marzena Fong, SUPERVISORY FORESTER-ACCOUNTING MANAGER CONTROLLER [address] [place] [phone] PCP - General Family Medicine 08/09/23 documented as of this encounter
--- OUTSIDE RECORDS SUMMARY | 2024-10-09 21:29 | XMS_ITS | Encounter Summary ---
[facility] Address [id number] [address] [place] [address] Care Team Providers Care Ammonia Worker Name Role Phone Marzena Fong ANIMAL LABORATORY HELPER-SOLAR SALES ASSESSOR Primary Care Provider Encounter Details Date Type Department Care Team (Late st Contact Info) Description 11/24/2021 Telephone [facility] Pulmonary/Sleep Medicine [address] [place] [phone] Edwige Patel MD [address] [place] [address] Social History Tobacco Use Types Packs/Day Years [...] encounter Miscellaneous Notes * Telephone Encounter - Kellee Borja - 11/24/2021 2:01 PM EDT Patient's , Angie called, requesting a 3 month prescription of Symbicort to be called in to [facility] in [place] I did not see it on his medication list but she said that he was on it in the past and she called and she is currently on it as well and requested a refill on it, too * Telephone Encounter - Missy Packer LPN - 11/24/2021 2:01 PM EDT Left a message asking if Trelegy is what is needed to be sent in. * Telephone Encounter - Missy Packer LPN - 11/24/2021 2:01 PM EDT Angie called asking for Dank to be put back on Symbicort. Pharmacy: [facility] in [place] * Telephone Encounter - Edwige Patel MD - 11/24/2021 2:01 PM EDT Sent in Rx but unclear if it will be covered by insurance documented in this encounter Plan of Treatment Upcoming Encounters Date Type Department Care Team ([facility] st Contact Info) Description 11/05/2024 2:00 PM EDT Office Visit [facility] Pul[facility]/Sleep Medicine [address] [place] [address] Edwige Patel MD [address] [place] [address] documented as of this encounter Visit Diagnoses Not on filedocumented in this encounter Additional Health Concerns Infection Onset Date Last Indicated Resolved Time COVID-19 Rule-Out 08/09/2023 08/09/2023 08/09/2023 5:26 PM EDT documented as of this encounter Care Teams Ammonia Worker Relationship Specialty Start Date End Date Marzena Fong, ANIMAL LABORATORY HELPER-SOLAR SALES ASSESSOR [address] [place] [address] PCP - General Family Medicine 08/09/23 documented as of this encounter
--- OUTSIDE RECORDS SUMMARY | 2024-10-09 21:29 | XMS_ITS | Encounter Summary ---
Author Organization [facility] [email or web address] [facility] tem Address [id number] [address] [place] [address] Care Team Providers Care Catechist Name Role Phone Marzena Fong BRISTLE MACHINE OPERATOR-INTERNET E COMMERCE SPECIALIST Primary Care Provider Encounter Details Date Type Department Care Team (Late st Contact Info) Description 10/07/2020 Orders Only [facility] Cardiology [address] [place] [address] External, Scanning Provider Social History Tobacco Use Types Packs/Day Years [...] Exposure Response Date Recorded In the last month, have you been in contact with someone who was confirmed or suspected to have Coronavirus / COVID-19? Unable to assess 10/08/2020 9:02 AM EDT documented as of this encounter Plan of Treatment Upcoming Encounters Date Type Department Care Team (Late st Contact Info) Description 11/05/2024 2:00 PM EDT Office Visit [facility]/Sleep [facility] [address] [place] [address] Edwige Patel MD [address] [place] [address] documented as of this encounter Procedures Procedure Name Priority Date/Time Associated Diagnosis Comments MULTIPLE LABS Routine 06/04/2020 XR CHEST 1 VW Routine 06/02/2020 CT CTA CHEST Routine 05/30/2020 XR CHEST 1 VW Routine 05/25/2020 ECG 12-LEAD Routine 05/25/2020 documented in this encounter Results * Multiple labs (06/04/2020) us Scanning Provider External HI IMAGING Final Result Performing Organization Address [facility] Co de Phone Number MANUALLY TRANSCRIBED RESULTS * X-ray chest 1 view (06/02/2020) Anatomical Region Laterality Modality Body, Chest N/A Computed Radiogr aphy us Scanning Provider External IMG DIAGNOSTIC IMAGIN G ORDERABLES Final Result * CT angiogram chest (05/30/2020) Anatomical Region Laterality Modality Lung, Body, Chest, Vascular, Body Covera N/A Computed Tomography us Scanning Provider External IMG CT ORDERABLES Fin al Result * X-ray chest 1 view (05/25/2020) Anatomical Region Laterality Modality Body, Chest N/A Computed Radiogr aphy us Scanning Provider External IMG DIAGNOSTIC IMAGIN G ORDERABLES Final Result * ECG 12 lead (05/25/2020) us Scanning Provider External ECG ORDERABLES Final Result Performing Organization Address [facility] Co de Phone Number MANUALLY TRANSCRIBED RESULTS documented in this encounter Visit Diagnoses Not on filedocumented in this encounter Additional Health Concerns Infection Onset Date Last Indicated Resolved Time COVID-19 Rule-Out 08/09/2023 08/09/2023 08/09/2023 5:26 PM EDT documented as of this encounter Care Teams Catechist Relationship Specialty Start Date End Date Marzena Fong, BRISTLE MACHINE OPERATOR-INTERNET E COMMERCE SPECIALIST [address] [place] [address] PCP - General Family Medicine 08/09/23 documented as of this encounter
--- OUTSIDE RECORDS SUMMARY | 2024-10-09 21:29 | XMS_ITS | Encounter Summary ---
Author Organization [facility] Sys tem Address [id number] [address] [place] [address] Care Team Providers Care Cotton Expert Name Role Phone Marzena Fong BUSINESS JOB TITLES-ADMIN ASST Primary Care Provider Encounter Details Date Type Department Care Team (Late st Contact Info) Description 08/02/2023 Orders Only [facility] Pul[facility]/Sleep Medicine [address] [place] [phone] Shanti Liu, RN SOB (shortness of breath) (Primary Dx) Social History Tobacco Use Types [...] Office Visit [facility] [address] [place] [phone] Edwige Patel MD [address] [address] [facility] [address] [facility] [place] [address] documented as of this encounter Results * X-ray chest 2 views (08/02/2023 2:04 PM EDT) Anatomical Region Laterality Modality Chest N/A Computed Radiogr aphy 08/02/2023 4:00 PM EDT Narrative 08/02/2023 4:01 PM EDT PA and lateral chest: HISTORY: Shortness of breath. 2 views of the chest are obtained. Cardiac and mediastinal contours are within normal limits. Lungs are clear. There is no vascular congestion or effusion. Osseous structures appear intact. No pneumothorax identified. IMPRESSION: No acute findings. Finalized by Renaldo Goodwin MD on 08/02/2023 4:01 PM Procedure Note Renaldo Goodwin MD - 08/02/2023 PA and lateral chest: HISTORY: Shortness of breath. 2 views of the chest are obtained. Cardiac and mediastinal contours arewithin normal limits. Lungs are clear. There is no vascular congestion oreffusion. Osseous structures appear intact. No pneumothorax identified. IMPRESSION: No acute findings. Finalized by Renaldo Goodwin MD on 08/02/2023 4:01 PM Edwige Patel MD IMG DIAGNOSTIC IMAGING ORD ERABLES Final Result documented in this encounter Visit Diagnoses Diagnosis SOB (shortness of breath)- Primary Shortness of breath SOB (shortness of breath) Shortness of breath documented in this encounter Additional Health Concerns Infection Onset Date Last Indicated Resolved Time COVID-19 Rule-Out 08/09/2023 08/09/2023 08/09/2023 5:26 PM EDT documented as of this encounter Care Teams Cotton Expert Relationship Specialty Start Date End Date Marzena Fong, BUSINESS JOB TITLES-ADMIN ASST [address] [place] [address] PCP - General Family Medicine 08/09/23 documented as of this encounter
--- OUTSIDE RECORDS SUMMARY | 2024-10-09 21:29 | XMS_ITS | Encounter Summary ---
Author Organization [facility] Sys tem Address [id number] [address] [place] [address] Care Team Providers Care Power Brake Rebuilder Name Role Phone Marzena Fong EDITOR TRADE JOURNAL-DIP STAND LOADER Primary Care Provider Encounter Details Date Type Department Care Team (Late st Contact Info) Description 10/27/2023 Telephone [facility] Pul[facility]/Sleep Medicine [address] [place] [phone] Shanti Liu, RN Social History Tobacco Use Types Packs/Day Years Used Date Smoking Tobacco: Former Smokeless Tobacco: Never Alcohol Use Standard Drinks/Week Comments No 0 (1 standard drink = 0.6 oz pur e alcohol) [facility] Utilities Answer Date Recorded In the [...] Telephone Encounter - Shanti Liu RN - 10/27/2023 11:12 AM EDT Pt called asking for refill Prednisone 5 mg, 3 month supply if possible. * Telephone Encounter - Edwige Patel MD - 10/27/2023 11:12 AM EDT Ok to send * Telephone Encounter - Shanti Liu RN - 10/27/2023 11:12 AM EDT Rx sent documented in this encounter Plan of Treatment Upcoming Encounters Date Type Department Care Team (Late st Contact Info) Description 11/05/2024 2:00 PM EDT Office Visit [facility]Sleep [facility] [address] [place] [address] Edwige Patel MD [address] [facility] [address] [place] [address] documented as of this encounter Goals Goal Patient Goal Type Associated Problems Recent Progress Patient-Stated? Author home with self care General Yes Lian Reyes, RN Note: Evaluation of progress towards goal: home documented as of this encounter Visit Diagnoses Not on filedocumented in this encounter Care Teams Power Brake Rebuilder Relationship Specialty Start Date End Date Marzena Fong APRN-DIP STAND LOADER [address] [place] [address] PCP - General Family Medicine 08/09/23 documented as of this encounter
--- OUTSIDE RECORDS SUMMARY | 2024-10-09 21:29 | XMS_ITS ---
Author Organization [facility] Address [address] [place], [place] [address] Care Team Providers Care Conduit Reamer Operator Name Role Phone Blayne Marion MD Primary Care Provider [phone] Active Problems Problem Noted Date Diagnosed Date History of prostate cancer 06/08/2017 Prostate cancer 07/27/2016 Current Treatment and Therapy Plans No current plan information found. Past Treatment and Therapy Plans No past plan information found. Treatment Summaries Prostate cancer (HCC)* Treatment Summary and Survivorship Care Plan for Prostate Cancer Provided by: Rosa Elena Trujillo APRN.LINE ERECTOR General Information Patient Name: Dank Barahona Patient : 1940 Patient phone: Health Care Providers Primary Care Provider: Dr. Sagar Do Urologic Surgeon: Dr. Bigg Duncan Radiation Oncologist: Dr. Tereso Franz Other Providers: Rosa Elena Trujillo APRN.LINE ERECTOR Treatment Summary Diagnosis Cancer Type: Adenocarcinoma of the prostate Location: Left apex; Right lateral apex Diagnosis Date (year): June 29, 2016 Histology Subtype: Prostate Cancer Stage:IIA Clinical stage T2a N0 M0 [place] Score: 7 (3+4); 6 (3+3) PSA at Diagnosis: 8.08 May 17, 2016 Clinical Trial: No Treatment Completed Surgery: Yes Surgery Date(s) (year): June 29, 2016 Surgical procedure/location/findings: Transrectal ultrasound biopsy; Left apex, right lateral apex;adenocarcinoma of the prostate External beam radiation: Yes Pelvis: Yes: End Date (year): September 13, 2016 (August 10, 2016 through September 13, 2016) 4,500 cGy in 25 fractions Brachytherapy to prostate: Yes: End Date (year): October 14, 2016 58 seeds Systemic Therapy (chemotherapy, hormonal therapy, other): No Presistent symptoms or side effects at completion of treatment: No Sexual dysfunction- Prior to treatment Follow-up Care Plan Schedule of clinical visits Coordinating Provider When/How often Dr. Tereso Franz Every 6 months ??2 years, then once yearly Dr. Bigg Duncan Per Dr. Duncan Cancer surveillance or other recommended related tests Coordinating Provider Test How Often Dr. Parul Franz PSA (Prostate Specific Antigen) Every 6 months ??2 years, then once yearly Dr. Bigg Duncan PSA (Prostate Specific Antigen) Per Dr. Duncan Please continue to see your primary care provider for all general health care recommended for a (man) (women) your age, including cancer screening tests. Any symptoms should be brought to the attention of your provider: 1. Anything that represents a brand new symptom; 2. Anything that represents a persistent symptom; 3. Anything you are worried about that might be related to the cancer coming back. Possible late- and long-term effects that someone with this type of cancer and treatment may experience: Erectile dysfunction, Fatigue, Incontinence, Painful urination, Rectal pain, Shortening of thepenis, Skin irritation or darkening, Sterility, Tirdness, Trouble voiding or passing uring (urinaryretention) and Urinary frequency Cancer survivors may experience issues with the areas listed below. If you have any concerns in these or other areas, please speak with your doctors or nurses to find out how you can get help with them: anxiety or depression , emotional or mental health, fatigue, fertility, financial advice or assistance, insurance, memory or concentration loss, parenting, physicial functioning, school/work and sexual functioning A number of lifestyle/behaviors can affect your ongoing health, including the risk for the cancer coming back or developing another cancer. Discuss these recommendations with your doctor or nurse: alcohol use, diet, management of medications, management of other illnesses, physical activity, sun screen use, tobacco use/cessation and weight management (loss/gain) Resources you may be interested in: www.cancer.net Vehicle Body Builder Office Equipment Technician Art Therapy PSA (Prostate Cancer Support Group) meets the tuesday of every month, from 2 PM to 3 PM, at [address] [place] [address] Dr., [place] Prepared by: Rosa Elena Trujillo APRN.LINE ERECTOR Delivered on: December 07, 2017 - This Survivorship Care Plan is a cancer treatment summary and follow-up plan is provided to you to keep with your health care records and to share with your primary care provider. - This summary is a brief record of major aspects of your cancer treatment. You can share your copywith any of your doctors or nurses. However, this is not a detailed or comprehensive record of yourcare.
[2024-10-09] MEDS: HYDROCODONE/ACET 5-325 MG TABLET 1 TAB PO (21:40)
[2024-10-09] MEDS: DEXAMETHASONE SOD PHOS 10 MG/ML VIAL IM (21:41)
[2024-10-09] MEDS: ORPHENADRINE 60 MG/2 ML VIAL 30 MG IM (21:41)
[2024-10-09] MEDS: ONDANSETRON 4 MG RAPDIS TABLET SL (22:14)
[2024-10-09] MEDS: MORPHINE SULFATE 4 MG/ML VIAL IM (22:14)
[2024-10-09] MEDS: OXYCODONE HCL/ACETAMINOPHEN 5MG/325MG PO (23:01)
[2024-10-09 23:03] VITALS: PULSE 84; O2SAT 95
== END 2024-10-09 23:07 | disposition home or self-care (01) ==
PROVIDERS: Emergency Provider Emergency Medicine; PCP Family Medicine
DX: M54.2 Cervicalgia (principal); M62.838 Other muscle spasm; Z87.891 Personal history of nicotine dependence
CPT/HCPCS: 72125; 96372; 99285; J1100; J2270; J2360; Q0162

== ENCOUNTER 2024-12-11 10:24 | Outpatient (OUT) | payer MEDICARE, SELFPAY ==
--- OUTSIDE RECORDS SUMMARY | 2024-10-19 09:30 | XMS_ITS ---
Author Organization [facility] [place] Address [address] [place] [address] Care Team Providers Care Boat Crew Deck Hand Name Role Phone Marzena Fong Primary Care Provider REASON FOR VISIT 6mon Encounters Encounter Location Date Provider Diagnosis [facility] [address] [place] [address] 10/19/2024 Marzena Fong Plan Of Treatment No Information Progress Notes * ANABELDank TDOB:[birth year] (83 yo M)Acc No.[id number]:10/19/2024 UNLOCKED PROGRESS NOTE Progress Note Patient: Dank FELICIANO Provider: Donna Fong CNP (TTC) :1940 A ge:83 Y S ex:Male Date:10/19/2024 Address:[address] [place], [place] [id number] Subjective: * Chief Complaints: * 1 . 6mon. * Medical History: Objective: * Vitals: Assessment: Plan: * Treatment: * * Electronic signature of Shameka Pugh NP, WEB PRESS OPERATOR HELPER [email or web address] on 12/11/2024 at 10:34 AM EDT Sign off status: Pending Visit Status: C ANC (Cancelled) * Provider: Donna CYR)DEB Date: 0 10/19/2024 Generated for Printi ng/Faxing/eTransmitting on: 0 12/11/2024 10:34 AM EDT
--- OUTSIDE RECORDS SUMMARY | 2024-10-26 06:30 | XMS_ITS ---
Author Organization [facility] Address [address] [place] [address] Care Team Providers Care Consulting Senior Practice Director Name Role Phone Blayne Marion Primary Care Provider Candis López Unavailable [phone] JAMAL GARZON, NARENDRANATH Unavailable Un available REASON FOR VISIT LUMBAR RECHECK Encounters Encounter Location Date Provider Diagnosis [facility] [address] [place] [address] [place] [address] 10/26/2024 Candis Hart Plan Of Treatment Next Appt Details Provider Name:Candis Bender Andrae kaur, 01/31/2025 11:00:00 AM, [address] [place] [address], [phone], Progress Notes * MICHAEL LITTLE TDOB:[birth year] (83 yo M)Acc No.[id number]:10/26/2024 Patient: Luann MICHAEL NEVAREZ Provider: Luann Portillo MD, PhD :1940 A ge:83 Y S ex:Male Date:10/26/2024 Phone: Address:[address] [place] [address] [address], [place], [phone] Pcp:Blayne Marion Subjective: * Chief Complaints: * 1 . LUMBAR RECHECK. * Medical History: Objective: * Vitals: Assessment: Plan: * Treatment: Forms: * Images: * Electronic signature of Sy Hart MD, PHD on 12/11/2024 at 10:34 AM EDT Sign off status: Pending * Provider: Luann Portillo MD, PhD Date: 0 10/26/2024 Generated for Uriel roberts/Ivy/Davion on: 0 12/11/2024 10:34 AM EDT
--- OUTSIDE RECORDS SUMMARY | 2024-10-29 07:49 | XMS_ITS ---
Author Organization [facility] [place] Address [address] [place] [address] Care Team Providers Care J2Ee Software Engineer Name Role Phone Marzena Fong Primary Care Provider [phone] REASON FOR VISIT MRI denied -LMTCB Encounters Encounter Location Date Provider Diagnosis [facility] [address] [place] [address] 10/29/2024 Marzena Fong Plan Of Treatment No Information Progress Notes * Dank BARAHONA TDOB:[birth year] (83 yo M)Acc No.[id number]:10/29/2024 Patient: Dank FELICIANO Aleks :1940 A ge:83 Y S ex:Male Address:[address] [place] [address] [address] , [place] [address] * true * Date: Generated for Uriel roberts/Ivy/eTransmitting on: 0 12/11/2024 10:33 AM EDT
--- OUTSIDE RECORDS SUMMARY | 2024-11-23 06:55 | XMS_ITS ---
Author Organization [facility] [place] Address [address] [place] [address] Care Team Providers Care Jailor Name Role Phone Marzena Fong Primary Care Provider REASON FOR VISIT handicap placard Encounters Encounter Location Date Provider Diagnosis [facility] [address] [place] [address] 11/23/2024 Marzena Fong Plan Of Treatment No Information Progress Notes * Dank BARAHONA TDOB:[birth year] (83 yo M)Acc No.[id number]:11/23/2024 Patient: Dank FELICIANO :1940 A ge:83 Y S ex:Male Address:[address] [place] [address] [address] , [place] [address] Subjective: * Chief Complaints: * H andicap placard * Medical History: * Surgical History: * Hospitalization/Major Diagno stic Procedure: * Medications: Objective: * Vitals: * Physical Examination: Assessment: Plan: * Treatment: * Procedure Codes: * true * Date: Generated for Printi ng/Faxing/eTransmitting on: 0 12/11/2024 10:34 AM EDT
--- OUTSIDE RECORDS SUMMARY | 2024-12-11 10:34 | XMS_ITS | Patient Health Record ---
Author Organization [facility] Address [address] [place] [address] Care Team Providers Care Manager Review Name Role Phone Blayne Marion Primary Care Provider Unavailstephanie e aCndis Hart Unavailable [phone] JAMAL GARZON, KAREN Unavailable Un available Shabbir Castelan Unavailable [phone] Kiran Wyatt Unavailable [phone] Kylah Nicholas Unavailable [phone] Allergies No Known Allergies Results Component Value Reference Range Notes Surgery Scheduling (Not yet reviewed by provider) Interpretation: Performing Lab: Notes/Report: Primary Insurance Company: MEDICARE ANTHCALLY Surgeon/Assist: ST CASE/SHABBIR OR KIRAN Surgery Location: [facility] Surgery Date & Time: 08/10/24 @ 7:30AMM Hosp arrival time day of: 6:30AM Surgery End Time: 9:00AM Procedure: L5-S1 DECOMPRESSION AND FUSION Special Equipment: SSEP, PRONE, KARINA TABLE, SURGALIGN Diagnosis: M48.07 STENOSIS Admission Type: OUTPATIENT Anesthesia Type/CPNB: GENERAL Post-op Appointment Date: 09/21/24 @ 10:30AM THOR Latex Allergy NO Lab Location: [facility] Lab Date/Time: 07/27/24 @ 12:30PM [employer] Supervisor: KELLY Person Physician: TERRI MCCORD CLEARED 05/14/24 Clearance Appt Date/T DR DELANEY History & Physical Appointme nt Date/: 08/03/24 @ 12:10PM LEAH Surgery Scheduling (Not yet reviewed by provider) Interpretation: Performing Lab: Notes/Report: Primary Insurance Company: MEDICARE MATEO Surgeon/Assist: ST CASE/SHABBIR OR KIRAN Surgery Location: [facility] Surgery Date & Time: 05/16/24 @ 8:30AM Hosp arrival time day of: 5:30AM Surgery End Time: 10AM Procedure: L5-S1 DECCOMPRESSION AND FUSION Special Equipment: SSEP, PRONE, KARINA TABLE, MEDTRONIC Diagnosis: M48.07 LUMBAR STENOSIS Admission Type: OUTPATIENT Anesthesia Type/CPNB: GENERAL Bed 48 HOURS Post-op Appointment Date: 06/29/24 @ 11:20AM TULLY Lab Location: [facility] Lab Date/Time: ON OR BEFORE 04/25/24 [employer] Supervisor: KELLY Clearance Physician: TERRI MCCORD 04/30/24 1PM Clearance Appt Date/T PULMONARY DR ANALISA ESCOBAR 04/30/24 @ 3PM History & Physical Appointme nt Date/: 05/11/24 @ 11:30AM TULLY Reason For Referral Reason APPROVED............ ................NOT SCHEDULED...................................[facility]O [facility] MRI LUMBAR TO BE DONE AT [facility] Diagnosis 1 Spondylolisthesis, l umbosacral region (M43.17) Referral Organization [facility] Referring Provider First Name Kiran Referring Provider Last Name Yoselin Referring Provider Speciality Physician Privacy Attorney Referred Organization [facility] Referred Address [place], [place], Procedure 1 MRI Lumbar Spine w/o Dye (46152) General Notes Kelly Krueger 2024 01:35:21 PM >Dom Kayla 05/11/2024 01:50:58 PM > MATEO ACTIVE AND EFFECTIVE 05/09/24 PER AIM. AUTHORIZATION REQUEST SUBMITTED VIA [facility], CASE # [id number] FORWARDED TO [facility] FOR FACILITY REVIEW [facility] IS COMING UP OUT OF NETWORK WITH PATIENT'S PLAN. THIS IS AN AIM/CARELON PROBLEM.Dom Kayla 05/14/2024 12:03:53 PM > SUBMITTED AUTHORIZATION REQUEST AGAIN VIA AIM SINCE THEY'RE GOTTEN THINGS SORTED OUT. AUTHORIZATION # [id number] APPROVED AND VALID 05/14/24-4/5/25 PER AIM. SCANNED INTO CHART AND FAXED TO [facility].Breanna Sara 05/14/2024 04:30:31 PM > faxed Referral Priority Routine Reason APPROVED OUTPATIENT...................................08/10/24............................. 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) Referra l [facility] Referri ng Provide r First Name Annaliliam Referri ng Provide r Last Name [facility] Case Referri ng Provide r Special ity Orthopedic Surgery Referre d [facility] Referre d Address [address] [place], [place],[address], Procedu re 1 Arthrodesis, posterior lumbar, 1 lumbar level (47788) Procedu re 2 Laminectomy, facetectomy and foraminotom y single lumbar (70465) Procedu re 3 Laminectomy, facetectomy and foraminotom y additional vertebral segment (38085) Procedu re 4 Posterior non-segmental instrumentation (86537) Procedu re 5 Autograft for spine surgery only; local obtained from same incision () General Notes Kelly Krueger 04/17/2024 10:10:25 AM >, Vania Fernandes 04/17/2024 02:02:08 PM > MATEO SHOWING TERMS 05/08/24 PER AIM. UNABLE TO START AUTHORIZATION UNTIL THE BEGINNING OF THE YEAR ONCE POLICY UPDATES IN [facility]., Vania Fernandes 05/08/2024 09:46:56 AM > [place] [address] PER AIM. AUTHORIZATION REQUEST SUBMITTED WITH CLINICALS VIA [facility], PENDING CASE # [id number] WITH ANTICIPATED DETERMINATION DATE OF 05/18/24. PER [facility] the member's plan will not allow the use of an OON provider without network review by the health plan. After medical necessity review is complete, cases which meet clinical criteria will be sent to the health plan for further review. CASE WILL TAKE LONGER TO REVIEW AND PATIENT WILL LIKELY NEED TO GET RESCHEDULED., Vania Fernandes 05/10/2024 05:51:43 AM > RECEIVED VOICEMAIL FROM FLORENTIN (?) AT [facility] STATING THAT GUIDELINES REQUIRE AN MRI TO BE COMPLETED WITHIN THE LAST 12 MONTHS AND LAST MRI WAS DONE IN FEBRUARY OF 2023. AN UPDATED MRI WILL NEED TO BE OBTAINED BEFORE THEY'LL APPROVE SURGERY., Kelly Krueger 05/14/2024 08:46:34 AM >SURGERY CANCELLED DUE TO NEED FOR UPDATED MRI AND CARDIAC CLEARANCE, Vania Fernandes 05/14/2024 08:48:57 AM > NOTED, MARKING REFERRAL ADDRESSED FOR TIME BEING, Kelly Krueger 06/29/2024 12:32:14 PM >NOT AVAILABLE ON 07/26 SON WILL BE GONE AND NO TRANSPORTATION, Kelly Krueger 07/04/2024 04:10:36 PM >PATIENT BACK ON THE SURGERY SECHEDULE FOR 08/10 IN [facility] LARES Kayla 07/09/2024 08:38:20 AM > NOTED, NO AUTHORIZATION REQUIRED FOR PER [facility]. AUTHORIZATION REQUEST SUBMITTED OUTPATIENT VIA [facility] DUE TO NONE OF THE PROVIDED CODES BEING ON THE MEDICARE INPATIENT LIST, PENDING AUTHORIZATION # [id number] WITH ANTICIPATED DETERMINATION DATE OF 07/19/24. CLINICALS FAXED TO [facility] @ [phone] FILE KEPT FAILING TO UPLOAD ON PORTAL., Vania Fernandes 07/11/2024 09:21:24 AM > PENDING, Vania Fernandes 07/13/2024 12:19:27 PM > AUTHORIZATION # [id number] APPROVED OUTPATIENT AND VALID 08/10/24-11/07/24 PER AIM. SCANNED INTO CHART. PLEASE SWITCH TO OUTPATIENT AND SEND BACK SO I CAN FAXED TO [facility].Evans Dawn 07/16/2024 12:15:07 PM >CHANGED TO OUTPATIENT AND SCHEDULE OUTPATIENT, Vania Fernandes 07/16/2024 12:23:28 PM > THANK YOU, FAXED TO [facility]. Referra l Rachelet y Routine Medications Medication SIG (Take, Route, Fr equency, Duration) Notes Start Date End Date Status Flexeril 10 mg 1 tab(s) orally 3 ti mes a day prn muscle spasms 08/06/2024 Active PreserVision AREDS 2 Active Breztri Aerosphere A ctive Albuterol Sulfate Ac tive Prednisone 5 mg 1 tab(s) Acti ve HYDROXINE Active gabapentin 100 mg 1 cap(s) Ac tive pantoprazole 20 mg 1 tab(s) A ctive tamsulosin 0.4 mg 1 cap(s) Ac tive Social History Tobacco Use: Social History Observation Description Date Details (start date - stop date) Former Smoker NA - NA AUDIT-C (Standard) Question Answer Notes Did you have a drink containing alcohol in the p ast year? 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) Active confirmed Vital Signs Height 5 ft 5 in in 02/10/2024 Weight 174 lbs 02/10/2024 BMI 28.95 02/10/2024 Encounters Encounter Location Date Provider Diagnosis [address] [place] [address] 02/10/2024 Kiran Wyatt Spondylolisthesis, lumbosacral region M43.17 ; Degeneration of intervertebral disc of lumbosacral region with discogenic back pain and lower extremity pain M51.372 ; Spinal stenosis, lumbosacral region M48.07 and Other spondylosis with radiculopathy, lumbar region M47.26 [facility] [address] [place] [address] 05/11/2024 Selvon Hailey Spondylolisthesis, lumbosacral region M43.17 ; Spinal stenosis, lumbosacral region M48.07 and Degeneration of intervertebral disc of lumbosacral region with discogenic back pain and lower extremity pain M51.372 [facility] [address] [place] [address] 06/29/[place] Degeneration of intervertebral disc of lumbosacral region with discogenic back pain and lower extremity pain M51.372 ; Spondylolisthesis, lumbosacral region M43.17 ; Spinal stenosis, lumbosacral region M48.07 and Other spondylosis with radiculopathy, lumbar region M47.26 [facility] [address] [place] [address] 08/03/2024 Kiran Diglio Spinal stenosis, lumbosacral region M48.07 ; Degeneration of intervertebral disc of lumbosacral region with discogenic back pain and lower extremity pain M51.372 and Spondylolisthesis, lumbosacral region M43.17 [facility] [address] [facility] [address] 08/10/2024 Selvon Hailey Spinal stenosis, lumbosacral region M48.07 ; Degeneration of intervertebral disc of lumbosacral region with discogenic back pain and lower extremity pain M51.372 and Spondylolisthesis, lumbosacral region M43.17 [facility] [address] [place] [address] 09/21/2024 Kiran Wyatt Aftercare following surgery of the musculoskeletal system Z47.89 [facility] [address] [place] [address] 11/02/2024 Shabbir Castelan Aftercare following surgery of the musculoskeletal system Z47.89 [facility] [address] [place] [address] 05/08/2024 Candis Bender Clair [facility] [address] [place] [address] 08/21/2024 Candis Hart Aftercare following surgery of the musculoskeletal system Z47.89 Assessments Encounter Date Diagnosis (ICD Code) Assessment Notes Treatment Notes Treatment Clinical Notes Section Notes 02/10/2024 Degeneration of intervertebral disc of lumbosacral region with discogenic back pain and lower extremity pain (ICD-10 - M51.372) 1. L5-S1 spondylolisthesi s, grade 1 and degenerative disc disease with neuroforaminal stenosis and radiculopathy 2. Chronic bilateral L5 spondylolysis 05/11/2024 Spondylolisthesis, lumbosacral region (ICD-10 - M43.17) 05/11/2024 Spinal stenosis, lumbosacral region (ICD-10 - M48.07) 02/10/2024 Spondylolisthesis, lumbosacral region (ICD-10 - M43.17) 1. L5-S1 spondylolisthesi s, grade 1 and degenerative disc disease with neuroforaminal stenosis and radiculopathy 2. Chronic bilateral L5 spondylolysis 06/29/2024 Spondylolisthesis, lumbosacral region (ICD-10 - M43.17) 1. L5-S1 spondylolisthesi s, grade 1 and degenerative disc disease with neuroforaminal stenosis and radiculopathy 2. Chronic bilateral L5 spondylolysis 06/29/2024 Degeneration of intervertebral disc of lumbosacral region with discogenic back pain and lower extremity pain (ICD-10 - M51.372) 1. L5-S1 spondylolisthesi s, grade 1 and degenerative disc disease with neuroforaminal stenosis and radiculopathy 2. Chronic bilateral L5 spondylolysis 08/03/2024 Spinal stenosis, lumbosacral region (ICD-10 - M48.07) 08/03/2024 Degeneration of intervertebral disc of lumbosacral region with discogenic back pain and lower extremity pain (ICD-10 - M51.372) 08/10/2024 Spinal stenosis, lumbosacral region (ICD-10 - M48.07) 08/21/2024 Aftercare following surgery of the musculoskeletal system (ICD-10 - Z47.89) 09/21/2024 Aftercare following surgery of the musculoskeletal system (ICD-10 - Z47.89) 1. 6-week status post L5-S1 decompression and fusion 2. Bilateral feet numbness 11/02/2024 Aftercare following surgery of the musculoskeletal system (ICD-10 - Z47.89) 1. 3 months status post L5-S1 decompression and fusion 08/10/2024 Degeneration of intervertebral disc of lumbosacral region with discogenic back pain and lower extremity pain (ICD-10 - M51.372) 08/03/2024 Spondylolisthesis, lumbosacral region (ICD-10 - M43.17) 02/10/2024 Spinal stenosis, lumbosacral region (ICD-10 - M48.07) 1. L5-S1 spondylolisthesi s, grade 1 and degenerative disc disease with neuroforaminal stenosis and radiculopathy 2. Chronic bilateral L5 spondylolysis 06/29/2024 Spinal stenosis, lumbosacral region (ICD-10 - M48.07) 1. L5-S1 spondylolisthesi s, grade 1 and degenerative disc disease with neuroforaminal stenosis and radiculopathy 2. Chronic bilateral L5 spondylolysis 05/11/2024 Degeneration of intervertebral disc of lumbosacral region with discogenic back pain and lower extremity pain (ICD-10 - M51.372) 06/29/2024 Other spondylosis with radiculopathy, lumbar region (ICD-10 - M47.26) 1. L5-S1 spondylolisthesi s, grade 1 and degenerative disc disease with neuroforaminal stenosis and radiculopathy 2. Chronic bilateral L5 spondylolysis 02/10/2024 Other spondylosis with radiculopathy, lumbar region (ICD-10 - M47.26) 1. L5-S1 spondylolisthesi s, grade 1 and degenerative disc disease with neuroforaminal stenosis and radiculopathy 2. Chronic bilateral L5 spondylolysis 08/10/2024 Spondylolisthesis, lumbosacral region (ICD-10 - M43.17) 02/10/2024 Other Plan established by Dr. Portillo. Patient seen and evaluated by Dr. Portillo today. MRI imaging of the lumbar spine was reviewed and discussed with the patient. He is recommending a L5-S1 decompression and fusion. Risk, benefits and alternatives to surgery were discussed. Patient has tried and failed conservative treatment medication management, physical therapy and epidural steroid injections and would like to proceed with surgery. We will have him medically cleared prior to proceeding with surgery. We will then see him back in our office at a later date for a preoperative history and physical to discuss surgery in further detail pending medical clearance. The patient is very much in agreement with the treatment and/or diagnostic plan set forth and all questions were answered to the patient's satisfaction. Thanks once again. If we can be of further service to your patients with disorders of the spine, cervical, thoracic, or lumbar, please do not hesitate to contact Dr. Portillo. Best regards, 1. L5-S1 spondylolisthesi s, grade 1 and degenerative disc disease with neuroforaminal stenosis and radiculopathy 2. Chronic bilateral L5 spondylolysis 06/29/2024 Other Plan established by Dr. Portillo. At this time, Dr. Portillo discussed MRI results with the patient. New MRI of his lumbar spine does not reveal any other significant changes. It was discussed with the patient that we will go forward with the L5-S1 decompression and fusion as planned. It was discussed with patient that fusion is necessary due to the fact that total facetecetomy's would need to be performed In order to free up the foraminal stenosis. This would lead to instability requiring a fusion. Patient wishes to proceed with scheduled. We will get this scheduled. The patient is very much in agreement with the treatment and/or diagnostic plan set forth and all questions were answered to the patient's satisfaction. Thanks once again. If we can be of further service to your patients with disorders of the spine, cervical, thoracic, or lumbar, please do not hesitate to contact Dr. Portillo. Best regards, 1. L5-S1 spondylolisthesi s, grade 1 and degenerative disc disease with neuroforaminal stenosis and radiculopathy 2. Chronic bilateral L5 spondylolysis 09/21/2024 Other Plan established by Dr. Portillo. Patient seen and evaluated by Dr. Portillo today. He is okay to start to increase his activity as tolerated has no set restrictions. He can also discontinue his back brace. Patient advised numbness and tingling can take the longest to improve and may be residual despite surgery. We will see him back in 6 weeks for a 3-month lumbar recheck. The patient is very much in agreement with the treatment and/or diagnostic plan set forth and all questions were answered to the patient's satisfaction. Thanks once again. If we can be of further service to your patients with disorders of the spine, cervical, thoracic, or lumbar, please do not hesitate to contact Dr. Portillo. Best regards, 1. 6-week status post L5-S1 decompression and fusion 2. Bilateral feet numbness 11/02/2024 Other Plan established by Dr. Portillo. At this time, patient is doing well from surgery. Will see the patient back in the office in 3 months. The patient is very much in agreement with the treatment and/or diagnostic plan set forth and all questions were answered to the patient's satisfaction. Thanks once again. If we can be of further service to your patients with disorders of the spine, cervical, thoracic, or lumbar, please do not hesitate to contact Dr. Portillo. Best regards, 1. 3 months status post L5-S1 decompression and fusion Plan Of Treatment Pending Test Test Name Order Date Lumbar spine, 4v flex ext - 26001 2023 Lumbar spine 2v ap and lat - 01916 09/21 Lumbar spine 2v ap and lat - 31113 11/02 Walker w/ Wheels OTS 08/03/2024 Surgery Scheduling 04/17/2024 Surgery Scheduling 07/10/2024 DME - Lumbar Support, Surgical OTS 05/11 DME - Lumbar Support, Surgical OTS 08/03 MRI : Lumbosacral Spine W/O Contrast - 7 2148 02/10/2024 Future Test Test Name Order Date Chest 2 views - 45939 04/17/2024 CBC 04/17/2024 PT/PTT 04/17/2024 BMP 04/17/2024 MRSA (Bilateral Nares) PCR 04/17/2024 EKG 04/17/2024 Chest 2 views - 03666 07/10/2024 CBC 07/10/2024 PT/PTT 07/10/2024 BMP 07/10/2024 MRSA (Bilateral Nares) PCR 07/10/2024 Next Appt Details Provider Name:Candis Bender Andrae , 01/31/2025 11:00:00 AM, [address] [place] [address], [phone], Insurance Providers Payer Name Payer Address Payer Phone Subscriber Number Group Number Insured Name Patient Relationship to Insured Coverage Start Date Coverage End Date Medicare [employer] Advantage [address] [place] [address] [id number] MSMICHAEL RUBALCAVA Self - patient is the insured Medical (General) History Medical History History ICD Code Lung Disease Emphysema Thyroid disease Gastric Reflux Cancer, prostate Surgical History Surgery Date(Month/Year) L5-S1 laminectomy, PSF 08/2024 Shoulder 11/1984
--- OUTSIDE RECORDS SUMMARY | 2024-12-11 10:34 | XMS_ITS | Patient Health Record ---
Author Organization [facility] in [place] Address [address] [place] [address] Care Team Providers Care Gang Hemstitching Machine Operator Name Role Phone Marzena Mccord Primary Care Provider [phone] [phone] Allergies No Known Allergies Results Component Value Reference Range Notes COVID-19, Flu A+B IH Reviewed date:09/03/2024 07:33:17 PM Interpretation: Performing Lab: Notes/Report: COVID neg FLU A neg FLU B neg Control present MR lumbar spine wo con Reviewed date:05/22/2024 10:37:22 AM Interpretation: Performing Lab: Notes/Report: Source Facility: [place] [address] Magnetic Resonance Report Signed Patient: MICHAEL BARAHONA MR#: [id number] : 1940 Acct:[id number] Age/Sex: 83 / M ADM Date: 05/21/24 Loc: MRI Attending Dr: Kiran SEGURA Ordering Physician: Kiran Wyatt Date of Service: 05/21/24 Procedure(s): MR lumbar spine wo con Accession Number(s): [id number] cc: MARZENA MCCORD ; Kiran Wyatt [place] [address] Patient Name: MICHAEL BARAHONA MRN: [id number] date: 1940 Sex: M Assigned Patient Location: MRI Current Patient Location: MRI Accession/Order Number: [id number] Exam Date: 05/21/2024 13:00 Report Date: 05/21/2024 15:16 At the request of: KIRAN WYATT Procedure: MR lumbar spine wo con EXAMINATION: MR lumbar spine wo con HISTORY: spondyloisthesis, lumbosacral region COMPARISON: No relevant comparison available. TECHNIQUE: A variety of imaging planes and parameters were utilized for visualization of suspected pathology. FINDINGS: For the purposes of numbering, sagittal T2 image # 8 extends from the T11 vertebral body superiorly to the S2 level inferiorly. PARASPINAL AREA: Normal with no visible mass. BONES: Stable 1.1 cm anterolisthesis of L5 on S1 CORD/CAUDA EQUINA: Normal caliber, contour, and signal intensity. DISC LEVELS: 12-L1: No significant disc/facet abnormality, spinal stenosis, or foraminal stenosis. L1-L2: No significant disc/facet abnormality, spinal stenosis, or foraminal stenosis. L2-L3: No significant disc/facet abnormality, spinal stenosis, or foraminal stenosis. L3-L4: No significant disc/facet abnormality, spinal stenosis, or foraminal stenosis. L4-L5: No significant disc/facet abnormality, spinal stenosis, or foraminal stenosis. L5-S1: 1.1 cm anterolisthesis of L5 on S1 with bilateral pars interarticularis fractures. Severe disc space narrowing. Severe bilateral foraminal stenosis with no central canal stenosis MR/MR lumbar spine wo con IMPRESSION: Stable 1.1 cm anterolisthesis of L5 on S1 with severe bilateral foraminal stenosis Electronically authenticated by: ALEXEY MICHELLE Date: 05/21/2024 15:16 Dictated By: Alexey Michelle M.D. Signed By: 05/21/24 1519 DD/ 1516 TD/TT: Math And Physics Instructor: [place] [address] Magnetic Resonance Report Signed Patient: SURYA BARAHONA MR#: [id number] : 1940 Acct:[id number] Age/Sex: 83 / M ADM Date: 05/21/24 Loc: MRI Attending Dr: Kiran SEGURA Ordering Physician: Kiran Wyatt Date of Service: 05/21/24 Procedure(s): MR lum bar spine wo con Accession Number(s): [id number] cc: MARZENA MCCORD ; Kiran Wyatt [place] [address] Patient Name: MICHAEL BARAHONA MRN: [id number] date: 1940 Sex: M Assigned Patient Location: MRI Current Patient Loca tion: MRI Accession/Order Numb er: [id number] Exam Date: 05/21/2024 13:00 Report Date: 05/21/2024 15:16 At the request of: KIRAN WYATT Procedure: MR lumbar spine wo con EXAMINATION: MR lumb ar spine wo con HISTORY: spondyloisthesis, lumbosacral region COMPARISON: No relev ant comparison available. TECHNIQUE: A variety of imaging planes and parameters were utilized for visualization of suspected pathology. FINDINGS: For the purposes of numbering, sagittal T2 image # 8 extends from the T11 vertebral body super iorly to the S2 level inferiorly. PARASPINAL AREA: Nor mal with no visible mass. BONES: Stable 1.1 cm anterolisthesis of L5 on S1 CORD/CAUDA EQUINA: N ormal caliber, contour, and signal intensity. DISC LEVELS: 12-L1: No significan t disc/facet abnormality, spinal stenosis, or foraminal stenosis. L1-L2: No significan t disc/facet abnormality, spinal stenosis, or foraminal stenosis. L2-L3: No significan t disc/facet abnormality, spinal stenosis, or foraminal stenosis. L3-L4: No significan t disc/facet abnormality, spinal stenosis, or foraminal stenosis. L4-L5: No significan t disc/facet abnormality, spinal stenosis, or foraminal stenosis. L5-S1: 1.1 cm anterolisthesis of L5 on S1 with bilateral pars interarticularis fractures. Severe di sc space narrowing. Severe bilateral foraminal stenosis with no central celina l stenosis M R/MR lumbar spine wo con IMPRESSION: Stable 1.1 cm anterolisthesis of L5 on S1 with severe bilateral foraminal stenosis Electronically authenticated by: ALEXEY MICHELLE Date: 05/21/2024 15:16 Dictated By: Derrick Michelle M.D. Signed By: 05/21/241518 DD/ 15 TD/TT: Math And Physics Instructor: PTT Reviewed date:07/30/2024 10:52:41 AM Interpretation: Performing Lab: Notes/Report: [facility] , Partial Thromboplastin Time 31.4 22.3-36.2 sec Performing Lab: see note ML - [facility] LB Type and Screen Reviewed date:07/30/2024 10:52:41 AM Interpretation: Performing Lab: Notes/Report: Spec expiration changed by [facility] on 07/27/24 Reason: Surgery on 08/10/[address] [facility] , Blood Type A Positive Antibody Screen NEGATIVE XR lumbar spine 2-3V Reviewed date:08/12/2024 09:39:42 PM Interpretation: Performing Lab: Notes/Report: Source Facility: [place] [address] [place] [address] XRay Report Signed Patient: MICHAEL BARAHONA MR#: [id number] : 1940 Acct:[id number] Age/Sex: 83 / M ADM Date: 08/10/24 Loc: SURGOUT Attending Dr: Villa Portillo M.D. Ordering Physician: Villa Portillo M.D. Date of Service: 08/10/24 Procedure(s): XR lumbar spine 2-3V Accession Number(s): [id number] cc: MARZENA MCCORD ; Villa Portillo M.D. [place] [id number] Patient Name: MICHAEL BARAHONA MRN: [id number] date: 1940 Sex: M Assigned [facility] Current Patient Location: [facility] Accession/Order Number: [id number] Exam Date: 08/10/2024 10:36 Report Date: 08/10/2024 10:41 At the request of: VILLA PORTILLO MD Procedure: XR lumbar spine 2-3V PORTABLE LUMBAR SPINE - 1view COMPARISON: 02/12/2024 and MRI 05/21/2024 CLINICAL DATA: Intraoperative localization for lumbosacral fusion A single lateral prone view of the lumbar spine was obtained in the operating room following surgery. This demonstrates new laminectomy and fusion with posterior rods and pedicle screws at the lumbosacral junction. There is continued lumbosacral spondylolisthesis of approximately 12 mm. There is disc space narrowing at that level. There is also still minimal retrolisthesis of L4 and L5. XR/XR lumbar spine 2-3V IMPRESSION: INTERVAL LUMBOSACRAL DECOMPRESSION AND FUSION Impression dictated by: Vicky Bonner M.D.08/10/2024 10:41 AM Dictation Location: [place] [address] Electronically authenticated by: [id number] Y Date: 08/10/2024 10:41 Dictated By: Vicky Bonner M.D. Signed By: 08/10/24 1044 DD/ 1041 TD/TT: Math And Physics Instructor: [place] [address] XRay Report Signed Patient: SURYA BARAHONA MR#: [id number] : 1940 Acct:[id number] Age/Sex: 83 / M ADM Date: 08/10/24 Loc: SURGOUT Attending Dr: Villa Portillo M.D. Ordering Physician: Villa Portillo M.D. Date of Service: 08/10/24 Procedure(s): XR lum bar spine 2-3V Accession Number(s): [id number] cc: MARZENA MCCORD ; Villa Portillo M.D. [place] [id number] Patient Name: MICHAEL BARAHONA MRN: [id number] date: 1940 Sex: M Assigned Patient Location: [facility] Current Patient Loca tion: SURGOUT Accession/Order Numb er: [id number] Exam Date: 08/10/2024 10:36 Report Date: 08/10/2024 10:41 At the request of: VILLA PORTILLO MD Procedure: XR lumbar spine 2-3V PORTABLE LUMBAR SPIN E - 1view COMPARISON: and MRI 05/21/2024 CLINICAL DATA: Intraoperative localization for lumbosacral fusion A single lateral pro ne view of the lumbar spine was obtained in the operating room following surge ry. This demonstrates new laminectomy and fusion with posterior rods and pedicle screws at the lumbosacral junction. There is continued lumbosacra l spondylolisthesis of approximately 12 mm. There is disc space narrowing at t hat level. There is also still minimal retrolisthesis of L4 and L5. X R/XR lumbar spine 2-3V IMPRESSION: INTERVAL LUMBOSACRAL DECOMPRESSION AND FUSION Impression dictated by: Vicky Bonner M.D.08/10/2024 10:41 AM Dictation Location: [place] [address] Electronically authenticated by: [id number] Y Date: 08/10/2024 10:41 Dictated By: Vicky Bonner M.D. Signed By: 08/10/24 1044 DD/ 1041 TD/TT: Math And Physics Instructor: CBC AUTO DIFF Reviewed date:08/12/2024 03:53:49 PM Interpretation: Performing Lab: Notes/Report: [facility] , White Blood Count 16.9 4.0-11.0 10 3/uL Red Blood Count 3.82 4.70-6.10 10 6/uL Hemoglobin 12.4 14.0-18.0 g/dL Hematocrit 37.2 42.0-54.0 % Mean Corpuscular Volume 97.4 80.0-94.0 fL Mean Corpuscular Hemoglobin 32.5 25.9-34.0 pg Mean Corpuscular HGB Conc 33.3 29.9-35.2 g/dL Red Cell Distribution Width 13.2 11.0-15.0 % Platelet Count 271 150-450 10 3/uL Mean Platelet Volume 10.1 9.5-13.5 fL Neutrophils Percent Auto 87.0 43.0-75.0 % Lymphocytes Percent Auto 4.4 20.5-60.0 % Monocytes Percent Auto 7.6 1.7-12.0 % Eosinophils Percent Auto 0.0 0.9-7.0 % Basophils Percent Auto 0.1 0.2-2.0 % Immature Granulocytes Pct Auto 0.9 0.0-0.5 % Neutrophils Absolute Auto 14.7 1.4-6.5 10 3/uL Lymphocytes Absolute Auto 0.8 1.2-3.8 10 3/uL Monocytes Absolute Auto 1.3 0.3-0.8 10 3/uL Eosinophils Absolute Auto 0.0 0.0-0.7 10 3/uL Basophils Absolute Auto 0.0 0.0-0.1 10 3/uL Immature Granulocytes Abs Auto 0.15 0.00-0.03 10 3/uL Performing Lab: see note - [facility] LB PROF 14(COMP METB) Reviewed date:09/03/2024 07:33:17 PM Interpretation: Performing Lab: Notes/Report: [facility] , Sodium 141 136-145 mmol/L Potassium 3.8 3.5-5.1 mmol/L Chloride 105 98-107 mmol/L Carbon Dioxide 26.6 21.0-32.0 mmol/L Anion Gap 13.2 Glucose 104 74-106 mg/dL Blood Urea Nitrogen 14.0 7.0-18.0 mg/dL Creatinine 0.90 0.70-1.30 mg/dL Estimated GFR ( Kacie >60 >=60 mL/min/1.73m 2 Estimated GFR (Non- Noemi >60 >=60 mL/min/1.73m 2 BUN Creatinine Ratio 15.6 Calcium 9.0 8.5-10.1 mg/dL Bilirubin Total 0.6 0.2-1.0 mg/dL Aspartate Amino Transferase 23 15-37 U/L Alanine Aminotransferase 23 16-63 U/L Alkaline Phosphatase 74 46-116 U/L Total Protein 6.7 6.4-8.2 g/dL Albumin Level 3.6 3.4-5.0 g/dL Globulin 3.1 Albumin Globulin Ratio 1.2 Performing Lab: see note ML - [facility] LB Troponin I High Sensitivity Reviewed date:09/03/2024 07:33:17 PM Interpretation: Performing Lab: Notes/Report: [facility] , Troponin I High Sensitivity 8.2 4.0-76.1 pg/mL CUT-OFF POINTS HAVE BEEN ESTABLISHED BASED ON THE FOURTH UNIVERSAL DEFINITION OF MYOCARDIAL INFARCTION. THE UPPER REFERENCE LIMIT (URL) OF TROPONIN, DEFINED THE 99TH PERCENTILE OF cTnI DISTRIBUTION IN A REFERENCE POPULATION, HAS BEEN CONFIRMED THE DECISION THRESHOLD FOR IN DIAGNOSIS. 99TH PERCENTILE = 76.2 PG/ML NOTE: HIGH-SENSITIVITY TROPONIN ASSAY IS NOT INTENDED TO BE USED IN ISOLATION BUT SHOULD BE INTERPRETED IN CONJUNCTION WITH OTHER DIAGNOSTIC AND CLINICAL INFORMATION. Performing Lab: see note - [facility] LB Prothrombin Time INR Reviewed date:09/03/2024 07:33:17 PM Interpretation: Performing Lab: Notes/Report: [facility] , Prothrombin Time 11.9 9.0-11.6 sec INR 1.14 DESIRED INR: 2.0-3.0 CONDITIONS NOT LISTED BELOW 2.5-3.5 FOR PROSTHETIC HEART VALVE REPLACEMENT 2.5-3.5 RECURRENT THROMBOSIS Performing Lab: see note - [facility] LB CBC AUTO DIFF Reviewed date:09/03/2024 07:33:17 PM Interpretation: Performing Lab: Notes/Report: [facility] , White Blood Count 6.8 4.0-11.0 10 3/uL Red Blood Count 3.62 4.70-6.10 10 6/uL Hemoglobin 11.5 14.0-18.0 g/dL Hematocrit 35.1 42.0-54.0 % Mean Corpuscular Volume 97.0 80.0-94.0 fL Mean Corpuscular Hemoglobin 31.8 25.9-34.0 pg Mean Corpuscular HGB Conc 32.8 29.9-35.2 g/dL Red Cell Distribution Width 13.5 11.0-15.0 % Platelet Count 292 150-450 10 3/uL Mean Platelet Volume 9.4 9.5-13.5 fL Neutrophils Percent Auto 78.9 43.0-75.0 % Lymphocytes Percent Auto 9.4 20.5-60.0 % Monocytes Percent Auto 10.0 1.7-12.0 % Eosinophils Percent Auto 0.9 0.9-7.0 % Basophils Percent Auto 0.4 0.2-2.0 % Immature Granulocytes Pct Auto 0.4 0.0-0.5 % Neutrophils Absolute Auto 5.4 1.4-6.5 10 3/uL Lymphocytes Absolute Auto 0.6 1.2-3.8 10 3/uL Monocytes Absolute Auto 0.7 0.3-0.8 10 3/uL Eosinophils Absolute Auto 0.1 0.0-0.7 10 3/uL Basophils Absolute Auto 0.0 0.0-0.1 10 3/uL Immature Granulocytes Abs Auto 0.03 0.00-0.03 10 3/uL Performing Lab: see note - [facility] LB PROF CHEM 8 (BAS METB) Reviewed date:08/12/2024 09:39:42 PM Interpretation: Performing Lab: Notes/Report: [facility] , Sodium 141 136-145 mmol/L Potassium 3.9 3.5-5.1 mmol/L Chloride 105 98-107 mmol/L Carbon Dioxide 27.4 21.0-32.0 mmol/L Anion Gap 12.5 Glucose 116 74-106 mg/dL Blood Urea Nitrogen 17.0 7.0-18.0 mg/dL Creatinine 1.01 0.70-1.30 mg/dL Estimated GFR ( Kacie >60 >=60 mL/min/1.73m 2 Estimated GFR (Non- Noemi >60 >=60 mL/min/1.73m 2 BUN Creatinine Ratio 16.8 Calcium 8.2 8.5-10.1 mg/dL Performing Lab: see note ML - [facility] LB CBC AUTO DIFF Reviewed date:08/12/2024 03:53:49 PM Interpretation: Performing Lab: Notes/Report: [facility] , White Blood Count 8.9 4.0-11.0 10 3/uL Red Blood Count 3.18 4.70-6.10 10 6/uL Hemoglobin 10.3 14.0-18.0 g/dL Hematocrit 31.0 42.0-54.0 % Mean Corpuscular Volume 97.5 80.0-94.0 fL Mean Corpuscular Hemoglobin 32.4 25.9-34.0 pg Mean Corpuscular HGB Conc 33.2 29.9-35.2 g/dL Red Cell Distribution Width 13.5 11.0-15.0 % Platelet Count 192 150-450 10 3/uL Mean Platelet Volume 10.0 9.5-13.5 fL Neutrophils Percent Auto 76.6 43.0-75.0 % Lymphocytes Percent Auto 8.5 20.5-60.0 % Monocytes Percent Auto 13.0 1.7-12.0 % Eosinophils Percent Auto 0.9 0.9-7.0 % Basophils Percent Auto 0.3 0.2-2.0 % Immature Granulocytes Pct Auto 0.7 0.0-0.5 % Neutrophils Absolute Auto 6.8 1.4-6.5 10 3/uL Lymphocytes Absolute Auto 0.8 1.2-3.8 10 3/uL Monocytes Absolute Auto 1.2 0.3-0.8 10 3/uL Eosinophils Absolute Auto 0.1 0.0-0.7 10 3/uL Basophils Absolute Auto 0.0 0.0-0.1 10 3/uL Immature Granulocytes Abs Auto 0.06 0.00-0.03 10 3/uL Performing Lab: see note - [facility] PROF CHEM 8 (BAS METB) Reviewed date:08/12/2024 09:39:42 PM Interpretation: Performing Lab: Notes/Report: [facility] , Sodium 142 136-145 mmol/L Potassium 4.3 3.5-5.1 mmol/L Chloride 105 98-107 mmol/L Carbon Dioxide 25.0 21.0-32.0 mmol/L Anion Gap 16.3 Glucose 111 74-106 mg/dL Blood Urea Nitrogen 14.0 7.0-18.0 mg/dL Creatinine 1.21 0.70-1.30 mg/dL Estimated GFR ( Kacie >60 >=60 mL/min/1.73m 2 Estimated GFR (Non- Noemi 57 >=60 mL/min/1.73m 2 BUN Creatinine Ratio 11.6 Calcium 8.5 8.5-10.1 mg/dL Performing Lab: see note - [facility] LB MRSA Screening Culture Reviewed date:07/30/2024 10:52:41 AM Interpretation: Performing Lab: Notes/Report: [facility] , MRSA Screening Culture See Below For Report MRSA Screening Culture MRSA Screening Culture Negative MRSA Screening Culture MRSA Screening [facility] Scre[facility] Culture MRSA Screening Culture [address] [place], [place] [id number] MRSA Screening Culture MRSA Screening Culture Refinery Process Engineer: Nigel Faustin PhD, Phone: [phone] MRSA Screening Culture Performing Lab: see note - [facility] LB SEE REPORT - Combined Rail Operator Id information not found for OBX-specific event producer legend Manual Differential Reviewed date:07/30/2024 10:52:41 AM Interpretation: Performing Lab: Notes/Report: [facility] , Segmented Neutrophils % Manual 77.0 43.0-75.0 Band Neutrophils % 2.0 0-5 % Lymphocytes Percent Manual 10.0 20.5-60.0 % Monocytes Percent Manual 9.0 1.7-12.0 % Eosinophils Percent Manual 2.0 0.9-7.0 % Basophils Percent Manual 0.0 0.2-2.0 % Segmented Neut Absolute Manual 7.39 1.4-6.5 10 3/uL Band Neutrophils Absolute 0.2 0.0-0.3 10 3/uL Lymphocytes Absolute Manual 0.96 1.20-3.80 10 3/uL Monocytes Absolute Manual 0.86 0.30-0 .80 10 3/uL Eosinophils Absolute Manual 0.19 0.00-0.70 10 3/uL Basophils Abs Manual 0.00 0.00-0.10 1 0 3/uL Performing Lab: see note - [facility] Prothrombin Time INR Reviewed date:07/30/2024 10:52:41 AM Interpretation: Performing Lab: Notes/Report: [facility] , Prothrombin Time 11.6 9.0-11.6 sec INR 1.11 DESIRED INR: 2.0-3.0 CONDITIONS NOT LISTED BELOW 2.5-3.5 FOR PROSTHETIC HEART VALVE REPLACEMENT 2.5-3.5 RECURRENT THROMBOSIS Performing Lab: see note - [facility] TSH Reviewed date:07/30/2024 10:52:41 AM Interpretation: Performing Lab: Notes/Report: [facility] , Thyroid Stimulating Hormone 3.554 0.358-3.740 uIU/mL Performing Lab: see note - [facility] LB T4 Reviewed date:07/30/2024 10:52:41 AM Interpretation: Performing Lab: Notes/Report: [facility] , T4 Thyroxine 6.90 4.50-12.10 ug/dL Performing Lab: see note - [facility] PROF CHEM 8 (BAS METB) Reviewed date:07/30/2024 10:52:41 AM Interpretation: Performing Lab: Notes/Report: [facility] , Sodium 137 136-145 mmol/L Potassium 4.4 3.5-5.1 mmol/L Chloride 102 98-107 mmol/L Carbon Dioxide 26.6 21.0-32.0 mmol/L Anion Gap 12.8 Glucose 112 74-106 mg/dL Blood Urea Nitrogen 17.0 7.0-18.0 mg/dL Creatinine 1.13 0.70-1.30 mg/dL Estimated GFR ( Kacie >60 >=60 mL/min/1.73m 2 Estimated GFR (Non- Noemi >60 >=60 mL/min/1.73m 2 BUN Creatinine Ratio 15.0 Calcium 9.1 8.5-10.1 mg/dL Performing Lab: see note ML - [facility] LB LIVER PROFILE Reviewed date:07/30/2024 10:52:41 AM Interpretation: Performing Lab: Notes/Report: [facility] , Bilirubin Total 0.9 0.2-1.0 mg/dL Bilirubin Direct 0.2 0.0-0.2 mg/dL Aspartate Amino Transferase 21 15-37 U/L Alanine Aminotransferase 32 16-63 U/L Alkaline Phosphatase 52 46-116 U/L Total Protein 7.4 6.4-8.2 g/dL Albumin Level 4.0 3.4-5.0 g/dL Globulin 3.4 Albumin Globulin Ratio 1.2 Performing Lab: see note ML - [facility] FREE T3 Reviewed date:07/30/2024 10:52:41 AM Interpretation: Performing Lab: Notes/Report: [facility] , Free T3 1.98 2.18-3.98 pg/mL Performing Lab: see note - [facility] CBC AUTO DIFF Reviewed date:07/30/2024 10:52:41 AM Interpretation: Performing Lab: Notes/Report: [facility] , White Blood Count 9.6 4.0-11.0 10 3/uL Red Blood Count 4.86 4.70-6.10 10 6/uL Hemoglobin 15.8 14.0-18.0 g/dL Hematocrit 46.2 42.0-54.0 % Mean Corpuscular Volume 95.1 80.0-94.0 fL Mean Corpuscular Hemoglobin 32.5 25.9-34.0 pg Mean Corpuscular HGB Conc 34.2 29.9-35.2 g/dL Red Cell Distribution Width 13.4 11.0-15.0 % Platelet Count 206 150-450 10 3/uL Mean Platelet Volume 9.8 9.5-13.5 fL Performing Lab: see note ML - [facility] LB CA echo doppler complete Reviewed date:06/08/2024 09:11:59 AM Interpretation: Performing Lab: Notes/Report: Source Facility: [facility] [place] [address] Cardiology Report Signed Patient: MICHAEL BARAHONA MR#: [id number] : 1940 Acct:[id number] Age/Sex: 83 / M ADM Date: 05/30/24 Loc: CARD Attending Dr: MARZENA MCCORD Ordering Physician: MARZENA MCCORD Date of Service: 05/30/24 Procedure(s): CA echo doppler complete Accession Number(s): [id number] cc: MARZENA MCCORD Patient Name: MICHAEL BARAHONA MR#: [id number] : 1940 Exam Date: 05/30/2024 Ordering Doctor: MARZENA MCCORD [facility] ECHOCARDIOGRAM REPORT PROCEDURE: CA ECHO DOPPLER COMPLETE INDICATIONS: Pre-op testing, chronic diastolic heart failure, pulmonary hypertension, COPD COMPARISON: None. DESCRIPTION: COMPLETE ECHOCARDIOGRAM Real-time transthoracic echocardiography with 2D, M-mode, spectral and color flow Doppler performed. QUALITY: Technical quality was good. LEFT VENTRICLE: Normal chamber size. Proximal septal hypertrophy (sigmoid septum). LV EF: Global left ventricular systolic function is normal; visually estimated ejection fraction is 55 to 60%. No wall motion abnormalities. DIASTOLIC: Diastolic function is indeterminate. ATRIAL SEPTUM: Visually appears intact. LEFT ATRIUM: Normal chamber size. RIGHT ATRIUM: Normal chamber size. RIGHT VENTRICLE: Normal chamber size. Normal right ventricular systolic function. TRICUSPID VALVE: Normal mobility and thickness. No stenosis with trivial regurgitation. Doppler studies reveal mildly (35-45) elevated right sided pressures. RVSP 43 mmHg MITRAL VALVE: Normal mobility and thickness. No evidence of mitral valve stenosis. There is no mitral annular calcification. No mitral regurgitation. AORTIC VALVE: Normal trileaflet appearance. Mildly calcified aortic valve. Normal leaflet mobility. No evidence of aortic valve stenosis. No aortic regurgitation. AORTIC ROOT: Normal diameter and appearance. Ascending aorta is normal in size. PULMONIC VALVE: Normal thickness and mobility. No stenosis. Mild regurgitation. PERICARDIUM: Anterior free space; trivial effusion versus fat pad. IVC: IVC is normal in size, does not fully collapse. PLEURA: CONCLUSION: 1. Global left ventricular systolic function is normal; visually estimated ejection fraction is 55 to 60% 2. Normal right ventricular size and systolic function 3. Diastolic function is indeterminate 4. The left atrium is normal in size 5. Mildly elevated right ventricular systolic pressure; RVSP 43 mmHg 6. Mild pulmonic regurgitation 7. Anterior free space; trivial effusion versus fat pad Adult Echocardiography Procedure Report Left Ventricle LVEDD (3.7 - 5.6 cm): 4.01 cm LVESD (2.2 - 4.0 cm): 2.51 cm LVIVS thickness (0.6 - 1.2 cm): 1.42 cm LVPW thickness (0.5 - 1.0 cm): 0.54 cm e': 0.07 m/s E - e': 12.40 LVOT Max Gradient: 1.79 mm[Hg] LVOT Area (cm2): 0.67 m/s Peak Velocity (LVOT): 0.67 m/s Mean Velocity (LVOT): 0.44 m/s LVOT Diameter 2.07 cm Left Atrium Left Atrium Systolic Dimension: 3.27 cm Mitral Valve MV E to A Ratio: 0.91 Mitral Valve A-Wave Peak Velocity: 0.91 m/s Mitral Valve E-Wave Peak Velocity: 0.83 m/s Right Ventricle Aorta AO Root Diam: 3.47 cm Ascending Ao Diam: 2.77 cm Aortic Valve AoV Area (Peak John): 2.32 cm2, 2.32 cm2 AoV Area (VTI): 2.42 cm2, 2.42 cm2 Peak Velocity(Antegrade Flow): 0.97 m/s Peak Gradient(Antegrade Flow): 3.77 mm[Hg] Mean Velocity(Antegrade Flow): 0.65 m/s Mean Gradient(Antegrade Flow): 1.93 mm[Hg] Velocity Time Integral: 23.77 cm Tricuspid Valve Peak Velocity (Regurgitant Flow): 2.95 m/s Pulmonic Valve Mean Gradient: 3.18 mm[Hg] Mean Velocity: 0.83 m/s Peak Velocity: 1.27 m/s, 1.26 m/s Peak Gradient: 6.39 mm[Hg], 6.48 mm[Hg] Right Atrium Right Atrium Systolic Pressure: 36.10 ml, 36.10 ml Dictated by: Leroy Thomas M.D. on 05/31/2024 at 12:40 Approved by: Leroy Thomas M.D. on 05/31/2024 at 12:44 Dictated By: Leroy Thomas M.D. Signed By: 05/31/24 1245 DD/ 1244 TD/TT: Math And Physics Instructor: [place] [address] Cardiology Report Signed Patient: SURYA BARAHONA RT T MR#: [id number] : 1940 Acct:[id number] Age/Sex: 83 / M ADM Date: 05/30/24 Loc: CARD Attending Dr: MARZENA MCCORD Ordering Physician: MARZENA MCCORD Date of Service: 05/30/24 Procedure(s): CA ech o doppler complete Accession Number(s): [id number] cc: MARZENA MCCORD Patient Name: MICHAEL BARAHONA MR#: [id number] : 1940 Exam Date: 05/30/2024 Ordering Doctor: TERRI MCCORD [facility] ECHOCARDIOGRAM REPORT PROCEDURE: CA ECHO DOPPLER COMPLETE INDICATIONS: Pre-op testing, chronic diastolic heart failure, pulmonary hypertension, COPD COMPARISON: None. DESCRIPTION: COMPLET E ECHOCARDIOGRAM Real-time transthoracic echocardiography wit h 2D, M-mode, spectral and color flow Doppler performed. QUALITY: Technical quality was good. LEFT VENTRICLE: Norm al chamber size. Proximal septal hypertrophy (sigmoid septum). LV EF: Global left ventricular systolic function is normal; visually estimated ejection fraction is 55 to 60%. No wall motion abnormalities. DIASTOLIC: Diastolic function is indeterminate. ATRIAL SEPTUM: Visua lly appears intact. LEFT ATRIUM: Normal chamber size. RIGHT ATRIUM: Normal chamber size. RIGHT VENTRICLE: Nor mal chamber size. Normal right ventricular systolic function. TRICUSPID VALVE: Nor mal mobility and thickness. No stenosis with trivial regurgitation. Doppl er studies reveal mildly (35-45) elevated right sided pressures. RVSP 43 mmHg MITRAL VALVE: Normal mobility and thickness. No evidence of mitral valve stenosis. There is n o mitral annular calcification. No mitral regurgitation. AORTIC VALVE: Normal trileaflet appearance. Mildly calcified aortic valve. Normal leaflet mobil ity. No evidence of aortic valve stenosis. No aortic regurgitation. AORTIC ROOT: Normal diameter and appearance. Ascending aorta is normal in size. PULMONIC VALVE: Norm al thickness and mobility. No stenosis. Mild regurgitation. PERICARDIUM: Anterio r free space; trivial effusion versus fat pad. IVC: IVC is normal i n size, does not fully collapse. PLEURA: CONCLUSION: 1. Global left ventricular systolic function is normal; visually estimated ejection fraction is 55 to 60% 2. Normal right ventricular size and systolic function 3. Diastolic functio n is indeterminate 4. The left atrium i s normal in size 5. Mildly elevated r ight ventricular systolic pressure; RVSP 43 mmHg 6. Mild pulmonic regurgitation 7. Anterior free spa ce; trivial effusion versus fat pad Adult Echocardiograp hy Procedure Report Left Ventricle LVEDD (3.7 - 5.6 cm) : 4.01 cm LVESD (2.2 - 4.0 cm) : 2.51 cm LVIVS thickness (0.6 - 1.2 cm): 1.42 cm LVPW thickness (0.5 - 1.0 cm): 0.54 cm e': 0.07 m/s E - e': 12.40 LVOT Max Gradient: 1 .79 mm[Hg] LVOT Area (cm2): 0.67 m/s Peak Velocity (LVOT) : 0.67 m/s Mean Velocity (LVOT) : 0.44 m/s LVOT Diameter 2.07 cm Left Atrium Left Atrium Systolic Dimension: 3.27 cm Mitral Valve MV E to A Ratio: 0.91 Mitral Valve A-Wave Peak Velocity: 0.91 m/s Mitral Valve E-Wave Peak Velocity: 0.83 m/s Right Ventricle Aorta AO Root Diam: 3.47 cm Ascending Ao Diam: 2 .77 cm Aortic Valve AoV Area (Peak John): 2.32 cm2, 2.32 cm2 AoV Area (VTI): 2.42 cm2, 2.42 cm2 Peak Velocity(Antegr esteban Flow): 0.97 m/s Peak Gradient(Antegr esteban Flow): 3.77 mm[Hg] Mean Velocity(Antegr esteban Flow): 0.65 m/s Mean Gradient(Antegr esteban Flow): 1.93 mm[Hg] Velocity Time Integr al: 23.77 cm Tricuspid Valve Peak Velocity (Regurgitant Flow): 2.95 m/s Pulmonic Valve Mean Gradient: 3.18 mm[Hg] Mean Velocity: 0.83 m/s Peak Velocity: 1.27 m/s, 1.26 m/s Peak Gradient: 6.39 mm[Hg], 6.48 mm[Hg] Right Atrium Right Atrium Systoli c Pressure: 36.10 ml, 36.10 ml Dictated by: Leroy Thomas M.D. on 05/31/2024 at 12:40 Approved by: Leroy Thomas M.D. on 05/31/2024 at 12:44 Dictated By: Leroy Thomas M.D. Signed By: 05/31/24 1245 DD/ 124 TD/TT: Math And Physics Instructor: ECG 12 lead Reviewed date:05/07/2024 08:31:27 AM Interpretation: Performing Lab: Notes/Report: Source Facility: [place] [address] Electrocardiograph Report Signed Patient: MICHAEL BARAHONA MR#: [id number] : 1940 Acct:[id number] Age/Sex: 83 / M ADM Date: 05/01/24 Loc: CARD Attending Dr: Kiran SEGURA Ordering Physician: Kiran Wyatt Date of Service: 05/01/24 Procedure(s): ECG 12 lead Accession Number(s): [id number] cc: [facility] Test Date: 2024-05-01 Pat Name: MICHAEL BARAHONA Department: Room: - Gender: Male Career Development Facilitator: : 1940 Requested By: MARZENA MCCORD Order Number: [id number] Reading MD: THOMAS ALAS Measurements Intervals [place] Rate: 72 P: 63 VA: 124 QRS: 58 QRSD: 85 T: 69 QT: 403 QTc: 442 Interpretive Statements SINUS RHYTHM Compared to ECG 05/25/2020 14:00:48 Sinus arrhythmia no longer present Electronically Signed On 05-02-2024 8:07:15 EST by THOMAS ALAS Dictated By: Thomas Alas D.O. Signed By: 05/02/24 0807 05/02/24 0807 DD/ 0755 TD/TT: Math And Physics Instructor: [place] [address] Electrocardiograph Report Signed Patient: SURYA BARAHONA MR#: [id number] : 1940 Acct:[id number] Age/Sex: 83 / M ADM Date: 05/01/24 Loc: CARD Attending Dr: Kiran SEGURA Ordering Physician: Kiran Wyatt Date of Service: 05/01/24 Procedure(s): ECG 12 lead Accession Number(s): [id number] cc: [facility] Test Date: 2024-05-01 Pat Name: MICHAEL MIRANDA Department: 73 Room: - Gender: Male Career Development Facilitator: : 1940 Requ ested By: MARZENA MCCORD Order Number: [id number] Reading MD: THOMAS ALAS Measurements Intervals [place] Rate: 72 P: 63 VA: 124 QRS: 58 QRSD: 85 T: 69 QT: 403 QTc: 442 Interpretive Statements SINUS RHYTHM Compared to ECG 05/25/2020 14:00:48 Sinus arrhythmia no longer present Electronically Vivienne d On 05-02-2024 8:07:15 EST by THOMAS ALAS Dictated By: Thomas Alas D.O. Signed By: 05/02/24 0807 05/02/24 0807 DD/ 0755 TD/TT: Math And Physics Instructor: XR chest 2V Reviewed date:05/01/2024 08:58:05 AM Interpretation: Performing Lab: Notes/Report: Source Facility: [place] [address] [place] [address] XRay Report Signed Patient: MICHAEL BARAHONA MR#: [id number] : 1940 Acct:[id number] Age/Sex: 83 / M ADM Date: 04/30/24 Loc: LAB Attending Dr: Kiran SEGURA Ordering Physician: Kiran Wyatt Date of Service: 04/30/24 Procedure(s): XR chest 2V Accession Number(s): [id number] cc: MARZENA MCCORD ; Kiran Wyatt [address] [address] Patient Name: MICHAEL BARAHONA MRN: [id number] date: 1940 Sex: M Assigned Patient Location: LAB Current Patient Location: LAB Accession/Order Number: [id number] Exam Date: 04/30/2024 10:05 Report Date: 04/30/2024 23:37 At the request of: KIRAN WYATT Procedure: XR chest 2V EXAMINATION: XR chest 2V HISTORY: Pre Surgical Evaluation COMPARISON: XR chest 06/02/2020 FINDINGS: LUNGS: Moderate chronic interstitial changes without appreciable acute infiltrates. Round circumscribed density projecting over left lung base suspected represent nipple shadow artifact, but chronic nodule cannot be excluded. VASCULATURE: No increased pulmonary vasculature. PLEURA: No pneumothorax, effusion, or pleural thickening. CARDIAC: No cardiomegaly or cardiac silhouette abnormality. MEDIASTINUM: No visible mass or adenopathy. BONES: No fracture or visible bone lesion. OTHER: Negative. XR/XR chest 2V IMPRESSION: 1. No appreciable acute cardiopulmonary process. 2. Grossly stable chronic interstitial changes. Electronically authenticated by: SHABBIR DALLAS Date: 04/30/2024 23:37 Dictated By: Shabbir [place] M.D. Signed By: 04/30/24 2348 DD/ 0590 TD/TT: Math And Physics Instructor: [place] [address] XRay Report Signed Patient: SURYA BARAHONA MR#: [id number] : 1940 Acct:[id number] Age/Sex: 83 / M ADM Date: 04/30/24 Loc: LAB Attending Dr: Kiran SEGURA Ordering Physician: Kiran Wyatt Date of Service: 04/30/24 Procedure(s): XR chest 2V Accession Number(s): [id number] cc: MARZENA MCCORD ; Kiran Wyatt [address] [address] Patient Name: MICHAEL BARAHONA MRN: [id number] date: 1940 Sex: M Assigned Patient Location: LAB Current Patient Loca tion: LAB Accession/Order Numb er: [id number] Exam Date: 10:05 Report Date: 04/30/2024 23:37 At the request of: KIRAN WYATT Procedure: XR chest 2V EXAMINATION: XR chest 2V HISTORY: Pre Surgica l Evaluation COMPARISON: XR chest 06/02/2020 FINDINGS: LUNGS: Moderate learning strategist fletcher interstitial changes without appreciable acute infiltrates. Round circumscribed density projecting over left lung base suspected represent nipple shadow artifact, but chronic nodule cannot be excluded. VASCULATURE: No incr eased pulmonary vasculature. PLEURA: No pneumotho rax, effusion, or pleural thickening. CARDIAC: No cardiome alphonse or cardiac silhouette abnormality. MEDIASTINUM: No visi ble mass or adenopathy. BONES: No fracture o r visible bone lesion. OTHER: Negative. X R/XR chest 2V IMPRESSION: 1. No appreciable ac [place] cardiopulmonary process. 2. Grossly stable ch ronic interstitial changes. Electronically authenticated by: SHABBIR DALLAS Date: 04/30/2024 23:37 Dictated By: Shabbir [place] M.D. Signed By: 04/30/24 1819 DD/ 2337 TD/TT: Math And Physics Instructor: MRSA Screening Culture Reviewed date:05/07/2024 08:31:27 AM Interpretation: Performing Lab: Notes/Report: [facility] , MRSA Screening Culture See Below For Report MRSA Screening Culture MRSA Screening Culture Negative MRSA Screening Culture MRSA Screening Culture Performed at: - [facility] [place] MRSA Screening Culture MRSA Screening Culture [address] [place], [place] [id number] MRSA Screening Culture MRSA Screening Culture Refinery Process Engineer: Nigel Faustin PhD, Phone: [phone] MRSA Screening Culture Performing Lab: see note LC - [facility] LB SEE REPORT - Combined Rail Operator Id information not found for OBX-specific event producer legend XR lumbar spine min 4V Reviewed date:02/13/2024 09:29:51 AM Interpretation: Performing Lab: Notes/Report: Source Facility: [facility] [place] [address] XRay Report Signed Patient: MICHAEL BARAHONA MR#: [id number] : 1940 Acct:[id number] Age/Sex: 83 / M ADM Date: 02/10/24 Loc: EC Attending Dr: Villa Portillo M.D. Ordering Physician: Villa Portillo M.D. Date of Service: 02/10/24 Procedure(s): XR lumbar spine min 4V Accession Number(s): [id number] cc: MARZENA MCCORD ; Villa Portillo M.D. [place] [address] Patient Name: MICHAEL BARAHONA MRN: [id number] date: 1940 Sex: M Assigned Patient Location: Current Patient Location: Accession/Order Number: [id number] Exam Date: 02/10/2024 11:05 Report Date: 02/12/2024 07:21 At the request of: VILLA PORTILLO Procedure: XR lumbar spine min 4V EXAMINATION: XR lumbar spine min 4V HISTORY: LUMBAR SPINE PAIN COMPARISON: XR L-spine 11/03/2021 FINDINGS: BONES: 21 mm anterior listhesis of L5 on S1 secondary to bilateral pars interarticularis defects. Mild degenerative facet arthropathy L3-L4, L4-L5. Mild bone encroachment on the neural foramen L2-L3 through L5-S1. Normal height and alignment of the remaining lumbar vertebral bodies. Multilevel prominent anterior endplate osteophytes. DISC SPACES: Moderate narrowing L5-S1. Normal height at remaining levels. PARASPINOUS: Negative. No paraspinous abnormality is seen. OTHER: Negative. XR/XR lumbar spine min 4V IMPRESSION: 1. 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 2. Multilevel mild degenerative changes. Electronically authenticated by: SHABBIR DALLAS Date: 02/12/2024 07:21 Dictated By: Shabbir [place] M.D. Signed By: 02/12/24722 DD/ 0 TD/TT: Math And Physics Instructor: [place] [address] XRay Report Signed Patient: SURYA BARAHONA MR#: [id number] : 1940 Acct:[id number] Age/Sex: 83 / M ADM Date: 02/10/24 Loc: EC Attending Dr: Villa Portillo M.D. Ordering Physician: Villa Portillo M.D. Date of Service: 02/10/24 Procedure(s): XR lum bar spine min 4V Accession Number(s): [id number] cc: MARZENA MCCORD ; Villa Portillo M.D. [place] [id number] Patient Name: MICHAEL BARAHONA MRN: [id number] date: 1940 Sex: M Assigned Patient Location: Current Patient Location: Accession/Order Numb er: [id number] Exam Date: 11:05 Report Date: 02/12/2024 07:21 At the request of: VILLA PORTILLO Procedure: XR lumbar spine min 4V EXAMINATION: XR lumb ar spine min 4V HISTORY: LUMBAR SPIN E PAIN COMPARISON: XR L-spi ne 11/03/2021 FINDINGS: BONES: 21 mm anterio r listhesis of L5 on S1 secondary to bilateral pars interarticularis def ects. Mild degenerative facet arthropathy L3-L4, L4-L5. Mild bone encroachme nt on the neural foramen L2-L3 through L5-S1. Normal height and alignment of the remaining lumbar vertebral bodies. Multilevel prominent anterior endplate osteophytes. DISC SPACES: Moderat e narrowing L5-S1. Normal height at remaining levels. PARASPINOUS: Negativ e. No paraspinous abnormality is seen. OTHER: Negative. X R/XR lumbar spine min 4V IMPRESSION: 1. Grade 2, borderin g on grade 3, anterior listhesis of L5 on S1; slightly progressed compared to prior study (18 mm anterior listhesis previously). 2. Multilevel mild degenerative changes. Electronically authenticated by: SHABBIR DALLAS Date: 02/12/2024 07:21 Dictated By: Shabbir [place] M.D. Signed By: 02/12/24722 DD/ 0 TD/TT: Math And Physics Instructor: PROF Dior(COMP METB) Reviewed date:12/27/2023 02:23:39 PM Interpretation: Performing Lab: Notes/Report: [facility] , Sodium 135 136-145 mmol/L Potassium 4.3 3.5-5.1 mmol/L Chloride 101 98-107 mmol/L Carbon Dioxide 27.6 21.0-32.0 mmol/L Anion Gap 10.7 Glucose 98 74-106 mg/dL Blood Urea Nitrogen 18.0 7.0-18.0 mg/dL Creatinine 1.02 0.70-1.30 mg/dL Estimated GFR ( Kacie >60 >=60 Estimated GFR (Non- Noemi >60 >=60 BUN Creatinine Ratio 17.6 Calcium 9.2 8.5-10.1 mg/dL Bilirubin Total 0.6 0.2-1.0 mg/dL Aspartate Amino Transferase 15 15-37 U/L Alanine Aminotransferase 29 16-63 U/L Alkaline Phosphatase 49 46-116 U/L Total Protein 6.9 6.4-8.2 g/dL Albumin Level 3.7 3.4-5.0 g/dL Globulin 3.2 Albumin Globulin Ratio 1.2 Performing Lab: see note ML - [facility] LB AMMONIA Reviewed date:12/26/2023 02:59:40 PM Interpretation: Performing Lab: Notes/Report: [facility] , Ammonia 15 11-32 umol/L Performing Lab: see note ML - [facility] LB CT cervical spine wo con Reviewed date:10/10/2024 09:54:30 PM Interpretation: Performing Lab: Notes/Report: Source Facility: [facility]-[address] [place] [address] [place] [address] CT Scan Report Signed Patient: MICHAEL BARAHONA MR#: [id number] : 1940 Acct:[id number] Age/Sex: 83 / M ADM Date: 10/09/24 Loc: ER Attending Dr: Ordering Physician: Collette Armadno Date of Service: 10/09/24 Procedure(s): CT cervical spine wo con Accession Number(s): [id number] cc: Blayne Marion M.D. [place] [address] Patient Name: MICHAEL BARAHONA MRN: [id number] date: 1940 Sex: M Assigned Patient Location: ED.MAIN Current Patient Location: ED.MAIN Accession/Order Number: [id number] Exam Date: 10/09/2024 22:15 Report Date: 10/09/2024 22:27 At the request of: COLLETTE ARMANDO Procedure: CT cervical spine wo con CT Cervical Spine withoutcontrast TECHNIQUE: Axial imaging with 2-D and 3-D reconstruction. The CT exam was performed using one or more the following dose reduction techniques: Automated exposure control, adjustment of the MA and/or Kv according to patient size, or use of the iterative reconstruction technique. COMPARISON: None HISTORY: Neck pain with radiation into the shoulders POST SURGERY CHANGES: None BONY ALIGNMENT: Adequate BONY SPINAL CANAL: Patent central bony canal FRACTURE: None BONY LESIONS: None SOFT TISSUES: Unremarkable DEGENERATIVE CHANGES: Extensive C5-6 and C6-7 disc space narrowing and endplate spurring. Extensive multilevel facet degeneration. Moderate C5-6 and C6-7 bilateral bony neural foraminal narrowing. 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 Impression dictated by: Charles Thomason M.D. 10/09/2024 10:27 PM Dictation Location: [place] [address] Electronically authenticated by: [id number] Y Date: 10/09/2024 22:27 Dictated By: Charles Thomason D.O. Signed By: 10/09/242229 DD/ 26 TD/TT: Math And Physics Instructor: [place] [address] CT Scan Report Signed Patient: SURYA BARAHONA MR#: [id number] : 1940 Acct:[id number] Age/Sex: 83 / M ADM Date: 10/09/24 Loc: ER Attending Dr: Ordering Physician: Collette Armando Date of Service: 10/09/24 Procedure(s): CT cer vical spine wo con Accession Number(s): [id number] cc: Blayne Marion M.D. [place] [address] Patient Name: MICHAEL BARAHONA MRN: [facility]:[id number] date: 1940 Sex: M Assigned Patient Location: ED.MAIN Current Patient Loca tion: ED.MAIN Accession/Order [facility] er: [id number] Exam Date: 10/09/2024 22:15 Report Date: 10/09/2024 22:27 At the request of: COLLETTE ARMANDO Procedure: CT cervic al spine wo con CT Cervical Spine withoutcontrast TECHNIQUE: Axial massimo ging with 2-D and 3-D reconstruction. The CT exam was performed using one or more the following dose reduction techniques: Automated exposure control, adjustment of the MA and/or Kv according to patient size, or use of the iterative reconstruction technique. COMPARISON: None HISTORY: Neck pain w ith radiation into the shoulders POST SURGERY CHANGES : None BONY ALIGNMENT: Adequate BONY SPINAL CANAL: P atent central bony canal FRACTURE: None BONY LESIONS: None SOFT TISSUES: Unremarkable DEGENERATIVE CHANGES : Extensive C5-6 and C6-7 disc space narrowing and endplate spurring. Extensive multilevel facet degeneration. Moderate C5-6 and C6-7 bilateral b cata neural foraminal narrowing. LUNG APICES: Unremarkable ADDITIONAL FINDINGS: C T/CT cervical spine wo con IMPRESSION: Extensiv e C5-6 and C6-7 degeneration. Impression dictated by: Charles Thomason M.D. 10/09/2024 10:27 PM Dictation Location: [place] [address] Electronically authenticated by: [id number] Y Date: 10/09/2024 22:27 Dictated By: Chuy Thomason D.O. Signed By: 10/09/242229 DD/ 26 TD/TT: Math And Physics Instructor: ECG 12 lead Reviewed date:09/04/2024 04:05:31 PM Interpretation: Performing Lab: Notes/Report: Source Facility: [place] [address] [place] [address] Electrocardiograph Report Signed Patient: MICHAEL BARAHONA MR#: [id number] : 1940 Acct:[id number] Age/Sex: 83 / M ADM Date: 09/03/24 Loc: ER Attending Dr: Ordering Physician: Sara Mueller Date of Service: 09/03/24 Procedure(s): ECG 12 lead Accession Number(s): [id number] cc: [facility] Test Date: 2024-09-03 Pat Name: MICHAEL BARAHONA Department: Room: - Gender: Male Career Development Facilitator: : 1940 Requested By: 1854 Order Number: [id number] Reading MD: LEROY THOMAS Measurements Intervals [place] Rate: 83 P: 47 VA: 134 QRS: 45 QRSD: 76 T: 68 QT: 374 QTc: 413 Interpretive Statements 1100 Sinus rhythm 1970 with occasional ectopic premature complexes 9140 abnormal rhythm ECG Compared to ECG 09/03/2024 15:14:14 No significant changes Electronically Signed On 09-04-2024 12:22:30 EDT by LEROY THOMAS Dictated By: Leroy Thomas M.D. Signed By: 09/04/24 1222 DD/ 1514 TD/TT: Math And Physics Instructor: [place] [address] Electrocardiograph Report Signed Patient: SURYA BARAHONA MR#: [id number] : 1940 Acct:[id number] Age/Sex: 83 / M ADM Date: 09/03/24 Loc: ER Attending Dr: Ordering Physician: Sara Mueller Date of Service: 09/03/24 Procedure(s): ECG 12 lead Accession Number(s): [id number] cc: [facility] Test Date: 2024-09-03 Pat Name: MICHAEL FRANZ RUBEN Department: 73 Room: - Gender: Male Career Development Facilitator: : 1940 Requ ested By: 1854 Order Number: [id number] Reading MD: LEROY THOMAS Measurements Intervals [place] Rate: 83 P: 47 VA: 134 QRS: 45 QRSD: 76 T: 68 QT: 374 QTc: 413 Interpretive Statements 1100 Sinus rhythm 1970 with occasional ectopic premature complexes 9140 abnormal rhy [facility] ECG Compared to ECG 09/03/2024 15:14:14 No significant changes Electronically Vivienne d On 09-04-2024 12:22:30 EDT by LEROY THOMAS Dictated By: Leroy Thomas M.D. Signed By: 09/04/24 1222 DD/ 1514 TD/TT: Math And Physics Instructor: ECG 12 lead Reviewed date:09/03/2024 07:33:17 PM Interpretation: Performing Lab: Notes/Report: Source Facility: [place] [address] Electrocardiograph Report Signed Patient: MICHAEL BARAHONA MR#: [id number] : 1940 Acct:[id number] Age/Sex: 83 / M ADM Date: 09/03/24 Loc: ER Attending Dr: Ordering Physician: Sara Mueller Date of Service: 09/03/24 Procedure(s): ECG 12 lead Accession Number(s): [id number] cc: [facility] Test Date: 2024-09-03 Pat Name: MICHAEL BARAHONA Department: Room: - Gender: Male Career Development Facilitator: : 1940 Requested By: 1854 Order Number: [id number] Reading MD: LILIAN PRECIADO M.D. Measurements Intervals [place] Rate: 87 P: 138 VA: 138 QRS: 52 QRSD: 108 T: 37 QT: 382 QTc: 436 Interpretive Statements Sinus rhythm with frequent supraventricular premature complexes ARTIFACT IN LEAD(S) Otherwise normal ECG Compared to ECG 05/01/2024 07:55:45 No significant changes Electronically Signed On 09-03-2024 16:16:10 EDT by LILIAN PRECIADO M.D. Dictated By: LILIAN PRECIADO Signed By: 09/03/24 1616 DD/ 13 TD/TT: Math And Physics Instructor: [place] [address] Electrocardiograph Report Signed Patient: SURYA BARAHONA MR#: [id number] : 1940 Acct:[id number] Age/Sex: 83 / M ADM Date: 09/03/24 Loc: ER Attending Dr: Ordering Physician: Sara Mueller Date of Service: 09/03/24 Procedure(s): ECG 12 lead Accession Number(s): [id number] cc: [facility] Test Date: 2024-09-03 Pat Name: MICHAEL MIRANDA Department: 73 Room: - Gender: Male Career Development Facilitator: : 1940 Requ ested By: [id number] Order Number: [id number] Reading MD: LILIAN PRECIADO M.D. Measurements Intervals [place] Rate: 87 P: 138 VA: 138 QRS: 52 QRSD: 108 T: 37 QT: 382 QTc: 436 Interpretive Statements Sinus rhythm with frequent supraventricular premature complexes ARTIFACT IN LEAD(S) Otherwise normal ECG Compared to ECG 05/01/2024 07:55:45 No significant changes Electronically Vivienne d On 09-03-2024 16:16:10 EDT by LILIAN PRECIADO M.D. Dictated By: LILIAN PRECIADO Signed By: 09/03/24 1616 DD/ 13 TD/TT: Math And Physics Instructor: Prothrombin Time INR Reviewed date:05/01/2024 08:58:24 AM Interpretation: Performing Lab: Notes/Report: [facility] , Prothrombin Time 11.2 9.0-11.6 sec INR 1.06 DESIRED INR: 2.0-3.0 CONDITIONS NOT LISTED BELOW 2.5-3.5 FOR PROSTHETIC HEART VALVE REPLACEMENT 2.5-3.5 RECURRENT THROMBOSIS Performing Lab: see note ML - [facility] LB PTT Reviewed date:05/01/2024 08:58:24 AM Interpretation: Performing Lab: Notes/Report: [facility] , Partial Thromboplastin Time 28.7 22.3-36.2 sec Performing Lab: see note ML - [facility] LB PROF CHEM 8 (BAS METB) Reviewed date:05/01/2024 08:58:24 AM Interpretation: Performing Lab: Notes/Report: [facility] , Sodium 142 136-145 mmol/L Potassium 4.0 3.5-5.1 mmol/L Chloride 104 98-107 mmol/L Carbon Dioxide 26.8 21.0-32.0 mmol/L Anion Gap 15.2 Glucose 113 74-106 mg/dL Blood Urea Nitrogen 16.0 7.0-18.0 mg/dL Creatinine 1.10 0.70-1.30 mg/dL Estimated GFR ( Kacie >60 >=60 mL/min/1.73m 2 Estimated GFR (Non- Noemi >60 >=60 mL/min/1.73m 2 BUN Creatinine Ratio 14.5 Calcium 9.4 8.5-10.1 mg/dL Performing Lab: see note ML - [facility] LB CBC AUTO DIFF Reviewed date:05/01/2024 08:58:23 AM Interpretation: Performing Lab: Notes/Report: [facility] , White Blood Count 9.2 4.0-11.0 10 3/uL Red Blood Count 4.94 4.70-6.10 10 6/uL Hemoglobin 16.1 14.0-18.0 g/dL Hematocrit 47.5 42.0-54.0 % Mean Corpuscular Volume 96.2 80.0-94.0 fL Mean Corpuscular Hemoglobin 32.6 25.9-34.0 pg Mean Corpuscular HGB Conc 33.9 29.9-35.2 g/dL Red Cell Distribution Width 13.0 11.0-15.0 % Platelet Count 223 150-450 10 3/uL Mean Platelet Volume 9.9 9.5-13.5 fL Neutrophils Percent Auto 75.6 43.0-75.0 % Lymphocytes Percent Auto 11.5 20.5-60.0 % Monocytes Percent Auto 8.7 1.7-12.0 % Eosinophils Percent Auto 2.5 0.9-7.0 % Basophils Percent Auto 0.7 0.2-2.0 % Immature Granulocytes Pct Auto 1.0 0.0-0.5 % Neutrophils Absolute Auto 6.9 1.4-6.5 10 3/uL Lymphocytes Absolute Auto 1.1 1.2-3.8 10 3/uL Monocytes Absolute Auto 0.8 0.3-0.8 10 3/uL Eosinophils Absolute Auto 0.2 0.0-0.7 10 3/uL Basophils Absolute Auto 0.1 0.0-0.1 10 3/uL Immature Granulocytes Abs Auto 0.09 0.00-0.03 10 3/uL Performing Lab: see note ML - [facility] LB Reason For Referral No Information Medications Medication SIG (Take, Route, Frequency, Duration) Notes Start Date End Date Status hydrOXYzine HCl 25 MG 1/2 to 1 tablet as needed Orally BID prn for 30 days 01/02/2024 Unknown Levothyroxine Sodium 50 MCG 1 tablet in the morning on an empty stomach Orally Once a day for 90 days Unknown Orphenadrine Citrate ER 100 MG TAKE 1 TABLET BY MOUTH TWICE DAILY Oral for 7 Days Active Flomax 0.4 MG 1 capsule Orally twi ce daily Unknown Flonase Allergy Relief 50 MCG/ACT 1 spray in each nostril Nasally Twice a day for 30 days 09/13/2024 Unknown Clobetasol Propionate 0.025 % 1 application Externally Twice a day for 14 days 09/13/2024 Unknown Compressor/Nebulizer - as directed as needed 08/23/2023 Unknown Albuterol Sulfate HFA 108 (90 Base) MCG/ACT INHALE 2 PUFFS BY MOUTH EVERY 4 HOURS NEEDED for 90 Unknown Breztri Aerosphere 160/9/4.8 mcg 2 puffs inhalation twice daily Unknown predniSONE 20 MG 2 tablet Orally Once a day for 3 days 10/04/2024 Unknown Albuterol Sulfate (2.5 MG/3ML) 0.083% 3 mL as needed Inhalation every 8 hrs Unknown Azithromycin 250 MG as directed Orally daily for 5 days 03/14/2024 Unknown Gabapentin 100 MG 1 tablet Orally two times daily-PRN for 30 days Unknown ZyrTEC Allergy 10 MG 1 tablet Orally Onc e a day Unknown PreserVision AREDS - 2 capsules Orally daily Unknown Tums Unknown Ondansetron HCl 4 MG 1 tablet Orally Onc e a day for 14 days 12/26/2023 Unknown Pantoprazole Sodium 40 MG 1 tablet Orall y Once a day for 30 days 12/26/2023 Unknown Lexapro 10 MG 1 tablet Orally Once a day for 30 days 09/13/2024 Unknown Nebulizer/Tubing/Mouthpie ce - as directed 08/23/2023 Unknown Social History Tobacco Use: Social History Observation Description Date Details (start date - stop date) Former Smoker 05/18/1952 - 05/09/2005 Tobacco Use/Smoking Question Answer Notes Patient is a former smoker When did you start smoking? 05/18/1952 When did you stop smoking? 05/09/2005 How long has it been since you last smoked? > 10 years Alcohol Screen (Audit-C) Question Answer Notes Did you have a drink containing alcohol in the p ast year? No Points 0 Interpretation Negative AUDIT-C (Standard) Question Answer Notes Did you have a drink containing alcohol in the p ast year? No Points 0 Interpretation Negative Problems Problem Type SNOMED Code ICD Code Onset Dates Problem Status W/U Status Risk Notes Problem 10895902 Essential (prima ry) hypertension (I10) Active confirmed Problem 18515904 Hypothyroidism, unspecified (E03.9) Active confirmed Problem 463551378 Chronic obstruct brady pulmonary disease, unspecified (J44.9) Active confirmed Problem 605273620 Pure hyperglyceridemia (E78.1) Active confirmed Problem 22518765 Paresthesia of s kin (R20.2) Active confirmed Problem COPD - Chronic obstructive pulmonary disease (09611928) COPD (chronic obstructive pulmonary disease) (J44.9) Active confirmed Problem Gastroesophageal reflux disease (576889545) GERD (gastroesophageal reflux disease) (K21.9) Active confirmed Problem Hypothyroidism (82985709) Hypothyroidism (E03.9) Active confirmed Problem Anxiety (06226482) Anxiety (F41.9) Active confi rmed Problem Neck pain (14106164) Neck pain (M54.2) Active confirmed Problem Malignant tumor of prostate (127855379) Prostate cancer (C61) Active confirmed Problem Benign prostatic hyperplasia (527911035) BPH (benign prostatic hyperplasia) (N40.0) Active confirmed Problem Sinusitis (26236244) Sinusitis (J32.9) Active confirmed Problem Emphysema (61690472) 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) Active confirmed Problem Pulmonary hypertension (36154150) Pulmonary hypertension (I27.20) Active confirmed Problem Neurogenic claudication (103153927) Lumbar stenosis with neurogenic claudication (M48.062) Active confirmed Problem Disease caused by Severe acute respiratory syndrome coronavirus 2 (disorder) (944683581) COVID (U07.1) Active confirmed Vital Signs Heart Rate 85 /min 10/16/2024 on room air Temperature 97.8 degrees Fahrenheit 07/25/2024 Oximetry 97 % 10/16/2024 on room air Blood pressure diastolic 64 mm Hg 10/16/2024 on room air Height 65 in 08/17/2024 2L Blood pressure systolic 118 mm Hg 10/16/2024 on r oom air Weight 186.2 lbs 07/25/2024 BMI 30.98 kg/m2 07/25/2024 Procedures Procedure Date Ordered Date Performed Result Body Sit e Echocardiogram 05/07/2024 N/A Encounters Encounter Location Date Provider Diagnosis [address] [address] 12/26/2023 Marzena Ajit Essential (primary) hypertension I10 ; Enlarged lymph nodes R59.9 ; GERD (gastroesophageal reflux disease) K21.9 ; Nausea & vomiting R11.2 and Itching L29.[address] [address] 03/14/2024 Marzena Ajit Cough R05.9 ; Itchin g L29.9 and Folliculitis L73.[address] [address] 08/17/2024 Marzena Ajit Back pain M54.9 and Chronic obstructive pulmonary emphysema J43.[address] [address] 09/12/2024 Marzena Ajit Rash and nonspecific skin eruption R21 ; Anxiety F41.9 and COPD (chronic obstructive pulmonary disease) J44.[address] [address] 10/16/2024 Marzena Ajit Sinusitis J32.9 ; Ne ck pain M54.2 and Anxiety F41.[address] [address] 10/04/2024 Marzena Ajit Bronchitis J40 ; Lumbar stenosis with neurogenic claudication M48.062 and Anxiety F41.[address] [address] 04/20/2024 Marzena Mccord Itching L29.9 and Essential (primary) hypertension I10 [facility] [address] [place] [address] 04/30/2024 Marzena Mccord Pre-operative clearance Z01.818 [facility] [address] [facility] [place] [address] 07/25/2024 Marzena Mccord Pre-op evaluation Z01.818 and Hypothyroidism, unspecified E03.9 [facility] [address] [facility] [place] [address] 09/13/2024 Marzena Mccord [facility] [address] [facility] [place] [address] 10/10/2024 Saud Hoy Neck pain M54.2 [facility] [address] [facility] [place] [address] 10/29/2024 Marzena Mccord [facility] [address] [facility] [place] [address] 11/23/2024 Marzena Mccord [facility] [address] [facility] [place] [address] 07/31/2024 Marzena Mccord [facility] [address] [facility] [place] [address] 08/17/2024 Marzena Mccord [facility] [address] [facility] [place] [address] 08/17/2024 Marzena Mccord [facility] [address] [facility] [place] [address] 08/20/2024 Marzena Mccord [facility] [address] [facility] [place] [address] 09/10/2024 Marzena Mccord [facility] [address] [facility] [place] [address] 09/13/2024 Marzena Mccord [facility] [address] [facility] [place] [address] 05/14/2024 Marzena Mccord [facility] [address] [facility] [address] 05/17/2024 Marzena Mccord Cough R05.9 [facility] [address] [facility] [address] 06/08/2024 Marzena Mccord [facility] [address] [facility] [address] 07/25/2024 Marzena Mccord Hypothyroidism, unspecified E03.9 and Cough R05.9 [facility] [address] [facility] [address] 07/25/2024 Marzena Mccord [facility] [address] [facility] [address] 07/26/2024 Marzena Mccord [facility] [address] [facility] [address] 03/15/2024 Marzena Mccord Bacterial folliculit is L73.8 [facility] [address] [place] [facility] [place] [address] 05/01/2024 Marzena Mccord [facility] [address] [place] [facility] [place] [address] 05/01/2024 Marzena Mccord [facility] [address] [place] [facility] [place] [address] 05/07/2024 Marzena Mccord Pre-op testing Z01.8 18 [facility] [address] [place] [facility] [place] [address] 05/07/2024 Marzena Mccord [facility] [address] [facility] [address] 05/11/2024 Marzena Mccord [facility] [address] [facility] [address] 12/26/2023 Marzena Mccord [facility] [address] [facility] [address] 12/27/2023 Marzena Mccord [facility] [address] [place] [facility] [place] [address] 12/30/2023 Marzena Mccord Assessments Encounter Date Diagnosis (ICD Code) Assessment Notes Treatment Notes Treatment Clinical Notes Section Notes 04/20/2024 Itching (ICD-10 - L29.9) helps some 12/26/2023 Essential (primary) hypertension (ICD-10 - I10) 12/26/2023 Enlarged lymph nodes (ICD-10 - R59.9) 03/14/2024 Itching (ICD-10 - L29.9) 03/14/2024 Cough (ICD-10 - R05.9) takes daily prednisone 04/30/2024 Pre-operative clearance (ICD-10 - Z01.818) labs reviewed, ok chest xray, EKG both ok seeing pulm this afternoon review last cardiology notes 07/25/2024 Pre-op evaluation (ICD-10 - Z01.818) PST upcoming breathing about same no new concerns check with pulm on pre op clearance, was cleared in Apr [facility] good [facility] , sees cardiology prn 08/17/2024 Back pain (ICD-10 - M54.9) back pain , post surgical pain radiates down left leg starting PT soon back brace fu neurosurg next month incision not well approx, will notify surgeon , see if they want him to fu sooner 09/12/2024 Anxiety (ICD-10 - F41.9) CUAUHTEMOC 7 shows moderate anxiety willing to try medication, needs to do something pat and state trial of lexapro, stop med if cant tolerate fu 4 weeks 09/12/2024 Rash and nonspecific skin eruption (ICD-10 - R21) 10/16/2024 Neck pain (ICD-10 - M54.2) helping requesting few more 10/16/2024 Sinusitis (ICD-10 - J32.9) augmentin called in 10/04/2024 Bronchitis (ICD-10 - J40) fu as needed 03/15/2024 Bacterial folliculitis (ICD-10 - L73.8) 05/07/2024 Pre-op testing (ICD-10 - Z01.818) 05/17/2024 Cough (ICD-10 - R05.9) 07/25/2024 Hypothyroidism, unspecified (ICD-10 - E03.9) 10/10/2024 Neck pain (ICD-10 - M54.2) 07/25/2024 Cough (ICD-10 - R05.9) 10/04/2024 Lumbar stenosis with neurogenic claudication (ICD-10 - M48.062) 10/16/2024 Anxiety (ICD-10 - F41.9) improved on lexapro, continue 08/17/2024 Chronic obstructive pulmonary emphysema (ICD-10 - J43.9) sent home on oxygen 2L 98% reduce O2 to 1 L continue to monitor, report Tuesday RT consult? 09/12/2024 COPD (chronic obstructive pulmonary disease) (ICD-10 - J44.9) check with [facility] office if can get in earlier O2 as needed 07/25/2024 Hypothyroidism, unspecified (ICD-10 - E03.9) 03/14/2024 Folliculitis (ICD-10 - L73.9) 04/20/2024 Essential (primary) hypertension (ICD-10 - I10) high today continue monitor states not that high at home 12/26/2023 GERD (gastroesophageal reflux disease) (ICD-10 - K21.9) 12/26/2023 Nausea & vomiting (ICD-10 - R11.2) fu GI, see if can move apt up ? 10/04/2024 Anxiety (ICD-10 - F41.9) continue lexapro 12/26/2023 Itching (ICD-10 - L29.9) checking some labs benadryl hasnt helped 04/20/2024 Other discussed upcoming back sx, hes still weighing his options, not sure about it Plan Of Treatment Pending Test Test Name Order Date CMP (COMPLETE METABOLIC PANEL) UA (URINALYSIS, COMPLETE) 07/21/2023 CBC WITH DIFF 07/21/2023 Six minute walk 08/23/2023 Echocardiogram 05/07/2024 T3 FREE, T4 FREE and TSH 11/03/2022 URINE CULTURE 07/21/2023 CMP - Comprehensive Metabolic Panel 12/07 CBC AUTO DIFF 11/03/2022 GLYCOHEMOGLOBIN A1C 11/03/2022 LIPID PROFILE 11/03/2022 PROF 14(COMP METB) 11/03/2022 THYROID PANEL (T4/TSH/FREE T3) THYROID PANEL (T4/TSH/FREE T3) MRI Cervical Spine w/o contrast * 2024 Insurance Providers Payer Name Payer Address Payer Phone Subscriber Number Group Number Insured Name Patient Relationship to Insured Coverage Start Date Coverage End Date [employer] ADV PLAN [address] [place] [phone] [id number] [place] Michael Self - patient is the insured 4 Medical (General) History Medical History History ICD Code Degenerative joint disease M19.90 Paresthesia R20.2 Pericardial effusion I31.9 Hyperglycemia R73.9 Chronic diastolic heart failure I50.32 COVID-19 U07.1 Pulmonary hypertension I27.20 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
[2024-12-11 11:59] LABS: Prostate Specific Antigen Dx <0.13 ng/mL (<=4.00)
== END 2024-12-11 10:25 | disposition home or self-care (01) ==
LOC: LAB 10:32
PROVIDERS: PCP Family Medicine; Visit Provider Urology
DX: Z85.46 Personal history of malignant neoplasm of prostate (principal)
CPT/HCPCS: 36415; 84153